=== PATIENT | female | born 1940 | race American Indian/Alaskan Native ===

== ENCOUNTER 2024-01-26 16:10 | Emergency (ER) | payer MEDICARE, MEDICAID, SELFPAY ==
[2024-01-26 16:18] VITALS: BP 150/76; PULSE 86; RESP 19; TEMP 37.1; O2SAT 96; BMI 30.2
--- NOTE | 2024-01-26 16:34 | XR_ITS ---
Examination: Pelvic ultrasound, transabdominal, complete Technique: Transabdominal ultrasound of the pelvis performed using grayscale imaging Date and time of exam: January 26, 2024 at 1924 hrs. Indications: Urinary tract infections abdominal pelvic pain beginning 5 days ago Findings: Absent uterus Ovaries not visualized No free fluid in the pelvis Impression: No pelvic mass No free fluid in the pelvis Marked urinary bladder wall thickening
--- NOTE | 2024-01-26 16:35 | PD.EDRME ---
Rapid Medical Screening Exam RME Arrival date/time: 01/26/24 16:10 83-year-old female presents emergency department complaint of pelvic pain Chief Complaint: Abdominal Pain Vital signs: Vital Signs Temperature 98.8 F 01/26/24 16:18 Pulse Rate 86 01/26/24 16:18 Respiratory Rate 19 01/26/24 16:18 Blood Pressure 150/76 H 01/26/24 16:18 Pulse Oximetry (%) 96 01/26/24 16:18 Oxygen Delivery Method Room Air 01/26/24 16:18
[2024-01-26 17:02] LABS: Basophils # (Auto) 0.1 Thou/mm3 (0.0-0.2); Basophils % (Auto) 1 % (0-2.5); Eosinophils # (Auto) 0.2 Thou/mm3 (0.0-0.5); Eosinophils % (Auto) 2 % (0-10); Hematocrit 28.8 % (36.0-46.0); Hemoglobin 9.5 g/dL (12.0-16.0); Immature Granulocytes % (Auto) 1 % (0-0); Lymphocytes # (Auto) 3.5 Thou/mm3 (1.0-4.8); Lymphocytes % (Auto) 30 % (10-50); Mean Corpuscular Hemoglobin 30.4 pg (25.0-35.0); Mean Corpuscular Volume 92 fL (80-100); Monocytes # (Auto) 0.7 Thou/mm3 (0.0-0.8); Monocytes % (Auto) 6 % (0-12); Neutrophils % (Auto) 61 % (37-80); Nucleated Red Blood Cell % 0 /100 WBC (0); Platelet Count 297 Thou/mm3 (140-440); Red Blood Count 3.12 Miln/mm3 (4.00-5.20); White Blood Count 11.5 Thou/mm3 (3.6-11.0)
[2024-01-26 17:14] LABS: Collection Type, Urine Clean Catch
[2024-01-26 17:30] LABS: Bacteria,Urine 2+; Bilirubin,Urine Negative (Negative); Blood,Urine 3+ (Negative); Glucose, Urine 4+ (Negative); Ketones,Urine Negative (Negative); Leukocyte Esterase,Urine Positive (Negative); Nitrite,Urine Negative (Negative); Protein,Urine 3+ (Neg - Trace); RBC,Urine 109 /hpf (0-3); Specific Gravity,Urine 1.013 (1.001-1.035); Squamous Epithelial Cell,Urine 7 /hpf (0-5); Urobilinogen,Urine Negative mg/dL (0.0-1.0); WBC,Urine 5781 /hpf (0-5)
[2024-01-26 17:43] LABS: Alanine Aminotransferase 24 U/L (10-49); Albumin, Serum 4.2 gm/dL (3.4-4.8); Albumin/Globulin Ratio 1.4 (1.2-2.2); Alkaline Phosphatase 294 U/L (46-116); Anion Gap 6 (7-16); Aspartate Amino Transferase 15 U/L (0-34); BUN/Creatinine Ratio 16 Ratio (12-20); Bilirubin,Total 0.2 mg/dL (0.3-1.2); Blood Urea Nitrogen 44 mg/dL (9-23); Calcium 9.1 mg/dL (8.3-10.6); Calcium (Corrected) 9.1 mg/dL (8.5-10.1); Carbon Dioxide 22.7 mMol/L (20.0-31.0); Chloride 100 mMol/L (98-107); Creatinine (Component) 2.8 mg/dL (0.6-1.3); Estimated Creatinine Clearance 14.9 mL/min (>60); Globulin 2.9 gm/dL (2.3-3.5); Osmolality,Calculated 289 (275-295); Potassium 5.6 mMol/L (3.4-5.1); Sodium 129 mMol/L (136-145); Total Protein 7.1 gm/dL (5.7-8.2); eGFR 16 See Note
[2024-01-26 17:49] LABS: Clarity,Urine Cloudy (Clear/Hazy); Color,Urine Lt-Yellow (Lt Yel-Yel); Culture Indicated,Urine Yes
[2024-01-26 18:06] LABS: Glucose 439 mg/dL (74-106)
--- NOTE | 2024-01-26 18:35 | XR_ITS ---
Examination: CT abdomen and pelvis without contrast. Coronal 3-D reconstructions. Sagittal 2-D reconstructions. Date and time of exam:January 26, 2024 1907 hrs. Comparison August 03, 2023 Indications: Abdominal pain flank pain today CTDI: vol (mGy): 9.74 DLP: (mGycm): 565 Technique: Axial images of the abdomen have been obtained, 3 mm slice thickness Intravenous contrast material has not been administered. Low dose protocols were performed. One or more of the following dose reduction techniques were used; automated exposure control, adjustment of the mA and/or KV according to patient size, use of iterative reconstruction technique. Findings: No focal liver or splenic lesions Absent gallbladder No pancreatic mass, small pancreatic calcifications Normal adrenal glands Moderate bilateral renal parenchymal scar formation Minimal bilateral hydronephrosis No renal or ureteral calculi No pericecal inflammatory change No bowel obstruction Severe thickening of the urinary bladder with pericystic inflammatory change, urinary bladder wall measuring up to 21 mm on the right side No diverticulitis Moderate disc narrowing L5-S1 Impression: Severe thickening of the urinary bladder wall with pericystic inflammatory change, this may be secondary to cystitis with ureterovesical reflux producing mild bilateral hydronephrosis with bilateral urinary tract infection, however, bladder carcinoma is not excluded, consider cystography follow-up
[2024-01-26 20:09] VITALS: BP 146/68; PULSE 85; RESP 12; TEMP 37.1; O2SAT 100
--- NOTE | 2024-01-26 20:20 | PD.EDABDPN ---
ED Abdominal Pain RME/HPI General Chief Complaint: Abdominal Pain Stated complaint: UTI THAT TURNED INTO SOMETHING ELSE Arrival date/time: 01/26/24 16:10 Source: patient Mode of arrival: ambulatory Limitations: no limitations RME / HPI RME / HPI narrative: 01/26/24 16:10 83-year-old female presents emergency department complaint of pelvic pain Dr. Ayala?s Main ED Evaluation: 83-year-old female with history of irritable bladder who presents with worsening pain and polyuria. She denies dysuria. She takes insulin for her diabetes where she took 45 units this morning because she was in town shopping; she did not take her afternoon insulin. Related Data Home Medications ?Medication ?Instructions ?Recorded ?Confirmed loratadine 10 mg tablet 10 mg PO QDAY 04/22/21 08/03/23 aspirin 81 mg tablet,delayed 81 mg PO DAILY 06/20/21 08/03/23 release omeprazole 20 mg capsule,delayed 20 mg PO QDAY 06/20/21 08/03/23 release insulin degludec 200 unit/mL (3 45 unit subcut QDAY 08/12/21 08/03/23 mL) subcutaneous pen (Tresiba FlexTouch U-200 insulin) atorvastatin 20 mg tablet 20 mg PO HS 03/11/22 08/03/23 benzonatate 100 mg capsule 100 mg PO TID 03/11/22 08/03/23 insulin aspart U-100 100 unit/mL 6 unit subcut TIDWM 03/11/22 08/03/23 (3 mL) subcutaneous pen (Novolog FlexPen U-100 Insulin aspart) amitriptyline 25 mg tablet 25 mg PO QDAY PRN Anxiety 01/25/23 08/03/23 diltiazem HCl 240 mg 240 mg PO QDAY 05/19/23 08/03/23 tablet,extended release 24 hr Previous Rx's ?Medication ?Instructions ?Recorded amlodipine 10 mg tablet 10 mg PO QDAY #30 tabs 01/27/23 furosemide 40 mg tablet (Lasix) 40 mg PO QAM #30 tabs 05/25/23 losartan 50 mg tablet 50 mg PO QDAY #30 tabs 05/25/23 hydroxyzine pamoate 25 mg capsule 25 mg PO HS #30 caps 06/25/23 pentosan polysulfate sodium 100 mg 100 mg PO TID #90 caps 09/21/23 capsule cephalexin 500 mg capsule 500 mg PO TID 5 days #15 caps 01/26/24 Allergies Allergy/AdvReac Type Severity Reaction Status Date / Time amoxicillin Allergy Severe Vomiting Verified 01/26/24 16:16 codeine Allergy Severe PALPITATION Verified 01/26/24 16:16 S diazepam Allergy Severe RAPID Verified 01/26/24 16:16 HEARTRATE hydrocodone Allergy Severe Vomiting Verified 01/26/24 16:16 hydromorphone Allergy Severe Agitated Verified 01/26/24 16:16 ibuprofen Allergy Severe BLEEDING Verified 01/26/24 16:16 IN STOMACH PER PT meperidine Allergy Severe RAPID Verified 01/26/24 16:16 HEARTRATE morphine Allergy Severe RAPID Verified 01/26/24 16:16 HEARTRATE propoxyphene Allergy Severe RAPID Verified 01/26/24 16:16 HEARTRATE adhesive tape AdvReac Severe Hives Verified 01/26/24 16:16 levofloxacin AdvReac Severe VOMITS Verified 01/26/24 16:16 Review of Systems Review of Systems Systems Reviewed: All systems reviewed, normal except as documented Past Medical History Past Medical History NEUROLOGIC: Positive Traumatic Brain Injury; Negative Neurological Disorders, Cerebrovascular Accident, Transient Ischemic Attacks (TIA), Dementia, Alzheimer's Disease, Parkinson's Disease, Brain Tumor, Meningitis, Seizures, Epilepsy, Multiple Sclerosis, Cerebral Palsy, Amyotrophic Lateral Sclerosis (ALS/Lilliam Gehrig's), Guillain-[place] Syndrome, Spina Bifida, Paralysis, Peripheral Neuropathy, Junior's Palsy, Subdural Hematoma, Migraine, Head Trauma or Spinal Cord Injury CARDIAC: Positive Cardiac Disorders, Myocardial Infarction, Hypercholesterolemia, Congestive Heart Failure, Edema, Deep Vein Thrombosis and Hypertension; Negative Cardiac Arrhythmia, Atrial Fibrillation, Angina, Heart Murmur, Coronary Artery Disease, Atherosclerotic Heart Disease, Peripheral Vascular Disease, Aneurysm, Congenital Heart Disease, Valvular Heart Disease, Rheumatic Fever, Cardiomyopathy, Pericarditis, Cellulitis, Hypotension or Varicose Veins RESPIRATORY: Positive Chronic Obstructive Pulmonary Disease (COPD), Asthma, Bronchitis and Pneumonia; Negative Emphysema, Pulmonary Fibrosis, Cystic Fibrosis, Tuberculosis, Pulmonary Embolism, Pulmonary Edema or Sleep Apnea GASTROINTESTINAL: Positive Gastrointestinal Disorders, Gastroesophageal Reflux Disease and Obesity; Negative Hepatitis, Cirrhosis, Pancreatitis, Celiac Disease, Gall Bladder Disease, Gastrointestinal Bleed, Esophageal Varices, Romero's Esophagus, Colitis, Ulcerative Colitis, Diverticulitis, Diverticulosis, Ulcer, Colorectal Cancer, Irritable Bowel, Crohn's Disease, Obstructive Bowel, Hiatal Hernia or Hemorrhoids GENITOURINARY: Positive Genitourinary Disorders and Renal Disease; Negative Kidney Stones, Polycystic Kidney Disease, Neurogenic Bladder, Inguinal Hernia, Dialysis or Benign Prostatic Hyperplasia REPRODUCTIVE: Positive Previous Pregnancies; Negative Breast Cancer, Endometriosis, Genital Herpes, Gonorrhea, Pelvic Inflammatory Disease, Syphilis or Uterine Prolapse MUSCULOSKELETAL: Positive Musculoskeletal Disorders and Arthritis; Negative Muscular Dystrophy, Myasthenia Gravis, Marfan's Syndrome, Bone Cancer, Rheumatoid Arthritis, Osteoporosis, Degenerative Disk Disease, Gout, Scoliosis, Carpal Tunnel Syndrome, Fibromyalgia, Fractures, Degenerative Joint Disease, Osteomyelitis or Poliovirus ENT: Negative Cataracts, Glaucoma, Blind, Retinal Detachment, Macular Degeneration, Ear Infection, Deafness, Head Trauma or Eye Prosthesis ENDOCRINE: Positive Endocrine Disorders and Diabetes Mellitus Type 2; Negative Diabetes Mellitus Type 1, Hypoglycemia, [place]'s Syndrome, [place]'s Disease, Hyperthyroidism, Hypothyroidism, Parathyroid Disease, Pituitary Disease, Systemic Lupus Erythematosus, Syndrome of Inappropriate Antidiuretic Hormone (SIADH), Adrenal Disease or Graves' Disease HEMATOLOGIC: Negative Blood Disorders, Sickle Cell Disease or Clotting Problems PSYCHO/SOCIAL: Positive Anxiety; Negative Psychiatric Problems, Schizophrenia, Recreational Drug Use, Bipolar Disorder, Depression, Behavior Problems, Self-Mutilation, Attention Deficit Disorder, Attention Deficit Hyperactivity Disorder, Depression, Post Traumatic Stress Disorder or Eating Disorder OTHER HISTORY: Positive Hospitalization, Blood Transfusions (1 unit PRBC today 09/18), Chicken Pox, Measles and Mumps; Negative Autoimmune Disease, Down Syndrome, Autism, Developmental Delay, Shingles, Falls, Blood Transfusion Reaction, Anesthesia Reactions, Organ Transplant, Chemotherapy, Radiation Therapy, Hyperbaric Therapy, MRSA, VRSA, Vancomycin-Resistant Enterococci, Human Immunodeficiency Virus (HIV), Rubella (Syriac Measles), Pertussis, Clostridium Difficile, Cancer, Breast Cancer, Cervical Cancer, Colorectal Cancer, Lung Cancer or Ovarian Cancer Family History FAMILY HISTORY: Positive Family Respiratory Disorders, Family Cardiac Disorders and Family Cancer; Negative Family Psychiatric Problems, Family Gastrointestinal Problems, Family Surgery or Family Anesthesia Reaction Surgical History SURGICAL: Positive Angiogram, Abdominal Surgery, Joint Replacement and Hysterectomy; Negative Cardiac Surgery, Open Heart Surgery, Coronary Artery Bypass Graft, Valve Replacement, Vascular Surgery, Coronary Stent, Cardiac Catheterization, Pacemaker, Auto Implanted Cardiovert Defib, Carotid Endarterectomy, Endocrine Surgery, Thyroidectomy, Ear Surgery, Tympanostomy Tube, Eye Surgery, Nose Surgery, Oral Surgery, Tonsillectomy, Adenoidectomy, Cochlear Implant, Corneal Transplant, Throat Surgery, Tracheostomy, Gastric Bypass Surgery, Gastrostomy, Bowel Surgery, Nephrectomy, Amputation, Arthroscopy, Neurologic Surgery, Brain Shunt, Mastectomy, Lumpectomy, Tubal Ligation, Section or Organ Transplant Social History SMOKING STATUS: Never smoker SECOND HAND EXPOSURE: No SUBSTANCE USE: does not use ED Exam Narrative Physical exam: GENERAL APPEARANCE: AxOx4, generally well-appearing, no acute distress. HEENT: NC, AT. MMM. EOMI, clear conjunctiva, oropharynx clear. NECK: Supple without lymphadenopathy. No stiffness or restricted ROM. HEART: Normal rate and regular rhythm, normal S1/S1, no m/r/g LUNGS: CTAB, moving air well. No crackles or wheezes are heard. ABDOMEN: Soft, nontender, nondistended with good bowel sounds heard. BACK: No midline C/T/L spine pain or deformity, No CVAT, no obvious deformity. EXTREMITIES: Without cyanosis, clubbing or edema. MUSCULOSKELETAL: FROM of all major joints, no chest tenderness NEUROLOGICAL: Grossly nonfocal. Alert and oriented, moving all 4 extremities. CN not formally tested but appear grossly intact. Observed to ambulate with normal gait. Skin: Warm and dry without any rash. General Limitations: Present no limitations Course Quality Measures none Orders Category Date Time Status CT abdomen pelvis wo con Stat Exams 01/26/24 18:35 Completed US pelvic complete Stat Exams 01/26/24 16:34 Completed CBC Stat Lab 01/26/24 16:42 Completed Comprehensive Metabolic Panel Stat Lab 01/26/24 16:42 Completed UA, C/S IF [Urinalysis, C/S if Indicated] Stat Lab 01/26/24 17:00 Completed Urine Culture Stat Lab 01/26/24 17:00 Received Insulin Regular Med 01/26/24 20:02 Discontinued 6 unit SC X1 ONE Sodium Chloride 0.9% 1000 ml [Ns] 1,000 ml Med 01/26/24 20:02 Discontinued IV 999 mls/hr cefTRIAXone/D5w 1gm IV premix [Rocephin/D5w 1gm IV Med 01/26/24 20:02 Discontinued premix] 50 ml IV X1 Vital Signs Vital signs: Vital Signs Temperature 98.8 F 01/26/24 16:18 Pulse Rate 86 01/26/24 16:18 Respiratory Rate 19 01/26/24 16:18 Blood Pressure 150/76 H 01/26/24 16:18 Pulse Oximetry (%) 96 01/26/24 16:18 Oxygen Delivery Method Room Air 01/26/24 16:18 Abdominal Pain MDM MDM Narrative MDM Narrative:: Scribe Attestation: ISami am scribing for and in the presence of Dr. Ayala. Provider Notation: Although this document has been carefully reviewed, there may still be some phonetic and other typographical errors. These errors are purely grammatical due to imperfections in the software program and should not be construed in any way to compromise the substance of the patient's medical care during this visit. Patient data External records reviewed:: [facility] previous records Clinical information provided by:: patient Social determinants that could affect healthcare access:: none Patient has the following chronic illnesses:: hypertension, T2DM, CKD stage IV follows up with Dr. Brito, anxiety How is presenting disease/condition affected by chronic disease/condition?: uneffected by Evaluation data The following diagnostics were reviewed and interpreted by me:: lab results and radiology exam(s) Lab and/or radiology exams considered but not ordered:: none Interpretation Summary: Examination: Pelvic ultrasound, transabdominal, complete Technique: Transabdominal ultrasound of the pelvis performed using grayscale imaging Date and time of exam: January 26, 2024 at 1924 hrs. Indications: Urinary tract infections abdominal pelvic pain beginning 5 days ago Findings: Absent uterus Ovaries not visualized No free fluid in the pelvis Impression: No pelvic mass No free fluid in the pelvis Marked urinary bladder wall thickening Dictated By: Rory Meeks MD Examination: CT abdomen and pelvis without contrast. Coronal 3-D reconstructions. Sagittal 2-D reconstructions. Date and time of exam:January 26, 2024 1907 hrs. Comparison August 03, 2023 Indications: Abdominal pain flank pain today Findings: No focal liver or splenic lesions Absent gallbladder No pancreatic mass, small pancreatic calcifications Normal adrenal glands Moderate bilateral renal parenchymal scar formation Minimal bilateral hydronephrosis No renal or ureteral calculi No pericecal inflammatory change No bowel obstruction Severe thickening of the urinary bladder with pericystic inflammatory change, urinary bladder wall measuring up to 21 mm on the right side No diverticulitis Moderate disc narrowing L5-S1 Impression: Severe thickening of the urinary bladder wall with pericystic inflammatory change, this may be secondary to cystitis with ureterovesical reflux producing mild bilateral hydronephrosis with bilateral urinary tract infection, however, bladder carcinoma is not excluded, consider cystography follow-up Dictated By: Rory Meeks MD Medications / Prescriptions Medications or Prescriptions considered but not ordered:: None Medication administrations:: Medication Administration History Discontinued Medications Sodium Chloride (Ns) 1,000 mls @ 999 mls/hr IV .Q1H1M ONE Stop: 01/26/24 21:02 Last Infusion: 01/26/24 22:07 Dose: Infused Documented By: Admin: 01/26/24 20:52 Dose: 999 mls/hr Documented By: JEANNINE Ceftriaxone Sodium/Dextrose (Rocephin/D5w 1gm Iv Premix) 50 mls @ 100 mls/hr IV X1 ONE Stop: 01/26/24 20:31 Last Infusion: 01/26/24 21:29 Dose: Infused Documented By: Admin: 01/26/24 20:52 Dose: 100 mls/hr Documented By: JEANNINE Insulin Human Regular (Insulin Hum Regular 1 Unit/0.01 Ml (Per Unit)) 6 unit SC X1 ONE Stop: 01/26/24 20:03 Last Admin: 01/26/24 20:51 Dose: 6 unit Documented By: JEANNINE Co-signed By: MARKIE As above Consultations Consultation(s) initiated? (list below): No Diagnosis Differential diagnosis abdominal pain: abdominal pain, diverticulitis, gastroenteritis and pancreatitis Most likely diagnosis given after review of the tests above:: Urinary tract infection, Hyperglycemia without ketosis Admission Indicated Admission indicated?: not indicated Admission Request Was there a request for admission?: No Disposition Plan Disposition Plan: Discharge Discharge Attestation Discharge Attestation: The patient and all family members were given an opportunity to ask questions and understood the discharge instructions. Discharge instructions specifically effects, indications for sooner follow up or return to the emergency department, and the expected course of current diagnosis. Patient condition: Stable Discharge Plan Plan Patient Disposition: HOME (Self Care) Prescriptions/Referrals Prescriptions/Med Rec: New cephalexin 500 mg capsule 500 mg PO TID 5 Days Qty: 15 0RF No Action loratadine 10 mg tablet 10 mg PO QDAY Patient Comments: TAKE 1 TABLET BY MOUTH EVERY DAY insulin degludec [Tresiba FlexTouch U-200] 200 unit/mL (3 mL) insulin pen 45 unit SUBCUT QDAY aspirin 81 mg Tablet,Delayed Release (Dr/Ec) 81 mg PO DAILY Hold Instructions: Resume on 09/29/23. Please hold until you see your PCP omeprazole 20 mg Capsule,Delayed Release(Dr/Ec) 20 mg PO QDAY amitriptyline 25 mg tablet 25 mg PO QDAY PRN (Reason: Anxiety) amlodipine 10 mg tablet 10 mg PO QDAY Qty: 30 0RF Hold Instructions: untill follow cardiology outpatient diltiazem HCl 240 mg Tablet Extended Release 24 Hr 240 mg PO QDAY Hold Instructions: Resume on 10/05/23. Please f/u with your PCP before resuming this medicine furosemide [Lasix] 40 mg tablet 40 mg PO QAM Qty: 30 0RF Hold Instructions: Resume on 09/28/23. Please f/u with your PCP before starting this medicine losartan 50 mg tablet 50 mg PO QDAY Qty: 30 1RF atorvastatin 20 mg tablet 20 mg PO HS benzonatate 100 mg capsule 100 mg PO TID Patient Comments: TAKE 1 CAPSULE BY MOUTH TWICE DAILY insulin aspart U-100 [Novolog FlexPen U-100 Insulin] 100 unit/mL (3 mL) insulin pen 6 unit SUBCUT TIDWM Patient Comments: INJECT 10 UNITS UNDER THE SKIN THREE TIMES DAILY WITH MEALS hydroxyzine pamoate 25 mg capsule 25 mg PO HS Qty: 30 0RF pentosan polysulfate sodium 100 mg capsule 100 mg PO TID Qty: 90 3RF Referrals: Collin Herrera PA-C [Primary Care Provider] - In 1 week Problem List Clinical Impression: Urinary tract infection, Hyperglycemia without ketosis Patient/Caregiver Discharge Instructions Education Materials: ED Diabetes with High Blood Sugar, ED CYSTITIS Female Adult Additional Instructions: Follow-up with your primary care doctor in 2 to 3 days for recheck. You can return to the emergency department sooner if symptoms worsen or if you notice any new, concerning issues. Print Language: Trinidadian Stand Alone Forms: [facility] Award Info., Patient Portal Info Letter
[2024-01-26] MEDS: INSULIN HUM REGULAR 1 UNIT/0.01 ML (PER UNIT) 6 UNIT SC (20:51)
[2024-01-26] MEDS: SODIUM CHLORIDE 0.9% 1000 ML 1,000 ML 999 ML IV (20:52)
[2024-01-26] MEDS: cefTRIAXone/D5w 1gm IV premix 50 ML IV (20:52)
[2024-01-26 22:12] VITALS: BP 141/74; PULSE 98; RESP 15; O2SAT 100
== END 2024-01-26 22:24 | disposition home or self-care (01) ==
PROVIDERS: Nurse Practitioner Primary Care; Emergency Provider Emergency Medicine; PCP Physician Assistant
DX: N39.0 Urinary tract infection, site not specified (principal); E11.65 Type 2 diabetes mellitus with hyperglycemia; N32.89 Other specified disorders of bladder; Z79.4 Long term (current) use of insulin
CPT/HCPCS: 36415; 74176; 76856; 80053; 81001; 85025; 87077; 87086; 87186; 96361; 96365; 96372; 99284; J0696; J1815; J7030

== ENCOUNTER 2024-02-17 16:48 | Emergency (ER) | payer MEDICARE, MEDICAID, SELFPAY ==
[2024-02-17 17:01] VITALS: BP 147/78; PULSE 81; RESP 17; TEMP 36.8; O2SAT 99
[2024-02-17 17:11] VITALS: PULSE 81; RESP 18; O2SAT 99
--- NOTE | 2024-02-17 17:33 | EKG_ITS ---
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
--- NOTE | 2024-02-17 17:33 | XR_ITS ---
Examination: CT pelvis without intravenous contrast. 2-D sagittal and coronal reconstructions. Date and time of exam:February 17, 2024 1847 hours INDICATIONS: Patient states left hip pain onset today CTDI: vol (mGy) :9.67 DLP: (mGycm) : 313 Technique: Multiple 3 mm axial sections of the pelvis have been obtained with the 64 slice high resolution scanner. 2-D sagittal and coronal reconstructions. Low dose protocols were performed. One or more of the following dose reduction techniques were used; automated exposure control, adjustment of the mA and/or KV according to patient size, use of iterative reconstruction technique. Findings: Scattered colonic diverticulosis Moderate air and stool in the rectum Absent uterus No pelvic mass Abnormal urinary bladder wall thickening, measuring up to 10 mm on the right side laterally Severe osteopenia Sacral segments intact Iliac bones acetabular regions anterior rami intact Old fracture right inferior pubic ramus Hips intact Moderate narrowing hip joints IMPRESSION: Abnormal eccentric urinary bladder wall thickening measuring up to 10 mm on the right side laterally, differential would include cystitis, bladder carcinoma not excluded, consider elective urinary bladder sonography follow-up Moderate narrowing hip joints No acute hip or pelvic fracture
--- NOTE | 2024-02-17 17:33 | XR_ITS ---
Examination: Knee bilateral, 6 views Technique: Knee AP, lateral, oblique each knee total 6 views Date and time of exam: February 17, 2024 1830 hours INDICATIONS: Patient fell today with injury to both knees, bilateral knee pain. FINDINGS: Significant osteopenia. No fracture or dislocation involving either knee IMPRESSION: No fracture or dislocation involving either knee
--- NOTE | 2024-02-17 17:33 | XR_ITS ---
Examination: CT lumbar spine, without contrast. 2-D sagittal reconstructions. 2-D coronal reconstructions. 3-D reconstructions. Date and time of exam:February 17, 2024 1647 hours INDICATIONS: Onset lower back pain today CTDI: vol (mGy):24.4 DLP: (mGycm):752 Technique: Multiple 1.25 mm axial sections of the lumbar spine without intravenous contrast have been obtained. 2-D sagittal and coronal reconstructions have been obtained. 3-D reconstructions have been obtained. Low dose protocols were performed. One or more of the following dose reduction techniques were used; automated exposure control, adjustment of the mA and/or KV according to patient size, use of iterative reconstruction technique. Findings: Severe osteopenia No acute lumbar vertebral body compression fracture Moderate disc narrowing posteriorly L5-S1 Lumbar pedicles, laminae, transverse and posterior spinous processes intact L5-S1 4 mm central right paracentral disc bulge displacing the right S1 nerve root and contiguous with the left S1 nerve root L4-L5 no disc protrusion L3-L4 no disc protrusion L2-L3 no disc protrusion L1-L2 no disc protrusion IMPRESSION: No lumbar fracture L5-S1 4 mm central right paracentral disc bulge displacing the right S1 nerve root and contiguous with the left S1 nerve root
--- NOTE | 2024-02-17 17:36 | EDRME_ITS ---
Rapid Medical Screening Exam [facility] Arrival date/time: 02/17/24 16:48 83 yr old female presents with complaints of back pain and knee pain after fall Chief Complaint: Fall Vital signs: Vital Signs Temperature 98.3 F 02/17/24 17:01 Pulse Rate 81 02/17/24 17:01 Respiratory Rate 17 02/17/24 17:01 Blood Pressure 147/78 H 02/17/24 17:01 Pulse Oximetry (%) 99 02/17/24 17:01 Oxygen Delivery Method Room Air 02/17/24 17:01
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
--- NOTE | 2024-02-17 20:15 | PD.EDFALL ---
ED Fall Injury RME/HPI General Chief Complaint: Fall Stated Complaint: FALL Time Seen by Provider: 02/17/24 19:53 Arrival date/time: 02/17/24 16:48 RME / HPI RME / HPI Narrative: 83-year-old female patient with history of hypertension, diabetes mellitus, came in for evaluation regarding knee pain. Patient sustained a ground-level fall earlier today landing on her knee resulting in the pain described as dull ache severity mild. Patient also complained of back pain and pelvic pain severity mild. Patient is ambulatory denies any LOC denies any other injury. No medications taken prior to arrival. Related Data Home Medications ?Medication ?Instructions ?Recorded ?Confirmed loratadine 10 mg tablet 10 mg PO QDAY 04/22/21 08/03/23 aspirin 81 mg tablet,delayed 81 mg PO DAILY 06/20/21 08/03/23 release omeprazole 20 mg capsule,delayed 20 mg PO QDAY 06/20/21 08/03/23 release insulin degludec 200 unit/mL (3 45 unit subcut QDAY 08/12/21 08/03/23 mL) subcutaneous pen (Tresiba FlexTouch U-200 insulin) atorvastatin 20 mg tablet 20 mg PO HS 03/11/22 08/03/23 benzonatate 100 mg capsule 100 mg PO TID 03/11/22 08/03/23 insulin aspart U-100 100 unit/mL 6 unit subcut TIDWM 03/11/22 08/03/23 (3 mL) subcutaneous pen (Novolog FlexPen U-100 Insulin aspart) amitriptyline 25 mg tablet 25 mg PO QDAY PRN Anxiety 01/25/23 08/03/23 diltiazem HCl 240 mg 240 mg PO QDAY 05/19/23 08/03/23 tablet,extended release 24 hr Previous Rx's ?Medication ?Instructions ?Recorded amlodipine 10 mg tablet 10 mg PO QDAY #30 tabs 01/27/23 furosemide 40 mg tablet (Lasix) 40 mg PO QAM #30 tabs 05/25/23 losartan 50 mg tablet 50 mg PO QDAY #30 tabs 05/25/23 hydroxyzine pamoate 25 mg capsule 25 mg PO HS #30 caps 06/25/23 pentosan polysulfate sodium 100 mg 100 mg PO TID #90 caps 09/21/23 capsule Allergies Allergy/AdvReac Type Severity Reaction Status Date / Time amoxicillin Allergy Severe Vomiting Verified 01/26/24 16:16 codeine Allergy Severe PALPITATION Verified 01/26/24 16:16 S diazepam Allergy Severe RAPID Verified 01/26/24 16:16 HEARTRATE hydrocodone Allergy Severe Vomiting Verified 01/26/24 16:16 hydromorphone Allergy Severe Agitated Verified 01/26/24 16:16 ibuprofen Allergy Severe BLEEDING Verified 01/26/24 16:16 IN STOMACH PER PT meperidine Allergy Severe RAPID Verified 01/26/24 16:16 HEARTRATE morphine Allergy Severe RAPID Verified 01/26/24 16:16 HEARTRATE propoxyphene Allergy Severe RAPID Verified 01/26/24 16:16 HEARTRATE adhesive tape AdvReac Severe Hives Verified 01/26/24 16:16 levofloxacin AdvReac Severe VOMITS Verified 01/26/24 16:16 Review of Systems Review of Systems Narrative Review of Systems: Review of system reviewed and within normal limits except mentioned in HPI ED Exam Narrative Physical exam: VITAL SIGNS: Reviewed. GENERAL APPEARANCE: Alert and interactive, follows commands, no acute distress, HEAD AND FACE: Non-traumatic. ENT: PERRL, pink conjunctivitis, eyelid no trauma, Mucous membrane moist. NECK: Supple, nontender, no nuchal rigidity. CHEST: No tenderness, no crepitus, no paradoxical movement, no retractions. LUNGS: Clear, well ventilated, symmetric, no rales, no wheezing, no ronchi, no stridor, good breath sounds bilaterally. HEART: Regular rate, regular rhythm, no murmur, no gallops. ABDOMEN: Soft, positive bowel sounds, nondistended, no guarding, nontender, no rebound, no masses,+ pelvic tenderness RECTAL: Deferred. GENITAL: Deferred. NEUROLOGICAL: Gross motor function intact sensory function intact, Appropriate for age. MUSCULOSKELETAL: low back tenderness, full range of motion. EXTREMITIES: Left knee tenderness, no swelling no deformity, full range of motion. SKIN: Color pink, dry, no rash, no lacerations, no abrasions, no contusions. LYMPHATICS: Deferred. Course Quality Measures none Orders Category Date Time Status EKG (ED ONLY) *Do not use* NOW Care 02/17/24 17:[address] lumbar spine wo con Stat Exams 02/17/24 17:[address] pelvis wo con Stat Exams 02/17/24 17:33 Completed EKG (ED Only) Stat Exams 02/17/24 17:33 Draft XR knee BI 3V Stat Exams 02/17/24 17:33 Completed Vital Signs Vital signs: Vital Signs Temperature 98.3 F 02/17/24 17:01 Pulse Rate 81 02/17/24 17:01 Respiratory Rate 17 02/17/24 17:01 Blood Pressure 147/78 H 02/17/24 17:01 Pulse Oximetry (%) 99 02/17/24 17:01 Oxygen Delivery Method Room Air 02/17/24 17:01 Fall MDM Narrative MDM Narrative:: 83-year-old female patient with history of hypertension, diabetes mellitus, came in for evaluation regarding knee pain. Patient sustained a ground-level fall earlier today landing on her knee resulting in the pain described as dull ache severity mild. Patient also complained of back pain and pelvic pain severity mild. Patient is ambulatory denies any LOC denies any other injury. No medications taken prior to arrival. Patient's CT scan of the pelvis came back unremarkable CT scan of the lumbar spine came back with no acute fracture dislocation, x-ray of the knee also came back unremarkable. Results discussed with the patient. Patient data External records reviewed:: None Clinical information provided by:: none Social determinants that could affect healthcare access:: none Patient has the following chronic illnesses:: Hypertension diabetes mellitus How is presenting disease/condition affected by chronic disease/condition?: exacerbated by Evaluation data The following diagnostics were reviewed and interpreted by me:: radiology exam(s) Lab and/or radiology exams considered but not ordered:: None Interpretation Summary: CT scan of the pelvis came back unremarkable. CT scan of the lumbar spine came back with no acute fracture or dislocation. X-ray of the knee showed no fracture dislocation Medications / Prescriptions Medications or Prescriptions considered but not ordered:: None Medication administrations:: None Consultations Consultation(s) initiated? (list below): No Diagnosis Fall Differential Diagnosis: other (Knee pain, low back pain, pelvic pain) Most likely diagnosis given after review of the tests above:: Pelvic pain, knee pain Admission Indicated Admission indicated?: not indicated Admission Request Was there a request for admission?: No Disposition Plan Disposition Plan: Discharge Discharge Attestation Discharge Attestation: The patient was given an opportunity to ask questions and understood the discharge instructions. Discharge instructions specifically effects, indications for sooner follow up or return to the emergency department, and the expected course of current diagnosis. Patient condition: Stable Discharge Plan Plan Patient Disposition: HOME (Self Care) Disposition Comment: stable Prescriptions/Referrals Prescriptions/Med Rec: No Action loratadine 10 mg tablet 10 mg PO QDAY Patient Comments: TAKE 1 TABLET BY MOUTH EVERY DAY insulin degludec [Tresiba FlexTouch U-200] 200 unit/mL (3 mL) insulin pen 45 unit SUBCUT QDAY aspirin 81 mg Tablet,Delayed Release (Dr/Ec) 81 mg PO DAILY Hold Instructions: Resume on 09/29/23. Please hold until you see your PCP omeprazole 20 mg Capsule,Delayed Release(Dr/Ec) 20 mg PO QDAY amitriptyline 25 mg tablet 25 mg PO QDAY PRN (Reason: Anxiety) amlodipine 10 mg tablet 10 mg PO QDAY Qty: 30 0RF Hold Instructions: untill follow cardiology outpatient diltiazem HCl 240 mg Tablet Extended Release 24 Hr 240 mg PO QDAY Hold Instructions: Resume on 10/05/23. Please f/u with your PCP before resuming this medicine furosemide [Lasix] 40 mg tablet 40 mg PO QAM Qty: 30 0RF Hold Instructions: Resume on 09/28/23. Please f/u with your PCP before starting this medicine losartan 50 mg tablet 50 mg PO QDAY Qty: 30 1RF atorvastatin 20 mg tablet 20 mg PO HS benzonatate 100 mg capsule 100 mg PO TID Patient Comments: TAKE 1 CAPSULE BY MOUTH TWICE DAILY insulin aspart U-100 [Novolog FlexPen U-100 Insulin] 100 unit/mL (3 mL) insulin pen 6 unit SUBCUT TIDWM Patient Comments: INJECT 10 UNITS UNDER THE SKIN THREE TIMES DAILY WITH MEALS hydroxyzine pamoate 25 mg capsule 25 mg PO HS Qty: 30 0RF pentosan polysulfate sodium 100 mg capsule 100 mg PO TID Qty: 90 3RF Referrals: Collin Herrera PA-C [Primary Care Provider] - In 1 week Problem List Clinical Impression: Acute knee pain, Acute pelvic pain, Fall Patient/Caregiver Discharge Instructions Discharge Activity: activity as tolerated Education Materials: ED Contusion, Lower Extremity Additional Instructions: Thank you for the opportunity for serving you today. You are stable for discharged . You are advised to: Follow-up with your PCP in 1 to 2 days Return to ED for worsening of symptoms Increase oral fluids Take [id number] Tylenol or Motrin as needed for pain Print Language: Japanese Stand Alone Forms: Grace Award Info., Patient Portal Info Letter PA/ANESTHESIOLOGY TECHNOLOGIST Supervising Physician CARLEEN/ANESTHESIOLOGY TECHNOLOGIST Supervising Physician: MD Roger
== END 2024-02-17 20:34 | disposition home or self-care (01) ==
PROVIDERS: Emergency Provider Emergency Medicine; PCP Physician Assistant
DX: S89.92XA Unspecified injury of left lower leg, initial encounter (principal); S89.91XA Unspecified injury of right lower leg, initial encounter; R10.2 Pelvic and perineal pain; M54.50 Low back pain, unspecified; I45.10 Unspecified right bundle-branch block; I10 Essential (primary) hypertension; W18.30XA Fall on same level, unspecified, initial encounter
CPT/HCPCS: 72131; 72192; 73562; 93005; 99284

== ENCOUNTER 2024-02-28 21:31 | Emergency (ER) | payer MEDICARE, MEDICAID, SELFPAY ==
[2024-02-28 21:37] VITALS: PULSE 89; RESP 16; O2SAT 98
--- NOTE | 2024-02-28 21:50 | PD.EDADULT ---
ED General RME/HPI General Chief complaint: General Adult/Misc Complain Stated complaint: WEAKNESS Time Seen by Provider: 02/28/24 21:55 Arrival date/time: 02/28/24 21:31 CC: High glucose monitor HPI patient took her blood sugar this evening, noticed that it said high , and came to the emergency room the patient denies shortness of breath difficulty breathing nausea vomiting diarrhea difficulty urinating painful urination or bloody urination. Patient states she took 10 units of her fast acting insulin but got no results. Related Data Home Medications ?Medication ?Instructions ?Recorded ?Confirmed loratadine 10 mg tablet 10 mg PO QDAY 04/22/21 08/03/23 aspirin 81 mg tablet,delayed 81 mg PO DAILY 06/20/21 08/03/23 release omeprazole 20 mg capsule,delayed 20 mg PO QDAY 06/20/21 08/03/23 release insulin degludec 200 unit/mL (3 45 unit subcut QDAY 08/12/21 08/03/23 mL) subcutaneous pen (Tresiba FlexTouch U-200 insulin) atorvastatin 20 mg tablet 20 mg PO HS 03/11/22 08/03/23 benzonatate 100 mg capsule 100 mg PO TID 03/11/22 08/03/23 insulin aspart U-100 100 unit/mL 6 unit subcut TIDWM 03/11/22 08/03/23 (3 mL) subcutaneous pen (Novolog FlexPen U-100 Insulin aspart) amitriptyline 25 mg tablet 25 mg PO QDAY PRN Anxiety 01/25/23 08/03/23 diltiazem HCl 240 mg 240 mg PO QDAY 05/19/23 08/03/23 tablet,extended release 24 hr Previous Rx's ?Medication ?Instructions ?Recorded amlodipine 10 mg tablet 10 mg PO QDAY #30 tabs 01/27/23 furosemide 40 mg tablet (Lasix) 40 mg PO QAM #30 tabs 05/25/23 losartan 50 mg tablet 50 mg PO QDAY #30 tabs 05/25/23 hydroxyzine pamoate 25 mg capsule 25 mg PO HS #30 caps 06/25/23 pentosan polysulfate sodium 100 mg 100 mg PO TID #90 caps 09/21/23 capsule Allergies Allergy/AdvReac Type Severity Reaction Status Date / Time amoxicillin Allergy Severe Vomiting Verified 01/26/24 16:16 codeine Allergy Severe PALPITATION Verified 01/26/24 16:16 S diazepam Allergy Severe RAPID Verified 01/26/24 16:16 HEARTRATE hydrocodone Allergy Severe Vomiting Verified 01/26/24 16:16 hydromorphone Allergy Severe Agitated Verified 01/26/24 16:16 ibuprofen Allergy Severe BLEEDING Verified 01/26/24 16:16 IN STOMACH PER PT meperidine Allergy Severe RAPID Verified 01/26/24 16:16 HEARTRATE morphine Allergy Severe RAPID Verified 01/26/24 16:16 HEARTRATE propoxyphene Allergy Severe RAPID Verified 01/26/24 16:16 HEARTRATE adhesive tape AdvReac Severe Hives Verified 01/26/24 16:16 levofloxacin AdvReac Severe VOMITS Verified 01/26/24 16:16 Review of Systems Review of Systems Narrative Review of Systems: GEN: No fever, no chills, no weight loss EYES: No discharge, no visual changes, no pain HEENT: No ear pain, no congestion, no sore throat PULM: No shortness of breath, no cough, no congestion CV: No chest pain, no dyspnea on exertion, no palpitations GI: No nausea, no vomiting, no diarrhea, no pain, no constipation : No frequency, no urgency, no dysuria MUSC/SKEL: No joint pain, no back pain SKIN: No rash PSYCH: No hallucinations, no depression HEME/LYMPH: No easy bleeding or bruising tendencies NEURO: No weakness, no headache Past Medical History Past Medical History NEUROLOGIC: Positive Traumatic Brain Injury; Negative Neurological Disorders, Cerebrovascular Accident, Transient Ischemic Attacks (TIA), Dementia, Alzheimer's Disease, Parkinson's Disease, Brain Tumor, Meningitis, Seizures, Epilepsy, Multiple Sclerosis, Cerebral Palsy, Amyotrophic Lateral Sclerosis (ALS/Lilliam Gehrig's), Guillain-Hines Syndrome, Spina Bifida, Paralysis, Peripheral Neuropathy, Junior's Palsy, Subdural Hematoma, Migraine, Head Trauma or Spinal Cord Injury CARDIAC: Positive Cardiac Disorders, Myocardial Infarction, Hypercholesterolemia, Congestive Heart Failure, Edema, Deep Vein Thrombosis and Hypertension; Negative Cardiac Arrhythmia, Atrial Fibrillation, Angina, Heart Murmur, Coronary Artery Disease, Atherosclerotic Heart Disease, Peripheral Vascular Disease, Aneurysm, Congenital Heart Disease, Valvular Heart Disease, Rheumatic Fever, Cardiomyopathy, Pericarditis, Cellulitis, Hypotension or Varicose Veins RESPIRATORY: Positive Chronic Obstructive Pulmonary Disease (COPD), Asthma, Bronchitis and Pneumonia; Negative Emphysema, Pulmonary Fibrosis, Cystic Fibrosis, Tuberculosis, Pulmonary Embolism, Pulmonary Edema or Sleep Apnea GASTROINTESTINAL: Positive Gastrointestinal Disorders, Gastroesophageal Reflux Disease and Obesity; Negative Hepatitis, Cirrhosis, Pancreatitis, Celiac Disease, Gall Bladder Disease, Gastrointestinal Bleed, Esophageal Varices, Romero's Esophagus, Colitis, Ulcerative Colitis, Diverticulitis, Diverticulosis, Ulcer, Colorectal Cancer, Irritable Bowel, Crohn's Disease, Obstructive Bowel, Hiatal Hernia or Hemorrhoids GENITOURINARY: Positive Genitourinary Disorders and Renal Disease; Negative Kidney Stones, Polycystic Kidney Disease, Neurogenic Bladder, Inguinal Hernia, Dialysis or Benign Prostatic Hyperplasia REPRODUCTIVE: Positive Previous Pregnancies; Negative Breast Cancer, Endometriosis, Genital Herpes, Gonorrhea, Pelvic Inflammatory Disease, Syphilis or Uterine Prolapse MUSCULOSKELETAL: Positive Musculoskeletal Disorders and Arthritis; Negative Muscular Dystrophy, Myasthenia Gravis, Marfan's Syndrome, Bone Cancer, Rheumatoid Arthritis, Osteoporosis, Degenerative Disk Disease, Gout, Scoliosis, Carpal Tunnel Syndrome, Fibromyalgia, Fractures, Degenerative Joint Disease, Osteomyelitis or Poliovirus ENT: Negative Cataracts, Glaucoma, Blind, Retinal Detachment, Macular Degeneration, Ear Infection, Deafness, Head Trauma or Eye Prosthesis ENDOCRINE: Positive Endocrine Disorders and Diabetes Mellitus Type 2; Negative Diabetes Mellitus Type 1, Hypoglycemia, Daniel's Syndrome, Burton's Disease, Hyperthyroidism, Hypothyroidism, Parathyroid Disease, Pituitary Disease, Systemic Lupus Erythematosus, Syndrome of Inappropriate Antidiuretic Hormone (SIADH), Adrenal Disease or Graves' Disease HEMATOLOGIC: Negative Blood Disorders, Sickle Cell Disease or Clotting Problems PSYCHO/SOCIAL: Positive Anxiety; Negative Psychiatric Problems, Schizophrenia, Recreational Drug Use, Bipolar Disorder, Depression, Behavior Problems, Self-Mutilation, Attention Deficit Disorder, Attention Deficit Hyperactivity Disorder, Depression, Post Traumatic Stress Disorder or Eating Disorder OTHER HISTORY: Positive Hospitalization, Blood Transfusions (1 unit PRBC today 09/18), Chicken Pox, Measles and Mumps; Negative Autoimmune Disease, Down Syndrome, Autism, Developmental Delay, Shingles, Falls, Blood Transfusion Reaction, Anesthesia Reactions, Organ Transplant, Chemotherapy, Radiation Therapy, Hyperbaric Therapy, MRSA, VRSA, Vancomycin-Resistant Enterococci, Human Immunodeficiency Virus (HIV), Rubella (Nepali Measles), Pertussis, Clostridium Difficile, Cancer, Breast Cancer, Cervical Cancer, Colorectal Cancer, Lung Cancer or Ovarian Cancer Family History FAMILY HISTORY: Positive Family Respiratory Disorders, Family Cardiac Disorders and Family Cancer; Negative Family Psychiatric Problems, Family Gastrointestinal Problems, Family Surgery or Family Anesthesia Reaction Surgical History SURGICAL: Positive Angiogram, Abdominal Surgery, Joint Replacement and Hysterectomy; Negative Cardiac Surgery, Open Heart Surgery, Coronary Artery Bypass Graft, Valve Replacement, Vascular Surgery, Coronary Stent, Cardiac Catheterization, Pacemaker, Auto Implanted Cardiovert Defib, Carotid Endarterectomy, Endocrine Surgery, Thyroidectomy, Ear Surgery, Tympanostomy Tube, Eye Surgery, Nose Surgery, Oral Surgery, Tonsillectomy, Adenoidectomy, Cochlear Implant, Corneal Transplant, Throat Surgery, Tracheostomy, Gastric Bypass Surgery, Gastrostomy, Bowel Surgery, Nephrectomy, Amputation, Arthroscopy, Neurologic Surgery, Brain Shunt, Mastectomy, Lumpectomy, Tubal Ligation, Section or Organ Transplant Social History SMOKING STATUS: Never smoker SECOND HAND EXPOSURE: No SUBSTANCE USE: does not use ED Exam Narrative Physical exam: [General: Obese appears not in any acute distress Head normocephalic HEENT: Eyes pupils are PERRLA EOMs are intact, mouth dry pink membranes uvula is midline swallow symmetrical phonation is normal. All other subsystems of HEENT are within acceptable limits Neck is supple nontender Chest equal chest rise nontender to palpation Respiratory: Clear to auscultation no wheezes crackles or rubs CV: Rate rhythm is regular no murmurs rubs or clicks Abdomen is distended secondary to body habitus soft nontender no masses positive bowel sounds all 4 quadrants Back: No CVA tenderness no spinous process tenderness from cervical spine thoracic and lumbar spine Skin: Intact no petechiae rash induration ulceration or crepitus Extremities: Moving all extremity against resistance cap refill less than 2 seconds neurosensory intact Neuro: Awake alert oriented x3 Glascow coma 15 no focal deficits] Course Quality Measures none Orders Category Date Time Status Glucose [Bedside Blood Glucose] NOW Care 02/28/24 21:57 Active Glucose [Bedside Blood Glucose] Q1HR Care 02/28/24 22:06 Active Saline [Insert IV] NOW Care 02/28/24 21:56 Active Beta Hydroxybutyrate Stat Lab 02/28/24 22:00 Completed CBC Stat Lab 02/28/24 22:00 Completed CMP [Comprehensive Metabolic Panel] Stat Lab 02/28/24 22:00 Completed Lipase Stat Lab 02/28/24 22:00 Completed Insulin Regular Med 02/28/24 22:05 Discontinued 5 unit IV X1 ONE Sodium Chloride 0.9% 1000 ml [Ns] 1,000 ml Med 02/28/24 21:56 Discontinued IV 999 mls/hr Vital Signs Vital signs: Vital Signs Temperature 98.2 F 02/28/24 21:57 Pulse Rate 76 02/28/24 21:57 Respiratory Rate 16 02/28/24 21:57 Blood Pressure 197/98 H 02/28/24 21:57 Pulse Oximetry (%) 99 02/28/24 21:57 Oxygen Delivery Method Room Air 02/28/24 21:57 [facility] Patient data External records reviewed:: [facility] previous records Clinical information provided by:: patient Social determinants that could affect healthcare access:: none Patient has the following chronic illnesses:: Diabetes hyperlipidemia hypercholesterolemia CHF GERD CKD How is presenting disease/condition affected by chronic disease/condition?: exacerbated by Evaluation data The following diagnostics were reviewed and interpreted by me:: lab results and radiology exam(s) Lab and/or radiology exams considered but not ordered:: CBC shows no leukocytosis stable anemia of 9 and 28, no thrombocytopenia CMP shows blood glucose of slightly greater than 500, mild pseudohyponatremia, BUN and creatinine are elevated but stable from prior blood draws no transaminitis or T. bili elevation. Interpretation Summary: Hyperglycemia without DKA Medications Medications considered but not ordered:: None Medication administrations:: Medication Administration History Discontinued Medications Sodium Chloride (Ns) 1,000 mls @ 999 mls/hr IV .Q1H1M ONE Stop: 02/28/24 22:56 Last Admin: 02/28/24 22:02 Dose: 999 mls/hr Documented By: MARKIE Insulin Human Regular (Insulin Hum Regular 1 Unit/0.01 Ml (Per Unit)) 5 unit IV X1 ONE Stop: 02/28/24 22:06 Last Admin: 02/28/24 22:21 Dose: 5 unit Documented By: MARKIE Co-signed By: JAYMIE None Consultations Consultation(s) initiated? (list below): No Diagnosis Differential Diagnosis ED Complaint MDM: DKA hyperglycemia hypoglycemia Most likely diagnosis given after review of the tests above:: Hyperglycemia Admission Indicated Admission indicated?: not indicated Explain why admission is indicated or not indicated:: Stable for outpatient follow-up Admission Request Was there a request for admission?: No Disposition Plan Disposition Plan: Discharge Discharge Attestation Discharge Attestation: The patient and all family members were given an opportunity to ask questions and understood the discharge instructions. Discharge instructions specifically effects, indications for sooner follow up or return to the emergency department, and the expected course of current diagnosis. Patient condition: Stable Medical Decision Making Differential Diagnosis Differential Diagnosis: DKA hyperglycemia hypoglycemia Lab Data 02/28/24 22:00 02/28/24 22:00 Labs: Lab Results 02/28/24 Range/Units 22:00 WBC 10.7 (3.6-11.0) Thou/mm3 RBC 3.29 L (4.00-5.20) Miln/mm3 Hgb 9.9 L (12.0-16.0) g/dL Hct 28.6 L (36.0-46.0) % MCV 87 (80-100) fL MCH 30.1 (25.0-35.0) pg MCHC 34.6 (31.0-37.0) g/dl RDW Std Deviation 39.9 (36.4-46.3) fL Plt Count 230 D (140-440) Thou/mm3 Neut % (Auto) 60 (37-80) % Lymph % (Auto) 31 (10-50) % [place] % (Auto) 6 (0-12) % Eos % (Auto) 2 (0-10) % Baso % (Auto) 1 (0-2.5) % Neut # (Auto) 6.5 (1.8-7.7) Thou/mm3 Lymph # (Auto) 3.3 (1.0-4.8) Thou/mm3 [place] # (Auto) 0.6 (0.0-0.8) Thou/mm3 Eos # (Auto) 0.2 (0.0-0.5) Thou/mm3 Baso # (Auto) 0.1 (0.0-0.2) Thou/mm3 Immature Gran # (Auto) 0.07 H (0.00-0.00) Thou/mm3 Absolute Nucleated RBC 0.00 (0.00-0.00) Thou/mm3 Immature Gran % 1 H (0-0) % Nucleated RBC % 0 (0) /100 WBC Sodium 132 L (136-145) mMol/L Potassium 3.8 (3.4-5.1) mMol/L Chloride 99 (98-107) mMol/L Carbon Dioxide 22.4 (20.0-31.0) mMol/L Anion Gap 11 (7-16) BUN 48 H (9-23) mg/dL Creatinine 2.3 H (0.6-1.3) mg/dL Estim Creat Clear Calc 17.7 L (>60) mL/min eGFR 21 L (60 - ) See Note BUN/Creatinine Ratio 21 H (12-20) Ratio Glucose 507 H* (74-106) mg/dL Calculated Osmolality 300 H (275-295) Calcium 9.5 (8.3-10.6) mg/dL Corrected Calcium 9.5 (8.5-10.1) mg/dL Total Bilirubin 0.3 (0.3-1.2) mg/dL AST 11 (0-34) U/L ALT 15 (10-49) U/L Alkaline Phosphatase 198 H (46-116) U/L Total Protein 7.1 (5.7-8.2) gm/dL Albumin 4.2 (3.4-4.8) gm/dL Globulin 2.9 (2.3-3.5) gm/dL Albumin/Globulin Ratio 1.4 (1.2-2.2) Lipase 52 (12-53) U/L Beta-Hydroxybutyrate/Acetoacetate 0.0 (<0.6) mmol/L Discharge Plan Plan Patient Disposition: HOME (Self Care) Patient condition on transfer: Stable Prescriptions/Referrals Prescriptions/Med Rec: No Action loratadine 10 mg tablet 10 mg PO QDAY Patient Comments: TAKE 1 TABLET BY MOUTH EVERY DAY insulin degludec [Tresiba FlexTouch U-200] 200 unit/mL (3 mL) insulin pen 45 unit SUBCUT QDAY aspirin 81 mg Tablet,Delayed Release (Dr/Ec) 81 mg PO DAILY Hold Instructions: Resume on 09/29/23. Please hold until you see your PCP omeprazole 20 mg Capsule,Delayed Release(Dr/Ec) 20 mg PO QDAY amitriptyline 25 mg tablet 25 mg PO QDAY PRN (Reason: Anxiety) amlodipine 10 mg tablet 10 mg PO QDAY Qty: 30 0RF Hold Instructions: untill follow cardiology outpatient diltiazem HCl 240 mg Tablet Extended Release 24 Hr 240 mg PO QDAY Hold Instructions: Resume on 10/05/23. Please f/u with your PCP before resuming this medicine furosemide [Lasix] 40 mg tablet 40 mg PO QAM Qty: 30 0RF Hold Instructions: Resume on 09/28/23. Please f/u with your PCP before starting this medicine losartan 50 mg tablet 50 mg PO QDAY Qty: 30 1RF atorvastatin 20 mg tablet 20 mg PO HS benzonatate 100 mg capsule 100 mg PO TID Patient Comments: TAKE 1 CAPSULE BY MOUTH TWICE DAILY insulin aspart U-100 [Novolog FlexPen U-100 Insulin] 100 unit/mL (3 mL) insulin pen 6 unit SUBCUT TIDWM Patient Comments: INJECT 10 UNITS UNDER THE SKIN THREE TIMES DAILY WITH MEALS hydroxyzine pamoate 25 mg capsule 25 mg PO HS Qty: 30 0RF pentosan polysulfate sodium 100 mg capsule 100 mg PO TID Qty: 90 3RF Problem List Clinical Impression: Hyperglycemia due to diabetes mellitus Patient/Caregiver Discharge Instructions Education Materials: Diabetes and Kidney Disease Additional Instructions: Continue to monitor your blood sugar levels if there is a worsening of symptoms in spite of the medications return the emergency room medially for further evaluation. Print Language: Chadian Stand Alone Forms: Grace Award Info., Patient Portal Info Letter, Work/School Release PA/[employer]PER[employer] Supervising Physician PA/[employer] Supervising Physician: Kyler Carrero ENP
[2024-02-28 21:57] VITALS: BP 197/98; PULSE 76; RESP 16; TEMP 36.8; O2SAT 99
[2024-02-28] MEDS: SODIUM CHLORIDE 0.9% 1000 ML 1,000 ML 999 ML IV (22:02)
--- NOTE | 2024-02-28 22:05 | PC.NURSE ---
ASSUME CARE FOR THIS 83 YEAR FEMALE WHO WAS BIB EMS WITH CHIEF C/O OF HIGH BG AND HTN, PT REPORTS THAT SHE TOOK HER BG AT HOME AND HER MONITOR READ HIGH AND THAT SHE HAS BEEN THIRSTY. MILLIE COX AT BEDSIDE ASSESSING PT
[2024-02-28 22:10] VITALS: BMI 30.9
[2024-02-28 22:21] LABS: Basophils # (Auto) 0.1 Thou/mm3 (0.0-0.2); Basophils % (Auto) 1 % (0-2.5); Eosinophils # (Auto) 0.2 Thou/mm3 (0.0-0.5); Eosinophils % (Auto) 2 % (0-10); Hematocrit 28.6 % (36.0-46.0); Hemoglobin 9.9 g/dL (12.0-16.0); Immature Granulocytes % (Auto) 1 % (0-0); Immature Granulocytes Auto 0.07 Thou/mm3 (0.00-0.00); Lymphocytes # (Auto) 3.3 Thou/mm3 (1.0-4.8); Lymphocytes % (Auto) 31 % (10-50); Mean Corpuscular HGB Conc 34.6 g/dl (31.0-37.0); Mean Corpuscular Hemoglobin 30.1 pg (25.0-35.0); Mean Corpuscular Volume 87 fL (80-100); Monocytes # (Auto) 0.6 Thou/mm3 (0.0-0.8); Monocytes % (Auto) 6 % (0-12); Neutrophils # (Auto) 6.5 Thou/mm3 (1.8-7.7); Neutrophils % (Auto) 60 % (37-80); Nucleated Red Blood Cell % 0 /100 WBC (0); Platelet Count 230 Thou/mm3 (140-440); RDW Standard Deviation 39.9 fL (36.4-46.3); Red Blood Count 3.29 Miln/mm3 (4.00-5.20); White Blood Count 10.7 Thou/mm3 (3.6-11.0)
[2024-02-28] MEDS: INSULIN HUM REGULAR 1 UNIT/0.01 ML (PER UNIT) 5 UNIT IV (22:21)
[2024-02-28 22:50] LABS: Alanine Aminotransferase 15 U/L (10-49); Albumin, Serum 4.2 gm/dL (3.4-4.8); Albumin/Globulin Ratio 1.4 (1.2-2.2); Alkaline Phosphatase 198 U/L (46-116); Anion Gap 11 (7-16); Aspartate Amino Transferase 11 U/L (0-34); BUN/Creatinine Ratio 21 Ratio (12-20); Bilirubin,Total 0.3 mg/dL (0.3-1.2); Blood Urea Nitrogen 48 mg/dL (9-23); Calcium 9.5 mg/dL (8.3-10.6); Calcium (Corrected) 9.5 mg/dL (8.5-10.1); Carbon Dioxide 22.4 mMol/L (20.0-31.0); Chloride 99 mMol/L (98-107); Creatinine (Component) 2.3 mg/dL (0.6-1.3); Estimated Creatinine Clearance 17.7 mL/min (>60); Globulin 2.9 gm/dL (2.3-3.5); Lipase 52 U/L (12-53); Osmolality,Calculated 300 (275-295); Potassium 3.8 mMol/L (3.4-5.1); Sodium 132 mMol/L (136-145); Total Protein 7.1 gm/dL (5.7-8.2); eGFR 21 See Note
[2024-02-28 22:52] LABS: Glucose 507 mg/dL (74-106)
[2024-02-28 23:30] VITALS: BP 173/83; PULSE 70; RESP 16; TEMP 36.7; O2SAT 99
== END 2024-02-28 23:30 | disposition home or self-care (01) ==
LOC: SERX 23:42
PROVIDERS: Registered Nurse General Practice; Emergency Provider Emergency Medicine; PCP Physician Assistant
DX: E11.65 Type 2 diabetes mellitus with hyperglycemia (principal); Z79.4 Long term (current) use of insulin
CPT/HCPCS: 36415; 80053; 82010; 83690; 85025; 96360; 99284; J1815; J7030

== ENCOUNTER 2024-03-12 16:08 | Emergency (ER) | payer MEDICARE, MEDICAID, SELFPAY ==
[2024-03-12 16:09] VITALS: BP 211/96; PULSE 80; RESP 18; TEMP 36.7; O2SAT 97
--- NOTE | 2024-03-12 16:16 | PD.EDADULT ---
ED General RME/HPI General Chief complaint: General Adult/Misc Complain Stated complaint: HYPERGLYCEMIA Time Seen by Provider: 03/12/24 16:12 Arrival date/time: 03/12/24 16:08 RME / HPI RME / HPI narrative: AGUEDACIPRIANO HPI: This 83-year-old female with a history of insulin-dependent diabetes, dyslipidemia, hypertension, chronic renal insufficiency, anxiety, presents to the emergency department with complaints of anxiety/feeling scared for the last day, where then when she checked her blood pressure and her blood sugar this afternoon blood pressure was high and blood sugars were over 500 therefore she called EMS to bring to the emergency department. Patient denies pain, nausea, vomiting, or any physical symptoms. Related Data Home Medications ?Medication ?Instructions ?Recorded ?Confirmed loratadine 10 mg tablet 10 mg PO QDAY 04/22/21 08/03/23 aspirin 81 mg tablet,delayed 81 mg PO DAILY 06/20/21 08/03/23 release omeprazole 20 mg capsule,delayed 20 mg PO QDAY 06/20/21 08/03/23 release insulin degludec 200 unit/mL (3 45 unit subcut QDAY 08/12/21 08/03/23 mL) subcutaneous pen (Tresiba FlexTouch U-200 insulin) atorvastatin 20 mg tablet 20 mg PO HS 03/11/22 08/03/23 benzonatate 100 mg capsule 100 mg PO TID 03/11/22 08/03/23 insulin aspart U-100 100 unit/mL 6 unit subcut TIDWM 03/11/22 08/03/23 (3 mL) subcutaneous pen (Novolog FlexPen U-100 Insulin aspart) amitriptyline 25 mg tablet 25 mg PO QDAY PRN Anxiety 01/25/23 08/03/23 diltiazem HCl 240 mg 240 mg PO QDAY 05/19/23 08/03/23 tablet,extended release 24 hr Previous Rx's ?Medication ?Instructions ?Recorded amlodipine 10 mg tablet 10 mg PO QDAY #30 tabs 01/27/23 furosemide 40 mg tablet (Lasix) 40 mg PO QAM #30 tabs 05/25/23 losartan 50 mg tablet 50 mg PO QDAY #30 tabs 05/25/23 hydroxyzine pamoate 25 mg capsule 25 mg PO HS #30 caps 06/25/23 pentosan polysulfate sodium 100 mg 100 mg PO TID #90 caps 09/21/23 capsule Allergies Allergy/AdvReac Type Severity Reaction Status Date / Time amoxicillin Allergy Severe Vomiting Verified 01/26/24 16:16 codeine Allergy Severe PALPITATION Verified 01/26/24 16:16 S diazepam Allergy Severe RAPID Verified 01/26/24 16:16 HEARTRATE hydrocodone Allergy Severe Vomiting Verified 01/26/24 16:16 hydromorphone Allergy Severe Agitated Verified 01/26/24 16:16 ibuprofen Allergy Severe BLEEDING Verified 01/26/24 16:16 IN STOMACH PER PT meperidine Allergy Severe RAPID Verified 01/26/24 16:16 HEARTRATE morphine Allergy Severe RAPID Verified 01/26/24 16:16 HEARTRATE propoxyphene Allergy Severe RAPID Verified 01/26/24 16:16 HEARTRATE adhesive tape AdvReac Severe Hives Verified 01/26/24 16:16 levofloxacin AdvReac Severe VOMITS Verified 01/26/24 16:16 Review of Systems Review of Systems Systems Reviewed: All systems reviewed, normal except as documented ED Exam Narrative Physical exam: GENERAL APPEARANCE: AxOx4, generally well-appearing, no acute distress, moderately anxious, teary-eyed HEENT: NC, AT. MMM. EOMI, clear conjunctiva, oropharynx clear. NECK: Supple without lymphadenopathy. No stiffness or restricted ROM. HEART: Normal rate and regular rhythm, normal S1/S1, no m/r/g LUNGS: CTAB, moving air well. No crackles or wheezes are heard. ABDOMEN: Soft, nontender, nondistended with good bowel sounds heard. BACK: No midline C/T/L spine pain or deformity, No CVAT, no obvious deformity. EXTREMITIES: Without cyanosis, clubbing or edema. MUSCULOSKELETAL: FROM of all major joints, no chest tenderness NEUROLOGICAL: Grossly nonfocal. Alert and oriented, moving all 4 extremities. CN not formally tested but appear grossly intact. Observed to ambulate with normal gait. Skin: Warm and dry without any rash. Course Quality Measures none Orders Category Date Time Status Bedside Blood Glucose NOW Care 03/12/24 16:16 Completed Diltiazem [Cardizem] Med 03/12/24 17:43 Discontinued 30 mg PO X1 ONE DiphenhydrAMINE [Benadryl] Med 03/12/24 16:15 Discontinued 50 mg PO X1 ONE Vital Signs Vital signs: Vital Signs Temperature 98.1 F 03/12/24 16:09 Pulse Rate 80 03/12/24 16:09 Respiratory Rate 18 03/12/24 16:09 Blood Pressure 211/96 H 03/12/24 16:09 Pulse Oximetry (%) 97 03/12/24 16:09 Oxygen Delivery Method Room Air 03/12/24 16:09 SpO2 97% on room air, patient is not hypoxic MDM Patient data External records reviewed:: [facility] previous records Clinical information provided by:: patient Social determinants that could affect healthcare access:: none Patient has the following chronic illnesses:: Hypertension, dyslipidemia, insulin-dependent diabetes How is presenting disease/condition affected by chronic disease/condition?: caused by Evaluation data The following diagnostics were reviewed and interpreted by me:: other (specify) (Workup indicated) Lab and/or radiology exams considered but not ordered:: As per narrative Interpretation Summary: As per narrative Medications Medications considered but not ordered:: None Medication administrations:: Medication Administration History Discontinued Medications Diltiazem HCl (Diltiazem 30 Mg Tablet) 30 mg PO X1 ONE Stop: 03/12/24 17:44 Last Admin: 03/12/24 17:45 Dose: 30 mg Documented By: PORFIRIO Diphenhydramine HCl (Diphenhydramine 25 Mg Capsule) 50 mg PO X1 ONE Stop: 03/12/24 16:16 Last Admin: 03/12/24 17:13 Dose: Not Given Documented By: PORFIRIO Non-Admin Reason: Patient Refused Above Consultations Consultation(s) initiated? (list below): No Diagnosis Differential Diagnosis ED Complaint MDM: Anxiety, panic attack, hyperglycemia without ketosis, hypertension, noncomp Most likely diagnosis given after review of the tests above:: See below Admission Indicated Admission indicated?: not indicated Explain why admission is indicated or not indicated:: As per narrative Admission Request Was there a request for admission?: No Disposition Plan Disposition Plan: Discharge Discharge Attestation Discharge Attestation: The patient and all family members were given an opportunity to ask questions and understood the discharge instructions. Discharge instructions specifically effects, indications for sooner follow up or return to the emergency department, and the expected course of current diagnosis. Patient condition: Stable Medical Decision Making Differential Diagnosis Differential Diagnosis: Anxiety, panic attack, hyperglycemia without ketosis, hypertension, noncomp Discharge Plan Plan Patient Disposition: HOME (Self Care) Prescriptions/Referrals Prescriptions/Med Rec: No Action loratadine 10 mg tablet 10 mg PO QDAY Patient Comments: TAKE 1 TABLET BY MOUTH EVERY DAY insulin degludec [Tresiba FlexTouch U-200] 200 unit/mL (3 mL) insulin pen 45 unit SUBCUT QDAY aspirin 81 mg Tablet,Delayed Release (Dr/Ec) 81 mg PO DAILY Hold Instructions: Resume on 09/29/23. Please hold until you see your PCP omeprazole 20 mg Capsule,Delayed Release(Dr/Ec) 20 mg PO QDAY amitriptyline 25 mg tablet 25 mg PO QDAY PRN (Reason: Anxiety) amlodipine 10 mg tablet 10 mg PO QDAY Qty: 30 0RF Hold Instructions: untill follow cardiology outpatient diltiazem HCl 240 mg Tablet Extended Release 24 Hr 240 mg PO QDAY Hold Instructions: Resume on 10/05/23. Please f/u with your PCP before resuming this medicine furosemide [Lasix] 40 mg tablet 40 mg PO QAM Qty: 30 0RF Hold Instructions: Resume on 09/28/23. Please f/u with your PCP before starting this medicine losartan 50 mg tablet 50 mg PO QDAY Qty: 30 1RF atorvastatin 20 mg tablet 20 mg PO HS benzonatate 100 mg capsule 100 mg PO TID Patient Comments: TAKE 1 CAPSULE BY MOUTH TWICE DAILY insulin aspart U-100 [Novolog FlexPen U-100 Insulin] 100 unit/mL (3 mL) insulin pen 6 unit SUBCUT TIDWM Patient Comments: INJECT 10 UNITS UNDER THE SKIN THREE TIMES DAILY WITH MEALS hydroxyzine pamoate 25 mg capsule 25 mg PO HS Qty: 30 0RF pentosan polysulfate sodium 100 mg capsule 100 mg PO TID Qty: 90 3RF Referrals: Collin Herrera PA-C [Primary Care Provider] - In 1 week Problem List Clinical Impression: Hypertension, Hyperglycemia without ketosis, Anxiety Patient/Caregiver Discharge Instructions Education Materials: ED Diabetes with High Blood Sugar, ED High Blood Pressure ... Additional Instructions: You can continue normal home medicines. Follow-up with your primary care doctor in 2 to 3 days for recheck. You can return to the emergency department sooner if symptoms worsen or if he notes any new or concerning issues. Print Language: [place] Islander Stand Alone Forms: [facility] Award Info., Patient Portal Info Letter
[2024-03-12 16:55] VITALS: PULSE 78; RESP 20; O2SAT 97
[2024-03-12 17:01] VITALS: BMI 30.9
[2024-03-12 17:20] VITALS: BP 215/86; PULSE 83; RESP 15; TEMP 36.8; O2SAT 100
[2024-03-12 17:45] VITALS: BP 224/103; PULSE 75
[2024-03-12] MEDS: DILTIAZEM 30 MG TABLET PO (17:45)
[2024-03-12 17:56] VITALS: BP 177/71; PULSE 81; RESP 16; TEMP 36.7; O2SAT 99
== END 2024-03-12 18:18 | disposition home or self-care (01) ==
PROVIDERS: Emergency Provider Emergency Medicine; PCP Physician Assistant
DX: I12.9 Hypertensive chronic kidney disease with stage 1 through stage 4 chronic kidney disease, or unspecified chronic kidney disease (principal); E11.22 Type 2 diabetes mellitus with diabetic chronic kidney disease; E11.65 Type 2 diabetes mellitus with hyperglycemia; N18.9 Chronic kidney disease, unspecified; Z79.4 Long term (current) use of insulin
CPT/HCPCS: 99282; A9270

== ENCOUNTER → 2024-03-17 | Outpatient (CLI) | payer MEDICARE, MEDICAID, SELFPAY ==
[2024-03-17 11:35] LABS: Basophils # (Auto) 0.1 Thou/mm3 (0.0-0.2); Basophils % (Auto) 1 % (0-2.5); Eosinophils # (Auto) 0.2 Thou/mm3 (0.0-0.5); Eosinophils % (Auto) 2 % (0-10); Hematocrit 30.5 % (36.0-46.0); Hemoglobin 10.1 g/dL (12.0-16.0); Immature Granulocytes % (Auto) 1 % (0-0); Immature Granulocytes Auto 0.05 Thou/mm3 (0.00-0.00); Lymphocytes # (Auto) 2.9 Thou/mm3 (1.0-4.8); Lymphocytes % (Auto) 29 % (10-50); Mean Corpuscular HGB Conc 33.1 g/dl (31.0-37.0); Mean Corpuscular Hemoglobin 30.2 pg (25.0-35.0); Mean Corpuscular Volume 91 fL (80-100); Monocytes # (Auto) 0.5 Thou/mm3 (0.0-0.8); Monocytes % (Auto) 5 % (0-12); Neutrophils # (Auto) 6.3 Thou/mm3 (1.8-7.7); Neutrophils % (Auto) 64 % (37-80); Nucleated Red Blood Cell % 0 /100 WBC (0); Platelet Count 254 Thou/mm3 (140-440); RDW Standard Deviation 43.5 fL (36.4-46.3); Red Blood Count 3.34 Miln/mm3 (4.00-5.20); White Blood Count 9.9 Thou/mm3 (3.6-11.0)
[2024-03-17 11:43] LABS: B-Type Natriuretic Peptide 130 pg/mL (0-100)
[2024-03-17 12:20] LABS: Alanine Aminotransferase 14 U/L (10-49); Albumin, Serum 3.9 gm/dL (3.4-4.8); Albumin/Globulin Ratio 1.7 (1.2-2.2); Alkaline Phosphatase 154 U/L (46-116); Anion Gap 8 (7-16); Aspartate Amino Transferase 14 U/L (0-34); BUN/Creatinine Ratio 18 Ratio (12-20); Bilirubin,Total 0.3 mg/dL (0.3-1.2); Blood Urea Nitrogen 38 mg/dL (9-23); Calcium 9.1 mg/dL (8.3-10.6); Calcium (Corrected) 9.2 mg/dL (8.5-10.1); Carbon Dioxide 25.8 mMol/L (20.0-31.0); Chloride 107 mMol/L (98-107); Creatinine (Component) 2.1 mg/dL (0.6-1.3); Free T4 (Free Thyroxine) 1.07 ng/dL (0.89-1.76); Globulin 2.3 gm/dL (2.3-3.5); Glucose 188 mg/dL (74-106); Magnesium 2.1 mg/dL (1.6-2.6); Osmolality,Calculated 295 (275-295); Potassium 4.5 mMol/L (3.4-5.1); Sodium 141 mMol/L (136-145); Thyroid Stimulating Hormone 1.72 uIU/mL (0.55-4.78); Total Protein 6.2 gm/dL (5.7-8.2); eGFR 23 See Note
[2024-03-17 12:30] LABS: Glucose Estimated Average 214 mg/dL (80-131); Hemoglobin A1C 9.1 % Hgb (4.8-6.0)
== END | disposition home or self-care (01) ==
PROVIDERS: PCP Nurse Practitioner Family; Referring Provider Internal Medicine Cardiovascular Disease; Visit Provider Internal Medicine Cardiovascular Disease
DX: I12.9 Hypertensive chronic kidney disease with stage 1 through stage 4 chronic kidney disease, or unspecified chronic kidney disease (principal); N18.9 Chronic kidney disease, unspecified; I95.9 Hypotension, unspecified
CPT/HCPCS: 36415; 80053; 83036; 83735; 83880; 84439; 84443; 85025

== ENCOUNTER 2024-03-24 00:11 | Emergency (ER) | payer MEDICARE, MEDICAID, SELFPAY ==
[2024-03-24 00:19] VITALS: BP 226/93; PULSE 74; PULSE 78; RESP 18; TEMP 36.8; O2SAT 100; O2SAT 98
--- NOTE | 2024-03-24 00:19 | EKG_ITS ---
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
[2024-03-24 00:29] VITALS: BMI 28.3
--- NOTE | 2024-03-24 00:34 | PD.EDCHEST ---
ED Chest Pain RME/HPI General Chief Complaint: Chest Pain Stated Complaint: CHEST PAIN/ABD PAIN/SOB Time Seen by Provider: 03/24/24 00:13 Arrival date/time: 03/24/24 00:11 RME / HPI RME / HPI narrative: Dr. Mclean?s Main ED Evaluation: 83yo female with pmhx IDDM, HTN, HLD BIBA from home presents to the ED for a chief complaint of chest pain x 1999. Patient states she started having chest pain, abdominal pain, and diarrhea at 1999. She denies any nausea, vomiting, fever, chills, cough or any other associated symptoms. Denies any tobacco use. Patient states she is incontinent. Related Data Home Medications ?Medication ?Instructions ?Recorded ?Confirmed loratadine 10 mg tablet 10 mg PO QDAY 04/22/21 08/03/23 aspirin 81 mg tablet,delayed 81 mg PO DAILY 06/20/21 08/03/23 release omeprazole 20 mg capsule,delayed 20 mg PO QDAY 06/20/21 08/03/23 release insulin degludec 200 unit/mL (3 45 unit subcut QDAY 08/12/21 08/03/23 mL) subcutaneous pen (Tresiba FlexTouch U-200 insulin) atorvastatin 20 mg tablet 20 mg PO HS 03/11/22 08/03/23 benzonatate 100 mg capsule 100 mg PO TID 03/11/22 08/03/23 insulin aspart U-100 100 unit/mL 6 unit subcut TIDWM 03/11/22 08/03/23 (3 mL) subcutaneous pen (Novolog FlexPen U-100 Insulin aspart) amitriptyline 25 mg tablet 25 mg PO QDAY PRN Anxiety 01/25/23 08/03/23 diltiazem HCl 240 mg 240 mg PO QDAY 05/19/23 08/03/23 tablet,extended release 24 hr Previous Rx's ?Medication ?Instructions ?Recorded amlodipine 10 mg tablet 10 mg PO QDAY #30 tabs 01/27/23 furosemide 40 mg tablet (Lasix) 40 mg PO QAM #30 tabs 05/25/23 losartan 50 mg tablet 50 mg PO QDAY #30 tabs 05/25/23 hydroxyzine pamoate 25 mg capsule 25 mg PO HS #30 caps 06/25/23 pentosan polysulfate sodium 100 mg 100 mg PO TID #90 caps 09/21/23 capsule acetaminophen 500 mg tablet 1,000 mg (2 x 500 mg) PO Q6H PRN 03/24/24 fever or pain 5 days #40 tabs nitrofurantoin 100 mg PO BID Urinary tract 03/24/24 monohydrate/macrocrystals 100 mg infection 7 days #14 caps capsule (Macrobid) oseltamivir 75 mg capsule (Tamiflu) 75 mg PO BID 5 days #10 caps 03/24/24 Allergies Allergy/AdvReac Type Severity Reaction Status Date / Time amoxicillin Allergy Severe Vomiting Verified 01/26/24 16:16 codeine Allergy Severe PALPITATION Verified 01/26/24 16:16 S diazepam Allergy Severe RAPID Verified 01/26/24 16:16 HEARTRATE hydrocodone Allergy Severe Vomiting Verified 01/26/24 16:16 hydromorphone Allergy Severe Agitated Verified 01/26/24 16:16 ibuprofen Allergy Severe BLEEDING Verified 01/26/24 16:16 IN STOMACH PER PT meperidine Allergy Severe RAPID Verified 01/26/24 16:16 HEARTRATE morphine Allergy Severe RAPID Verified 01/26/24 16:16 HEARTRATE propoxyphene Allergy Severe RAPID Verified 01/26/24 16:16 HEARTRATE adhesive tape AdvReac Severe Hives Verified 01/26/24 16:16 levofloxacin AdvReac Severe VOMITS Verified 01/26/24 16:16 Review of Systems Review of Systems Systems Reviewed: All systems reviewed, normal except as documented ED Exam Narrative Physical exam: GENERAL APPEARANCE: alert and oriented x 4, well-developed, well-nourished, no acute distress VITALS: All vitals were reviewed and the pulse ox is 100% on room air, which is normal according to my interpretation. HEENT: Normocephalic, atraumatic; pupils equal, round, reactive to light; EOMI; mucous membranes pink, moist; oropharynx clear NECK: Supple LUNGS: CTABL; no wheezes, no rales, no rhonchi HEART: Regular rate, regular rhythm; normal S1, S2; no murmurs ABDOMEN: non distended; normal BS; soft, no tenderness, no guarding, no rebound; no masses, no organomegaly, no hernia BACK: no CVA tenderness EXTREMITIES: atraumatic; no edema NEUROLOGIC: awake; alert and oriented x4; cranial nerves II-XII grossly intact; no focal sensory or motor deficits PSYCHIATRIC: appropriate mood and affect SKIN: warm, dry, normal color; no rashes Course Course Course Narrative: CXR is ordered for determining the etiology of chest pain. Quality Measures none Orders Category Date Time Status Bedside Influenza A&B Antigen Test NOW Care 03/24/24 01:26 Completed Pest Control Pilot STAT Care 03/24/24 00:41 Active Continuous Pulse Oximetry ONCE Care 03/24/24 00:41 Completed EKG (ED ONLY) *Do not use* NOW Care 03/24/24 00:19 Completed Insert IV STAT Care 03/24/24 00:41 Active EKG (ED Only) Stat Exams 03/24/24 00:19 Draft XR chest 1V portable Stat Exams 03/24/24 00:41 Taken B-Type Natriuretic Peptide Stat Lab 03/24/24 00:45 Completed CBC Stat Lab 03/24/24 00:45 Completed Comprehensive Metabolic Panel Stat Lab 03/24/24 00:45 Completed Lipase Stat Lab 03/24/24 00:45 Completed Magnesium Stat Lab 03/24/24 00:45 Completed Partial Thromboplastin Time Stat Lab 03/24/24 00:45 Completed Prothrombin Time with INR Stat Lab 03/24/24 00:45 Completed Troponin I Stat Lab 03/24/24 00:45 Completed Urinalysis, C/S if Indicated Stat Lab 03/24/24 02:00 Completed Urine Culture Stat Lab 03/24/24 02:00 Received amLODIPine BESYLATE [Norvasc] Med 03/24/24 01:29 Discontinued 10 mg PO X1 ONE Vital Signs Vital signs: Vital Signs Temperature 98.2 F 03/24/24 00:19 Pulse Rate 74 03/24/24 00:19 Respiratory Rate 18 03/24/24 00:19 Blood Pressure 226/93 H 03/24/24 00:19 Pulse Oximetry (%) 100 03/24/24 00:19 Oxygen Delivery Method Room Air 03/24/24 00:19 Chest Pain MDM Narrative MDM Narrative:: Scribe Attestation: 03/24/24 Maria Eugenia Rolon am scribing for and in the presence of Dr. Mclean. Patient data External records reviewed:: [facility] previous records (Per chart review, patient was seen here on 03/12/24 for anxiety.) Clinical information provided by:: patient Social determinants that could affect healthcare access:: none Patient has the following chronic illnesses:: IDDM, HTN, HLD How is presenting disease/condition affected by chronic disease/condition?: uneffected by Evaluation data The following diagnostics were reviewed and interpreted by me:: lab results, radiology exam(s) and EKG tracing(s) Lab and/or radiology exams considered but not ordered:: none Interpretation Summary: Bedside Influenza A is positive, WBC count is elevated at 11.7, Creatinine is 2.0 which is chronic, Glucose is 244, Lipase is normal, troponin is normal, UA is positive for a UTI, according to my interpretation. CXR is rotated, and is normal cardiac silhouette, normal sharp diaphragmatic edge, no infiltrates, normal costophrenic angles, unchanged from prior examination, according to my interpretation. EKG done at 0051, NSR, rate of 77, normal axis, no ectopy, no signs of acute ischemia, according to my interpretation. Medications / Prescriptions Medications or Prescriptions considered but not ordered:: none Medication administrations:: Medication Administration History Discontinued Medications Amlodipine Besylate (Amlodipine Besylate 5 Mg Tablet) 10 mg PO X1 ONE Stop: 03/24/24 01:30 Last Admin: 03/24/24 01:54 Dose: 10 mg Documented By: EE see above, if any Consultations Consultation(s) initiated? (list below): No Diagnosis Chest Pain Differential Diagnosis: other (Influenza, viral syndrome, pneumonia, UTI) Most likely diagnosis given after review of the tests above:: Influenza A, UTI, urinary incontinence Admission Indicated Admission indicated?: not indicated Explain why admission is indicated or not indicated:: Admission criteria not met. Patient is stable for outpatient treatment. Admission Request Was there a request for admission?: No Disposition Plan Disposition Plan: Discharge Discharge Attestation Discharge Attestation: The patient and all family members were given an opportunity to ask questions and understood the discharge instructions. Discharge instructions specifically effects, indications for sooner follow up or return to the emergency department, and the expected course of current diagnosis. Patient condition: Stable Discharge Plan Plan Patient Disposition: HOME (Self Care) Disposition Comment: Stable for discharge Patient condition on transfer: Stable Prescriptions/Referrals Prescriptions/Med Rec: New oseltamivir [Tamiflu] 75 mg capsule 75 mg PO BID 5 Days Qty: 10 0RF nitrofurantoin monohyd/m-cryst [Macrobid] 100 mg capsule 100 mg PO BID 7 Days Qty: 14 0RF Rx Instructions: must administer with a meal/food acetaminophen 500 mg tablet 1,000 mg PO Q6H PRN (Reason: fever or pain) 5 Days Qty: 40 0RF No Action loratadine 10 mg tablet 10 mg PO QDAY Patient Comments: TAKE 1 TABLET BY MOUTH EVERY DAY insulin degludec [Tresiba FlexTouch U-200] 200 unit/mL (3 mL) insulin pen 45 unit SUBCUT QDAY aspirin 81 mg Tablet,Delayed Release (Dr/Ec) 81 mg PO DAILY Hold Instructions: Resume on 09/29/23. Please hold until you see your PCP omeprazole 20 mg Capsule,Delayed Release(Dr/Ec) 20 mg PO QDAY amitriptyline 25 mg tablet 25 mg PO QDAY PRN (Reason: Anxiety) amlodipine 10 mg tablet 10 mg PO QDAY Qty: 30 0RF Hold Instructions: untill follow cardiology outpatient diltiazem HCl 240 mg Tablet Extended Release 24 Hr 240 mg PO QDAY Hold Instructions: Resume on 10/05/23. Please f/u with your PCP before resuming this medicine furosemide [Lasix] 40 mg tablet 40 mg PO QAM Qty: 30 0RF Hold Instructions: Resume on 09/28/23. Please f/u with your PCP before starting this medicine losartan 50 mg tablet 50 mg PO QDAY Qty: 30 1RF atorvastatin 20 mg tablet 20 mg PO HS benzonatate 100 mg capsule 100 mg PO TID Patient Comments: TAKE 1 CAPSULE BY MOUTH TWICE DAILY insulin aspart U-100 [Novolog FlexPen U-100 Insulin] 100 unit/mL (3 mL) insulin pen 6 unit SUBCUT TIDWM Patient Comments: INJECT 10 UNITS UNDER THE SKIN THREE TIMES DAILY WITH MEALS hydroxyzine pamoate 25 mg capsule 25 mg PO HS Qty: 30 0RF pentosan polysulfate sodium 100 mg capsule 100 mg PO TID Qty: 90 3RF Referrals: [facility] [Outside] - In 1 week [facility] [Outside] - In 1 week Problem List Clinical Impression: Influenza A, Urinary tract infection, Urinary incontinence Patient/Caregiver Discharge Instructions Discharge Activity: activity as tolerated Education Materials: Pelvic Organ Prolapse ..., Urinary Tract Infections in Women, The Flu (Influenza), ED Influenza (Adult) Additional Instructions: You should talk to your doctor about whether having a pessary is a good idea for you. A pessary is?a non-surgical vaginal device used to treat a variety of gynecological conditions, including:?Pelvic organ prolapse, Stress urinary incontinence, Overactive bladder, and Uterine prolapse during .? Pessaries can also be used to deliver medications directly into the vagina.?A cervical cap, which is used to prevent , is also technically a type of pessary.? Pessaries are made of silicone, a soft material that is safe and protects against infection.?They are a safe long-term treatment, but they need to be changed every three to six months.?Some women can change their pessary at home, but others may need to visit a clinic or hospital.? When choosing a pessary, the type that is best for each patient depends on the condition being treated.?There are many different styles of pessaries, including therapeutic pessaries, pharmaceutical pessaries, and occlusive pessaries. I called in several prescriptions that are waiting for you at your pharmacy. One of the medicines is called Tamiflu. This is for influenza. You should take 1 tab twice a day for 5 days. Another of the medications is called acetaminophen which is also called Tylenol. You should take 2 tabs every 6 hours for pain and/or fevers Print Language: Croatian Stand Alone Forms: [facility] Award Info., Patient Portal Info Letter
--- NOTE | 2024-03-24 00:41 | XR_ITS ---
Examination: AP chest single view TECHNIQUE: AP portable semiupright chest single view Exam date and time: April 24, 2024 at 0115 hours Comparison August 03, 2023 INDICATIONS: Onset chest pain today. FINDINGS: Normal heart size No lobar pneumonia or pulmonary edema Prominent osteopenia IMPRESSION: No lobar pneumonia or pulmonary edema
[2024-03-24 00:43] VITALS: PULSE 73
--- NOTE | 2024-03-24 00:55 | PC.NURSE ---
Pt's brief changed. Araceli-care provided.
[2024-03-24 01:12] LABS: B-Type Natriuretic Peptide 144 pg/mL (0-100)
[2024-03-24 01:13] LABS: Partial Thromboplastin Time 30.5 Seconds (22.0-36.0); Prothrombin Time 10.7 Seconds (9.0-12.2)
[2024-03-24 01:15] LABS: Basophils # (Auto) 0.1 Thou/mm3 (0.0-0.2); Basophils % (Auto) 1 % (0-2.5); Eosinophils # (Auto) 0.2 Thou/mm3 (0.0-0.5); Eosinophils % (Auto) 2 % (0-10); Hematocrit 28.8 % (36.0-46.0); Hemoglobin 9.7 g/dL (12.0-16.0); Immature Granulocytes % (Auto) 1 % (0-0); Immature Granulocytes Auto 0.08 Thou/mm3 (0.00-0.00); Lymphocytes # (Auto) 2.8 Thou/mm3 (1.0-4.8); Lymphocytes % (Auto) 24 % (10-50); Mean Corpuscular HGB Conc 33.7 g/dl (31.0-37.0); Mean Corpuscular Hemoglobin 30.1 pg (25.0-35.0); Mean Corpuscular Volume 89 fL (80-100); Monocytes # (Auto) 0.6 Thou/mm3 (0.0-0.8); Monocytes % (Auto) 5 % (0-12); Neutrophils # (Auto) 7.9 Thou/mm3 (1.8-7.7); Neutrophils % (Auto) 68 % (37-80); Nucleated Red Blood Cell % 0 /100 WBC (0); Platelet Count 223 Thou/mm3 (140-440); RDW Standard Deviation 41.9 fL (36.4-46.3); Red Blood Count 3.22 Miln/mm3 (4.00-5.20); White Blood Count 11.7 Thou/mm3 (3.6-11.0)
--- NOTE | 2024-03-24 01:15 | PC.NURSE ---
XRAY at the bedside
[2024-03-24 01:16] LABS: Alanine Aminotransferase 20 U/L (10-49); Albumin/Globulin Ratio 1.5 (1.2-2.2); Alkaline Phosphatase 218 U/L (46-116); Anion Gap 7 (7-16); Aspartate Amino Transferase 22 U/L (0-34); BUN/Creatinine Ratio 19 Ratio (12-20); Bilirubin,Total 0.2 mg/dL (0.3-1.2); Blood Urea Nitrogen 37 mg/dL (9-23); Carbon Dioxide 27.5 mMol/L (20.0-31.0); Chloride 104 mMol/L (98-107); Estimated Creatinine Clearance 21.1 mL/min (>60); Globulin 2.7 gm/dL (2.3-3.5); Glucose 244 mg/dL (74-106); Lipase 40 U/L (12-53); Magnesium 2.1 mg/dL (1.6-2.6); Osmolality,Calculated 292 (275-295); Sodium 138 mMol/L (136-145); Total Protein 6.7 gm/dL (5.7-8.2); Troponin I < 0.020 ng/mL (0.0-0.045); eGFR 25 See Note
[2024-03-24 01:54] VITALS: BP 204/83; PULSE 78
[2024-03-24] MEDS: amLODIPine BESYLATE 5 MG TABLET 10 MG PO (01:54)
[2024-03-24 02:04] VITALS: BP 202/69; PULSE 75; RESP 17; O2SAT 99
[2024-03-24 02:23] LABS: Collection Type, Urine Clean Catch
[2024-03-24 02:42] LABS: Bilirubin,Urine Negative (Negative); Blood,Urine Negative (Negative); Clarity,Urine Clear (Clear/Hazy); Color,Urine Colorless (Lt Yel-Yel); Glucose, Urine 2+ (Negative); Ketones,Urine Negative (Negative); Leukocyte Esterase,Urine Positive (Negative); Nitrite,Urine Negative (Negative); PH,Urine 6.5 (5.0-7.0); Protein,Urine 2+ (Neg - Trace); RBC,Urine 7 /hpf (0-3); Specific Gravity,Urine 1.006 (1.001-1.035); Squamous Epithelial Cell,Urine 2 /hpf (0-5); Urobilinogen,Urine Negative mg/dL (0.0-1.0); WBC,Urine 40 /hpf (0-5)
[2024-03-24 02:45] VITALS: BP 193/114; PULSE 72; RESP 20; O2SAT 100
[2024-03-24 02:46] LABS: Culture Indicated,Urine Yes
[2024-03-24 03:43] VITALS: BP 192/82; PULSE 71; RESP 18; O2SAT 98
== END 2024-03-24 03:42 | disposition home or self-care (01) ==
PROVIDERS: Emergency Provider Emergency Medicine; PCP Physician Assistant
DX: J10.1 Influenza due to other identified influenza virus with other respiratory manifestations (principal); N39.0 Urinary tract infection, site not specified; R32 Unspecified urinary incontinence; R94.31 Abnormal electrocardiogram [ECG] [EKG]; I10 Essential (primary) hypertension
CPT/HCPCS: 36415; 71045; 80053; 81001; 83690; 83735; 83880; 84484; 85025; 85610; 85730; 87086; 87400; 93005; 99283; A9270

== ENCOUNTER 2024-04-11 15:06 | Emergency (ER) | payer MEDICARE, MEDICAID, SELFPAY ==
[2024-04-11 15:38] VITALS: BP 209/89; PULSE 78; RESP 18; TEMP 36.8; O2SAT 98; BMI 30.9
--- NOTE | 2024-04-11 15:42 | EKG_ITS ---
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
[2024-04-11 16:08] LABS: Basophils # (Auto) 0.1 Thou/mm3 (0.0-0.2); Basophils % (Auto) 1 % (0-2.5); Eosinophils # (Auto) 0.1 Thou/mm3 (0.0-0.5); Eosinophils % (Auto) 1 % (0-10); Hematocrit 31.9 % (36.0-46.0); Hemoglobin 10.8 g/dL (12.0-16.0); Immature Granulocytes % (Auto) 1 % (0-0); Immature Granulocytes Auto 0.09 Thou/mm3 (0.00-0.00); Lymphocytes # (Auto) 3.7 Thou/mm3 (1.0-4.8); Lymphocytes % (Auto) 29 % (10-50); Mean Corpuscular HGB Conc 33.9 g/dl (31.0-37.0); Mean Corpuscular Hemoglobin 30.3 pg (25.0-35.0); Mean Corpuscular Volume 90 fL (80-100); Monocytes # (Auto) 0.8 Thou/mm3 (0.0-0.8); Monocytes % (Auto) 6 % (0-12); Neutrophils # (Auto) 7.9 Thou/mm3 (1.8-7.7); Neutrophils % (Auto) 62 % (37-80); Nucleated Red Blood Cell % 0 /100 WBC (0); Platelet Count 265 Thou/mm3 (140-440); RDW Standard Deviation 41.9 fL (36.4-46.3); Red Blood Count 3.56 Miln/mm3 (4.00-5.20); White Blood Count 12.7 Thou/mm3 (3.6-11.0)
[2024-04-11 16:30] LABS: Alanine Aminotransferase 14 U/L (10-49); Albumin, Serum 4.2 gm/dL (3.4-4.8); Albumin/Globulin Ratio 1.6 (1.2-2.2); Alkaline Phosphatase 204 U/L (46-116); Anion Gap 8 (7-16); Aspartate Amino Transferase 10 U/L (0-34); BUN/Creatinine Ratio 23 Ratio (12-20); Bilirubin,Total 0.2 mg/dL (0.3-1.2); Blood Urea Nitrogen 52 mg/dL (9-23); Calcium 9.2 mg/dL (8.3-10.6); Calcium (Corrected) 9.2 mg/dL (8.5-10.1); Carbon Dioxide 25.3 mMol/L (20.0-31.0); Chloride 101 mMol/L (98-107); Creatinine (Component) 2.3 mg/dL (0.6-1.3); Estimated Creatinine Clearance 17.7 mL/min (>60); Globulin 2.7 gm/dL (2.3-3.5); Glucose 203 mg/dL (74-106); Lipase 48 U/L (12-53); Osmolality,Calculated 288 (275-295); Potassium 3.9 mMol/L (3.4-5.1); Sodium 134 mMol/L (136-145); Total Protein 6.9 gm/dL (5.7-8.2); Troponin I < 0.020 ng/mL (0.0-0.045); eGFR 21 See Note
--- NOTE | 2024-04-11 16:43 | PD.EDADULT ---
ED General RME/HPI General Chief complaint: Abdominal Pain Stated complaint: ABDOMINAL PAIN, N/V, HTN, SICK ALL MORNING Time Seen by Provider: 04/11/24 15:26 Arrival date/time: 04/11/24 15:06 CC: Abdominal pain Related Data Home Medications ?Medication ?Instructions ?Recorded ?Confirmed loratadine 10 mg tablet 10 mg PO QDAY 04/22/21 04/27/24 omeprazole 20 mg capsule,delayed 20 mg PO QDAY 06/20/21 04/27/24 release insulin degludec 200 unit/mL (3 45 unit subcut QDAY 08/12/21 04/27/24 mL) subcutaneous pen (Tresiba FlexTouch U-200 insulin) atorvastatin 20 mg tablet 20 mg PO HS 03/11/22 04/27/24 benzonatate 100 mg capsule 100 mg PO TID 03/11/22 04/27/24 insulin aspart U-100 100 unit/mL 6 unit subcut TIDWM 03/11/22 04/27/24 (3 mL) subcutaneous pen (Novolog FlexPen U-100 Insulin aspart) amitriptyline 25 mg tablet 25 mg PO QDAY PRN Anxiety 01/25/23 04/27/24 diltiazem HCl 240 mg 240 mg PO QDAY 05/19/23 04/27/24 tablet,extended release 24 hr carvedilol 6.25 mg tablet 6.25 mg PO Q12H 04/27/24 04/27/24 losartan 100 mg tablet 100 mg PO DAILY for BP 04/27/24 04/27/24 sertraline 25 mg tablet 25 mg PO HS 04/28/24 04/28/24 Previous Rx's ?Medication ?Instructions ?Recorded amlodipine 10 mg tablet 10 mg PO QDAY #30 tabs 01/27/23 furosemide 40 mg tablet (Lasix) 40 mg PO QAM #30 tabs 05/25/23 losartan 50 mg tablet 50 mg PO QDAY #30 tabs 05/25/23 hydroxyzine pamoate 25 mg capsule 25 mg PO HS #30 caps 06/25/23 pentosan polysulfate sodium 100 mg 100 mg PO TID #90 caps 09/21/23 capsule clonidine HCl 0.1 mg tablet 0.1 mg PO BID #60 tabs 04/12/24 Held on 04/27/24. Instructions: Not taking nitrofurantoin 100 mg PO Q12H 7 days #14 caps 04/26/24 monohydrate/macrocrystals 100 mg capsule (Macrobid) clonidine HCl 0.1 mg tablet 0.1 mg PO BID #60 tabs 04/29/24 nitrofurantoin 100 mg PO BID 7 days #14 caps 04/30/24 monohydrate/macrocrystals 100 mg capsule (Macrobid) Allergies Allergy/AdvReac Type Severity Reaction Status Date / Time amoxicillin Allergy Severe Vomiting Verified 04/29/24 18:59 codeine Allergy Severe PALPITATION Verified 04/29/24 18:59 S diazepam Allergy Severe RAPID Verified 04/29/24 18:59 HEARTRATE hydrocodone Allergy Severe Vomiting Verified 04/29/24 18:59 hydromorphone Allergy Severe Agitated Verified 04/29/24 18:59 ibuprofen Allergy Severe BLEEDING Verified 04/29/24 18:59 IN STOMACH PER PT meperidine Allergy Severe RAPID Verified 04/29/24 18:59 HEARTRATE morphine Allergy Severe RAPID Verified 04/29/24 18:59 HEARTRATE propoxyphene Allergy Severe RAPID Verified 04/29/24 18:59 HEARTRATE adhesive tape AdvReac Severe Hives Verified 04/29/24 18:59 levofloxacin AdvReac Severe VOMITS Verified 04/29/24 18:59 Review of Systems Review of Systems Narrative Review of Systems: GEN: No fever, no chills, no weight loss EYES: No discharge, no visual changes, no pain HEENT: No ear pain, no congestion, no sore throat PULM: No shortness of breath, no cough, no congestion CV: No chest pain, no dyspnea on exertion, no palpitations GI: No nausea, no vomiting, no diarrhea, + pain, no constipation : No frequency, no urgency, no dysuria MUSC/SKEL: No joint pain, no back pain SKIN: No rash PSYCH: No hallucinations, no depression HEME/LYMPH: No easy bleeding or bruising tendencies NEURO: No weakness, no headache ED Exam Narrative Physical exam: [General: Obese not in cot no acute distress Head normocephalic HEENT: Within acceptable limits Neck is supple nontender Chest equal chest rise nontender to palpation Respiratory: Clear to auscultation no wheezes crackles or rubs CV: Rate rhythm is regular no murmurs rubs or clicks Abdomen is distended secondary to body habitus soft nontender no masses positive bowel sounds all 4 quadrants Back: No CVA tenderness no spinous process tenderness from cervical spine thoracic and lumbar spine Skin: Intact no petechiae rash induration ulceration or crepitus Extremities: Moving all extremity against resistance cap refill less than 2 seconds neurosensory intact Neuro: Awake alert oriented x3 Glascow coma 15 no focal deficits] Course Quality Measures VTE prophylaxis Orders Category Date Time Status CT Screening NOW Care 04/11/24 15:42 Completed EKG (ED ONLY) *Do not use* NOW Care 04/11/24 15:42 Completed EKG (ED Only) Stat Exams 04/11/24 15:42 Draft CBC Stat Lab 04/11/24 15:56 Completed CMP [Comprehensive Metabolic Panel] Stat Lab 04/11/24 15:56 Completed Lipase Stat Lab 04/11/24 15:56 Completed Troponin I Stat Lab 04/11/24 15:56 Completed Urinalysis Stat Lab 04/11/24 17:50 Completed Acetaminophen Tab [Tylenol ES Tab] Med 04/11/24 15:42 Discontinued 1,000 mg PO X1 ONE Ondansetron Odt [Zofran Odt] Med 04/11/24 15:56 Discontinued 4 mg PO X1 ONE mg Hyd/Al Hyd/Arya Susp [Maalox Susp] Med 04/11/24 15:42 Discontinued 30 ml PO X1 ONE Vital Signs Vital signs: Vital Signs Temperature 98.3 F 04/11/24 15:38 Pulse Rate 78 04/11/24 15:38 Respiratory Rate 18 04/11/24 15:38 Blood Pressure 209/89 H 04/11/24 15:38 Pulse Oximetry (%) 98 04/11/24 15:38 Oxygen Delivery Method Room Air 04/11/24 15:38 [facility] Patient data External records reviewed:: [facility] previous records Clinical information provided by:: patient and family Social determinants that could affect healthcare access:: none Patient has the following chronic illnesses:: Hypertension diabetes CKD stage IV CAD CHF COPD recurrent urinary tract infections chronic anemia polyosteoarthritis and anxiety attacks. How is presenting disease/condition affected by chronic disease/condition?: caused by Evaluation data The following diagnostics were reviewed and interpreted by me:: other (specify) Lab and/or radiology exams considered but not ordered:: See MDM Interpretation Summary: Eloped Medications Medications considered but not ordered:: Eloped Medication administrations:: Medication Administration History Discontinued Medications Acetaminophen (Acetaminophen 500 Mg Tablet) 1,000 mg PO X1 ONE Stop: 04/11/24 15:43 Last Admin: 04/11/24 17:01 Dose: 1,000 mg Documented By: EO Al Hydrox/Mg Hydrox/Simethicone (Mg Hyd/Al Hyd/Arya (Maalox Reg) Susp 30 Ml Udc) 30 ml PO X1 ONE Stop: 04/11/24 15:43 Last Admin: 04/11/24 17:02 Dose: 30 ml Documented By: EO Ondansetron HCl (Ondansetron Odt 4 Mg Tabrap) 4 mg PO X1 ONE; Protocol Stop: 04/11/24 15:57 Last Admin: 04/11/24 17:02 Dose: 4 mg Documented By: EO Eloped Consultations Consultation(s) initiated? (list below): No Diagnosis Differential Diagnosis ED Complaint MDM: Eloped Most likely diagnosis given after review of the tests above:: Eloped Admission Indicated Admission indicated?: not indicated Explain why admission is indicated or not indicated:: Eloped Admission Request Was there a request for admission?: No Disposition Plan Disposition Plan: Discharge Discharge Attestation Discharge Attestation: The patient and all family members were given an opportunity to ask questions and understood the discharge instructions. Discharge instructions specifically effects, indications for sooner follow up or return to the emergency department, and the expected course of current diagnosis. Patient condition: Stable Medical Decision Making Differential Diagnosis Differential Diagnosis: Eloped Lab Data 04/11/24 15:56 04/11/24 15:56 Labs: Lab Results 04/11/24 04/11/24 Range/Units 15:56 17:50 WBC 12.7 H (3.6-11.0) Thou/mm3 RBC 3.56 L (4.00-5.20) Miln/mm3 Hgb 10.8 L (12.0-16.0) g/dL Hct 31.9 L (36.0-46.0) % MCV 90 (80-100) fL MCH 30.3 (25.0-35.0) pg MCHC 33.9 (31.0-37.0) g/dl RDW Std Deviation 41.9 (36.4-46.3) fL Plt Count 265 D (140-440) Thou/mm3 Neut % (Auto) 62 (37-80) % Lymph % (Auto) 29 (10-50) % [place] % (Auto) 6 (0-12) % Eos % (Auto) 1 (0-10) % Baso % (Auto) 1 (0-2.5) % Neut # (Auto) 7.9 H (1.8-7.7) Thou/mm3 Lymph # (Auto) 3.7 (1.0-4.8) Thou/mm3 [place] # (Auto) 0.8 (0.0-0.8) Thou/mm3 Eos # (Auto) 0.1 (0.0-0.5) Thou/mm3 Baso # (Auto) 0.1 (0.0-0.2) Thou/mm3 Immature Gran # (Auto) 0.09 H (0.00-0.00) Thou/mm3 Absolute Nucleated RBC 0.00 (0.00-0.00) Thou/mm3 Immature Gran % 1 H (0-0) % Nucleated RBC % 0 (0) /100 WBC Sodium 134 L (136-145) mMol/L Potassium 3.9 (3.4-5.1) mMol/L Chloride 101 (98-107) mMol/L Carbon Dioxide 25.3 (20.0-31.0) mMol/L Anion Gap 8 (7-16) BUN 52 H (9-23) mg/dL Creatinine 2.3 H (0.6-1.3) mg/dL Estim Creat Clear Calc 17.7 L (>60) mL/min eGFR 21 L (60 - ) See Note BUN/Creatinine Ratio 23 H (12-20) Ratio Glucose 203 H (74-106) mg/dL Calculated Osmolality 288 (275-295) Calcium 9.2 (8.3-10.6) mg/dL Corrected Calcium 9.2 (8.5-10.1) mg/dL Total Bilirubin 0.2 L (0.3-1.2) mg/dL AST 10 (0-34) U/L ALT 14 (10-49) U/L Alkaline Phosphatase 204 H (46-116) U/L Troponin I < 0.020 (0.0-0.045) ng/mL Total Protein 6.9 (5.7-8.2) gm/dL Albumin 4.2 (3.4-4.8) gm/dL Globulin 2.7 (2.3-3.5) gm/dL Albumin/Globulin Ratio 1.6 (1.2-2.2) Lipase 48 (12-53) U/L Ur Collection Type Clean Catch Urine Color Lt-Yellow (Lt Yel-Yel) Urine Clarity Turbid A (Clear/Hazy) Urine pH 6.5 (5.0-7.0) Ur Specific [place] 1.008 (1.001-1.035) Urine Protein 3+ A (Neg - Trace) Urine Glucose (UA) 1+ A (Negative) Urine Ketones Negative (Negative) Urine Blood Negative (Negative) Urine Nitrite Negative (Negative) Urine Bilirubin Negative (Negative) Urine Urobilinogen (Auto) Negative (0.0-1.0) mg/dL Ur Leukocyte Esterase Positive (Negative) Urine RBC 2 (0-3) /hpf Urine WBC 17 H (0-5) /hpf Ur Squamous Epith Cells 1 (0-5) /hpf Urine Bacteria Rare (None) Discharge Plan Plan Patient Disposition: Elopement Prescriptions/Referrals Prescriptions/Med Rec: No Action loratadine 10 mg tablet 10 mg PO QDAY Patient Comments: TAKE 1 TABLET BY MOUTH EVERY DAY insulin degludec [Tresiba FlexTouch U-200] 200 unit/mL (3 mL) insulin pen 45 unit SUBCUT QDAY omeprazole 20 mg Capsule,Delayed Release(Dr/Ec) 20 mg PO QDAY amitriptyline 25 mg tablet 25 mg PO QDAY PRN (Reason: Anxiety) amlodipine 10 mg tablet 10 mg PO QDAY Qty: 30 0RF diltiazem HCl 240 mg Tablet Extended Release 24 Hr 240 mg PO QDAY furosemide [Lasix] 40 mg tablet 40 mg PO QAM Qty: 30 0RF losartan 50 mg tablet 50 mg PO QDAY Qty: 30 1RF nitrofurantoin monohyd/m-cryst [Macrobid] 100 mg capsule 100 mg PO Q12H 7 Days Qty: 14 0RF Rx Instructions: must administer with a meal/food losartan 100 mg tablet 100 mg PO DAILY Patient Comments: TAKE 1 TABLET BY MOUTH EVERY DAY carvedilol 6.25 mg tablet 6.25 mg PO Q12H sertraline 25 mg tablet 25 mg PO HS Patient Comments: TAKE 1 TABLET BY MOUTH AT BEDTIME clonidine HCl 0.1 mg tablet 0.1 mg PO BID Qty: 60 0RF nitrofurantoin monohyd/m-cryst [Macrobid] 100 mg capsule 100 mg PO BID 7 Days Qty: 14 0RF Rx Instructions: must administer with a meal/food atorvastatin 20 mg tablet 20 mg PO HS benzonatate 100 mg capsule 100 mg PO TID Patient Comments: TAKE 1 CAPSULE BY MOUTH TWICE DAILY insulin aspart U-100 [Novolog FlexPen U-100 Insulin] 100 unit/mL (3 mL) insulin pen 6 unit SUBCUT TIDWM Patient Comments: INJECT 10 UNITS UNDER THE SKIN THREE TIMES DAILY WITH MEALS hydroxyzine pamoate 25 mg capsule 25 mg PO HS Qty: 30 0RF pentosan polysulfate sodium 100 mg capsule 100 mg PO TID Qty: 90 3RF clonidine HCl 0.1 mg tablet 0.1 mg PO BID Qty: 60 1RF Problem List Clinical Impression: Abdominal pain Patient/Caregiver Discharge Instructions Print Language: Tongan PA/PERFORMANCE CONSULTANT Supervising Physician PA/PERFORMANCE CONSULTANT Supervising Physician: Kyler Carrero ENP
[2024-04-11] MEDS: ACETAMINOPHEN 500 MG TABLET 1000 MG PO (17:01)
[2024-04-11] MEDS: MG HYD/AL HYD/SIME (Maalox Reg) SUSP 30 ML UDC PO (17:02)
[2024-04-11] MEDS: ONDANSETRON ODT 4 MG TABRAP PO (17:02)
[2024-04-11 18:00] LABS: Collection Type, Urine Clean Catch
[2024-04-11 18:22] LABS: Bacteria,Urine Rare; Bilirubin,Urine Negative (Negative); Blood,Urine Negative (Negative); Clarity,Urine Turbid (Clear/Hazy); Color,Urine Lt-Yellow (Lt Yel-Yel); Glucose, Urine 1+ (Negative); Ketones,Urine Negative (Negative); Leukocyte Esterase,Urine Positive (Negative); Nitrite,Urine Negative (Negative); PH,Urine 6.5 (5.0-7.0); Protein,Urine 3+ (Neg - Trace); RBC,Urine 2 /hpf (0-3); Specific Gravity,Urine 1.008 (1.001-1.035); Squamous Epithelial Cell,Urine 1 /hpf (0-5); Urobilinogen,Urine Negative mg/dL (0.0-1.0); WBC,Urine 17 /hpf (0-5)
== END 2024-04-11 18:23 | disposition left against medical advice (07) ==
PROVIDERS: Physician Assistant; Emergency Provider Emergency Medicine
DX: R10.9 Unspecified abdominal pain (principal); R94.31 Abnormal electrocardiogram [ECG] [EKG]; R11.2 Nausea with vomiting, unspecified; I13.0 Hypertensive heart and chronic kidney disease with heart failure and stage 1 through stage 4 chronic kidney disease, or unspecified chronic kidney disease; E11.22 Type 2 diabetes mellitus with diabetic chronic kidney disease; N18.4 Chronic kidney disease, stage 4 (severe); I50.9 Heart failure, unspecified; Z79.4 Long term (current) use of insulin
CPT/HCPCS: 36415; 80053; 81001; 83690; 84484; 85025; 93005; 99281; Q0162; A9270

== ENCOUNTER 2024-04-12 04:06 | Emergency (ER) | payer MEDICARE, MEDICAID, SELFPAY ==
[2024-04-12] VITALS (9 sets, daily range): BP systolic 120–202; BP diastolic 55–119; PULSE 64–94; RESP 14–18; TEMP 36.5–36.7; O2SAT 91–98; BMI 40.8
--- NOTE | 2024-04-12 05:00 | PD.EDSYNC ---
ED Syncope RME/HPI General Chief Complaint: Syncope / Near Syncope Stated Complaint: NEAR SYNCOPE, HYPERTENSION Time Seen by Provider: 04/12/24 04:11 Arrival date/time: 04/12/24 04:06 RME / HPI RME / HPI narrative: Dr. Mclean?s Main ED Evaluation: 83yo female with pmhx IDDM, HTN, HLD BIBA from home presents to the ED for a chief complaint of near syncope. Patient states she woke up having generalized abdominal pain, reporting she was scared to go back to sleep because I felt like I was going to pass out . She denies any falls or injuries. She denies any fever, chills, N/V/D, constipation or any other associated symptoms. Related Data Home Medications ?Medication ?Instructions ?Recorded ?Confirmed loratadine 10 mg tablet 10 mg PO QDAY 04/22/21 08/03/23 aspirin 81 mg tablet,delayed 81 mg PO DAILY 06/20/21 08/03/23 release Held on 09/22/23. Instructions: Resume on 09/29/23. Please hold until you see your PCP omeprazole 20 mg capsule,delayed 20 mg PO QDAY 06/20/21 08/03/23 release insulin degludec 200 unit/mL (3 45 unit subcut QDAY 08/12/21 08/03/23 mL) subcutaneous pen (Tresiba FlexTouch U-200 insulin) atorvastatin 20 mg tablet 20 mg PO HS 03/11/22 08/03/23 benzonatate 100 mg capsule 100 mg PO TID 03/11/22 08/03/23 insulin aspart U-100 100 unit/mL 6 unit subcut TIDWM 03/11/22 08/03/23 (3 mL) subcutaneous pen (Novolog FlexPen U-100 Insulin aspart) amitriptyline 25 mg tablet 25 mg PO QDAY PRN Anxiety 01/25/23 08/03/23 diltiazem HCl 240 mg 240 mg PO QDAY 05/19/23 08/03/23 tablet,extended release 24 hr Held on 09/21/23. Instructions: Resume on 10/05/23. Please f/u with your PCP before resuming this medicine Previous Rx's ?Medication ?Instructions ?Recorded amlodipine 10 mg tablet 10 mg PO QDAY #30 tabs 01/27/23 furosemide 40 mg tablet (Lasix) 40 mg PO QAM #30 tabs 05/25/23 Held on 09/21/23. Instructions: Resume on 09/28/23. Please f/u with your PCP before starting this medicine losartan 50 mg tablet 50 mg PO QDAY #30 tabs 05/25/23 hydroxyzine pamoate 25 mg capsule 25 mg PO HS #30 caps 06/25/23 pentosan polysulfate sodium 100 mg 100 mg PO TID #90 caps 09/21/23 capsule cefdinir 300 mg capsule 300 mg PO BID #14 caps 04/12/24 clonidine HCl 0.1 mg tablet 0.1 mg PO BID #60 tabs 04/12/24 ondansetron 4 mg disintegrating 4 mg PO TID PRN nausea and 04/12/24 tablet vomiting 5 days #10 tabs Allergies Allergy/AdvReac Type Severity Reaction Status Date / Time amoxicillin Allergy Severe Vomiting Verified 04/11/24 15:09 codeine Allergy Severe PALPITATION Verified 04/11/24 15:09 S diazepam Allergy Severe RAPID Verified 04/11/24 15:09 HEARTRATE hydrocodone Allergy Severe Vomiting Verified 04/11/24 15:09 hydromorphone Allergy Severe Agitated Verified 04/11/24 15:09 ibuprofen Allergy Severe BLEEDING Verified 04/11/24 15:09 IN STOMACH PER PT meperidine Allergy Severe RAPID Verified 04/11/24 15:09 HEARTRATE morphine Allergy Severe RAPID Verified 04/11/24 15:09 HEARTRATE propoxyphene Allergy Severe RAPID Verified 04/11/24 15:09 HEARTRATE adhesive tape AdvReac Severe Hives Verified 04/11/24 15:09 levofloxacin AdvReac Severe VOMITS Verified 04/11/24 15:09 Review of Systems Review of Systems Systems Reviewed: All systems reviewed, normal except as documented Narrative Review of Systems: Gen: No fever, no chills, no weight loss EYES: No discharge, no visual changes, no pain HEENT: No ear pain, no congestion, no sore throat PULM: No shortness of breath, no cough, no congestion CV: No chest pain, no dyspnea on exertion, no palpitations GI: No nausea, no vomiting, no diarrhea, + pain, no constipation : No frequency, no urgency, no dysuria Musc/skel: No joint pain, no back pain Skin: No rash. Warm and dry. Psyc: No hallucinations, no depression Heme/Lymph: No easy bleeding or bruising tendencies Neuro: No weakness, no headache, + near syncope ED Exam Narrative Physical exam: GENERAL APPEARANCE: alert and oriented x 4, well-developed, well-nourished, no acute distress VITALS: All vitals were reviewed and the pulse ox is 97% on room air, which is normal according to my interpretation. HEENT: Normocephalic, atraumatic; pupils equal, round, reactive to light; EOMI; mucous membranes pink, moist; oropharynx clear NECK: Supple LUNGS: CTABL; no wheezes, no rales, no rhonchi HEART: Regular rate, regular rhythm; normal S1, S2; no murmurs ABDOMEN: non distended; normal BS; soft, no tenderness, no guarding, no rebound; no masses, no organomegaly, no hernia BACK: no CVA tenderness EXTREMITIES: atraumatic; no edema NEUROLOGIC: awake; alert and oriented x4; cranial nerves II-XII grossly intact; no focal sensory or motor deficits PSYCHIATRIC: appropriate mood and affect SKIN: warm, dry, normal color; no rashes Course Course Course Narrative: CXR is ordered for determining the etiology of upper abdominal pain. Quality Measures none Orders Category Date Time Status EKG (ED ONLY) *Do not use* NOW Care 04/12/24 04:11 Active Diet Regular Diet 04/12/[address] chest abdomen pelvis wo Stat Exams 04/12/24 07:[address] head/brain wo con Stat Exams 04/12/24 06:25 Completed EKG (ED Only) Stat Exams 04/12/24 04:11 Ordered US gall bladder Stat Exams 04/12/24 06:25 Completed XR chest 1V portable Stat Exams 04/12/24 05:01 Completed CBC Stat Lab 04/12/24 05:40 Completed CMP [Comprehensive Metabolic Panel] Stat Lab 04/12/24 05:40 Completed Lipase Stat Lab 04/12/24 05:40 Completed Magnesium Stat Lab 04/12/24 05:40 Completed Troponin I Stat Lab 04/12/24 05:40 Completed Urine Culture Stat Lab 04/12/24 06:22 Ordered Urine Culture Stat Lab 04/12/24 06:23 Ordered Acetaminophen Tab [Tylenol ES Tab] Med 04/12/24 05:01 Discontinued 1,000 mg PO X1 ONE cefTRIAXone [Rocephin] 1,000 mg Med 04/12/24 06:23 Discontinued Sodium Chloride 0.9% (P) [Ns 0.9% (P)] 50 ml IV X1 cloNIDine HCL [Catapres] Med 04/12/24 05:03 Discontinued 0.1 mg PO X1 ONE cloNIDine HCL [Catapres] Med 04/12/24 05:04 Discontinued 0.1 mg PO X1 ONE mg Hyd/Al Hyd/Arya Susp [Maalox Susp] Med 04/12/24 05:01 Discontinued 30 ml PO X1 ONE Vital Signs Vital signs: Vital Signs Pulse Rate 94 04/12/24 04:09 Respiratory Rate 15 04/12/24 04:09 Blood Pressure 202/119 H 04/12/24 04:09 Pulse Oximetry (%) 97 04/12/24 04:09 Syncope MDM Narrative MDM Narrative:: Scribe Attestation: 04/12/24 - Maria Eugenia Rooney am scribing for and in the presence of Dr. Mclean. Patient data External records reviewed:: [facility] previous records (Per chart review, patient was seen here yesterday for abdominal pain, but eloped.) Clinical information provided by:: patient Social determinants that could affect healthcare access:: none Patient has the following chronic illnesses:: IDDM, HTN, HLD How is presenting disease/condition affected by chronic disease/condition?: uneffected by Evaluation data The following diagnostics were reviewed and interpreted by me:: lab results, radiology exam(s) and EKG tracing(s) Lab and/or radiology exams considered but not ordered:: none Interpretation Summary: Labs are pending at the time of sign out. CXR shows normal cardiac silhouette, normal sharp diaphragmatic edge, no infiltrates, normal costophrenic angles, unchanged from the prior examination, according to my interpretation. EKG done at 0416, NSR, rate of 75, normal axis, no ectopy, nonspecific ST abnormalities, no STEMI, according to my interpretation. Medications / Prescriptions Medications or Prescriptions considered but not ordered:: none Medication administrations:: Medication Administration History Discontinued Medications Acetaminophen (Acetaminophen 500 Mg Tablet) 1,000 mg PO X1 ONE Stop: 04/12/24 05:02 Last Admin: 04/12/24 05:23 Dose: 1,000 mg Documented By: JE Al Hydrox/Mg Hydrox/Simethicone (Mg Hyd/Al Hyd/Arya (Maalox Reg) Susp 30 Ml Udc) 30 ml PO X1 ONE Stop: 04/12/24 05:02 Last Admin: 04/12/24 05:23 Dose: 30 ml Documented By: SOHAM Clonidine (Clonidine Hcl 0.1 Mg Tablet) 0.1 mg PO X1 ONE Stop: 04/12/24 05:04 Last Admin: 04/12/24 05:22 Dose: 0.1 mg Documented By: SOHAM Clonidine (Clonidine Hcl 0.1 Mg Tablet) 0.1 mg PO X1 ONE Stop: 04/12/24 05:05 Last Admin: 04/12/24 05:23 Dose: 0.1 mg Documented By: SOHAM Ceftriaxone Sodium 1,000 mg/ (Sodium Chloride) 50 mls @ 100 mls/hr IV X1 ONE Stop: 04/12/24 06:52 Last Admin: 04/12/24 07:00 Dose: 100 mls/hr Documented By: SOHAM see above Consultations Consultation(s) initiated? (list below): No Diagnosis Syncope Differential Diagnosis: other (GERD, gastritis, PUD, pancreatitis, gallbladder pathology) Most likely diagnosis given after review of the tests above:: see below Admission Indicated Admission indicated?: not indicated Explain why admission is indicated or not indicated:: Admission criteria not met Admission Request Was there a request for admission?: No Disposition Plan Disposition Plan: Discharge (Signed out to Dr. Dillard at 0600 pending labs and final disposition.) Discharge Attestation Discharge Attestation: The patient and all family members were given an opportunity to ask questions and understood the discharge instructions. Discharge instructions specifically effects, indications for sooner follow up or return to the emergency department, and the expected course of current diagnosis. Patient condition: Stable Discharge Plan Plan Patient Disposition: HOME (Self Care) Disposition Comment: Stable at signout. Prescriptions/Referrals Prescriptions/Med Rec: New ondansetron 4 mg tablet,disintegrating 4 mg PO TID PRN (Reason: nausea and vomiting) 5 Days Qty: 10 0RF cefdinir 300 mg capsule 300 mg PO BID Qty: 14 0RF clonidine HCl 0.1 mg tablet 0.1 mg PO BID Qty: 60 1RF No Action loratadine 10 mg tablet 10 mg PO QDAY Patient Comments: TAKE 1 TABLET BY MOUTH EVERY DAY insulin degludec [Tresiba FlexTouch U-200] 200 unit/mL (3 mL) insulin pen 45 unit SUBCUT QDAY aspirin 81 mg Tablet,Delayed Release (Dr/Ec) 81 mg PO DAILY omeprazole 20 mg Capsule,Delayed Release(Dr/Ec) 20 mg PO QDAY amitriptyline 25 mg tablet 25 mg PO QDAY PRN (Reason: Anxiety) amlodipine 10 mg tablet 10 mg PO QDAY Qty: 30 0RF diltiazem HCl 240 mg Tablet Extended Release 24 Hr 240 mg PO QDAY furosemide [Lasix] 40 mg tablet 40 mg PO QAM Qty: 30 0RF losartan 50 mg tablet 50 mg PO QDAY Qty: 30 1RF atorvastatin 20 mg tablet 20 mg PO HS benzonatate 100 mg capsule 100 mg PO TID Patient Comments: TAKE 1 CAPSULE BY MOUTH TWICE DAILY insulin aspart U-100 [Novolog FlexPen U-100 Insulin] 100 unit/mL (3 mL) insulin pen 6 unit SUBCUT TIDWM Patient Comments: INJECT 10 UNITS UNDER THE SKIN THREE TIMES DAILY WITH MEALS hydroxyzine pamoate 25 mg capsule 25 mg PO HS Qty: 30 0RF pentosan polysulfate sodium 100 mg capsule 100 mg PO TID Qty: 90 3RF Referrals: Collin Herrera PA-C [Primary Care Provider] - In 1 week Problem List Clinical Impression: Uncontrolled hypertension, Near syncope, UTI (urinary tract infection) Patient/Caregiver Discharge Instructions Discharge Activity: activity as tolerated Education Materials: ED Hypertension, Established, ED Fainting, Uncertain Cause, ED CYSTITIS Female Adult Additional Instructions: Discharge instructions from Dr. Dillard: 1. After extensive evaluation, there is no life-threatening condition.? Such as stroke or heart attack or pneumothorax (collapsed lung). 2. For your uncontrolled high BP, take clonidine 0.1 mg every morning and every night, along with your current BP medication. 3. For UTI, take cefdinir as prescribed. For good hydration, increase oral fluid and maintain clear urine. If dark or yellow, increase oral fluid. Zofran for nausea/vomiting. 4. See a private doctor on 04/14/2024 for recheck and further care. Ask to review all test results and official radiology reports, to make sure you receive all necessary follow-ups and monitoring, including final urine culture results from today. To make sure there is no serious underlying heart condition, ask to help you get more tests for your heart that cannot be done here in the ER.? Such as Holter Monitor (cardiac monitoring at home from a day to even a month), heart stress test (on treadmill or with medication), echocardiogram (imaging of your heart structures), heart catherization (checking for blockages in your heart arteries), and a referral to see a Film Printer. 5. Seek immediate medical care with worsening or with any concerns.?? Print Language: Maltese Stand Alone Forms: Grace Award Info., Patient Portal Info Letter Attestation Attestation I took over the care from Dr. Mclean at 6 AM on 04/12/2024, see his notes for complete H&P and ED course. I reviewed all diagnostic test results. My interpretation of the chest x-ray is no acute findings. My review of the head CT report is no acute findings. My review of the chest/abdomen/pelvis CT report is no acute findings. My review of the gallbladder US report is no acute findings. Blood tests and urine tests remarkable for UTI. At this point, diagnoses include UTI and uncontrolled hypertension. Treatment here included Rocephin and clonidine. Significant improvement noted both subjectively and objectively. Recommended more outpatient care. Based on my best medical judgment, made decision no further evaluation or treatment indicated at this time. Patient understands and agrees to the discharge instructions customized and printed, see below. Discharge instructions from Dr. Dillard: 1. After extensive evaluation, there is no life-threatening condition.? Such as stroke or heart attack or pneumothorax (collapsed lung). 2. For your uncontrolled high BP, take clonidine 0.1 mg every morning and every night, along with your current BP medication. 3. For UTI, take cefdinir as prescribed. For good hydration, increase oral fluid and maintain clear urine. If dark or yellow, increase oral fluid. Zofran for nausea/vomiting. 4. See a private doctor on 04/14/2024 for recheck and further care. Ask to review all test results and official radiology reports, to make sure you receive all necessary follow-ups and monitoring, including final urine culture results from today. To make sure there is no serious underlying heart condition, ask to help you get more tests for your heart that cannot be done here in the ER.? Such as Holter Monitor (cardiac monitoring at home from a day to even a month), heart stress test (on treadmill or with medication), echocardiogram (imaging of your heart structures), heart catherization (checking for blockages in your heart arteries), and a referral to see a Film Printer. 5. Seek immediate medical care with worsening or with any concerns.?? Henry Dillard MD
--- NOTE | 2024-04-12 05:01 | XR_ITS ---
Examination bony degenerative single view TECHNIQUE: AP portable upright chest single view. Examination time: April 12, 2024 at 0521 hours Comparison March 24, 2024 INDICATIONS: Syncopal episode today FINDINGS: Normal heart size No aspiration pneumonia No pulmonary edema Ectatic thoracic aorta Prominent osteopenia IMPRESSION: No pneumonia or pulmonary edema
[2024-04-12] MEDS: cloNIDine HCL 0.1 MG TABLET PO ×2 (05:22→05:23)
[2024-04-12] MEDS: MG HYD/AL HYD/SIME (Maalox Reg) SUSP 30 ML UDC PO (05:23)
[2024-04-12] MEDS: ACETAMINOPHEN 500 MG TABLET 1000 MG PO (05:23)
[2024-04-12 05:56] LABS: Basophils # (Auto) 0.1 Thou/mm3 (0.0-0.2); Basophils % (Auto) 1 % (0-2.5); Eosinophils # (Auto) 0.1 Thou/mm3 (0.0-0.5); Eosinophils % (Auto) 1 % (0-10); Hematocrit 32.4 % (36.0-46.0); Hemoglobin 11.1 g/dL (12.0-16.0); Immature Granulocytes % (Auto) 1 % (0-0); Immature Granulocytes Auto 0.06 Thou/mm3 (0.00-0.00); Lymphocytes % (Auto) 28 % (10-50); Mean Corpuscular HGB Conc 34.3 g/dl (31.0-37.0); Mean Corpuscular Hemoglobin 30.4 pg (25.0-35.0); Mean Corpuscular Volume 89 fL (80-100); Monocytes # (Auto) 0.6 Thou/mm3 (0.0-0.8); Monocytes % (Auto) 5 % (0-12); Neutrophils # (Auto) 7.2 Thou/mm3 (1.8-7.7); Neutrophils % (Auto) 66 % (37-80); Nucleated Red Blood Cell % 0 /100 WBC (0); Platelet Count 270 Thou/mm3 (140-440); RDW Standard Deviation 41.6 fL (36.4-46.3); Red Blood Count 3.65 Miln/mm3 (4.00-5.20)
[2024-04-12 06:21] LABS: Alanine Aminotransferase 13 U/L (10-49); Albumin/Globulin Ratio 1.5 (1.2-2.2); Alkaline Phosphatase 153 U/L (46-116); Anion Gap 6 (7-16); Aspartate Amino Transferase 14 U/L (0-34); BUN/Creatinine Ratio 21 Ratio (12-20); Bilirubin,Total 0.3 mg/dL (0.3-1.2); Blood Urea Nitrogen 49 mg/dL (9-23); Calcium 9.7 mg/dL (8.3-10.6); Calcium (Corrected) 9.7 mg/dL (8.5-10.1); Carbon Dioxide 27.6 mMol/L (20.0-31.0); Chloride 106 mMol/L (98-107); Creatinine (Component) 2.3 mg/dL (0.6-1.3); Estimated Creatinine Clearance 20.6 mL/min (>60); Globulin 2.7 gm/dL (2.3-3.5); Glucose 167 mg/dL (74-106); Lipase 40 U/L (12-53); Osmolality,Calculated 296 (275-295); Potassium 4.2 mMol/L (3.4-5.1); Sodium 140 mMol/L (136-145); Total Protein 6.7 gm/dL (5.7-8.2); Troponin I < 0.020 ng/mL (0.0-0.045); eGFR 21 See Note
--- NOTE | 2024-04-12 06:25 | XR_ITS ---
Examination: Abdomen sonogram, Limited Date and time of exam: April 12, 2024 0718 hours INDICATIONS: Right upper abdominal pain and tenderness beginning today Technique: Real-time morales scale transabdominal sonographic images of the upper abdomen obtained. Findings: Absent gallbladder Common bile duct 0.2 cm no stones Pancreatic head 2.6 cm Liver 13.9 cm irregular contour fatty infiltration no focal liver lesions Normal hepatopedal portal venous flow Patent IVC IMPRESSION: Absent gallbladder. No common bile duct stones Fatty liver, suspect primary hepatocellular disease, no focal liver lesions
--- NOTE | 2024-04-12 06:25 | XR_ITS ---
Examination: CT brain head without contrast. 2-D sagittal coronal reconstructions Date and time of exam:April 12, 2024 0817 hours Comparison March 10, 2022 INDICATIONS: Syncopal episode today CTDI: vol (mGy):47 DLP: (mGycm):907 Technique: Multiple CT axial sections of the brain have been obtained, 5 mm slice thickness. Contrast has not been administered. 2-D sagittal, coronal reconstructions have been obtained Low dose protocols were performed. One or more of the following dose reduction techniques were used; automated exposure control, adjustment of the mA and/or KV according to patient size, use of iterative reconstruction technique. Findings: No significant ventricular enlargement. 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 No mass effect or midline shift Basal cisterns are not remarkable. Fourth ventricle is midline. Cranial vault intact. Impression: Negative for acute hemorrhage, mass effect or midline shift Advise clinical correlation and follow-up accordingly
[2024-04-12 06:49] LABS: Magnesium 2.3 mg/dL (1.6-2.6)
[2024-04-12] MEDS: cefTRIAXone 1,000 MG in SODIUM CHLORIDE 0.9% (P) 50 ML 100 MG IV (07:00)
--- NOTE | 2024-04-12 07:48 | XR_ITS ---
Examination: CT chest, without intravenous contrast. CT abdomen, without intravenous contrast. CT pelvis, without intravenous contrast. 2-D sagittal and coronal reconstructions. 3-D reconstructions. Date and time of exam:April 12, 2024 0820 hours INDICATIONS: Onset shortness of breath chest pain generalized abdominal pain today CTDI vol (mgy) 10 DLP (MGycm)695 Technique: Multiple CT images, 3.0 mm slice thickness, obtained chest, abdomen, pelvis, with the high-resolution 64 slice scanner.. Sagittal and coronal 2-D reconstructions are obtained. 3-D reconstructions Low dose protocols were performed. One or more of the following dose reduction techniques were used; automated exposure control, adjustment of the mA and/or KV according to patient size, use of iterative reconstruction technique. Findings: 15 mm right thyroid nodule No thoracic aortic aneurysmal dilatation no aneurysmal dilatation Pulmonary artery segments are not enlarged Significant calcification left anterior descending left circumflex right coronary arteries Mild enlargement cardiac contour Mild vascular congestion 8mm 6 mm pulmonary nodules right upper lobe image 49 8 mm pulmonary nodule left upper lobe image 19 No lobar pneumonia No focal liver lesions or biliary tract dilatation Absent gallbladder Spleen not enlarged No pancreatic or adrenal mass Moderate bilateral renal parenchymal scar formation Heavy abdominal aortic calcification no aneurysmal dilatation No pericecal inflammatory change No bowel obstruction or diverticulitis 8mm fat-containing umbilical hernia Absent uterus Urinary bladder wall thickening more prominent on the right side measuring up to 8 mm No bladder mass or bladder calculi Prominent osteopenia Moderate disc narrowing L5-S1 Moderate narrowing hip joints IMPRESSION: 15 mm right thyroid nodule Noncalcified pulmonary nodules as above, with this study as baseline recommend 6 month follow-up CT chest without contrast Moderate vascular congestion Moderate bilateral renal parenchymal scar formation, no hydronephrosis renal or ureteral calculi No CT findings of appendicitis bowel obstruction or diverticulitis Abnormal thickening of the urinary bladder wall, more prominent on the right side measuring up to 8 mm, differential would include cystitis, early bladder cancer not excluded, consider follow-up urinary bladder sonography
--- NOTE | 2024-04-12 08:30 | PC.NURSE ---
Pt states that she is feeling better at this time. pt denies pain or discomfort. pt requesting oatmeal and hot tea. per Dr. Dillard, okay for pt to eat. will order food tray at this time.
== END 2024-04-12 11:50 | disposition home or self-care (01) ==
PROVIDERS: Emergency Medicine; Emergency Provider Emergency Medicine; PCP Physician Assistant
DX: N39.0 Urinary tract infection, site not specified (principal); I10 Essential (primary) hypertension; I49.8 Other specified cardiac arrhythmias; R55 Syncope and collapse; R10.11 Right upper quadrant pain; R06.02 Shortness of breath; R07.9 Chest pain, unspecified
CPT/HCPCS: 36415; 70450; 71045; 71250; 74176; 76705; 80053; 83690; 83735; 84484; 85025; 87086; 93005; 99284; J0696; J7050; A9270

== ENCOUNTER 2024-04-23 20:16 | Emergency (ER) | payer MEDICARE, MEDICAID, SELFPAY ==
[2024-04-23 20:25] VITALS: PULSE 92; RESP 18; O2SAT 99
[2024-04-23 20:29] VITALS: BMI 31.1
[2024-04-23 20:53] VITALS: BP 172/97; PULSE 69; RESP 16; TEMP 36.4; O2SAT 98
--- NOTE | 2024-04-23 21:09 | EKG_ITS ---
[facility] Test Date: 2024-04-23 Pat Name: TYREE NOLASCO Department: Room: - Gender: Female Process Pumper: : [id number] Requested By: Rhys Kennedy ([facility]) Order Number: [id number] Reading MD: Rhys Kennedy ([facility]) Measurements Intervals Graham Rate: 73 P: 29 IA: 131 QRS: 11 QRSD: 108 T: 74 QT: 376 QTc: 416 Interpretive Statements SINUS RHYTHM NONSPECIFIC T-WAVE ABNORMALITY Compared to ECG 04/13/2024 04:16:25 Sinus arrhythmia no longer present T-wave abnormality still present /store/S0/[id number]/ecg/[id number].pdf
--- NOTE | 2024-04-23 21:09 | XR_ITS ---
Examination: PA lateral chest 2 views Technique: Upright PA lateral chest 2 views Exam date and time: April 23, 20242124 hrs. Comparison April 12, 2024 Indications: Chest pain today. Findings: Normal heart size No lobar pneumonia or pulmonary edema Significant osteopenia Impression: No pneumonia or pulmonary edema
--- NOTE | 2024-04-23 21:10 | PD.EDRME ---
Rapid Medical Screening Exam RME Arrival date/time: 04/23/24 20:16 83-year-old female past medical history of hypertension, diabetes, and CHF presents emergency department complaining of shortness of breath and abdominal pain. Chief Complaint: Anxiety Time Seen by Provider: 04/23/24 20:34 Vital signs: Vital Signs Temperature 97.6 F 04/23/24 20:53 Pulse Rate 69 04/23/24 20:53 Respiratory Rate 16 04/23/24 20:53 Blood Pressure 172/97 H 04/23/24 20:53 Pulse Oximetry (%) 98 04/23/24 20:53 Oxygen Delivery Method Room Air 04/23/24 20:53 Vital signs reviewed by provider: Yes
[2024-04-23 21:41] LABS: Basophils # (Auto) 0.1 Thou/mm3 (0.0-0.2); Basophils % (Auto) 1 % (0-2.5); Eosinophils # (Auto) 0.1 Thou/mm3 (0.0-0.5); Eosinophils % (Auto) 1 % (0-10); Hemoglobin 10.6 g/dL (12.0-16.0); Immature Granulocytes % (Auto) 0 % (0-0); Immature Granulocytes Auto 0.05 Thou/mm3 (0.00-0.00); Lymphocytes # (Auto) 3.1 Thou/mm3 (1.0-4.8); Lymphocytes % (Auto) 24 % (10-50); Mean Corpuscular HGB Conc 33.1 g/dl (31.0-37.0); Mean Corpuscular Hemoglobin 29.8 pg (25.0-35.0); Mean Corpuscular Volume 90 fL (80-100); Monocytes # (Auto) 0.7 Thou/mm3 (0.0-0.8); Monocytes % (Auto) 6 % (0-12); Neutrophils % (Auto) 69 % (37-80); Nucleated Red Blood Cell % 0 /100 WBC (0); Platelet Count 251 Thou/mm3 (140-440); Red Blood Count 3.56 Miln/mm3 (4.00-5.20); White Blood Count 13.1 Thou/mm3 (3.6-11.0)
[2024-04-23 22:02] LABS: Alanine Aminotransferase 11 U/L (10-49); Albumin/Globulin Ratio 1.4 (1.2-2.2); Alkaline Phosphatase 146 U/L (46-116); Anion Gap 8 (7-16); Aspartate Amino Transferase < 10 U/L (0-34); B-Type Natriuretic Peptide 47 pg/mL (0-100); BUN/Creatinine Ratio 23 Ratio (12-20); Bilirubin,Total 0.2 mg/dL (0.3-1.2); Blood Urea Nitrogen 53 mg/dL (9-23); Calcium 9.1 mg/dL (8.3-10.6); Calcium (Corrected) 9.1 mg/dL (8.5-10.1); Carbon Dioxide 25.3 mMol/L (20.0-31.0); Chloride 103 mMol/L (98-107); Creatinine (Component) 2.3 mg/dL (0.6-1.3); Estimated Creatinine Clearance 17.8 mL/min (>60); Globulin 2.8 gm/dL (2.3-3.5); Glucose 158 mg/dL (74-106); Lipase 67 U/L (12-53); Osmolality,Calculated 289 (275-295); Potassium 3.9 mMol/L (3.4-5.1); Sodium 136 mMol/L (136-145); Total Protein 6.8 gm/dL (5.7-8.2); Troponin I < 0.020 ng/mL (0.0-0.045); eGFR 21 See Note
[2024-04-23] MEDS: MG HYD/AL HYD/SIME (Maalox Reg) SUSP 30 ML UDC PO (22:53)
[2024-04-23] MEDS: ACETAMINOPHEN 500 MG TABLET 1000 MG PO (22:53)
[2024-04-23] MEDS: LIDOCAINE VISCOUS 2% 15 ML UDC PO (22:53)
[2024-04-23 22:57] LABS: Amphetamine/Methamp Scrn,U Negative (Negative); Barbiturate Screen,Urine Negative (Negative); Benzodiazepines Screen,Urine Negative (Negative); Benzoylecgonine Screen, Ur Negative (Negative); Fentanyl Screen,Urine Negative (Negative); Opiate Screen,Urine Negative (Negative); THC Screen,Urine Negative (Negative)
--- NOTE | 2024-04-23 23:57 | PD.EDANX ---
ED Anxiety RME/HPI General Chief Complaint: Anxiety Stated Complaint: ANXIETY Time Seen by Provider: 04/23/24 20:34 Arrival date/time: 04/23/24 20:16 RME / HPI RME / HPI narrative: 04/23/24 20:16 83-year-old female past medical history of hypertension, diabetes, and CHF presents emergency department complaining of shortness of breath and abdominal pain. --------- Dr. Mclean?s Main ED Evaluation: 83yo female with a history of IDDM, HTN, HLD presents to the ED for multiple vague complaints. Patient states she's had pain with urination, urinary frequency, a headache, and shortness of breath for an unspecified amount of time. She states she gets anxiety attacks, but nothing has been helping her. She denies any urinary urgency, N/V, dizziness, fever, chills or any other associated symptoms. PCP is Dr. Brito. Patient states she feels better since arriving to the ED. Related Data Home Medications ?Medication ?Instructions ?Recorded ?Confirmed loratadine 10 mg tablet 10 mg PO QDAY 04/22/21 08/03/23 aspirin 81 mg tablet,delayed 81 mg PO DAILY 06/20/21 08/03/23 release Held on 09/22/23. Instructions: Resume on 09/29/23. Please hold until you see your PCP omeprazole 20 mg capsule,delayed 20 mg PO QDAY 06/20/21 08/03/23 release insulin degludec 200 unit/mL (3 45 unit subcut QDAY 08/12/21 08/03/23 mL) subcutaneous pen (Tresiba FlexTouch U-200 insulin) atorvastatin 20 mg tablet 20 mg PO HS 03/11/22 08/03/23 benzonatate 100 mg capsule 100 mg PO TID 03/11/22 08/03/23 insulin aspart U-100 100 unit/mL 6 unit subcut TIDWM 03/11/22 08/03/23 (3 mL) subcutaneous pen (Novolog FlexPen U-100 Insulin aspart) amitriptyline 25 mg tablet 25 mg PO QDAY PRN Anxiety 01/25/23 08/03/23 diltiazem HCl 240 mg 240 mg PO QDAY 05/19/23 08/03/23 tablet,extended release 24 hr Held on 09/21/23. Instructions: Resume on 10/05/23. Please f/u with your PCP before resuming this medicine Previous Rx's ?Medication ?Instructions ?Recorded amlodipine 10 mg tablet 10 mg PO QDAY #30 tabs 01/27/23 furosemide 40 mg tablet (Lasix) 40 mg PO QAM #30 tabs 05/25/23 Held on 09/21/23. Instructions: Resume on 09/28/23. Please f/u with your PCP before starting this medicine losartan 50 mg tablet 50 mg PO QDAY #30 tabs 05/25/23 hydroxyzine pamoate 25 mg capsule 25 mg PO HS #30 caps 06/25/23 pentosan polysulfate sodium 100 mg 100 mg PO TID #90 caps 09/21/23 capsule cefdinir 300 mg capsule 300 mg PO BID #14 caps 04/12/24 clonidine HCl 0.1 mg tablet 0.1 mg PO BID #60 tabs 04/12/24 Allergies Allergy/AdvReac Type Severity Reaction Status Date / Time amoxicillin Allergy Severe Vomiting Verified 04/11/24 15:09 codeine Allergy Severe PALPITATION Verified 04/11/24 15:09 S diazepam Allergy Severe RAPID Verified 04/11/24 15:09 HEARTRATE hydrocodone Allergy Severe Vomiting Verified 04/11/24 15:09 hydromorphone Allergy Severe Agitated Verified 04/11/24 15:09 ibuprofen Allergy Severe BLEEDING Verified 04/11/24 15:09 IN STOMACH PER PT meperidine Allergy Severe RAPID Verified 04/11/24 15:09 HEARTRATE morphine Allergy Severe RAPID Verified 04/11/24 15:09 HEARTRATE propoxyphene Allergy Severe RAPID Verified 04/11/24 15:09 HEARTRATE adhesive tape AdvReac Severe Hives Verified 04/11/24 15:09 levofloxacin AdvReac Severe VOMITS Verified 04/11/24 15:09 Review of Systems Review of Systems Systems Reviewed: All systems reviewed, normal except as documented ED Exam Narrative Physical exam: GENERAL APPEARANCE: alert and oriented x 4, well-developed, well-nourished, no acute distress VITALS: All vitals were reviewed and the pulse ox is 98% on room air, which is normal according to my interpretation. HEENT: Normocephalic, atraumatic; pupils equal, round, reactive to light; EOMI; mucous membranes pink, moist; oropharynx clear NECK: Supple LUNGS: CTABL; no wheezes, no rales, no rhonchi HEART: Regular rate, regular rhythm; normal S1, S2; no murmurs ABDOMEN: non distended; normal BS; soft, no tenderness, no guarding, no rebound; no masses, no organomegaly, no hernia BACK: no CVA tenderness EXTREMITIES: atraumatic; no edema NEUROLOGIC: awake; alert and oriented x4; cranial nerves II-XII grossly intact; no focal sensory or motor deficits PSYCHIATRIC: appropriate mood and affect SKIN: warm, dry, normal color; no rashes Course Course Course Narrative: CXR is ordered for determining the etiology of shortness of breath. Quality Measures none Orders Category Date Time Status EKG (ED ONLY) *Do not use* NOW Care 04/23/24 21:09 Completed EKG (ED Only) Stat Exams 04/23/24 21:09 Draft XR chest 2V Stat Exams 04/23/24 21:09 Completed BNP [B-Type Natriuretic Peptide] Stat Lab 04/23/24 21:19 Completed CBC Stat Lab 04/23/24 21:19 Completed Comprehensive Metabolic Panel Stat Lab 04/23/24 21:19 Completed Drug Screen,Urine Stat Lab 04/23/24 22:22 Completed Lipase Stat Lab 04/23/24 21:19 Completed Troponin I Stat Lab 04/23/24 21:19 Completed Acetaminophen Tab [Tylenol ES Tab] Med 04/23/24 21:09 Discontinued 1,000 mg PO X1 ONE Lidocaine 2% Viscous [Xylocaine 2% Viscous] Med 04/23/24 21:09 Discontinued 15 ml PO X1 ONE mg Hyd/Al Hyd/Arya Susp [Maalox Susp] Med 04/23/24 21:09 Discontinued 30 ml PO X1 ONE Vital Signs Vital signs: Vital Signs Temperature 97.6 F 04/23/24 20:53 Pulse Rate 69 04/23/24 20:53 Respiratory Rate 16 04/23/24 20:53 Blood Pressure 172/97 H 04/23/24 20:53 Pulse Oximetry (%) 98 04/23/24 20:53 Oxygen Delivery Method Room Air 04/23/24 20:53 Anxiety MDM Narrative MDM Narrative: Scribe Attestation: 04/23/24 Maria Eugenia Rolon am scribing for and in the presence of Dr. Mclean. Patient data External records reviewed:: [facility] previous records (Per chart review, patient was seen here on 04/12/24 for near syncope.) Clinical information provided by:: patient Social determinants that could affect healthcare access:: none Patient has the following chronic illnesses:: IDDM, HTN, HLD How is presenting disease/condition affected by chronic disease/condition?: uneffected by Evaluation data The following diagnostics were reviewed and interpreted by me:: lab results, radiology exam(s) and EKG tracing(s) Lab and/or radiology exams considered but not ordered:: none Interpretation Summary: WBC count is 13.1, Creatinine is 2.3 (which is chronic), troponin is normal, BNP is normal, UDS is negative, according to my interpretation. EKG done at 2113, NSR, rate of 73, normal axis, no ectopy, nonspecific ST abnormalities in lead I and avL, no STEMI, according to my interpretation. ------- [facility] Report Signed Patient: TYREE NOLASCO [facility] Record#: [id number] Birthdate: 1940 Age/Sex: 83 / F Location: [facility] Attending Dr: Ordering Physician: Mahsa SIN)Rhys Date of Service: 04/23/24 Procedure(s): XR chest 2V Accession Number(s): [id number] cc: Rory Meeks MD; Mahsa SIN),Rhys HARO~ Examination: PA lateral chest 2 views Technique: Upright PA lateral chest 2 views Exam date and time: April 23, 20245 hrs. Comparison April 12, 2024 Indications: Chest pain today. Findings: Normal heart size No lobar pneumonia or pulmonary edema Significant osteopenia Impression: No pneumonia or pulmonary edema Dictated By: Rory Meeks MD Signed By: <Electronically signed by Rory Meeks MD in OV> 04/23/242130 Medications / Prescriptions Medications or Prescriptions considered but not ordered:: none Medication administrations:: Medication Administration History Discontinued Medications Acetaminophen (Acetaminophen 500 Mg Tablet) 1,000 mg PO X1 ONE Stop: 04/23/24 21:10 Last Admin: 04/23/24 22:53 Dose: 1,000 mg Documented By: BUBBA Al Hydrox/Mg Hydrox/Simethicone (Mg Hyd/Al Hyd/Arya (Maalox Reg) Susp 30 Ml Udc) 30 ml PO X1 ONE Stop: 04/23/24 21:10 Last Admin: 04/23/24 22:53 Dose: 30 ml Documented By: BUBBA Lidocaine HCl (Lidocaine Viscous 2% 15 Ml Udc) 15 ml PO X1 ONE Stop: 04/23/24 21:10 Last Admin: 04/23/24 22:53 Dose: 15 ml Documented By: BUBBA see above Consultations Consultation(s) initiated? (list below): No Diagnosis Differential diagnosis anxiety: other (anxiety reaction, hyperthyroidism, depression, viral syndrome) Most likely diagnosis given after review of the tests above:: see below Admission Indicated Admission indicated?: not indicated Admission Request Was there a request for admission?: No Disposition Plan Disposition Plan: Discharge Discharge Attestation Discharge Attestation: The patient and all family members were given an opportunity to ask questions and understood the discharge instructions. Discharge instructions specifically effects, indications for sooner follow up or return to the emergency department, and the expected course of current diagnosis. Patient condition: Stable Discharge Plan Plan Patient Disposition: HOME (Self Care) Disposition Comment: Stable for discharge Patient condition on transfer: Stable Prescriptions/Referrals Prescriptions/Med Rec: No Action loratadine 10 mg tablet 10 mg PO QDAY Patient Comments: TAKE 1 TABLET BY MOUTH EVERY DAY insulin degludec [Tresiba FlexTouch U-200] 200 unit/mL (3 mL) insulin pen 45 unit SUBCUT QDAY aspirin 81 mg Tablet,Delayed Release (Dr/Ec) 81 mg PO DAILY omeprazole 20 mg Capsule,Delayed Release(Dr/Ec) 20 mg PO QDAY amitriptyline 25 mg tablet 25 mg PO QDAY PRN (Reason: Anxiety) amlodipine 10 mg tablet 10 mg PO QDAY Qty: 30 0RF diltiazem HCl 240 mg Tablet Extended Release 24 Hr 240 mg PO QDAY furosemide [Lasix] 40 mg tablet 40 mg PO QAM Qty: 30 0RF losartan 50 mg tablet 50 mg PO QDAY Qty: 30 1RF atorvastatin 20 mg tablet 20 mg PO HS benzonatate 100 mg capsule 100 mg PO TID Patient Comments: TAKE 1 CAPSULE BY MOUTH TWICE DAILY insulin aspart U-100 [Novolog FlexPen U-100 Insulin] 100 unit/mL (3 mL) insulin pen 6 unit SUBCUT TIDWM Patient Comments: INJECT 10 UNITS UNDER THE SKIN THREE TIMES DAILY WITH MEALS hydroxyzine pamoate 25 mg capsule 25 mg PO HS Qty: 30 0RF pentosan polysulfate sodium 100 mg capsule 100 mg PO TID Qty: 90 3RF cefdinir 300 mg capsule 300 mg PO BID Qty: 14 0RF clonidine HCl 0.1 mg tablet 0.1 mg PO BID Qty: 60 1RF Referrals: [facility] [Outside] - In 1 week No Primary/Family,Physician [Primary Care Provider] - In 1 week Problem List Clinical Impression: Anxiety reaction Patient/Caregiver Discharge Instructions Discharge Activity: activity as tolerated Education Materials: Boosting Your Mental Health, Journaling for Mental Health, Anxiety Disorders Tx Therapy, Understanding Anxiety Disorders, Treating Anxiety Disorders ..., ED Anxiety Reaction Additional Instructions: Please return to the emergency department for any worsening or any further medical problems. Otherwise you should follow-up with your primary care doctor in the next several days. Print Language: Swedish Stand Alone Forms: Grace Award Info., Patient Portal Info Letter
[2024-04-24 00:19] VITALS: RESP 18
== END 2024-04-24 00:20 | disposition home or self-care (01) ==
PROVIDERS: Emergency Provider Emergency Medicine
DX: F41.1 Generalized anxiety disorder (principal); I11.0 Hypertensive heart disease with heart failure; E11.9 Type 2 diabetes mellitus without complications; E78.5 Hyperlipidemia, unspecified; I50.9 Heart failure, unspecified
CPT/HCPCS: 36415; 71046; 80053; 80307; 83690; 83880; 84484; 85025; 93005; 99283; J3490; A9270

== ENCOUNTER 2024-04-26 10:53 | Emergency (ER) | payer MEDICARE, MEDICAID, SELFPAY ==
[2024-04-26 11:05] VITALS: BP 196/83; PULSE 76; RESP 18; TEMP 36.9; O2SAT 97; BMI 31.1
--- NOTE | 2024-04-26 11:14 | EKG_ITS ---
[facility] Test Date: 2024-04-26 Pat Name: TYREE NOLASCO Department: Room: - Gender: Female [employer] Consultant: : 1940 Requested By: Tristian Simeon Order Number: [id number] Reading MD: Tristian Simeon Measurements Intervals [place] Rate: 76 P: 44 MA: 152 QRS: 3 QRSD: 109 T: 55 QT: 384 QTc: 434 Interpretive Statements SINUS RHYTHM NONSPECIFIC T-WAVE ABNORMALITY Compared to ECG 04/23/2024 21:14:16 No significant changes /store/S0/[id number]/ecg/[id number].pdf
--- NOTE | 2024-04-26 11:14 | PD.EDRME ---
Rapid Medical Screening Exam E Arrival date/time: 04/26/24 10:53 83-year-old female with a history of hyperlipidemia, hypertension, type 2 diabetes presents to the emergency room with a chief complaint of a headache, nausea, vomiting, lower abdominal cramping x 2 days. Patient states she was sent over by Dr. Larry due to her blood pressure. I have greeted and performed a focused initial assessment of this patient. A comprehensive ED assessment and evaluation of the patient, analysis of all test results, and completion of the medical decision making process will be conducted by additional ED providers. Chief Complaint: Recheck/Abnormal Lab/Rx Vital signs: Vital Signs Temperature 98.4 F 04/26/24 11:05 Pulse Rate 76 04/26/24 11:05 Respiratory Rate 18 04/26/24 11:05 Blood Pressure 196/83 H 04/26/24 11:05 Pulse Oximetry (%) 97 04/26/24 11:05 Oxygen Delivery Method Room Air 04/26/24 11:05 Vital signs reviewed by provider: Yes
[2024-04-26 11:59] LABS: Basophils # (Auto) 0.1 Thou/mm3 (0.0-0.2); Basophils % (Auto) 1 % (0-2.5); Eosinophils # (Auto) 0.1 Thou/mm3 (0.0-0.5); Eosinophils % (Auto) 1 % (0-10); Hemoglobin 11.2 g/dL (12.0-16.0); Immature Granulocytes % (Auto) 0 % (0-0); Immature Granulocytes Auto 0.03 Thou/mm3 (0.00-0.00); Lymphocytes % (Auto) 20 % (10-50); Mean Corpuscular HGB Conc 33.9 g/dl (31.0-37.0); Mean Corpuscular Hemoglobin 29.9 pg (25.0-35.0); Mean Corpuscular Volume 88 fL (80-100); Monocytes # (Auto) 0.4 Thou/mm3 (0.0-0.8); Monocytes % (Auto) 4 % (0-12); Neutrophils # (Auto) 7.7 Thou/mm3 (1.8-7.7); Neutrophils % (Auto) 75 % (37-80); Nucleated Red Blood Cell % 0 /100 WBC (0); Platelet Count 266 Thou/mm3 (140-440); RDW Standard Deviation 41.5 fL (36.4-46.3); Red Blood Count 3.75 Miln/mm3 (4.00-5.20); White Blood Count 10.4 Thou/mm3 (3.6-11.0)
[2024-04-26 12:21] LABS: B-Type Natriuretic Peptide 59 pg/mL (0-100)
[2024-04-26 12:33] LABS: Alanine Aminotransferase 12 U/L (10-49); Albumin, Serum 4.1 gm/dL (3.4-4.8); Albumin/Globulin Ratio 1.5 (1.2-2.2); Alkaline Phosphatase 135 U/L (46-116); Anion Gap 5 (7-16); Aspartate Amino Transferase 13 U/L (0-34); BUN/Creatinine Ratio 18 Ratio (12-20); Bilirubin,Total 0.3 mg/dL (0.3-1.2); Blood Urea Nitrogen 45 mg/dL (9-23); Calcium 9.6 mg/dL (8.3-10.6); Calcium (Corrected) 9.6 mg/dL (8.5-10.1); Carbon Dioxide 28.8 mMol/L (20.0-31.0); Chloride 102 mMol/L (98-107); Creatinine (Component) 2.5 mg/dL (0.6-1.3); Estimated Creatinine Clearance 16.3 mL/min (>60); Globulin 2.8 gm/dL (2.3-3.5); Glucose 348 mg/dL (74-106); Magnesium 2.2 mg/dL (1.6-2.6); Osmolality,Calculated 297 (275-295); Potassium 4.1 mMol/L (3.4-5.1); Sodium 136 mMol/L (136-145); Total Protein 6.9 gm/dL (5.7-8.2); Troponin I < 0.020 ng/mL (0.0-0.045); eGFR 19 See Note
[2024-04-26 13:53] LABS: Collection Type, Urine Clean Catch
[2024-04-26 14:14] LABS: Bilirubin,Urine Negative (Negative); Blood,Urine Negative (Negative); Clarity,Urine Clear (Clear/Hazy); Color,Urine Lt-Yellow (Lt Yel-Yel); Glucose, Urine 4+ (Negative); Ketones,Urine Negative (Negative); Leukocyte Esterase,Urine Positive (Negative); Nitrite,Urine Negative (Negative); PH,Urine 6.5 (5.0-7.0); Protein,Urine 3+ (Neg - Trace); RBC,Urine 3 /hpf (0-3); Specific Gravity,Urine 1.017 (1.001-1.035); Squamous Epithelial Cell,Urine 3 /hpf (0-5); Urobilinogen,Urine Negative mg/dL (0.0-1.0); WBC,Urine 116 /hpf (0-5)
[2024-04-26 15:35] VITALS: BP 186/80; PULSE 71; RESP 16; TEMP 37.1; O2SAT 98
[2024-04-26 17:11] VITALS: BP 191/96; PULSE 84; RESP 18; TEMP 37.1; O2SAT 99
--- NOTE | 2024-04-26 17:33 | EDNOTE_ITS ---
<Statement entered by Radha Lopez MD - 04/27/24 07:26> As co-signing physician, I was present and available for consult prn. I concur with the plan and care as documented by the midlevel provider. ED Recheck Abnl Lab Rx-RME/HPI General Chief Complaint: Recheck/Abnormal Lab/Rx Stated Complaint: HIGH BP, N/V, [place] Time Seen by Provider: 04/26/24 17:32 Arrival date/time: 04/26/24 10:53 RME / HPI RME / HPI narrative: 83-year-old female with a history of hyperlipidemia, hypertension, type 2 diabetes presents to the emergency room with a chief complaint of a headache, nausea, vomiting, lower abdominal cramping x 2 days. Patient states she was sent over by Dr. Larry due to her blood pressure. Patient denies any chest pain denies any fever denies any other complaints no medication was taken prior to ar rival. Related Data Home Medications ?Medication ?Instructions ?Recorded ?Confirmed loratadine 10 mg tablet 10 mg PO QDAY 04/22/2108/02 aspirin 81 mg tablet,delayed 81 mg PO DAILY 06/20/21 0 08/03/23 release Held on 09/22/23. Instructions: Resume on 09/29/23. Please hold until you see your PCP omeprazole 20 mg capsule,delayed 20 mg PO QDAY 2 08/03/23 release insulin degludec 200 unit/mL (3 45 unit subcut QDAY 08/03/23 mL) subcutaneous pen (Tresiba FlexTouch U-200 insulin) atorvastatin 20 mg tablet 20 mg PO HS 03/11/22 4 benzonatate 100 mg capsule 100 mg PO TID 03/11/2207/14 insulin aspart U-100 100 unit/mL 6 unit subcut TIDWM 1 05/12/21 08/03/23 (3 mL) subcutaneous pen (Novolog FlexPen U-100 Insulin aspart) amitriptyline 25 mg tablet 25 mg PO QDAY PRN Anxiety 1 03/27/22 08/03/23 diltiazem HCl 240 mg 240 mg PO QDAY 05/19/2307/14 tablet,extended release 24 hr Held on 09/21/23. Instructions: Resume on 10/05/23. Please f/u with your PCP before resuming this medicine Previous Rx's ?Medication ?Instructions ?Recorded amlodipine 10 mg tablet 10 mg PO QDAY #30 tabs 01/27 furosemide 40 mg tablet (Lasix) 40 mg PO QAM #30 tabs 05/25/23 Held on 09/21/23. Instructions: Resume on 09/28/23. Please f/u with your PCP before starting this medicine losartan 50 mg tablet 50 mg PO QDAY #30 tabs 05/24 hydroxyzine pamoate 25 mg capsule 25 mg PO HS #30 caps 06/25/23 pentosan polysulfate sodium 100 mg 100 mg PO TID #90 c aps 09/21/23 capsule cefdinir 300 mg capsule 300 mg PO BID #14 caps 04/12 clonidine HCl 0.1 mg tablet 0.1 mg PO BID #60 tabs nitrofurantoin 100 mg PO Q12H 7 days #14 ca ps 04/26/24 monohydrate/macrocrystals 100 mg capsule (Macrobid) Allergies Allergy/AdvReac Type Severity Reaction Status Date / Time amoxicillin Allergy Severe Vomiting Verified 04/11/24 15:09 codeine Allergy Severe PALPITATION Verified 04/11/24 15:09 S diazepam Allergy Severe RAPID Verified 04/11/24 15:09 HEARTRATE hydrocodone Allergy Severe Vomiting Verified 04/11/24 15:09 hydromorphone Allergy Severe Agitated Verified 04/11/24 15:09 ibuprofen Allergy Severe BLEEDING Verified 04/11/24 15:09 IN STOMACH PER PT meperidine Allergy Severe RAPID Verified 04/11/24 15:09 HEARTRATE morphine Allergy Severe RAPID Verified 04/11/24 15:09 HEARTRATE propoxyphene Allergy Severe RAPID Verified 04/11/24 15:09 HEARTRATE adhesive tape AdvReac Severe Hives Verified 04/11/24 15:09 levofloxacin AdvReac Severe VOMITS Verified 04/11/24 15:09 Review of Systems Review of Systems Narrative Review of Systems: Review of system reviewed and within normal limits except mentioned in HPI ED Exam Narrative Physical exam: VITAL SIGNS: Reviewed. GENERAL APPEARANCE: Alert and interactive, follows commands, no acute distress, HEAD AND FACE: Non-traumatic. ENT: PERRL, pink conjunctivitis, eyelid no trauma, Mucous membrane moist. NECK: Supple, nontender, no nuchal rigidity. CHEST: No tenderness, no crepitus, no paradoxical movement, no retractions. LUNGS: Clear, well ventilated, symmetric, no rales, no wheezing, no ronchi, no stridor, good breath sounds bilaterally. HEART: Regular rate, regular rhythm, no murmur, no gallops. ABDOMEN: Soft, positive bowel sounds, nondistended, no guarding, nontender, no rebound, no masses, RECTAL: Deferred. GENITAL: Deferred. NEUROLOGICAL: Gross motor function intact sensory function intact, Appropriate for age. MUSCULOSKELETAL: low back nontender, full range of motion. EXTREMITIES: Nontender, full range of motion. SKIN: Color pink, dry, no rash, no lacerations, no abrasions, no contusions. LYMPHATICS: Deferred. Course Quality Measures none Orders Category Date Time Status EKG (ED ONLY) *Do not use* NOW Care 04/26/24 11:14 Completed EKG (ED Only) Stat Exams 04/26/24 11:14 Draft B-Type Natriuretic Peptide Stat Lab 04/26/24 11:33 Completed CBC Stat Lab 04/26/24 11:33 Completed Comprehensive Metabolic Panel Stat Lab 04/26/24 11:33 Completed Magnesium Stat Lab 04/26/24 11:33 Completed Partial Thromboplastin Time Stat Lab 04/26/24 11:33 Completed Prothrombin Time with INR Stat Lab 04/26/24 11:33 Completed Troponin I Stat Lab 04/26/24 11:33 Completed Urinalysis Stat Lab 04/26/24 13:43 Completed Nitrofurantoin Macro [Macrobid] Med 04/26/24 17:32 Discontinued 100 mg PO X1 ONE cloNIDine HCL [Catapres] Med 04/26/24 17:32 Discontinued 0.2 mg PO X1 ONE Vital Signs Vital signs: Vital Signs Temperature 98.4 F 04/26/24 11:05 Pulse Rate 76 04/26/24 11:05 Respiratory Rate 18 04/26/24 11:05 Blood Pressure 196/83 H 04/26/24 11:05 Pulse Oximetry (%) 97 04/26/24 11:05 Oxygen Delivery Method Room Air 04/26/24 11:05 Recheck / Abnormal Lab / Rx MDM Narrative MDM Narrative:: 83-year-old female with a history of hyperlipidemia, hypertension, type 2 diabetes presents to the emergency room with a chief complaint of a headache, nausea, vomiting, lower abdominal cramping x 2 days. Patient states she was sent over by Dr. Larry due to her blood pressure. Patient denies any chest pain denies any fever denies any other complaints no medication was taken prior to arrival. Patient's workup all came back unremarkable except for UTI. And chronic kidney disease creatinine 2.5 which is her baseline. Troponin is normal. EKG showed normal sinus rhythm, ventricular rate of 74 bpm, no ST segment elevation depression noted. Patient received clonidine 0.2 mg p.o. x 1 and Macrobid. Her blood pressure was noted to be 171/56 prior to discharge taken by me. Patient appears nontoxic and hemodynamically stable. Patient discharged home and instructed to follow-up with primary care provider in 24 to 48 hours. Instructed to return to the emergency department immediately if worsening of symptoms Patient data External records reviewed:: None Clinical information provided by:: none Social determinants that could affect healthcare access:: none Patient has the following chronic illnesses:: Hypertension, chronic kidney disease, How is presenting disease/condition affected by chronic disease/condition?: exacerbated by Evaluation data The following diagnostics were reviewed and interpreted by me:: lab results and EKG tracing(s) Lab and/or radiology exams considered but not ordered:: None Interpretation Summary: See results in [facility] Medications / Prescriptions Medications or Prescriptions considered but not ordered:: None Medication administrations:: Medication Administration History Discontinued Medications Clonidine (Clonidine Hcl 0.1 Mg Tablet) 0.2 mg PO X1 ONE Stop: 04/26/24 17:33 Last Admin: 04/26/24 17:59 Dose: 0.2 mg Documented By: Nitrofurantoin Macrocrystals (Nitrofurantoin Macro 100 Mg Capsule) 100 mg PO X1 ONE Stop: 04/26/24 17:33 Last Admin: 04/26/24 18:01 Dose: 100 mg Documented By: Clonidine and Macrobid Consultations Consultation(s) initiated? (list below): No Diagnosis Recheck Differential Diagnosis: other (Hypertensive urgency hypertensive emergency, uti) Most likely diagnosis given after review of the tests above:: Hypertension, UTI Admission Indicated Admission indicated?: not indicated Admission Request Was there a request for admission?: No Disposition Plan Disposition Plan: Discharge Discharge Attestation Discharge Attestation: The patient was given an opportunity to ask questions and understood the discharge instructions. Discharge instructions specifically effects, indications for sooner follow up or return to the emergency department, and the expected course of current diagnosis. Patient condition: Stable Discharge Plan Plan Patient Disposition: HOME (Self Care) Disposition Comment: Stable Prescriptions/Referrals Prescriptions/Med Rec: New nitrofurantoin monohyd/m-cryst [Macrobid] 100 mg capsule 100 mg PO Q12H 7 Days Qty: 14 0RF Rx Instructions: must administer with a meal/food No Action loratadine 10 mg tablet 10 mg PO QDAY Patient Comments: TAKE 1 TABLET BY MOUTH EVERY DAY insulin degludec [Tresiba FlexTouch U-200] 200 unit/mL (3 mL) insulin pen 45 unit SUBCUT QDAY aspirin 81 mg Tablet,Delayed Release (Dr/Ec) 81 mg PO DAILY omeprazole 20 mg Capsule,Delayed Release(Dr/Ec) 20 mg PO QDAY amitriptyline 25 mg tablet 25 mg PO QDAY PRN (Reason: Anxiety) amlodipine 10 mg tablet 10 mg PO QDAY Qty: 30 0RF diltiazem HCl 240 mg Tablet Extended Release 24 Hr 240 mg PO QDAY furosemide [Lasix] 40 mg tablet 40 mg PO QAM Qty: 30 0RF losartan 50 mg tablet 50 mg PO QDAY Qty: 30 1RF atorvastatin 20 mg tablet 20 mg PO HS benzonatate 100 mg capsule 100 mg PO TID Patient Comments: TAKE 1 CAPSULE BY MOUTH TWICE DAILY insulin aspart U-100 [Novolog FlexPen U-100 Insulin] 100 unit/mL (3 mL) insulin pen 6 unit SUBCUT TIDWM Patient Comments: INJECT 10 UNITS UNDER THE SKIN THREE TIMES DAILY WITH MEALS hydroxyzine pamoate 25 mg capsule 25 mg PO HS Qty: 30 0RF pentosan polysulfate sodium 100 mg capsule 100 mg PO TID Qty: 90 3RF cefdinir 300 mg capsule 300 mg PO BID Qty: 14 0RF clonidine HCl 0.1 mg tablet 0.1 mg PO BID Qty: 60 1RF Referrals: Collin Herrera PA-C [Primary Care Provider] - In 1 week Problem List Clinical Impression: UTI (urinary tract infection), HTN (hypertension) Patient/Caregiver Discharge Instructions Discharge Activity: activity as tolerated Education Materials: Understanding Urinary Tract ... Additional Instructions: Thank you for the opportunity for serving you today. You are stable for discharged . You are advised to: Follow-up with your PCP in 1 to 2 days Return to ED for worsening of symptoms Increase oral fluids Take medication as prescribed Print Language: Panamanian Stand Alone Forms: Grace Award Info., Patient Portal Info Letter PA/ESTRELLITA Supervising Physician PA/ESTRELLITA Supervising Physician: MD John
[2024-04-26 17:59] VITALS: BP 191/96; PULSE 84
[2024-04-26] MEDS: cloNIDine HCL 0.1 MG TABLET 0.2 MG PO (17:59)
[2024-04-26] MEDS: NITROFURANTOIN MACRO 100 MG CAPSULE PO (18:01)
== END 2024-04-26 18:20 | disposition home or self-care (01) ==
PROVIDERS: Nurse Practitioner Family; Emergency Provider Emergency Medicine; PCP Physician Assistant
DX: N39.0 Urinary tract infection, site not specified (principal); I10 Essential (primary) hypertension; E11.9 Type 2 diabetes mellitus without complications; E78.5 Hyperlipidemia, unspecified
CPT/HCPCS: 36415; 80053; 81001; 83735; 83880; 84484; 85025; 85610; 85730; 93005; 99283; A9270

== ENCOUNTER 2024-04-27 10:40 | Observation (INO) | payer MEDICARE, MEDICAID, SELFPAY ==
[2024-04-27] VITALS (9 sets, daily range): BP systolic 156–197; BP diastolic 75–96; PULSE 68–75; RESP 17–97; TEMP 36.2–37.1; O2SAT 95–99; BMI 31.1; BMI 27.1
--- NOTE | 2024-04-27 11:04 | EDRME_ITS ---
Rapid Medical Screening Exam [facility] Arrival date/time: 04/27/24 10:40 83-year-old female with a history of hyperlipidemia, hypertension, type 2 diabetes presents to the emergency room with a chief complaint of a headache, nausea, blurry vision, lower abdominal cramping x 3 days. Patient states she was seen here yesterday and was discharged with a diagnosis of urinary tract infection and sent home with antibiotics. Patient states today she woke up with blurry vision neck pain and a headache. I have greeted and performed a focused initial assessment of this patient. A comprehensive ED assessment and evaluation of the patient, analysis of all test results, and completion of the medical decision making process will be conducted by additional ED providers. Chief Complaint: Abdominal Pain Vital signs: Vital Signs Temperature 97.7 F 04/27/24 10:57 Pulse Rate 70 04/27/24 10:57 Respiratory Rate 17 04/27/24 10:57 Blood Pressure 162/75 H 04/27/24 10:57 Pulse Oximetry (%) 99 04/27/24 10:57 Oxygen Delivery Method Room Air 04/27/24 10:57 Vital signs reviewed by provider: Yes
--- NOTE | 2024-04-27 11:06 | EKG_ITS ---
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
--- NOTE | 2024-04-27 11:40 | PC.CC ---
Patient is a 83 year-old female who presents to the hospital for headache, blurry vision, nausea, and abd pain. ASWBrittney made [id number] contact with patient. ASW introduced self, role, and reason for visit. Patient appeared alert and oriented to self, location, and situation. Patient was pleasant and engaged in initial assessment. Patient confirmed information on demographics and reports to living alone. Patient reports she would [facility] to [facility] a [facility]. [facility] and this would be her preference if possible. Patient reports she is having difficulty with ambulation even with the use of the walker. Patient needs assistance in completing her ADLs and reports that her granddaughter and daughter help her. Upon discharge patient would like to go to SNF. AUTOMOTIVE PRODUCT ENGINEER Lilliam to place order to PT evaluation. ASW to complete PASSR. guest services ambassador to follow up.
--- NOTE | 2024-04-27 11:42 | EDNOTE_ITS ---
<Statement entered by Radha Lopez MD - 04/27/24 17:41> As co-signing physician, I was present and available for consult prn. I concur with the plan and care as documented by the midlevel provider. ED Abdominal Pain RME/HPI General Chief Complaint: Abdominal Pain Stated complaint: HEADACHE, BLURRY VISION, NAUSEA, ABD PAIN TODAY Time seen by provider: 04/27/24 11:16 Arrival date/time: 04/27/24 10:40 RME / HPI RME / HPI narrative: 83-year-old female with a history of hyperlipidemia, hypertension, type 2 diabetes presents to the emergency room with a chief complaint of a headache, nausea, blurry vision, lower abdominal cramping x 3 days. Patient states she was seen here yesterday and was discharged with a diagnosis of urinary tract infection and sent home with antibiotics. Patient states today she woke up with blurry vision neck pain and a headache. Patient also complained of dark-colored stool for the last few days. Patient wanted to go to a assisted. Abdominal surgery includes hysterectomy, cholecystectomy, and appendectomy Related Data Home Medications ?Medication ?Instructions ?Recorded ?Confirmed loratadine 10 mg tablet 10 mg PO QDAY 04/22/2108/02 aspirin 81 mg tablet,delayed 81 mg PO DAILY 06/20/21 0 08/03/23 release Held on 09/22/23. Instructions: Resume on 09/29/23. Please hold until you see your PCP omeprazole 20 mg capsule,delayed 20 mg PO QDAY 2 08/03/23 release insulin degludec 200 unit/mL (3 45 unit subcut QDAY 08/03/23 mL) subcutaneous pen (Tresiba FlexTouch U-200 insulin) atorvastatin 20 mg tablet 20 mg PO HS 03/11/22 4 benzonatate 100 mg capsule 100 mg PO TID 03/11/2207/14 insulin aspart U-100 100 unit/mL 6 unit subcut TIDWM 1 05/12/21 08/03/23 (3 mL) subcutaneous pen (Novolog FlexPen U-100 Insulin aspart) amitriptyline 25 mg tablet 25 mg PO QDAY PRN Anxiety 1 03/27/22 08/03/23 diltiazem HCl 240 mg 240 mg PO QDAY 05/19/23 05/04/07 tablet,extended release 24 hr Held on 09/21/23. Instructions: Resume on 10/05/23. Please f/u with your PCP before resuming this medicine Previous Rx's ?Medication ?Instructions ?Recorded amlodipine 10 mg tablet 10 mg PO QDAY #30 tabs 01/27 furosemide 40 mg tablet (Lasix) 40 mg PO QAM #30 tabs 05/25/23 Held on 09/21/23. Instructions: Resume on 09/28/23. Please f/u with your PCP before starting this medicine losartan 50 mg tablet 50 mg PO QDAY #30 tabs 05/24 hydroxyzine pamoate 25 mg capsule 25 mg PO HS #30 caps 06/25/23 pentosan polysulfate sodium 100 mg 100 mg PO TID #90 c aps 09/21/23 capsule cefdinir 300 mg capsule 300 mg PO BID #14 caps 04/12 clonidine HCl 0.1 mg tablet 0.1 mg PO BID #60 tabs nitrofurantoin 100 mg PO Q12H 7 days #14 ca ps 04/26/24 monohydrate/macrocrystals 100 mg capsule (Macrobid) Allergies Allergy/AdvReac Type Severity Reaction Status Date / Time amoxicillin Allergy Severe Vomiting Verified 04/27/24 10:43 codeine Allergy Severe PALPITATION Verified 04/27/24 10:43 S diazepam Allergy Severe RAPID Verified 04/27/24 10:43 HEARTRATE hydrocodone Allergy Severe Vomiting Verified 04/27/24 10:43 hydromorphone Allergy Severe Agitated Verified 04/27/24 10:43 ibuprofen Allergy Severe BLEEDING Verified 04/27/24 10:43 IN STOMACH PER PT meperidine Allergy Severe RAPID Verified 04/27/24 10:43 HEARTRATE morphine Allergy Severe RAPID Verified 04/27/24 10:43 HEARTRATE propoxyphene Allergy Severe RAPID Verified 04/27/24 10:43 HEARTRATE adhesive tape AdvReac Severe Hives Verified 04/27/24 10:43 levofloxacin AdvReac Severe VOMITS Verified 04/27/24 10:43 Review of Systems Review of Systems Narrative Review of Systems: Review of system reviewed and within normal limits except mentioned in HPI ED Exam Narrative Physical exam: VITAL SIGNS: Reviewed. GENERAL APPEARANCE: Alert and interactive, follows commands, no acute distress, HEAD AND FACE: Non-traumatic. ENT: PERRL, pink conjunctivitis, eyelid no trauma, Mucous membrane moist. NECK: Supple, nontender, no nuchal rigidity. CHEST: No tenderness, no crepitus, no paradoxical movement, no retractions. LUNGS: Clear, well ventilated, symmetric, no rales, no wheezing, no ronchi, no stridor, good breath sounds bilaterally. HEART: Regular rate, regular rhythm, no murmur, no gallops. ABDOMEN: Soft, positive bowel sounds, nondistended, no guarding, nontender, no rebound, no masses, RECTAL: Deferred. GENITAL: Deferred. NEUROLOGICAL: Gross motor function intact sensory function intact, Appropriate for age. MUSCULOSKELETAL: low back nontender, full range of motion. EXTREMITIES: Nontender, full range of motion. SKIN: Color pink, dry, no rash, no lacerations, no abrasions, no contusions. LYMPHATICS: Deferred. Course Quality Measures none Orders Category Date Time Status Patient Condition Routine Admission 04/27/24 15:[address] in Observation Status Routine Admission 04/27/24 16:27 Active COVID-19 Screening Questionnaire NOW Care 04/27/24 14:38 Active Decision to Admit X1 Care 04/27/24 14:38 Completed EKG (ED ONLY) *Do not use* NOW Care 04/27/24 11:06 Completed Miscellaneous Nursing Order NOW Care 04/27/24 16:31 Active NPO NOW Care 04/27/24 16:30 Active Notify provider NEEDED Care 04/27/24 15:39 Active Obtain weight daily Care 04/27/24 16:27 Active Occult Blood,Stool (Nursing) ONCE Care 04/27/24 11:41 Active Seizure precautions NEEDED Care 04/27/24 16:27 Active Sequential Compression Device QSHIFT Care 04/27/24 16:26 Active Consult to Gastroenterology Stat Cons 04/27/24 14:31 Ordered Referral Physical Therapy Stat Cons 04/27/24 11:22 Completed Diet NPO (NOW) Diet 04/27/24 16:[address] abdomen pelvis wo con Stat Exams 04/27/24 12:[address] head/brain wo con Stat Exams 04/27/24 12:06 Completed EKG (ED Only) Stat Exams 04/27/24 11:06 Draft B-Type Natriuretic Peptide Stat Lab 04/27/24 11:39 Completed CBC AM DRAW Lab 04/28/24 05:00 Ordered CBC AM DRAW Lab 04/29/24 05:00 Ordered CBC AM DRAW Lab 04/30/24 05:00 Ordered CBC Stat Lab 04/27/24 11:39 Completed Comprehensive Metabolic Panel AM DRAW Lab 04/28/24 05:00 Ordered Comprehensive Metabolic Panel AM DRAW Lab 04/29/24 05:00 Ordered Comprehensive Metabolic Panel AM DRAW Lab 04/30/24 05:00 Ordered Comprehensive Metabolic Panel Stat Lab 04/27/24 11:39 Completed Lipid Panel AM DRAW Lab 04/28/24 05:00 Ordered Magnesium AM DRAW Lab 04/28/24 05:00 Ordered Magnesium AM DRAW Lab 04/29/24 05:00 Ordered Magnesium AM DRAW Lab 04/30/24 05:00 Ordered Magnesium Stat Lab 04/27/24 11:39 Completed Occult Blood, Stool (LAB) Stat Lab 04/27/24 12:12 Completed Partial Thromboplastin Time Stat Lab 04/27/24 11:39 Completed Phosphorous AM DRAW Lab 04/28/24 05:00 Ordered Phosphorous AM DRAW Lab 04/29/24 05:00 Ordered Phosphorous AM DRAW Lab 04/30/24 05:00 Ordered Prothrombin Time with INR Stat Lab 04/27/24 11:39 Completed Thyroid Stimulating Hormone AM DRAW Lab 04/28/24 05:00 Ordered Troponin I Stat Lab 04/27/24 11:39 Completed Urinalysis Stat Lab 04/27/24 13:54 Completed Acetaminophen Tab [Tylenol ES Tab] Med 04/27/24 11:41 Discontinued 1,000 mg PO X1 ONE Acetaminophen Tab [Tylenol Tab] Med 04/27/24 16:26 Active 650 mg PO Q6H PRN Albuterol/Ipratr Rt Mary [Duoneb Rt Mary] Med 04/27/24 16:26 Active 3 ml INH Q4HR PRN Ondansetron Inj [Zofran Inj] Med 04/27/24 16:26 Active 4 mg IV Q6H PRN Pantoprazole Inj [Protonix Inj] Med 04/28/24 09:00 Active 40 mg IV BID Pantoprazole Inj [Protonix Inj] Med 04/27/24 12:04 Discontinued 80 mg IV X1 ONE Sodium Chloride 0.9% 1000 ml [Ns] 1,000 ml Med 04/27/24 16:34 Ordered IV 80 mls/hr hydrALAZINE HCL [Apresoline] Med 04/27/24 11:41 Discontinued 50 mg PO X1 ONE mg Hyd/Al Hyd/Arya Susp [Maalox Susp] Med 04/27/24 11:41 Discontinued 30 ml PO X1 ONE Code Status Routine Oth 04/27/24 15:39 Ordered Oxygen Delivery PRN RT 04/27/24 16:26 Active Vital Signs Vital signs: Vital Signs Temperature 97.7 F 04/27/24 10:57 Pulse Rate 70 04/27/24 10:57 Respiratory Rate 17 04/27/24 10:57 Blood Pressure 162/75 H 04/27/24 10:57 Pulse Oximetry (%) 99 04/27/24 10:57 Oxygen Delivery Method Room Air 04/27/24 10:57 Abdominal Pain MDM MDM Narrative MDM Narrative:: 83-year-old female with a history of hyperlipidemia, hypertension, type 2 diabetes presents to the emergency room with a chief complaint of a headache, nausea, blurry vision, lower abdominal cramping x 3 days. Patient states she was seen here yesterday and was discharged with a diagnosis of urinary tract infection and sent home with antibiotics. Patient states today she woke up with blurry vision neck pain and a headache. Patient also complained of dark-colored stool for the last few days. Patient wanted to go to a assisted. Abdominal surgery includes hysterectomy, cholecystectomy, and appendectomy. Patient's workup all came back unremarkable. Except for hemoglobin of 10.7 hematocrit of 31.4 platelets is normal CMP showed creatinine of 2.4 BUN of 46 which is Her baseline. Blood sugar 190. No sign of diabetic ketoacidosis. Urinalysis positive for UTI. Stool occult blood was done by me and tested positive strongly. CT scan of the head came back unremarkable CT scan of the abdomen and pelvis also came back unremarkable. EKG showed normal sinus rhythm, ventricular rate of 77 bpm, no ST segment elevation or depression noted. Consulted Dr. Vasquez, discussed the case, who advised me to keep the patient for upper GI bleed. Spoke with hospitalist who admitted the patient. Patient data External records reviewed:: None Clinical information provided by:: patient Social determinants that could affect healthcare access:: none Patient has the following chronic illnesses:: Chronic kidney disease, hypertension, recurrent UTI How is presenting disease/condition affected by chronic disease/condition?: exacerbated by Evaluation data The following diagnostics were reviewed and interpreted by me:: lab results, radiology exam(s) and EKG tracing(s) Lab and/or radiology exams considered but not ordered:: None Interpretation Summary: EKG showed normal sinus rhythm, ventricular rate of 77 bpm, no ST segment elevation or depression noted. The rest of the labs and imaging see results in [facility] Medications / Prescriptions Medications or Prescriptions considered but not ordered:: None Medication administrations:: Medication Administration History Acetaminophen (Acetaminophen 325 Mg Tablet) 650 mg PO Q6H PRN PRN Reason: Fever >100.3 or pain Stop: 05/27/24 16:25 Albuterol/Ipratropium (Albuterol/Ipratropium (Duoneb) Rt Mary 3 Ml Nebu) 3 ml INH Q4HR PRN PRN Reason: SHORTNESS OF BREATH OR WHEEZE Stop: 05/27/24 16:25 Sodium Chloride (Ns) 1,000 mls @ 80 mls/hr IV .[id number] [facility] Stop: 04/28/24 16:33 Ondansetron HCl (Ondansetron Inj 2 Mg/Ml Inj 2 Ml) 4 mg IV Q6H PRN; Protocol PRN Reason: NAUSEA OR VOMITING Stop: 05/27/24 16:25 Pantoprazole Sodium (Pantoprazole Inj 40 Mg Vial) 40 mg IV BID [facility] Stop: 05/28/24 08:59 Discontinued Medications Acetaminophen (Acetaminophen 500 Mg Tablet) 1,000 mg PO X1 ONE Stop: 04/27/24 11:42 Last Admin: 04/27/24 12:36 Dose: 1,000 mg Documented By: GM Al Hydrox/Mg Hydrox/Simethicone (Mg Hyd/Al Hyd/Arya (Maalox Reg) Susp 30 Ml Udc) 30 ml PO X1 ONE Stop: 04/27/24 11:42 Last Admin: 04/27/24 12:39 Dose: 30 ml Documented By: GM Hydralazine HCl (Hydralazine Hcl 25 Mg Tablet) 50 mg PO X1 ONE Stop: 04/27/24 11:42 Last Admin: 04/27/24 12:36 Dose: 50 mg Documented By: GM Pantoprazole Sodium (Pantoprazole Inj 40 Mg Vial) 80 mg IV X1 ONE Stop: 04/27/24 12:05 Last Admin: 04/27/24 12:39 Dose: 80 mg Documented By: GM IV Protonix, Maalox, hydralazine, Tylenol Consultations Consultation(s) initiated? (list below): Yes Consultation #1 (Physician, Specialty, Details): Dr. Vasquez, thank you Diagnosis Differential diagnosis abdominal pain: abdominal pain, constipation, pancreatitis and other (Upper GI bleed) Most likely diagnosis given after review of the tests above:: Upper GI bleed Admission Indicated Admission indicated?: indicated Admission Request Was there a request for admission?: Yes Admission Attestation Admission request attestation: Discussed case with [Dr Foster] from Hospitalist service regarding admission. Discussed patients ED course, exam findings, labs, and radiology results. The Hospitalist [agrees] to accept the patient for admission. Disposition Plan Disposition Plan: Admit Discharge Plan Prescriptions/Referrals Prescriptions/Med Rec: No Action loratadine 10 mg tablet 10 mg PO QDAY Patient Comments: TAKE 1 TABLET BY MOUTH EVERY DAY insulin degludec [Tresiba FlexTouch U-200] 200 unit/mL (3 mL) insulin pen 45 unit SUBCUT QDAY aspirin 81 mg Tablet,Delayed Release (Dr/Ec) 81 mg PO DAILY omeprazole 20 mg Capsule,Delayed Release(Dr/Ec) 20 mg PO QDAY amitriptyline 25 mg tablet 25 mg PO QDAY PRN (Reason: Anxiety) amlodipine 10 mg tablet 10 mg PO QDAY Qty: 30 0RF diltiazem HCl 240 mg Tablet Extended Release 24 Hr 240 mg PO QDAY furosemide [Lasix] 40 mg tablet 40 mg PO QAM Qty: 30 0RF losartan 50 mg tablet 50 mg PO QDAY Qty: 30 1RF nitrofurantoin monohyd/m-cryst [Macrobid] 100 mg capsule 100 mg PO Q12H 7 Days Qty: 14 0RF Rx Instructions: must administer with a meal/food atorvastatin 20 mg tablet 20 mg PO HS benzonatate 100 mg capsule 100 mg PO TID Patient Comments: TAKE 1 CAPSULE BY MOUTH TWICE DAILY insulin aspart U-100 [Novolog FlexPen U-100 Insulin] 100 unit/mL (3 mL) insulin pen 6 unit SUBCUT TIDWM Patient Comments: INJECT 10 UNITS UNDER THE SKIN THREE TIMES DAILY WITH MEALS hydroxyzine pamoate 25 mg capsule 25 mg PO HS Qty: 30 0RF pentosan polysulfate sodium 100 mg capsule 100 mg PO TID Qty: 90 3RF cefdinir 300 mg capsule 300 mg PO BID Qty: 14 0RF clonidine HCl 0.1 mg tablet 0.1 mg PO BID Qty: 60 1RF Referrals: No Primary/Family,Physician [Primary Care Provider] - In 1 week Problem List Clinical Impression: Abdominal pain, Upper GI bleed Patient/Caregiver Discharge Instructions Print Language: Samoan
[2024-04-27 11:52] LABS: Basophils # (Auto) 0.1 Thou/mm3 (0.0-0.2); Basophils % (Auto) 1 % (0-2.5); Eosinophils # (Auto) 0.1 Thou/mm3 (0.0-0.5); Eosinophils % (Auto) 1 % (0-10); Hematocrit 31.4 % (36.0-46.0); Hemoglobin 10.7 g/dL (12.0-16.0); Immature Granulocytes % (Auto) 0 % (0-0); Immature Granulocytes Auto 0.04 Thou/mm3 (0.00-0.00); Lymphocytes # (Auto) 2.1 Thou/mm3 (1.0-4.8); Lymphocytes % (Auto) 20 % (10-50); Mean Corpuscular HGB Conc 34.1 g/dl (31.0-37.0); Mean Corpuscular Hemoglobin 30.3 pg (25.0-35.0); Mean Corpuscular Volume 89 fL (80-100); Monocytes # (Auto) 0.5 Thou/mm3 (0.0-0.8); Monocytes % (Auto) 5 % (0-12); Neutrophils # (Auto) 7.8 Thou/mm3 (1.8-7.7); Neutrophils % (Auto) 74 % (37-80); Nucleated Red Blood Cell % 0 /100 WBC (0); Platelet Count 206 Thou/mm3 (140-440); RDW Standard Deviation 41.2 fL (36.4-46.3); Red Blood Count 3.53 Miln/mm3 (4.00-5.20); White Blood Count 10.6 Thou/mm3 (3.6-11.0)
[2024-04-27 12:04] LABS: Partial Thromboplastin Time 32.8 Seconds (22.0-36.0); Prothrombin Time 11.1 Seconds (9.0-12.2)
--- NOTE | 2024-04-27 12:06 | XR_ITS ---
Examination: CT brain head without contrast. 2-D sagittal coronal reconstructions Date and time of exam:April 27, 2024 1330 hours INDICATIONS: Headaches dizziness today CTDI: vol (mGy):48 DLP: (mGycm):930 Technique: Multiple CT axial sections of the brain have been obtained, 5 mm slice thickness. Contrast has not been administered. 2-D sagittal, coronal reconstructions have been obtained Low dose protocols were performed. One or more of the following dose reduction techniques were used; automated exposure control, adjustment of the mA and/or KV according to patient size, use of iterative reconstruction technique. Findings: No significant ventricular enlargement. Intra-axial or extra-axial hemorrhage density is not seen. No mass effect or midline shift Basal cisterns are not remarkable. Fourth ventricle is midline. Cranial vault intact. Impression: Negative for acute hemorrhage, mass effect or midline shift Advise clinical correlation follow-up accordingly
--- NOTE | 2024-04-27 12:06 | XR_ITS ---
Examination: CT abdomen and pelvis without contrast. Coronal 3-D reconstructions. Sagittal 2-D reconstructions. Date and time of exam:April 27, 2024 1333 hours INDICATIONS: Blood in the stools and lower abdominal pain today CTDI: vol (mGy): 9.56 DLP: (mGycm): 520 Technique: Axial images of the abdomen have been obtained, 3 mm slice thickness Intravenous contrast material has not been administered. Low dose protocols were performed. One or more of the following dose reduction techniques were used; automated exposure control, adjustment of the mA and/or KV according to patient size, use of iterative reconstruction technique. Findings: No focal liver or splenic lesion Absent gallbladder No pancreatic or adrenal mass Mild renal parenchymal scar formation Abdominal aortic calcification no aneurysmal dilatation No bowel obstruction No diverticulitis, scattered colonic diverticulosis Minimal thickening the rectal wall Minimal urinary bladder wall thickening up to 3 mm Moderate osteopenia IMPRESSION: Minimal thickening of the rectal wall, clinical correlation advised
[2024-04-27 12:11] LABS: Alanine Aminotransferase 12 U/L (10-49); Albumin/Globulin Ratio 1.4 (1.2-2.2); Alkaline Phosphatase 110 U/L (46-116); Anion Gap 8 (7-16); Aspartate Amino Transferase 18 U/L (0-34); B-Type Natriuretic Peptide 41 pg/mL (0-100); BUN/Creatinine Ratio 19 Ratio (12-20); Bilirubin,Total 0.4 mg/dL (0.3-1.2); Blood Urea Nitrogen 46 mg/dL (9-23); Calcium 9.6 mg/dL (8.3-10.6); Calcium (Corrected) 9.6 mg/dL (8.5-10.1); Carbon Dioxide 26.5 mMol/L (20.0-31.0); Chloride 103 mMol/L (98-107); Creatinine (Component) 2.4 mg/dL (0.6-1.3); Globulin 2.9 gm/dL (2.3-3.5); Glucose 190 mg/dL (74-106); Magnesium 2.2 mg/dL (1.6-2.6); Osmolality,Calculated 290 (275-295); Potassium 4.3 mMol/L (3.4-5.1); Sodium 137 mMol/L (136-145); Total Protein 6.9 gm/dL (5.7-8.2); Troponin I < 0.020 ng/mL (0.0-0.045); eGFR 20 See Note
[2024-04-27 12:25] LABS: OBS Developer Lot # 2-24-551749; OBS Performed By MADRG3; OBS QC OK? Yes; Occult Blood, Stool Positive (Negative)
[2024-04-27] MEDS: hydrALAZINE HCL 25 MG TABLET 50 MG PO (12:36)
[2024-04-27] MEDS: ACETAMINOPHEN 500 MG TABLET 1000 MG PO ×2 (12:36→21:50)
[2024-04-27] MEDS: MG HYD/AL HYD/SIME (Maalox Reg) SUSP 30 ML UDC PO (12:39)
[2024-04-27] MEDS: PANTOPRAZOLE INJ 40 MG VIAL 80 MG IV (12:39)
--- NOTE | 2024-04-27 14:00 | PC.NURSE ---
PT VOIDED; PT GIVEN PERINEAL CARE AND GIVEN NEW BLANKETS; PT PLACED IN NEW BRIEFS AND NEW CHUCKS PLACED UNDERNEATH PT.
[2024-04-27 14:03] LABS: Collection Type, Urine Clean Catch
--- NOTE | 2024-04-27 14:14 | PC.NURSE ---
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 PT GIVEN TURKEY SANDWICH AND APPLE JUICE AT THIS TIME.
[2024-04-27 14:23] LABS: Bilirubin,Urine Negative (Negative); Blood,Urine Trace (Negative); Clarity,Urine Clear (Clear/Hazy); Color,Urine Colorless (Lt Yel-Yel); Glucose, Urine 1+ (Negative); Ketones,Urine Negative (Negative); Leukocyte Esterase,Urine Positive (Negative); Nitrite,Urine Negative (Negative); PH,Urine 6.5 (5.0-7.0); Protein,Urine 3+ (Neg - Trace); RBC,Urine 10 /hpf (0-3); Specific Gravity,Urine 1.008 (1.001-1.035); Squamous Epithelial Cell,Urine 2 /hpf (0-5); Urobilinogen,Urine Negative mg/dL (0.0-1.0); WBC,Urine 27 /hpf (0-5)
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
[2024-04-27] MEDS: SODIUM CHLORIDE 0.9% 1000 ML 1,000 ML 80 ML IV (16:58)
--- NOTE | 2024-04-27 21:00 | PC.NURSE ---
Multiple calls made to pharmacy, regarding tylenol order, states been verified.
--- NOTE | 2024-04-27 21:10 | PC.NURSE ---
Patient refused to take benadryl, states it does make her sick, only would take tylenol updated.
--- NOTE | 2024-04-27 22:22 | PD.IMCONS ---
HPI Data of Consult Requesting Physician: Jacinta Zuñiga MD Primary Care Provider: Physician No Primary/Family Consult Narrative Reason for consult: Dark stools History of present illness: 83 years old female consulted by the ER physician for dark stools when she presented with nausea bloody lesion and lower abdominal pain and upper abdominal pain presenting hemoglobin hematocrit was 11.[address] scan of the abdomen pelvis done without contrast showed thickening of the rectal wall Patient has a history of hyperlipidemia hypertension diabetes mellitus type 2 hemoglobin hematocrit 22nd check drop down to 10.7 and 31.4 With a platelet count of 206,000 cc:: cc: Jacinta Zuñiga MD Review of Systems Review of Systems Systems Reviewed: All systems reviewed, normal except as documented Past Medical History Surgical History OTHER SURGICAL HX: As in the history of present illness Meds Home Medications and Allergies Home Medications ?Medication ?Instructions ?Recorded ?Confirmed ?Type loratadine 10 mg tablet 10 mg PO QDAY 04/22/21 04/27/24 History omeprazole 20 mg capsule,delayed 20 mg PO QDAY 06/20/21 04/27/24 History release insulin degludec 200 unit/mL (3 45 unit subcut QDAY 08/12/21 04/27/24 History mL) subcutaneous pen (Tresiba FlexTouch U-200 insulin) atorvastatin 20 mg tablet 20 mg PO HS 03/11/22 04/27/24 History benzonatate 100 mg capsule 100 mg PO TID 03/11/22 04/27/24 History insulin aspart U-100 100 unit/mL 6 unit subcut TIDWM 03/11/22 04/27/24 History (3 mL) subcutaneous pen (Novolog FlexPen U-100 Insulin aspart) amitriptyline 25 mg tablet 25 mg PO QDAY PRN Anxiety 01/25/23 04/27/24 History diltiazem HCl 240 mg 240 mg PO QDAY 05/19/23 04/27/24 History tablet,extended release 24 hr carvedilol 6.25 mg tablet 6.25 mg PO Q12H 04/27/24 04/27/24 History losartan 100 mg tablet 100 mg PO DAILY for BP 04/27/24 04/27/24 History Allergies Allergy/AdvReac Type Severity Reaction Status Date / Time amoxicillin Allergy Severe Vomiting Verified 04/27/24 10:43 codeine Allergy Severe PALPITATION Verified 04/27/24 10:43 S diazepam Allergy Severe RAPID Verified 04/27/24 10:43 HEARTRATE hydrocodone Allergy Severe Vomiting Verified 04/27/24 10:43 hydromorphone Allergy Severe Agitated Verified 04/27/24 10:43 ibuprofen Allergy Severe BLEEDING Verified 04/27/24 10:43 IN STOMACH PER PT meperidine Allergy Severe RAPID Verified 04/27/24 10:43 HEARTRATE morphine Allergy Severe RAPID Verified 04/27/24 10:43 HEARTRATE propoxyphene Allergy Severe RAPID Verified 04/27/24 10:43 HEARTRATE adhesive tape AdvReac Severe Hives Verified 04/27/24 10:43 levofloxacin AdvReac Severe VOMITS Verified 04/27/24 10:43 Exam Vital Signs Temp Pulse Resp BP Pulse Ox O2 Del Method 97.2 F 68 17 168/82 H 99 Room Air 04/27/24 20:00 04/27/24 20:00 04/27/24 20:00 04/27/24 20:00 04/27/24 20:00 04/27/24 20:00 Constitutional Comments: Chronically ill-appearing Routine Respiratory Exam Comments: Normal to auscultation Routine Abdominal Exam Comments: Soft nontender Results Labs 04/27/24 11:39 04/27/24 11:39 Labs: Short CBC 04/27/24 Range/Units 11:39 WBC 10.6 (3.6-11.0) Thou/mm3 Hgb 10.7 L (12.0-16.0) g/dL Hct 31.4 L (36.0-46.0) % Plt Count 206 D (140-440) Thou/mm3 BMP 04/27/24 11:39 Sodium 137 Potassium 4.3 Chloride 103 Carbon Dioxide 26.5 BUN 46 H Creatinine 2.4 H Glucose 190 H D Calcium 9.6 Cardiac Enzymes 04/27/24 Range/Units 11:39 Troponin I < 0.020 (0.0-0.045) ng/mL Liver Function 04/27/24 Range/Units 11:39 Total Bilirubin 0.4 (0.3-1.2) mg/dL AST 18 (0-34) U/L ALT 12 (10-49) U/L Alkaline Phosphatase 110 D (46-116) U/L Albumin 4.0 (3.4-4.8) gm/dL Urine 04/27/24 Range/Units 13:54 Urine Color Colorless A (Lt Yel-Yel) Urine Clarity Clear (Clear/Hazy) Urine pH 6.5 (5.0-7.0) Ur Specific [place] 1.008 (1.001-1.035) Urine Protein 3+ A (Neg - Trace) Urine Glucose (UA) 1+ A (Negative) Assessment and Plan Additional Assessment & Plan Additional Plan: # Dark melanotic stools # drop in hemoglobin hematocrit # Abnormal CT scan of the abdomen pelvis showing thickening of the rectal wall plan Consent obtained for fiberoptic esophagogastroduodenoscopy with possible biopsy to evaluate melena under intravenous moderate sedation Clear liquid diet Will follow the patient other medical problems include # Essential hypertension # Diabetes mellitus type 2 # Hyperlipidemia Thank you very much for the opportunity to participate in the care of this patient
[2024-04-28] VITALS (9 sets, daily range): BP systolic 157–182; BP diastolic 66–89; PULSE 71–87; RESP 14–97; TEMP 36.2–36.7; O2SAT 97–99; BMI 14.0
[2024-04-28] MEDS: ONDANSETRON INJ 2 MG/ML INJ 2 ML 4 MG IV ×2 (00:16→08:29)
[2024-04-28] MEDS: MG HYD/AL HYD/SIME (Maalox Reg) SUSP 30 ML UDC PO (02:24)
[2024-04-28] MEDS: hydrALAZINE INJ 20 MG/ML VIAL 10 MG IV ×2 (04:56→11:44)
[2024-04-28] MEDS: SODIUM CHLORIDE 0.9% 1000 ML 1,000 ML 80 ML IV (05:22)
[2024-04-28 05:53] LABS: Basophils % (Auto) 0 % (0-2.5); Eosinophils # (Auto) 0.1 Thou/mm3 (0.0-0.5); Eosinophils % (Auto) 1 % (0-10); Hematocrit 28.1 % (36.0-46.0); Hemoglobin 9.6 g/dL (12.0-16.0); Immature Granulocytes % (Auto) 0 % (0-0); Immature Granulocytes Auto 0.03 Thou/mm3 (0.00-0.00); Lymphocytes # (Auto) 2.9 Thou/mm3 (1.0-4.8); Lymphocytes % (Auto) 30 % (10-50); Mean Corpuscular HGB Conc 34.2 g/dl (31.0-37.0); Mean Corpuscular Hemoglobin 30.4 pg (25.0-35.0); Mean Corpuscular Volume 89 fL (80-100); Monocytes # (Auto) 0.6 Thou/mm3 (0.0-0.8); Monocytes % (Auto) 6 % (0-12); Neutrophils # (Auto) 6.2 Thou/mm3 (1.8-7.7); Neutrophils % (Auto) 62 % (37-80); Nucleated Red Blood Cell % 0 /100 WBC (0); Platelet Count 251 Thou/mm3 (140-440); RDW Standard Deviation 41.3 fL (36.4-46.3); Red Blood Count 3.16 Miln/mm3 (4.00-5.20); White Blood Count 9.9 Thou/mm3 (3.6-11.0)
[2024-04-28] MEDS: ACETAMINOPHEN 500 MG TABLET 1000 MG PO ×2 (06:05→11:38)
[2024-04-28 06:39] LABS: Alanine Aminotransferase 10 U/L (10-49); Albumin, Serum 3.4 gm/dL (3.4-4.8); Albumin/Globulin Ratio 1.5 (1.2-2.2); Alkaline Phosphatase 103 U/L (46-116); Anion Gap 7 (7-16); Aspartate Amino Transferase < 10 U/L (0-34); BUN/Creatinine Ratio 18 Ratio (12-20); Bilirubin,Total 0.3 mg/dL (0.3-1.2); Blood Urea Nitrogen 43 mg/dL (9-23); Calcium (Corrected) 9.5 mg/dL (8.5-10.1); Cardiac Risk Estimate 3.2 RATIO (3.7-5.6); Chloride 108 mMol/L (98-107); Cholesterol 152 mg/dL (132-200); Creatinine (Component) 2.4 mg/dL (0.6-1.3); Estimated Creatinine Clearance 15.9 mL/min (>60); Globulin 2.3 gm/dL (2.3-3.5); Glucose 163 mg/dL (74-106); HDL Cholesterol 48 mg/dL (40-60); LDL Cholesterol,Calculated 62 mg/dL (0-130); Magnesium 2.3 mg/dL (1.6-2.6); Osmolality,Calculated 297 (275-295); Potassium 4.5 mMol/L (3.4-5.1); Sodium 142 mMol/L (136-145); Thyroid Stimulating Hormone 1.82 uIU/mL (0.55-4.78); Total Protein 5.7 gm/dL (5.7-8.2); Triglycerides 209 mg/dL (30-150); eGFR 20 See Note
[2024-04-28 06:48] LABS: Glucose Estimated Average 197 mg/dL (80-131); Hemoglobin A1C 8.5 % Hgb (4.8-6.0)
[2024-04-28] MEDS: PANTOPRAZOLE INJ 40 MG VIAL IV (08:22)
--- NOTE | 2024-04-28 08:50 | PC.SS ---
SS spoke to Thea at [facility] in regards to pt requesting SNF at her facility, per Thea she can accept her ONLY if she meets 3 Midnight qualifying stay. Team aware.
--- NOTE | 2024-04-28 12:00 | PD.IMCONS ---
HPI Data of Consult Requesting Physician: Jacinta Zuñiga MD Primary Care Provider: Physician No Primary/Family Consult Narrative cc:: cc: Jacinta Zuñiga MD Meds Home Medications and Allergies Home Medications ?Medication ?Instructions ?Recorded ?Confirmed ?Type loratadine 10 mg tablet 10 mg PO QDAY 04/22/21 04/27/24 History omeprazole 20 mg capsule,delayed 20 mg PO QDAY 06/20/21 04/27/24 History release insulin degludec 200 unit/mL (3 45 unit subcut QDAY 08/12/21 04/27/24 History mL) subcutaneous pen (Tresiba FlexTouch U-200 insulin) atorvastatin 20 mg tablet 20 mg PO HS 03/11/22 04/27/24 History benzonatate 100 mg capsule 100 mg PO TID 03/11/22 04/27/24 History insulin aspart U-100 100 unit/mL 6 unit subcut TIDWM 03/11/22 04/27/24 History (3 mL) subcutaneous pen (Novolog FlexPen U-100 Insulin aspart) amitriptyline 25 mg tablet 25 mg PO QDAY PRN Anxiety 01/25/23 04/27/24 History diltiazem HCl 240 mg 240 mg PO QDAY 05/19/23 04/27/24 History tablet,extended release 24 hr carvedilol 6.25 mg tablet 6.25 mg PO Q12H 04/27/24 04/27/24 History losartan 100 mg tablet 100 mg PO DAILY for BP 04/27/24 04/27/24 History sertraline 25 mg tablet 25 mg PO HS 04/28/24 04/28/24 History Allergies Allergy/AdvReac Type Severity Reaction Status Date / Time amoxicillin Allergy Severe Vomiting Verified 04/27/24 10:43 codeine Allergy Severe PALPITATION Verified 04/27/24 10:43 S diazepam Allergy Severe RAPID Verified 04/27/24 10:43 HEARTRATE hydrocodone Allergy Severe Vomiting Verified 04/27/24 10:43 hydromorphone Allergy Severe Agitated Verified 04/27/24 10:43 ibuprofen Allergy Severe BLEEDING Verified 04/27/24 10:43 IN STOMACH PER PT meperidine Allergy Severe RAPID Verified 04/27/24 10:43 HEARTRATE morphine Allergy Severe RAPID Verified 04/27/24 10:43 HEARTRATE propoxyphene Allergy Severe RAPID Verified 04/27/24 10:43 HEARTRATE adhesive tape AdvReac Severe Hives Verified 04/27/24 10:43 levofloxacin AdvReac Severe VOMITS Verified 04/27/24 10:43 Exam Vital Signs Temp Pulse Resp BP Pulse Ox O2 Del Method 97.4 F 84 18 157/81 H 98 Room Air 04/28/24 16:00 04/28/24 16:24 04/28/24 16:24 04/28/24 16:00 04/28/24 16:00 04/28/24 16:00 Results Labs 04/28/24 04:47 04/28/24 04:47 Labs: Short CBC 04/28/24 Range/Units 04:47 WBC 9.9 (3.6-11.0) Thou/mm3 Hgb 9.6 L (12.0-16.0) g/dL Hct 28.1 L (36.0-46.0) % Plt Count 251 D (140-440) Thou/mm3 [facility] 04/28/24 04:47 Sodium 142 Potassium 4.5 Chloride 108 H Carbon Dioxide 27.0 BUN 43 H Creatinine 2.4 H Glucose 163 H Calcium 9.0 Liver Function 04/28/24 Range/Units 04:47 Total Bilirubin 0.3 (0.3-1.2) mg/dL AST < 10 (0-34) U/L ALT 10 (10-49) U/L Alkaline Phosphatase 103 (46-116) U/L Albumin 3.4 D (3.4-4.8) gm/dL
--- NOTE | 2024-04-28 14:30 | PC.SS ---
Late Entry: Rounding note, pt currently obs status, team unaware at this time if pt will meet inpt status. If pt meets inpt status will qualify for SNF. If pt does not meet inpt status pt will not be able to qualify for SNF under medicare.
--- NOTE | 2024-04-28 18:34 | EVENTNT_ITS ---
Documentation for date of: 04/28/24 Event Note Event Note: Patient left AMA despite explanations of possible consequences. Patient understood risks and benefits yet decided to leave AMA. This patient care was discussed with my attending Dr. Zara Resendiz MD PGY-2 Disclaimer: Minor errors in state federal relations deputy director may be present since this note was dictated by speech recognition software.
--- NOTE | 2024-04-28 19:26 | PD.IMPROG ---
Documentation for date of: 04/28/24 Subjective Subjective Interval history: Patient was scheduled for upper endoscopy but left AGAINST MEDICAL ADVICE Exam Vital Signs Temp Pulse Resp BP Pulse Ox O2 Del Method 97.4 F 84 18 157/81 H 98 Room Air 04/28/24 16:00 04/28/24 16:24 04/28/24 16:24 04/28/24 16:00 04/28/24 16:00 04/28/24 16:00 Objective Labs 04/28/24 04:47 04/28/24 04:47 Labs: Laboratory Results - last 24 hr 04/28/24 04:47 WBC 9.9 RBC 3.16 L Hgb 9.6 L Hct 28.1 L MCV 89 MCH 30.4 MCHC 34.2 RDW Std Deviation 41.3 Plt Count 251 D Neut % (Auto) 62 Lymph % (Auto) 30 [place] % (Auto) 6 Eos % (Auto) 1 Baso % (Auto) 0 Neut # (Auto) 6.2 Lymph # (Auto) 2.9 [place] # (Auto) 0.6 Eos # (Auto) 0.1 Baso # (Auto) 0.0 Immature Gran # (Auto) 0.03 H Absolute Nucleated RBC 0.00 Immature Gran % 0 Nucleated RBC % 0 Sodium 142 Potassium 4.5 Chloride 108 H Carbon Dioxide 27.0 Anion Gap 7 BUN 43 H Creatinine 2.4 H Estim Creat Clear Calc 15.9 L eGFR 20 L BUN/Creatinine Ratio [address] Glu mg/dL 197 H Hemoglobin A1c 8.5 H Calculated Osmolality 297 H Calcium 9.0 Corrected Calcium 9.5 Phosphorus 4.0 Magnesium 2.3 Total Bilirubin 0.3 AST < 10 ALT 10 Alkaline Phosphatase 103 Total Protein 5.7 Albumin 3.4 D Globulin 2.3 Albumin/Globulin Ratio 1.5 Triglycerides 209 H Cholesterol 152 LDL Cholesterol, Calc 62 HDL Cholesterol 48 Cholesterol/HDL Ratio 3.2 L TSH 1.82 Impressions Impression: Posthemorrhagic anemia melena if patient changes mind patient can come back to the emergency room and we can perform the procedure or we can do that as an outpatient if Assessment & Plan A&P Narrative # Dark melanotic stools # drop in hemoglobin hematocrit # Abnormal CT scan of the abdomen pelvis showing thickening of the rectal wall plan Consent obtained for fiberoptic esophagogastroduodenoscopy with possible biopsy to evaluate melena under intravenous moderate sedation Clear liquid diet Will follow the patient other medical problems include # Essential hypertension # Diabetes mellitus type 2 # Hyperlipidemia Thank you very much for the opportunity to participate in the care of this patient Time Spent With Patient Time: Total time spent is greater than 50% in coordination of care (as documented) at patient's floor/unit and/or counseling patient:
== END 2024-04-28 17:32 | disposition left against medical advice (07) ==
LOC: SERX 13:57 → SERHOLD 04-28 06:30 → S3NX 04-28 06:30
PROVIDERS: Nurse Practitioner Family; Admitting Provider Student in an Organized Health Care Education/Training Program; Emergency Provider Emergency Medicine; Visit Provider Student in an Organized Health Care Education/Training Program
DX: D62 Acute posthemorrhagic anemia (principal); D50.0 Iron deficiency anemia secondary to blood loss (chronic); E11.22 Type 2 diabetes mellitus with diabetic chronic kidney disease; E78.5 Hyperlipidemia, unspecified; F41.9 Anxiety disorder, unspecified; I13.0 Hypertensive heart and chronic kidney disease with heart failure and stage 1 through stage 4 chronic kidney disease, or unspecified chronic kidney disease; I16.0 Hypertensive urgency; I50.32 Chronic diastolic (congestive) heart failure; K25.4 Chronic or unspecified gastric ulcer with hemorrhage; K56.699 Other intestinal obstruction unspecified as to partial versus complete obstruction; K57.33 Diverticulitis of large intestine without perforation or abscess with bleeding; K64.9 Unspecified hemorrhoids; N18.4 Chronic kidney disease, stage 4 (severe); N30.10 Interstitial cystitis (chronic) without hematuria; Z53.29 Procedure and treatment not carried out because of patient's decision for other reasons; Z01.810 Encounter for preprocedural cardiovascular examination
CPT/HCPCS: 36415; 70450; 74176; 80053; 80061; 81001; 82270; 83036; 83735; 83880; 84100; 84443; 84484; 85025; 85610; 85730; 93005; 96361; 96374; 99285; G0378; J0360; J2405; J2470; J7030; A9270

== ENCOUNTER 2024-04-29 18:09 | Emergency (ER) | payer MEDICARE, MEDICAID, SELFPAY ==
[2024-04-29 18:33] VITALS: BP 196/94; PULSE 76; RESP 15; TEMP 36.9; O2SAT 97; BMI 30.9
--- NOTE | 2024-04-29 18:47 | XR_ITS ---
Examination: CT cervical spine without contrast 2-D sagittal reconstructions 2-D coronal reconstructions 3-D reconstructions. Exam date and time:April 29, 2024 1955 hrs. Indications: Neck pain today with headache CTDI:vol (mGy) 7.98 DLP: (mGycm) 162 Technique: Multiple 2 mm axial sections of the cervical spine have been obtained. The coronal and sagittal reconstructions have been obtained. 3-D reconstructions have been obtained. Low dose protocols were performed. One or more of the following dose reduction techniques were used; automated exposure control, adjustment of the mA and/or KV according to patient size, use of iterative reconstruction technique. Findings: Axial sections demonstrate intact base of the skull. C1 exhibit satisfactory relationship to the odontoid. No acute cervical vertebral body fracture seen. Alignment posterior spinous processes satisfactory. Axial image 45, axial image 50, sagittal image 45 demonstrates widened intervertebral foramina on the right side at C3 and on the left side at C4 Impression: No acute cervical fracture. Right intervertebral foramina as above Recommend elective MRI cervical spine follow-up, pre and postcontrast to exclude foraminal tumors such as melanoma or meningioma
--- NOTE | 2024-04-29 18:47 | XR_ITS ---
Examination: CT chest, without intravenous contrast. CT abdomen, without intravenous contrast. CT pelvis, without intravenous contrast. 2-D sagittal and coronal reconstructions. 3-D reconstructions. Date and time of exam:April 29, 2024 at 1959 hrs. Indications: High blood pressure chest pain abdominal pain today CTDI vol (mgy) 8.40 DLP (MGycm)583 Technique: Multiple CT images, 3.0 mm slice thickness, obtained chest, abdomen, pelvis, with the high-resolution 64 slice scanner.. Sagittal and coronal 2-D reconstructions are obtained. 3-D reconstructions Low dose protocols were performed. One or more of the following dose reduction techniques were used; automated exposure control, adjustment of the mA and/or KV according to patient size, use of iterative reconstruction technique. Findings: Thoracic aortic calcification no aneurysmal dilatation Pulmonary artery segments are not enlarged Prominent calcification left anterior descending left circumflex right coronary arteries Mild enlargement cardiac contour No paratracheal tracheobronchial or bronchopulmonary adenopathy 5 mm pulmonary nodule left upper lobe image 36 5 mm pulmonary nodule right upper lobe image 70 4 mm pulmonary nodule lingular segment image 137 No pneumonia or pulmonary edema No visualized liver splenic lesion Absent gallbladder No pancreatic or adrenal mass Mild bilateral renal parenchymal scar formation No renal or ureteral calculi, no hydronephrosis Abdominal aortic calcification no aneurysmal dilatation No pericecal inflammatory change No obstruction No diverticulitis although scattered diverticulosis is present There is abnormal thickening of the urinary bladder wall, on the right side measuring up to 9 mm Absent uterus Advanced disc narrowing L5-S1 with moderate osteopenia Moderate narrowing hip joints Impression: Heavy coronary artery calcification Noncalcified pulmonary nodules as above, with this study as baseline recommend 6 month follow-up CT chest without contrast No pneumonia or pulmonary edema Mild bilateral renal parenchymal scar formation No CT findings of appendicitis bowel obstruction or diverticulitis Abnormal thickening of urinary bladder wall, along the right side measuring up to 9 mm, differential would include cystitis, early bladder carcinoma not excluded
--- NOTE | 2024-04-29 18:47 | EKG_ITS ---
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
--- NOTE | 2024-04-29 18:47 | XR_ITS ---
Examination: CT brain head without contrast. 2-D sagittal coronal reconstructions Date and time of exam:April 29, 2024 1922 hrs. Indications: Headache high blood pressure today CTDI: vol (mGy):46.3 DLP: (mGycm):894 Technique: Multiple CT axial sections of the brain have been obtained, 5 mm slice thickness. Contrast has not been administered. 2-D sagittal, coronal reconstructions have been obtained Low dose protocols were performed. One or more of the following dose reduction techniques were used; automated exposure control, adjustment of the mA and/or KV according to patient size, use of iterative reconstruction technique. Findings: No significant ventricular enlargement. 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 No mass effect or midline shift Basal cisterns are not remarkable. Fourth ventricle is midline. Cranial vault intact. Impression: Negative for acute hemorrhage, mass effect or midline shift
[2024-04-29 18:54] VITALS: PULSE 80
--- NOTE | 2024-04-29 19:00 | PD.EDHA ---
ED Headache RME/HPI General Chief Complaint: Headache Stated Complaint: HIGH BLOOD PRESSURE ABD PAIN Time Seen by Provider: 04/29/24 18:31 Arrival date/time: 04/29/24 18:09 RME / HPI RME / HPI Narrative: This section includes all my notes and documentations, including HPI, PE, and ED course. Henry Dillard MD HPI: 83-year-old female here with severe headache and high BP. No speech or visual impairment. No loss of power in the arms or legs. No chest pain. No other complaints. ROS: All negative except as documented in HPI. Physical Exam: General: Alert and oriented. Appears to be in pain. High BP noted. Eyes: Conjunctivae and lids clear. EOMI. PERRL. ENT: No nasal congestion. Pharynx normal. Tympanic membrane normal bilaterally. Neck: Supple. No lymphadenopathy. No JVD. Heart: RRR. Lungs: No respiratory distress. Good air movement. No rhonchi, wheezing, rales. Abdomen: Soft and nontender. Normal bowel sounds. No distension. No rebound or guarding. Back: No CVA tenderness. Legs: No clubbing, cyanosis, edema. Skin: Warm and dry. Neuro: Alert and oriented X 3. Cranial Nerves II-XII grossly intact. No peripheral motor deficits. I reviewed all diagnostic test results. My interpretation of the EKG is sinus rhythm with no acute ST?T changes. My review of the head and cervical spine and chest/abdomen/pelvis CT reports is no acute findings. Blood tests unremarkable. At this point, diagnoses include headache and high BP. Treatment here included clonidine 0.3 mg and Percocet 5/325 mg X 2 and Macrobid 100 mg. Significant improvement noted. Based on my best medical judgment, made decision no further evaluation or treatment indicated at this time. Patient understands and agrees to the discharge instructions customized and printed, see below. Discharge Instructions from Dr. Dillard printed for you: 1. After extensive evaluation, there is no life-threatening condition. Such as stroke or brain tumor or heart attack. 2. To prevent future strokes and heart attacks, we need to lower your BP. Take Clonidine every morning and every evening based on SBP (higher number of BP): One pill if SBP > 140. Two pills if SBP > 160. Three pills if SBP > 180. Four pills if SBP > 200. 3. See your private doctor on 05/01/2024 for recheck and further care. Make sure you take Macrobid for UTI from 04/27/2024. 4. Seek immediate medical care with worsening or with any concerns. Henry Dillard MD Related Data Home Medications ?Medication ?Instructions ?Recorded ?Confirmed loratadine 10 mg tablet 10 mg PO QDAY 04/22/21 04/27/24 omeprazole 20 mg capsule,delayed 20 mg PO QDAY 06/20/21 04/27/24 release insulin degludec 200 unit/mL (3 45 unit subcut QDAY 08/12/21 04/27/24 mL) subcutaneous pen (Tresiba FlexTouch U-200 insulin) atorvastatin 20 mg tablet 20 mg PO HS 03/11/22 04/27/24 benzonatate 100 mg capsule 100 mg PO TID 03/11/22 04/27/24 insulin aspart U-100 100 unit/mL 6 unit subcut TIDWM 03/11/22 04/27/24 (3 mL) subcutaneous pen (Novolog FlexPen U-100 Insulin aspart) amitriptyline 25 mg tablet 25 mg PO QDAY PRN Anxiety 01/25/23 04/27/24 diltiazem HCl 240 mg 240 mg PO QDAY 05/19/23 04/27/24 tablet,extended release 24 hr carvedilol 6.25 mg tablet 6.25 mg PO Q12H 04/27/24 04/27/24 losartan 100 mg tablet 100 mg PO DAILY for BP 04/27/24 04/27/24 sertraline 25 mg tablet 25 mg PO HS 04/28/24 04/28/24 Previous Rx's ?Medication ?Instructions ?Recorded amlodipine 10 mg tablet 10 mg PO QDAY #30 tabs 01/27/23 furosemide 40 mg tablet (Lasix) 40 mg PO QAM #30 tabs 05/25/23 losartan 50 mg tablet 50 mg PO QDAY #30 tabs 05/25/23 hydroxyzine pamoate 25 mg capsule 25 mg PO HS #30 caps 06/25/23 pentosan polysulfate sodium 100 mg 100 mg PO TID #90 caps 09/21/23 capsule clonidine HCl 0.1 mg tablet 0.1 mg PO BID #60 tabs 04/12/24 Held on 04/27/24. Instructions: Not taking nitrofurantoin 100 mg PO Q12H 7 days #14 caps 04/26/24 monohydrate/macrocrystals 100 mg capsule (Macrobid) clonidine HCl 0.1 mg tablet 0.1 mg PO BID #60 tabs 04/29/24 nitrofurantoin 100 mg PO BID 7 days #14 caps 04/30/24 monohydrate/macrocrystals 100 mg capsule (Macrobid) Allergies Allergy/AdvReac Type Severity Reaction Status Date / Time amoxicillin Allergy Severe Vomiting Verified 04/29/24 18:59 codeine Allergy Severe PALPITATION Verified 04/29/24 18:59 S diazepam Allergy Severe RAPID Verified 04/29/24 18:59 HEARTRATE hydrocodone Allergy Severe Vomiting Verified 04/29/24 18:59 hydromorphone Allergy Severe Agitated Verified 04/29/24 18:59 ibuprofen Allergy Severe BLEEDING Verified 04/29/24 18:59 IN STOMACH PER PT meperidine Allergy Severe RAPID Verified 04/29/24 18:59 HEARTRATE morphine Allergy Severe RAPID Verified 04/29/24 18:59 HEARTRATE propoxyphene Allergy Severe RAPID Verified 04/29/24 18:59 HEARTRATE adhesive tape AdvReac Severe Hives Verified 04/29/24 18:59 levofloxacin AdvReac Severe VOMITS Verified 04/29/24 18:59 Course Quality Measures none Orders Category Date Time Status EKG (ED ONLY) *Do not use* NOW Care 04/29/24 18:[address] cervical spine wo con Stat Exams 04/29/24 18:[address] chest abdomen pelvis wo Stat Exams 04/29/24 18:[address] head/brain wo con Stat Exams 04/29/24 18:47 Completed EKG (ED Only) Stat Exams 04/29/24 18:47 Ordered CBC Stat Lab 04/29/24 19:10 Completed CMP [Comprehensive Metabolic Panel] Stat Lab 04/29/24 19:10 Completed Magnesium Stat Lab 04/29/24 19:10 Completed TSH [Thyroid Stimulating Hormone] Stat Lab 04/29/24 19:10 Completed Troponin I Stat Lab 04/29/24 19:10 Completed Nitrofurantoin Macro [Macrobid] Med 04/29/24 18:48 Discontinued 100 mg PO X1 ONE cloNIDine HCL [Catapres] Med 04/29/24 18:45 Discontinued 0.3 mg PO X1 ONE oxyCODONE/APAP 5/325 [Percocet 5/325] Med 04/29/24 18:45 Discontinued 2 tab PO X1 ONE Vital Signs Vital signs: Vital Signs Temperature 98.5 F 04/29/24 18:33 Pulse Rate 76 04/29/24 18:33 Respiratory Rate 15 04/29/24 18:33 Blood Pressure 196/94 H 04/29/24 18:33 Pulse Oximetry (%) 97 04/29/24 18:33 Oxygen Delivery Method Room Air 04/29/24 18:33 Headache Patient data External records reviewed:: [facility] previous records and EMS form Clinical information provided by:: patient and EMS Social determinants that could affect healthcare access:: other (specify) (Noncompliance) Patient has the following chronic illnesses:: Hypertension How is presenting disease/condition affected by chronic disease/condition?: exacerbated by Evaluation data The following diagnostics were reviewed and interpreted by me:: lab results, radiology exam(s) and EKG tracing(s) (My interpretation of the EKG is: Sinus rhythm (75 bpm) with nonspecific ST-T changes. Henry Dillard MD) Lab and/or radiology exams considered but not ordered:: None Interpretation Summary: Normal diagnostics Medications / Prescriptions Medications or Prescriptions considered but not ordered:: None Medication administrations:: Medication Administration History Discontinued Medications Clonidine (Clonidine Hcl 0.1 Mg Tablet) 0.3 mg PO X1 ONE Stop: 04/29/24 18:46 Last Admin: 04/29/24 20:20 Dose: 0.3 mg Documented By: BUBBA Nitrofurantoin Macrocrystals (Nitrofurantoin Macro 100 Mg Capsule) 100 mg PO X1 ONE Stop: 04/29/24 18:49 Last Admin: 04/29/24 20:23 Dose: 100 mg Documented By: BUBBA Oxycodone/Acetaminophen (Oxycodone/Apap 5/325 Tablet) 2 tab PO X1 ONE Stop: 04/29/24 18:46 Last Admin: 04/29/24 20:22 Dose: 2 tab Documented By: BUBBA Clonidine and Macrobid and Percocets Consultations Consultation(s) initiated? (list below): No Diagnosis Differential diagnosis headache: migraine, tension headache, subarachnoid hemorrhage, headache and sinusitis Most likely diagnosis given after review of the tests above:: Hypertensive urgency Admission Indicated Admission indicated?: not indicated Explain why admission is indicated or not indicated:: No criteria for admission Admission Request Was there a request for admission?: No Disposition Plan Disposition Plan: Discharge Discharge Attestation Discharge Attestation: The patient and all family members were given an opportunity to ask questions and understood the discharge instructions. Discharge instructions specifically effects, indications for sooner follow up or return to the emergency department, and the expected course of current diagnosis. Patient condition: Stable Discharge Plan Plan Patient Disposition: HOME (Self Care) Prescriptions/Referrals Prescriptions/Med Rec: New clonidine HCl 0.1 mg tablet 0.1 mg PO BID Qty: 60 0RF nitrofurantoin monohyd/m-cryst [Macrobid] 100 mg capsule 100 mg PO BID 7 Days Qty: 14 0RF Rx Instructions: must administer with a meal/food No Action loratadine 10 mg tablet 10 mg PO QDAY Patient Comments: TAKE 1 TABLET BY MOUTH EVERY DAY insulin degludec [Tresiba FlexTouch U-200] 200 unit/mL (3 mL) insulin pen 45 unit SUBCUT QDAY omeprazole 20 mg Capsule,Delayed Release(Dr/Ec) 20 mg PO QDAY amitriptyline 25 mg tablet 25 mg PO QDAY PRN (Reason: Anxiety) amlodipine 10 mg tablet 10 mg PO QDAY Qty: 30 0RF diltiazem HCl 240 mg Tablet Extended Release 24 Hr 240 mg PO QDAY furosemide [Lasix] 40 mg tablet 40 mg PO QAM Qty: 30 0RF losartan 50 mg tablet 50 mg PO QDAY Qty: 30 1RF nitrofurantoin monohyd/m-cryst [Macrobid] 100 mg capsule 100 mg PO Q12H 7 Days Qty: 14 0RF Rx Instructions: must administer with a meal/food losartan 100 mg tablet 100 mg PO DAILY Patient Comments: TAKE 1 TABLET BY MOUTH EVERY DAY carvedilol 6.25 mg tablet 6.25 mg PO Q12H sertraline 25 mg tablet 25 mg PO HS Patient Comments: TAKE 1 TABLET BY MOUTH AT BEDTIME atorvastatin 20 mg tablet 20 mg PO HS benzonatate 100 mg capsule 100 mg PO TID Patient Comments: TAKE 1 CAPSULE BY MOUTH TWICE DAILY insulin aspart U-100 [Novolog FlexPen U-100 Insulin] 100 unit/mL (3 mL) insulin pen 6 unit SUBCUT TIDWM Patient Comments: INJECT 10 UNITS UNDER THE SKIN THREE TIMES DAILY WITH MEALS hydroxyzine pamoate 25 mg capsule 25 mg PO HS Qty: 30 0RF pentosan polysulfate sodium 100 mg capsule 100 mg PO TID Qty: 90 3RF clonidine HCl 0.1 mg tablet 0.1 mg PO BID Qty: 60 1RF Referrals: No Primary/Family,Physician [Primary Care Provider] - In 1 week Problem List Clinical Impression: Hypertension Patient/Caregiver Discharge Instructions Discharge Activity: activity as tolerated Education Materials: ED Hypertension, Established Additional Instructions: Discharge Instructions from Dr. Dillard printed for you: 1. After extensive evaluation, there is no life-threatening condition. Such as stroke or brain tumor or heart attack. 2. To prevent future strokes and heart attacks, we need to lower your BP. Take Clonidine every morning and every evening based on SBP (higher number of BP): One pill if SBP > 140. Two pills if SBP > 160. Three pills if SBP > 180. Four pills if SBP > 200. 3. See your private doctor on 05/01/2024 for recheck and further care. Make sure you take Macrobid for UTI from 04/27/2024. 4. Seek immediate medical care with worsening or with any concerns. Print Language: Kyrgyz Stand Alone Forms: Grace Award Info., Patient Portal Info Letter
[2024-04-29 19:21] LABS: Basophils # (Auto) 0.1 Thou/mm3 (0.0-0.2); Basophils % (Auto) 1 % (0-2.5); Eosinophils # (Auto) 0.1 Thou/mm3 (0.0-0.5); Eosinophils % (Auto) 1 % (0-10); Hemoglobin 10.8 g/dL (12.0-16.0); Immature Granulocytes % (Auto) 0 % (0-0); Immature Granulocytes Auto 0.03 Thou/mm3 (0.00-0.00); Lymphocytes # (Auto) 2.8 Thou/mm3 (1.0-4.8); Lymphocytes % (Auto) 26 % (10-50); Mean Corpuscular HGB Conc 33.8 g/dl (31.0-37.0); Mean Corpuscular Volume 89 fL (80-100); Monocytes # (Auto) 0.7 Thou/mm3 (0.0-0.8); Monocytes % (Auto) 6 % (0-12); Neutrophils # (Auto) 7.1 Thou/mm3 (1.8-7.7); Neutrophils % (Auto) 66 % (37-80); Nucleated Red Blood Cell % 0 /100 WBC (0); Platelet Count 262 Thou/mm3 (140-440); RDW Standard Deviation 42.1 fL (36.4-46.3); White Blood Count 10.7 Thou/mm3 (3.6-11.0)
[2024-04-29 19:44] LABS: Alanine Aminotransferase 10 U/L (10-49); Albumin/Globulin Ratio 1.3 (1.2-2.2); Alkaline Phosphatase 134 U/L (46-116); Anion Gap 5 (7-16); Aspartate Amino Transferase 15 U/L (0-34); BUN/Creatinine Ratio 15 Ratio (12-20); Bilirubin,Total 0.2 mg/dL (0.3-1.2); Blood Urea Nitrogen 38 mg/dL (9-23); Calcium 9.8 mg/dL (8.3-10.6); Calcium (Corrected) 9.8 mg/dL (8.5-10.1); Carbon Dioxide 27.4 mMol/L (20.0-31.0); Chloride 108 mMol/L (98-107); Creatinine (Component) 2.6 mg/dL (0.6-1.3); Estimated Creatinine Clearance 15.7 mL/min (>60); Glucose 176 mg/dL (74-106); Magnesium 2.6 mg/dL (1.6-2.6); Osmolality,Calculated 292 (275-295); Sodium 140 mMol/L (136-145); Thyroid Stimulating Hormone 2.73 uIU/mL (0.55-4.78); Troponin I < 0.020 ng/mL (0.0-0.045); eGFR 18 See Note
[2024-04-29 20:18] VITALS: BP 226/69; PULSE 79; RESP 18; O2SAT 97
[2024-04-29 20:20] VITALS: BP 226/69; PULSE 79
[2024-04-29] MEDS: cloNIDine HCL 0.1 MG TABLET 0.3 MG PO (20:20)
[2024-04-29] MEDS: oxyCODONE/APAP 5/325 TABLET 2 TAB PO (20:22)
[2024-04-29] MEDS: NITROFURANTOIN MACRO 100 MG CAPSULE PO (20:23)
[2024-04-29 21:27] VITALS: BP 109/68; PULSE 79; RESP 16; O2SAT 99
== END 2024-04-29 21:32 | disposition home or self-care (01) ==
PROVIDERS: Emergency Provider Emergency Medicine
DX: I10 Essential (primary) hypertension (principal); R51.9 Headache, unspecified; Z79.899 Other long term (current) drug therapy; Z91.199 Patient's noncompliance with other medical treatment and regimen due to unspecified reason; Z88.5 Allergy status to narcotic agent; Z88.6 Allergy status to analgesic agent
CPT/HCPCS: 36415; 70450; 71250; 72125; 74176; 80053; 83735; 84443; 84484; 85025; 93005; 99284; A9270

== ENCOUNTER 2024-05-06 14:53 | Emergency (ER) | payer MEDICARE, MEDICAID, SELFPAY ==
[2024-05-06 14:59] VITALS: BP 178/90; PULSE 72; RESP 16; TEMP 36.8; O2SAT 99; BMI 31.1
[2024-05-06 15:19] VITALS: PULSE 69; RESP 18; O2SAT 99
--- NOTE | 2024-05-06 15:35 | PD.EDCHEST ---
ED Chest Pain RME/HPI General Chief Complaint: Chest Pain Stated Complaint: CHEST PAIN Time Seen by Provider: 05/06/24 15:28 Arrival date/time: 05/06/24 14:53 RME / HPI RME / HPI narrative: DR. FREITAS MAIN ED EVALUATION: 83 year old female with past medical history significant for hypertension, diabetes, CHF, hypercholesterolemia presents to the Emergency Department [facility] with complaint of chest pain. Pain is described as aching and rated mild to moderate in severity. Associated symptoms include diffuse head numbness and mild shortness of breath. Patient denies any cough, fevers, chills, or any other symptoms at this time. Related Data Home Medications ?Medication ?Instructions ?Recorded ?Confirmed loratadine 10 mg tablet 10 mg PO QDAY 04/22/21 04/27/24 omeprazole 20 mg capsule,delayed 20 mg PO QDAY 06/20/21 04/27/24 release insulin degludec 200 unit/mL (3 45 unit subcut QDAY 08/12/21 04/27/24 mL) subcutaneous pen (Tresiba FlexTouch U-200 insulin) atorvastatin 20 mg tablet 20 mg PO HS 03/11/22 04/27/24 benzonatate 100 mg capsule 100 mg PO TID 03/11/22 04/27/24 insulin aspart U-100 100 unit/mL 6 unit subcut TIDWM 03/11/22 04/27/24 (3 mL) subcutaneous pen (Novolog FlexPen U-100 Insulin aspart) amitriptyline 25 mg tablet 25 mg PO QDAY PRN Anxiety 01/25/23 04/27/24 diltiazem HCl 240 mg 240 mg PO QDAY 05/19/23 04/27/24 tablet,extended release 24 hr carvedilol 6.25 mg tablet 6.25 mg PO Q12H 04/27/24 04/27/24 losartan 100 mg tablet 100 mg PO DAILY for BP 04/27/24 04/27/24 sertraline 25 mg tablet 25 mg PO HS 04/28/24 04/28/24 Previous Rx's ?Medication ?Instructions ?Recorded amlodipine 10 mg tablet 10 mg PO QDAY #30 tabs 01/27/23 furosemide 40 mg tablet (Lasix) 40 mg PO QAM #30 tabs 05/25/23 losartan 50 mg tablet 50 mg PO QDAY #30 tabs 05/25/23 hydroxyzine pamoate 25 mg capsule 25 mg PO HS #30 caps 06/25/23 pentosan polysulfate sodium 100 mg 100 mg PO TID #90 caps 09/21/23 capsule clonidine HCl 0.1 mg tablet 0.1 mg PO BID #60 tabs 04/12/24 Held on 04/27/24. Instructions: Not taking clonidine HCl 0.1 mg tablet 0.1 mg PO BID #60 tabs 04/29/24 nitrofurantoin 100 mg PO BID 7 days #14 caps 04/30/24 monohydrate/macrocrystals 100 mg capsule (Macrobid) Allergies Allergy/AdvReac Type Severity Reaction Status Date / Time amoxicillin Allergy Severe Vomiting Verified 05/06/24 15:19 codeine Allergy Severe PALPITATION Verified 05/06/24 15:19 S diazepam Allergy Severe RAPID Verified 05/06/24 15:19 HEARTRATE hydrocodone Allergy Severe Vomiting Verified 05/06/24 15:19 hydromorphone Allergy Severe Agitated Verified 05/06/24 15:19 ibuprofen Allergy Severe BLEEDING Verified 05/06/24 15:19 IN STOMACH PER PT meperidine Allergy Severe RAPID Verified 05/06/24 15:19 HEARTRATE morphine Allergy Severe RAPID Verified 05/06/24 15:19 HEARTRATE propoxyphene Allergy Severe RAPID Verified 05/06/24 15:19 HEARTRATE adhesive tape AdvReac Severe Hives Verified 05/06/24 15:19 levofloxacin AdvReac Severe VOMITS Verified 05/06/24 15:19 Review of Systems Review of Systems Systems Reviewed: All systems reviewed, normal except as documented Narrative Review of Systems: GEN: No fever, no chills, no weight loss EYES: No discharge, no visual changes, no pain HEENT: No ear pain, no congestion, no sore throat PULM: + mild shortness of breath, no cough, no congestion CV: + chest pain, no dyspnea on exertion, no palpitations GI: No nausea, no vomiting, no diarrhea, no pain, no constipation : No frequency, no urgency and no dysuria MUSC/SKEL: No joint pain, no back pain SKIN: No rash PSYCH: No hallucinations, no depression HEME/LYMPH: No easy bleeding or bruising tendencies NEURO: No weakness, no headache, + diffuse head numbness Past Medical History Past Medical History NEUROLOGIC: Positive Traumatic Brain Injury; Negative Neurological Disorders, Cerebrovascular Accident, Transient Ischemic Attacks (TIA), Dementia, Alzheimer's Disease, Parkinson's Disease, Brain Tumor, Meningitis, Seizures, Epilepsy, Multiple Sclerosis, Cerebral Palsy, Amyotrophic Lateral Sclerosis (ALS/Lilliam Gehrig's), Guillain-[place] Syndrome, Spina Bifida, Paralysis, Peripheral Neuropathy, Junior's Palsy, Subdural Hematoma, Migraine, Head Trauma or Spinal Cord Injury CARDIAC: Positive Cardiac Disorders, Myocardial Infarction, Hypercholesterolemia, Congestive Heart Failure, Edema, Deep Vein Thrombosis and Hypertension; Negative Cardiac Arrhythmia, Atrial Fibrillation, Angina, Heart Murmur, Coronary Artery Disease, Atherosclerotic Heart Disease, Peripheral Vascular Disease, Aneurysm, Congenital Heart Disease, Valvular Heart Disease, Rheumatic Fever, Cardiomyopathy, Pericarditis, Cellulitis, Hypotension or Varicose Veins RESPIRATORY: Positive Chronic Obstructive Pulmonary Disease (COPD), Asthma, Bronchitis and Pneumonia; Negative Emphysema, Pulmonary Fibrosis, Cystic Fibrosis, Tuberculosis, Pulmonary Embolism, Pulmonary Edema or Sleep Apnea GASTROINTESTINAL: Positive Gastrointestinal Disorders, Gastroesophageal Reflux Disease and Obesity; Negative Hepatitis, Cirrhosis, Pancreatitis, Celiac Disease, Gall Bladder Disease, Gastrointestinal Bleed, Esophageal Varices, Romero's Esophagus, Colitis, Ulcerative Colitis, Diverticulitis, Diverticulosis, Ulcer, Colorectal Cancer, Irritable Bowel, Crohn's Disease, Obstructive Bowel, Hiatal Hernia or Hemorrhoids GENITOURINARY: Positive Genitourinary Disorders and Renal Disease; Negative Kidney Stones, Polycystic Kidney Disease, Neurogenic Bladder, Inguinal Hernia, Dialysis or Benign Prostatic Hyperplasia REPRODUCTIVE: Positive Previous Pregnancies; Negative Breast Cancer, Endometriosis, Genital Herpes, Gonorrhea, Pelvic Inflammatory Disease, Syphilis or Uterine Prolapse MUSCULOSKELETAL: Positive Musculoskeletal Disorders and Arthritis; Negative Muscular Dystrophy, Myasthenia Gravis, Marfan's Syndrome, Bone Cancer, Rheumatoid Arthritis, Osteoporosis, Degenerative Disk Disease, Gout, Scoliosis, Carpal Tunnel Syndrome, Fibromyalgia, Fractures, Degenerative Joint Disease, Osteomyelitis or Poliovirus ENT: Negative Cataracts, Glaucoma, Blind, Retinal Detachment, Macular Degeneration, Ear Infection, Deafness, Head Trauma or Eye Prosthesis ENDOCRINE: Positive Endocrine Disorders and Diabetes Mellitus Type 2; Negative Diabetes Mellitus Type 1, Hypoglycemia, Daniel's Syndrome, Hinton's Disease, Hyperthyroidism, Hypothyroidism, Parathyroid Disease, Pituitary Disease, Systemic Lupus Erythematosus, Syndrome of Inappropriate Antidiuretic Hormone (SIADH), Adrenal Disease or Graves' Disease HEMATOLOGIC: Negative Blood Disorders, Sickle Cell Disease or Clotting Problems PSYCHO/SOCIAL: Positive Anxiety; Negative Psychiatric Problems, Schizophrenia, Recreational Drug Use, Bipolar Disorder, Depression, Behavior Problems, Self-Mutilation, Attention Deficit Disorder, Attention Deficit Hyperactivity Disorder, Depression, Post Traumatic Stress Disorder or Eating Disorder OTHER HISTORY: Positive Hospitalization, Blood Transfusions (1 unit PRBC today 09/18), Chicken Pox, Measles and Mumps; Negative Autoimmune Disease, Down Syndrome, Autism, Developmental Delay, Shingles, Falls, Blood Transfusion Reaction, Anesthesia Reactions, Organ Transplant, Chemotherapy, Radiation Therapy, Hyperbaric Therapy, MRSA, VRSA, Vancomycin-Resistant Enterococci, Human Immunodeficiency Virus (HIV), Rubella (Armenian Measles), Pertussis, Clostridium Difficile, Cancer, Breast Cancer, Cervical Cancer, Colorectal Cancer, Lung Cancer or Ovarian Cancer Family History FAMILY HISTORY: Positive Family Respiratory Disorders, Family Cardiac Disorders and Family Cancer; Negative Family Psychiatric Problems, Family Gastrointestinal Problems, Family Surgery or Family Anesthesia Reaction Surgical History SURGICAL: Positive Angiogram, Abdominal Surgery, Joint Replacement and Hysterectomy; Negative Cardiac Surgery, Open Heart Surgery, Coronary Artery Bypass Graft, Valve Replacement, Vascular Surgery, Coronary Stent, Cardiac Catheterization, Pacemaker, Auto Implanted Cardiovert Defib, Carotid Endarterectomy, Endocrine Surgery, Thyroidectomy, Ear Surgery, Tympanostomy Tube, Eye Surgery, Nose Surgery, Oral Surgery, Tonsillectomy, Adenoidectomy, Cochlear Implant, Corneal Transplant, Throat Surgery, Tracheostomy, Gastric Bypass Surgery, Gastrostomy, Bowel Surgery, Nephrectomy, Amputation, Arthroscopy, Neurologic Surgery, Brain Shunt, Mastectomy, Lumpectomy, Tubal Ligation, Section or Organ Transplant Social History SMOKING STATUS: Never smoker SECOND HAND EXPOSURE: No SUBSTANCE USE: does not use ED Exam Narrative Physical exam: GENERAL APPEARANCE: AxOx4, generally well-appearing, no acute distress. HEENT: NC, AT. MMM. EOMI, clear conjunctiva, oropharynx clear. NECK: Supple without lymphadenopathy. No stiffness or restricted ROM. HEART: Normal rate and regular rhythm, normal S1/S1, no m/r/g LUNGS: CTAB, moving air well. No crackles or wheezes are heard. ABDOMEN: Soft, nontender, nondistended with good bowel sounds heard. BACK: No midline C/T/L spine pain or deformity, No CVAT, no obvious deformity. EXTREMITIES: There is 2+ pitting edema. Without cyanosis or clubbing. MUSCULOSKELETAL: FROM of all major joints. There is reproducible bilateral chest tenderness on palpation. NEUROLOGICAL: Grossly nonfocal. Alert and oriented, moving all 4 extremities. CN not formally tested but appear grossly intact. Observed to ambulate with normal gait. Skin: Warm and dry without any rash. Course Course Course Narrative: 1800: Patient was signed out to Dr. Lopez. Past medical, surgical, social and family history reviewed. Vitals and home medications reviewed. Results and treatment plan discussed. They will assume the care of the patient at this time and will follow the patient, pending second troponin. Quality Measures none Orders Category Date Time Status EKG (ED ONLY) *Do not use* NOW Care 05/06/24 15:39 Completed EKG (ED Only) Stat Exams 05/06/24 15:39 Draft XR chest 1V Stat Exams 05/06/24 15:40 Completed CBC Stat Lab 05/06/24 16:05 Completed CMP [Comprehensive Metabolic Panel] Stat Lab 05/06/24 16:05 Completed Troponin I Stat Lab 05/06/24 16:05 Completed Troponin I Stat Lab 05/06/24 18:05 Ordered Sod Polystyrene Sulfon Susp [Kayexalate Susp] Med 05/06/24 16:59 Discontinued 15 gm PO X1 ONE Vital Signs Vital signs: Vital Signs Temperature 98.3 F 05/06/24 14:59 Pulse Rate 72 05/06/24 14:59 Respiratory Rate 16 05/06/24 14:59 Blood Pressure 178/90 H 05/06/24 14:59 Pulse Oximetry (%) 99 05/06/24 14:59 Oxygen Delivery Method Room Air 05/06/24 14:59 Procedures -ED EKG Interpretation #1: Date of EK05/06/24 Time of EK:14 Rate: 67 Interpretation: Interpreted by me Additional EKG comment: sinus rhythm, rate 67, normal intervals, normal axis, no acute ST-T wave changes. Chest Pain MDM Narrative MDM Narrative:: I, Neida Melendrez am scribing for and in the presence of Dr. Freitas. Patient data External records reviewed:: [facility] previous records (Reviewed last ED visit dated 04/29/24, discharged with the following: Hypertension) and EMS form Clinical information provided by:: patient and EMS Social determinants that could affect healthcare access:: none Patient has the following chronic illnesses:: hypertension, diabetes, CHF, hypercholesterolemia How is presenting disease/condition affected by chronic disease/condition?: exacerbated by Evaluation data The following diagnostics were reviewed and interpreted by me:: lab results, radiology exam(s) and EKG tracing(s) Lab and/or radiology exams considered but not ordered:: none Interpretation Summary: Troponin <0.020 at 1605 hours, pending second trop. RADIOLOGY Procedure(s): XR chest 1V Accession Number(s): [id number] cc: Hemant Freitas MD; Rory Meeks MD~ Examination: AP chest single view Technique one AP portable upright chest single view Exam date and time: May 06, 2024 1606 hrs. Comparison April 23, 2024 Indications: Chest pain beginning 3 days ago. Findings: Normal heart size Ectatic thoracic aorta Accentuation basilar bronchovascular markings. No lobar pneumonia or pulmonary edema Severe osteopenia Impression: Basilar bronchitis pattern Dictated By: Rory Meeks MD Medications / Prescriptions Medications or Prescriptions considered but not ordered:: none Medication administrations:: Medication Administration History Discontinued Medications Sodium Polystyrene Sulfonate (Sod Polystyrene Sulfon Susp 15 Gm/60 Ml Btl) 15 gm PO X1 ONE Stop: 05/06/24 17:00 Last Admin: 05/06/24 17:05 Dose: 15 gm Documented By: KARLOS see above if any Consultations Consultation(s) initiated? (list below): No Diagnosis Chest Pain Differential Diagnosis: atypical chest pain, costochondritis, chest pain and biliary colic Most likely diagnosis given after review of the tests above:: No official diagnoses at this time, still pending diagnostic tests. Patient signout to the telephone solicitor supervisor provider. Admission Indicated Admission indicated?: not indicated Explain why admission is indicated or not indicated:: No final disposition plan at this time, still pending diagnostic tests. Patient signout to the telephone solicitor supervisor provider. Admission Request Was there a request for admission?: No Disposition Plan Disposition Plan: other (specify) (Patient signout to the telephone solicitor supervisor provider, pending second troponin.) Discharge Plan Plan Patient Disposition: HOME (Self Care) Prescriptions/Referrals Prescriptions/Med Rec: No Action loratadine 10 mg tablet 10 mg PO QDAY Patient Comments: TAKE 1 TABLET BY MOUTH EVERY DAY insulin degludec [Tresiba FlexTouch U-200] 200 unit/mL (3 mL) insulin pen 45 unit SUBCUT QDAY omeprazole 20 mg Capsule,Delayed Release(Dr/Ec) 20 mg PO QDAY amitriptyline 25 mg tablet 25 mg PO QDAY PRN (Reason: Anxiety) amlodipine 10 mg tablet 10 mg PO QDAY Qty: 30 0RF diltiazem HCl 240 mg Tablet Extended Release 24 Hr 240 mg PO QDAY furosemide [Lasix] 40 mg tablet 40 mg PO QAM Qty: 30 0RF losartan 50 mg tablet 50 mg PO QDAY Qty: 30 1RF losartan 100 mg tablet 100 mg PO DAILY Patient Comments: TAKE 1 TABLET BY MOUTH EVERY DAY carvedilol 6.25 mg tablet 6.25 mg PO Q12H sertraline 25 mg tablet 25 mg PO HS Patient Comments: TAKE 1 TABLET BY MOUTH AT BEDTIME clonidine HCl 0.1 mg tablet 0.1 mg PO BID Qty: 60 0RF nitrofurantoin monohyd/m-cryst [Macrobid] 100 mg capsule 100 mg PO BID 7 Days Qty: 14 0RF Rx Instructions: must administer with a meal/food atorvastatin 20 mg tablet 20 mg PO HS benzonatate 100 mg capsule 100 mg PO TID Patient Comments: TAKE 1 CAPSULE BY MOUTH TWICE DAILY insulin aspart U-100 [Novolog FlexPen U-100 Insulin] 100 unit/mL (3 mL) insulin pen 6 unit SUBCUT TIDWM Patient Comments: INJECT 10 UNITS UNDER THE SKIN THREE TIMES DAILY WITH MEALS hydroxyzine pamoate 25 mg capsule 25 mg PO HS Qty: 30 0RF pentosan polysulfate sodium 100 mg capsule 100 mg PO TID Qty: 90 3RF clonidine HCl 0.1 mg tablet 0.1 mg PO BID Qty: 60 1RF Problem List Clinical Impression: Chest pain Patient/Caregiver Discharge Instructions Education Materials: ED Chest Pain, Uncertain Cause Additional Instructions: Follow-up with your chief minister, Dr Aliyah Larry, in 2 to 3 days for recheck. You can return to emergency department sooner if symptoms worsen or if he notes any new, concerning issues. Print Language: Pashto Stand Alone Forms: Grace Award Info., Patient Portal Info Letter
--- NOTE | 2024-05-06 15:39 | EKG_ITS ---
[facility] Test Date: 2024-05-06 Pat Name: TYREE NOLASCO Department: Room: - Gender: Female [employer]: : [id number] Requested By: Hemant Ayala Order Number: [id number] Reading MD: Hemant Ayala Measurements Intervals [place] Rate: 67 P: 29 PA: 160 QRS: 16 QRSD: 89 T: 90 QT: 408 QTc: 432 Interpretive Statements SINUS RHYTHM NONSPECIFIC T-WAVE ABNORMALITY Compared to ECG 04/29/2024 20:12:06 Possible ischemia no longer present T-wave abnormality still present /store/S0/[id number]/ecg/[id number].pdf
--- NOTE | 2024-05-06 15:40 | XR_ITS ---
Examination: AP chest single view Technique one AP portable upright chest single view Exam date and time: May 06, 2024 1606 hrs. Comparison April 23, 2024 Indications: Chest pain beginning 3 days ago. Findings: Normal heart size Ectatic thoracic aorta Accentuation basilar bronchovascular markings. No lobar pneumonia or pulmonary edema Severe osteopenia Impression: Basilar bronchitis pattern
[2024-05-06 16:28] LABS: Basophils # (Auto) 0.1 Thou/mm3 (0.0-0.2); Basophils % (Auto) 1 % (0-2.5); Eosinophils # (Auto) 0.1 Thou/mm3 (0.0-0.5); Eosinophils % (Auto) 1 % (0-10); Hematocrit 28.8 % (36.0-46.0); Hemoglobin 9.8 g/dL (12.0-16.0); Immature Granulocytes % (Auto) 0 % (0-0); Immature Granulocytes Auto 0.05 Thou/mm3 (0.00-0.00); Lymphocytes # (Auto) 2.9 Thou/mm3 (1.0-4.8); Lymphocytes % (Auto) 26 % (10-50); Mean Corpuscular Hemoglobin 30.3 pg (25.0-35.0); Mean Corpuscular Volume 89 fL (80-100); Monocytes # (Auto) 0.7 Thou/mm3 (0.0-0.8); Monocytes % (Auto) 6 % (0-12); Neutrophils # (Auto) 7.4 Thou/mm3 (1.8-7.7); Neutrophils % (Auto) 66 % (37-80); Nucleated Red Blood Cell % 0 /100 WBC (0); Platelet Count 244 Thou/mm3 (140-440); RDW Standard Deviation 42.2 fL (36.4-46.3); Red Blood Count 3.23 Miln/mm3 (4.00-5.20); White Blood Count 11.2 Thou/mm3 (3.6-11.0)
[2024-05-06 16:54] LABS: Alanine Aminotransferase 11 U/L (10-49); Albumin, Serum 3.5 gm/dL (3.4-4.8); Albumin/Globulin Ratio 1.4 (1.2-2.2); Alkaline Phosphatase 136 U/L (46-116); Anion Gap 7 (7-16); Aspartate Amino Transferase 12 U/L (0-34); BUN/Creatinine Ratio 18 Ratio (12-20); Bilirubin,Total 0.2 mg/dL (0.3-1.2); Blood Urea Nitrogen 42 mg/dL (9-23); Calcium 8.9 mg/dL (8.3-10.6); Calcium (Corrected) 9.3 mg/dL (8.5-10.1); Carbon Dioxide 27.9 mMol/L (20.0-31.0); Chloride 102 mMol/L (98-107); Creatinine (Component) 2.4 mg/dL (0.6-1.3); Globulin 2.5 gm/dL (2.3-3.5); Glucose 179 mg/dL (74-106); Osmolality,Calculated 288 (275-295); Potassium 5.3 mMol/L (3.4-5.1); Sodium 137 mMol/L (136-145); Troponin I < 0.020 ng/mL (0.0-0.045); eGFR 20 See Note
[2024-05-06] MEDS: SOD POLYSTYRENE SULFON SUSP 15 GM/60 ML BTL PO (17:05)
[2024-05-06 17:23] VITALS: BP 168/91; PULSE 67; RESP 12; TEMP 36.8; O2SAT 98
[2024-05-06 18:47] VITALS: BP 186/96; PULSE 67; RESP 15; TEMP 36.8; O2SAT 96
[2024-05-06 18:50] LABS: Troponin I < 0.020 ng/mL (0.0-0.045)
[2024-05-06 19:15] VITALS: BP 164/90; PULSE 65; RESP 16; TEMP 36.8; O2SAT 97
== END 2024-05-06 19:18 | disposition home or self-care (01) ==
LOC: SERX 17:23
PROVIDERS: Emergency Provider Emergency Medicine
DX: R07.9 Chest pain, unspecified (principal); I11.0 Hypertensive heart disease with heart failure; I50.9 Heart failure, unspecified; E11.9 Type 2 diabetes mellitus without complications; E78.00 Pure hypercholesterolemia, unspecified
CPT/HCPCS: 36415; 71045; 80053; 84484; 85025; 93005; 99283; A9270

== ENCOUNTER 2024-06-04 14:59 | Emergency (ER) | payer MEDICARE, MEDICAID, SELFPAY ==
[2024-06-04] VITALS (7 sets, daily range): BP systolic 174–204; BP diastolic 72–88; PULSE 74–92; RESP 16–22; TEMP 36.7; O2SAT 95–99; BMI 30.9
--- NOTE | 2024-06-04 15:09 | PD.EDCHEST ---
ED Chest Pain RME/HPI General Chief Complaint: Chest Pain Stated Complaint: CHEST WALL PAIN Time Seen by Provider: 06/04/24 15:21 Arrival date/time: 06/04/24 14:59 RME / HPI RME / HPI narrative: DR. MIRANDA MAIN ED EVALUATION: 83 year old female with past medical history significant for hypertension, diabetes, CHF, hypercholesterolemia presents to the Emergency Department [facility] with complaint of chest pain prior to arrival after eating meatball soup. Pain is described as sharp pain and rated mild to moderate in severity. No other symptoms reported. Related Data Home Medications ?Medication ?Instructions ?Recorded ?Confirmed loratadine 10 mg tablet 10 mg PO QDAY 04/22/21 04/27/24 omeprazole 20 mg capsule,delayed 20 mg PO QDAY 06/20/21 04/27/24 release insulin degludec 200 unit/mL (3 45 unit subcut QDAY 08/12/21 04/27/24 mL) subcutaneous pen (Tresiba FlexTouch U-200 insulin) atorvastatin 20 mg tablet 20 mg PO HS 03/11/22 04/27/24 benzonatate 100 mg capsule 100 mg PO TID 03/11/22 04/27/24 insulin aspart U-100 100 unit/mL 6 unit subcut TIDWM 03/11/22 04/27/24 (3 mL) subcutaneous pen (Novolog FlexPen U-100 Insulin aspart) amitriptyline 25 mg tablet 25 mg PO QDAY PRN Anxiety 01/25/23 04/27/24 diltiazem HCl 240 mg 240 mg PO QDAY 05/19/23 04/27/24 tablet,extended release 24 hr carvedilol 6.25 mg tablet 6.25 mg PO Q12H 04/27/24 04/27/24 losartan 100 mg tablet 100 mg PO DAILY for BP 04/27/24 04/27/24 sertraline 25 mg tablet 25 mg PO HS 04/28/24 04/28/24 Previous Rx's ?Medication ?Instructions ?Recorded amlodipine 10 mg tablet 10 mg PO QDAY #30 tabs 01/27/23 furosemide 40 mg tablet (Lasix) 40 mg PO QAM #30 tabs 05/25/23 losartan 50 mg tablet 50 mg PO QDAY #30 tabs 05/25/23 hydroxyzine pamoate 25 mg capsule 25 mg PO HS #30 caps 06/25/23 pentosan polysulfate sodium 100 mg 100 mg PO TID #90 caps 09/21/23 capsule clonidine HCl 0.1 mg tablet 0.1 mg PO BID #60 tabs 04/12/24 Held on 04/27/24. Instructions: Not taking clonidine HCl 0.1 mg tablet 0.1 mg PO BID #60 tabs 04/29/24 Allergies Allergy/AdvReac Type Severity Reaction Status Date / Time amoxicillin Allergy Severe Vomiting Verified 06/04/24 15:17 codeine Allergy Severe PALPITATION Verified 06/04/24 15:17 S diazepam Allergy Severe RAPID Verified 06/04/24 15:17 HEARTRATE hydrocodone Allergy Severe Vomiting Verified 06/04/24 15:17 hydromorphone Allergy Severe Agitated Verified 06/04/24 15:17 ibuprofen Allergy Severe BLEEDING Verified 06/04/24 15:17 IN STOMACH PER PT meperidine Allergy Severe RAPID Verified 06/04/24 15:17 HEARTRATE morphine Allergy Severe RAPID Verified 06/04/24 15:17 HEARTRATE propoxyphene Allergy Severe RAPID Verified 06/04/24 15:17 HEARTRATE adhesive tape AdvReac Severe Hives Verified 06/04/24 15:17 levofloxacin AdvReac Severe VOMITS Verified 06/04/24 15:17 Review of Systems Review of Systems Systems Reviewed: All systems reviewed, normal except as documented Narrative Review of Systems: Constitutional: DENIES: fevers; Eyes: DENIES: loss of vision; Head/Ear/Nose: DENIES: loss of hearing. Throat: DENIES: dysphagia. Cardiovascular: POSITIVES: chest pain DENIES: dyspnea or syncope. Respiratory: DENIES: shortness of breath; Gastrointestinal: DENIES: rectal bleeding or melena. Genitourinary: DENIES: dysuria (painful or difficult urination); Musculoskeletal: DENIES: arthralgia (pain in a joint); Skin: DENIES: rash; Neurological: DENIES: loss of function or movement; Psychiatric: DENIES: recent major life stressor, emotional problem, illicit drug use or abuse; Endocrinology: DENIES: weight change,; Hematologic/Lymphatic: DENIES: abnormal bruising. Allergic/Immunologic: DENIES: urticaria (hives). Past Medical History Past Medical History NEUROLOGIC: Positive Traumatic Brain Injury CARDIAC: Positive Cardiac Disorders, Myocardial Infarction, Hypercholesterolemia, Congestive Heart Failure, Edema, Deep Vein Thrombosis and Hypertension RESPIRATORY: Positive Chronic Obstructive Pulmonary Disease (COPD), Asthma, Bronchitis and Pneumonia GASTROINTESTINAL: Positive Gastrointestinal Disorders, Gastroesophageal Reflux Disease and Obesity GENITOURINARY: Positive Genitourinary Disorders and Renal Disease REPRODUCTIVE: Positive Previous Pregnancies MUSCULOSKELETAL: Positive Musculoskeletal Disorders and Arthritis ENDOCRINE: Positive Endocrine Disorders and Diabetes Mellitus Type 2 PSYCHO/SOCIAL: Positive Anxiety OTHER HISTORY: Positive Hospitalization, Blood Transfusions (1 unit PRBC today 09/18), Chicken Pox, Measles and Mumps Family History FAMILY HISTORY: Positive Family Respiratory Disorders, Family Cardiac Disorders and Family Cancer Surgical History SURGICAL: Positive Angiogram, Abdominal Surgery, Joint Replacement and Hysterectomy Social History SMOKING STATUS: Never smoker SECOND HAND EXPOSURE: No SUBSTANCE USE: does not use ALCOHOL: Never ED Exam Narrative Physical exam: Physical Exam: General: The vital signs were reviewed. Appears anxious playing with the [employer] beads has a high-pitched voice at times the patient is non-toxic, in no apparent distress and appears healthy with a patent airway, no respiratory distress and has no apparent circulatory problems. Head & Scalp: Normocephalic, atraumatic. Face: Appears normal and is without lesions, deformity. Ears: Left external pinna appears normal. Right external pinna appears normal. Eyes: The sclera is anicteric. No obvious photophobia. The Left and Right Orbit/Lid/Conjunctiva appears normal without swelling, discoloration or injection. Nose: The nose is without deformity, discharge or tenderness; Throat: Appears normal. The mucous membranes are pink and moist without exudates, redness or mass seen. The tongue appears normal. Neck: The neck is supple and no apparent mass or adenopathy. Chest: The chest wall is normal in size and symmetry and has no chest wall tenderness or crepitus. The patient displays normal ventilator effort without retractions, accessory muscle use and has adequate air movement bilaterally with no wheezes and no rales. Cardiovascular: Regular rate and rhythm; No murmurs, rubs, or gallops; Gastrointestinal: The abdomen appears normal. No obvious hernias or mass. The abdomen is soft and benign, non-distended, with no pain, no guarding and no rebound tenderness. Bowel sounds are present and normal sounding. No CVA tenderness. Genitourinary: Back/Spine: Nontender normal inspection Extremities/Musculoskeletal/lymphatic: The bilateral upper and lower extremities are warm. There is no evidence of arterial insufficiency. There is no evidence of venous insufficiency/edema. The patient spontaneously moves bilateral upper and lower extremities with no pain and no limitation of movement. There is no apparent, injury or trauma. Skin: The skin is warm, dry and intact. No rashes. No petechia. No purpura. No abnormal bruising. The color is appropriate with no cyanosis. Mental status/Psychiatric: Mental status is appropriate for age. The patient has no apparent delusions, visual hallucinations, no apparent audible hallucinations. The patient has no apparent suicidal thoughts/ideation and no apparent homicidal thoughts/ideation. Neurological: The patient is awake, alert, interactive, cordial, cooperative and is oriented to name and situation. The patient follows commands and answers historical question with no impairment. There is no visual disturbance apparent. The pupils are equal and reactive bilaterally with normal eye movements and no diplopia The bilateral upper and lower extremities have normal strength, normal range of motion and normal functioning. The gait, station and balance appear to be baseline with no acute change Course Quality Measures none Orders Category Date Time Status EKG (ED ONLY) *Do not use* NOW Care 06/04/24 15:22 Completed EKG (ED Only) Stat Exams 06/04/24 15:22 Draft XR chest 1V portable Stat Exams 06/04/24 15:22 Completed B-Type Natriuretic Peptide Stat Lab 06/04/24 15:50 Completed CBC Stat Lab 06/04/24 15:50 Completed Comprehensive Metabolic Panel Stat Lab 06/04/24 15:50 Completed Drug Screen,Urine Stat Lab 06/04/24 15:22 Ordered Lactate (Lactic Acid) Stat Lab 06/04/24 15:50 Completed Lipase Stat Lab 06/04/24 15:50 Completed Magnesium Stat Lab 06/04/24 15:50 Completed Troponin I Stat Lab 06/04/24 15:50 Completed Troponin I Stat Lab 06/04/24 18:50 Ordered Urinalysis Stat Lab 06/04/24 15:22 Ordered Urinalysis, C/S if Indicated Stat Lab 06/04/24 15:22 Ordered Venous Blood Gas Stat Lab 06/04/24 15:50 Completed Aspirin Med 06/04/24 15:22 Discontinued 325 mg PO X1 ONE Nitroglycerin Oint 2% [Nitro-paste Oint 2%] Med 06/04/24 18:31 Once 1 inch TOP X1 ONE hydrALAZINE INJ [Apresoline Inj] Med 06/04/24 18:28 Once 10 mg IV X1 ONE hydrALAZINE INJ [Apresoline Inj] Med 06/04/24 15:25 Discontinued 20 mg IV X1 ONE Vital Signs Vital signs: Vital Signs Pulse Rate 76 06/04/24 15:15 Respiratory Rate 22 H 06/04/24 15:15 Blood Pressure 204/88 H 06/04/24 15:15 Pulse Oximetry (%) 95 06/04/24 15:15 Oxygen Delivery Method Room Air 06/04/24 15:15 Chest Pain MDM Narrative MDM Narrative:: Patient presents with sudden onset of chest pain associated with eating soup patient is quite anxious on arrival. Medical workup was initiated including EKG which reveals a sinus rhythm rate [address] elevation DE present. Portable chest x-ray reveals mild cardiomegaly. There are no infiltrates or effusion. No obvious consolidating pneumonia white count 11.3 hemoglobin is 10.1 venous blood gas pH is 7 3 a pCO2 of 43 sodium 140 potassium 4.0 chloride 106 CO2 26.0 BUN is 42 creatinine is 2.4 and she has chronic/renal insufficiency. with no acute change. Lactic acid came back at 1.1 transaminases and bilirubin are within normal limits. Initial troponin is less than 0.02 BNP is negative. Urinalysis is still pending. Note her initial blood pressure was 204/88. At 4:00 it was 174/72. When back in the room to reevaluated she says her chest pain has subsided then she got anxious and states she needs use the bathroom.. While she may have calm down at this time she is got hypertensive urgency going to give her some hydralazine. Second troponin has been ordered to be drawn at 1850 hrs. and the care goes to Dr. Dillard for reevaluation. Neida Rooney am scribing for and in the presence of Dr. Miranda. Patient data External records reviewed:: [facility] previous records (Reviewed last ED visit dated 05/06/24 discharged with the following: Chest pain) and EMS form Clinical information provided by:: patient and EMS Social determinants that could affect healthcare access:: none Patient has the following chronic illnesses:: hypertension, diabetes, CHF, hypercholesterolemia How is presenting disease/condition affected by chronic disease/condition?: exacerbated by Evaluation data The following diagnostics were reviewed and interpreted by me:: lab results, radiology exam(s) and EKG tracing(s) (EKG#1: EKG at 1530 hours. Interpreted by me: sinus rhythm, rate 73, no STEMI) Lab and/or radiology exams considered but not ordered:: none Interpretation Summary: See above under MDM narrative. RADIOLOGY Procedure(s): XR chest 1V portable Accession Number(s): [id number] cc: Orestes Miranda MD; Rory Meeks MD; COLLIN PERALTA~ Examination: AP chest single view. Any one AP portable semiupright chest single view Exam date and time: June 04, 2024 at 1431 hours INDICATIONS: Chest pain today FINDINGS: Mild prominence left ventricle No pneumonia or pulmonary edema Moderate osteopenia IMPRESSION: No pneumonia or pulmonary edema Dictated By: Rory Meeks MD Medications / Prescriptions Medications or Prescriptions considered but not ordered:: none Medication administrations:: Medication Administration History Nitroglycerin (Nitroglycerin Oint 2% 1 Inch Packet) 1 inch TOP X1 ONE Stop: 06/04/24 18:32 Discontinued Medications Aspirin (Aspirin 325 Mg Tablet) 325 mg PO X1 ONE Stop: 06/04/24 15:23 Last Admin: 06/04/24 15:56 Dose: Not Given Documented By: BD Non-Admin Reason: Cancelled by Provider Hydralazine HCl (Hydralazine Inj 20 Mg/Ml Vial) 20 mg IV X1 ONE Stop: 06/04/24 15:26 Last Admin: 06/04/24 15:53 Dose: 20 mg Documented By: BD Hydralazine HCl (Hydralazine Inj 20 Mg/Ml Vial) 10 mg IV X1 ONE Stop: 06/04/24 18:29 see above if any Consultations Consultation(s) initiated? (list below): No Diagnosis Chest Pain Differential Diagnosis: atypical chest pain, costochondritis, chest pain and biliary colic Most likely diagnosis given after review of the tests above:: Chest pain hypertensive urgency anxiety Admission Indicated Admission indicated?: not indicated Admission Request Was there a request for admission?: No Disposition Plan Disposition Plan: other (specify) (Patient's care is transferred to Dr. Dillard at 1830 hrs. to follow-up on second troponin follow-up on the blood pressure and to dispo accordingly.) Critical Care Time Critical Care Time Critical Care Time: Yes Total Critical Care Time (min.): 45 Attestation: Note this patient presents with chest pain and a blood pressure of 204/80 that came down with some hydralazine. While she is quite anxious this is most likely the cause of her hypertension but the fact she having chest pain associated with a meal does not sound like it is cardiac but it is unknown because of her age and risk factors. Patient is more comfortable at 1830 hrs. but follow-up troponin is pending an additional dose of hydralazine is also offered. The high probability of sudden, clinically significant deterioration in the patient's condition required the highest level of my preparedness to intervene urgently. The services I provided to this patient were to treat and/or prevent clinically significant deterioration. Services included the following: chart data review, reviewing nursing notes and/or old charts, documentation time, interventional sale consultant collaboration regarding findings and treatment options, medication orders and management, direct patient care, vital sign assessments and ordering, interpreting and reviewing diagnostic studies and lab tests. Aggregate critical care time includes only time during which I was engaged in work directly related to the patient's care, as described above, whether at bedside or elsewhere in the Emergency Department. It did not include time spent performing other reported procedures or the services of residents, students, nurses or physician assistants. Discharge Plan Prescriptions/Referrals Prescriptions/Med Rec: No Action loratadine 10 mg tablet 10 mg PO QDAY Patient Comments: TAKE 1 TABLET BY MOUTH EVERY DAY insulin degludec [Tresiba FlexTouch U-200] 200 unit/mL (3 mL) insulin pen 45 unit SUBCUT QDAY omeprazole 20 mg Capsule,Delayed Release(Dr/Ec) 20 mg PO QDAY amitriptyline 25 mg tablet 25 mg PO QDAY PRN (Reason: Anxiety) amlodipine 10 mg tablet 10 mg PO QDAY Qty: 30 0RF diltiazem HCl 240 mg Tablet Extended Release 24 Hr 240 mg PO QDAY furosemide [Lasix] 40 mg tablet 40 mg PO QAM Qty: 30 0RF losartan 50 mg tablet 50 mg PO QDAY Qty: 30 1RF losartan 100 mg tablet 100 mg PO DAILY Patient Comments: TAKE 1 TABLET BY MOUTH EVERY DAY carvedilol 6.25 mg tablet 6.25 mg PO Q12H sertraline 25 mg tablet 25 mg PO HS Patient Comments: TAKE 1 TABLET BY MOUTH AT BEDTIME clonidine HCl 0.1 mg tablet 0.1 mg PO BID Qty: 60 0RF atorvastatin 20 mg tablet 20 mg PO HS benzonatate 100 mg capsule 100 mg PO TID Patient Comments: TAKE 1 CAPSULE BY MOUTH TWICE DAILY insulin aspart U-100 [Novolog FlexPen U-100 Insulin] 100 unit/mL (3 mL) insulin pen 6 unit SUBCUT TIDWM Patient Comments: INJECT 10 UNITS UNDER THE SKIN THREE TIMES DAILY WITH MEALS hydroxyzine pamoate 25 mg capsule 25 mg PO HS Qty: 30 0RF pentosan polysulfate sodium 100 mg capsule 100 mg PO TID Qty: 90 3RF clonidine HCl 0.1 mg tablet 0.1 mg PO BID Qty: 60 1RF Referrals: Collin Peralta PA-C [Primary Care Provider] - In 1 week Problem List Clinical Impression: Chest pain, Hypertensive urgency, Chronic renal insufficiency Patient/Caregiver Discharge Instructions Print Language: Libyan
--- NOTE | 2024-06-04 15:22 | XR_ITS ---
Examination: AP chest single view. Any one AP portable semiupright chest single view Exam date and time: June 04, 2024 at 1431 hours INDICATIONS: Chest pain today FINDINGS: Mild prominence left ventricle No pneumonia or pulmonary edema Moderate osteopenia IMPRESSION: No pneumonia or pulmonary edema
--- NOTE | 2024-06-04 15:22 | EKG_ITS ---
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
[2024-06-04] MEDS: hydrALAZINE INJ 20 MG/ML VIAL IV (15:53)
[2024-06-04 16:05] LABS: Lactate (Lactic Acid) 1.1 mMol/L (0.4-2.0)
[2024-06-04 16:06] LABS: Base Excess, Venous 0 (-3-3); O2 Saturation, Venous 84 % (96-97); PCO2, Venous 43 mmHg (36-56); PO2, Venous 43 mmHg (15-58); pH, Venous 7.38 (7.33-7.66)
[2024-06-04 16:13] LABS: Basophils # (Auto) 0.1 Thou/mm3 (0.0-0.2); Basophils % (Auto) 1 % (0-2.5); Eosinophils # (Auto) 0.2 Thou/mm3 (0.0-0.5); Eosinophils % (Auto) 2 % (0-10); Hemoglobin 10.1 g/dL (12.0-16.0); Immature Granulocytes % (Auto) 1 % (0-0); Immature Granulocytes Auto 0.11 Thou/mm3 (0.00-0.00); Lymphocytes % (Auto) 26 % (10-50); Mean Corpuscular HGB Conc 33.7 g/dl (31.0-37.0); Mean Corpuscular Hemoglobin 29.9 pg (25.0-35.0); Mean Corpuscular Volume 89 fL (80-100); Monocytes # (Auto) 0.6 Thou/mm3 (0.0-0.8); Monocytes % (Auto) 5 % (0-12); Neutrophils # (Auto) 7.5 Thou/mm3 (1.8-7.7); Neutrophils % (Auto) 66 % (37-80); Nucleated Red Blood Cell % 0 /100 WBC (0); Platelet Count 249 Thou/mm3 (140-440); RDW Standard Deviation 43.5 fL (36.4-46.3); Red Blood Count 3.38 Miln/mm3 (4.00-5.20); White Blood Count 11.3 Thou/mm3 (3.6-11.0)
[2024-06-04 16:26] LABS: B-Type Natriuretic Peptide 92 pg/mL (0-100)
[2024-06-04 16:27] LABS: Alanine Aminotransferase 17 U/L (10-49); Albumin, Serum 3.8 gm/dL (3.4-4.8); Albumin/Globulin Ratio 1.5 (1.2-2.2); Alkaline Phosphatase 147 U/L (46-116); Anion Gap 8 (7-16); Aspartate Amino Transferase 13 U/L (0-34); BUN/Creatinine Ratio 18 Ratio (12-20); Bilirubin,Total 0.2 mg/dL (0.3-1.2); Blood Urea Nitrogen 42 mg/dL (9-23); Calcium 9.1 mg/dL (8.3-10.6); Calcium (Corrected) 9.3 mg/dL (8.5-10.1); Chloride 106 mMol/L (98-107); Creatinine (Component) 2.4 mg/dL (0.6-1.3); Globulin 2.6 gm/dL (2.3-3.5); Glucose 217 mg/dL (74-106); Lipase 57 U/L (12-53); Magnesium 2.2 mg/dL (1.6-2.6); Osmolality,Calculated 296 (275-295); Sodium 140 mMol/L (136-145); Total Protein 6.4 gm/dL (5.7-8.2); Troponin I < 0.020 ng/mL (0.0-0.045); eGFR 20 See Note
--- NOTE | 2024-06-04 18:37 | PC.NURSE ---
WILL LET DR. FIDE HANSEN PT WANTING TO GO HOME AND NOT WANTING ANY MEDS
[2024-06-04] MEDS: NITROGLYCERIN OINT 2% 1 INCH PACKET TOP (18:50)
[2024-06-04] MEDS: hydrALAZINE INJ 20 MG/ML VIAL 10 MG IV (18:52)
[2024-06-04 19:23] LABS: Troponin I < 0.020 ng/mL (0.0-0.045)
--- NOTE | 2024-06-04 19:38 | EDNOTE_ITS ---
Emergency Room Addendum Addendum Narrative: I took over the care from Dr. Chilel at 6 PM on 06/04/2024, see his notes for complete H&P and ED course. I reviewed all diagnostic test results. At this point, diagnoses include chest wall pain, hypertensive urgency, CKD. Significant improvement noted after treatments given previously and Percocet by me. Recommended more outpatient workup. Based on my best medical judgment, made decision no further evaluation or treatment indicated at this time. Patient understands and agrees to the discharge instructions customized and printed, see below. Discharge instructions from Dr. Dillard: 1. After extensive evaluation, there is no life-threatening condition.? Such as heart attack or pneumothorax (collapsed lung). 2. Your pain is originating from the chest wall and not from an internal organ.? The chest wall has many joints and muscles between the ribs, so sprains and strains are common.?? 3. Apply ice or heat if helpful.? Percocets for severe pain. 4. See a private doctor on 06/05/2024 for recheck and further care, including your high BP. To make sure there is no serious underlying heart condition, ask to help you get more tests for your heart that cannot be done here in the ER.? Such as Holter Monitor (cardiac monitoring at home from a day to even a month), heart stress test (on treadmill or with medication), echocardiogram (imaging of your heart structures), heart catherization (checking for blockages in your heart vernell ivan), and a referral to see a Merchandise [employer]ocker.? 5. Seek immediate medical care with worsening or with any concerns.?? Henry Dillard MD
[2024-06-04] MEDS: oxyCODONE/APAP 5/325 TABLET 1 TAB PO (19:47)
== END 2024-06-04 21:02 | disposition home or self-care (01) ==
PROVIDERS: Emergency Medicine; Emergency Provider Emergency Medicine; PCP Physician Assistant
DX: I16.0 Hypertensive urgency (principal); I13.0 Hypertensive heart and chronic kidney disease with heart failure and stage 1 through stage 4 chronic kidney disease, or unspecified chronic kidney disease; E11.22 Type 2 diabetes mellitus with diabetic chronic kidney disease; R07.9 Chest pain, unspecified; R94.31 Abnormal electrocardiogram [ECG] [EKG]; E78.00 Pure hypercholesterolemia, unspecified; I50.9 Heart failure, unspecified; I25.2 Old myocardial infarction; N18.9 Chronic kidney disease, unspecified; Z79.4 Long term (current) use of insulin
CPT/HCPCS: 36415; 71045; 80053; 80307; 81001; 82803; 83605; 83690; 83735; 83880; 84484; 85025; 93005; 99291; J0360; A9270

== ENCOUNTER 2024-06-08 11:33 | Emergency (ER) | payer MEDICARE, MEDICAID, SELFPAY ==
[2024-06-08 11:34] VITALS: BP 172/84; PULSE 71; RESP 18; TEMP 36.7; O2SAT 95
[2024-06-08 11:35] VITALS: BMI 31.4
[2024-06-08 12:03] VITALS: PULSE 76; RESP 18; O2SAT 98
--- NOTE | 2024-06-08 12:37 | PD.EDADULT ---
ED General RME/HPI General Chief complaint: General Adult/Misc Complain Stated complaint: HAND NUMBNESS Time Seen by Provider: 06/08/24 11:46 Arrival date/time: 06/08/24 11:33 RME / HPI RME / HPI narrative: 83-year-old female patient with significant history of hypertension chronic kidney disease came in for evaluation regarding numbness bilateral hands. Onset of symptoms since 9 this morning as sudden onset of bilateral hand numbness, and neck pain, after drinking his blood pressure medication. Patient felt nauseated. Denies any slurring of speech denies any weakness to upper or lower extremities. Patient call 911 and was brought in by EMS. Patient was just seen her a week ago for elevated blood pressure. Patient denies any chest pain. Denies any blurry vision. Denies any dizziness. Denies any headache. Denies any other complaints Related Data Home Medications ?Medication ?Instructions ?Recorded ?Confirmed loratadine 10 mg tablet 10 mg PO QDAY 04/22/21 04/27/24 omeprazole 20 mg capsule,delayed 20 mg PO QDAY 06/20/21 04/27/24 release insulin degludec 200 unit/mL (3 45 unit subcut QDAY 08/12/21 04/27/24 mL) subcutaneous pen (Tresiba FlexTouch U-200 insulin) atorvastatin 20 mg tablet 20 mg PO HS 03/11/22 04/27/24 benzonatate 100 mg capsule 100 mg PO TID 03/11/22 04/27/24 insulin aspart U-100 100 unit/mL 6 unit subcut TIDWM 03/11/22 04/27/24 (3 mL) subcutaneous pen (Novolog FlexPen U-100 Insulin aspart) amitriptyline 25 mg tablet 25 mg PO QDAY PRN Anxiety 01/25/23 04/27/24 diltiazem HCl 240 mg 240 mg PO QDAY 05/19/23 04/27/24 tablet,extended release 24 hr carvedilol 6.25 mg tablet 6.25 mg PO Q12H 04/27/24 04/27/24 losartan 100 mg tablet 100 mg PO DAILY for BP 04/27/24 04/27/24 sertraline 25 mg tablet 25 mg PO HS 04/28/24 04/28/24 Previous Rx's ?Medication ?Instructions ?Recorded amlodipine 10 mg tablet 10 mg PO QDAY #30 tabs 01/27/23 furosemide 40 mg tablet (Lasix) 40 mg PO QAM #30 tabs 05/25/23 losartan 50 mg tablet 50 mg PO QDAY #30 tabs 05/25/23 hydroxyzine pamoate 25 mg capsule 25 mg PO HS #30 caps 06/25/23 pentosan polysulfate sodium 100 mg 100 mg PO TID #90 caps 09/21/23 capsule clonidine HCl 0.1 mg tablet 0.1 mg PO BID #60 tabs 04/12/24 Held on 04/27/24. Instructions: Not taking clonidine HCl 0.1 mg tablet 0.1 mg PO BID #60 tabs 04/29/24 oxycodone-acetaminophen 5 mg-325 2 tab PO Q8H PRN pain #20 tabs 06/04/24 mg tablet (Percocet) Allergies Allergy/AdvReac Type Severity Reaction Status Date / Time amoxicillin Allergy Severe Vomiting Verified 06/04/24 15:17 codeine Allergy Severe PALPITATION Verified 06/04/24 15:17 S diazepam Allergy Severe RAPID Verified 06/04/24 15:17 HEARTRATE hydrocodone Allergy Severe Vomiting Verified 06/04/24 15:17 hydromorphone Allergy Severe Agitated Verified 06/04/24 15:17 ibuprofen Allergy Severe BLEEDING Verified 06/04/24 15:17 IN STOMACH PER PT meperidine Allergy Severe RAPID Verified 06/04/24 15:17 HEARTRATE morphine Allergy Severe RAPID Verified 06/04/24 15:17 HEARTRATE propoxyphene Allergy Severe RAPID Verified 06/04/24 15:17 HEARTRATE adhesive tape AdvReac Severe Hives Verified 06/04/24 15:17 levofloxacin AdvReac Severe VOMITS Verified 06/04/24 15:17 Review of Systems Review of Systems Narrative Review of Systems: Review of system reviewed and within normal limits except mentioned in HPI ED Exam Narrative Physical exam: VITAL SIGNS: Reviewed. GENERAL APPEARANCE: Alert and interactive, follows commands, no acute distress, HEAD AND FACE: Non-traumatic. ENT: PERRL, pink conjunctivitis, eyelid no trauma, Mucous membrane moist. NECK: Supple, nontender, no nuchal rigidity. CHEST: No tenderness, no crepitus, no paradoxical movement, no retractions. LUNGS: Clear, well ventilated, symmetric, no rales, no wheezing, no ronchi, no stridor, good breath sounds bilaterally. HEART: Regular rate, regular rhythm, no murmur, no gallops. ABDOMEN: Soft, positive bowel sounds, nondistended, no guarding, nontender, no rebound, no masses, RECTAL: Deferred. GENITAL: Deferred. NEUROLOGICAL: Gross motor function intact sensory function intact, Appropriate for age. MUSCULOSKELETAL: low back nontender, full range of motion. EXTREMITIES: Nontender, full range of motion. SKIN: Color pink, dry, no rash, no lacerations, no abrasions, no contusions. LYMPHATICS: Deferred. Course Quality Measures none Orders Category Date Time Status Acetaminophen Tab [Tylenol ES Tab] Med 06/08/24 12:36 Discontinued 1,000 mg PO X1 ONE Famotidine [Pepcid] Med 06/08/24 12:36 Discontinued 40 mg PO X1 ONE Ondansetron Odt [Zofran Odt] Med 06/08/24 12:36 Discontinued 4 mg PO X1 ONE Vital Signs Vital signs: Vital Signs Temperature 98.0 F 06/08/24 11:34 Pulse Rate 71 06/08/24 11:34 Respiratory Rate 18 06/08/24 11:34 Blood Pressure 172/84 H 06/08/24 11:34 Pulse Oximetry (%) 95 06/08/24 11:34 Oxygen Delivery Method Room Air 06/08/24 11:34 [facility] Patient data External records reviewed:: None Clinical information provided by:: patient Social determinants that could affect healthcare access:: none Patient has the following chronic illnesses:: Hypertension although pt's initial presentation was concerning, Pt now reports feeling better after Ativan and has an unremarkable vital signs. Stable for D/C. Hydroxyzine given as needed How is presenting disease/condition affected by chronic disease/condition?: exacerbated by Evaluation data The following diagnostics were reviewed and interpreted by me:: other (specify) (None) Lab and/or radiology exams considered but not ordered:: None Interpretation Summary: None Medications Medications considered but not ordered:: None Medication administrations:: Medication Administration History Discontinued Medications Acetaminophen (Acetaminophen 500 Mg Tablet) 1,000 mg PO X1 ONE Stop: 06/08/24 12:37 Last Admin: 06/08/24 12:47 Dose: 1,000 mg Documented By: Famotidine (Famotidine 20 Mg Tablet) 40 mg PO X1 ONE Stop: 06/08/24 12:37 Last Admin: 06/08/24 12:48 Dose: Not Given Documented By: Non-Admin Reason: Patient Refused Ondansetron HCl (Ondansetron Odt 4 Mg Tabrap) 4 mg PO X1 ONE; Protocol Stop: 06/08/24 12:37 Last Admin: 06/08/24 12:48 Dose: Not Given Documented By: Non-Admin Reason: Patient Refused Zofran Pepcid and Tylenol Consultations Consultation(s) initiated? (list below): No Diagnosis Differential Diagnosis ED Complaint MDM: Anxiety, paresthesia, adverse effect of medications Most likely diagnosis given after review of the tests above:: Paresthesia bilateral hands Admission Indicated Admission indicated?: not indicated Explain why admission is indicated or not indicated:: None Admission Request Was there a request for admission?: No Disposition Plan Disposition Plan: Discharge Discharge Attestation Discharge Attestation: The patient was given an opportunity to ask questions and understood the discharge instructions. Discharge instructions specifically effects, indications for sooner follow up or return to the emergency department, and the expected course of current diagnosis. Patient condition: Stable Medical Decision Making MDM Narrative MDM Narrative: 83-year-old female patient with significant history of hypertension chronic kidney disease came in for evaluation regarding numbness bilateral hands. Onset of symptoms since 9 this morning as sudden onset of bilateral hand numbness, and neck pain, after drinking his blood pressure medication. Patient felt nauseated. Denies any slurring of speech denies any weakness to upper or lower extremities. Patient call 911 and was brought in by EMS. Patient was just seen her a week ago for elevated blood pressure. Patient denies any chest pain. Denies any blurry vision. Denies any dizziness. Denies any headache. Denies any other complaints I reviewed patient's laboratory workup that was done recently, less than a week ago. Patient currently is refusing to have another laboratory workup. She told me that she is ready to go home. She told me that her numbness is totally gone except for posterior neck pain severity mild. She told me that her grandson will pick her up. Patient's blood pressure was noted to be 172/84. Pulse rate of 71. Patient appears nontoxic and hemodynamically stable. Patient discharged home and instructed to follow-up with primary care provider in 24 to 48 hours. Instructed to return to the emergency department immediately if worsening of symptoms Differential Diagnosis Differential Diagnosis: Anxiety, paresthesia, adverse effect of medications Discharge Plan Plan Patient Disposition: HOME (Self Care) Disposition Comment: stable Prescriptions/Referrals Prescriptions/Med Rec: No Action loratadine 10 mg tablet 10 mg PO QDAY Patient Comments: TAKE 1 TABLET BY MOUTH EVERY DAY insulin degludec [Tresiba FlexTouch U-200] 200 unit/mL (3 mL) insulin pen 45 unit SUBCUT QDAY omeprazole 20 mg Capsule,Delayed Release(Dr/Ec) 20 mg PO QDAY amitriptyline 25 mg tablet 25 mg PO QDAY PRN (Reason: Anxiety) amlodipine 10 mg tablet 10 mg PO QDAY Qty: 30 0RF diltiazem HCl 240 mg Tablet Extended Release 24 Hr 240 mg PO QDAY furosemide [Lasix] 40 mg tablet 40 mg PO QAM Qty: 30 0RF losartan 50 mg tablet 50 mg PO QDAY Qty: 30 1RF losartan 100 mg tablet 100 mg PO DAILY Patient Comments: TAKE 1 TABLET BY MOUTH EVERY DAY carvedilol 6.25 mg tablet 6.25 mg PO Q12H sertraline 25 mg tablet 25 mg PO HS Patient Comments: TAKE 1 TABLET BY MOUTH AT BEDTIME clonidine HCl 0.1 mg tablet 0.1 mg PO BID Qty: 60 0RF oxycodone-acetaminophen [Percocet] 5-325 mg tablet 2 tab PO Q8H MDD 6 PRN (Reason: pain) Qty: 20 0RF atorvastatin 20 mg tablet 20 mg PO HS benzonatate 100 mg capsule 100 mg PO TID Patient Comments: TAKE 1 CAPSULE BY MOUTH TWICE DAILY insulin aspart U-100 [Novolog FlexPen U-100 Insulin] 100 unit/mL (3 mL) insulin pen 6 unit SUBCUT TIDWM Patient Comments: INJECT 10 UNITS UNDER THE SKIN THREE TIMES DAILY WITH MEALS hydroxyzine pamoate 25 mg capsule 25 mg PO HS Qty: 30 0RF pentosan polysulfate sodium 100 mg capsule 100 mg PO TID Qty: 90 3RF clonidine HCl 0.1 mg tablet 0.1 mg PO BID Qty: 60 1RF Problem List Clinical Impression: Paresthesia of both hands, Nausea Patient/Caregiver Discharge Instructions Discharge Activity: activity as tolerated Education Materials: ED Paraesthesias Additional Instructions: Thank you for the opportunity for serving you today. You are stable for discharged . You are advised to: Follow-up with your PCP in 1 to 2 days Return to ED for worsening of symptoms Increase oral fluids Print Language: Welsh Stand Alone Forms: [facility] Award Info., Patient Portal Info Letter
[2024-06-08] MEDS: ACETAMINOPHEN 500 MG TABLET 1000 MG PO (12:47)
== END 2024-06-08 12:56 | disposition home or self-care (01) ==
LOC: SERX 13:04
PROVIDERS: Emergency Provider Emergency Medicine; PCP Physician Assistant
DX: R20.2 Paresthesia of skin (principal); R20.0 Anesthesia of skin; R11.0 Nausea; M54.2 Cervicalgia
CPT/HCPCS: 99282; A9270

== ENCOUNTER 2024-07-20 14:24 | Emergency (ER) | payer MEDICARE, MEDICAID, SELFPAY ==
[2024-07-20 14:32] VITALS: BP 160/80; PULSE 81; RESP 18; TEMP 36.9; O2SAT 94
[2024-07-20 14:47] VITALS: PULSE 84; RESP 16; O2SAT 96
[2024-07-20 14:51] VITALS: BMI 32.3
--- NOTE | 2024-07-20 15:07 | XR_ITS ---
Examination: CT abdomen and pelvis without contrast. Coronal 3-D reconstructions. Sagittal 2-D reconstructions. Date and time of exam:July 20, 2024 at 1513 hours Comparison April 29, 2024 INDICATIONS: Lower abdominal pain with dark stools today CTDI: vol (mGy): 9.37 DLP: (mGycm): 540 Technique: Axial images of the abdomen have been obtained, 3 mm slice thickness Intravenous contrast material has not been administered. Low dose protocols were performed. One or more of the following dose reduction techniques were used; automated exposure control, adjustment of the mA and/or KV according to patient size, use of iterative reconstruction technique. Findings: No focal liver or splenic lesions Absent gallbladder No pancreatic or adrenal mass Moderate bilateral renal parenchymal scar formation Abdominal aortic calcification no aneurysmal dilatation No pericecal inflammatory change No bowel obstruction No diverticulitis No rectal wall thickening Absent uterus No adnexal mass Moderate osteopenia Urinary bladder intact IMPRESSION: No acute process in the abdomen or pelvis
--- NOTE | 2024-07-20 15:08 | PD.EDRME ---
Rapid Medical Screening Exam [facility] Arrival date/time: 07/20/24 14:24 83-year-old female with a history of hyperlipidemia, hypertension, type 2 diabetes presents to the emergency room with a chief complaint of 8 out of 10 epigastric pain that radiates to the right upper quadrant. Patient also states she is having nausea and diarrhea. I have greeted and performed a focused initial assessment of this patient. A comprehensive ED assessment and evaluation of the patient, analysis of all test results, and completion of the medical decision making process will be conducted by additional ED providers. Chief Complaint: Abdominal Pain Time Seen by Provider: 07/20/24 15:00 Vital signs: Vital Signs Temperature 98.4 F 07/20/24 14:32 Pulse Rate 81 07/20/24 14:32 Respiratory Rate 18 07/20/24 14:32 Blood Pressure 160/80 H 07/20/24 14:32 Pulse Oximetry (%) 94 L 07/20/24 14:32 Oxygen Delivery Method Room Air 07/20/24 14:32 Vital signs reviewed by provider: Yes
[2024-07-20 15:38] LABS: Basophils # (Auto) 0.1 Thou/mm3 (0.0-0.2); Basophils % (Auto) 0 % (0-2.5); Eosinophils # (Auto) 0.1 Thou/mm3 (0.0-0.5); Eosinophils % (Auto) 1 % (0-10); Hematocrit 28.8 % (36.0-46.0); Immature Granulocytes % (Auto) 1 % (0-0); Immature Granulocytes Auto 0.08 Thou/mm3 (0.00-0.00); Lymphocytes # (Auto) 2.9 Thou/mm3 (1.0-4.8); Lymphocytes % (Auto) 25 % (10-50); Mean Corpuscular HGB Conc 34.7 g/dl (31.0-37.0); Mean Corpuscular Hemoglobin 30.2 pg (25.0-35.0); Mean Corpuscular Volume 87 fL (80-100); Monocytes # (Auto) 0.7 Thou/mm3 (0.0-0.8); Monocytes % (Auto) 5 % (0-12); Neutrophils # (Auto) 8.1 Thou/mm3 (1.8-7.7); Neutrophils % (Auto) 68 % (37-80); Nucleated Red Blood Cell % 0 /100 WBC (0); Platelet Count 254 Thou/mm3 (140-440); RDW Standard Deviation 42.1 fL (36.4-46.3); Red Blood Count 3.31 Miln/mm3 (4.00-5.20); White Blood Count 11.9 Thou/mm3 (3.6-11.0)
[2024-07-20 16:00] LABS: Alanine Aminotransferase 32 U/L (10-49); Albumin, Serum 3.9 gm/dL (3.4-4.8); Albumin/Globulin Ratio 1.4 (1.2-2.2); Alkaline Phosphatase 180 U/L (46-116); Anion Gap 6 (7-16); Aspartate Amino Transferase 39 U/L (0-34); BUN/Creatinine Ratio 16 Ratio (12-20); Bilirubin,Total 0.3 mg/dL (0.3-1.2); Blood Urea Nitrogen 42 mg/dL (9-23); Calcium 8.8 mg/dL (8.3-10.6); Calcium (Corrected) 8.9 mg/dL (8.5-10.1); Carbon Dioxide 30.5 mMol/L (20.0-31.0); Chloride 102 mMol/L (98-107); Creatinine (Component) 2.7 mg/dL (0.6-1.3); Estimated Creatinine Clearance 15.4 mL/min (>60); Globulin 2.7 gm/dL (2.3-3.5); Glucose 209 mg/dL (74-106); Lipase 35 U/L (12-53); Osmolality,Calculated 292 (275-295); Potassium 3.9 mMol/L (3.4-5.1); Sodium 138 mMol/L (136-145); Total Protein 6.6 gm/dL (5.7-8.2); eGFR 17 See Note
[2024-07-20] MEDS: ONDANSETRON ODT 4 MG TABRAP PO (16:19)
--- NOTE | 2024-07-20 17:20 | PD.EDABDPN ---
ED Abdominal Pain RME/HPI General Chief Complaint: Abdominal Pain Stated complaint: ABDOMINAL PAIN Time seen by provider: 07/20/24 15:00 Arrival date/time: 07/20/24 14:24 Limitations: no limitations RME / HPI RME / HPI narrative: 07/20/24 14:24 83-year-old female with a history of hyperlipidemia, hypertension, type 2 diabetes presents to the emergency room with a chief complaint of 8 out of 10 epigastric pain that radiates to the right upper quadrant. Patient also states she is having nausea and diarrhea. I have greeted and performed a focused initial assessment of this patient. A comprehensive ED assessment and evaluation of the patient, analysis of all test results, and completion of the medical decision making process will be conducted by additional ED providers. DR. FLOWERS MAIN ED EVALUATION: 83 year old female with history of hypertension and diabetes presented to the ED for evaluation of abdominal pain beginning after waking this morning. States majority of pain is located to the epigastric region, described as aching in sensation, rating 8/10. Accompanied by cotton mouth and diarrhea. States she has had 5 episodes of nonbloody diarrhea since 01:00 PM today. No other associated symptoms or complaints reported. Denies fevers, chills, chest pain, cough, shortness of breath, vomiting, or urinary symptoms. Related Data Home Medications ?Medication ?Instructions ?Recorded ?Confirmed loratadine 10 mg tablet 10 mg PO QDAY 04/22/21 04/27/24 omeprazole 20 mg capsule,delayed 20 mg PO QDAY 06/20/21 04/27/24 release insulin degludec 200 unit/mL (3 45 unit subcut QDAY 08/12/21 04/27/24 mL) subcutaneous pen (Tresiba FlexTouch U-200 insulin) atorvastatin 20 mg tablet 20 mg PO HS 03/11/22 04/27/24 benzonatate 100 mg capsule 100 mg PO TID 03/11/22 04/27/24 insulin aspart U-100 100 unit/mL 6 unit subcut TIDWM 03/11/22 04/27/24 (3 mL) subcutaneous pen (Novolog FlexPen U-100 Insulin aspart) amitriptyline 25 mg tablet 25 mg PO QDAY PRN Anxiety 01/25/23 04/27/24 diltiazem HCl 240 mg 240 mg PO QDAY 05/19/23 04/27/24 tablet,extended release 24 hr carvedilol 6.25 mg tablet 6.25 mg PO Q12H 04/27/24 04/27/24 losartan 100 mg tablet 100 mg PO DAILY for BP 04/27/24 04/27/24 sertraline 25 mg tablet 25 mg PO HS 04/28/24 04/28/24 Previous Rx's ?Medication ?Instructions ?Recorded amlodipine 10 mg tablet 10 mg PO QDAY #30 tabs 01/27/23 furosemide 40 mg tablet (Lasix) 40 mg PO QAM #30 tabs 05/25/23 losartan 50 mg tablet 50 mg PO QDAY #30 tabs 05/25/23 hydroxyzine pamoate 25 mg capsule 25 mg PO HS #30 caps 06/25/23 pentosan polysulfate sodium 100 mg 100 mg PO TID #90 caps 09/21/23 capsule clonidine HCl 0.1 mg tablet 0.1 mg PO BID #60 tabs 04/12/24 Held on 04/27/24. Instructions: Not taking clonidine HCl 0.1 mg tablet 0.1 mg PO BID #60 tabs 04/29/24 oxycodone-acetaminophen 5 mg-325 2 tab PO Q8H PRN pain #20 tabs 06/04/24 mg tablet (Percocet) Allergies Allergy/AdvReac Type Severity Reaction Status Date / Time amoxicillin Allergy Severe Vomiting Verified 06/04/24 15:17 codeine Allergy Severe PALPITATION Verified 06/04/24 15:17 S diazepam Allergy Severe RAPID Verified 06/04/24 15:17 HEARTRATE hydrocodone Allergy Severe Vomiting Verified 06/04/24 15:17 hydromorphone Allergy Severe Agitated Verified 06/04/24 15:17 ibuprofen Allergy Severe BLEEDING Verified 06/04/24 15:17 IN STOMACH PER PT meperidine Allergy Severe RAPID Verified 06/04/24 15:17 HEARTRATE morphine Allergy Severe RAPID Verified 06/04/24 15:17 HEARTRATE propoxyphene Allergy Severe RAPID Verified 06/04/24 15:17 HEARTRATE adhesive tape AdvReac Severe Hives Verified 06/04/24 15:17 levofloxacin AdvReac Severe VOMITS Verified 06/04/24 15:17 Review of Systems Review of Systems Narrative Review of Systems: GEN: No fever, no chills, no weight loss EYES: No discharge, no visual changes, no pain HEENT: No ear pain, no congestion, no sore throat, + cotton mouth PULM: No shortness of breath, no cough, no congestion CV: No chest pain, no dyspnea on exertion, no palpitations GI: No nausea, no vomiting, +diarrhea, + pain, no constipation : No frequency, no urgency, no dysuria MUSC/SKEL: No joint pain, no back pain SKIN: No rash NEURO: No weakness, no headache Past Medical History Past Medical History NEUROLOGIC: Positive Traumatic Brain Injury CARDIAC: Positive Cardiac Disorders, Myocardial Infarction, Hypercholesterolemia, Congestive Heart Failure, Edema, Deep Vein Thrombosis and Hypertension RESPIRATORY: Positive Chronic Obstructive Pulmonary Disease (COPD), Asthma, Bronchitis and Pneumonia GASTROINTESTINAL: Positive Gastrointestinal Disorders, Gastroesophageal Reflux Disease and Obesity GENITOURINARY: Positive Genitourinary Disorders and Renal Disease REPRODUCTIVE: Positive Previous Pregnancies MUSCULOSKELETAL: Positive Musculoskeletal Disorders and Arthritis ENDOCRINE: Positive Endocrine Disorders and Diabetes Mellitus Type 2 PSYCHO/SOCIAL: Positive Anxiety OTHER HISTORY: Positive Hospitalization, Blood Transfusions (1 unit PRBC today 09/18), Chicken Pox, Measles and Mumps Family History FAMILY HISTORY: Positive Family Respiratory Disorders, Family Cardiac Disorders and Family Cancer; Negative Family Surgery Surgical History SURGICAL: Positive Angiogram, Abdominal Surgery, Joint Replacement and Hysterectomy Social History SMOKING STATUS: Never smoker SECOND HAND EXPOSURE: No SUBSTANCE USE: does not use ED Exam General Limitations: Present no limitations General appearance: Present alert and in no apparent distress Head Head exam: Present atraumatic Eye Eye exam: Present normal appearance, PERRL and EOMI ENT ENT exam: Present normal exam, normal oropharynx and mucous membranes moist Neck Neck exam: Present normal inspection, full ROM and trachea midline Chest Chest inspection: Present normal inspection and symmetric chest wall rise Respiratory Respiratory exam: Present normal lung sounds bilaterally Cardiovascular Cardiovascular exam: Present regular rate, normal rhythm and normal heart sounds Abdominal Exam Abdominal exam: Present soft and normal bowel sounds Extremities Exam Extremities exam: Present normal inspection and full ROM Back Exam Back exam: Present normal inspection and full ROM Neurological Exam Neurological exam: Present alert, oriented X3 and CN II-XII intact Psychiatric Psychiatric exam: Present normal affect and normal mood Skin Skin exam: Present warm, dry, intact and normal color Course Quality Measures none Orders Category Date Time Status CT abdomen pelvis wo con Stat Exams 07/20/24 15:07 Completed CBC Stat Lab 07/20/24 15:30 Completed CMP [Comprehensive Metabolic Panel] Stat Lab 07/20/24 15:30 Completed Lipase Stat Lab 07/20/24 15:30 Completed Strep A Rapid Stat Lab 07/20/24 15:07 Ordered UA [Urinalysis] Stat Lab 07/20/24 15:07 Ordered Urine Culture Stat Lab 07/20/24 15:07 Ordered Ondansetron Odt [Zofran Odt] Med 07/20/24 15:07 Discontinued 4 mg PO X1 ONE Vital Signs Vital signs: Vital Signs Temperature 98.4 F 07/20/24 14:32 Pulse Rate 81 07/20/24 14:32 Respiratory Rate 18 07/20/24 14:32 Blood Pressure 160/80 H 07/20/24 14:32 Pulse Oximetry (%) 94 L 07/20/24 14:32 Oxygen Delivery Method Room Air 07/20/24 14:32 Pulse ox is 94% on room air which is adequate. Abdominal Pain MDM MDM Narrative MDM Narrative:: Shrely Rooney am scribing for and in the presence of Dr. Flowers. Patients pain resolved while in the ED. Advised she continue her medication regimen. Patient data External records reviewed:: [facility] previous records (I reviewed ED visit on 06/08/2024 ) Clinical information provided by:: patient Social determinants that could affect healthcare access:: none Patient has the following chronic illnesses:: hypertension and diabetes How is presenting disease/condition affected by chronic disease/condition?: exacerbated by Evaluation data The following diagnostics were reviewed and interpreted by me:: lab results and radiology exam(s) Lab and/or radiology exams considered but not ordered:: None Interpretation Summary: Ordering Physician: Tristian Torrez Date of Service: 07/20/24 Procedure(s): CT abdomen pelvis wo con Accession Number(s): [id number] cc: Tristian Torrez; Rory Meeks MD~ Examination: CT abdomen and pelvis without contrast. Coronal 3-D reconstructions. Sagittal 2-D reconstructions. Date and time of exam:July 20, 2024 at 1513 hours Comparison April 29, 2024 INDICATIONS: Lower abdominal pain with dark stools today CTDI: vol (mGy): 9.37 DLP: (mGycm): 540 Technique: Axial images of the abdomen have been obtained, 3 mm slice thickness Intravenous contrast material has not been administered. Low dose protocols were performed. One or more of the following dose reduction techniques were used; automated exposure control, adjustment of the mA and/or KV according to patient size, use of iterative reconstruction technique. Findings: No focal liver or splenic lesions Absent gallbladder No pancreatic or adrenal mass Moderate bilateral renal parenchymal scar formation Abdominal aortic calcification no aneurysmal dilatation No pericecal inflammatory change No bowel obstruction No diverticulitis No rectal wall thickening Absent uterus No adnexal mass Moderate osteopenia Urinary bladder intact IMPRESSION: No acute process in the abdomen or pelvis Dictated By: Rory Meeks MD Signed By: <Electronically signed by Rory Meeks MD in OV> 07/20/24 1533 Medications / Prescriptions Medications or Prescriptions considered but not ordered:: None Medication administrations:: Medication Administration History Discontinued Medications Ondansetron HCl (Ondansetron Odt 4 Mg Tabrap) 4 mg PO X1 ONE; Protocol Stop: 07/20/24 15:08 Last Admin: 07/20/24 16:19 Dose: 4 mg Documented By: See above Consultations Consultation(s) initiated? (list below): No Diagnosis Differential diagnosis abdominal pain: abdominal pain, diverticulitis and gastroenteritis Most likely diagnosis given after review of the tests above:: Abdominal pain resolved Constipation Admission Indicated Admission indicated?: not indicated Admission Request Was there a request for admission?: No Disposition Plan Disposition Plan: Discharge Discharge Attestation Discharge Attestation: The patient and all family members were given an opportunity to ask questions and understood the discharge instructions. Discharge instructions specifically effects, indications for sooner follow up or return to the emergency department, and the expected course of current diagnosis. Patient condition: Stable Discharge Plan Plan Patient Disposition: HOME (Self Care) Prescriptions/Referrals Prescriptions/Med Rec: No Action loratadine 10 mg tablet 10 mg PO QDAY Patient Comments: TAKE 1 TABLET BY MOUTH EVERY DAY insulin degludec [Tresiba FlexTouch U-200] 200 unit/mL (3 mL) insulin pen 45 unit SUBCUT QDAY omeprazole 20 mg Capsule,Delayed Release(Dr/Ec) 20 mg PO QDAY amitriptyline 25 mg tablet 25 mg PO QDAY PRN (Reason: Anxiety) amlodipine 10 mg tablet 10 mg PO QDAY Qty: 30 0RF diltiazem HCl 240 mg Tablet Extended Release 24 Hr 240 mg PO QDAY furosemide [Lasix] 40 mg tablet 40 mg PO QAM Qty: 30 0RF losartan 50 mg tablet 50 mg PO QDAY Qty: 30 1RF losartan 100 mg tablet 100 mg PO DAILY Patient Comments: TAKE 1 TABLET BY MOUTH EVERY DAY carvedilol 6.25 mg tablet 6.25 mg PO Q12H sertraline 25 mg tablet 25 mg PO HS Patient Comments: TAKE 1 TABLET BY MOUTH AT BEDTIME clonidine HCl 0.1 mg tablet 0.1 mg PO BID Qty: 60 0RF oxycodone-acetaminophen [Percocet] 5-325 mg tablet 2 tab PO Q8H MDD 6 PRN (Reason: pain) Qty: 20 0RF atorvastatin 20 mg tablet 20 mg PO HS benzonatate 100 mg capsule 100 mg PO TID Patient Comments: TAKE 1 CAPSULE BY MOUTH TWICE DAILY insulin aspart U-100 [Novolog FlexPen U-100 Insulin] 100 unit/mL (3 mL) insulin pen 6 unit SUBCUT TIDWM Patient Comments: INJECT 10 UNITS UNDER THE SKIN THREE TIMES DAILY WITH MEALS hydroxyzine pamoate 25 mg capsule 25 mg PO HS Qty: 30 0RF pentosan polysulfate sodium 100 mg capsule 100 mg PO TID Qty: 90 3RF clonidine HCl 0.1 mg tablet 0.1 mg PO BID Qty: 60 1RF Referrals: Collin Herrera PA-C [Primary Care Provider] - In 1 week Problem List Clinical Impression: Resolved abdominal pain, Constipation Patient/Caregiver Discharge Instructions Education Materials: ED Constipation (Adult) Additional Instructions: Follow up with your PMD within 2-3 days for reassessment. Return to the ED for any new or worsening symptoms. Print Language: Montenegrin Stand Alone Forms: [facility] Award Info., Patient Portal Info Letter
== END 2024-07-20 18:38 | disposition home or self-care (01) ==
PROVIDERS: Nurse Practitioner Family; Emergency Provider Family Medicine; PCP Physician Assistant
DX: K59.00 Constipation, unspecified (principal)
CPT/HCPCS: 36415; 74176; 80053; 81001; 83690; 85025; 87086; 87651; 99284; Q0162

== ENCOUNTER 2024-08-07 18:48 | Emergency (ER) | payer MEDICARE, MEDICAID, SELFPAY ==
[2024-08-07] VITALS (8 sets, daily range): BP systolic 181–212; BP diastolic 81–110; PULSE 81–92; RESP 16–20; TEMP 36.6–36.8; O2SAT 95–97; BMI 32.8
--- NOTE | 2024-08-07 18:51 | EKG_ITS ---
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
--- NOTE | 2024-08-07 18:51 | PD.EDADULT ---
ED General RME/HPI General Chief complaint: Abdominal Pain Stated complaint: HEAD PAIN Time Seen by Provider: 08/07/24 18:50 Arrival date/time: 08/07/24 18:48 CC: Abdominal pain chest pain headache HPI onset after eating chicken wings approximately noon today. 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 Patient admits to diabetes high blood pressure. Patient is awake alert oriented x 3 Glascow coma 15 hard of hearing. Patient points to her epigastrium states this is where the pain is pointing as it radiates up the sternum. Related Data Home Medications ?Medication ?Instructions ?Recorded ?Confirmed loratadine 10 mg tablet 10 mg PO QDAY 04/22/21 04/27/24 omeprazole 20 mg capsule,delayed 20 mg PO QDAY 06/20/21 04/27/24 release insulin degludec 200 unit/mL (3 45 unit subcut QDAY 08/12/21 04/27/24 mL) subcutaneous pen (Tresiba FlexTouch U-200 insulin) atorvastatin 20 mg tablet 20 mg PO HS 03/11/22 04/27/24 benzonatate 100 mg capsule 100 mg PO TID 03/11/22 04/27/24 insulin aspart U-100 100 unit/mL 6 unit subcut TIDWM 03/11/22 04/27/24 (3 mL) subcutaneous pen (Novolog FlexPen U-100 Insulin aspart) amitriptyline 25 mg tablet 25 mg PO QDAY PRN Anxiety 01/25/23 04/27/24 diltiazem HCl 240 mg 240 mg PO QDAY 05/19/23 04/27/24 tablet,extended release 24 hr carvedilol 6.25 mg tablet 6.25 mg PO Q12H 04/27/24 04/27/24 losartan 100 mg tablet 100 mg PO DAILY for BP 04/27/24 04/27/24 sertraline 25 mg tablet 25 mg PO HS 04/28/24 04/28/24 Previous Rx's ?Medication ?Instructions ?Recorded amlodipine 10 mg tablet 10 mg PO QDAY #30 tabs 01/27/23 furosemide 40 mg tablet (Lasix) 40 mg PO QAM #30 tabs 03/12/24 losartan 50 mg tablet 50 mg PO QDAY #30 tabs 05/25/23 hydroxyzine pamoate 25 mg capsule 25 mg PO HS #30 caps 06/25/23 pentosan polysulfate sodium 100 mg 100 mg PO TID #90 caps 09/21/23 capsule clonidine HCl 0.1 mg tablet 0.1 mg PO BID #60 tabs 04/12/24 Held on 04/27/24. Instructions: Not taking clonidine HCl 0.1 mg tablet 0.1 mg PO BID #60 tabs 04/29/24 oxycodone-acetaminophen 5 mg-325 2 tab PO Q8H PRN pain #20 tabs 06/04/24 mg tablet (Percocet) Allergies Allergy/AdvReac Type Severity Reaction Status Date / Time amoxicillin Allergy Severe Vomiting Verified 06/04/24 15:17 codeine Allergy Severe PALPITATION Verified 06/04/24 15:17 S diazepam Allergy Severe RAPID Verified 06/04/24 15:17 HEARTRATE hydrocodone Allergy Severe Vomiting Verified 06/04/24 15:17 hydromorphone Allergy Severe Agitated Verified 06/04/24 15:17 ibuprofen Allergy Severe BLEEDING Verified 06/04/24 15:17 IN STOMACH PER PT meperidine Allergy Severe RAPID Verified 06/04/24 15:17 HEARTRATE morphine Allergy Severe RAPID Verified 06/04/24 15:17 HEARTRATE propoxyphene Allergy Severe RAPID Verified 06/04/24 15:17 HEARTRATE adhesive tape AdvReac Severe Hives Verified 06/04/24 15:17 levofloxacin AdvReac Severe VOMITS Verified 06/04/24 15:17 Review of Systems Review of Systems Narrative Review of Systems: GEN: No fever, no chills, no weight loss EYES: No discharge, no visual changes, no pain HEENT: No ear pain, no congestion, no sore throat PULM: No shortness of breath, no cough, no congestion CV: + chest pain, no dyspnea on exertion, no palpitations GI: No nausea, no vomiting, no diarrhea, + pain, no constipation : No frequency, no urgency, no dysuria MUSC/SKEL: No joint pain, no back pain SKIN: No rash PSYCH: No hallucinations, no depression HEME/LYMPH: No easy bleeding or bruising tendencies NEURO: No weakness, no headache Past Medical History Past Medical History NEUROLOGIC: Positive Traumatic Brain Injury; Negative Neurological Disorders, Cerebrovascular Accident, Transient Ischemic Attacks (TIA), Dementia, Alzheimer's Disease, Parkinson's Disease, Brain Tumor, Meningitis, Seizures, Epilepsy, Multiple Sclerosis, Cerebral Palsy, Amyotrophic Lateral Sclerosis (ALS/Lilliam Gehrig's), Guillain-Lafferty Syndrome, Spina Bifida, Paralysis, Peripheral Neuropathy, Junior's Palsy, Subdural Hematoma, Migraine, Head Trauma or Spinal Cord Injury CARDIAC: Positive Cardiac Disorders, Myocardial Infarction, Hypercholesterolemia, Congestive Heart Failure, Edema, Deep Vein Thrombosis and Hypertension; Negative Cardiac Arrhythmia, Atrial Fibrillation, Angina, Heart Murmur, Coronary Artery Disease, Atherosclerotic Heart Disease, Peripheral Vascular Disease, Aneurysm, Congenital Heart Disease, Valvular Heart Disease, Rheumatic Fever, Cardiomyopathy, Pericarditis, Cellulitis, Hypotension or Varicose Veins RESPIRATORY: Positive Chronic Obstructive Pulmonary Disease (COPD), Asthma, Bronchitis and Pneumonia; Negative Emphysema, Pulmonary Fibrosis, Cystic Fibrosis, Tuberculosis, Pulmonary Embolism, Pulmonary Edema or Sleep Apnea GASTROINTESTINAL: Positive Gastrointestinal Disorders, Gastroesophageal Reflux Disease and Obesity; Negative Hepatitis, Cirrhosis, Pancreatitis, Celiac Disease, Gall Bladder Disease, Gastrointestinal Bleed, Esophageal Varices, Romero's Esophagus, Colitis, Ulcerative Colitis, Diverticulitis, Diverticulosis, Ulcer, Colorectal Cancer, Irritable Bowel, Crohn's Disease, Obstructive Bowel, Hiatal Hernia or Hemorrhoids GENITOURINARY: Positive Genitourinary Disorders and Renal Disease; Negative Kidney Stones, Polycystic Kidney Disease, Neurogenic Bladder, Inguinal Hernia, Dialysis or Benign Prostatic Hyperplasia REPRODUCTIVE: Positive Previous Pregnancies; Negative Breast Cancer, Endometriosis, Genital Herpes, Gonorrhea, Pelvic Inflammatory Disease, Syphilis or Uterine Prolapse MUSCULOSKELETAL: Positive Musculoskeletal Disorders and Arthritis; Negative Muscular Dystrophy, Myasthenia Gravis, Marfan's Syndrome, Bone Cancer, Rheumatoid Arthritis, Osteoporosis, Degenerative Disk Disease, Gout, Scoliosis, Carpal Tunnel Syndrome, Fibromyalgia, Fractures, Degenerative Joint Disease, Osteomyelitis or Poliovirus ENT: Negative Cataracts, Glaucoma, Blind, Retinal Detachment, Macular Degeneration, Ear Infection, Deafness, Head Trauma or Eye Prosthesis ENDOCRINE: Positive Endocrine Disorders and Diabetes Mellitus Type 2; Negative Diabetes Mellitus Type 1, Hypoglycemia, Cleghorn's Syndrome, Livingston's Disease, Hyperthyroidism, Hypothyroidism, Parathyroid Disease, Pituitary Disease, Systemic Lupus Erythematosus, Syndrome of Inappropriate Antidiuretic Hormone (SIADH), Adrenal Disease or Graves' Disease HEMATOLOGIC: Negative Blood Disorders, Sickle Cell Disease or Clotting Problems PSYCHO/SOCIAL: Positive Anxiety; Negative Psychiatric Problems, Schizophrenia, Recreational Drug Use, Bipolar Disorder, Depression, Behavior Problems, Self-Mutilation, Attention Deficit Disorder, Attention Deficit Hyperactivity Disorder, Depression, Post Traumatic Stress Disorder or Eating Disorder OTHER HISTORY: Positive Hospitalization, Blood Transfusions (1 unit PRBC today 09/18), Chicken Pox, Measles and Mumps; Negative Autoimmune Disease, Down Syndrome, Autism, Developmental Delay, Shingles, Falls, Blood Transfusion Reaction, Anesthesia Reactions, Organ Transplant, Chemotherapy, Radiation Therapy, Hyperbaric Therapy, MRSA, VRSA, Vancomycin-Resistant Enterococci, Human Immunodeficiency Virus (HIV), Rubella (Citizen [place] Measles), Pertussis, Clostridium Difficile, Cancer, Breast Cancer, Cervical Cancer, Colorectal Cancer, Lung Cancer or Ovarian Cancer Family History FAMILY HISTORY: Positive Family Respiratory Disorders, Family Cardiac Disorders and Family Cancer; Negative Family Psychiatric Problems, Family Gastrointestinal Problems, Family Surgery or Family Anesthesia Reaction Surgical History SURGICAL: Positive Angiogram, Abdominal Surgery, Joint Replacement and Hysterectomy; Negative Cardiac Surgery, Open Heart Surgery, Coronary Artery Bypass Graft, Valve Replacement, Vascular Surgery, Coronary Stent, Cardiac Catheterization, Pacemaker, Auto Implanted Cardiovert Defib, Carotid Endarterectomy, Endocrine Surgery, Thyroidectomy, Ear Surgery, Tympanostomy Tube, Eye Surgery, Nose Surgery, Oral Surgery, Tonsillectomy, Adenoidectomy, Cochlear Implant, Corneal Transplant, Throat Surgery, Tracheostomy, Gastric Bypass Surgery, Gastrostomy, Bowel Surgery, Nephrectomy, Amputation, Arthroscopy, Neurologic Surgery, Brain Shunt, Mastectomy, Lumpectomy, Tubal Ligation, Section or Organ Transplant Social History SMOKING STATUS: Never smoker SECOND HAND EXPOSURE: No SUBSTANCE USE: does not use ED Exam Narrative Physical exam: [General: Obese not in any acute distress Head normocephalic HEENT: Eyes pupils are PERRLA EOMs are intact mouth pink moist membranes uvula is midline swallow symmetrical note the patient has no lower teeth. Nose no rhinorrhea, epistaxis. Within acceptable limits Neck is supple nontender, no JVD no edema Chest equal chest rise nontender to palpation Respiratory: Clear to auscultation no wheezes crackles or rubs CV: Rate rhythm is regular no murmurs rubs or clicks Abdomen soft mild tenderness with palpation of the epigastrium: No reflexive guarding no rebound tenderness. No left upper or right upper quadrant tenderness with palpation. no masses positive bowel sounds all 4 quadrants Back: No CVA tenderness no spinous process tenderness from cervical spine thoracic and lumbar spine Skin: Intact no petechiae rash induration ulceration or crepitus Extremities: Moving all extremity against resistance cap refill less than 2 seconds neurosensory intact. 1+ pitting edema to the ankles. Neuro: Awake alert oriented x3 Glascow coma 15 no focal deficits] Course Course Course Narrative: Reexamination of this patient at 2044, the patient stated all of her epigastric symptoms have resolved. The patient is awake alert and has no specific complaints. However we do notice that her blood pressure is 230/110 at this time we will address her hypertension. After multiple medications, 2199, patient's blood pressure 180/80 uncomfortable discharging this patient now as her chief complaint symptoms have completely resolved. Quality Measures none Orders Category Date Time Status EKG (ED ONLY) *Do not use* NOW Care 08/07/24 18:51 Completed EKG (ED Only) Stat Exams 08/07/24 18:51 Draft B-Type Natriuretic Peptide Stat Lab 08/07/24 19:12 Completed CBC Stat Lab 08/07/24 19:12 Completed Comprehensive Metabolic Panel Stat Lab 08/07/24 19:12 Completed Drug Screen,Urine Stat Lab 08/07/24 19:52 Completed Lipase Stat Lab 08/07/24 19:12 Completed Magnesium Stat Lab 08/07/24 19:12 Completed Partial Thromboplastin Time Stat Lab 08/07/24 19:12 Completed Prothrombin Time with INR Stat Lab 08/07/24 19:12 Completed Urinalysis Stat Lab 08/07/24 19:52 Completed Losartan [Cozaar] Med 08/07/24 20:57 Discontinued 25 mg PO X1 ONE amLODIPine BESYLATE [Norvasc] Med 08/07/24 20:12 Discontinued 10 mg PO X1 ONE cloNIDine HCL [Catapres] Med 08/07/24 19:05 Discontinued 0.1 mg PO X1 ONE hydrALAZINE INJ [Apresoline Inj] Med 08/07/24 20:12 Discontinued 10 mg IVP X1 ONE mg Hyd/Al Hyd/Arya Susp [Maalox Susp] Med 08/07/24 18:51 Discontinued 30 ml PO X1 ONE Vital Signs Vital signs: Vital Signs Temperature 98.2 F 08/07/24 18:57 Pulse Rate 88 08/07/24 18:57 Respiratory Rate 18 08/07/24 18:57 Blood Pressure 204/96 H 08/07/24 18:57 Pulse Oximetry (%) 95 08/07/24 18:57 Oxygen Delivery Method Room Air 08/07/24 18:57 Discharge Plan Plan Patient Disposition: HOME (Self Care) Patient condition on transfer: Stable Prescriptions/Referrals Prescriptions/Med Rec: No Action loratadine 10 mg tablet 10 mg PO QDAY Patient Comments: TAKE 1 TABLET BY MOUTH EVERY DAY insulin degludec [Tresiba FlexTouch U-200] 200 unit/mL (3 mL) insulin pen 45 unit SUBCUT QDAY omeprazole 20 mg Capsule,Delayed Release(Dr/Ec) 20 mg PO QDAY amitriptyline 25 mg tablet 25 mg PO QDAY PRN (Reason: Anxiety) amlodipine 10 mg tablet 10 mg PO QDAY Qty: 30 0RF diltiazem HCl 240 mg Tablet Extended Release 24 Hr 240 mg PO QDAY furosemide [Lasix] 40 mg tablet 40 mg PO QAM Qty: 30 0RF losartan 50 mg tablet 50 mg PO QDAY Qty: 30 1RF losartan 100 mg tablet 100 mg PO DAILY Patient Comments: TAKE 1 TABLET BY MOUTH EVERY DAY carvedilol 6.25 mg tablet 6.25 mg PO Q12H sertraline 25 mg tablet 25 mg PO HS Patient Comments: TAKE 1 TABLET BY MOUTH AT BEDTIME clonidine HCl 0.1 mg tablet 0.1 mg PO BID Qty: 60 0RF oxycodone-acetaminophen [Percocet] 5-325 mg tablet 2 tab PO Q8H MDD 6 PRN (Reason: pain) Qty: 20 0RF atorvastatin 20 mg tablet 20 mg PO HS benzonatate 100 mg capsule 100 mg PO TID Patient Comments: TAKE 1 CAPSULE BY MOUTH TWICE DAILY insulin aspart U-100 [Novolog FlexPen U-100 Insulin] 100 unit/mL (3 mL) insulin pen 6 unit SUBCUT TIDWM Patient Comments: INJECT 10 UNITS UNDER THE SKIN THREE TIMES DAILY WITH MEALS hydroxyzine pamoate 25 mg capsule 25 mg PO HS Qty: 30 0RF pentosan polysulfate sodium 100 mg capsule 100 mg PO TID Qty: 90 3RF clonidine HCl 0.1 mg tablet 0.1 mg PO BID Qty: 60 1RF Referrals: Boubacar Lockhart MD [Primary Care Provider] - In 1 week Problem List Clinical Impression: Epigastric pain, Hypertension Patient/Caregiver Discharge Instructions Education Materials: ED Hypertension, Established Additional Instructions: Avoid greasy spicy and fatty foods. Follow-up with your primary care doctor. Please talk to your primary care doctor about adjusting your hypertension medications. Print Language: [place]an Stand Alone Forms: MeetMe Info., Work/School Release, Patient Portal Info Letter CARLEEN/ESTRELLITA Supervising Physician CARLEEN/ESTRELLITA Supervising Physician: Kyler ZAMORA Clinical Information Provided by patient and EMS Medical Records Reviewed [facility] and EMS EKG EKG Interpretation narrative: EKG performed at 1906 shows ventricular rate 87 DE interval 156 QRS of 100 QTc [address] segment changes. Lab Interpretation Lab(s) interpretation(s): CBC shows a mild leukocytosis of 12.3 H&H of 9.8 and 28.6 respectively. No thrombocytopenia Coags within acceptable limits CMP shows glucose of 286 no other electrolyte imbalances BUN of 48 and creatinine of 2.8 of note when compared to previous laboratory results this is essentially unremarkable. Alk phos of 213 no other transaminitis or T. bili elevation BNP of 105 Lipase of 43 Urine shows 3+ protein 4+ glucose 1+ blood Medication Administration(s) Medication Administration History Discontinued Medications Al Hydrox/Mg Hydrox/Simethicone (Mg Hyd/Al Hyd/Arya (Maalox Reg) Susp 30 Ml Udc) 30 ml PO X1 ONE Stop: 08/07/24 18:52 Last Admin: 08/07/24 19:43 Dose: 30 ml Documented By: ER Amlodipine Besylate (Amlodipine Besylate 5 Mg Tablet) 10 mg PO X1 ONE Stop: 08/07/24 20:13 Last Admin: 08/07/24 20:58 Dose: Not Given Documented By: CCT Non-Admin Reason: Pt refused, Kyler christine Clonidine (Clonidine Hcl 0.1 Mg Tablet) 0.1 mg PO X1 ONE Stop: 08/07/24 19:06 Last Admin: 08/07/24 19:43 Dose: 0.1 mg Documented By: ER Hydralazine HCl (Hydralazine Inj 20 Mg/Ml Vial) 10 mg IVP X1 ONE Stop: 08/07/24 20:13 Last Admin: 08/07/24 20:46 Dose: 10 mg Documented By: CCT Losartan Potassium (Losartan Potassium 25 Mg Tablet) 25 mg PO X1 ONE Stop: 08/07/24 20:58 Last Admin: 08/07/24 21:09 Dose: 25 mg Documented By: CCT
[2024-08-07 19:22] LABS: Basophils # (Auto) 0.1 Thou/mm3 (0.0-0.2); Basophils % (Auto) 1 % (0-2.5); Eosinophils # (Auto) 0.2 Thou/mm3 (0.0-0.5); Eosinophils % (Auto) 2 % (0-10); Hematocrit 28.6 % (36.0-46.0); Hemoglobin 9.8 g/dL (12.0-16.0); Immature Granulocytes % (Auto) 2 % (0-0); Immature Granulocytes Auto 0.18 Thou/mm3 (0.00-0.00); Lymphocytes # (Auto) 3.6 Thou/mm3 (1.0-4.8); Lymphocytes % (Auto) 30 % (10-50); Mean Corpuscular HGB Conc 34.3 g/dl (31.0-37.0); Mean Corpuscular Hemoglobin 30.7 pg (25.0-35.0); Mean Corpuscular Volume 90 fL (80-100); Monocytes # (Auto) 0.7 Thou/mm3 (0.0-0.8); Monocytes % (Auto) 5 % (0-12); Neutrophils # (Auto) 7.6 Thou/mm3 (1.8-7.7); Neutrophils % (Auto) 62 % (37-80); Nucleated Red Blood Cell % 0 /100 WBC (0); Platelet Count 260 Thou/mm3 (140-440); RDW Standard Deviation 42.6 fL (36.4-46.3); Red Blood Count 3.19 Miln/mm3 (4.00-5.20); White Blood Count 12.3 Thou/mm3 (3.6-11.0)
[2024-08-07 19:31] LABS: Prothrombin Time 10.9 Seconds (9.0-12.2)
[2024-08-07 19:33] LABS: B-Type Natriuretic Peptide 105 pg/mL (0-100)
[2024-08-07 19:35] LABS: Alanine Aminotransferase 15 U/L (10-49); Albumin, Serum 3.9 gm/dL (3.4-4.8); Albumin/Globulin Ratio 1.3 (1.2-2.2); Alkaline Phosphatase 213 U/L (46-116); Anion Gap 10 (7-16); Aspartate Amino Transferase 11 U/L (0-34); BUN/Creatinine Ratio 17 Ratio (12-20); Bilirubin,Total 0.3 mg/dL (0.3-1.2); Blood Urea Nitrogen 48 mg/dL (9-23); Calcium 10.2 mg/dL (8.3-10.6); Calcium (Corrected) 10.3 mg/dL (8.5-10.1); Carbon Dioxide 27.6 mMol/L (20.0-31.0); Chloride 98 mMol/L (98-107); Creatinine (Component) 2.8 mg/dL (0.6-1.3); Glucose 286 mg/dL (74-106); Lipase 43 U/L (12-53); Magnesium 2.4 mg/dL (1.6-2.6); Osmolality,Calculated 294 (275-295); Potassium 4.2 mMol/L (3.4-5.1); Sodium 136 mMol/L (136-145); Total Protein 6.9 gm/dL (5.7-8.2); eGFR 16 See Note
--- NOTE | 2024-08-07 19:40 | PC.NURSE ---
Patient BIBA due to abdominal pain and [place]LE[place] since 1400. Patient c/o of dysuria and diarrhea as well. Patient is incontinent. POC updated.
[2024-08-07] MEDS: cloNIDine HCL 0.1 MG TABLET PO (19:43)
[2024-08-07] MEDS: MG HYD/AL HYD/SIME (Maalox Reg) SUSP 30 ML UDC PO (19:43)
[2024-08-07 19:56] LABS: Collection Type, Urine Clean Catch
[2024-08-07 20:05] LABS: Bacteria,Urine Rare; Bilirubin,Urine Negative (Negative); Blood,Urine 1+ (Negative); Clarity,Urine Clear (Clear/Hazy); Color,Urine Lt-Yellow (Lt Yel-Yel); Glucose, Urine 4+ (Negative); Ketones,Urine Negative (Negative); Leukocyte Esterase,Urine Negative (Negative); Nitrite,Urine Negative (Negative); Protein,Urine 3+ (Neg - Trace); RBC,Urine 8 /hpf (0-3); Specific Gravity,Urine 1.012 (1.001-1.035); Squamous Epithelial Cell,Urine 1 /hpf (0-5); Urobilinogen,Urine Negative mg/dL (0.0-1.0); WBC,Urine 2 /hpf (0-5)
[2024-08-07] MEDS: hydrALAZINE INJ 20 MG/ML VIAL 10 MG IVP (20:46)
[2024-08-07 20:48] LABS: Amphetamine/Methamp Scrn,U Negative (Negative); Barbiturate Screen,Urine Negative (Negative); Benzodiazepines Screen,Urine Negative (Negative); Benzoylecgonine Screen, Ur Negative (Negative); Fentanyl Screen,Urine Negative (Negative); Opiate Screen,Urine Negative (Negative); THC Screen,Urine Negative (Negative)
[2024-08-07] MEDS: LOSARTAN POTASSIUM 25 MG TABLET PO (21:09)
--- NOTE | 2024-08-07 22:00 | PC.NURSE ---
Kyler DURANT aware of BP 188/81, per Kyler DURANT ok to discharge pt home.
== END 2024-08-07 22:25 | disposition home or self-care (01) ==
PROVIDERS: Registered Nurse General Practice; Emergency Provider Emergency Medicine; PCP Pediatrics
DX: R10.13 Epigastric pain (principal); I10 Essential (primary) hypertension; R94.31 Abnormal electrocardiogram [ECG] [EKG]
CPT/HCPCS: 36415; 80053; 80307; 81001; 83690; 83735; 83880; 85025; 85610; 85730; 93005; 96374; 99284; J0360; A9270

== ENCOUNTER 2024-08-28 12:43 | Emergency (ER) | payer MEDICARE, MEDICAID, SELFPAY ==
[2024-08-28 12:49] VITALS: BP 182/84; PULSE 88; RESP 18; TEMP 37.2; O2SAT 98
[2024-08-28 12:52] VITALS: PULSE 90; RESP 20; O2SAT 95; BMI 32.3
[2024-08-28] MEDS: ONDANSETRON ODT 4 MG TABRAP PO (13:05)
[2024-08-28 13:37] LABS: Basophils # (Auto) 0.1 Thou/mm3 (0.0-0.2); Basophils % (Auto) 1 % (0-2.5); Eosinophils # (Auto) 0.2 Thou/mm3 (0.0-0.5); Eosinophils % (Auto) 2 % (0-10); Hematocrit 28.1 % (36.0-46.0); Hemoglobin 9.5 g/dL (12.0-16.0); Immature Granulocytes % (Auto) 1 % (0-0); Immature Granulocytes Auto 0.11 Thou/mm3 (0.00-0.00); Lymphocytes # (Auto) 2.7 Thou/mm3 (1.0-4.8); Lymphocytes % (Auto) 25 % (10-50); Mean Corpuscular HGB Conc 33.8 g/dl (31.0-37.0); Mean Corpuscular Hemoglobin 30.4 pg (25.0-35.0); Mean Corpuscular Volume 90 fL (80-100); Monocytes # (Auto) 0.5 Thou/mm3 (0.0-0.8); Monocytes % (Auto) 4 % (0-12); Neutrophils # (Auto) 7.3 Thou/mm3 (1.8-7.7); Neutrophils % (Auto) 68 % (37-80); Nucleated Red Blood Cell % 0 /100 WBC (0); Platelet Count 235 Thou/mm3 (140-440); RDW Standard Deviation 43.1 fL (36.4-46.3); Red Blood Count 3.13 Miln/mm3 (4.00-5.20); White Blood Count 10.8 Thou/mm3 (3.6-11.0)
[2024-08-28 13:53] LABS: Collection Type, Urine Clean Catch
[2024-08-28 14:00] LABS: Alanine Aminotransferase 12 U/L (10-49); Albumin, Serum 3.9 gm/dL (3.4-4.8); Albumin/Globulin Ratio 1.6 (1.2-2.2); Alkaline Phosphatase 136 U/L (46-116); Anion Gap 7 (7-16); Aspartate Amino Transferase 15 U/L (0-34); BUN/Creatinine Ratio 16 Ratio (12-20); Bilirubin,Total 0.3 mg/dL (0.3-1.2); Blood Urea Nitrogen 49 mg/dL (9-23); Calcium 9.3 mg/dL (8.3-10.6); Calcium (Corrected) 9.4 mg/dL (8.5-10.1); Carbon Dioxide 25.9 mMol/L (20.0-31.0); Chloride 105 mMol/L (98-107); Estimated Creatinine Clearance 13.9 mL/min (>60); Globulin 2.4 gm/dL (2.3-3.5); Glucose 291 mg/dL (74-106); Lipase 35 U/L (12-53); Osmolality,Calculated 299 (275-295); Potassium 4.5 mMol/L (3.4-5.1); Sodium 138 mMol/L (136-145); Total Protein 6.3 gm/dL (5.7-8.2); eGFR 15 See Note
[2024-08-28 14:10] VITALS: BP 206/83; PULSE 74; RESP 18; TEMP 36.9; O2SAT 99
[2024-08-28 14:10] LABS: Bilirubin,Urine Negative (Negative); Blood,Urine Negative (Negative); Clarity,Urine Clear (Clear/Hazy); Glucose, Urine 3+ (Negative); Ketones,Urine Negative (Negative); Leukocyte Esterase,Urine Negative (Negative); Nitrite,Urine Negative (Negative); PH,Urine 6.5 (5.0-7.0); Protein,Urine 3+ (Neg - Trace); RBC,Urine < 1 /hpf (0-3); Specific Gravity,Urine 1.013 (1.001-1.035); Squamous Epithelial Cell,Urine 2 /hpf (0-5); Urobilinogen,Urine Negative mg/dL (0.0-1.0); WBC,Urine 5 /hpf (0-5)
[2024-08-28 14:13] LABS: Color,Urine Lt-Yellow (Lt Yel-Yel)
[2024-08-28] MEDS: MG HYD/AL HYD/SIME (Maalox Reg) SUSP 30 ML UDC PO (14:38)
[2024-08-28] MEDS: LIDOCAINE VISCOUS 2% 15 ML UDC PO (14:38)
--- NOTE | 2024-08-28 14:51 | PD.EDABDPN ---
ED Abdominal Pain RME/HPI General Chief Complaint: Abdominal Pain Stated complaint: ABDOMINAL PAIN Time seen by provider: 08/28/24 12:51 Arrival date/time: 08/28/24 12:43 Source: patient and EMS Limitations: no limitations RME / HPI RME / HPI narrative: Patient is a 83-year-old female is here today with epigastric pain and anxiety. She had nausea but no vomiting. No changes in stool. She has chronic renal disease. She denies any fevers or chills. Has no urinary complaints. She has no other acute complaints. Related Data Home Medications ?Medication ?Instructions ?Recorded ?Confirmed loratadine 10 mg tablet 10 mg PO QDAY 04/22/21 04/27/24 omeprazole 20 mg capsule,delayed 20 mg PO QDAY 06/20/21 04/27/24 release insulin degludec 200 unit/mL (3 45 unit subcut QDAY 08/12/21 04/27/24 mL) subcutaneous pen (Tresiba FlexTouch U-200 insulin) atorvastatin 20 mg tablet 20 mg PO HS 03/11/22 04/27/24 benzonatate 100 mg capsule 100 mg PO TID 03/11/22 04/27/24 insulin aspart U-100 100 unit/mL 6 unit subcut TIDWM 03/11/22 04/27/24 (3 mL) subcutaneous pen (Novolog FlexPen U-100 Insulin aspart) amitriptyline 25 mg tablet 25 mg PO QDAY PRN Anxiety 01/25/23 04/27/24 diltiazem HCl 240 mg 240 mg PO QDAY 05/19/23 04/27/24 tablet,extended release 24 hr carvedilol 6.25 mg tablet 6.25 mg PO Q12H 04/27/24 04/27/24 losartan 100 mg tablet 100 mg PO DAILY for BP 04/27/24 04/27/24 sertraline 25 mg tablet 25 mg PO HS 04/28/24 04/28/24 Previous Rx's ?Medication ?Instructions ?Recorded amlodipine 10 mg tablet 10 mg PO QDAY #30 tabs 01/27/23 furosemide 40 mg tablet (Lasix) 40 mg PO QAM #30 tabs 05/25/23 losartan 50 mg tablet 50 mg PO QDAY #30 tabs 05/25/23 hydroxyzine pamoate 25 mg capsule 25 mg PO HS #30 caps 06/25/23 pentosan polysulfate sodium 100 mg 100 mg PO TID #90 caps 09/21/23 capsule clonidine HCl 0.1 mg tablet 0.1 mg PO BID #60 tabs 04/12/24 Held on 04/27/24. Instructions: Not taking clonidine HCl 0.1 mg tablet 0.1 mg PO BID #60 tabs 04/29/24 oxycodone-acetaminophen 5 mg-325 2 tab PO Q8H PRN pain #20 tabs 06/04/24 mg tablet (Percocet) Allergies Allergy/AdvReac Type Severity Reaction Status Date / Time amoxicillin Allergy Severe Vomiting Verified 06/04/24 15:17 codeine Allergy Severe PALPITATION Verified 06/04/24 15:17 S diazepam Allergy Severe RAPID Verified 06/04/24 15:17 HEARTRATE hydrocodone Allergy Severe Vomiting Verified 06/04/24 15:17 hydromorphone Allergy Severe Agitated Verified 06/04/24 15:17 ibuprofen Allergy Severe BLEEDING Verified 06/04/24 15:17 IN STOMACH PER PT meperidine Allergy Severe RAPID Verified 06/04/24 15:17 HEARTRATE morphine Allergy Severe RAPID Verified 06/04/24 15:17 HEARTRATE propoxyphene Allergy Severe RAPID Verified 06/04/24 15:17 HEARTRATE adhesive tape AdvReac Severe Hives Verified 06/04/24 15:17 levofloxacin AdvReac Severe VOMITS Verified 06/04/24 15:17 Review of Systems Review of Systems Systems Reviewed: All systems reviewed, normal except as documented ED Exam General Limitations: Present no limitations General appearance: Present alert and in no apparent distress Head Head exam: Present atraumatic Eye Eye exam: Present normal appearance, PERRL and EOMI ENT ENT exam: Present normal exam, normal oropharynx and mucous membranes moist Neck Neck exam: Present normal inspection, full ROM and trachea midline Chest Chest inspection: Present normal inspection and symmetric chest wall rise Respiratory Respiratory exam: Present normal lung sounds bilaterally Cardiovascular Cardiovascular exam: Present regular rate, normal rhythm and normal heart sounds Abdominal Exam Abdominal exam: Present soft and normal bowel sounds Extremities Exam Extremities exam: Present normal inspection and full ROM Back Exam Back exam: Present normal inspection and full ROM Neurological Exam Neurological exam: Present alert, oriented X3 and CN II-XII intact Psychiatric Psychiatric exam: Present depressed and anxious Skin Skin exam: Present warm, dry, intact and normal color Course Quality Measures none Orders Category Date Time Status CBC Stat Lab 08/28/24 13:19 Completed CMP [Comprehensive Metabolic Panel] Stat Lab 08/28/24 13:19 Completed Lipase Stat Lab 08/28/24 13:19 Completed UA [Urinalysis] Stat Lab 08/28/24 13:44 Completed Lidocaine 2% Viscous [Xylocaine 2% Viscous] Med 08/28/24 13:52 Discontinued 15 ml PO X1 ONE Ondansetron Odt [Zofran Odt] Med 08/28/24 12:52 Discontinued 4 mg PO X1 ONE mg Hyd/Al Hyd/Arya Susp [Maalox Susp] Med 08/28/24 13:52 Discontinued 30 ml PO X1 ONE Vital Signs Vital signs: Vital Signs Temperature 98.9 F 08/28/24 12:49 Pulse Rate 88 08/28/24 12:49 Respiratory Rate 18 08/28/24 12:49 Blood Pressure 182/84 H 08/28/24 12:49 Pulse Oximetry (%) 98 08/28/24 12:49 Oxygen Delivery Method Room Air 08/28/24 12:49 Abdominal Pain MDM MDM Narrative MDM Narrative:: Anxious appearing 83-year-old female is here today of epigastric pain. She comes to the ER for frequently for this. Her work appears essentially unremarkable. She has elevated creatinine appears to be her baseline. She was given a GI cocktail. Afterward she reports symptomatic treatment but is worried that her mouth feels numb. Reassurance was provided. I do agree the patient stable for outpatient follow-up. She will follow-up with her primary doctor. Return as needed needed for any worsening or emergent changes. Patient data External records reviewed:: Other (specify) Clinical information provided by:: patient and EMS Social determinants that could affect healthcare access:: mental health Patient has the following chronic illnesses:: End-stage renal disease How is presenting disease/condition affected by chronic disease/condition?: exacerbated by Evaluation data The following diagnostics were reviewed and interpreted by me:: lab results Lab and/or radiology exams considered but not ordered:: n/a Interpretation Summary: Elevated creatinine at his baseline. Workup is otherwise unremarkable. Medications / Prescriptions Medications or Prescriptions considered but not ordered:: n/a Medication administrations:: Medication Administration History Discontinued Medications Al Hydrox/Mg Hydrox/Simethicone (Mg Hyd/Al Hyd/Arya (Maalox Reg) Susp 30 Ml Udc) 30 ml PO X1 ONE Stop: 08/28/24 13:53 Last Admin: 08/28/24 14:38 Dose: 30 ml Documented By: DB Lidocaine HCl (Lidocaine Viscous 2% 15 Ml Udc) 15 ml PO X1 ONE Stop: 08/28/24 13:53 Last Admin: 08/28/24 14:38 Dose: 15 ml Documented By: MARKIE Ondansetron HCl (Ondansetron Odt 4 Mg Tabrap) 4 mg PO X1 ONE; Protocol Stop: 08/28/24 12:53 Last Admin: 08/28/24 13:05 Dose: 4 mg Documented By: MARKIE See above Consultations Consultation(s) initiated? (list below): No Diagnosis Differential diagnosis abdominal pain: abdominal pain, calculus of kidney, diverticulitis and endometriosis Most likely diagnosis given after review of the tests above:: Abdominal pain, end-stage renal disease Admission Indicated Admission indicated?: not indicated Admission Request Was there a request for admission?: No Disposition Plan Disposition Plan: Discharge Discharge Attestation Discharge Attestation: The patient and all family members were given an opportunity to ask questions and understood the discharge instructions. Discharge instructions specifically effects, indications for sooner follow up or return to the emergency department, and the expected course of current diagnosis. Patient condition: Stable Discharge Plan Plan Patient Disposition: HOME (Self Care) Patient condition on transfer: Stable Prescriptions/Referrals Prescriptions/Med Rec: No Action loratadine 10 mg tablet 10 mg PO QDAY Patient Comments: TAKE 1 TABLET BY MOUTH EVERY DAY insulin degludec [Tresiba FlexTouch U-200] 200 unit/mL (3 mL) insulin pen 45 unit SUBCUT QDAY omeprazole 20 mg Capsule,Delayed Release(Dr/Ec) 20 mg PO QDAY amitriptyline 25 mg tablet 25 mg PO QDAY PRN (Reason: Anxiety) amlodipine 10 mg tablet 10 mg PO QDAY Qty: 30 0RF diltiazem HCl 240 mg Tablet Extended Release 24 Hr 240 mg PO QDAY furosemide [Lasix] 40 mg tablet 40 mg PO QAM Qty: 30 0RF losartan 50 mg tablet 50 mg PO QDAY Qty: 30 1RF losartan 100 mg tablet 100 mg PO DAILY Patient Comments: TAKE 1 TABLET BY MOUTH EVERY DAY carvedilol 6.25 mg tablet 6.25 mg PO Q12H sertraline 25 mg tablet 25 mg PO HS Patient Comments: TAKE 1 TABLET BY MOUTH AT BEDTIME clonidine HCl 0.1 mg tablet 0.1 mg PO BID Qty: 60 0RF oxycodone-acetaminophen [Percocet] 5-325 mg tablet 2 tab PO Q8H MDD 6 PRN (Reason: pain) Qty: 20 0RF atorvastatin 20 mg tablet 20 mg PO HS benzonatate 100 mg capsule 100 mg PO TID Patient Comments: TAKE 1 CAPSULE BY MOUTH TWICE DAILY insulin aspart U-100 [Novolog FlexPen U-100 Insulin] 100 unit/mL (3 mL) insulin pen 6 unit SUBCUT TIDWM Patient Comments: INJECT 10 UNITS UNDER THE SKIN THREE TIMES DAILY WITH MEALS hydroxyzine pamoate 25 mg capsule 25 mg PO HS Qty: 30 0RF pentosan polysulfate sodium 100 mg capsule 100 mg PO TID Qty: 90 3RF clonidine HCl 0.1 mg tablet 0.1 mg PO BID Qty: 60 1RF Referrals: Collin Herrera PA-C [Primary Care Provider] - In 1 week Problem List Clinical Impression: Abdominal pain, CKD (chronic kidney disease) Patient/Caregiver Discharge Instructions Education Materials: Abdominal Pain, CKD Dc Additional Instructions: Continue current therapies. Follow-up with your primary doctor. Return here for any worsening or emergent changes. Print Language: Swedish Stand Alone Forms: Grace Award Info., Patient Portal Info Letter
== END 2024-08-28 15:40 | disposition home or self-care (01) ==
PROVIDERS: Physician Assistant Medical; Emergency Provider Family Medicine; PCP Physician Assistant
DX: R10.13 Epigastric pain (principal); N18.9 Chronic kidney disease, unspecified; R79.89 Other specified abnormal findings of blood chemistry
CPT/HCPCS: 36415; 80053; 81001; 83690; 85025; 99283; J3490; Q0162; A9270

== ENCOUNTER 2024-08-29 16:03 | Emergency (ER) | payer MEDICARE, MEDICAID, SELFPAY ==
[2024-08-29 16:08] VITALS: BMI 32.3
[2024-08-29 16:09] VITALS: PULSE 80; RESP 16; O2SAT 97
--- NOTE | 2024-08-29 16:10 | XR_ITS ---
Examination: Abdomen sonogram, Limited Date and time of exam: August 29, 2024 1640 hours INDICATIONS: Onset epigastric pain today Technique: Real-time morales scale transabdominal sonographic images of the upper abdomen obtained. Findings: Absent gallbladder. Normal common bile duct 0.3 cm Pancreatic and 1.6 cm Liver 13.6 cm fatty infiltration lobular contour Normal hepatopedal portal venous O Patent IVC IMPRESSION: Normal common bile duct Fatty liver
[2024-08-29 16:26] VITALS: BP 179/85; PULSE 83; RESP 17; TEMP 36.7; O2SAT 96
[2024-08-29 16:46] LABS: Basophils # (Auto) 0.1 Thou/mm3 (0.0-0.2); Basophils % (Auto) 1 % (0-2.5); Eosinophils # (Auto) 0.2 Thou/mm3 (0.0-0.5); Eosinophils % (Auto) 1 % (0-10); Hematocrit 29.2 % (36.0-46.0); Hemoglobin 9.9 g/dL (12.0-16.0); Immature Granulocytes % (Auto) 1 % (0-0); Immature Granulocytes Auto 0.11 Thou/mm3 (0.00-0.00); Lymphocytes # (Auto) 2.8 Thou/mm3 (1.0-4.8); Lymphocytes % (Auto) 24 % (10-50); Mean Corpuscular HGB Conc 33.9 g/dl (31.0-37.0); Mean Corpuscular Hemoglobin 30.1 pg (25.0-35.0); Mean Corpuscular Volume 89 fL (80-100); Monocytes # (Auto) 0.5 Thou/mm3 (0.0-0.8); Monocytes % (Auto) 4 % (0-12); Neutrophils # (Auto) 7.8 Thou/mm3 (1.8-7.7); Neutrophils % (Auto) 69 % (37-80); Nucleated Red Blood Cell % 0 /100 WBC (0); Platelet Count 239 Thou/mm3 (140-440); RDW Standard Deviation 43.4 fL (36.4-46.3); Red Blood Count 3.29 Miln/mm3 (4.00-5.20); White Blood Count 11.4 Thou/mm3 (3.6-11.0)
--- NOTE | 2024-08-29 17:00 | PC.NURSE ---
attempted to insert IV and give ordered meds pt refused treatment. provider notified.
[2024-08-29 17:06] LABS: Prothrombin Time 11.2 Seconds (9.0-12.2)
[2024-08-29 17:07] LABS: Alanine Aminotransferase 13 U/L (10-49); Albumin, Serum 3.9 gm/dL (3.4-4.8); Albumin/Globulin Ratio 1.5 (1.2-2.2); Alkaline Phosphatase 137 U/L (46-116); Anion Gap 7 (7-16); Aspartate Amino Transferase 15 U/L (0-34); BUN/Creatinine Ratio 16 Ratio (12-20); Bilirubin,Total 0.2 mg/dL (0.3-1.2); Blood Urea Nitrogen 48 mg/dL (9-23); Calcium (Corrected) 9.1 mg/dL (8.5-10.1); Carbon Dioxide 27.7 mMol/L (20.0-31.0); Chloride 105 mMol/L (98-107); Estimated Creatinine Clearance 13.9 mL/min (>60); Globulin 2.6 gm/dL (2.3-3.5); Glucose 140 mg/dL (74-106); Lipase 32 U/L (12-53); Osmolality,Calculated 294 (275-295); Potassium 4.2 mMol/L (3.4-5.1); Sodium 140 mMol/L (136-145); Total Protein 6.5 gm/dL (5.7-8.2); eGFR 15 See Note
--- NOTE | 2024-08-29 17:20 | PD.EDABDPN ---
ED Abdominal Pain RME/HPI General Chief Complaint: Abdominal Pain Stated complaint: ABDOMINAL PAIN Time seen by provider: 08/29/24 16:06 Arrival date/time: 08/29/24 16:03 Limitations: no limitations RME / HPI RME / HPI narrative: 83 year old female with history of CHF, hypertension, diabetes, CKD, hyperlipidemia presents to the ED BIBA from home for evaluation of abdominal pain today. States she was evaluated here yesterday for epigastric abdominal pain, which did not interfere with eating meals. Today, shortly after lunch, the patient again developed similar epigastric pain. There is no associated fever, nausea, or vomiting. While in the ED states her pain has improved. Related Data Home Medications ?Medication ?Instructions ?Recorded ?Confirmed loratadine 10 mg tablet 10 mg PO QDAY 04/22/21 04/27/24 omeprazole 20 mg capsule,delayed 20 mg PO QDAY 06/20/21 04/27/24 release insulin degludec 200 unit/mL (3 45 unit subcut QDAY 08/12/21 04/27/24 mL) subcutaneous pen (Tresiba FlexTouch U-200 insulin) atorvastatin 20 mg tablet 20 mg PO HS 03/11/22 04/27/24 benzonatate 100 mg capsule 100 mg PO TID 03/11/22 04/27/24 insulin aspart U-100 100 unit/mL 6 unit subcut TIDWM 03/11/22 04/27/24 (3 mL) subcutaneous pen (Novolog FlexPen U-100 Insulin aspart) amitriptyline 25 mg tablet 25 mg PO QDAY PRN Anxiety 01/25/23 04/27/24 diltiazem HCl 240 mg 240 mg PO QDAY 05/19/23 04/27/24 tablet,extended release 24 hr carvedilol 6.25 mg tablet 6.25 mg PO Q12H 04/27/24 04/27/24 losartan 100 mg tablet 100 mg PO DAILY for BP 04/27/24 04/27/24 sertraline 25 mg tablet 25 mg PO HS 04/28/24 04/28/24 Previous Rx's ?Medication ?Instructions ?Recorded amlodipine 10 mg tablet 10 mg PO QDAY #30 tabs 01/27/23 furosemide 40 mg tablet (Lasix) 40 mg PO QAM #30 tabs 05/25/23 losartan 50 mg tablet 50 mg PO QDAY #30 tabs 05/25/23 hydroxyzine pamoate 25 mg capsule 25 mg PO HS #30 caps 06/25/23 pentosan polysulfate sodium 100 mg 100 mg PO TID #90 caps 09/21/23 capsule clonidine HCl 0.1 mg tablet 0.1 mg PO BID #60 tabs 04/12/24 Held on 04/27/24. Instructions: Not taking clonidine HCl 0.1 mg tablet 0.1 mg PO BID #60 tabs 04/29/24 oxycodone-acetaminophen 5 mg-325 2 tab PO Q8H PRN pain #20 tabs 06/04/24 mg tablet (Percocet) Allergies Allergy/AdvReac Type Severity Reaction Status Date / Time amoxicillin Allergy Severe Vomiting Verified 08/29/24 16:11 codeine Allergy Severe PALPITATION Verified 08/29/24 16:11 S diazepam Allergy Severe RAPID Verified 08/29/24 16:11 HEARTRATE hydrocodone Allergy Severe Vomiting Verified 08/29/24 16:11 hydromorphone Allergy Severe Agitated Verified 08/29/24 16:11 ibuprofen Allergy Severe BLEEDING Verified 08/29/24 16:11 IN STOMACH PER PT meperidine Allergy Severe RAPID Verified 08/29/24 16:11 HEARTRATE morphine Allergy Severe RAPID Verified 08/29/24 16:11 HEARTRATE propoxyphene Allergy Severe RAPID Verified 08/29/24 16:11 HEARTRATE adhesive tape AdvReac Severe Hives Verified 08/29/24 16:11 levofloxacin AdvReac Severe VOMITS Verified 08/29/24 16:11 Review of Systems Review of Systems Systems Reviewed: All systems reviewed, normal except as documented Past Medical History Past Medical History NEUROLOGIC: Positive Traumatic Brain Injury; Negative Neurological Disorders, Cerebrovascular Accident, Transient Ischemic Attacks (TIA), Dementia, Alzheimer's Disease, Parkinson's Disease, Brain Tumor, Meningitis, Seizures, Epilepsy, Multiple Sclerosis, Cerebral Palsy, Amyotrophic Lateral Sclerosis (ALS/Lilliam Gehrig's), Guillain-[place] Syndrome, Spina Bifida, Paralysis, Peripheral Neuropathy, Junior's Palsy, Subdural Hematoma, Migraine, Head Trauma or Spinal Cord Injury CARDIAC: Positive Cardiac Disorders, Myocardial Infarction, Hypercholesterolemia, Congestive Heart Failure, Edema, Deep Vein Thrombosis and Hypertension; Negative Cardiac Arrhythmia, Atrial Fibrillation, Angina, Heart Murmur, Coronary Artery Disease, Atherosclerotic Heart Disease, Peripheral Vascular Disease, Aneurysm, Congenital Heart Disease, Valvular Heart Disease, Rheumatic Fever, Cardiomyopathy, Pericarditis, Cellulitis, Hypotension or Varicose Veins RESPIRATORY: Positive Chronic Obstructive Pulmonary Disease (COPD), Asthma, Bronchitis and Pneumonia; Negative Emphysema, Pulmonary Fibrosis, Cystic Fibrosis, Tuberculosis, Pulmonary Embolism, Pulmonary Edema or Sleep Apnea GASTROINTESTINAL: Positive Gastrointestinal Disorders, Gastroesophageal Reflux Disease and Obesity; Negative Hepatitis, Cirrhosis, Pancreatitis, Celiac Disease, Gall Bladder Disease, Gastrointestinal Bleed, Esophageal Varices, Romero's Esophagus, Colitis, Ulcerative Colitis, Diverticulitis, Diverticulosis, Ulcer, Colorectal Cancer, Irritable Bowel, Crohn's Disease, Obstructive Bowel, Hiatal Hernia or Hemorrhoids GENITOURINARY: Positive Genitourinary Disorders and Renal Disease; Negative Kidney Stones, Polycystic Kidney Disease, Neurogenic Bladder, Inguinal Hernia, Dialysis or Benign Prostatic Hyperplasia REPRODUCTIVE: Positive Previous Pregnancies; Negative Breast Cancer, Endometriosis, Genital Herpes, Gonorrhea, Pelvic Inflammatory Disease, Syphilis or Uterine Prolapse MUSCULOSKELETAL: Positive Musculoskeletal Disorders and Arthritis; Negative Muscular Dystrophy, Myasthenia Gravis, Marfan's Syndrome, Bone Cancer, Rheumatoid Arthritis, Osteoporosis, Degenerative Disk Disease, Gout, Scoliosis, Carpal Tunnel Syndrome, Fibromyalgia, Fractures, Degenerative Joint Disease, Osteomyelitis or Poliovirus ENT: Negative Cataracts, Glaucoma, Blind, Retinal Detachment, Macular Degeneration, Ear Infection, Deafness, Head Trauma or Eye Prosthesis ENDOCRINE: Positive Endocrine Disorders and Diabetes Mellitus Type 2; Negative Diabetes Mellitus Type 1, Hypoglycemia, Salyer's Syndrome, Burton's Disease, Hyperthyroidism, Hypothyroidism, Parathyroid Disease, Pituitary Disease, Systemic Lupus Erythematosus, Syndrome of Inappropriate Antidiuretic Hormone (SIADH), Adrenal Disease or Graves' Disease HEMATOLOGIC: Negative Blood Disorders, Sickle Cell Disease or Clotting Problems PSYCHO/SOCIAL: Positive Anxiety; Negative Psychiatric Problems, Schizophrenia, Recreational Drug Use, Bipolar Disorder, Depression, Behavior Problems, Self-Mutilation, Attention Deficit Disorder, Attention Deficit Hyperactivity Disorder, Depression, Post Traumatic Stress Disorder or Eating Disorder OTHER HISTORY: Positive Hospitalization, Blood Transfusions, Chicken Pox, Measles and Mumps; Negative Autoimmune Disease, Down Syndrome, Autism, Developmental Delay, Shingles, Falls, Blood Transfusion Reaction, Anesthesia Reactions, Organ Transplant, Chemotherapy, Radiation Therapy, Hyperbaric Therapy, MRSA, VRSA, Vancomycin-Resistant Enterococci, Human Immunodeficiency Virus (HIV), Rubella (Thai Measles), Pertussis, Clostridium Difficile, Cancer, Breast Cancer, Cervical Cancer, Colorectal Cancer, Lung Cancer or Ovarian Cancer Family History FAMILY HISTORY: Positive Family Respiratory Disorders, Family Cardiac Disorders and Family Cancer; Negative Family Psychiatric Problems, Family Gastrointestinal Problems, Family Surgery or Family Anesthesia Reaction Surgical History SURGICAL: Positive Angiogram, Abdominal Surgery, Joint Replacement and Hysterectomy; Negative Cardiac Surgery, Open Heart Surgery, Coronary Artery Bypass Graft, Valve Replacement, Vascular Surgery, Coronary Stent, Cardiac Catheterization, Pacemaker, Auto Implanted Cardiovert Defib, Carotid Endarterectomy, Endocrine Surgery, Thyroidectomy, Ear Surgery, Tympanostomy Tube, Eye Surgery, Nose Surgery, Oral Surgery, Tonsillectomy, Adenoidectomy, Cochlear Implant, Corneal Transplant, Throat Surgery, Tracheostomy, Gastric Bypass Surgery, Gastrostomy, Bowel Surgery, Nephrectomy, Amputation, Arthroscopy, Neurologic Surgery, Brain Shunt, Mastectomy, Lumpectomy, Tubal Ligation, Section or Organ Transplant Social History SMOKING STATUS: Never smoker SECOND HAND EXPOSURE: No SUBSTANCE USE: does not use ED Exam General Limitations: Present no limitations General appearance: Present alert and in no apparent distress Head Head exam: Present atraumatic Eye Eye exam: Present normal appearance, PERRL and EOMI ENT ENT exam: Present normal exam, normal oropharynx and mucous membranes moist Neck Neck exam: Present normal inspection, full ROM and trachea midline Chest Chest inspection: Present normal inspection and symmetric chest wall rise Respiratory Respiratory exam: Present normal lung sounds bilaterally Cardiovascular Cardiovascular exam: Present regular rate, normal rhythm and normal heart sounds Abdominal Exam Abdominal exam: Present soft and normal bowel sounds Extremities Exam Extremities exam: Present normal inspection and full ROM Back Exam Back exam: Present normal inspection and full ROM Neurological Exam Neurological exam: Present alert, oriented X3 and CN II-XII intact Psychiatric Psychiatric exam: Present normal affect and normal mood Skin Skin exam: Present warm, dry, intact and normal color Course Quality Measures none Orders Category Date Time Status Clipper Automatic STAT Care 08/29/24 16:10 Active Continuous Pulse Oximetry STAT Care 08/29/24 16:10 Completed US gall bladder Stat Exams 08/29/24 16:10 Completed CBC Stat Lab 08/29/24 16:37 Completed Comprehensive Metabolic Panel Stat Lab 08/29/24 16:37 Completed Lipase Stat Lab 08/29/24 16:37 Completed Prothrombin Time with INR Stat Lab 08/29/24 16:37 Completed Famotidine Inj [Pepcid Inj] Med 08/29/24 16:10 Discontinued 20 mg IVP X1 ONE Pantoprazole Inj [Protonix Inj] Med 08/29/24 16:10 Discontinued 40 mg IVP X1 ONE Sodium Chloride 0.9% 1000 ml [Ns] 1,000 ml Med 08/29/24 16:10 Discontinued IV 999 mls/hr Vital Signs Vital signs: Vital Signs Temperature 98.1 F 08/29/24 16:26 Pulse Rate 83 08/29/24 16:26 Respiratory Rate 17 08/29/24 16:26 Blood Pressure 179/85 H 08/29/24 16:26 Pulse Oximetry (%) 96 08/29/24 16:26 Oxygen Delivery Method Room Air 08/29/24 16:26 Pulse ox is 96% on room air which is adequate. Abdominal Pain MDM MDM Narrative MDM Narrative:: I, Sherly Mathis, am scribing for and in the presence of Dr. Salvador. 1705: Was notified by the RN that the patient is refusing IV and medications, stating she feels better. I spoke with the patient and states she wants to leave AGAINST MEDICAL ADVICE. However, is requesting to receive her ultrasound report prior to. 1742: Discussed ultrasound report findings with the patient. She is still choosing to leave against medical advise. The patient is alert, oriented and competent at this time. The patient states that they are aware of the serious risks as explained, but they continue to wish to leave against medical advice. Patient data External records reviewed:: [facility] previous records (I reviewed ED visit from yesterday 08/28/2024 ) and EMS form Clinical information provided by:: patient Social determinants that could affect healthcare access:: none Patient has the following chronic illnesses:: CHF, hypertension, diabetes, CKD, hyperlipidemia How is presenting disease/condition affected by chronic disease/condition?: exacerbated by Evaluation data The following diagnostics were reviewed and interpreted by me:: lab results and radiology exam(s) Lab and/or radiology exams considered but not ordered:: None Interpretation Summary: Ordering Physician: Malcom Salvador MD Date of Service: 08/29/24 Procedure(s): US gall bladder Accession Number(s): [id number] cc: Malcom Salvador MD; Rory Meeks MD; Radhames Brito MD~ Examination: Abdomen sonogram, Limited Date and time of exam: August 29, 2024 1640 hours INDICATIONS: Onset epigastric pain today Technique: Real-time morales scale transabdominal sonographic images of the upper abdomen obtained. Findings: Absent gallbladder. Normal common bile duct 0.3 cm Pancreatic and 1.6 cm Liver 13.6 cm fatty infiltration lobular contour Normal hepatopedal portal venous O Patent IVC IMPRESSION: Normal common bile duct Fatty liver Dictated By: Rory Meeks MD Signed By: <Electronically signed by Rory Meeks MD in OV> 08/29/24 1742 Medications / Prescriptions Medications or Prescriptions considered but not ordered:: None Medication administrations:: Medication Administration History Discontinued Medications Famotidine (Famotidine Inj 10 Mg/Ml Vial 2 Ml) 20 mg IVP X1 ONE Stop: 08/29/24 16:11 Last Admin: 08/29/24 17:06 Dose: Not Given Documented By: VG Non-Admin Reason: Patient Refused Sodium Chloride (Ns) 1,000 mls @ 999 mls/hr IV .Q1H1M ONE Stop: 08/29/24 17:10 Last Admin: 08/29/24 17:06 Dose: Not Given Documented By: VG Non-Admin Reason: Patient Refused Pantoprazole Sodium (Pantoprazole Inj 40 Mg Vial) 40 mg IVP X1 ONE Stop: 08/29/24 16:11 Last Admin: 08/29/24 17:06 Dose: Not Given Documented By: VG Non-Admin Reason: Patient Refused See above Consultations Consultation(s) initiated? (list below): No Diagnosis Differential diagnosis abdominal pain: abdominal pain, constipation, gastroenteritis and other (gastritis ) Most likely diagnosis given after review of the tests above:: Abdominal pain Admission Indicated Admission indicated?: not indicated Admission Request Was there a request for admission?: No Disposition Plan Disposition Plan: other (specify) (Patient left AMA ) Discharge Plan Plan Patient Disposition: Left Against Medical Advice Prescriptions/Referrals Prescriptions/Med Rec: No Action loratadine 10 mg tablet 10 mg PO QDAY Patient Comments: TAKE 1 TABLET BY MOUTH EVERY DAY insulin degludec [Tresiba FlexTouch U-200] 200 unit/mL (3 mL) insulin pen 45 unit SUBCUT QDAY omeprazole 20 mg Capsule,Delayed Release(Dr/Ec) 20 mg PO QDAY amitriptyline 25 mg tablet 25 mg PO QDAY PRN (Reason: Anxiety) amlodipine 10 mg tablet 10 mg PO QDAY Qty: 30 0RF diltiazem HCl 240 mg Tablet Extended Release 24 Hr 240 mg PO QDAY furosemide [Lasix] 40 mg tablet 40 mg PO QAM Qty: 30 0RF losartan 50 mg tablet 50 mg PO QDAY Qty: 30 1RF losartan 100 mg tablet 100 mg PO DAILY Patient Comments: TAKE 1 TABLET BY MOUTH EVERY DAY carvedilol 6.25 mg tablet 6.25 mg PO Q12H sertraline 25 mg tablet 25 mg PO HS Patient Comments: TAKE 1 TABLET BY MOUTH AT BEDTIME clonidine HCl 0.1 mg tablet 0.1 mg PO BID Qty: 60 0RF oxycodone-acetaminophen [Percocet] 5-325 mg tablet 2 tab PO Q8H MDD 6 PRN (Reason: pain) Qty: 20 0RF atorvastatin 20 mg tablet 20 mg PO HS benzonatate 100 mg capsule 100 mg PO TID Patient Comments: TAKE 1 CAPSULE BY MOUTH TWICE DAILY insulin aspart U-100 [Novolog FlexPen U-100 Insulin] 100 unit/mL (3 mL) insulin pen 6 unit SUBCUT TIDWM Patient Comments: INJECT 10 UNITS UNDER THE SKIN THREE TIMES DAILY WITH MEALS hydroxyzine pamoate 25 mg capsule 25 mg PO HS Qty: 30 0RF pentosan polysulfate sodium 100 mg capsule 100 mg PO TID Qty: 90 3RF clonidine HCl 0.1 mg tablet 0.1 mg PO BID Qty: 60 1RF Referrals: Radhames Brito MD [Primary Care Provider] - In 1 week Problem List Clinical Impression: Abdominal pain Patient/Caregiver Discharge Instructions Education Materials: ED Pain, Acute, Uncertain Cause Print Language: Georgian
[2024-08-29 17:58] VITALS: BP 205/105; PULSE 81; RESP 17; TEMP 36.6; O2SAT 97
--- NOTE | 2024-08-29 18:20 | PC.NURSE ---
PT WITH ELEVATED BP, PROVIDER NOTIFIED, ORDERS RECEIVED. ATTEMPTED TO MEDICATE PT WITH CLONIDINE, PT REFUSED. PT STATES, I WILL TAKE MY OWN MEDICINE AT HOME. PT EDUCATED ON RISKS. PT WANTING TO SIGN OUT AMA. PROVIDER NOTIFIED. AMA FORM SIGNED.
== END 2024-08-29 18:20 | disposition left against medical advice (07) ==
PROVIDERS: Emergency Provider Family Medicine; PCP Internal Medicine
DX: R10.13 Epigastric pain (principal); E78.5 Hyperlipidemia, unspecified; E11.22 Type 2 diabetes mellitus with diabetic chronic kidney disease; I13.0 Hypertensive heart and chronic kidney disease with heart failure and stage 1 through stage 4 chronic kidney disease, or unspecified chronic kidney disease; I50.9 Heart failure, unspecified; N18.9 Chronic kidney disease, unspecified; K76.0 Fatty (change of) liver, not elsewhere classified
CPT/HCPCS: 36415; 76705; 80053; 83690; 85025; 85610; 99284

== ENCOUNTER 2024-08-31 14:11 | Inpatient (IN) | payer MEDICARE, MEDICAID, SELFPAY ==
[2024-08-31] VITALS (8 sets, daily range): BP systolic 115–190; BP diastolic 65–91; PULSE 57–88; RESP 15–98; TEMP 36.4–36.7; O2SAT 90–99; BMI 32.5; BMI 32.8
--- NOTE | 2024-08-31 14:27 | EDNOTE_ITS ---
ED Headache RME/HPI General Chief Complaint: General Adult/Misc Complain Stated Complaint: HYPERTENSION Time Seen by Provider: 08/31/24 14:56 Arrival date/time: 08/31/24 14:11 RME / HPI RME / HPI Narrative: DR. CONWAY MAIN ED EVALUATION: This section includes all my notes and documentations, including HPI, PE, and ED course.? Henry Conway MD HPI: 83 year old female with past medical history significant for CHF, hypertension, diabetes, CKD, hyperlipidemia sent from Dr. Brito to be admitted to start dialysis. She reports headache. No chest pain or shortness of breath. No other complaints. ROS: All negative except as documented in HPI. Physical Exam: General:? Alert and oriented.? No acute distress.?? Eyes:? Conjunctivae and lids clear.? EOMI.? PERRL. ENT:? No nasal congestion.? Neck:? Supple.? No carotid bruit.? No JVD.?? Heart:? RRR.? Lungs:? No respiratory distress.? Good air movement.? No rhonchi, wheezing, rales.?? Abdomen:? Soft and nontender.? Normal bowel sounds.? No distension.? No rebound or guarding.?? Back:? No CVA tenderness.?? Legs:? No clubbing, cyanosis, edema.? Skin:? Warm and dry.?? Neuro:? Alert and oriented X 3.? Cranial Nerves II-XII grossly intact.? No peripheral motor deficits. I reviewed all diagnostic test results. My interpretation of the EKG is: Sinus rhythm (81 bpm) with nonspecific ST-T berhane nges. My interpretation of the chest x-ray is increased vascular congestion. My review of the CT report is?no acute findings. Blood tests remarkable for Cr 3.1. At this point, diagnoses include ESRD (End Stage Renal Disease). I discussed the case with our hospitalist.? About the presentation and exam and diagnostics and treatments here.? And need of further care in the hospital. Will accept the patient. Henry Conway MD Related Data Home Medications ?Medication ?Instructions ?Recorded ?Confirmed loratadine 10 mg tablet 10 mg PO QDAY 04/22/2108/31 insulin degludec 200 unit/mL (3 45 unit subcut QDAY 08/31/24 mL) subcutaneous pen (Tresiba FlexTouch U-200 insulin) atorvastatin 20 mg tablet 20 mg PO HS 03/11/22 5 benzonatate 100 mg capsule 100 mg PO TID 03/11/2208/13 insulin aspart U-100 100 unit/mL 6 unit subcut TIDWM 1 05/12/21 08/31/24 (3 mL) subcutaneous pen (Novolog FlexPen U-100 Insulin aspart) losartan 100 mg tablet 100 mg PO DAILY for BP 04/2708/31/24 sertraline 25 mg tablet 25 mg PO HS 04/28/24 5 ondansetron HCl 8 mg tablet 8 mg PO Q8H 08/31/2408/31 Previous Rx's ?Medication ?Instructions ?Recorded losartan 50 mg tablet 50 mg PO QDAY #30 tabs 05/24 pentosan polysulfate sodium 100 mg 100 mg PO TID #90 c aps 09/21/23 capsule oxycodone-acetaminophen 5 mg-325 2 tab PO Q8H PRN pain #20 tabs 06/04/24 mg tablet (Percocet) Allergies Allergy/AdvReac Type Severity Reaction Status Date / Time amoxicillin Allergy Severe Vomiting Verified 09/01/24 08:23 codeine Allergy Severe PALPITATION Verified 09/01/24 08:23 S diazepam Allergy Severe RAPID Verified 09/01/24 08:23 HEARTRATE hydrocodone Allergy Severe Vomiting Verified 09/01/24 08:23 hydromorphone Allergy Severe Agitated Verified 09/01/24 08:23 ibuprofen Allergy Severe BLEEDING Verified 09/01/24 08:23 IN STOMACH PER PT meperidine Allergy Severe RAPID Verified 09/01/24 08:23 HEARTRATE morphine Allergy Severe RAPID Verified 09/01/24 08:23 HEARTRATE propoxyphene Allergy Severe RAPID Verified 09/01/24 08:23 HEARTRATE adhesive tape AdvReac Severe Hives Verified 08/31/24 14:49 levofloxacin AdvReac Severe VOMITS Verified 09/01/24 08:23 Course Quality Measures none Orders Category Date Time Status COVID-19 Screening Questionnaire NOW Care 08/31/24 15:58 Active Decision to Admit X1 Care 08/31/24 15:58 Completed EKG (ED ONLY) *Do not use* NOW Care 08/31/24 14:28 Completed Consult to Nephrology Stat Cons 08/31/24 15:[address] head/brain wo con Stat Exams 08/31/24 14:28 Completed EKG (ED Only) Stat Exams 08/31/24 14:28 Draft XR chest 1V portable Stat Exams 08/31/24 14:28 Completed BNP [B-Type Natriuretic Peptide] Stat Lab 08/31/24 14:43 Completed Bilirubin,Direct Stat Lab 08/31/24 14:43 Completed CBC Stat Lab 08/31/24 14:43 Completed CMP [Comprehensive Metabolic Panel] Stat Lab 08/31/24 14:43 Completed Free T4 (Free Thyroxine) Stat Lab 08/31/24 14:43 Completed Magnesium Stat Lab 08/31/24 14:43 Completed TSH [Thyroid Stimulating Hormone] Stat Lab 08/31/24 14:43 Completed Troponin I Stat Lab 08/31/24 14:43 Completed cloNIDine HCL [Catapres] Med 08/31/24 14:28 Discontinued 0.3 mg PO X1 ONE Vital Signs Vital signs: Vital Signs Temperature 98.0 F 08/31/24 14:19 Pulse Rate 85 08/31/24 14:19 Respiratory Rate 17 08/31/24 14:19 Blood Pressure 190/91 H 08/31/24 14:19 Pulse Oximetry (%) 94 L 08/31/24 14:19 Headache MDM Narrative MDM Narrative:: INeida am scribing for and in the presence of Dr. Conway. Patient data External records reviewed:: [facility] previous records and EMS form Clinical information provided by:: patient and EMS Social determinants that could affect healthcare access:: none Patient has the following chronic illnesses:: CHF, hypertension, diabetes, CKD, hyperlipidemia How is presenting disease/condition affected by chronic disease/condition?: exacerbated by Evaluation data The following diagnostics were reviewed and interpreted by me:: lab results, radiology exam(s) and EKG tracing(s) (My interpretation of the EKG is: Sinus rhythm (81 bpm) with nonspecific ST-T changes. Henry Conway MD) Lab and/or radiology exams considered but not ordered:: none Interpretation Summary: I reviewed all diagnostic test results. My interpretation of the EKG is: Sinus rhythm (81 bpm) with nonspecific ST-T changes. My interpretation of the chest x-ray is increased vascular congestion. My review of the CT report is?no acute findings. Blood tests remarkable for Cr 3.1. Medications / Prescriptions Medications or Prescriptions considered but not ordered:: none Medication administrations:: Medication Administration History Acetaminophen (Acetaminophen 325 Mg Tablet) 650 mg PO Q6H PRN PRN Reason: PAIN 1-3 OR FEVER > 101 Stop: 09/30/24 16:16 Last Admin: 09/02/24 01:02 Dose: 650 mg Documented By: ELMER Al Hydrox/Mg Hydrox/Simethicone (Mg Hyd/Al Hyd/Arya (Maalox Reg) Susp 30 Ml Udc) 30 ml PO Q4HR PRN PRN Reason: UPSET STOMACH/INDIGESTION Stop: 10/02/24 00:10 Last Admin: 09/02/24 01:02 Dose: 30 ml Documented By: ELMER Atorvastatin Calcium (Atorvastatin Calcium 20 Mg Tablet) 20 mg PO HS ACE Stop: 09/30/24 20:59 Last Admin: 09/01/24 21:27 Dose: 20 mg Documented By: Admin: 08/31/24 21:55 Dose: 20 mg Documented By: ELMER Benzonatate (Benzonatate 100 Mg Capsule) 100 mg PO TID ACE; Protocol Stop: 10/01/24 07:59 Last Admin: 09/01/24 21:27 Dose: Not Given Documented By: ELMER Non-Admin Reason: Patient Refused Admin: 09/01/24 16:24 Dose: 100 mg Documented By: NORMA Comments: pt was in dialysis Admin: 09/01/24 07:58 Dose: 100 mg Documented By: NORMA Dextrose (Dextrose 50%-Water Inj 50 Ml Syringe) 25 ml IV Q15MIN PRN PRN Reason: BG 50-70 responsive npo pt Stop: 09/30/24 16:23 Dextrose (Dextrose 50%-Water Inj 50 Ml Syringe) 50 ml IV Q15MIN PRN PRN Reason: BG <50 OR BG <70 & pt unresponsive Stop: 09/30/24 16:23 Glucagon (Glucagon Inj 1 Mg Vial) 1 mg IM Q15MIN PRN PRN Reason: BG <70, and no IV access Heparin Sodium (Porcine) (Heparin Sod Inj 1000 Unit/Ml Vial 10 Ml) 3,800 unit INDWELLCAT X1 PRN PRN Reason: DIALYSIS Stop: 09/15/24 15:26 Hydralazine HCl (Hydralazine Inj 20 Mg/Ml Vial) 10 mg IVP Q6H PRN PRN Reason: hypertension Stop: 09/30/24 16:29 Last Admin: 09/01/24 11:58 Dose: 10 mg Documented By: DL Hydromorphone HCl (Hydromorphone Inj 2 Mg/Ml Vial) 0.25 mg IVP Q6HR PRN PRN Reason: Pain 7-10 Stop: 09/06/24 20:57 Insulin Glargine (Insulin Glargine (Lantus) 5 Unit/0.05 Ml (Per 5 Units)) 30 unit SC QDAY [facility] Stop: 10/01/24 08:59 Last Admin: 09/01/24 07:58 Dose: Not Given Documented By: NORMA Non-Admin Reason: pt npo Insulin Human Lispro (Insulin Lispro (Admelog) 1 Unit/0.01 Ml Unit) 0 unit SC [facility]; Protocol Stop: 10/01/24 16:59 Last Admin: 09/01/24 20:51 Dose: Not Given Documented By: ELMER Non-Admin Reason: Patient Refused Admin: 09/01/24 16:43 Dose: Not Given Documented By: NORMA Non-Admin Reason: Per Protocol Loratadine (Loratadine 10 Mg Tablet) 10 mg PO QDAY [facility] Stop: 10/01/24 08:59 Last Admin: 09/01/24 08:00 Dose: 10 mg Documented By: NORMA Losartan Potassium (Losartan Potassium 25 Mg Tablet) 100 mg PO QDAY [facility] Stop: 10/01/24 08:59 Last Admin: 09/01/24 08:00 Dose: 100 mg Documented By: NORMA Non-Formulary Medication (Pentosan Polysulfate Sodium) 100 mg PO TID [facility] Stop: 09/30/24 21:59 Last Admin: 09/01/24 21:18 Dose: Not Given Documented By: MP Non-Admin Reason: Medication Not Available Admin: 09/01/24 18:01 Dose: Not Given Documented By: DL Non-Admin Reason: family working on bringing medication Admin: 09/01/24 05:13 Dose: Not Given Documented By: MP Non-Admin Reason: Medication Not Available Admin: 08/31/24 21:52 Dose: Not Given Documented By: MP Non-Admin Reason: Medication Not Available Ondansetron HCl (Ondansetron Inj 2 Mg/Ml Inj 2 Ml) 4 mg IVP Q6H PRN; Protocol PRN Reason: NAUSEA OR VOMITING Stop: 09/30/24 16:16 Last Admin: 09/01/24 18:21 Dose: 4 mg Documented By: Admin: 09/01/24 07:58 Dose: 4 mg Documented By: DL Sertraline HCl (Sertraline Hcl 25 Mg Tablet) 25 mg PO HS ACE Stop: 09/30/24 20:59 Last Admin: 09/01/24 21:27 Dose: 25 mg Documented By: Admin: 08/31/24 21:00 Dose: Not Given Documented By: MP Non-Admin Reason: Patient Refused Discontinued Medications Acetaminophen (Acetaminophen 325 Mg Tablet) 650 mg PO Q6H PRN PRN Reason: PAIN OR FEVER > 101 Stop: 09/30/24 16:16 Last Admin: 09/01/24 18:44 Dose: 650 mg Documented By: Admin: 09/01/24 12:44 Dose: 650 mg Documented By: Admin: 09/01/24 02:32 Dose: 325 mg Documented By: KENN Comments: Patient only took 325mg - 1 tab. Refused the other 325 mg. Clonidine (Clonidine Hcl 0.1 Mg Tablet) 0.3 mg PO X1 ONE Stop: 08/31/24 14:29 Last Admin: 08/31/24 15:52 Dose: 0.3 mg Documented By: ED Epoetin Shaka (Epoetin Shaka-Epbx Inj 10,000 Unit/Ml Vial (Esrd)) 10,000 unit SC X1 ONE Stop: 09/01/24 14:41 Last Admin: 09/01/24 14:30 Dose: 10,000 unit Documented By: ED(2) Fentanyl Citrate (Fentanyl Cit Inj 50 Mcg/Ml Amp 2ml) Confirm Administered Dose 100 mcg .ROUTE .STK-MED ONE Stop: 09/01/24 10:08 Last Admin: 09/01/24 10:36 Dose: Not Given Documented By: CU Non-Admin Reason: Override Medication Fentanyl Citrate (Fentanyl Cit Inj 50 Mcg/Ml Amp 2ml) 50 mcg IVP X1 ONE Stop: 09/01/24 10:31 Last Admin: 09/01/24 10:30 Dose: 50 mcg Documented By: MELO Fentanyl Citrate (Fentanyl Cit Inj 50 Mcg/Ml Amp 2ml) 25 mcg IVP X1 ONE Stop: 09/01/24 10:40 Last Admin: 09/01/24 10:39 Dose: 25 mcg Documented By: MELO Heparin Sodium (Beef Lung) (Heparin Sod Lock Syr 100 Unit/Ml) Confirm Administered Dose 500 unit .ROUTE .STK-MED ONE Stop: 09/01/24 10:08 Last Admin: 09/01/24 10:37 Dose: Not Given Documented By: MELO Non-Admin Reason: Override Medication Heparin Sodium (Beef Lung) (Heparin Sod Lock Syr 100 Unit/Ml) 500 unit [facility] X1 ONE Stop: 09/01/24 10:31 Last Admin: 09/01/24 10:30 Dose: 500 unit Documented By: MELO Comments: to sterile field Heparin Sodium (Porcine) (Heparin Sod Inj 5000 Unit/Ml Vial) 5,000 unit SC Q8HR [facility] Stop: 09/14/24 21:59 Heparin Sodium (Porcine) (Heparin Sod Inj 1000 Unit/Ml Vial) Confirm Administered Dose 5,000 unit .ROUTE .[facility]-MED ONE Stop: 09/01/24 10:08 Last Admin: 09/01/24 10:37 Dose: Not Given Documented By: MELO Non-Admin Reason: Override Medication Heparin Sodium (Porcine) (Heparin Sod Inj 1000 Unit/Ml Vial) 3,800 unit INDWELLCAT X1 ONE Stop: 09/01/24 11:03 Last Admin: 09/01/24 11:06 Dose: 3,800 unit Documented By: MELO Co-signed By: RDL Insulin Human Lispro (Insulin Lispro (Admelog) 1 Unit/0.01 Ml Unit) 0 unit SC Q6HR ACE; Protocol Stop: 09/30/24 17:59 Last Admin: 09/01/24 11:57 Dose: Not Given Documented By: NORMA Non-Admin Reason: Per Protocol Admin: 09/01/24 05:13 Dose: Not Given Documented By: ELMER Non-Admin Reason: NPO Admin: 09/01/24 00:49 Dose: Not Given Documented By: MP Non-Admin Reason: NPO Admin: 08/31/24 21:51 Dose: Not Given Documented By: ELMER Non-Admin Reason: Patient Refused Lidocaine HCl (Lidocaine Inj Pf 1% 30 Ml Vial) Confirm Administered Dose 30 ml .ROUTE .STK-MED ONE Stop: 09/01/24 10:08 Last Admin: 09/01/24 10:37 Dose: Not Given Documented By: CU Non-Admin Reason: Override Medication Lidocaine HCl (Lidocaine Inj Pf 1% 30 Ml Vial) 10 ml INFL X1 ONE Stop: 09/01/24 10:35 Last Admin: 09/01/24 10:34 Dose: 10 ml Documented By: MELO Naloxone HCl (Naloxone Inj 0.4 Mg/Ml Vial) Confirm Administered Dose 0.4 mg .ROUTE .STK-MED ONE Stop: 09/01/24 10:08 Last Admin: 09/01/24 10:38 Dose: Not Given Documented By: CU Non-Admin Reason: Override Medication Ondansetron HCl (Ondansetron Inj 2 Mg/Ml Inj 2 Ml) Confirm Administered Dose 4 mg .ROUTE .STK-MED ONE Stop: 09/01/24 10:08 Last Admin: 09/01/24 10:38 Dose: Not Given Documented By: CU Non-Admin Reason: Override Medication Tuberculin PPD (Tuberculin Ppd Inj 5 Unit/0.1 Ml Dose) 5 unit ID X1 ONE Stop: 08/31/24 16:33 Last Admin: 08/31/24 22:03 Dose: 5 unit Documented By: ELMER No treatment from fl. Consultations Consultation(s) initiated? (list below): Yes Diagnosis Differential diagnosis headache: migraine, tension headache, subarachnoid hemorrhage, headache, sinusitis, postconcussion syndrome and other (ESRD) Most likely diagnosis given after review of the tests above:: ESRD (End Stage Renal Disease) Admission Indicated Admission indicated?: indicated Explain why admission is indicated or not indicated:: ESRD to start dialysis. Admission Request Was there a request for admission?: Yes Admission Attestation Admission request attestation: Discussed case with Hospitalist service regarding admission. Discussed patients ED course, exam findings, labs, and radiology results. The Hospitalist [agrees] to accept the patient for admission. Disposition Plan Disposition Plan: Admit Discharge Plan Plan Patient Disposition: Admit Acute Care w/in Hospital Problem List Clinical Impression: ESRD (end stage renal disease)
--- NOTE | 2024-08-31 14:28 | XR_ITS ---
Examination: CT brain head without contrast. 2-D sagittal coronal reconstructions Date and time of exam:August 31, 2024 1426 hours Comparison April 29, 2024 INDICATIONS: Head pain high blood pressure today CTDI: vol (mGy):48.2 DLP: (mGycm):918 Technique: Multiple CT axial sections of the brain have been obtained, 5 mm slice thickness. Contrast has not been administered. 2-D sagittal, coronal reconstructions have been obtained Low dose protocols were performed. One or more of the following dose reduction techniques were used; automated exposure control, adjustment of the mA and/or KV according to patient size, use of iterative reconstruction technique. Findings: No significant ventricular enlargement. Intra-axial or extra-axial hemorrhage density is not seen. No mass effect or midline shift Basal cisterns are not remarkable. Fourth ventricle is midline. Cranial vault intact. Impression: Negative for acute hemorrhage, mass effect or midline shift
--- NOTE | 2024-08-31 14:28 | XR_ITS ---
Examination: AP chest single view Technique one AP portable upright chest single view Date and time: August 31, 2024 1503 hours Comparison June 04, 2024 INDICATIONS: Shortness of breath chest pain today. FINDINGS: Mild prominence left ventricle Mild vascular congestion. No lobar pneumonia or pulmonary edema Significant osteopenia IMPRESSION: Mild prominence left ventricle Mild vascular congestion
--- NOTE | 2024-08-31 14:28 | EKG_ITS ---
[facility] Test Date: 2024-08-31 Pat Name: TYREE NOLASCO Department: Room: - Gender: Female [employer]: : 1940 Requested By: Henry Monroe Order Number: [id number] Reading MD: Henry Monroe Measurements Intervals [place] Rate: 81 P: 47 PA: 132 QRS: 28 QRSD: 106 T: 115 QT: 384 QTc: 446 Interpretive Statements SINUS RHYTHM NONSPECIFIC ST & T-WAVE ABNORMALITY Compared to ECG 08/07/2024 19:06:42 No significant changes /store/S0/[id number]
[2024-08-31 14:52] LABS: Basophils # (Auto) 0.1 Thou/mm3 (0.0-0.2); Basophils % (Auto) 1 % (0-2.5); Eosinophils # (Auto) 0.1 Thou/mm3 (0.0-0.5); Eosinophils % (Auto) 1 % (0-10); Hematocrit 29.1 % (36.0-46.0); Hemoglobin 10.1 g/dL (12.0-16.0); Immature Granulocytes % (Auto) 1 % (0-0); Lymphocytes # (Auto) 2.8 Thou/mm3 (1.0-4.8); Lymphocytes % (Auto) 23 % (10-50); Mean Corpuscular HGB Conc 34.7 g/dl (31.0-37.0); Mean Corpuscular Hemoglobin 30.2 pg (25.0-35.0); Mean Corpuscular Volume 87 fL (80-100); Monocytes # (Auto) 0.5 Thou/mm3 (0.0-0.8); Monocytes % (Auto) 4 % (0-12); Neutrophils # (Auto) 8.6 Thou/mm3 (1.8-7.7); Neutrophils % (Auto) 71 % (37-80); Nucleated Red Blood Cell % 0 /100 WBC (0); Platelet Count 249 Thou/mm3 (140-440); RDW Standard Deviation 41.3 fL (36.4-46.3); Red Blood Count 3.34 Miln/mm3 (4.00-5.20); White Blood Count 12.2 Thou/mm3 (3.6-11.0)
[2024-08-31 15:12] LABS: B-Type Natriuretic Peptide 63 pg/mL (0-100)
[2024-08-31 15:17] LABS: Alanine Aminotransferase 12 U/L (10-49); Albumin/Globulin Ratio 1.5 (1.2-2.2); Alkaline Phosphatase 142 U/L (46-116); Anion Gap 6 (7-16); Aspartate Amino Transferase 15 U/L (0-34); BUN/Creatinine Ratio 14 Ratio (12-20); Bilirubin,Direct 0.1 mg/dL (0.0-0.3); Bilirubin,Total 0.4 mg/dL (0.3-1.2); Blood Urea Nitrogen 43 mg/dL (9-23); Calcium 8.8 mg/dL (8.3-10.6); Calcium (Corrected) 8.8 mg/dL (8.5-10.1); Chloride 100 mMol/L (98-107); Creatinine (Component) 3.1 mg/dL (0.6-1.3); Estimated Creatinine Clearance 13.5 mL/min (>60); Free T4 (Free Thyroxine) 1.12 ng/dL (0.89-1.76); Globulin 2.6 gm/dL (2.3-3.5); Glucose 196 mg/dL (74-106); Magnesium 2.5 mg/dL (1.6-2.6); Osmolality,Calculated 280 (275-295); Potassium 4.6 mMol/L (3.4-5.1); Sodium 132 mMol/L (136-145); Thyroid Stimulating Hormone 1.66 uIU/mL (0.55-4.78); Total Protein 6.6 gm/dL (5.7-8.2); Troponin I < 0.020 ng/mL (0.0-0.045); eGFR 15 See Note
[2024-08-31] MEDS: cloNIDine HCL 0.1 MG TABLET 0.3 MG PO (15:52)
[2024-08-31 16:58] LABS: Partial Thromboplastin Time 34.8 Seconds (22.0-36.0); Prothrombin Time 11.2 Seconds (9.0-12.2)
--- NOTE | 2024-08-31 17:33 | PD.RESHP ---
Documentation for date of: 08/31/24 HPI History of Present Illness Chief complaint: admitting for dialysis History of present illness: Alberta Saldivar is 83 yr female with PMH of primary hypertension insulin-dependent diabetes mellitus type 2, CKD stage IV [baseline CR 2.7] follows up with Dr. Brito, chronic interstitial cystitis, chronic normocytic anemia, hyperlipidemia, anxiety and heart failure with preserved ejection fraction [EF 60 to 65%] presenting to ED after being sent by nephrology Dr Brito. Per patient in the ED, she is to start dialysis.In ED sodium 132, potassium 4.6, BUN 43, creatinine 3.1, GFR 15, glucose 196, other electrolytes within normal limits. She also complains of stomach pain which appears to be chronic per chart review and dysuria associated most likely with her history of cystitis. Urine analysis in the ED was negative for UTI. States that she uses a CGM for monitoring sugars. Postprandial readings 80?100. Also has been experiencing loose stools for past 2 days with 2-3 episodes. She has been following with Dr. Brito for the past [address] head negative for acute hemorrhage, EKG showed sinus rhythm rate 81. Dr. Evans was consulted. Patient to be admitted for catheter insertion and starting dialysis. PMH: As noted above PSH: Appendectomy, cholecystectomy over 10 years ago Social: Lives in [place], unemployed, denies smoking, denies drinking Meds: Furosemide 40 daily, Elmiron 100 3 times daily, atorvastatin 20, sertraline 25 mg, hydrocodone 5/325 every 8 hours, losartan 100 daily Allergies: Multiple, please refer to chart Review of Systems Review of Systems Systems Reviewed: All systems reviewed, normal except as documented Exam Vital Signs Temp Pulse Resp BP Pulse Ox O2 Del Method 97.9 F 78 18 120/75 96 Room Air 08/31/24 16:45 08/31/24 16:45 08/31/24 16:45 08/31/24 16:45 08/31/24 16:45 08/31/24 16:45 Narrative Exam General: Elderly female, No acute distress, cooperative, emotional sometimes HEENT: NCAT, No JVD noted. Mucosa moist. Pupils are equal and reactive to light bilaterally Cardiovascular: Normal S1 and S2. Regular rate and rhythm. Respiratory: Lungs are clear to auscultation bilaterally. No wheezing or crackles heard. Abdomen: Soft, nontender, not distended, normal bowel sounds. Skin: Warm to touch, dry, no rashes noted Musculoskeletal: No gross injuries. Able to move all 4 extremities. +1 edema Neuro: Alert and oriented x3. No focal neuro deficits. Psych: Normal affect and mood Results: Labs 09/01/24 05:04 09/01/24 05:04 Labs: Short CBC 08/31/24 Range/Units 14:43 WBC 12.2 H (3.6-11.0) Thou/mm3 Hgb 10.1 L (12.0-16.0) g/dL Hct 29.1 L (36.0-46.0) % Plt Count 249 (140-440) Thou/mm3 BMP 08/31/24 14:43 Sodium 132 L Potassium 4.6 Chloride 100 Carbon Dioxide 26.0 BUN 43 H Creatinine 3.1 H Glucose 196 H D Calcium 8.8 Cardiac Enzymes 08/31/24 Range/Units 14:43 Troponin I < 0.020 (0.0-0.045) ng/mL Liver Function 08/31/24 Range/Units 14:43 Total Bilirubin 0.4 (0.3-1.2) mg/dL Direct Bilirubin 0.1 (0.0-0.3) mg/dL AST 15 (0-34) U/L ALT 12 (10-49) U/L Alkaline Phosphatase 142 H (46-116) U/L Albumin 4.0 (3.4-4.8) gm/dL Quality Measures Quality Measures none Advance care planning discussed with:: patient Medications Home Medications and Allergies Home Medications ?Medication ?Instructions ?Recorded ?Confirmed ?Type loratadine 10 mg tablet 10 mg PO QDAY 04/22/21 08/31/24 History insulin degludec 200 unit/mL (3 45 unit subcut QDAY 08/12/21 08/31/24 History mL) subcutaneous pen (Tresiba FlexTouch U-200 insulin) atorvastatin 20 mg tablet 20 mg PO HS 03/11/22 08/31/24 History benzonatate 100 mg capsule 100 mg PO TID 03/11/22 08/31/24 History insulin aspart U-100 100 unit/mL 6 unit subcut TIDWM 03/11/22 08/31/24 History (3 mL) subcutaneous pen (Novolog FlexPen U-100 Insulin aspart) losartan 100 mg tablet 100 mg PO DAILY for BP 04/27/24 08/31/24 History sertraline 25 mg tablet 25 mg PO HS 04/28/24 08/31/24 History ondansetron HCl 8 mg tablet 8 mg PO Q8H 08/31/24 08/31/24 History Allergies Allergy/AdvReac Type Severity Reaction Status Date / Time amoxicillin Allergy Severe Vomiting Verified 09/01/24 08:23 codeine Allergy Severe PALPITATION Verified 09/01/24 08:23 S diazepam Allergy Severe RAPID Verified 09/01/24 08:23 HEARTRATE hydrocodone Allergy Severe Vomiting Verified 09/01/24 08:23 hydromorphone Allergy Severe Agitated Verified 09/01/24 08:23 ibuprofen Allergy Severe BLEEDING Verified 09/01/24 08:23 IN STOMACH PER PT meperidine Allergy Severe RAPID Verified 09/01/24 08:23 HEARTRATE morphine Allergy Severe RAPID Verified 09/01/24 08:23 HEARTRATE propoxyphene Allergy Severe RAPID Verified 09/01/24 08:23 HEARTRATE adhesive tape AdvReac Severe Hives Verified 08/31/24 14:49 levofloxacin AdvReac Severe VOMITS Verified 09/01/24 08:23 Visit Medications Acetaminophen (Acetaminophen 325 Mg Tablet) 650 mg PO Q6H PRN PRN Reason: PAIN OR FEVER > 101 Stop: 09/30/24 16:16 Atorvastatin Calcium (Atorvastatin Calcium 20 Mg Tablet) 20 mg PO HS ACE Stop: 09/30/24 20:59 Dextrose (Dextrose 50%-Water Inj 50 Ml Syringe) 25 ml IV Q15MIN PRN PRN Reason: BG 50-70 responsive npo pt Stop: 09/30/24 16:23 Dextrose (Dextrose 50%-Water Inj 50 Ml Syringe) 50 ml IV Q15MIN PRN PRN Reason: BG <50 OR BG <70 & pt unresponsive Stop: 09/30/24 16:23 Glucagon (Glucagon Inj 1 Mg Vial) 1 mg IM Q15MIN PRN PRN Reason: BG <70, and no IV access Heparin Sodium (Porcine) (Heparin Sod Inj 5000 Unit/Ml Vial) 5,000 unit SC Q8HR ACE Stop: 09/14/24 21:59 Hydralazine HCl (Hydralazine Inj 20 Mg/Ml Vial) 10 mg IVP Q6H PRN PRN Reason: hypertension Stop: 09/30/24 16:29 Insulin Glargine (Insulin Glargine (Lantus) 5 Unit/0.05 Ml (Per 5 Units)) 30 unit SC QDAY ACE Stop: 10/01/24 08:59 Insulin Human Lispro (Insulin Lispro (Admelog) 1 Unit/0.01 Ml Unit) 0 unit SC Q6HR ACE; Protocol Stop: 09/30/24 17:59 Losartan Potassium (Losartan Potassium 25 Mg Tablet) 100 mg PO QDAY ACE Stop: 10/01/24 08:59 Non-Formulary Medication (Pentosan Polysulfate Sodium) 100 mg PO TID ACE Stop: 09/30/24 21:59 Ondansetron HCl (Ondansetron Inj 2 Mg/Ml Inj 2 Ml) 4 mg IVP Q6H PRN; Protocol PRN Reason: NAUSEA OR VOMITING Stop: 09/30/24 16:16 Sertraline HCl (Sertraline Hcl 25 Mg Tablet) 25 mg PO HS ACE Stop: 09/30/24 20:59 Discontinued Medications Clonidine (Clonidine Hcl 0.1 Mg Tablet) 0.3 mg PO X1 ONE Stop: 08/31/24 14:29 Last Admin: 08/31/24 15:52 Dose: 0.3 mg Tuberculin PPD (Tuberculin Ppd Inj 5 Unit/0.1 Ml Dose) 5 unit ID X1 ONE Stop: 08/31/24 16:33 Assessment & Plan Plan Alberta Saldivar is 83 yr female with PMH of primary hypertension insulin-dependent diabetes mellitus type 2, CKD stage IV [baseline CR 2.7] follows up with Dr. Brito, chronic interstitial cystitis, chronic normocytic anemia, hyperlipidemia, anxiety and heart failure with preserved ejection fraction [EF 60 to 65%] presenting to ED on 08/31/[address] Brito. Patient to be admitted for catheter insertion and starting dialysis. #Hypertensive urgency #Primary hypertension #Hyperlipidemia BP 190/91, heart rate 85. Patient was endorsing headache. Is on losartan 100 mg daily. Compliant with medications and checks her blood pressure every day ranging 128-140 systolic. ? Resume home antihypertensive ?IV hydralazine 10 mg q6hr PRN for SBP>170, DBP >110, hold if HR >90 -montior BP - Resumed atorvastatin 20 mg daily #ESRD Creatinine 3.1, GFR 15. Electrolytes otherwise unremarkable. She has been following with Dr. Brito since past 4 years. Likely renal disease in setting of diabetes and poorly controlled hypertension. She is unable to communicate properly quantity of urine output. ? Nephrology Dr Brito consulted - Admitting patient for starting hemodialysis ? Hepatitis panel pending ? PPD test pending -Renally dose medications #Interstitial cystitis Experiences frequent UTIs and frequent use of antibiotics. Currently on medication Elmiron for painful bladder. ? Continue to monitor ? Urine culture pending ? Follow-up outpatient #Heart failure with preserved ejection fraction [EF 60 to 65%] Patient currently denies any symptoms of SOB, PND, orthopnea and chest pain. NYHA class III Home medication Lasix 40 Mg p.o. daily. -Resume home medications #Insulin-dependent type 2 diabetes mellitus-poorly controlled Glucose on admission 196. Last A1c 8.5 on 04/28/24. Patient takes 50 units degludac daily and 10units lispro TID for diabetes at home. -Held home medications -Bedside blood glucose checks ACHS -Insulin lispro sliding scale -Carb consistent low diet #Anxiety #Depression Resumed home meds sertraline 25 mg daily Health maintenance: Dispo: tele, ESRD will start dialysis FEN: renal, low carb DVT prophylaxis: Subcu heparin CODE STATUS: Full code The patient's management plan was discussed with my attending physician Dr. Zuñiga. Tennille Bernal, PGY-1 Attending Provider Attestation/Addendum I attest that I was physically present for the evaluation, physical examination, lab and imaging review of the patient with the residents. I discussed the case with the residents and agree with the findings and plans of care as documented above. Patient is a 83 years old female with past medical history of hypertension, diabetes mellitus, CKD stage IV, chronic anemia, chronic interstitial cystitis, anxiety and heart failure with preserved ejection fraction who presented to the ED with complaint of headache. 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 in the ED, her blood pressure was 190/91. Rest of the vitals were within normal limits. Lab results show WBC of 12.2, hemoglobin 10.1, sodium 132, BUN/creatinine of 43/3.1, GFR 15, glucose 196. Dr. Brito was contacted by ED, recommended starting patient on hemodialysis. After examination of the patient and review of the clinical data I feel that this patient needs admission to the hospital for further treatment/evaluation of hypertensive urgency and ESRD needing hemodialysis. Patient received clonidine in the ED with improvement in her blood pressure. We will resume her home medication and as needed hydralazine starting tomorrow. We will keep her n.p.o. after overnight for dialysis catheter placement tomorrow. Nephrology consult placed, will arrange hemodialysis for the patient, appreciate recommendations. Jacinta Zuñiga MD
[2024-08-31] MEDS: ATORVASTATIN CALCIUM 20 MG TABLET PO (21:55)
[2024-08-31] MEDS: TUBERCULIN PPD INJ 5 UNIT/0.1 ML DOSE ID (22:03)
[2024-09-01] VITALS (27 sets, daily range): BP systolic 142–201; BP diastolic 67–129; PULSE 55–83; RESP 12–95; TEMP 36–36.9; O2SAT 90–100; BMI 32.8
[2024-09-01] MEDS: ACETAMINOPHEN 325 MG TABLET 650 MG PO ×3 (02:32→18:44)
[2024-09-01 05:47] LABS: Basophils % (Auto) 0 % (0-2.5); Eosinophils # (Auto) 0.1 Thou/mm3 (0.0-0.5); Eosinophils % (Auto) 1 % (0-10); Hematocrit 26.1 % (36.0-46.0); Hemoglobin 8.9 g/dL (12.0-16.0); Immature Granulocytes % (Auto) 0 % (0-0); Immature Granulocytes Auto 0.04 Thou/mm3 (0.00-0.00); Lymphocytes # (Auto) 3.2 Thou/mm3 (1.0-4.8); Lymphocytes % (Auto) 33 % (10-50); Mean Corpuscular HGB Conc 34.1 g/dl (31.0-37.0); Mean Corpuscular Hemoglobin 30.3 pg (25.0-35.0); Mean Corpuscular Volume 89 fL (80-100); Monocytes # (Auto) 0.7 Thou/mm3 (0.0-0.8); Monocytes % (Auto) 7 % (0-12); Neutrophils # (Auto) 5.6 Thou/mm3 (1.8-7.7); Neutrophils % (Auto) 58 % (37-80); Nucleated Red Blood Cell % 0 /100 WBC (0); Platelet Count 226 Thou/mm3 (140-440); RDW Standard Deviation 41.1 fL (36.4-46.3); Red Blood Count 2.94 Miln/mm3 (4.00-5.20); White Blood Count 9.7 Thou/mm3 (3.6-11.0)
[2024-09-01 05:50] LABS: Glucose Estimated Average 177 mg/dL (80-131); Hemoglobin A1C 7.8 % Hgb (4.8-6.0)
[2024-09-01 06:13] LABS: INR 1.1 (0.9-1.3); Partial Thromboplastin Time 31.6 Seconds (22.0-36.0); Prothrombin Time 11.5 Seconds (9.0-12.2)
[2024-09-01 06:29] LABS: Alanine Aminotransferase 9 U/L (10-49); Albumin, Serum 3.5 gm/dL (3.4-4.8); Albumin/Globulin Ratio 1.6 (1.2-2.2); Alkaline Phosphatase 110 U/L (46-116); Anion Gap 5 (7-16); Aspartate Amino Transferase 12 U/L (0-34); BUN/Creatinine Ratio 15 Ratio (12-20); Bilirubin,Total 0.3 mg/dL (0.3-1.2); Blood Urea Nitrogen 47 mg/dL (9-23); Calcium 8.8 mg/dL (8.3-10.6); Calcium (Corrected) 9.2 mg/dL (8.5-10.1); Carbon Dioxide 28.7 mMol/L (20.0-31.0); Cardiac Risk Estimate 3.3 RATIO (3.7-5.6); Chloride 103 mMol/L (98-107); Cholesterol 145 mg/dL (132-200); Creatinine (Component) 3.1 mg/dL (0.6-1.3); Estimated Creatinine Clearance 13.5 mL/min (>60); Globulin 2.2 gm/dL (2.3-3.5); Glucose 109 mg/dL (74-106); HDL Cholesterol 44 mg/dL (40-60); LDL Cholesterol,Calculated 68 mg/dL (0-130); Magnesium 2.8 mg/dL (1.6-2.6); Osmolality,Calculated 287 (275-295); Phosphorous 5.3 mg/dL (2.4-5.1); Potassium 4.9 mMol/L (3.4-5.1); Sodium 137 mMol/L (136-145); Total Protein 5.7 gm/dL (5.7-8.2); Triglycerides 163 mg/dL (30-150); eGFR 15 See Note
[2024-09-01 06:40] LABS: Hepatitis A Antibody IgM Non Reactive (Non React); Hepatitis B Core Antibody IgM Non Reactive (Non React); Hepatitis B Surface Antigen Non Reactive (Non React); Hepatitis C Antibody Non Reactive (Non React)
[2024-09-01] MEDS: ONDANSETRON INJ 2 MG/ML INJ 2 ML 4 MG IVP ×2 (07:58→18:21)
[2024-09-01] MEDS: BENZONATATE 100 MG CAPSULE PO ×2 (07:58→16:24)
--- NOTE | 2024-09-01 07:59 | PD.RESCONSUL ---
HPI Data of Consult Consult date: 09/01/24 Requesting Physician: Jacinta Zuñiga MD Admitting Provider: Jacinta Zuñiga MD Attending Provider: Jacinta Zuñiga MD Primary Care Provider: Collin Herrera PA-C Consult Narrative Reason for consult: ESRD History of present illness: Ms. Saldivar is an 83-year-old female with a past medical history of CKD stage IV/ V, secondary to diabetic nephropathy, hypertension- uncontrolled for years, interstitial cystitis, anemia, hyperlipidemia, anxiety and HFpEF, who was seen in the emergency room complaining of severe abdominal pain. The patient has poorly controlled hypertension, and has been having progressive worsening of her GFR for the past few months, currently dropping below 15, plan to start renal replacement therapy. The patient had multiple ER visits during past 3 days consecutively for review of symptoms including abdominal pain, headache and anxiety. In the ER, patient was noted to have hypertensive urgency,patient was given clonidine 0.3 mg x 1, which made her sick to her stomach. Did help improve the blood pressure.initial CT of the head was negative for acute hemorrhage, labs consistent with end-stage renal disease. Also noted hypertensive the patient will be admitted to the hospital for management of end-stage renal disease, initiate hemodialysis. The patient will require SNF placement on discharge. cc:: cc: Jacinta Zuñiga MD Review of Systems Review of Systems Systems Reviewed: All systems reviewed, normal except as documented Past Medical History Past Medical History NEUROLOGIC: Positive Traumatic Brain Injury; Negative Neurological Disorders, Cerebrovascular Accident, Transient Ischemic Attacks (TIA), Dementia, Alzheimer's Disease, Parkinson's Disease, Brain Tumor, Meningitis, Seizures, Epilepsy, Multiple Sclerosis, Cerebral Palsy, Amyotrophic Lateral Sclerosis (ALS/Lilliam Gehrig's), Guillain-[place] Syndrome, Spina Bifida, Paralysis, Peripheral Neuropathy, Junior's Palsy, Subdural Hematoma, Migraine, Head Trauma or Spinal Cord Injury CARDIAC: Positive Cardiac Disorders, Myocardial Infarction, Angina, Hypercholesterolemia, Congestive Heart Failure, Edema, Deep Vein Thrombosis and Hypertension; Negative Cardiac Arrhythmia, Atrial Fibrillation, Heart Murmur, Coronary Artery Disease, Atherosclerotic Heart Disease, Peripheral Vascular Disease, Aneurysm, Congenital Heart Disease, Valvular Heart Disease, Rheumatic Fever, Cardiomyopathy, Pericarditis, Cellulitis, Hypotension or Varicose Veins RESPIRATORY: Positive Chronic Obstructive Pulmonary Disease (COPD), Asthma, Bronchitis and Pneumonia; Negative Emphysema, Pulmonary Fibrosis, Cystic Fibrosis, Tuberculosis, Pulmonary Embolism, Pulmonary Edema or Sleep Apnea GASTROINTESTINAL: Positive Gastrointestinal Disorders, Gastroesophageal Reflux Disease and Obesity; Negative Hepatitis, Cirrhosis, Pancreatitis, Celiac Disease, Gall Bladder Disease, Gastrointestinal Bleed, Esophageal Varices, Romero's Esophagus, Colitis, Ulcerative Colitis, Diverticulitis, Diverticulosis, Ulcer, Colorectal Cancer, Irritable Bowel, Crohn's Disease, Obstructive Bowel, Hiatal Hernia or Hemorrhoids GENITOURINARY: Positive Genitourinary Disorders, Chronic Kidney Disease and Renal Disease; Negative Kidney Stones, Polycystic Kidney Disease, Neurogenic Bladder, Inguinal Hernia, Dialysis or Benign Prostatic Hyperplasia REPRODUCTIVE: Positive Previous Pregnancies; Negative Breast Cancer, Endometriosis, Genital Herpes, Gonorrhea, Pelvic Inflammatory Disease, Syphilis or Uterine Prolapse MUSCULOSKELETAL: Positive Musculoskeletal Disorders and Arthritis; Negative Muscular Dystrophy, Myasthenia Gravis, Marfan's Syndrome, Bone Cancer, Rheumatoid Arthritis, Osteoporosis, Degenerative Disk Disease, Gout, Scoliosis, Carpal Tunnel Syndrome, Fibromyalgia, Fractures, Degenerative Joint Disease, Osteomyelitis or Poliovirus ENT: Negative History of ENT Problems, Cataracts, Glaucoma, Blind, Retinal Detachment, Macular Degeneration, Ear Infection, Deafness, Head Trauma or Eye Prosthesis ENDOCRINE: Positive Endocrine Disorders and Diabetes Mellitus Type 2; Negative Diabetes Mellitus Type 1, Hypoglycemia, [place]'s Syndrome, Burton's Disease, Hyperthyroidism, Hypothyroidism, Parathyroid Disease, Pituitary Disease, Systemic Lupus Erythematosus, Syndrome of Inappropriate Antidiuretic Hormone (SIADH), Adrenal Disease or Graves' Disease HEMATOLOGIC: Positive Blood Disorders and Anemia; Negative Sickle Cell Disease or Clotting Problems PSYCHO/SOCIAL: Positive Anxiety; Negative Psychiatric Problems, Schizophrenia, Recreational Drug Use, Bipolar Disorder, Depression, Behavior Problems, Self-Mutilation, Attention Deficit Disorder, Attention Deficit Hyperactivity Disorder, Depression, Post Traumatic Stress Disorder or Eating Disorder OTHER HISTORY: Positive Hospitalization, Blood Transfusions, Chicken Pox, Measles and Mumps; Negative Autoimmune Disease, Down Syndrome, Autism, Developmental Delay, Shingles, Falls, Blood Transfusion Reaction, Anesthesia Reactions, Organ Transplant, Chemotherapy, Radiation Therapy, Hyperbaric Therapy, MRSA, VRSA, Vancomycin-Resistant Enterococci, Human Immunodeficiency Virus (HIV), Rubella ([place] Measles), Pertussis, Clostridium Difficile, Cancer, Breast Cancer, Cervical Cancer, Colorectal Cancer, Lung Cancer or Ovarian Cancer Family History FAMILY HISTORY: Positive Family Respiratory Disorders, Family Cardiac Disorders and Family Cancer; Negative Family Psychiatric Problems, Family Gastrointestinal Problems, Family Surgery or Family Anesthesia Reaction Surgical History SURGICAL: Positive Angiogram, Abdominal Surgery, Joint Replacement and Hysterectomy; Negative Cardiac Surgery, Open Heart Surgery, Coronary Artery Bypass Graft, Valve Replacement, Vascular Surgery, Coronary Stent, Cardiac Catheterization, Pacemaker, Auto Implanted Cardiovert Defib, Carotid Endarterectomy, Endocrine Surgery, Thyroidectomy, Ear Surgery, Tympanostomy Tube, Eye Surgery, Nose Surgery, Oral Surgery, Tonsillectomy, Adenoidectomy, Cochlear Implant, Corneal Transplant, Throat Surgery, Tracheostomy, Gastric Bypass Surgery, Gastrostomy, Bowel Surgery, Nephrectomy, Amputation, Arthroscopy, Neurologic Surgery, Brain Shunt, Mastectomy, Lumpectomy, Tubal Ligation, Section or Organ Transplant Social History SMOKING STATUS: Never smoker SECOND HAND EXPOSURE: No SUBSTANCE USE: does not use Exam Vital Signs Temp Pulse Resp BP Pulse Ox O2 Del Method O2 Flow Rate 96.9 F 72 19 146/67 H 98 Room Air 1 09/01/24 04:00 09/01/24 04:00 09/01/24 04:00 09/01/24 04:00 09/01/24 04:00 09/01/24 04:00 09/01/24 04:00 Narrative Exam General: Elderly female, No acute respiratory distress but anxious HEENT: NCAT, No JVD noted. Mucosa moist. Pupils are equal and reactive to light bilaterally Cardiovascular: Normal S1 and S2. Regular rate and rhythm. Respiratory: Lungs are clear to auscultation bilaterally. No wheezing or crackles heard. Abdomen: Soft, nontender, not distended, normal bowel sounds. Skin: Warm to touch, dry, no rashes noted Musculoskeletal: No gross injuries. Able to move all 4 extremities. +1 edema Neuro: Alert and oriented x3. No focal neuro deficits. Psych: Normal affect and mood Results Labs 09/03/24 05:20 09/03/24 05:20 Labs: Short CBC 08/31/24 09/01/24 Range/Units 14:43 05:04 WBC 12.2 H 9.7 (3.6-11.0) Thou/mm3 Hgb 10.1 L 8.9 L (12.0-16.0) g/dL Hct 29.1 L 26.1 L (36.0-46.0) % Plt Count 249 226 (140-440) Thou/mm3 BMP 08/31/24 09/01/24 14:43 05:04 Sodium 132 L 137 Potassium 4.6 4.9 Chloride 100 103 Carbon Dioxide 26.0 28.7 BUN 43 H 47 H Creatinine 3.1 H 3.1 H Glucose 196 H D 109 H D Calcium 8.8 8.8 Cardiac Enzymes 08/31/24 Range/Units 14:43 Troponin I < 0.020 (0.0-0.045) ng/mL Liver Function 08/31/24 09/01/24 Range/Units 14:43 05:04 Total Bilirubin 0.4 0.3 (0.3-1.2) mg/dL Direct Bilirubin 0.1 (0.0-0.3) mg/dL AST 15 12 (0-34) U/L ALT 12 9 L (10-49) U/L Alkaline Phosphatase 142 H 110 D (46-116) U/L Albumin 4.0 3.5 D (3.4-4.8) gm/dL Quality Measures Quality Measures none Advance care planning discussed with:: patient Medications Home Medications and Allergies Home Medications ?Medication ?Instructions ?Recorded ?Confirmed ?Type loratadine 10 mg tablet 10 mg PO QDAY 04/22/21 08/31/24 History insulin degludec 200 unit/mL (3 45 unit subcut QDAY 08/12/21 08/31/24 History mL) subcutaneous pen (Tresiba FlexTouch U-200 insulin) atorvastatin 20 mg tablet 20 mg PO HS 03/11/22 08/31/24 History benzonatate 100 mg capsule 100 mg PO TID 03/11/22 08/31/24 History insulin aspart U-100 100 unit/mL 6 unit subcut TIDWM 03/11/22 08/31/24 History (3 mL) subcutaneous pen (Novolog FlexPen U-100 Insulin aspart) losartan 100 mg tablet 100 mg PO DAILY for BP 04/27/24 08/31/24 History sertraline 25 mg tablet 25 mg PO HS 04/28/24 08/31/24 History ondansetron HCl 8 mg tablet 8 mg PO Q8H 08/31/24 08/31/24 History Allergies Allergy/AdvReac Type Severity Reaction Status Date / Time amoxicillin Allergy Severe Vomiting Verified 09/01/24 08:23 codeine Allergy Severe PALPITATION Verified 09/01/24 08:23 S diazepam Allergy Severe RAPID Verified 09/01/24 08:23 HEARTRATE hydrocodone Allergy Severe Vomiting Verified 09/01/24 08:23 hydromorphone Allergy Severe Agitated Verified 09/01/24 08:23 ibuprofen Allergy Severe BLEEDING Verified 09/01/24 08:23 IN STOMACH PER PT meperidine Allergy Severe RAPID Verified 09/01/24 08:23 HEARTRATE morphine Allergy Severe RAPID Verified 09/01/24 08:23 HEARTRATE propoxyphene Allergy Severe RAPID Verified 09/01/24 08:23 HEARTRATE adhesive tape AdvReac Severe Hives Verified 08/31/24 14:49 levofloxacin AdvReac Severe VOMITS Verified 09/01/24 08:23 Visit Medications Acetaminophen (Acetaminophen 325 Mg Tablet) 650 mg PO Q6H PRN PRN Reason: PAIN OR FEVER > 101 Stop: 09/30/24 16:16 Last Admin: 09/01/24 02:32 Dose: 325 mg Atorvastatin Calcium (Atorvastatin Calcium 20 Mg Tablet) 20 mg PO HS ACE Stop: 09/30/24 20:59 Last Admin: 08/31/24 21:55 Dose: 20 mg Benzonatate (Benzonatate 100 Mg Capsule) 100 mg PO TID ACE; Protocol Stop: 10/01/24 07:59 Last Admin: 09/01/24 07:58 Dose: 100 mg Dextrose (Dextrose 50%-Water Inj 50 Ml Syringe) 25 ml IV Q15MIN PRN PRN Reason: BG 50-70 responsive npo pt Stop: 09/30/24 16:23 Dextrose (Dextrose 50%-Water Inj 50 Ml Syringe) 50 ml IV Q15MIN PRN PRN Reason: BG <50 OR BG <70 & pt unresponsive Stop: 09/30/24 16:23 Glucagon (Glucagon Inj 1 Mg Vial) 1 mg IM Q15MIN PRN PRN Reason: BG <70, and no IV access Hydralazine HCl (Hydralazine Inj 20 Mg/Ml Vial) 10 mg IVP Q6H PRN PRN Reason: hypertension Stop: 09/30/24 16:29 Insulin Glargine (Insulin Glargine (Lantus) 5 Unit/0.05 Ml (Per 5 Units)) 30 unit SC QDAY ACE Stop: 10/01/24 08:59 Last Admin: 09/01/24 07:58 Dose: Not Given Insulin Human Lispro (Insulin Lispro (Admelog) 1 Unit/0.01 Ml Unit) 0 unit SC Q6HR ACE; Protocol Stop: 09/30/24 17:59 Last Admin: 09/01/24 05:13 Dose: Not Given Loratadine (Loratadine 10 Mg Tablet) 10 mg PO QDAY ACE Stop: 10/01/24 08:59 Losartan Potassium (Losartan Potassium 25 Mg Tablet) 100 mg PO QDAY ACE Stop: 10/01/24 08:59 Non-Formulary Medication (Pentosan Polysulfate Sodium) 100 mg PO TID ACE Stop: 09/30/24 21:59 Last Admin: 09/01/24 05:13 Dose: Not Given Ondansetron HCl (Ondansetron Inj 2 Mg/Ml Inj 2 Ml) 4 mg IVP Q6H PRN; Protocol PRN Reason: NAUSEA OR VOMITING Stop: 09/30/24 16:16 Last Admin: 09/01/24 07:58 Dose: 4 mg Sertraline HCl (Sertraline Hcl 25 Mg Tablet) 25 mg PO HS [facility] Stop: 09/30/24 20:59 Last Admin: 08/31/24 21:00 Dose: Not Given Discontinued Medications Clonidine (Clonidine Hcl 0.1 Mg Tablet) 0.3 mg PO X1 ONE Stop: 08/31/24 14:29 Last Admin: 08/31/24 15:52 Dose: 0.3 mg Heparin Sodium (Porcine) (Heparin Sod Inj 5000 Unit/Ml Vial) 5,000 unit SC Q8HR ACE Stop: 09/14/24 21:59 Tuberculin PPD (Tuberculin Ppd Inj 5 Unit/0.1 Ml Dose) 5 unit ID X1 ONE Stop: 08/31/24 16:33 Last Admin: 08/31/24 22:03 Dose: 5 unit Assessment & Plan Plan Patient is an 83-year-old female with a past medical history of CKD stage IV, secondary to diabetic nephropathy, hypertension, interstitial cystitis, anemia, hyperlipidemia, anxiety and HFpEF, who was seen in the emergency room complaining of severe abdominal pain. The patient has poorly controlled hypertension, and has been having progressive worsening of her GFR for the past few months, currently dropping below 15, plan to start renal replacement therapy. The patient had multiple ER visits during past 3 days consecutively for review of symptoms including abdominal pain, headache and anxiety. In the ER, initial CT of the head was negative for acute hemorrhage, labs consistent with end-stage renal disease. The patient will be admitted to the hospital for management of end-stage renal disease, initiate hemodialysis. The patient will require SNF placement on discharge. 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 Patient will require outpatient hemodialysis chair and placement to prison. ? Viral markers ? PPD ? Patient n.p.o. at midnight ? IR tunneled dialysis cath ordered #Hypertensive urgency Systolic blood pressure in the 200s, on arrival, suspect noncompliance with medications, home medications include losartan 100 mg daily. In the ER patient was given clonidine 0.3 mg x 1, which made her sick to her stomach. Did help improve the blood pressure. ? Resume home dose of losartan 100 mg daily ? IV hydralazine as needed for hypertensive emergency #History of HFpEF #History of diabetes mellitus #History of hyperlipidemia #History of interstitial cystitis?chronic ? Management per primary team Plan of care discussed with filing or registry clerk Dr Alisha Shepherd PGY2 Attending Provider Attestation/Addendum Patient seen and examined with resident physician Dr. Shepherd. Note reviewed, agree with findings and recommendations. Patient with advanced diabetic nephropathy and significant proteinuria. GFR 15. Significant edema and multiple ER visits for uncontrolled hypertension. Decided to proceed with dialysis. Patient agreed and was sent from the office for direct admission yesterday. IJ catheter placed by Dr. Arriaga. Renal consultation requested for need for emergency dialysis. Patient currently seen on dialysis. Tolerating dialysis without any problems. Hemodialysis for 2 hours, 2K, ultrafiltration 1 L, Epogen 6000, no heparin ordered. Plan of care discussed with the dialysis nurse. Please see dialysis flowsheet for further details. Next dialysis scheduled for tomorrow. Plan of care discussed with primary team. Patient agreed to go to rehab. Daughter at bedside. Cannot care for herself. Thank you Jacinta for allowing me to participate in the care of Ms. Saldivar
[2024-09-01] MEDS: lorataDINE 10 MG TABLET PO (08:00)
[2024-09-01] MEDS: LOSARTAN POTASSIUM 25 MG TABLET 100 MG PO (08:00)
--- NOTE | 2024-09-01 08:20 | XR_ITS ---
Ultrasound-guided needle placement right internal jugular vein Permanent tunneled dialysis catheter insertion, percutaneous Fluoroscopy AP chest, portable, single view. Date and time of procedure: September 01, 2024 0958 hours INDICATIONS: Renal failure, need for stat and long-term dialysis Informed consent provided Technique: A timeout was completed verifying correct patient, procedure, site, positioning, and special equipment if applicable. The patient was placed in a dependent position appropriate for dialysis catheter placement based on the vein to be cannulated. The patient'sright neck was prepped and draped in sterile fashion. Maximum Sterile Barrier Technique used including cap, mask, sterile gown, sterile gloves, and sterile full body drape. If ultrasound technique used: sterile gel and sterile probe covers. Hand Hygiene performed using proper scrub, soap and water, or alcohol-based hand rub. 1% lidocaine was used to anesthetize the surrounding skin area [employer] portable ultrasound apparatus utilized to confirm patency of the right internal jugular vein Utilizing ultrasonographic guidance successful 21-gauge needle puncture right internal jugular vein Ultrasound images were recorded and stored. Vessel micropuncture was performed with 21-gauge needle. 0.18 wire guide is introduced into the vein. 0.18 wire is introduced into the vena cava under fluoroscopy. Subcutaneous tunnel formed in the upper chest. Permanent tunneled dialysis catheter placed in the subcutaneous tunnel. Dilators were introduced over the J-wire guide. Tunneled dialysis catheter is introduced through a dilator with venous sheath into the superior vena cava under fluoroscopic guidance. The catheter is sutured in place to the skin and a sterile dressing applied. Perfusion to the extremity distal to the point of catheter insertion is checked and found to be adequate Attending radiologist was present for the entire procedure Estimated blood loss5 cc. The patient tolerated the procedure well and there were no complications Impression: Successful ultrasound-guided needle placement right internal jugular vein Successful permanent tunneled dialysis catheter insertion, percutaneous Fluoroscopy 0.2 minute radiation dose 2.93 milligray 1 spot fluoroscopic chest film. AP chest performed at completion procedure demonstrates satisfactory position dialysis catheter. May use dialysis catheter.
--- NOTE | 2024-09-01 09:32 | ESPR_ITS ---
Documentation for date of: 09/01/24 Subjective Subjective Interval history: No acute events overnight. The patient remained hemodynamically stable. CBC showed resolved leukocytosis but a hemoglobin drop to 8.9 from yesterday. CMP was notable for chronic kidney disease with creatinine 3.5, BUN 47, and eGFR 15. Electrolyte imbalances consistent with CKD were also noted. Glucose is well- controlled on the current regimen; A1c is 7.8. A tunneled catheter was placed today under IR guidance, and the patient will begin inpatient hemodialysis. The plan was discussed with nephrology. The patient will need outpatient dialysis upon discharge, and social work has been notified to arrange a dialysis chair and follow-up appointment. Continue current management and address chronic conditions as needed. Exam Vital Signs Temp Pulse Resp BP Pulse Ox O2 Del Method O2 Flow Rate 97.4 F 67 18 171/82 H 97 Room Air 1 09/01/24 08:00 09/01/24 08:00 09/01/24 08:00 09/01/24 08:00 09/01/24 08:00 09/01/24 04:00 09/01/24 04:00 Narrative Exam General: Elderly female, No acute distress, cooperative, emotional sometimes HEENT: NCAT, No JVD noted. Mucosa moist. Pupils are equal and reactive to light bilaterally Cardiovascular: Normal S1 and S2. Regular rate and rhythm. Respiratory: Lungs are clear to auscultation bilaterally. No wheezing or crackles heard. Abdomen: Soft, nontender, not distended, normal bowel sounds. Skin: Warm to touch, dry, no rashes noted Musculoskeletal: No gross injuries. Able to move all 4 extremities. +1 edema Neuro: Alert and oriented x3. No focal neuro deficits. Psych: Normal affect and mood Objective Labs 09/01/24 05:04 09/01/24 05:04 Labs: Laboratory Results - last 24 hr 08/31/24 08/31/24 09/01/24 14:43 17:00 05:04 WBC 12.2 H 9.7 RBC 3.34 L 2.94 L Hgb 10.1 L 8.9 L Hct 29.1 L 26.1 L MCV 87 89 MCH 30.2 30.3 MCHC 34.7 34.1 RDW Std Deviation 41.3 41.1 Plt Count 249 226 Neut % (Auto) 71 58 Lymph % (Auto) 23 33 [place] % (Auto) 4 7 Eos % (Auto) 1 1 Baso % (Auto) 1 0 Neut # (Auto) 8.6 H 5.6 Lymph # (Auto) 2.8 3.2 [place] # (Auto) 0.5 0.7 Eos # (Auto) 0.1 0.1 Baso # (Auto) 0.1 0.0 Immature Gran # (Auto) 0.10 H 0.04 H Absolute Nucleated RBC 0.00 0.00 Immature Gran % 1 H 0 Nucleated RBC % 0 0 PT 11.2 11.5 INR 1.0 1.1 APTT 34.8 31.6 Sodium 132 L 137 Potassium 4.6 4.9 Chloride 100 103 Carbon Dioxide 26.0 28.7 Anion Gap 6 L 5 L BUN 43 H 47 H Creatinine 3.1 H 3.1 H Estim Creat Clear Calc 13.5 L 13.5 L eGFR 15 L 15 L BUN/Creatinine Ratio 14 15 Glucose 196 H D [address] Glu mg/dL 177 H Hemoglobin A1c 7.8 H Calculated Osmolality 280 287 Calcium 8.8 8.8 Corrected Calcium 8.8 9.2 Phosphorus 5.3 H Magnesium 2.5 2.8 H Total Bilirubin 0.4 0.3 Direct Bilirubin 0.1 AST 15 12 ALT 12 9 L Alkaline Phosphatase 142 H 110 D Troponin I < 0.020 B-Natriuretic Peptide 63 Total Protein 6.6 5.7 Albumin 4.0 3.5 D Globulin 2.6 2.2 L Albumin/Globulin Ratio 1.5 1.6 Triglycerides 163 H Cholesterol 145 LDL Cholesterol, Calc 68 HDL Cholesterol 44 Cholesterol/HDL Ratio 3.3 L TSH 1.66 Free T4 1.12 Hepatitis A IgM Ab Non Reactive Hep Bs Antigen Non Reactive Hep B Core IgM Ab Non Reactive Hepatitis C Antibody Non Reactive Blood Type O Positive Antibody Screen NEGATIVE Blood Bank Wristband ID Yes Quality Measures Quality Measures none Advance care planning discussed with:: patient Assessment & Plan Assessment Current Active Medications: Generic Name Dose Route Start Last Admin Trade Name Freq PRN Reason Stop Dose Admin Acetaminophen 650 mg 08/31/24 16:17 09/01/24 02:32 Acetaminophen 325 Mg Tablet PO 09/30/24 16:16 325 mg Q6H PRN Administration PAIN OR FEVER > 101 Atorvastatin Calcium 20 mg 08/31/24 21:00 08/31/24 21:55 Atorvastatin Calcium 20 Mg Tablet PO 09/30/24 20:59 20 mg HS ACE Administration Benzonatate 100 mg 09/01/24 08:00 09/01/24 07:58 Benzonatate 100 Mg Capsule PO 10/01/24 07:59 100 mg TID ACE Administration Protocol Dextrose 25 ml 08/31/24 16:24 Dextrose 50%-Water Inj 50 Ml Syringe IV 09/30/24 16:23 Q15MIN PRN BG 50-70 responsive npo pt Dextrose 50 ml 08/31/24 16:24 Dextrose 50%-Water Inj 50 Ml Syringe IV 09/30/24 16:23 Q15MIN PRN BG <50 OR BG <70 & pt unresponsive Glucagon 1 mg 08/31/24 16:24 Glucagon Inj 1 Mg Vial IM Q15MIN PRN BG <70, and no IV access Hydralazine HCl 10 mg 08/31/24 16:27 Hydralazine Inj 20 Mg/Ml Vial IVP 09/30/24 16:29 Q6H PRN hypertension Insulin Glargine 30 unit 09/01/24 09:00 09/01/24 07:58 Insulin Glargine (Lantus) 5 Unit/0.05 Ml (Per 5 Units) SC 10/01/24 08:59 Not Given QDAY [facility] Insulin Human Lispro 0 unit 08/31/24 18:00 09/01/24 05:13 Insulin Lispro (Admelog) 1 Unit/0.01 Ml Unit SC 09/30/24 17:59 Not Given Q6HR [facility] Protocol Loratadine 10 mg 09/01/24 09:00 09/01/24 08:00 Loratadine 10 Mg Tablet PO 10/01/24 08:59 10 mg QDAY ACE Administration Losartan Potassium 100 mg 09/01/24 09:00 09/01/24 08:00 Losartan Potassium 25 Mg Tablet PO 10/01/24 08:59 100 mg QDAY ACE Administration Non-Formulary Medication 100 mg 08/31/24 22:00 09/01/24 05:13 Pentosan Polysulfate Sodium PO 09/30/24 21:59 Not Given TID ACE Ondansetron HCl 4 mg 08/31/24 16:17 09/01/24 07:58 Ondansetron Inj 2 Mg/Ml Inj 2 Ml IVP 09/30/24 16:16 4 mg Q6H PRN Administration NAUSEA OR VOMITING Protocol Sertraline HCl 25 mg 08/31/24 21:00 08/31/24 21:00 Sertraline Hcl 25 Mg Tablet PO 09/30/24 20:59 Not Given HS ACE Plan Alberta Saldivar is 83 yr female with PMH of primary hypertension insulin-dependent diabetes mellitus type 2, CKD stage IV [baseline CR 2.7] follows up with Dr. Brito, chronic interstitial cystitis, chronic normocytic anemia, hyperlipidemia, anxiety and heart failure with preserved ejection fraction [EF 60 to 65%] presenting to ED on 08/31/[address] Brito. Patient to be admitted for catheter insertion and starting dialysis. 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 Electrolytes otherwise unremarkable. She has been following with Dr. Brito since past 4 years. Likely renal disease in setting of diabetes and poorly controlled hypertension. She is unable to communicate properly quantity of urine output. ? Nephrology Dr Brito consulted - Admitting patient for starting hemodialysis ? Hepatitis panel pending ? PPD test pending ? IR tunneled dialysis cath ordered -Renally dose medications #Hypertensive urgency #Primary hypertension #Hyperlipidemia BP 190/91, heart rate 85. Patient was endorsing headache. Is on losartan 100 mg daily. Compliant with medications and checks her blood pressure every day ranging 128-140 systolic. ? Resume home antihypertensive ?IV hydralazine 10 mg q6hr PRN for SBP>170, DBP >110, hold if HR >90 -montior BP - Resumed atorvastatin 20 mg daily #Interstitial cystitis Experiences frequent UTIs and frequent use of antibiotics. Currently on medication Elmiron for painful bladder. ? Continue to monitor ? Urine culture pending ? Follow-up outpatient #Heart failure with preserved ejection fraction [EF 60 to 65%] Patient currently denies any symptoms of SOB, PND, orthopnea and chest pain. NYHA class III Home medication Lasix 40 Mg p.o. daily. #Insulin-dependent type 2 diabetes mellitus-poorly controlled Glucose on admission 196. Last A1c 8.5 on 04/28/24. Patient takes 50 units degludac daily and 10units lispro TID for diabetes at home. -Held home medications -Bedside blood glucose checks ACHS -luntus 30 qday -Insulin lispro sliding scale -Carb consistent low diet #Anxiety #Depression Resumed home meds sertraline 25 mg daily Health maintenance: Dispo: tele, CKD stage V progressing to ESRD FEN: renal, low carb DVT prophylaxis: Subcu heparin CODE STATUS: Full code Patient care was discussed with attending physician Dr. Zara Hurst MD PGY-2 I have carefully reviewed this document. Due to imperfections in the voice software, there could be grammatical errors including phonetic/typographic errors. This in no way compromises the medical care the patient is receiving Attending Provider Attestation/Addendum I attest that I was physically present for the evaluation, physical examination, lab and imaging review of the patient with the residents. I discussed the case with the residents and agree with the findings and plans of care as documented above. At bedside, patient appears comfortable. Vitals are stable except for high blood pressure. Resumed her home losartan, we will monitor her blood pressure closely. BUN/creatinine is 47/3.1 today. A1c is 7.8. Underwent hemodialysis catheter placement with IR today. Plan for hemodialysis with nephrology. Nephrology following closely, appreciate recommendations. Jacinta Zuñiga MD
[2024-09-01] MEDS: HEPARIN SOD LOCK SYR 100 UNIT/ML 500 UNIT STFIELD (10:30)
[2024-09-01] MEDS: fentaNYL CIT INJ 50 mCg/ML AMP 2ML IVP (10:30)
[2024-09-01] MEDS: LIDOCAINE INJ PF 1% 30 ML VIAL 10 ML INFL (10:34)
[2024-09-01] MEDS: fentaNYL CIT INJ 50 mCg/ML AMP 2ML 25 MCG IVP (10:39)
[2024-09-01] MEDS: HEPARIN SOD INJ 1000 UNIT/ML VIAL 3800 UNIT INDWELLCAT (11:06)
--- NOTE | 2024-09-01 11:10 | PC.NURSE ---
1110 patient is awake, alert, breathing unlabored, s/p perm cath insertion to right IJ, tolerated procedure well, report given to Grace LIRA, patient transferred back to room [id number]
[2024-09-01] MEDS: hydrALAZINE INJ 20 MG/ML VIAL 10 MG IVP (11:58)
[2024-09-01] MEDS: EPOETIN ALFA-EPBX INJ 10,000 UNIT/ML VIAL (ESRD) 10000 UNIT SC (14:30)
--- NOTE | 2024-09-01 15:58 | PC.SS ---
SS utilized [facility] Fax to send over appropriate documentation to [facility] for a new chair time.
--- NOTE | 2024-09-01 16:06 | PC.SS ---
Patient was currently in IR for perm cath. SS spoke to daughter, Amanda who was at bedside. Patient is independent. Patient will be new on hemodialysis. Amanda states patient lives alone. She only uses a walker at home. Patient will be starting new dialysis with Dr. Brito. Documentation was sent over to dialysis center for review. TB was taken. Poss chair time on Wednesday. Family prefers patient to d/c to SNF. Preference is [facility]. SNF referrals were sent out. PASRR completed. Patient is a level 2 for hx: depression and anxiety. Patient does not have a vehicle but family transports to appointments. PCP: Dr. Herrera with [facility]. Discussion was held with patient's daughter, Amanda re: alt medical decision maker. Amanda states there's a little conflict between her and her other sister, Stacie. SS stated once patient is back in room and alert. We will need to discuss with her who is the alt medical decision maker.
[2024-09-01] MEDS: SERTRALINE HCL 25 MG TABLET PO (21:27)
[2024-09-01] MEDS: ATORVASTATIN CALCIUM 20 MG TABLET PO (21:27)
[2024-09-02] VITALS (24 sets, daily range): BP systolic 133–192; BP diastolic 68–108; PULSE 61–98; RESP 14–92; TEMP 36.1–36.7; O2SAT 91–99
[2024-09-02] MEDS: MG HYD/AL HYD/SIME (Maalox Reg) SUSP 30 ML UDC PO ×2 (01:02→12:44)
[2024-09-02] MEDS: ACETAMINOPHEN 325 MG TABLET 650 MG PO ×3 (01:02→19:57)
[2024-09-02] MEDS: ONDANSETRON INJ 2 MG/ML INJ 2 ML 4 MG IVP (02:14)
--- NOTE | 2024-09-02 02:21 | PC.NURSE ---
accessed pt's chart to assist main RN.
[2024-09-02 06:22] LABS: Basophils % (Auto) 0 % (0-2.5); Eosinophils % (Auto) 0 % (0-10); Hematocrit 28.7 % (36.0-46.0); Hemoglobin 9.9 g/dL (12.0-16.0); Immature Granulocytes % (Auto) 1 % (0-0); Immature Granulocytes Auto 0.09 Thou/mm3 (0.00-0.00); Lymphocytes # (Auto) 1.7 Thou/mm3 (1.0-4.8); Lymphocytes % (Auto) 15 % (10-50); Mean Corpuscular HGB Conc 34.5 g/dl (31.0-37.0); Mean Corpuscular Hemoglobin 30.3 pg (25.0-35.0); Mean Corpuscular Volume 88 fL (80-100); Monocytes # (Auto) 0.6 Thou/mm3 (0.0-0.8); Monocytes % (Auto) 5 % (0-12); Neutrophils # (Auto) 9.2 Thou/mm3 (1.8-7.7); Neutrophils % (Auto) 79 % (37-80); Nucleated Red Blood Cell % 0 /100 WBC (0); Platelet Count 243 Thou/mm3 (140-440); RDW Standard Deviation 41.3 fL (36.4-46.3); Red Blood Count 3.27 Miln/mm3 (4.00-5.20); White Blood Count 11.6 Thou/mm3 (3.6-11.0)
[2024-09-02 07:06] LABS: Alanine Aminotransferase 10 U/L (10-49); Albumin, Serum 3.6 gm/dL (3.4-4.8); Albumin/Globulin Ratio 1.6 (1.2-2.2); Alkaline Phosphatase 114 U/L (46-116); Anion Gap 10 (7-16); Aspartate Amino Transferase 15 U/L (0-34); BUN/Creatinine Ratio 11 Ratio (12-20); Bilirubin,Total 0.3 mg/dL (0.3-1.2); Blood Urea Nitrogen 27 mg/dL (9-23); Calcium 8.6 mg/dL (8.3-10.6); Calcium (Corrected) 8.9 mg/dL (8.5-10.1); Chloride 100 mMol/L (98-107); Creatinine (Component) 2.5 mg/dL (0.6-1.3); Estimated Creatinine Clearance 16.8 mL/min (>60); Globulin 2.3 gm/dL (2.3-3.5); Glucose 125 mg/dL (74-106); Magnesium 2.6 mg/dL (1.6-2.6); Osmolality,Calculated 285 (275-295); Phosphorous 4.4 mg/dL (2.4-5.1); Potassium 4.3 mMol/L (3.4-5.1); Sodium 140 mMol/L (136-145); Total Protein 5.9 gm/dL (5.7-8.2); eGFR 19 See Note
--- NOTE | 2024-09-02 08:07 | PC.NURSE ---
Notified dr Sharma of pts current bp this morning 169/77-82. per md continue with morning bp med on board.
[2024-09-02] MEDS: lorataDINE 10 MG TABLET PO (08:39)
[2024-09-02] MEDS: INSULIN GLARGINE (Lantus) 5 UNIT/0.05 ML (PER 5 UNITS) 30 UNIT SC (08:39)
[2024-09-02] MEDS: LOSARTAN POTASSIUM 25 MG TABLET 100 MG PO (08:39)
--- NOTE | 2024-09-02 09:42 | ESPR_ITS ---
Documentation for date of: 09/02/24 Subjective Subjective Interval history: Ms. Saldivar is an 83-year-old female with a past medical history of CKD stage IV, secondary to diabetic nephropathy, hypertension, interstitial cystitis, anemia, hyperlipidemia, anxiety and HFpEF, who was seen in the emergency room complaining of severe abdominal pain. The patient has poorly controlled hypertension, and has been having progressive worsening of her GFR for the past few months, currently dropping below 15, plan to start renal replacement therapy. The patient had multiple ER visits during past 3 days consecutively for review of symptoms including abdominal pain, headache and anxiety. In the ER, patient was noted to have hypertensive urgency,patient was given clonidine 0.3 mg x 1, which made her sick to her stomach. Did help improve the blood pressure.initial CT of the head was negative for acute hemorrhage, labs consistent with end-stage renal disease. Also noted hypertensive the patient will be admitted to the hospital for management of end-stage renal disease, initiate hemodialysis. The patient will require SNF placement on discharge. 09/02/2024, patient evaluated at bedside today, reported having 5-6 episodes of vomiting after meals, vomitus contained food contents, denied hematemesis or melena. Reporting some lower abdominal discomfort in the suprapubic region. Patient denied having any nausea at the moment. Denied chest pain or shortness of breath. Patient received dialysis catheter yesterday, hemodialysis ordered for 2 PM. Labs show sodium 140 potassium 4.3, BUN 27 creatinine 2.5. Exam Vital Signs Temp Pulse Resp BP Pulse Ox O2 Del Method O2 Flow Rate 97.5 F 82 14 167/71 H 95 Room Air 1 09/02/24 08:00 09/02/24 08:39 09/02/24 08:00 09/02/24 08:39 09/02/24 08:00 09/02/24 08:00 09/01/24 15:39 Narrative Exam General: Elderly female, in no acute discomfort HEENT: NCAT, No JVD noted. Mucosa moist. Pupils are equal and reactive to light bilaterally Cardiovascular: Normal S1 and S2. Regular rate and rhythm. Respiratory: Lungs are clear to auscultation bilaterally. No wheezing or crackles heard. Abdomen: Soft, mildly tender at suprapubic region, not distended, normal bowel sounds. Skin: Warm to touch, dry, no rashes noted Musculoskeletal: No gross injuries. Able to move all 4 extremities. +1 edema Neuro: Alert and oriented x3. No focal neuro deficits. Psych: Normal affect and mood Objective Labs 09/03/24 05:20 09/03/24 05:20 Labs: Laboratory Results - last 24 hr 09/02/24 05:25 WBC 11.6 H RBC 3.27 L Hgb 9.9 L Hct 28.7 L MCV 88 MCH 30.3 MCHC 34.5 RDW Std Deviation 41.3 Plt Count 243 Neut % (Auto) 79 Lymph % (Auto) 15 [place] % (Auto) 5 Eos % (Auto) 0 Baso % (Auto) 0 Neut # (Auto) 9.2 H Lymph # (Auto) 1.7 [place] # (Auto) 0.6 Eos # (Auto) 0.0 Baso # (Auto) 0.0 Immature Gran # (Auto) 0.09 H Absolute Nucleated RBC 0.00 Immature Gran % 1 H Nucleated RBC % 0 Sodium 140 Potassium 4.3 D Chloride 100 Carbon Dioxide 30.0 Anion Gap 10 BUN 27 H Creatinine 2.5 H D Estim Creat Clear Calc 16.8 L eGFR 19 L BUN/Creatinine Ratio 11 L Glucose 125 H Calculated Osmolality 285 Calcium 8.6 Corrected Calcium 8.9 Phosphorus 4.4 Magnesium 2.6 Total Bilirubin 0.3 AST 15 ALT 10 Alkaline Phosphatase 114 Total Protein 5.9 Albumin 3.6 Globulin 2.3 Albumin/Globulin Ratio 1.6 Quality Measures Quality Measures none Advance care planning discussed with:: patient Assessment & Plan Assessment Current Active Medications: Generic Name Dose Route Start Last Admin Trade Name Freq PRN Reason Stop Dose Admin Acetaminophen 650 mg 09/01/24 21:03 09/02/24 01:02 Acetaminophen 325 Mg Tablet PO 09/30/24 16:16 650 mg Q6H PRN Administration PAIN 1-3 OR FEVER > 101 Al Hydrox/Mg Hydrox/Simethicone 30 ml 09/02/24 00:11 09/02/24 01:02 Mg Hyd/Al Hyd/Arya (Maalox Reg) Susp 30 Ml Udc PO 10/02/24 00:10 30 ml Q4HR PRN Administration UPSET STOMACH/INDIGESTION Atorvastatin Calcium 20 mg 08/31/24 21:00 09/01/24 21:27 Atorvastatin Calcium 20 Mg Tablet PO 09/30/24 20:59 20 mg HS ACE Administration Benzonatate 100 mg 06/20/25 08:00 09/02/24 05:34 Benzonatate 100 Mg Capsule PO 10/01/24 07:59 Not Given TID [facility] Protocol Dextrose 25 ml 08/31/24 16:24 Dextrose 50%-Water Inj 50 Ml Syringe IV 09/30/24 16:23 Q15MIN PRN BG 50-70 responsive npo pt Dextrose 50 ml 08/31/24 16:24 Dextrose 50%-Water Inj 50 Ml Syringe IV 09/30/24 16:23 Q15MIN PRN BG <50 OR BG <70 & pt unresponsive Glucagon 1 mg 08/31/24 16:24 Glucagon Inj 1 Mg Vial IM Q15MIN PRN BG <70, and no IV access Heparin Sodium (Porcine) 3,800 unit 09/01/24 15:27 Heparin Sod Inj 1000 Unit/Ml Vial 10 Ml INDWELLCAT 09/15/24 15:26 X1 PRN DIALYSIS Hydralazine HCl 10 mg 08/31/24 16:27 09/01/24 11:58 Hydralazine Inj 20 Mg/Ml Vial IVP 09/30/24 16:29 10 mg Q6H PRN Administration hypertension Hydromorphone HCl 0.25 mg 09/01/24 20:58 Hydromorphone Inj 2 Mg/Ml Vial IVP 09/06/24 20:57 Q6HR PRN Pain 7-10 Insulin Glargine 30 unit 09/01/24 09:00 09/02/24 08:39 Insulin Glargine (Lantus) 5 Unit/0.05 Ml (Per 5 Units) SC 10/01/24 08:59 30 unit QDAY ACE Administration Insulin Human Lispro 0 unit 09/01/24 17:00 09/02/24 08:01 Insulin Lispro (Admelog) 1 Unit/0.01 Ml Unit SC 10/01/24 16:59 Not Given ACHS [facility] Protocol Loratadine 10 mg 09/01/24 09:00 09/02/24 08:39 Loratadine 10 Mg Tablet PO 10/01/24 08:59 10 mg QDAY ACE Administration Losartan Potassium 100 mg 09/01/24 09:00 09/02/24 08:39 Losartan Potassium 25 Mg Tablet PO 10/01/24 08:59 100 mg QDAY ACE Administration Non-Formulary Medication 100 mg 08/31/24 22:00 09/02/24 05:34 Pentosan Polysulfate Sodium PO 09/30/24 21:59 Not Given TID ACE Ondansetron HCl 4 mg 08/31/24 16:17 09/02/24 02:14 Ondansetron Inj 2 Mg/Ml Inj 2 Ml IVP 09/30/24 16:16 4 mg Q6H PRN Administration NAUSEA OR VOMITING Protocol Sertraline HCl 25 mg 08/31/24 21:00 09/01/24 21:27 Sertraline Hcl 25 Mg Tablet PO 09/30/24 20:59 25 mg HS ACE Administration Plan Patient is an 83-year-old female with a past medical history of CKD stage IV, secondary to diabetic nephropathy, hypertension, interstitial cystitis, anemia, hyperlipidemia, anxiety and HFpEF, who was seen in the emergency room complaining of severe abdominal pain. The patient has poorly controlled hypertension, and has been having progressive worsening of her GFR for the past few months, currently dropping below 15, plan to start renal replacement therapy. The patient had multiple ER visits during past 3 days consecutively for review of symptoms including abdominal pain, headache and anxiety. In the ER, initial CT of the head was negative for acute hemorrhage, labs consistent with end-stage renal disease. The patient will be admitted to the hospital for management of end-stage renal disease, initiate hemodialysis. The patient will require SNF placement on discharge. 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 Patient will require outpatient hemodialysis chair and placement to [facility]. ? Viral markers ? PPD ? received hemodialysis catheter, will initiate hemodialysis in the afternoon. #Hypertensive urgency Systolic blood pressure in the 200s, on arrival, suspect noncompliance with medications, home medications include losartan 100 mg daily. In the ER patient was given clonidine 0.3 mg x 1, which made her sick to her stomach. Did help improve the blood pressure. ? Resume home dose of losartan 100 mg daily ? IV hydralazine as needed for hypertensive emergency #History of HFpEF #History of diabetes mellitus #History of hyperlipidemia #History of interstitial cystitis?chronic ? Management per primary team Plan of care discussed with insurance actuary Dr Alisha Shepherd PGY2 Attending Provider Attestation/Addendum Patient seen and examined with resident physician Dr. Shepherd. Note reviewed, agree with findings and recommendations. Patient with advanced diabetic nephropathy and significant proteinuria. GFR 15. Significant edema and multiple ER visits for uncontrolled hypertension. Decided to proceed with dialysis. Patient agreed and was sent from the office for direct admission yesterday. IJ catheter placed by Dr. Arriaga. Renal consultation requested for need for emergency dialysis. Patient currently seen on dialysis. Tolerating dialysis without any problems. Hemodialysis for 2.5 hours, 2K, ultrafiltration 1 L, Epogen 6000, no heparin ordered. Plan of care discussed with the dialysis nurse. Please see dialysis flowsheet for further details. Next dialysis scheduled for Wednesday. Plan of care discussed with primary team. Patient needs outpatient dialysis arrangements. Hep panel, PPD pending. Patient agreed to go to rehab. Daughter at bedside. Cannot care for herself. Thank you Jacinta for allowing me to participate in the care of Ms. Saldivar
[2024-09-02] MEDS: INSULIN LISPRO (AdmeLOG) 1 UNIT/0.01 ML UNIT SC (11:42)
--- NOTE | 2024-09-02 12:27 | PC.NURSE ---
Rapid response called at 1227 per pts complains of feeling like im going to pass out and tingling to face. Pt on the bed verbal aaox4.
[2024-09-02] MEDS: LABETALOL INJ 5 MG/ML VIAL 20 ML 10 MG IVP (12:46)
[2024-09-02] MEDS: BENZONATATE 100 MG CAPSULE PO ×2 (13:55→21:06)
--- NOTE | 2024-09-02 15:16 | ESPR_ITS ---
Documentation for date of: 09/02/24 Subjective Subjective Interval history: Patient examined at bedside. No events overnight, complains that she is had multiple episodes of vomiting however per nursing patient has had none. Reliability of her history is uncertain. Blood sugar stable, BP slightly elevated 158/75. Hb uptrended 9.9, Cr 2.5, GFR 19. She tolerated dialysis well yesterday. Next session planned for 3pm this afternoon. Urine culture is penidng. Plan for dc to SNF and needed HD sessions inpatient. RR today in early afternoon due to severe abdominal pain, nausea, and vomiting. Bedside evaluation appeared that patient was comfortable, benign exam, tolerated her breakfast. She was given Maaolx and Tylenol which she tolerated. BP slightly elevated 180 systolic and got IV labetolol 10mg x1. She appeared comfortable and was making jokes at by the end of the rapid. Exam Vital Signs Temp Pulse Resp BP Pulse Ox O2 Del Method O2 Flow Rate 97.8 F 88 16 150/68 H 96 Room Air 1 09/02/24 12:56 09/02/24 12:56 09/02/24 12:56 09/02/24 12:56 09/02/24 12:56 09/02/24 12:56 09/02/24 12:56 Narrative Exam General: Elderly female, No acute respiratory distress but anxious HEENT: NCAT, No JVD noted. Mucosa moist. Pupils are equal and reactive to light bilaterally Cardiovascular: Normal S1 and S2. Regular rate and rhythm. Respiratory: Lungs are clear to auscultation bilaterally. No wheezing or crackles heard. Abdomen: Soft, nontender, not distended, normal bowel sounds. Skin: Warm to touch, dry, no rashes noted, right TDC Musculoskeletal: No gross injuries. Able to move all 4 extremities. +1 edema Neuro: Alert and oriented x3. No focal neuro deficits. Psych: rapid changes in mood Objective Labs 09/02/24 05:25 09/02/24 05:25 Labs: Laboratory Results - last 24 hr 09/02/24 05:25 WBC 11.6 H RBC 3.27 L Hgb 9.9 L Hct 28.7 L MCV 88 MCH 30.3 MCHC 34.5 RDW Std Deviation 41.3 Plt Count 243 Neut % (Auto) 79 Lymph % (Auto) 15 [place] % (Auto) 5 Eos % (Auto) 0 Baso % (Auto) 0 Neut # (Auto) 9.2 H Lymph # (Auto) 1.7 [place] # (Auto) 0.6 Eos # (Auto) 0.0 Baso # (Auto) 0.0 Immature Gran # (Auto) 0.09 H Absolute Nucleated RBC 0.00 Immature Gran % 1 H Nucleated RBC % 0 Sodium 140 Potassium 4.3 D Chloride 100 Carbon Dioxide 30.0 Anion Gap 10 BUN 27 H Creatinine 2.5 H D Estim Creat Clear Calc 16.8 L eGFR 19 L BUN/Creatinine Ratio 11 L Glucose 125 H Calculated Osmolality 285 Calcium 8.6 Corrected Calcium 8.9 Phosphorus 4.4 Magnesium 2.6 Total Bilirubin 0.3 AST 15 ALT 10 Alkaline Phosphatase 114 Total Protein 5.9 Albumin 3.6 Globulin 2.3 Albumin/Globulin Ratio 1.6 Quality Measures Quality Measures none Advance care planning discussed with:: patient Assessment & Plan Assessment Current Active Medications: Generic Name Dose Route Start Last Admin Trade Name Freq PRN Reason Stop Dose Admin Acetaminophen 650 mg 09/01/24 21:03 09/02/24 12:51 Acetaminophen 325 Mg Tablet PO 09/30/24 16:16 650 mg Q6H PRN Administration PAIN 1-3 OR FEVER > 101 Al Hydrox/Mg Hydrox/Simethicone 30 ml 09/02/24 00:11 09/02/24 12:44 Mg Hyd/Al Hyd/Arya (Maalox Reg) Susp 30 Ml Udc PO 10/02/24 00:10 30 ml Q4HR PRN Administration UPSET STOMACH/INDIGESTION Atorvastatin Calcium 20 mg 08/31/24 21:00 09/01/24 21:27 Atorvastatin Calcium 20 Mg Tablet PO 09/30/24 20:59 20 mg HS ACE Administration Benzonatate 100 mg 09/01/24 08:00 09/02/24 13:55 Benzonatate 100 Mg Capsule PO 10/01/24 07:59 100 mg TID ACE Administration Protocol Dextrose 25 ml 08/31/24 16:24 Dextrose 50%-Water Inj 50 Ml Syringe IV 09/30/24 16:23 Q15MIN PRN BG 50-70 responsive npo pt Dextrose 50 ml 08/31/24 16:24 Dextrose 50%-Water Inj 50 Ml Syringe IV 09/30/24 16:23 Q15MIN PRN BG <50 OR BG <70 & pt unresponsive Glucagon 1 mg 08/31/24 16:24 Glucagon Inj 1 Mg Vial IM Q15MIN PRN BG <70, and no IV access Heparin Sodium (Porcine) 3,800 unit 09/01/24 15:27 Heparin Sod Inj 1000 Unit/Ml Vial 10 Ml INDWELLCAT 09/15/24 15:26 X1 PRN DIALYSIS Hydralazine HCl 10 mg 08/31/24 16:27 09/01/24 11:58 Hydralazine Inj 20 Mg/Ml Vial IVP 09/30/24 16:29 10 mg Q6H PRN Administration hypertension Hydromorphone HCl 0.25 mg 09/01/24 20:58 Hydromorphone Inj 2 Mg/Ml Vial IVP 09/06/24 20:57 Q6HR PRN Pain 7-10 Insulin Glargine 30 unit 09/01/24 09:00 09/02/24 08:39 Insulin Glargine (Lantus) 5 Unit/0.05 Ml (Per 5 Units) SC 10/01/24 08:59 30 unit QDAY ACE Administration Insulin Human Lispro 0 unit 09/01/24 17:00 09/02/24 11:42 Insulin Lispro (Admelog) 1 Unit/0.01 Ml Unit SC 10/01/24 16:59 4 unit ACHS ACE Administration Protocol Loratadine 10 mg 09/01/24 09:00 09/02/24 08:39 Loratadine 10 Mg Tablet PO 10/01/24 08:59 10 mg QDAY ACE Administration Losartan Potassium 100 mg 09/01/24 09:00 09/02/24 08:39 Losartan Potassium 25 Mg Tablet PO 10/01/24 08:59 100 mg QDAY ACE Administration Metoclopramide HCl 10 mg 09/02/24 12:37 Metoclopramide Inj 5 Mg/Ml Vial 2 Ml IVP 10/02/24 12:36 Q6HR PRN NAUSEA OR VOMITING Protocol Non-Formulary Medication 100 mg 08/31/24 22:00 09/02/24 05:34 Pentosan Polysulfate Sodium PO 09/30/24 21:59 Not Given TID ACE Sertraline HCl 25 mg 08/31/24 21:00 09/01/24 21:27 Sertraline Hcl 25 Mg Tablet PO 09/30/24 20:59 25 mg HS ACE Administration Plan Alberta Saldivar is 83 yr female with PMH of primary hypertension insulin-dependent diabetes mellitus type 2, CKD stage IV [baseline CR 2.7] follows up with Dr. Brito, chronic interstitial cystitis, chronic normocytic anemia, hyperlipidemia, anxiety and heart failure with preserved ejection fraction [EF 60 to 65%] presenting to ED on 08/31/[address] Brito. Patient to be admitted for catheter insertion and starting dialysis. 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 Electrolytes otherwise unremarkable. She has been following with Dr. Brito since past 4 years. Likely renal disease in setting of diabetes and poorly controlled hypertension. She is unable to communicate properly quantity of urine output. Hepatitis panel negative ? Nephrology Dr Brito consulted - had TDC placed -continue HD sessions in patient per nephrology -Renally dose medications #Primary hypertension #Hyperlipidemia BP 190/91, heart rate 85. Patient was endorsing headache. Is on losartan 100 mg daily. Compliant with medications and checks her blood pressure every day ranging 128-140 systolic. ? Resume home antihypertensive ?IV hydralazine 10 mg q6hr PRN for SBP>170, DBP >110, hold if HR >90 -montior BP - Resumed atorvastatin 20 mg daily #Interstitial cystitis Experiences frequent UTIs and frequent use of antibiotics. Currently on medication Elmiron for painful bladder. ? Continue to monitor ? Urine culture pending ? Follow-up outpatient #Heart failure with preserved ejection fraction [EF 60 to 65%] Patient currently denies any symptoms of SOB, PND, orthopnea and chest pain. NYHA class III Home medication Lasix 40 Mg p.o. daily. #Insulin-dependent type 2 diabetes mellitus-poorly controlled Glucose on admission 196. Last A1c 8.5 on 04/28/24. Patient takes 50 units degludac daily and 10units lispro TID for diabetes at home. -Held home medications -Bedside blood glucose checks ACHS -luntus 30 qday -Insulin lispro sliding scale -Carb consistent low diet #Anxiety #Depression Resumed home meds sertraline 25 mg daily #Hypertensive urgency-resolved Health maintenance: Dispo: tele, ESRD on new HD. DC to SNF FEN: renal, low carb DVT prophylaxis: Subcu heparin CODE STATUS: Full code Patient care was discussed with attending physician Dr. Zara Steinbergn PGY1 Attending Provider Attestation/Addendum I attest that I was physically present for the evaluation, physical examination, lab and imaging review of the patient with the residents. I discussed the case with the residents and agree with the findings and plans of care as documented above. At bedside this morning, patient complained of mild nausea. Her abdominal pain has improved. Noted to have slightly elevated blood pressure at 158/75. Underwent hemodialysis yesterday with improvement in her kidney function. Patient will go for another hemodialysis session today. Had a rapid response this afternoon due to abdominal pain, nausea and vomiting. Improved after metoclopramide, Maalox and Tylenol. Also received labetalol 10 mg for elevated blood pressure. We will add hydralazine p.o. along with losartan. Continues to be on insulin regimen for diabetes. Nephrology following, appreciate recommendations. Jacinta Zuñiga MD
--- NOTE | 2024-09-02 17:39 | PC.NURSE ---
Pt transferred to dialysis via hospital bed by [place] [facility]. Pt stable aaox4.
[2024-09-02] MEDS: HEPARIN SOD INJ 1000 UNIT/ML VIAL 10 ML 3800 UNIT INDWELLCAT (19:42)
[2024-09-02] MEDS: ATORVASTATIN CALCIUM 20 MG TABLET PO (21:06)
[2024-09-02] MEDS: SERTRALINE HCL 25 MG TABLET PO (21:06)
[2024-09-03] VITALS (15 sets, daily range): BP systolic 121–193; BP diastolic 71–115; PULSE 77–94; RESP 13–17; TEMP 36.1–36.6; O2SAT 92–98
[2024-09-03] MEDS: ACETAMINOPHEN 325 MG TABLET 650 MG PO ×2 (05:07→19:11)
[2024-09-03] MEDS: BENZONATATE 100 MG CAPSULE PO ×3 (05:07→21:10)
[2024-09-03 06:02] LABS: Basophils # (Auto) 0.1 Thou/mm3 (0.0-0.2); Basophils % (Auto) 1 % (0-2.5); Eosinophils # (Auto) 0.1 Thou/mm3 (0.0-0.5); Eosinophils % (Auto) 1 % (0-10); Hemoglobin 9.3 g/dL (12.0-16.0); Immature Granulocytes % (Auto) 1 % (0-0); Immature Granulocytes Auto 0.11 Thou/mm3 (0.00-0.00); Lymphocytes # (Auto) 3.7 Thou/mm3 (1.0-4.8); Lymphocytes % (Auto) 34 % (10-50); Mean Corpuscular HGB Conc 33.2 g/dl (31.0-37.0); Mean Corpuscular Hemoglobin 30.2 pg (25.0-35.0); Mean Corpuscular Volume 91 fL (80-100); Monocytes # (Auto) 0.8 Thou/mm3 (0.0-0.8); Monocytes % (Auto) 7 % (0-12); Neutrophils # (Auto) 6.1 Thou/mm3 (1.8-7.7); Neutrophils % (Auto) 56 % (37-80); Nucleated Red Blood Cell % 0 /100 WBC (0); Platelet Count 239 Thou/mm3 (140-440); RDW Standard Deviation 42.7 fL (36.4-46.3); Red Blood Count 3.08 Miln/mm3 (4.00-5.20); White Blood Count 10.8 Thou/mm3 (3.6-11.0)
[2024-09-03 06:48] LABS: Alanine Aminotransferase 7 U/L (10-49); Albumin, Serum 3.5 gm/dL (3.4-4.8); Albumin/Globulin Ratio 1.6 (1.2-2.2); Alkaline Phosphatase 105 U/L (46-116); Anion Gap 8 (7-16); Aspartate Amino Transferase 12 U/L (0-34); BUN/Creatinine Ratio 8 Ratio (12-20); Bilirubin,Total 0.2 mg/dL (0.3-1.2); Blood Urea Nitrogen 17 mg/dL (9-23); Calcium 8.5 mg/dL (8.3-10.6); Calcium (Corrected) 8.9 mg/dL (8.5-10.1); Carbon Dioxide 31.3 mMol/L (20.0-31.0); Chloride 101 mMol/L (98-107); Creatinine (Component) 2.2 mg/dL (0.6-1.3); Estimated Creatinine Clearance 19.1 mL/min (>60); Globulin 2.2 gm/dL (2.3-3.5); Glucose 118 mg/dL (74-106); Magnesium 2.4 mg/dL (1.6-2.6); Osmolality,Calculated 281 (275-295); Phosphorous 3.9 mg/dL (2.4-5.1); Potassium 4.5 mMol/L (3.4-5.1); Sodium 140 mMol/L (136-145); Total Protein 5.7 gm/dL (5.7-8.2); eGFR 22 See Note
--- NOTE | 2024-09-03 07:31 | ESPR_ITS ---
Documentation for date of: 09/03/24 Subjective Subjective Interval history: Ms. Saldivar is an 83-year-old female with a past medical history of CKD stage IV, secondary to diabetic nephropathy, hypertension, interstitial cystitis, anemia, hyperlipidemia, anxiety and HFpEF, who was seen in the emergency room complaining of severe abdominal pain. The patient has poorly controlled hypertension, and has been having progressive worsening of her GFR for the past few months, currently dropping below 15, plan to start renal replacement therapy. The patient had multiple ER visits during past 3 days consecutively for review of symptoms including abdominal pain, headache and anxiety. In the ER, patient was noted to have hypertensive urgency,patient was given clonidine 0.3 mg x 1, which made her sick to her stomach. Did help improve the blood pressure.initial CT of the head was negative for acute hemorrhage, labs consistent with end-stage renal disease. Also noted hypertensive the patient will be admitted to the hospital for management of end-stage renal disease, initiate hemodialysis. The patient will require SNF placement on discharge. 09/02/2024, patient evaluated at bedside today, reported having 5-6 episodes of vomiting after meals, vomitus contained food contents, denied hematemesis or melena. Reporting some lower abdominal discomfort in the suprapubic region. Patient denied having any nausea at the moment. Denied chest pain or shortness of breath. Patient received dialysis catheter yesterday, hemodialysis ordered for 2 PM. Labs show sodium 140 potassium 4.3, BUN 27 creatinine 2.5. 09/03/2024 patient currently seen in medical floor. Resting comfortably. Agreed for rehab and to twice weekly dialysis. Next dialysis scheduled for tomorrow and postdialysis can be discharged. Still having some nausea. Review of Systems Review of Systems Narrative Review of Systems: Denies any chest pain, shortness of breath. Denies any nausea, vomiting. Exam Vital Signs Temp Pulse Resp BP Pulse Ox O2 Del Method O2 Flow Rate 36.4 C 94 16 152/73 H 92 L Room Air 2 09/03/24 04:00 09/03/24 04:00 09/03/24 04:00 09/03/24 04:00 09/03/24 04:00 09/03/24 04:00 09/02/24 17:52 Narrative Exam General: Elderly female, in no acute discomfort HEENT: NCAT, No JVD noted. Mucosa moist. Pupils are equal and reactive to light bilaterally Cardiovascular: Normal S1 and S2. Regular rate and rhythm. Respiratory: Lungs are clear to auscultation bilaterally. No wheezing or crackles heard. RIJ cath Abdomen: Soft, mildly tender at suprapubic region, not distended, normal bowel sounds. Skin: Warm to touch, dry, no rashes noted Musculoskeletal: No gross injuries. Able to move all 4 extremities. +1 edema Neuro: Alert and oriented x3. No focal neuro deficits. Psych: Normal affect and mood Objective Labs 09/03/24 05:20 09/04/24 07:39 Labs: Laboratory Results - last 24 hr 09/03/24 05:20 WBC 10.8 RBC 3.08 L Hgb 9.3 L Hct 28.0 L MCV 91 MCH 30.2 MCHC 33.2 RDW Std Deviation 42.7 Plt Count 239 Neut % (Auto) 56 Lymph % (Auto) 34 [place] % (Auto) 7 Eos % (Auto) 1 Baso % (Auto) 1 Neut # (Auto) 6.1 Lymph # (Auto) 3.7 [place] # (Auto) 0.8 Eos # (Auto) 0.1 Baso # (Auto) 0.1 Immature Gran # (Auto) 0.11 H Absolute Nucleated RBC 0.00 Immature Gran % 1 H Nucleated RBC % 0 Sodium 140 Potassium 4.5 Chloride 101 Carbon Dioxide 31.3 H Anion Gap 8 BUN 17 Creatinine 2.2 H Estim Creat Clear Calc 19.1 L eGFR 22 L BUN/Creatinine Ratio 8 L Glucose 118 H Calculated Osmolality 281 Calcium 8.5 Corrected Calcium 8.9 Phosphorus 3.9 Magnesium 2.4 Total Bilirubin 0.2 L AST 12 ALT 7 L Alkaline Phosphatase 105 Total Protein 5.7 Albumin 3.5 Globulin 2.2 L Albumin/Globulin Ratio 1.6 Assessment & Plan Additional Assessment & Plan Additional Plan: Patient is an 83-year-old female with a past medical history of CKD stage IV, secondary to diabetic nephropathy, hypertension, interstitial cystitis, anemia, hyperlipidemia, anxiety and HFpEF, who was seen in the emergency room complaining of severe abdominal pain. The patient has poorly controlled hypertension, and has been having progressive worsening of her GFR for the past few months, currently dropping below 15, plan to start renal replacement therapy. The patient had multiple ER visits during past 3 days consecutively for review of symptoms including abdominal pain, headache and anxiety. In the ER, initial CT of the head was negative for acute hemorrhage, labs consistent with end-stage renal disease. The patient will be admitted to the hospital for management of end-stage renal disease, initiate hemodialysis. The patient will require SNF placement on discharge. #ESRD #Diabetic nephropathy #Proteinuria Progressively worsening GFR, now CKD stage V, progressing to ESRD, secondary diabetic nephropathy, plan to initiate renal replacement therapy. Patient will require outpatient hemodialysis chair and placement to senior living. ? hep markers ? PPD ? received hemodialysis catheter and 2 hemodialysis sessions needs OP dialysis #Hypertensive urgency Systolic blood pressure in the 200s, on arrival, suspect noncompliance with medications, home medications include losartan 100 mg daily. In the ER patient was given clonidine 0.3 mg x 1, which made her sick to her stomach. Did help improve the blood pressure. ? Resume home dose of losartan 100 mg daily ? IV hydralazine as needed for hypertensive emergency #History of HFpEF #History of diabetes mellitus #History of hyperlipidemia #History of interstitial cystitis?chronic ? Management per primary team
[2024-09-03] MEDS: INSULIN GLARGINE (Lantus) 5 UNIT/0.05 ML (PER 5 UNITS) 30 UNIT SC (08:24)
[2024-09-03] MEDS: lorataDINE 10 MG TABLET PO (08:24)
[2024-09-03] MEDS: hydrALAZINE HCL 25 MG TABLET PO (11:02)
[2024-09-03] MEDS: LOSARTAN POTASSIUM 25 MG TABLET 100 MG PO (11:03)
[2024-09-03] MEDS: INSULIN LISPRO (AdmeLOG) 1 UNIT/0.01 ML UNIT SC ×2 (11:11→21:09)
--- NOTE | 2024-09-03 13:18 | ESPR_ITS ---
Documentation for date of: 09/03/24 Subjective Subjective Interval history: Patient examined at bedside. No events overnight. Tolerated dialysis session well yesterday but complains of lethargy. Denies any nausea, vomiting, abdominal pain this morning. Mild hypertension 152/73 other vitals are stable. Started patient on p.o. hydralazine 25 mg TID and continuing losartan 100 mg daily. Labs are stable. Planning for hemodialysis session tomorrow. Discharge also pending outpatient dialysis chair. Exam Vital Signs Temp Pulse Resp BP Pulse Ox O2 Del Method O2 Flow Rate 97.8 F 90 14 170/88 H 97 Room Air 2 09/03/24 12:00 09/03/24 12:14 09/03/24 12:00 09/03/24 12:00 09/03/24 12:00 09/03/24 12:00 09/02/24 17:52 Narrative Exam General: Elderly female, No acute distress HEENT: NCAT, No JVD noted. Mucosa moist. Pupils are equal and reactive to light bilaterally Cardiovascular: Normal S1 and S2. Regular rate and rhythm. Respiratory: Lungs are clear to auscultation bilaterally. No wheezing or crackles heard. Abdomen: Soft, nontender, not distended, normal bowel sounds. Skin: Warm to touch, dry, no rashes noted, right TDC in place, no bleeding Musculoskeletal: No gross injuries. Able to move all 4 extremities. +1 edema Neuro: Alert and oriented x3. No focal neuro deficits. Psych: rapid changes in mood Objective Labs 09/03/24 05:20 09/03/24 05:20 Labs: Laboratory Results - last 24 hr 09/03/24 05:20 WBC 10.8 RBC 3.08 L Hgb 9.3 L Hct 28.0 L MCV 91 MCH 30.2 MCHC 33.2 RDW Std Deviation 42.7 Plt Count 239 Neut % (Auto) 56 Lymph % (Auto) 34 [place] % (Auto) 7 Eos % (Auto) 1 Baso % (Auto) 1 Neut # (Auto) 6.1 Lymph # (Auto) 3.7 [place] # (Auto) 0.8 Eos # (Auto) 0.1 Baso # (Auto) 0.1 Immature Gran # (Auto) 0.11 H Absolute Nucleated RBC 0.00 Immature Gran % 1 H Nucleated RBC % 0 Sodium 140 Potassium 4.5 Chloride 101 Carbon Dioxide 31.3 H Anion Gap 8 BUN 17 Creatinine 2.2 H Estim Creat Clear Calc 19.1 L eGFR 22 L BUN/Creatinine Ratio 8 L Glucose 118 H Calculated Osmolality 281 Calcium 8.5 Corrected Calcium 8.9 Phosphorus 3.9 Magnesium 2.4 Total Bilirubin 0.2 L AST 12 ALT 7 L Alkaline Phosphatase 105 Total Protein 5.7 Albumin 3.5 Globulin 2.2 L Albumin/Globulin Ratio 1.6 Quality Measures Quality Measures none Advance care planning discussed with:: patient Assessment & Plan Assessment Current Active Medications: Generic Name Dose Route Start Last Admin Trade Name Freq PRN Reason Stop Dose Admin Acetaminophen 650 mg 09/01/24 21:03 09/03/24 05:07 Acetaminophen 325 Mg Tablet PO 09/30/24 16:16 650 mg Q6H PRN Administration PAIN 1-3 OR FEVER > 101 Al Hydrox/Mg Hydrox/Simethicone 30 ml 09/02/24 00:11 09/02/24 12:44 Mg Hyd/Al Hyd/Arya (Maalox Reg) Susp 30 Ml Udc PO 10/02/24 00:10 30 ml Q4HR PRN Administration UPSET STOMACH/INDIGESTION Atorvastatin Calcium 20 mg 08/31/24 21:00 09/02/24 21:06 Atorvastatin Calcium 20 Mg Tablet PO 09/30/24 20:59 20 mg HS ACE Administration Benzonatate 100 mg 09/01/24 08:00 09/03/24 05:07 Benzonatate 100 Mg Capsule PO 10/01/24 07:59 100 mg TID ACE Administration Protocol Dextrose 25 ml 08/31/24 16:24 Dextrose 50%-Water Inj 50 Ml Syringe IV 09/30/24 16:23 Q15MIN PRN BG 50-70 responsive npo pt Dextrose 50 ml 08/31/24 16:24 Dextrose 50%-Water Inj 50 Ml Syringe IV 09/30/24 16:23 Q15MIN PRN BG <50 OR BG <70 & pt unresponsive Glucagon 1 mg 08/31/24 16:24 Glucagon Inj 1 Mg Vial IM Q15MIN PRN BG <70, and no IV access Heparin Sodium (Porcine) 3,800 unit 09/01/24 15:27 09/02/24 19:42 Heparin Sod Inj 1000 Unit/Ml Vial 10 Ml INDWELLCAT 09/15/24 15:26 3,800 unit X1 PRN Administration DIALYSIS Hydralazine HCl 10 mg 08/31/24 16:27 09/01/24 11:58 Hydralazine Inj 20 Mg/Ml Vial IVP 09/30/24 16:29 10 mg Q6H PRN Administration hypertension Hydralazine HCl 25 mg 09/03/24 10:00 09/03/24 11:02 Hydralazine Hcl 25 Mg Tablet PO 10/03/24 09:59 25 mg TID ACE Administration Hydromorphone HCl 0.25 mg 09/01/24 20:58 Hydromorphone Inj 2 Mg/Ml Vial IVP 09/06/24 20:57 Q6HR PRN Pain 7-10 Insulin Glargine 30 unit 09/01/24 09:00 09/03/24 08:24 Insulin Glargine (Lantus) 5 Unit/0.05 Ml (Per 5 Units) SC 10/01/24 08:59 30 unit QDAY ACE Administration Insulin Human Lispro 0 unit 09/01/24 17:00 09/03/24 11:11 Insulin Lispro (Admelog) 1 Unit/0.01 Ml Unit SC 10/01/24 16:59 3 unit ACHS ACE Administration Protocol Loratadine 10 mg 09/01/24 09:00 09/03/24 08:24 Loratadine 10 Mg Tablet PO 10/01/24 08:59 10 mg QDAY ACE Administration Losartan Potassium 100 mg 09/01/24 09:00 09/03/24 11:03 Losartan Potassium 25 Mg Tablet PO 10/01/24 08:59 100 mg QDAY ACE Administration Metoclopramide HCl 10 mg 09/02/24 12:37 Metoclopramide Inj 5 Mg/Ml Vial 2 Ml IVP 10/02/24 12:36 Q6HR PRN NAUSEA OR VOMITING Protocol Non-Formulary Medication 100 mg 08/31/24 22:00 09/03/24 05:07 Pentosan Polysulfate Sodium PO 09/30/24 21:59 Not Given TID ACE Sertraline HCl 25 mg 08/31/24 21:00 09/02/24 21:06 Sertraline Hcl 25 Mg Tablet PO 09/30/24 20:59 25 mg HS ACE Administration Plan Alberta Saldivar is 83 yr female with PMH of primary hypertension insulin-dependent diabetes mellitus type 2, CKD stage IV [baseline CR 2.7] follows up with Dr. Brito, chronic interstitial cystitis, chronic normocytic anemia, hyperlipidemia, anxiety and heart failure with preserved ejection fraction [EF 60 to 65%] presenting to ED on 08/31/[address] Brito. Patient to be admitted for catheter insertion and starting dialysis. 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 Electrolytes otherwise unremarkable. She has been following with Dr. Brito since past 4 years. Likely renal disease in setting of diabetes and poorly controlled hypertension. She is unable to communicate properly quantity of urine output. Hepatitis panel negative ? Nephrology Dr Brito consulted - had TDC placed -continue HD sessions in patient per nephrology (neck session tomorrow) ? She has received 2 sessions so far, well-tolerated -Renally dose medications #Primary hypertension #Hyperlipidemia BP 190/91, heart rate 85. Patient was endorsing headache. Is on losartan 100 mg daily. Compliant with medications and checks her blood pressure every day ranging 128-140 systolic. ? Resume home antihypertensive ?IV hydralazine 10 mg q6hr PRN for SBP>170, DBP >110, hold if HR >90 -PO hydralazine 10 mg TID -Continue home losartan 100 mg daily -montior BP - Resumed atorvastatin 20 mg daily #Interstitial cystitis Experiences frequent UTIs and frequent use of antibiotics. Currently on medication Elmiron for painful bladder. ? Continue to monitor ? Urine culture pending ? Follow-up outpatient #Heart failure with preserved ejection fraction [EF 60 to 65%] Patient currently denies any symptoms of SOB, PND, orthopnea and chest pain. NYHA class III Home medication Lasix 40 Mg p.o. daily. #Insulin-dependent type 2 diabetes mellitus-poorly controlled Glucose on admission 196. Last A1c 8.5 on 04/28/24. Patient takes 50 units degludac daily and 10units lispro TID for diabetes at home. -Held home medications -Bedside blood glucose checks ACHS -luntus 30 qday -Insulin lispro sliding scale -Carb consistent low diet #Anxiety #Depression Resumed home meds sertraline 25 mg daily #Hypertensive urgency-resolved Health maintenance: Dispo: tele, ESRD on new HD. DC to SNF on pending outpatient HD chair FEN: renal, low carb DVT prophylaxis: Subcu heparin CODE STATUS: Full code Patient care was discussed with attending physician Dr. Zara Bernal PGY1 Attending Provider Attestation/Addendum I attest that I was physically present for the evaluation, physical examination, lab and imaging review of the patient with the residents. I discussed the case with the residents and agree with the findings and plans of care as documented above. At bedside today, patient states she is feeling well and denies any new complaints. She stated that she is feeling more sleepy compared to yesterday, provided reassurance. Denies any nausea, vomiting or abdominal pain. Blood pressure continues to be on higher side, started on hydralazine 25 3 times daily which was later increased to 50 3 times daily. Lab results are stable. Patient will undergo third hemodialysis session tomorrow. If hemodialysis outpatient chair is arranged, anticipate discharge after hemodialysis tomorrow. Jacinta Zuñiga MD
[2024-09-03] MEDS: hydrALAZINE HCL 25 MG TABLET 50 MG PO ×2 (15:20→21:10)
[2024-09-03] MEDS: amLODIPine BESYLATE 5 MG TABLET PO (15:22)
[2024-09-03] MEDS: ELMIRON 100 MG PO (15:55)
[2024-09-03] MEDS: ATORVASTATIN CALCIUM 20 MG TABLET PO (21:10)
[2024-09-03] MEDS: SERTRALINE HCL 25 MG TABLET PO (21:10)
[2024-09-04] VITALS (23 sets, daily range): BP systolic 138–188; BP diastolic 62–95; PULSE 75–98; RESP 15–18; TEMP 36.3–36.4; O2SAT 94–96
[2024-09-04] MEDS: ACETAMINOPHEN 325 MG TABLET 650 MG PO ×2 (04:37→12:36)
[2024-09-04] MEDS: BENZONATATE 100 MG CAPSULE PO ×2 (06:04→14:34)
[2024-09-04] MEDS: hydrALAZINE HCL 25 MG TABLET 50 MG PO ×2 (06:04→14:33)
[2024-09-04] MEDS: ELMIRON 100 MG PO (06:05)
[2024-09-04 06:20] LABS: Collection Type, Urine Clean Catch
[2024-09-04 07:03] LABS: Bacteria,Urine 4+; Bilirubin,Urine Negative (Negative); Blood,Urine 1+ (Negative); Clarity,Urine Turbid (Clear/Hazy); Color,Urine Lt-Yellow (Lt Yel-Yel); Glucose, Urine Negative (Negative); Ketones,Urine Negative (Negative); Leukocyte Esterase,Urine Positive (Negative); Nitrite,Urine Negative (Negative); PH,Urine 6.5 (5.0-7.0); Protein,Urine 2+ (Neg - Trace); RBC,Urine < 1 /hpf (0-3); Specific Gravity,Urine 1.008 (1.001-1.035); Squamous Epithelial Cell,Urine 2 /hpf (0-5); Urobilinogen,Urine Negative mg/dL (0.0-1.0); WBC,Urine 72 /hpf (0-5)
[2024-09-04 08:21] LABS: Albumin, Serum 3.7 gm/dL (3.4-4.8); Anion Gap 4 (7-16); BUN/Creatinine Ratio 8 Ratio (12-20); Blood Urea Nitrogen 22 mg/dL (9-23); Calcium 8.8 mg/dL (8.3-10.6); Carbon Dioxide 33.1 mMol/L (20.0-31.0); Chloride 100 mMol/L (98-107); Creatinine (Component) 2.8 mg/dL (0.6-1.3); Glucose 131 mg/dL (74-106); Osmolality,Calculated 279 (275-295); Phosphorous 4.4 mg/dL (2.4-5.1); Potassium 5.1 mMol/L (3.4-5.1); Sodium 137 mMol/L (136-145); eGFR 16 See Note
[2024-09-04] MEDS: INSULIN GLARGINE (Lantus) 5 UNIT/0.05 ML (PER 5 UNITS) 30 UNIT SC (08:36)
--- NOTE | 2024-09-04 08:44 | PD.RESPRO ---
Documentation for date of: 09/04/24 Subjective Subjective Interval history: Ms. Saldivar is an 83-year-old female with a past medical history of CKD stage IV, secondary to diabetic nephropathy, hypertension, interstitial cystitis, anemia, hyperlipidemia, anxiety and HFpEF, who was seen in the emergency room complaining of severe abdominal pain. The patient has poorly controlled hypertension, and has been having progressive worsening of her GFR for the past few months, currently dropping below 15, plan to start renal replacement therapy. The patient had multiple ER visits during past 3 days consecutively for review of symptoms including abdominal pain, headache and anxiety. In the ER, patient was noted to have hypertensive urgency,patient was given clonidine 0.3 mg x 1, which made her sick to her stomach. Did help improve the blood pressure.initial CT of the head was negative for acute hemorrhage, labs consistent with end-stage renal disease. Also noted hypertensive the patient will be admitted to the hospital for management of end-stage renal disease, initiate hemodialysis. The patient will require SNF placement on discharge. 09/02/2024, patient evaluated at bedside today, reported having 5-6 episodes of vomiting after meals, vomitus contained food contents, denied hematemesis or melena. Reporting some lower abdominal discomfort in the suprapubic region. Patient denied having any nausea at the moment. Denied chest pain or shortness of breath. Patient received dialysis catheter yesterday, hemodialysis ordered for 2 PM. Labs show sodium 140 potassium 4.3, BUN 27 creatinine 2.5. 09/04/2024, patient evaluated bedside, reported having nausea after receiving morning dose of antibiotics. Patient requesting her morning dose of antibiotic be scheduled with meals. Patient will receive hemodialysis today per schedule. Sodium 137 potassium 5.1, carbon dioxide 33.1, BUN 22 creatinine 2.8. Exam Vital Signs Temp Pulse Resp BP Pulse Ox O2 Del Method O2 Flow Rate 97.4 F 90 18 138/69 H 95 Room Air 2 09/04/24 07:51 09/04/24 07:51 09/04/24 07:51 09/04/24 07:51 09/04/24 07:51 09/04/24 07:51 09/02/24 17:52 Narrative Exam General: Elderly female, in no acute discomfort HEENT: NCAT, No JVD noted. Mucosa moist. Pupils are equal and reactive to light bilaterally Cardiovascular: Normal S1 and S2. Regular rate and rhythm. Respiratory: Lungs are clear to auscultation bilaterally. No wheezing or crackles heard. Abdomen: Soft, mildly tender at suprapubic region, not distended, normal bowel sounds. Skin: Warm to touch, dry, no rashes noted Musculoskeletal: No gross injuries. Able to move all 4 extremities. +1 edema Neuro: Alert and oriented x3. No focal neuro deficits. Psych: Normal affect and mood Objective Labs 09/03/24 05:20 09/04/24 07:39 Labs: Laboratory Results - last 24 hr 09/04/24 09/04/24 06:00 07:39 Sodium 137 Potassium 5.1 D Chloride 100 Carbon Dioxide 33.1 H Anion Gap 4 L BUN 22 Creatinine 2.8 H D Estim Creat Clear Calc 15.0 L eGFR 16 L BUN/Creatinine Ratio 8 L Glucose 131 H Calculated Osmolality 279 Calcium 8.8 Corrected Calcium 9.0 Phosphorus 4.4 Albumin 3.7 Ur Collection Type Clean Catch Urine Color Lt-Yellow Urine Clarity Turbid A Urine pH 6.5 Ur Specific [place] 1.008 Urine Protein 2+ A Urine Glucose (UA) Negative Urine Ketones Negative Urine Blood 1+ A Urine Nitrite Negative Urine Bilirubin Negative Urine Urobilinogen (Auto) Negative Ur Leukocyte Esterase Positive Urine RBC < 1 Urine WBC 72 H Ur Squamous Epith Cells 2 Urine Bacteria 4+ A Quality Measures Quality Measures none Advance care planning discussed with:: patient Assessment & Plan Assessment Current Active Medications: Generic Name Dose Route Start Last Admin Trade Name Freq PRN Reason Stop Dose Admin Acetaminophen 650 mg 09/01/24 21:03 09/04/24 04:37 Acetaminophen 325 Mg Tablet PO 09/30/24 16:16 650 mg Q6H PRN Administration PAIN 1-3 OR FEVER > 101 Al Hydrox/Mg Hydrox/Simethicone 30 ml 09/02/24 00:11 09/02/24 12:44 Mg Hyd/Al Hyd/Arya (Maalox Reg) Susp 30 Ml Udc PO 10/02/24 00:10 30 ml Q4HR PRN Administration UPSET STOMACH/INDIGESTION Amlodipine Besylate 5 mg 09/03/24 14:00 09/03/24 15:22 Amlodipine Besylate 5 Mg Tablet PO 10/03/24 13:59 5 mg QDAY ACE Administration Atorvastatin Calcium 20 mg 08/31/24 21:00 09/03/24 21:10 Atorvastatin Calcium 20 Mg Tablet PO 09/30/24 20:59 20 mg HS ACE Administration Benzonatate 100 mg 09/01/24 08:00 09/04/24 06:04 Benzonatate 100 Mg Capsule PO 10/01/24 07:59 100 mg TID ACE Administration Protocol Elmiron 100 Mg 0 ea 09/03/24 16:30 09/04/24 06:05 Capsules PO 10/03/24 16:29 1 capsule TID@0700,1100,1630 ACE Administration Dextrose 25 ml 08/31/24 16:24 Dextrose 50%-Water Inj 50 Ml Syringe IV 09/30/24 16:23 Q15MIN PRN BG 50-70 responsive npo pt Dextrose 50 ml 08/31/24 16:24 Dextrose 50%-Water Inj 50 Ml Syringe IV 09/30/24 16:23 Q15MIN PRN BG <50 OR BG <70 & pt unresponsive Glucagon 1 mg 08/31/24 16:24 Glucagon Inj 1 Mg Vial IM Q15MIN PRN BG <70, and no IV access Heparin Sodium (Porcine) 3,800 unit 09/01/24 15:27 09/02/24 19:42 Heparin Sod Inj 1000 Unit/Ml Vial 10 Ml INDWELLCAT 09/15/24 15:26 3,800 unit X1 PRN Administration DIALYSIS Hydralazine HCl 10 mg 08/31/24 16:27 09/01/24 11:58 Hydralazine Inj 20 Mg/Ml Vial IVP 09/30/24 16:29 10 mg Q6H PRN Administration hypertension Hydralazine HCl 50 mg 09/03/24 14:00 09/04/24 06:04 Hydralazine Hcl 25 Mg Tablet PO 10/03/24 13:59 50 mg TID ACE Administration Hydromorphone HCl 0.25 mg 09/01/24 20:58 Hydromorphone Inj 2 Mg/Ml Vial IVP 09/06/24 20:57 Q6HR PRN Pain 7-10 Insulin Glargine 30 unit 09/01/24 09:00 09/04/24 08:36 Insulin Glargine (Lantus) 5 Unit/0.05 Ml (Per 5 Units) SC 10/01/24 08:59 30 unit QDAY ACE Administration Insulin Human Lispro 0 unit 09/01/24 17:00 09/04/24 07:09 Insulin Lispro (Admelog) 1 Unit/0.01 Ml Unit SC 10/01/24 16:59 Not Given ACHS ACE Protocol Loratadine 10 mg 09/01/24 09:00 09/03/24 08:24 Loratadine 10 Mg Tablet PO 10/01/24 08:59 10 mg QDAY ACE Administration Losartan Potassium 100 mg 09/01/24 09:00 09/03/24 11:03 Losartan Potassium 25 Mg Tablet PO 10/01/24 08:59 100 mg QDAY ACE Administration Metoclopramide HCl 10 mg 09/02/24 12:37 Metoclopramide Inj 5 Mg/Ml Vial 2 Ml IVP 10/02/24 12:36 Q6HR PRN NAUSEA OR VOMITING Protocol Sertraline HCl 25 mg 08/31/24 21:00 09/03/24 21:10 Sertraline Hcl 25 Mg Tablet PO 09/30/24 20:59 25 mg HS ACE Administration Plan Patient is an 83-year-old female with a past medical history of CKD stage IV, secondary to diabetic nephropathy, hypertension, interstitial cystitis, anemia, hyperlipidemia, anxiety and HFpEF, who was seen in the emergency room complaining of severe abdominal pain. The patient has poorly controlled hypertension, and has been having progressive worsening of her GFR for the past few months, currently dropping below 15, plan to start renal replacement therapy. The patient had multiple ER visits during past 3 days consecutively for review of symptoms including abdominal pain, headache and anxiety. In the ER, initial CT of the head was negative for acute hemorrhage, labs consistent with end-stage renal disease. The patient will be admitted to the hospital for management of end-stage renal disease, initiate hemodialysis. The patient will require SNF placement on discharge. 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 Patient will require outpatient hemodialysis chair and placement to skilled nursing. ? Will continue hemodialysis. #Hypertensive urgency Systolic blood pressure in the 200s, on arrival, suspect noncompliance with medications, home medications include losartan 100 mg daily. In the ER patient was given clonidine 0.3 mg x 1, which made her sick to her stomach. Did help improve the blood pressure. ? Resume home dose of losartan 100 mg daily ? IV hydralazine as needed for hypertensive emergency #History of HFpEF #History of diabetes mellitus #History of hyperlipidemia #History of interstitial cystitis?chronic ? Management per primary team Plan of care discussed with pet care assistant Dr Alisha Shepherd PGY2 Attending Provider Attestation/Addendum Patient seen and examined with resident physician Dr. Shepherd. Note reviewed, agree with findings and recommendations. Patient currently seen on dialysis. Tolerating dialysis without any problems. Hemodialysis for 3 hours, 2K, ultrafiltration 1 L, Epogen 6000, no heparin ordered. Plan of care discussed with the dialysis nurse. Please see dialysis flowsheet for further details. Patient will be discharged to rehab with twice weekly dialysis.
[2024-09-04] MEDS: ONDANSETRON ODT 4 MG TABRAP PO (09:27)
[2024-09-04] MEDS: LOSARTAN POTASSIUM 25 MG TABLET 100 MG PO (09:29)
[2024-09-04] MEDS: lorataDINE 10 MG TABLET PO (09:29)
--- NOTE | 2024-09-04 10:41 | PC.SS ---
Addendum entered by Elise Johnson 09/04/24 15:29: SS confirmed with [facility] chairtime is scheduled for 09/08/24 1230. Schedule will then be Mondays and Fridays 1310. [facility] will transport patient today at 1600. SS informed RN Mayte. SS also informed patient's daughter Stacie at bedside and patient of ETA 1600 for transportation via [facility]'s transportation team. Original Note: SS met with patient and daughter Stefani Nunez to confirm SNF of choice. Patient chose [facility]. Patient requested SS if patient can have private room at [facility]. SS confirmed with [facility] who stated she can accommodate patient's request. Level 2 PASRR clearance is pending. SS to follow up.
--- NOTE | 2024-09-04 14:07 | PD.RESPRO ---
Documentation for date of: 09/04/24 Subjective Subjective Interval history: Patient examined at bedside. No events overnight. Continues to complain of some abdominal discomfort and nausea. Per nursing, patient has not had any emesis. Will start her on p.o. Zofran as she feels that unable to tolerate IV form. Mild hypertension 159/73 other vitals are stable. Continue PO hydralazine 50 mg TID and losartan 100 mg daily. Labs are stable. Blood sugars well controlled. Cr improved to 2.2 today, GFR 16. Planning for hemodialysis session today. Discharge also pending outpatient dialysis chair. Exam Vital Signs Temp Pulse Resp BP Pulse Ox O2 Del Method O2 Flow Rate 97.5 F 87 18 147/67 H 96 Room Air 2 09/04/24 13:35 09/04/24 13:35 09/04/24 13:35 09/04/24 13:35 09/04/24 13:35 09/04/24 07:51 09/02/24 17:52 Narrative Exam General: Elderly female, No acute distress HEENT: NCAT, No JVD noted. Mucosa moist. Pupils are equal and reactive to light bilaterally Cardiovascular: Normal S1 and S2. Regular rate and rhythm. Respiratory: Lungs are clear to auscultation bilaterally. No wheezing or crackles heard. Abdomen: Soft, nontender, not distended, normal bowel sounds. Skin: Warm to touch, dry, no rashes noted, right TDC in place, no bleeding Musculoskeletal: No gross injuries. Able to move all 4 extremities. No pitting edema. Neuro: Alert and oriented x3. No focal neuro deficits. Psych: rapid changes in mood Objective Labs 09/03/24 05:20 09/04/24 07:39 Labs: Laboratory Results - last 24 hr 09/04/24 09/04/24 06:00 07:39 Sodium 137 Potassium 5.1 D Chloride 100 Carbon Dioxide 33.1 H Anion Gap 4 L BUN 22 Creatinine 2.8 H D Estim Creat Clear Calc 15.0 L eGFR 16 L BUN/Creatinine Ratio 8 L Glucose 131 H Calculated Osmolality 279 Calcium 8.8 Corrected Calcium 9.0 Phosphorus 4.4 Albumin 3.7 Ur Collection Type Clean Catch Urine Color Lt-Yellow Urine Clarity Turbid A Urine pH 6.5 Ur Specific [place] 1.008 Urine Protein 2+ A Urine Glucose (UA) Negative Urine Ketones Negative Urine Blood 1+ A Urine Nitrite Negative Urine Bilirubin Negative Urine Urobilinogen (Auto) Negative Ur Leukocyte Esterase Positive Urine RBC < 1 Urine WBC 72 H Ur Squamous Epith Cells 2 Urine Bacteria 4+ A Quality Measures Quality Measures none Advance care planning discussed with:: patient Assessment & Plan Assessment Current Active Medications: Generic Name Dose Route Start Last Admin Trade Name Freq PRN Reason Stop Dose Admin Acetaminophen 650 mg 09/01/24 21:03 09/04/24 12:36 Acetaminophen 325 Mg Tablet PO 09/30/24 16:16 650 mg Q6H PRN Administration PAIN 1-3 OR FEVER > 101 Al Hydrox/Mg Hydrox/Simethicone 30 ml 09/02/24 00:11 09/02/24 12:44 Mg Hyd/Al Hyd/Arya (Maalox Reg) Susp 30 Ml Udc PO 10/02/24 00:10 30 ml Q4HR PRN Administration UPSET STOMACH/INDIGESTION Amlodipine Besylate 5 mg 09/03/24 14:00 09/04/24 09:35 Amlodipine Besylate 5 Mg Tablet PO 10/03/24 13:59 Not Given QDAY ACE Atorvastatin Calcium 20 mg 08/31/24 21:00 09/03/24 21:10 Atorvastatin Calcium 20 Mg Tablet PO 09/30/24 20:59 20 mg HS ACE Administration Benzonatate 100 mg 09/01/24 08:00 09/04/24 06:04 Benzonatate 100 Mg Capsule PO 10/01/24 07:59 100 mg TID ACE Administration Protocol Elmiron 100 Mg 0 ea 09/03/24 16:30 09/04/24 12:11 Capsules PO 10/03/24 16:29 Not Given TID@0700,1100,1630 ACE Dextrose 25 ml 08/31/24 16:24 Dextrose 50%-Water Inj 50 Ml Syringe IV 09/30/24 16:23 Q15MIN PRN BG 50-70 responsive npo pt Dextrose 50 ml 08/31/24 16:24 Dextrose 50%-Water Inj 50 Ml Syringe IV 09/30/24 16:23 Q15MIN PRN BG <50 OR BG <70 & pt unresponsive Glucagon 1 mg 08/31/24 16:24 Glucagon Inj 1 Mg Vial IM Q15MIN PRN BG <70, and no IV access Heparin Sodium (Porcine) 3,800 unit 09/01/24 15:27 09/02/24 19:42 Heparin Sod Inj 1000 Unit/Ml Vial 10 Ml INDWELLCAT 09/15/24 15:26 3,800 unit X1 PRN Administration DIALYSIS Hydralazine HCl 10 mg 08/31/24 16:27 09/01/24 11:58 Hydralazine Inj 20 Mg/Ml Vial IVP 09/30/24 16:29 10 mg Q6H PRN Administration hypertension Hydralazine HCl 50 mg 09/03/24 14:00 09/04/24 06:04 Hydralazine Hcl 25 Mg Tablet PO 10/03/24 13:59 50 mg TID ACE Administration Hydromorphone HCl 0.25 mg 09/01/24 20:58 Hydromorphone Inj 2 Mg/Ml Vial IVP 09/06/24 20:57 Q6HR PRN Pain 7-10 Insulin Glargine 30 unit 09/01/24 09:00 09/04/24 08:36 Insulin Glargine (Lantus) 5 Unit/0.05 Ml (Per 5 Units) SC 10/01/24 08:59 30 unit QDAY ACE Administration Insulin Human Lispro 0 unit 09/01/24 17:00 09/04/24 12:11 Insulin Lispro (Admelog) 1 Unit/0.01 Ml Unit SC 10/01/24 16:59 Not Given ACHS ACE Protocol Loratadine 10 mg 09/01/24 09:00 09/04/24 09:29 Loratadine 10 Mg Tablet PO 10/01/24 08:59 10 mg QDAY ACE Administration Losartan Potassium 100 mg 09/01/24 09:00 09/04/24 09:29 Losartan Potassium 25 Mg Tablet PO 10/01/24 08:59 100 mg QDAY ACE Administration Metoclopramide HCl 10 mg 09/02/24 12:37 Metoclopramide Inj 5 Mg/Ml Vial 2 Ml IVP 10/02/24 12:36 Q6HR PRN NAUSEA OR VOMITING Protocol Ondansetron HCl 4 mg 09/04/24 08:45 09/04/24 09:27 Ondansetron Odt 4 Mg Tabrap PO 10/04/24 08:44 4 mg Q6HR PRN Administration NAUSEA OR VOMITING Protocol Sertraline HCl 25 mg 08/31/24 21:00 09/03/24 21:10 Sertraline Hcl 25 Mg Tablet PO 09/30/24 20:59 25 mg HS [facility] Administration Plan Alberta Saldivar is 83 yr female with PMH of primary hypertension insulin-dependent diabetes mellitus type 2, CKD stage IV [baseline CR 2.7] follows up with Dr. Brito, chronic interstitial cystitis, chronic normocytic anemia, hyperlipidemia, anxiety and heart failure with preserved ejection fraction [EF 60 to 65%] presenting to ED on 08/31/[address] Brito. Patient to be admitted for catheter insertion and starting dialysis. 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 Electrolytes otherwise unremarkable. She has been following with Dr. Brito since past 4 years. Likely renal disease in setting of diabetes and poorly controlled hypertension. She is unable to communicate properly quantity of urine output. Hepatitis panel negative ? Nephrology Dr Brito consulted - had TDC placed -continue HD sessions in patient per nephrology (next session today) ? today will be third inpatient dialysis session, well-tolerated -Renally dose medications #Primary hypertension #Hyperlipidemia BP 190/91, heart rate 85. Patient was endorsing headache. Is on losartan 100 mg daily. Compliant with medications and checks her blood pressure every day ranging 128-140 systolic. ? Resume home antihypertensive ?IV hydralazine 10 mg q6hr PRN for SBP>170, DBP >110, hold if HR >90 - Increase PO hydralazine to 50mg TID -Continue home losartan 100 mg daily -montior BP - Resumed atorvastatin 20 mg daily #Interstitial cystitis Experiences frequent UTIs and frequent use of antibiotics. Currently on medication Elmiron for painful bladder. Urine culture showing contamination. ? Continue to monitor ? Follow-up outpatient #Heart failure with preserved ejection fraction [EF 60 to 65%] Patient currently denies any symptoms of SOB, PND, orthopnea and chest pain. NYHA class III Home medication Lasix 40 Mg p.o. daily. #Insulin-dependent type 2 diabetes mellitus-poorly controlled Glucose on admission 196. Last A1c 8.5 on 04/28/24. Patient takes 50 units degludac daily and 10units lispro TID for diabetes at home. -Held home medications -Bedside blood glucose checks ACHS -luntus 30 qday -Insulin lispro sliding scale -Carb consistent low diet #Anxiety #Depression Resumed home meds sertraline 25 mg daily #Hypertensive urgency-resolved Health maintenance: Dispo: tele, ESRD on new HD. DC to SNF on pending outpatient HD chair FEN: renal, low carb DVT prophylaxis: Subcu heparin CODE STATUS: Full code Patient care was discussed with attending physician Dr. Zara Bernal PGY1
--- NOTE | 2024-09-04 15:19 | PD.RESDS ---
Planned Discharge Date 09/04/24 DS: Providers Provider Date of admission: 08/31/24 16:17 Primary care physician: Collin Herrera PA-C Admitting Provider: Jacinta Zuñiga MD Attending Provider on Admission: Jacinta Zuñiga MD Consults: 08/31/24 15:59 Consult to Nephrology Stat Comment: ESRD Consulting Provider: Radhames Brito 09/03/24 07:31 Referral Discharge Planning Routine Comment: Outpatient dialysis unit 09/03/24 07:32 Referral Discharge Planning Routine Comment: rehab placement 09/03/24 12:48 Referral Adele Routine Comment: pt yazdanism; requesting communion Attending Provider on DC: Jacinta Zuñiga MD Discharging Provider: Jacinta Zuñiga MD DS: Diagnosis Problem List Completed Was Problem List Reviewed/Reconciled?: Yes Hospital Course Hospital Course Hospital course: Reason for hospitalization: new HD patient Alberta Saldivar is 83 yr female with PMH of primary hypertension insulin-dependent diabetes mellitus type 2, CKD stage IV [baseline CR 2.7] follows up with Dr. Brito, chronic interstitial cystitis, chronic normocytic anemia, hyperlipidemia, anxiety and heart failure with preserved ejection fraction [EF 60 to 65%] presenting to ED om 08/31/24 after being sent by nephrology Dr Brito to start inpatient hemodialysis sessions. Initial labs showed BUN 43, creatinine 3.1, GFR 15, glucose 196, other electrolytes within normal limits. She also complained of abdominal pain and dysuria most likely associated with history of cystitis. UA was negative for UTI. Nephrology Dr Brito was consulted and patient admitted for catheter insertion for starting dialysis. She underwent a total of 3 sessions tolerated well. Blood pressure remains slightly elevated in the 160?170 systolic. Home medication losartan was resumed along with starting amlodipine 10 mg daily and p.o. hydralazine 50 mg TID. Patient is now in stable condition and ready for discharge. Recommendations were given as below. Discharge Recommendations: Continue taking losartan 100 mg daily for blood pressure control. We also started amlodipine 5 mg daily, hydralazine 50 mg TID for improved control. Follow-up with PCP in 1-2 weeks for additional dose adjustments. Follow-up with nephrology in 1-2 weeks. Common symptoms you may experience as a new dialysis patient include fatigue, muscle cramps, nausea, headaches. Blood pressures also may occasionally be low. Continue monitoring after discharge. Hospital Diagnoses: #CKD stage IV/V progressed to ESRD #Diabetic nephropathy #Primary hypertension #Hyperlipidemia #Interstitial cystitis #Heart failure with preserved ejection fraction [EF 60 to 65%] #Insulin-dependent type 2 diabetes mellitus-poorly controlled #Anxiety #Depression #Hypertensive urgency The patient's management plan was discussed with my attending physician Dr. Zuñiga. Tennille Bernal MD, PGY-1 Time Spent with Patient Time attestation: Total time spent providing and/or coordinating discharge services: Time spent: Greater than 30 minutes Exam Vital Signs Temp Pulse Resp BP Pulse Ox O2 Del Method O2 Flow Rate 97.5 F 87 18 147/67 H 96 Room Air 2 09/04/24 13:35 09/04/24 14:33 09/04/24 13:35 09/04/24 14:33 09/04/24 13:35 09/04/24 07:51 09/02/24 17:52 Narrative Exam General: Elderly female, No acute distress, appears comfortable HEENT: NCAT, No JVD noted. Mucosa moist. Pupils are equal and reactive to light bilaterally Cardiovascular: Normal S1 and S2. Regular rate and rhythm. Respiratory: Lungs are clear to auscultation bilaterally. No wheezing or crackles heard. Abdomen: Soft, nontender, not distended, normal bowel sounds. Skin: Warm to touch, dry, no rashes noted, right TDC in place, no bleeding Musculoskeletal: No gross injuries. Able to move all 4 extremities. No pitting edema. Neuro: Alert and oriented x3. No focal neuro deficits. Psych: rapid changes in mood Discharge Plan Plan Patient Disposition[facility]) Patient condition on transfer: Stable Care Plan Goals: Continue taking losartan 100 mg daily for blood pressure control. We also started amlodipine 5 mg daily, hydralazine 50 mg TID for improved control. Follow-up with PCP in 1-2 weeks for additional dose adjustments. Follow-up with nephrology in 1-2 weeks. Common symptoms you may experience as a new dialysis patient include fatigue, muscle cramps, nausea, headaches. Blood pressures also may occasionally be low. Continue monitoring after discharge. HD chairtime is scheduled for 09/08/24 1230. Schedule will then be Mondays and Fridays 1310. Prescriptions/Referrals Prescriptions/Med Rec: New hydralazine 25 mg Tablet 50 mg PO TID 30 Days Qty: 180 0RF amlodipine 5 mg Tablet 5 mg PO QDAY 30 Days Qty: 30 0RF Continued loratadine 10 mg tablet 10 mg PO QDAY Patient Comments: TAKE 1 TABLET BY MOUTH EVERY DAY insulin degludec [Tresiba FlexTouch U-200] 200 unit/mL (3 mL) insulin pen 45 unit SUBCUT QDAY losartan 100 mg tablet 100 mg PO DAILY Patient Comments: TAKE 1 TABLET BY MOUTH EVERY DAY sertraline 25 mg tablet 25 mg PO HS Patient Comments: TAKE 1 TABLET BY MOUTH AT BEDTIME oxycodone-acetaminophen [Percocet] 5-325 mg tablet 2 tab PO Q8H MDD 6 PRN (Reason: pain) Qty: 20 0RF atorvastatin 20 mg tablet 20 mg PO HS benzonatate 100 mg capsule 100 mg PO TID Patient Comments: TAKE 1 CAPSULE BY MOUTH TWICE DAILY insulin aspart U-100 [Novolog FlexPen U-100 Insulin] 100 unit/mL (3 mL) insulin pen 6 unit SUBCUT TIDWM Patient Comments: INJECT 10 UNITS UNDER THE SKIN THREE TIMES DAILY WITH MEALS pentosan polysulfate sodium 100 mg capsule 100 mg PO TID Qty: 90 3RF ondansetron HCl 8 mg tablet 8 mg PO Q8H Patient Comments: TAKE 1 TABLET BY MOUTH EVERY 8 HOURS FOR 2 DAYS No Action losartan 50 mg tablet 50 mg PO QDAY Qty: 30 1RF Referrals: Collin Herrera PA-C [Primary Care Provider] - Radhames Brito MD [Physician] - Patient/Caregiver Discharge Instructions Other Discharge Activity Instructions:: Continue taking losartan 100 mg daily for blood pressure control. We also started amlodipine 5 mg daily, hydralazine 50 mg TID for improved control. Follow-up with PCP in 1-2 weeks for additional dose adjustments. Follow-up with nephrology in 1-2 weeks. Common symptoms you may experience as a new dialysis patient include fatigue, muscle cramps, nausea, headaches. Blood pressures also may occasionally be low. Continue monitoring after discharge. Education Materials: Hemodialysis, Hypertension and Kidney Disease, Diabetes and Kidney Disease Print Language: Albanian Stand Alone Forms: Grace Award Info., Patient Portal Info Letter Discharge Order Discharge Orders: Discharge (Routine); Ordered 09/04/24 Ordered By: Tennille Bernal Quality Discharge Quality Measures VTE prophylaxis Attestestation MD Attestation I attest that I was physically present for the evaluation, physical examination, lab and imaging review of the patient with the residents. I discussed the case with the residents and agree with the findings and plans of care as documented above. Jacinta Zuñiga MD
--- NOTE | 2024-09-06 15:18 | CHAP ---
Patient was visited by a Spiritual Care Volunteer on 09/04/2024 between 0930 and 1200 and received comfort, encouragement and/or prayer.
== END 2024-09-04 15:57 | disposition skilled nursing facility (03) | DRG 304 ==
LOC: SERX 16:45 → SERHOLD 16:46 → S3NX 09-01 05:44
PROVIDERS: Internal Medicine; Student in an Organized Health Care Education/Training Program; Admitting Provider Student in an Organized Health Care Education/Training Program; Emergency Provider Emergency Medicine; PCP Physician Assistant; Visit Provider Student in an Organized Health Care Education/Training Program
DX: I16.0 Hypertensive urgency (principal); N18.6 End stage renal disease; I50.32 Chronic diastolic (congestive) heart failure; N30.10 Interstitial cystitis (chronic) without hematuria; N30.20 Other chronic cystitis without hematuria; Z79.4 Long term (current) use of insulin; Z79.899 Other long term (current) drug therapy; Z87.440 Personal history of urinary (tract) infections; E11.22 Type 2 diabetes mellitus with diabetic chronic kidney disease; D63.1 Anemia in chronic kidney disease; E78.5 Hyperlipidemia, unspecified; F32.A Depression, unspecified; F41.9 Anxiety disorder, unspecified; I13.2 Hypertensive heart and chronic kidney disease with heart failure and with stage 5 chronic kidney disease, or end stage renal disease; Z99.2 Dependence on renal dialysis
CPT/HCPCS: 36415; 70450; 71045; 76937; 77001; 80053; 80061; 80069; 80074; 81001; 82248; 83036; 83735; 83880; 84100; 84439; 84443; 84484; 85025; 85610; 85730; 86580; 86850; 86900; 86901; 87081; 87086; 93005; 93225; 94762; 99285; C1750; C1894; J0360; J1642; J1643; J1815; J2405; J3010; J3490; J7050; Q0162; Q5105; A9270; J1920

== ENCOUNTER 2024-09-25 18:46 | Emergency (ER) | payer MEDICARE, MEDICAID, SELFPAY ==
[2024-09-25 18:51] VITALS: BP 206/100; PULSE 78; RESP 18; TEMP 36.3; O2SAT 95
--- NOTE | 2024-09-25 19:03 | EKG_ITS ---
[facility] Test Date: 2024-09-25 Pat Name: TYREE NOLASCO Department: Room: - Gender: Female Consumer Advocate: : 1940 Requested By: Mally Haji Order Number: [id number] Reading MD: Mally Haji Measurements Intervals Perkins Rate: 82 P: 39 UT: 171 QRS: 32 QRSD: 108 T: 248 QT: 402 QTc: 470 Interpretive Statements SINUS RHYTHM WITH SINUS ARRHYTHMIA INCOMPLETE RIGHT BUNDLE BRANCH BLOCK [90+ ms QRS DURATION, TERMINAL R IN V1/V2, 40+ ms S IN I/aVL/V4/V5/V6] ST DEVIATION AND MODERATE T-WAVE ABNORMALITY, CONSIDER INFERIOR ISCHEMIA [-0.1+ mV T-WAVE IN II/aVF] Compared to ECG 08/31/2024 14:35:37 Incomplete right bundle-branch block now present Possible ischemia now present T-wave abnormality still present /store/S0/[id number]/ecg/[id number].pdf
--- NOTE | 2024-09-25 19:07 | EDNOTE_ITS ---
Nausea/Vomit./Diarrhea-RME/HPI General Chief complaint: Syncope / Near Syncope Stated complaint: SYNCOPE Time Seen by Provider: 09/25/24 19:03 Source: patient and EMS Arrival date/time: 09/25/24 18:46 Mode of arrival: EMS RME / HPI RME / HPI Narrative: The history is difficult to obtain. Patient was brought in by EMS after she finished her run of dialysis. She was picked up at the dialysis center for what sounds like a possible syncopal episode. She has nausea and vomiting. Patient has a history of end-stage renal disease and anxiety. She has diabetes and hypertension. Related Data Home Medications ?Medication ?Instructions ?Recorded ?Confirmed loratadine 10 mg tablet 10 mg PO QDAY 04/22/2108/31 insulin degludec 200 unit/mL (3 45 unit subcut QDAY 08/31/24 mL) subcutaneous pen (Tresiba FlexTouch U-200 insulin) atorvastatin 20 mg tablet 20 mg PO HS 03/11/22 5 benzonatate 100 mg capsule 100 mg PO TID 03/11/2208/13 insulin aspart U-100 100 unit/mL 6 unit subcut TIDWM 1 05/12/21 08/31/24 (3 mL) subcutaneous pen (Novolog FlexPen U-100 Insulin aspart) losartan 100 mg tablet 100 mg PO DAILY for BP 04/2708/31/24 sertraline 25 mg tablet 25 mg PO HS 04/28/24 5 ondansetron HCl 8 mg tablet 8 mg PO Q8H 08/31/2408/31 Previous Rx's ?Medication ?Instructions ?Recorded losartan 50 mg tablet 50 mg PO QDAY #30 tabs 05/24 pentosan polysulfate sodium 100 mg 100 mg PO TID #90 c aps 09/21/23 capsule oxycodone-acetaminophen 5 mg-325 2 tab PO Q8H PRN pain #20 tabs 06/04/24 mg tablet (Percocet) amlodipine 5 mg tablet 5 mg PO QDAY 30 days #30 tab s 09/04/24 hydralazine 25 mg tablet 50 mg (2 x 25 mg) PO TID 30 days 09/04/24 #180 tabs Allergies Allergy/AdvReac Type Severity Reaction Status Date / Time amoxicillin Allergy Severe Vomiting Verified 09/01/24 08:23 codeine Allergy Severe PALPITATION Verified 09/01/24 08:23 S diazepam Allergy Severe RAPID Verified 09/01/24 08:23 HEARTRATE hydrocodone Allergy Severe Vomiting Verified 09/01/24 08:23 hydromorphone Allergy Severe Agitated Verified 09/01/24 08:23 ibuprofen Allergy Severe BLEEDING Verified 09/01/24 08:23 IN STOMACH PER PT meperidine Allergy Severe RAPID Verified 09/01/24 08:23 HEARTRATE morphine Allergy Severe RAPID Verified 09/01/24 08:23 HEARTRATE propoxyphene Allergy Severe RAPID Verified 09/01/24 08:23 HEARTRATE adhesive tape AdvReac Severe Hives Verified 08/31/24 14:49 levofloxacin AdvReac Severe VOMITS Verified 09/01/24 08:23 Review of Systems Review of Systems Systems Reviewed: All systems reviewed, normal except as documented Course Course Course Narrative: * Reviewed patient's lab results. She has a mild leukocytosis 11.6k, her hemoglobin is 10.3 and hematocrit is 31.4. * Patient's manager statistical programming, Dr. Brito was contacted. We reviewed patient's lab results including her hypokalemia at 3.0. We advised to provide 40meq of potassium orally. No other intervention from a nephrology standpoint. Quality Measures none Orders Category Date Time Status EKG (ED ONLY) *Do not use* NOW Care 09/25/24 19:03 Completed EKG (ED Only) Stat Exams 09/25/24 19:03 Draft US venous doppler LE LT Stat Exams 09/25/24 20:32 Completed CBC Stat Lab 09/25/24 19:25 Completed CMP [Comprehensive Metabolic Panel] Stat Lab 09/25/24 19:25 Completed UA [Urinalysis] Stat Lab 09/25/24 19:40 Completed Labetalol IV [Trandate IV] Med 09/25/24 19:26 Discontinued 5 mg IVP X1 ONE Ondansetron Inj [Zofran Inj] Med 09/25/24 19:07 Discontinued 4 mg IVP X1 ONE Potassium Chloride [K-Dur] Med 09/25/24 20:36 Discontinued 40 meq PO X1 ONE Vital Signs Vital signs: Vital Signs Temperature 97.4 F 09/25/24 18:51 Pulse Rate 78 09/25/24 18:51 Respiratory Rate 18 09/25/24 18:51 Blood Pressure 206/100 H 09/25/24 18:51 Pulse Oximetry (%) 95 09/25/24 18:51 Oxygen Delivery Method Room Air 09/25/24 18:51 Nausea/Vomiting/Diarrhea MDM Narrative MDM Narrative:: The history is difficult to obtain. Patient was brought in by EMS after she finished her run of dialysis. She was picked up at the dialysis center for what sounds like a possible syncopal episode. She has nausea and vomiting. Patient has a history of end-stage renal disease and anxiety. She has diabetes and hypertension. Labs were obtained and patient was found to have a hypokalemia of 3.0. Her manager statistical programming was contacted and patient was given a dose of oral potassium here. Patient also states she had left lower leg pain. An ultrasound was obtained which ruled out DVT. I do believe the patient be discharged from the ER at this time. Discussed likely anxiety reaction. She may return to the ER anytime for any worsening changes. Patient data External records reviewed:: [facility] previous records and EMS form Clinical information provided by:: patient and family Social determinants that could affect healthcare access:: mental health Patient has the following chronic illnesses:: End-stage renal disease, severe anxiety, hypertension, diabetes How is presenting disease/condition affected by chronic disease/condition?: exacerbated by Evaluation data The following diagnostics were reviewed and interpreted by me:: lab results (CBC is unremarkable. Metabolic panel revealed a hypokalemia at 3.0.), radiology exam(s) (Lower leg Doppler was negative for DVT.) and EKG tracing(s) (Normal sinus rhythm at [address] changes. There are nonspecific T wave changes that are present on EKG dated 08/31/2024.) Lab and/or radiology exams considered but not ordered:: n/a Interpretation Summary: Hypokalemia Medications / Prescriptions Medications / Prescriptions considered but not ordered:: n/a Medication administrations:: Medication Administration History Discontinued Medications Labetalol HCl (Labetalol Inj 5 Mg/Ml Vial 20 Ml) 5 mg IVP X1 ONE Stop: 09/25/24 19:27 Last Admin: 09/25/24 19:34 Dose: 5 mg Documented By: MITRA Ondansetron HCl (Ondansetron Inj 2 Mg/Ml Inj 2 Ml) 4 mg IVP X1 ONE; Protocol Stop: 09/25/24 19:08 Last Admin: 09/25/24 19:35 Dose: 4 mg Documented By: MITRA Potassium Chloride (Potassium Chloride 20 Meq Tabcr) 40 meq PO X1 ONE Stop: 09/25/24 20:37 Last Admin: 09/25/24 20:46 Dose: 40 meq Documented By: JEANNINE See above Consultations Consultation(s) initiated? (list below): No Diagnosis Nausea Differential Diagnosis: drug-induced nausea and vomiting and dehydration Most likely diagnosis given after review of the tests above:: Vasovagal syncope, anxiety reaction, hypokalemia Admission Indicated Admission indicated?: not indicated Admission Request Was there a request for admission?: No Disposition Plan Disposition Plan: Discharge Discharge Attestation Discharge Attestation: The patient and all family members were given an opportunity to ask questions and understood the discharge instructions. Discharge instructions specifically effects, indications for sooner follow up or return to the emergency department, and the expected course of current diagnosis. Patient condition: Stable Discharge Plan Plan Patient Disposition: HOME (Self Care) Patient condition on transfer: Stable Prescriptions/Referrals Prescriptions/Med Rec: No Action loratadine 10 mg tablet 10 mg PO QDAY Patient Comments: TAKE 1 TABLET BY MOUTH EVERY DAY insulin degludec [Tresiba FlexTouch U-200] 200 unit/mL (3 mL) insulin pen 45 unit SUBCUT QDAY losartan 50 mg tablet 50 mg PO QDAY Qty: 30 1RF losartan 100 mg tablet 100 mg PO DAILY Patient Comments: TAKE 1 TABLET BY MOUTH EVERY DAY sertraline 25 mg tablet 25 mg PO HS Patient Comments: TAKE 1 TABLET BY MOUTH AT BEDTIME oxycodone-acetaminophen [Percocet] 5-325 mg tablet 2 tab PO Q8H MDD 6 PRN (Reason: pain) Qty: 20 0RF atorvastatin 20 mg tablet 20 mg PO HS benzonatate 100 mg capsule 100 mg PO TID Patient Comments: TAKE 1 CAPSULE BY MOUTH TWICE DAILY insulin aspart U-100 [Novolog FlexPen U-100 Insulin] 100 unit/mL (3 mL) insulin pen 6 unit SUBCUT TIDWM Patient Comments: INJECT 10 UNITS UNDER THE SKIN THREE TIMES DAILY WITH MEALS pentosan polysulfate sodium 100 mg capsule 100 mg PO TID Qty: 90 3RF ondansetron HCl 8 mg tablet 8 mg PO Q8H Patient Comments: TAKE 1 TABLET BY MOUTH EVERY 8 HOURS FOR 2 DAYS hydralazine 25 mg Tablet 50 mg PO TID 30 Days Qty: 180 0RF amlodipine 5 mg Tablet 5 mg PO QDAY 30 Days Qty: 30 0RF Referrals: Collin Herrera PA-C [Primary Care Provider] - In 1 week Problem List Clinical Impression: Acute hypokalemia, End stage chronic kidney disease Patient/Caregiver Discharge Instructions Education Materials: Hypertension and Kidney Disease, CKD Dc Additional Instructions: - Continue your current medications. - Continue dialysis as planned. - Return here as needed for any worsening or emergent changes. Print Language: French Stand Alone Forms: Grace Award Info., Patient Portal Info Letter
[2024-09-25 19:17] VITALS: BP 204/82; PULSE 75; PULSE 82; RESP 16; TEMP 36.4; O2SAT 93; O2SAT 98
[2024-09-25 19:25] VITALS: BMI 29.2
[2024-09-25 19:34] VITALS: BP 204/82; PULSE 75
[2024-09-25] MEDS: LABETALOL INJ 5 MG/ML VIAL 20 ML IVP (19:34)
[2024-09-25] MEDS: ONDANSETRON INJ 2 MG/ML INJ 2 ML 4 MG IVP (19:35)
[2024-09-25 19:51] LABS: Collection Type, Urine Voided
[2024-09-25 19:55] LABS: Basophils # (Auto) 0.1 Thou/mm3 (0.0-0.2); Basophils % (Auto) 1 % (0-2.5); Eosinophils # (Auto) 0.1 Thou/mm3 (0.0-0.5); Eosinophils % (Auto) 1 % (0-10); Hematocrit 31.4 % (36.0-46.0); Hemoglobin 10.3 g/dL (12.0-16.0); Immature Granulocytes Auto 0.25 Thou/mm3 (0.00-0.00); Lymphocytes # (Auto) 3.2 Thou/mm3 (1.0-4.8); Lymphocytes % (Auto) 27 % (10-50); Mean Corpuscular HGB Conc 32.8 g/dl (31.0-37.0); Mean Corpuscular Hemoglobin 29.7 pg (25.0-35.0); Mean Corpuscular Volume 91 fL (80-100); Monocytes # (Auto) 0.6 Thou/mm3 (0.0-0.8); Monocytes % (Auto) 5 % (0-12); Neutrophils # (Auto) 7.4 Thou/mm3 (1.8-7.7); Neutrophils % (Auto) 64 % (37-80); Nucleated Red Blood Cell # 0.00 Thou/mm3 (0.00-0.00); Nucleated Red Blood Cell % 0 /100 WBC (0); Platelet Count 315 Thou/mm3 (140-440); RDW Standard Deviation 44.4 fL (36.4-46.3); Red Blood Count 3.47 Miln/mm3 (4.00-5.20); White Blood Count 11.6 Thou/mm3 (3.6-11.0)
[2024-09-25 20:05] LABS: Amorphous Crystals,Urine Present (Absent); Bacteria,Urine 3+; Bilirubin,Urine Negative (Negative); Blood,Urine 1+ (Negative); Clarity,Urine Turbid (Clear/Hazy); Color,Urine Yellow (Lt Yel-Yel); Glucose, Urine 1+ (Negative); Hyaline Casts,Urine < 1 /hpf (0-1); Ketones,Urine Negative (Negative); Leukocyte Esterase,Urine Positive (Negative); Nitrite,Urine Negative (Negative); PH,Urine 8.0 (5.0-7.0); Protein,Urine 2+ (Neg - Trace); RBC,Urine 3 /hpf (0-3); Specific Gravity,Urine 1.006 (1.001-1.035); Squamous Epithelial Cell,Urine 1 /hpf (0-5); Urobilinogen,Urine Negative mg/dL (0.0-1.0); WBC,Urine 176 /hpf (0-5)
[2024-09-25 20:24] LABS: Alanine Aminotransferase 16 U/L (10-49); Albumin, Serum 4.0 gm/dL (3.4-4.8); Albumin/Globulin Ratio 1.4 (1.2-2.2); Alkaline Phosphatase 164 U/L (46-116); Anion Gap 10 (7-16); Aspartate Amino Transferase 24 U/L (0-34); BUN/Creatinine Ratio 8 Ratio (12-20); Bilirubin,Total 0.3 mg/dL (0.3-1.2); Blood Urea Nitrogen 14 mg/dL (9-23); Calcium 8.4 mg/dL (8.3-10.6); Calcium (Corrected) 8.4 mg/dL (8.5-10.1); Carbon Dioxide 30.7 mMol/L (20.0-31.0); Chloride 97 mMol/L (98-107); Creatinine (Component) 1.8 mg/dL (0.6-1.3); Estimated Creatinine Clearance 24.6 mL/min (>60); Globulin 2.9 gm/dL (2.3-3.5); Glucose 145 mg/dL (74-106); Osmolality,Calculated 279 (275-295); Potassium 3.0 mMol/L (3.4-5.1); Sodium 138 mMol/L (136-145); Total Protein 6.9 gm/dL (5.7-8.2); eGFR 28 See Note
--- NOTE | 2024-09-25 20:32 | XR_ITS ---
Examination: Duplex scan of the lower extremity, unilateral left complete Date and time of exam: September 25, 2024 at 2050 hours INDICATIONS: Left leg swelling today Technique: Duplex scan of the extremity veins using B-mode/grayscale imaging and Doppler spectral analysis and color flow Attention is directed to internal echogenicity, compression and augmentation involving these veins, color flow assessment, spectral analysis Findings: Major deep venous structures in the extremity demonstrate normal course and caliber. There is no evidence of deep vein thrombosis. Normal color flow and spectral analysis Impression: Negative for DVT..
[2024-09-25 22:00] VITALS: BP 170/83; PULSE 74; RESP 17; TEMP 36.6; O2SAT 91
--- NOTE | 2024-09-25 23:33 | PC.NURSE ---
CALLED [facility] FOR REPORT SPOKE TO EVANGELIST LIRA.
== END 2024-09-25 23:32 | disposition home or self-care (01) ==
PROVIDERS: Physician Assistant Medical; Emergency Provider Emergency Medicine; PCP Physician Assistant
DX: E87.6 Hypokalemia (principal); N18.6 End stage renal disease; E11.22 Type 2 diabetes mellitus with diabetic chronic kidney disease; I12.0 Hypertensive chronic kidney disease with stage 5 chronic kidney disease or end stage renal disease; Z99.2 Dependence on renal dialysis; I45.10 Unspecified right bundle-branch block
CPT/HCPCS: 36415; 80053; 81001; 85025; 93005; 93971; 96374; 96375; 99283; J2405; J3490; A9270; J1920

== ENCOUNTER 2024-10-18 16:13 | Emergency (ER) | payer MEDICARE, MEDICAID, SELFPAY ==
[2024-10-18 16:27] VITALS: BP 174/99; PULSE 94; RESP 18; TEMP 36.9; O2SAT 96
[2024-10-18 16:28] VITALS: BMI 31.5
--- NOTE | 2024-10-18 16:36 | PD.EDRME ---
Rapid Medical Screening Exam RME Arrival date/time: 10/18/24 16:13 Chief Complaint: Flu Like Symptoms Vital signs: Vital Signs Temperature 98.4 F 10/18/24 16:27 Pulse Rate 94 10/18/24 16:27 Respiratory Rate 18 10/18/24 16:27 Blood Pressure 174/99 H 10/18/24 16:27 Pulse Oximetry (%) 96 10/18/24 16:27 Oxygen Delivery Method Room Air 10/18/24 16:27 Pulse ox is 96% room air Vital signs reviewed by provider: Yes [facility] Narrative: 83-year-old female presents to the urgent care with complaint of flulike symptoms to include wheezing, nausea with vomiting and diarrhea that began 2 days ago. Also complains of intermittent fever.
--- NOTE | 2024-10-18 16:37 | XR_ITS ---
Examination: AP chest single view Technique upright AP chest single view Date and time: October 18, 2024 1654 hours Comparison August 31, 2024 INDICATIONS: Wheezing vomiting shortness of the chest pain beginning 2 days ago. FINDINGS: Normal heart size Ectatic thoracic aorta. Right internal jugular dialysis catheter tip satisfactory position. No pneumonia or pulmonary edema IMPRESSION: No pneumonia or pulmonary edema
[2024-10-18 17:12] LABS: Basophils # (Auto) 0.1 Thou/mm3 (0.0-0.2); Basophils % (Auto) 1 % (0-2.5); Eosinophils # (Auto) 0.1 Thou/mm3 (0.0-0.5); Eosinophils % (Auto) 1 % (0-10); Hematocrit 35.3 % (36.0-46.0); Hemoglobin 11.2 g/dL (12.0-16.0); Immature Granulocytes Auto 0.11 Thou/mm3 (0.00-0.00); Lymphocytes # (Auto) 2.6 Thou/mm3 (1.0-4.8); Lymphocytes % (Auto) 21 % (10-50); Mean Corpuscular HGB Conc 31.7 g/dl (31.0-37.0); Mean Corpuscular Hemoglobin 29.2 pg (25.0-35.0); Mean Corpuscular Volume 92 fL (80-100); Monocytes # (Auto) 0.7 Thou/mm3 (0.0-0.8); Monocytes % (Auto) 5 % (0-12); Neutrophils # (Auto) 8.6 Thou/mm3 (1.8-7.7); Neutrophils % (Auto) 71 % (37-80); Nucleated Red Blood Cell # 0.00 Thou/mm3 (0.00-0.00); Nucleated Red Blood Cell % 0 /100 WBC (0); Platelet Count 271 Thou/mm3 (140-440); RDW Standard Deviation 47.8 fL (36.4-46.3); Red Blood Count 3.83 Miln/mm3 (4.00-5.20); White Blood Count 12.2 Thou/mm3 (3.6-11.0)
[2024-10-18 17:23] LABS: Collection Type, Urine Clean Catch
[2024-10-18 17:29] LABS: Alanine Aminotransferase 10 U/L (10-49); Albumin, Serum 4.0 gm/dL (3.4-4.8); Albumin/Globulin Ratio 1.6 (1.2-2.2); Alkaline Phosphatase 178 U/L (46-116); Anion Gap 9 (7-16); Aspartate Amino Transferase 13 U/L (0-34); BUN/Creatinine Ratio 10 Ratio (12-20); Bilirubin,Total 0.2 mg/dL (0.3-1.2); Blood Urea Nitrogen 29 mg/dL (9-23); Calcium 8.7 mg/dL (8.3-10.6); Calcium (Corrected) 8.7 mg/dL (8.5-10.1); Carbon Dioxide 28.5 mMol/L (20.0-31.0); Chloride 100 mMol/L (98-107); Creatinine (Component) 2.9 mg/dL (0.6-1.3); Estimated Creatinine Clearance 14.2 mL/min (>60); Globulin 2.5 gm/dL (2.3-3.5); Glucose 244 mg/dL (74-106); LDH (Lactate Dehydrogenase) 224 U/L (120-246); Lipase 32 U/L (12-53); Osmolality,Calculated 287 (275-295); Potassium 4.5 mMol/L (3.4-5.1); Sodium 137 mMol/L (136-145); Total Protein 6.5 gm/dL (5.7-8.2); eGFR 16 See Note
[2024-10-18 17:31] LABS: Bacteria,Urine Rare; Bilirubin,Urine Negative (Negative); Blood,Urine 1+ (Negative); Color,Urine Lt-Yellow (Lt Yel-Yel); Glucose, Urine 2+ (Negative); Ketones,Urine Negative (Negative); Leukocyte Esterase,Urine Positive (Negative); Nitrite,Urine Negative (Negative); PH,Urine 6.5 (5.0-7.0); Protein,Urine 3+ (Neg - Trace); RBC,Urine 3 /hpf (0-3); Specific Gravity,Urine 1.015 (1.001-1.035); Squamous Epithelial Cell,Urine 2 /hpf (0-5); Urobilinogen,Urine Negative mg/dL (0.0-1.0); WBC,Urine 18 /hpf (0-5)
[2024-10-18 17:58] LABS: Clarity,Urine Hazy (Clear/Hazy)
--- NOTE | 2024-10-18 19:13 | PD.EDURI ---
Upper Respiratory Inf. RME/HPI General Chief Complaint: Flu Like Symptoms Stated Complaint: SOB, COUGH, CONGESTION, N/V, DIARRHEA Time Seen by Provider: 10/18/24 18:06 Arrival date/time: 10/18/24 16:13 RME / HPI RME / HPI Narrative: 83-year-old female presents to the urgent care with complaint of flulike symptoms to include wheezing, nausea with vomiting and diarrhea that began 2 days ago. Also complains of intermittent fever. This section includes all my notes and documentations, including HPI, PE, and ED course. Henry Dillard MD HPI: 83 y/o female with Hx of COPD, CHF, and Renal Disease on Dialysis presents with several days of worsening non-productive cough, shortness of breath, subjective fever, and chills. Patient undergoes dialysis on Mondays and Fridays. No other complaints. ROS: All negative except as documented in HPI. Physical Exam: General: Alert and oriented. Occasional coughing noted. High BP noted. Eyes: Conjunctivae and lids clear. ENT: No nasal congestion. Neck: Supple. Heart: RRR. Lungs: No respiratory distress. Mildly decreased air movement with rhonchi. Abdomen: Soft and nontender. Normal bowel sounds. No distension. No rebound or guarding. Back: No CVA tenderness. Skin: Warm and dry. Neuro: Alert and oriented X 3. I reviewed all diagnostic test results: My interpretation of the EKG is: Sinus rhythm (83 bpm) with nonspecific ST-T changes. My interpretation of the chest x-ray is: NAD. Blood tests remarkable for WBC 12.2. UA showed positive leukocyte esterase, 18 WBC, and bacteria. Covid/Influenza: Negative. At this point, diagnoses include: UTI, Bronchitis. I ordered metoprolol, clonidine, losartan, hydralazine, Solu-Medrol, DuoNeb, and Rocephin. Patient declined many diagnostic tests and treatments, including chest CT and clonidine and losartan and hydralazine and Solu-Medrol and DuoNeb. Discussed potential risks, including missing serious conditions and subpar treatments leading to serious and even potential fatal conditions. Patient understood but still declined. We couldn't change her mind. Patient requested discharge. Declined hospitalization. Discussed potential risks, including sudden . We couldn't change her mind. Based on my best medical judgment, made decision no further evaluation or treatment indicated at this time. Patient understands and agrees to the discharge instructions customized and printed, see below. Discharge instructions from Dr. Dillard: --Unfortunately, we weren't able to complete our full evaluation/treatment. Because you declined diagnostic tests and different treatments. Including CT scans and BP medications and medications to open up your airways. --Your diagnoses include UTI and bronchitis. See attached handouts. --No physical exertion for 3 days to help rest the lungs. ?No smoking or exposure to smoking or pets or dust or humidity. --Zithromax and cefdinir to kill the germs causing the bronchitis and UTI. --Albuterol 2 puffs every 4-6 hours for 3 days to help keep the airways open. Then as needed for cough or shortness of breath. --See a private doctor on 10/20/2024 for recheck and further care. Ask to review all test results and official radiology reports, to make sure you receive all necessary follow-ups and monitoring. Ask for help until you are completely better. --Seek immediate medical care with worsening or with any concerns. Henry Dillard MD Related Data Home Medications ?Medication ?Instructions ?Recorded ?Confirmed loratadine 10 mg tablet 10 mg PO QDAY 04/22/21 08/31/24 insulin degludec 200 unit/mL (3 45 unit subcut QDAY 08/12/21 08/31/24 mL) subcutaneous pen (Tresiba FlexTouch U-200 insulin) atorvastatin 20 mg tablet 20 mg PO HS 03/11/22 08/31/24 benzonatate 100 mg capsule 100 mg PO TID 03/11/22 08/31/24 insulin aspart U-100 100 unit/mL 6 unit subcut TIDWM 03/11/22 08/31/24 (3 mL) subcutaneous pen (Novolog FlexPen U-100 Insulin aspart) losartan 100 mg tablet 100 mg PO DAILY for BP 04/27/24 08/31/24 sertraline 25 mg tablet 25 mg PO HS 04/28/24 08/31/24 ondansetron HCl 8 mg tablet 8 mg PO Q8H 08/31/24 08/31/24 Previous Rx's ?Medication ?Instructions ?Recorded losartan 50 mg tablet 50 mg PO QDAY #30 tabs 05/25/23 pentosan polysulfate sodium 100 mg 100 mg PO TID #90 caps 09/21/23 capsule oxycodone-acetaminophen 5 mg-325 2 tab PO Q8H PRN pain #20 tabs 06/04/24 mg tablet (Percocet) albuterol sulfate 90 mcg/actuation 2 puff inhalation Q6H PRN 10/19/24 aerosol inhaler shortness of breath or wheezing #8.5 grams azithromycin 500 mg tablet 500 mg PO QDAY 3 days #3 tabs 10/19/24 (Zithromax TRI-PATRICIA) cefdinir 300 mg capsule 300 mg PO BID #14 caps 10/19/24 Allergies Allergy/AdvReac Type Severity Reaction Status Date / Time amoxicillin Allergy Severe Vomiting Verified 09/01/24 08:23 codeine Allergy Severe PALPITATION Verified 09/01/24 08:23 S diazepam Allergy Severe RAPID Verified 09/01/24 08:23 HEARTRATE hydrocodone Allergy Severe Vomiting Verified 09/01/24 08:23 hydromorphone Allergy Severe Agitated Verified 09/01/24 08:23 ibuprofen Allergy Severe BLEEDING Verified 09/01/24 08:23 IN STOMACH PER PT meperidine Allergy Severe RAPID Verified 09/01/24 08:23 HEARTRATE morphine Allergy Severe RAPID Verified 09/01/24 08:23 HEARTRATE propoxyphene Allergy Severe RAPID Verified 09/01/24 08:23 HEARTRATE adhesive tape AdvReac Severe Hives Verified 08/31/24 14:49 levofloxacin AdvReac Severe VOMITS Verified 09/01/24 08:23 Review of Systems Review of Systems Systems Reviewed: All systems reviewed, normal except as documented Past Medical History Past Medical History NEUROLOGIC: Positive Traumatic Brain Injury CARDIAC: Positive Cardiac Disorders, Myocardial Infarction, Angina, Hypercholesterolemia, Congestive Heart Failure, Edema, Deep Vein Thrombosis and Hypertension RESPIRATORY: Positive Chronic Obstructive Pulmonary Disease (COPD), Asthma, Bronchitis and Pneumonia GASTROINTESTINAL: Positive Gastrointestinal Disorders, Gastroesophageal Reflux Disease and Obesity GENITOURINARY: Positive Genitourinary Disorders and Renal Disease REPRODUCTIVE: Positive Previous Pregnancies MUSCULOSKELETAL: Positive Musculoskeletal Disorders and Arthritis ENDOCRINE: Positive Endocrine Disorders and Diabetes Mellitus Type 2 HEMATOLOGIC: Positive Blood Disorders and Anemia PSYCHO/SOCIAL: Positive Anxiety OTHER HISTORY: Positive Hospitalization, Blood Transfusions, Chicken Pox, Measles and Mumps Family History FAMILY HISTORY: Positive Family Respiratory Disorders, Family Cardiac Disorders and Family Cancer Surgical History SURGICAL: Positive Angiogram, Abdominal Surgery, Joint Replacement and Hysterectomy ED Exam Narrative Physical exam: Refer to HPI Course Course Course Narrative: CXR is ordered for determining the etiology of shortness of breath. Quality Measures none Orders Category Date Time Status Bedside COVID-19 Antigen Test NOW Care 10/18/24 18:45 Completed Bedside Influenza A&B Antigen Test NOW Care 10/18/24 18:[address] Screening NOW Care 10/18/24 21:10 Completed EKG (ED ONLY) *Do not use* NOW Care 10/18/24 19:19 Completed Saline [Insert IV] NOW Care 10/18/24 19:17 Completed Straight [In and Out Catheter] X1 Care 10/18/24 19:[address] chest wo con Stat Exams 10/18/24 21:20 Ordered CXR2 [XR chest 2V] Stat Exams 10/18/24 16:37 Completed EKG (ED Only) Stat Exams 10/18/24 19:19 Draft BNP [B-Type Natriuretic Peptide] Stat Lab 10/18/24 16:42 Completed Blood Culture (Lab) Stat Lab 10/18/24 20:04 Received CBC Stat Lab 10/18/24 16:42 Completed CRP [C-Reactive Protein] Stat Lab 10/18/24 20:04 Completed Comprehensive Metabolic Panel Stat Lab 10/18/24 16:42 Completed D-Dimer Stat Lab 10/18/24 16:42 Completed LDH (Lactate Dehydrogenase) Stat Lab 10/18/24 16:42 Completed Lactate (Lactic Acid) Stat Lab 10/18/24 20:04 Completed Lipase Stat Lab 10/18/24 16:42 Completed Magnesium Stat Lab 10/18/24 20:04 Completed PT [Prothrombin Time with INR] Stat Lab 10/18/24 20:04 Completed PTT [Partial Thromboplastin Time] Stat Lab 10/18/24 20:04 Completed Procalcitonin Stat Lab 10/18/24 20:04 Completed Prolactin* Stat Lab 10/18/24 16:42 Stop Req Sed Rate (ESR) Stat Lab 10/18/24 16:42 Completed TSH [Thyroid Stimulating Hormone] Stat Lab 10/18/24 20:04 Completed Troponin I Stat Lab 10/18/24 20:04 Completed Urinalysis Stat Lab 10/18/24 17:17 Completed Albuterol/Ipratr Rt Mary [Duoneb Rt Mary] Med 10/18/24 19:18 Discontinued 3 ml INH X1 ONE Losartan [Cozaar] Med 10/18/24 22:01 Discontinued 25 mg PO X1 ONE MethylPREDNISolone.* [SoluMEDROL Inj] Med 10/18/24 19:18 Discontinued 125 mg IVP X1 ONE Metoprolol Tartrate [Lopressor] Med 10/18/24 20:32 Discontinued 25 mg PO X1 ONE Metoprolol Tartrate [Lopressor] Med 10/18/24 20:00 Discontinued 50 mg PO X1 ONE cefTRIAXone/D5w 1gm IV premix [Rocephin/D5w 1gm IV Med 10/18/24 19:18 Discontinued premix] 1 gm in 50 ml IV X1 cloNIDine HCL [Catapres] Med 10/18/24 20:32 Discontinued 0.1 mg PO X1 ONE cloNIDine HCL [Catapres] Med 10/18/24 20:00 Discontinued 0.4 mg PO X1 ONE hydrALAZINE INJ [Apresoline Inj] Med 10/18/24 22:01 Discontinued 10 mg IVP X1 ONE Vital Signs Vital signs: Vital Signs Temperature 98.4 F 10/18/24 16:27 Pulse Rate 94 10/18/24 16:27 Respiratory Rate 18 10/18/24 16:27 Blood Pressure 174/99 H 10/18/24 16:27 Pulse Oximetry (%) 96 10/18/24 16:27 Oxygen Delivery Method Room Air 10/18/24 16:27 Upper Respiratory Infection MDM Narrative MDM Narrative:: Scribe Attestation: Hayley Rooney am scribing for and in the presence of Dr. Dillard. Provider Notation: Although this document has been carefully reviewed, there may still be some phonetic and other typographical errors.? These errors are purely grammatical due to imperfections in the software program and should not be construed in any way to? compromise the substance of the patient's medical care during this visit. 83 y/o female with Hx of COPD, CHF, and Renal Disease with Dialysis presents with several days of worsening non-productive cough, shortness of breath, fever, and chills. Patient undergoes dialysis on Mondays and Fridays. No other complaints. Patient data External records reviewed:: [facility] previous records (Reviewed prior ED records available for 09/25/24. Patient was seen for Acute hypokalemia.) Clinical information provided by:: patient Social determinants that could affect healthcare access:: none Patient has the following chronic illnesses:: Angina, Hypercholesterolemia, Congestive Heart Failure, Edema, Deep Vein Thrombosis, Hypertension, Chronic Obstructive Pulmonary Disease (COPD), Asthma, Gastroesophageal Reflux Disease, Obesity, Renal Disease, Arthritis, Diabetes Mellitus Type 2, Anemia How is presenting disease/condition affected by chronic disease/condition?: exacerbated by Evaluation data The following diagnostics were reviewed and interpreted by me:: lab results, radiology exam(s) and EKG tracing(s) (My interpretation of the EKG is: Sinus rhythm (83 bpm) with nonspecific ST-T changes. Henry Dillard MD) Lab and/or radiology exams considered but not ordered:: None Interpretation Summary: I reviewed all diagnostic test results: My interpretation of the EKG is: Sinus rhythm (83 bpm) with nonspecific ST-T changes. My interpretation of the chest x-ray is: NAD. Blood tests remarkable for WBC 12.2. UA showed positive leukocyte esterase, 18 WBC, and bacteria. Covid/Influenza: Negative. At this point, diagnoses include: UTI, Bronchitis. I ordered metoprolol, clonidine, losartan, hydralazine, Solu-Medrol, DuoNeb, and Rocephin. Patient declined many diagnostic tests and treatments, including chest CT and clonidine and losartan and hydralazine and Solu-Medrol and DuoNeb. Discussed potential risks, including missing serious conditions and subpar treatments leading to serious and even potential fatal conditions. Patient understood but still declined. We couldn't change her mind. Patient requested discharge. Declined hospitalization. Discussed potential risks, including sudden . We couldn't change her mind. Medications / Prescriptions Medications or Prescriptions considered but not ordered:: None Medication administrations:: Medication Administration History Discontinued Medications Albuterol/Ipratropium (Albuterol/Ipratropium (Duoneb) Rt Mary 3 Ml Nebu) 3 ml INH X1 ONE Stop: 10/18/24 19:19 Last Admin: 10/18/24 19:53 Dose: 3 ml Documented By: YULIANA Clonidine (Clonidine Hcl 0.1 Mg Tablet) 0.4 mg PO X1 ONE Stop: 10/18/24 20:01 Last Admin: 10/18/24 20:24 Dose: Not Given Documented By: DT Non-Admin Reason: Patient Refused Comments: per patient and family she cant have that she passes out Clonidine (Clonidine Hcl 0.1 Mg Tablet) 0.1 mg PO X1 ONE Stop: 10/18/24 20:33 Last Admin: 10/18/24 21:02 Dose: Not Given Documented By: DT Non-Admin Reason: Patient Refused Hydralazine HCl (Hydralazine Inj 20 Mg/Ml Vial) 10 mg IVP X1 ONE Stop: 10/18/24 22:02 Last Admin: 10/18/24 22:16 Dose: Not Given Documented By: DT Non-Admin Reason: Patient Refused Ceftriaxone Sodium/Dextrose (Rocephin/D5w 1gm Iv Premix) 1 gm in 50 mls @ 100 mls/hr IV X1 ONE Stop: 10/18/24 19:47 Last Infusion: 10/18/24 21:02 Dose: Infused Documented By: Admin: 10/18/24 19:57 Dose: 100 mls/hr Documented By: DT Losartan Potassium (Losartan Potassium 25 Mg Tablet) 25 mg PO X1 ONE Stop: 10/18/24 22:02 Last Admin: 10/18/24 22:15 Dose: 25 mg Documented By: DT Methylprednisolone Sodium Succinate (Methylprednisolone Sod Succ 62.5 Mg/Ml 2ml Vial) 125 mg IVP X1 ONE Stop: 10/18/24 19:19 Last Admin: 10/18/24 19:58 Dose: Not Given Documented By: DT Non-Admin Reason: Patient Refused Metoprolol Tartrate (Metoprolol Tartrate 25 Mg Tablet) 50 mg PO X1 ONE Stop: 10/18/24 20:01 Last Admin: 10/18/24 20:35 Dose: Not Given Documented By: DT Non-Admin Reason: Patient Refused Metoprolol Tartrate (Metoprolol Tartrate 25 Mg Tablet) 25 mg PO X1 ONE Stop: 10/18/24 20:33 Last Admin: 10/18/24 21:01 Dose: 25 mg Documented By: DT I ordered metoprolol, clonidine, losartan, hydralazine, Solu-Medrol, DuoNeb, and Rocephin. Patient declined many diagnostic tests and treatments, including chest CT and clonidine and losartan and hydralazine and Solu-Medrol and DuoNeb. Discussed potential risks, including missing serious conditions and subpar treatments leading to serious and even potential fatal conditions. Patient understood but still declined. We couldn't change her mind. Patient requested discharge. Declined hospitalization. Discussed potential risks, including sudden . We couldn't change her mind. Consultations Consultation(s) initiated? (list below): No Diagnosis Upper Respiratory Differential Diagnosis: upper respiratory infection, viral infection, bronchitis, influenza, pharyngitis and other (Sepsis) Most likely diagnosis given after review of the tests above:: UTI, Bronchitis Admission Indicated Admission indicated?: not indicated Explain why admission is indicated or not indicated:: Patient requested discharge. Declined hospitalization. Discussed potential risks, including sudden . We couldn't change her mind. Admission Request Was there a request for admission?: No Disposition Plan Disposition Plan: Discharge Discharge Attestation Discharge Attestation: The patient and all family members were given an opportunity to ask questions and understood the discharge instructions. Discharge instructions specifically effects, indications for sooner follow up or return to the emergency department, and the expected course of current diagnosis. Patient condition: Stable Discharge Plan Plan Patient Disposition: HOME (Self Care) Prescriptions/Referrals Prescriptions/Med Rec: New albuterol sulfate 90 mcg/actuation HFA aerosol inhaler 2 puff inhalation Q6H PRN (Reason: shortness of breath or wheezing) Qty: 8.5 0RF cefdinir 300 mg capsule 300 mg PO BID Qty: 14 0RF azithromycin [Zithromax TRI-PATRICIA] 500 mg tablet 500 mg PO QDAY 3 Days Qty: 3 0RF No Action loratadine 10 mg tablet 10 mg PO QDAY Patient Comments: TAKE 1 TABLET BY MOUTH EVERY DAY insulin degludec [Tresiba FlexTouch U-200] 200 unit/mL (3 mL) insulin pen 45 unit SUBCUT QDAY losartan 50 mg tablet 50 mg PO QDAY Qty: 30 1RF losartan 100 mg tablet 100 mg PO DAILY Patient Comments: TAKE 1 TABLET BY MOUTH EVERY DAY sertraline 25 mg tablet 25 mg PO HS Patient Comments: TAKE 1 TABLET BY MOUTH AT BEDTIME oxycodone-acetaminophen [Percocet] 5-325 mg tablet 2 tab PO Q8H MDD 6 PRN (Reason: pain) Qty: 20 0RF atorvastatin 20 mg tablet 20 mg PO HS benzonatate 100 mg capsule 100 mg PO TID Patient Comments: TAKE 1 CAPSULE BY MOUTH TWICE DAILY insulin aspart U-100 [Novolog FlexPen U-100 Insulin] 100 unit/mL (3 mL) insulin pen 6 unit SUBCUT TIDWM Patient Comments: INJECT 10 UNITS UNDER THE SKIN THREE TIMES DAILY WITH MEALS pentosan polysulfate sodium 100 mg capsule 100 mg PO TID Qty: 90 3RF ondansetron HCl 8 mg tablet 8 mg PO Q8H Patient Comments: TAKE 1 TABLET BY MOUTH EVERY 8 HOURS FOR 2 DAYS Referrals: Collin Herrera PA-C [Primary Care Provider] - In 1 week Problem List Clinical Impression: UTI (urinary tract infection), Bronchitis Patient/Caregiver Discharge Instructions Discharge Activity: activity as tolerated Education Materials: ED Bronchitis with Wheezing (Adult), ED CYSTITIS Female Adult Additional Instructions: Discharge instructions from Dr. Dillard: --Unfortunately, we weren't able to complete our full evaluation/treatment. Because you declined diagnostic tests and different treatments. Including CT scans and BP medications and medications to open up your airways. --Your diagnoses include UTI and bronchitis. See attached handouts. --No physical exertion for 3 days to help rest the lungs. ?No smoking or exposure to smoking or pets or dust or humidity. --Zithromax and cefdinir to kill the germs causing the bronchitis and UTI. --Albuterol 2 puffs every 4-6 hours for 3 days to help keep the airways open. Then as needed for cough or shortness of breath. --See a private doctor on 10/20/2024 for recheck and further care. Ask to review all test results and official radiology reports, to make sure you receive all necessary follow-ups and monitoring. Ask for help until you are completely better. --Seek immediate medical care with worsening or with any concerns. Print Language: Ghanaian Stand Alone Forms: [facility] Award Info., Patient Portal Info Letter
--- NOTE | 2024-10-18 19:19 | EKG_ITS ---
[facility] Test Date: 2024-10-18 Pat Name: TYREE NOLASCO Department: Room: - Gender: Female Reference Test Clerk: : 1940 Requested By: Henry Monroe Order Number: [id number] Reading MD: Henry Monroe Measurements Intervals [place] Rate: 83 P: 34 NH: 170 QRS: 18 QRSD: 92 T: 42 QT: 367 QTc: 432 Interpretive Statements SINUS RHYTHM WITH SINUS ARRHYTHMIA NONSPECIFIC T-WAVE ABNORMALITY Compared to ECG 09/25/2024 19:20:50 Incomplete right bundle-branch block no longer present Possible ischemia no longer present T-wave abnormality still present /store/S0/[id number]/[id number].pdf
[2024-10-18 19:34] VITALS: BP 216/105; PULSE 89; RESP 19; TEMP 36.8; O2SAT 95
[2024-10-18] MEDS: ALBUTEROL/IPRATROPIUM (Duoneb) RT SOL 3 ML NEBU INH (19:53)
[2024-10-18] MEDS: cefTRIAXone/D5w 1gm IV premix 1 GM/50 ML BAG IV (19:57)
[2024-10-18 20:21] LABS: Lactate (Lactic Acid) 0.8 mMol/L (0.4-2.0)
[2024-10-18 20:22] LABS: Sed Rate (ESR) 54 mm/hr (0-30)
--- NOTE | 2024-10-18 20:33 | PC.NURSE ---
THIS RN SPOKE WITH DAUGHTER ON THE PATIENT CELL PHONE. PER DAUGHTER PATIENT WHEN SHE TAKES CLONIDINE SHE PASSES OUT . DR. CONWAY INFORMED OF CONVERSATION. DR CONWAY AT BEDSIDE SPEAKING WITH PATIENT. PATIENT VERBALLY AGREED TO TAKE A LOWER DOSE OF CLONIDINE AND METOPROLOL TO PREVENT STROKE WITH A PRESSURE OF 195/101.
[2024-10-18 20:41] LABS: INR 1.0 (0.9-1.3); Partial Thromboplastin Time 33.1 Seconds (22.0-36.0); Prothrombin Time 11.1 Seconds (9.0-12.2)
[2024-10-18 20:42] LABS: D-Dimer 1050 ng/mL (<600)
[2024-10-18 21:01] VITALS: BP 205/79; PULSE 84
[2024-10-18] MEDS: METOPROLOL TARTRATE 25 MG TABLET PO (21:01)
--- NOTE | 2024-10-18 21:03 | PC.NURSE ---
THIS RN SPOKE WITH АЛЕКСАНДР BRITNI ON THE PHONE AND PATIENT AT BEDSIDE REGARDING PATIENT REFUSING [facility] SY[facility]OL[facility] IN THE 200'S. BOTH PATIENT AND DAUGHTER BRITNI VERBALLY AGREED TO UNDERSTANDING THE RISKS OF THE PATIENT REFUSING BLOOD PRESSURE MEDICATIONS AND WILL BE REINFORMED. PATIENT REQUESTING LOSARTAN. THIS RN INFORMED DR CONWAY OF CONVERSATION.
[2024-10-18 21:11] VITALS: BP 205/79; PULSE 70; RESP 14; TEMP 37; O2SAT 99
--- NOTE | 2024-10-18 21:19 | PC.NURSE ---
PATIENT REFUSING CT SCAN WITH CONTRAST.. INFORMED AND AWARE.
[2024-10-18 22:15] VITALS: BP 205/98; PULSE 79
[2024-10-18] MEDS: LOSARTAN POTASSIUM 25 MG TABLET PO (22:15)
--- NOTE | 2024-10-18 22:41 | PC.NURSE ---
PATIENT REFUSED CT SCAN. PER PATIENT I DONT NEED THAT. I DONT WANT THAT
[2024-10-18 22:44] VITALS: BP 174/80; PULSE 75; RESP 14; TEMP 37; O2SAT 96
[2024-10-18 23:27] LABS: C-Reactive Protein 1.0 mg/dL (0.0-0.9); Magnesium 2.5 mg/dL (1.6-2.6); Procalcitonin 0.16 ng/ml (0.0-0.49); Thyroid Stimulating Hormone 1.87 uIU/mL (0.55-4.78); Troponin I < 0.020 ng/mL (0.0-0.045)
[2024-10-18 23:38] LABS: B-Type Natriuretic Peptide 82 pg/mL (0-100)
[2024-10-19] VITALS: BP 180/90; PULSE 70; RESP 14; TEMP 37; O2SAT 95
--- NOTE | 2024-10-19 00:03 | PC.NURSE ---
PER PATIENT I WANT THIS IV TAKEN OUT IT IS WHAT IS CAUSING ME TO HAVE HIGH BLOOD PRESSURE TO BE HIGH . THIS RN INFORMED PATIENT THE IMPORTANCE OF HAVING AN IV WHILE RECIEVING CARE FROM THE ER.
[2024-10-19 01:26] VITALS: BP 178/87; PULSE 75; RESP 14; TEMP 37; O2SAT 99
[2024-10-23 14:41] LABS: Prolactin* 7.0 ng/mL
== END 2024-10-19 01:27 | disposition home or self-care (01) ==
PROVIDERS: Physician Assistant; Emergency Provider Emergency Medicine; PCP Physician Assistant
DX: N39.0 Urinary tract infection, site not specified (principal); J40 Bronchitis, not specified as acute or chronic; I49.8 Other specified cardiac arrhythmias
CPT/HCPCS: 36415; 71046; 80053; 81001; 83605; 83615; 83690; 83735; 83880; 84145; 84146; 84443; 84484; 85025; 85379; 85610; 85652; 85730; 86140; 87040; 87400; 87502; 87811; 93005; 96365; 99284; A9270; J0696

== ENCOUNTER 2024-10-30 23:25 | Emergency (ER) | payer MEDICARE, MEDICAID, SELFPAY ==
[2024-10-30 23:37] VITALS: PULSE 91; RESP 18; O2SAT 96
[2024-10-30 23:41] VITALS: BMI 31.5
--- NOTE | 2024-10-30 23:50 | PD.EDABDPN ---
ED Abdominal Pain RME/HPI General Chief Complaint: Abdominal Pain Stated complaint: SICK Time seen by provider: 10/30/24 23:50 Arrival date/time: 10/30/24 23:25 RME / HPI RME / HPI narrative: See MDM for HPI documentation. Related Data Home Medications ?Medication ?Instructions ?Recorded ?Confirmed loratadine 10 mg tablet 10 mg PO QDAY 04/22/21 08/31/24 insulin degludec 200 unit/mL (3 45 unit subcut QDAY 08/12/21 08/31/24 mL) subcutaneous pen (Tresiba FlexTouch U-200 insulin) atorvastatin 20 mg tablet 20 mg PO HS 03/11/22 08/31/24 benzonatate 100 mg capsule 100 mg PO TID 03/11/22 08/31/24 insulin aspart U-100 100 unit/mL 6 unit subcut TIDWM 03/11/22 08/31/24 (3 mL) subcutaneous pen (Novolog FlexPen U-100 Insulin aspart) losartan 100 mg tablet 100 mg PO DAILY for BP 04/27/24 08/31/24 sertraline 25 mg tablet 25 mg PO HS 04/28/24 08/31/24 ondansetron HCl 8 mg tablet 8 mg PO Q8H 08/31/24 08/31/24 Previous Rx's ?Medication ?Instructions ?Recorded losartan 50 mg tablet 50 mg PO QDAY #30 tabs 05/25/23 pentosan polysulfate sodium 100 mg 100 mg PO TID #90 caps 09/21/23 capsule oxycodone-acetaminophen 5 mg-325 2 tab PO Q8H PRN pain #20 tabs 06/04/24 mg tablet (Percocet) albuterol sulfate 90 mcg/actuation 2 puff inhalation Q6H PRN 10/19/24 aerosol inhaler shortness of breath or wheezing #8.5 grams cefdinir 300 mg capsule 300 mg PO BID #14 caps 10/19/24 alprazolam 0.25 mg tablet (Xanax) 0.25 mg PO BID PRN anxiety #10 tabs 10/31/24 clonidine HCl 0.1 mg tablet 0.1 mg PO BID #60 tabs 10/31/24 Allergies Allergy/AdvReac Type Severity Reaction Status Date / Time amoxicillin Allergy Severe Vomiting Verified 09/01/24 08:23 codeine Allergy Severe PALPITATION Verified 09/01/24 08:23 S diazepam Allergy Severe RAPID Verified 09/01/24 08:23 HEARTRATE hydrocodone Allergy Severe Vomiting Verified 09/01/24 08:23 hydromorphone Allergy Severe Agitated Verified 09/01/24 08:23 ibuprofen Allergy Severe BLEEDING Verified 09/01/24 08:23 IN STOMACH PER PT meperidine Allergy Severe RAPID Verified 09/01/24 08:23 HEARTRATE morphine Allergy Severe RAPID Verified 09/01/24 08:23 HEARTRATE propoxyphene Allergy Severe RAPID Verified 09/01/24 08:23 HEARTRATE adhesive tape AdvReac Severe Hives Verified 08/31/24 14:49 levofloxacin AdvReac Severe VOMITS Verified 09/01/24 08:23 Review of Systems Review of Systems Systems Reviewed: All systems reviewed, normal except as documented Past Medical History Past Medical History NEUROLOGIC: Positive Traumatic Brain Injury; Negative Neurological Disorders, Cerebrovascular Accident, Transient Ischemic Attacks (TIA), Dementia, Alzheimer's Disease, Parkinson's Disease, Brain Tumor, Meningitis, Seizures, Epilepsy, Multiple Sclerosis, Cerebral Palsy, Amyotrophic Lateral Sclerosis (ALS/Lilliam Gehrig's), Guillain-[place] Syndrome, Spina Bifida, Paralysis, Peripheral Neuropathy, Junior's Palsy, Subdural Hematoma, Migraine, Head Trauma or Spinal Cord Injury CARDIAC: Positive Cardiac Disorders, Myocardial Infarction, Angina, Hypercholesterolemia, Congestive Heart Failure, Edema, Deep Vein Thrombosis and Hypertension; Negative Cardiac Arrhythmia, Atrial Fibrillation, Heart Murmur, Coronary Artery Disease, Atherosclerotic Heart Disease, Peripheral Vascular Disease, Aneurysm, Congenital Heart Disease, Valvular Heart Disease, Rheumatic Fever, Cardiomyopathy, Pericarditis, Cellulitis, Hypotension or Varicose Veins RESPIRATORY: Positive Chronic Obstructive Pulmonary Disease (COPD), Asthma, Bronchitis and Pneumonia; Negative Emphysema, Pulmonary Fibrosis, Cystic Fibrosis, Tuberculosis, Pulmonary Embolism, Pulmonary Edema or Sleep Apnea GASTROINTESTINAL: Positive Gastrointestinal Disorders, Gastroesophageal Reflux Disease and Obesity; Negative Hepatitis, Cirrhosis, Pancreatitis, Celiac Disease, Gall Bladder Disease, Gastrointestinal Bleed, Esophageal Varices, Romero's Esophagus, Colitis, Ulcerative Colitis, Diverticulitis, Diverticulosis, Ulcer, Colorectal Cancer, Irritable Bowel, Crohn's Disease, Obstructive Bowel, Hiatal Hernia or Hemorrhoids GENITOURINARY: Positive Genitourinary Disorders and Renal Disease; Negative Kidney Stones, Polycystic Kidney Disease, Neurogenic Bladder, Inguinal Hernia, Dialysis or Benign Prostatic Hyperplasia REPRODUCTIVE: Positive Previous Pregnancies; Negative Breast Cancer, Endometriosis, Genital Herpes, Gonorrhea, Pelvic Inflammatory Disease, Syphilis or Uterine Prolapse MUSCULOSKELETAL: Positive Musculoskeletal Disorders and Arthritis; Negative Muscular Dystrophy, Myasthenia Gravis, Marfan's Syndrome, Bone Cancer, Rheumatoid Arthritis, Osteoporosis, Degenerative Disk Disease, Gout, Scoliosis, Carpal Tunnel Syndrome, Fibromyalgia, Fractures, Degenerative Joint Disease, Osteomyelitis or Poliovirus ENT: Negative Cataracts, Glaucoma, Blind, Retinal Detachment, Macular Degeneration, Ear Infection, Deafness, Head Trauma or Eye Prosthesis ENDOCRINE: Positive Endocrine Disorders and Diabetes Mellitus Type 2 (TASHEVA INSULIN AND NOVALOG); Negative Diabetes Mellitus Type 1, Hypoglycemia, Daniel's Syndrome, Burton's Disease, Hyperthyroidism, Hypothyroidism, Parathyroid Disease, Pituitary Disease, Systemic Lupus Erythematosus, Syndrome of Inappropriate Antidiuretic Hormone (SIADH), Adrenal Disease or Graves' Disease HEMATOLOGIC: Positive Blood Disorders and Anemia; Negative Sickle Cell Disease or Clotting Problems PSYCHO/SOCIAL: Positive Anxiety; Negative Psychiatric Problems, Schizophrenia, Recreational Drug Use, Bipolar Disorder, Depression, Behavior Problems, Self-Mutilation, Attention Deficit Disorder, Attention Deficit Hyperactivity Disorder, Depression, Post Traumatic Stress Disorder or Eating Disorder OTHER HISTORY: Positive Hospitalization, Blood Transfusions, Chicken Pox, Measles and Mumps; Negative Autoimmune Disease, Down Syndrome, Autism, Developmental Delay, Shingles, Falls, Blood Transfusion Reaction, Anesthesia Reactions, Organ Transplant, Chemotherapy, Radiation Therapy, Hyperbaric Therapy, MRSA, VRSA, Vancomycin-Resistant Enterococci, Human Immunodeficiency Virus (HIV), Rubella ([place] Measles), Pertussis, Clostridium Difficile, Cancer, Breast Cancer, Cervical Cancer, Colorectal Cancer, Lung Cancer or Ovarian Cancer Family History FAMILY HISTORY: Positive Family Respiratory Disorders, Family Cardiac Disorders and Family Cancer; Negative Family Psychiatric Problems, Family Gastrointestinal Problems, Family Surgery or Family Anesthesia Reaction Surgical History SURGICAL: Positive Angiogram, Abdominal Surgery, Joint Replacement and Hysterectomy; Negative Cardiac Surgery, Open Heart Surgery, Coronary Artery Bypass Graft, Valve Replacement, Vascular Surgery, Coronary Stent, Cardiac Catheterization, Pacemaker, Auto Implanted Cardiovert Defib, Carotid Endarterectomy, Endocrine Surgery, Thyroidectomy, Ear Surgery, Tympanostomy Tube, Eye Surgery, Nose Surgery, Oral Surgery, Tonsillectomy, Adenoidectomy, Cochlear Implant, Corneal Transplant, Throat Surgery, Tracheostomy, Gastric Bypass Surgery, Gastrostomy, Bowel Surgery, Nephrectomy, Amputation, Arthroscopy, Neurologic Surgery, Brain Shunt, Mastectomy, Lumpectomy, Tubal Ligation, Section or Organ Transplant Social History SMOKING STATUS: Never smoker SECOND HAND EXPOSURE: No SUBSTANCE USE: does not use ED Exam Narrative Physical exam: See MDM for physical exam documentation. Course Quality Measures none Orders Category Date Time Status Bedside COVID-19 Antigen Test NOW Care 10/31/24 00:11 Completed Bedside Influenza A&B Antigen Test NOW Care 10/31/24 00:11 Completed EKG (ED ONLY) *Do not use* NOW Care 10/31/24 00:13 Completed Saline [Insert IV] NOW Care 10/31/24 00:[address] chest abdomen pelvis wo Stat Exams 10/31/24 00:[address] head/brain wo con Stat Exams 10/31/24 00:12 Completed EKG (ED Only) Stat Exams 10/31/24 00:13 Ordered XR chest 1V portable Stat Exams 10/31/24 00:13 Completed Amylase Stat Lab 10/31/24 00:20 Completed BNP [B-Type Natriuretic Peptide] Stat Lab 10/31/24 00:20 Completed Bilirubin,Direct Stat Lab 10/31/24 00:20 Completed Blood Culture (Lab) Stat Lab 10/31/24 02:15 Received C-Reactive Protein Stat Lab 10/31/24 00:20 Completed CBC Stat Lab 10/31/24 00:20 Completed CMP [Comprehensive Metabolic Panel] Stat Lab 10/31/24 00:20 Completed Lactate (Lactic Acid) Stat Lab 10/31/24 02:05 Completed Lipase Stat Lab 10/31/24 00:20 Completed Magnesium Stat Lab 10/31/24 00:20 Completed Procalcitonin Stat Lab 10/31/24 00:20 Completed Sed Rate (ESR) Stat Lab 10/31/24 00:20 Completed TSH [Thyroid Stimulating Hormone] Stat Lab 10/31/24 00:20 Completed Troponin I Stat Lab 10/31/24 00:20 Completed UA, C/S IF [Urinalysis, C/S if Indicated] Stat Lab 10/31/24 01:18 Completed ALPRazoLAM [Xanax] Med 10/31/24 01:21 Discontinued 0.5 mg PO X1 ONE Levalbuterol Rt [Xopenex Rt Mary] Med 10/31/24 01:21 Discontinued 2.5 mg INH X1 ONE Losartan [Cozaar] Med 10/31/24 02:30 Discontinued 50 mg PO X1 ONE MethylPREDNISolone.* [SoluMEDROL Inj] Med 10/31/24 01:21 Discontinued 125 mg IVP X1 ONE Metoprolol Succinate Xl [Toprol Xl] Med 10/31/24 02:30 Discontinued 100 mg PO X1 ONE Ondansetron Inj [Zofran Inj] Med 10/31/24 00:11 Discontinued 4 mg IVP X1 ONE Sodium Chloride Rt Mary 0.9% [NS Rt Mary 0.9%] Med 10/31/24 01:21 Discontinued 3 ml INH PRN PRN cloNIDine HCL [Catapres] Med 10/31/24 00:09 Discontinued 0.4 mg PO X1 ONE Vital Signs Vital signs: Vital Signs Temperature 97.9 F 10/30/24 23:58 Pulse Rate 83 10/30/24 23:58 Respiratory Rate 14 10/30/24 23:58 Blood Pressure 236/109 H 10/30/24 23:58 Pulse Oximetry (%) 97 10/30/24 23:58 Oxygen Delivery Method Room Air 10/30/24 23:58 Abdominal Pain MDM MDM Narrative MDM Narrative:: This section includes all my notes and documentations, including HPI, PE, and ED course. Henry Dillard MD HPI: 83yo female BIBA from home with multiple concerns. She reports continued for weeks and on and off symptoms of headache and postnasal drip and congestion and cough and shortness of breath. Has trouble describing quality and quantity of her symptoms. Has trouble describing exacerbating factors or relieving factors. She reports no fever in the past few days. No other complaints. ROS: All negative except as documented in HPI. Physical Exam: General: Alert and oriented. No acute distress when remaining still. High BP noted. Eyes: Conjunctivae and lids clear. PERRL. EOMI. ENT: No nasal congestion. Pharynx normal. TM normal bilaterally. Neck: Supple. Heart: RRR. Lungs: No respiratory distress. Good air movement. No rhonchi, wheezing, rales. Abdomen: Soft and nontender. Normal bowel sounds. No distension. No rebound or guarding. Back: No CVA tenderness. Skin: Warm and dry. Neuro: Alert and oriented X 3. Cranial nerves were grossly normal. No peripheral motor deficits. I reviewed EMS notes. I reviewed all diagnostic test results. My interpretation of the chest x-ray is NAD. My review of the CT head report is NAD. My review of the CT chest abdomen pelvis report is NAD. Blood tests and urine tests are unremarkable. COVID/Influenza negative. At this point, diagnoses include allergic rhinitis, hypertension, anxiety. Treatment here included Xopenex, Metoprolol, Losartan (patient declined multiple medications similar to past visits, including Xanax and clonidine and Solu-Medrol and metoprolol and Zofran). Some improvement noted. Recommended more outpatient management. Based on my best medical judgment, made decision no further evaluation or treatment indicated at this time. Patient understands and agrees to the discharge instructions customized and printed, see below. Discharge instructions from Dr. Dillard: 1. After extensive evaluation, there is no life-threatening condition.? Such as stroke or brain tumor or heart attack or pneumothorax (collapsed lung). And there is no pneumonia or bronchitis or COVID or influenza or other infection. Your cough and congestion with drainage is due to allergic rhinitis, see attached handout. Since you decline many medications, see your primary doctor to discuss treatment for your allergic rhinitis. 2. For high BP, take Clonidine 0.1 mg pill(s) every 12 hours as needed based on SBP (higher number of BP). SBP > 140, take one pill. SBP > 160, take two pills. SBP > 180, take three pills. SBP > 200, take four pills. 3. Take Xanax as needed for anxiety. 4. See a private doctor on 11/01/2024 for recheck and further care. Ask to review all test results and official radiology reports, to make sure you receive all necessary follow-ups and monitoring. To make sure there is no serious underlying heart condition, ask to help you get more tests for your heart that cannot be done here in the ER. Such as Holter Monitor (cardiac monitoring at home from a day to even a month), heart stress test (on treadmill or with medication), echocardiogram (imaging of your heart structures), heart catherization (checking for blockages in your heart arteries), and a referral to see a Polystyrene Bead Molder. 5. Seek immediate medical care with worsening or with any concerns.?? Henry Dillard MD Patient data External records reviewed:: [facility] previous records (Per chart review, patient was seen here on 10/18/24 for bronchitis.) and EMS form Clinical information provided by:: patient Social determinants that could affect healthcare access:: none Patient has the following chronic illnesses:: renal disease on HD, DM, HTN How is presenting disease/condition affected by chronic disease/condition?: uneffected by Evaluation data The following diagnostics were reviewed and interpreted by me:: lab results and radiology exam(s) Lab and/or radiology exams considered but not ordered:: none Interpretation Summary: I reviewed all diagnostic test results. My interpretation of the chest x-ray is NAD. My review of the CT head report is NAD. My review of the CT chest abdomen pelvis report is NAD. Blood tests and urine tests are unremarkable. COVID/Influenza negative. Medications / Prescriptions Medications or Prescriptions considered but not ordered:: none Medication administrations:: Medication Administration History Discontinued Medications Alprazolam (Alprazolam 0.25 Mg Tablet) 0.5 mg PO X1 ONE Stop: 10/31/24 01:22 Last Admin: 10/31/24 01:37 Dose: Not Given Documented By: NIRALI Non-Admin Reason: Patient Refused Clonidine (Clonidine Hcl 0.1 Mg Tablet) 0.4 mg PO X1 ONE Stop: 10/31/24 00:10 Last Admin: 10/31/24 00:50 Dose: Not Given Documented By: NIRALI Non-Admin Reason: Patient Refused Levalbuterol HCl (Levalbuterol Rt 1.25 Mg/0.5 Ml Nebu) 2.5 mg INH X1 ONE Stop: 10/31/24 01:22 Last Admin: 10/31/24 02:01 Dose: 2.5 mg Documented By: CIPRIANO Losartan Potassium (Losartan Potassium 25 Mg Tablet) 50 mg PO X1 ONE Stop: 10/31/24 02:31 Last Admin: 10/31/24 02:52 Dose: 50 mg Documented By: NIRALI Methylprednisolone Sodium Succinate (Methylprednisolone Sod Succ 62.5 Mg/Ml 2ml Vial) 125 mg IVP X1 ONE Stop: 10/31/24 01:22 Last Admin: 10/31/24 01:37 Dose: Not Given Documented By: NIRALI Non-Admin Reason: Patient Refused Metoprolol Succinate (Metoprolol Succinate Xl 25 Mg Tabcr) 100 mg PO X1 ONE Stop: 10/31/24 02:31 Last Admin: 10/31/24 02:53 Dose: 100 mg Documented By: NIRALI Ondansetron HCl (Ondansetron Inj 2 Mg/Ml Inj 2 Ml) 4 mg IVP X1 ONE; Protocol Stop: 10/31/24 00:12 Last Admin: 10/31/24 00:49 Dose: 4 mg Documented By: NIRALI Sodium Chloride (Sodium Chloride Rt Mary 0.9% 3 Ml Nebu) 3 ml INH PRN PRN PRN Reason: SOLN Stop: 11/30/24 01:20 Last Admin: 10/31/24 02:01 Dose: 3 ml Documented By: CIPRIANO Treatment here included Xopenex, Metoprolol, Losartan (patient declined multiple medications similar to past visits, including Xanax and clonidine and Solu-Medrol and metoprolol and Zofran). Consultations Consultation(s) initiated? (list below): No Diagnosis Differential diagnosis abdominal pain: other (CVA, brain tumor, ID, CHF, COPD, pneumonia, influenza, COVID, URI, allergic rhinitis) Most likely diagnosis given after review of the tests above:: Allergic rhinitis, Hypertension, Anxiety Admission Indicated Admission indicated?: not indicated Explain why admission is indicated or not indicated:: With significant improvement and no condition needing emergent intervention, there was no indication for admission. Admission Request Was there a request for admission?: No Disposition Plan Disposition Plan: Discharge Discharge Attestation Discharge Attestation: The patient and all family members were given an opportunity to ask questions and understood the discharge instructions. Discharge instructions specifically effects, indications for sooner follow up or return to the emergency department, and the expected course of current diagnosis. Patient condition: Stable Discharge Plan Plan Patient Disposition: HOME (Self Care) Prescriptions/Referrals Prescriptions/Med Rec: New clonidine HCl 0.1 mg tablet 0.1 mg PO BID Qty: 60 0RF alprazolam [Xanax] 0.25 mg tablet 0.25 mg PO BID PRN (Reason: anxiety) Qty: 10 0RF No Action loratadine 10 mg tablet 10 mg PO QDAY Patient Comments: TAKE 1 TABLET BY MOUTH EVERY DAY insulin degludec [Tresiba FlexTouch U-200] 200 unit/mL (3 mL) insulin pen 45 unit SUBCUT QDAY losartan 50 mg tablet 50 mg PO QDAY Qty: 30 1RF losartan 100 mg tablet 100 mg PO DAILY Patient Comments: TAKE 1 TABLET BY MOUTH EVERY DAY sertraline 25 mg tablet 25 mg PO HS Patient Comments: TAKE 1 TABLET BY MOUTH AT BEDTIME oxycodone-acetaminophen [Percocet] 5-325 mg tablet 2 tab PO Q8H MDD 6 PRN (Reason: pain) Qty: 20 0RF atorvastatin 20 mg tablet 20 mg PO HS benzonatate 100 mg capsule 100 mg PO TID Patient Comments: TAKE 1 CAPSULE BY MOUTH TWICE DAILY insulin aspart U-100 [Novolog FlexPen U-100 Insulin] 100 unit/mL (3 mL) insulin pen 6 unit SUBCUT TIDWM Patient Comments: INJECT 10 UNITS UNDER THE SKIN THREE TIMES DAILY WITH MEALS pentosan polysulfate sodium 100 mg capsule 100 mg PO TID Qty: 90 3RF ondansetron HCl 8 mg tablet 8 mg PO Q8H Patient Comments: TAKE 1 TABLET BY MOUTH EVERY 8 HOURS FOR 2 DAYS albuterol sulfate 90 mcg/actuation HFA aerosol inhaler 2 puff inhalation Q6H PRN (Reason: shortness of breath or wheezing) Qty: 8.5 0RF cefdinir 300 mg capsule 300 mg PO BID Qty: 14 0RF Referrals: No Primary/Family,Physician [Primary Care Provider] - In 1 week Problem List Clinical Impression: Allergic rhinitis, Hypertension, Anxiety Patient/Caregiver Discharge Instructions Discharge Activity: activity as tolerated Education Materials: ED Anxiety Reaction, ED Hypertension, Established, ED Allergic Rhinitis Additional Instructions: Discharge instructions from Dr. Dillard: 1. After extensive evaluation, there is no life-threatening condition.? Such as stroke or brain tumor or heart attack or pneumothorax (collapsed lung). And there is no pneumonia or bronchitis or COVID or influenza or other infection. Your cough and congestion with drainage is due to allergic rhinitis, see attached handout. Since you decline many medications, see your primary doctor to discuss treatment for your allergic rhinitis. 2. For high BP, take Clonidine 0.1 mg pill(s) every 12 hours as needed based on SBP (higher number of BP). SBP > 140, take one pill. SBP > 160, take two pills. SBP > 180, take three pills. SBP > 200, take four pills. 3. Take Xanax as needed for anxiety. 4. See a private doctor on 11/01/2024 for recheck and further care. Ask to review all test results and official radiology reports, to make sure you receive all necessary follow-ups and monitoring. To make sure there is no serious underlying heart condition, ask to help you get more tests for your heart that cannot be done here in the ER. Such as Holter Monitor (cardiac monitoring at home from a day to even a month), heart stress test (on treadmill or with medication), echocardiogram (imaging of your heart structures), heart catherization (checking for blockages in your heart arteries), and a referral to see a Polystyrene Bead Molder. 5. Seek immediate medical care with worsening or with any concerns.?? Print Language: Korean Stand Alone Forms: [facility] Info., Patient Portal Info Letter
[2024-10-30 23:58] VITALS: BP 236/109; PULSE 83; RESP 14; TEMP 36.6; O2SAT 97
--- NOTE | 2024-10-31 00:12 | XR_ITS ---
Examination: CT chest, without intravenous contrast. CT abdomen, without intravenous contrast. CT pelvis, without intravenous contrast. 2-D sagittal and coronal reconstructions. 3-D reconstructions. Date and time of exam:October 31, 2024, 0027 hours, comparison July 20, 2024 CT abdomen and pelvis INDICATIONS: Shortness of chest pain and mid abdominal pain beginning 3 days ago CTDI vol (mgy) 17.4. DLP (MGycm)1161. Technique: Multiple CT images, 3.0 mm slice thickness, obtained chest, abdomen, pelvis, with the high-resolution 64 slice scanner.. Sagittal and coronal 2-D reconstructions are obtained. 3-D reconstructions Low dose protocols were performed. One or more of the following dose reduction techniques were used; automated exposure control, adjustment of the mA and/or KV according to patient size, use of iterative reconstruction technique. Findings: Bilateral thyroid nodules, the largest in the right lobe 16 mm. Thoracic aortic calcification no aneurysmal dilatation Right internal jugular dialysis catheter tip SVC satisfactory position Significant coronary artery calcification. Mild enlargement cardiac contour. 6 mm pulmonary nodule left upper lobe axial image 60 6 mm pulmonary nodule right upper lobe axial image 88 4 mm pulmonary nodule lingular segment image 166 Dilated bronchi in the lower lung zones. No liver or splenic lesions Absent gallbladder No pancreatic or adrenal mass Moderate renal scarring History abdominal aortic calcification No pericecal inflammatory change No bowel obstruction Abundant stool in the rectum Absent uterus No pelvic mass Significant osteopenia with moderate narrowing hip joints IMPRESSION: Bilateral thyroid nodules as above, consider dedicated thyroid sonography Noncalcified pulmonary nodules as above, differential would include early pulmonary nodular metastatic disease Mild bibasilar bronchiectasis No acute process in the abdomen or pelvis
--- NOTE | 2024-10-31 00:12 | XR_ITS ---
Examination: CT brain head without contrast. 2-D sagittal coronal reconstructions Date and time of exam:October 31, 2024 at 0026 hours, comparison August 31, 2024 INDICATIONS: Onset hypertension and headache today CTDI: vol (mGy):45.8. DLP: (mGycm):853 Technique: Multiple CT axial sections of the brain have been obtained, 5 mm slice thickness. Contrast has not been administered. 2-D sagittal, coronal reconstructions have been obtained Low dose protocols were performed. One or more of the following dose reduction techniques were used; automated exposure control, adjustment of the mA and/or KV according to patient size, use of iterative reconstruction technique. Findings: No significant ventricular enlargement. Intra-axial or extra-axial hemorrhage density is not seen. No mass effect or midline shift Basal cisterns are not remarkable. Fourth ventricle is midline. Cranial vault intact. Impression: Negative for acute hemorrhage, mass effect or midline shift
--- NOTE | 2024-10-31 00:13 | XR_ITS ---
Examination: AP chest single view Technique one AP portable upright chest single view Date and time: October 31, 2024 0038 hours, comparison October 18, 2024 INDICATIONS: Shortness of breath today. FINDINGS: Normal heart size. Mild vascular congestion. Right internal jugular dialysis catheter tips SVC Prominent osteopenia. IMPRESSION: Mild vascular congestion.
[2024-10-31] MEDS: ONDANSETRON INJ 2 MG/ML INJ 2 ML 4 MG IVP (00:49)
--- NOTE | 2024-10-31 00:49 | PC.NURSE ---
Pt refused clonidine. Said this medication raises her blood pressure. MD Gilma christine.
--- NOTE | 2024-10-31 01:10 | PRELIM_ITS ---
CT scan of the head without intravenous contrast (axial sections with sagittal and coronal reformats) October 31, 2024 0026 hours Clinical history: Headache and high BP Radiation Dose: Total exam DLP 856 mGy/cm. Reference is made to the prior report dated February Findings: There is no evidence of intracranial hemorrhage, mass effect or midline shift. There are periventricular white matter hypodensities, compatible with chronic small vessel ischemia. There is mild volume loss. The calvarium is unremarkable. The mastoid air cells and the visualized paranasal sinuses are clear. Impression: No evidence of intracranial hemorrhage, mass effect or midline shift. Periventricular chronic small vessel ischemia and volume loss. Report Electronically Signed By: Chris Du 10/31/2024 1:10:05 AM [EST]
--- NOTE | 2024-10-31 01:19 | PRELIM_ITS ---
CT scan of the chest, abdomen and pelvis without intravenous contrast (axial sections with sagittal and coronal reformats) October 31, 2024 0027 hours Clinical History: SOB and abdominal pain Radiation Dose: Total exam DLP 1162mGy/cm. Reference is made to the prior report dated March. Findings Bibasilar atelectasis is seen. There are non-calcified nodules in the bilateral upper lobe, the largest measuring 7 mm in the left upper lobe. There is a calcified nodule in the right upper lobe, measuring 3.5 mm, with smooth margin. The lungs are otherwise clear. There is no pleural effusion or pneumothorax. The aorta is unremarkable on this noncontrast study. No evidence of mediastinal mass or lymphadenopathy. There is no pericardial effusion. There are hypodense nodules in the both lobes of the thyroid, the largest measuring 1.5 mm in the right lobe. A right internal jugular venous catheter is seen with its tip in the cavoatrial junction. The gallbladder is surgically absent. A calcific density is noted in the spleen, likely representing an old calcified granuloma. Nonspecific perinephric fat stranding is noted bilaterally. The liver, pancreas and adrenals are unremarkable on this noncontrast study. No evidence of bowel obstruction. The appendix is not definitively visualized; however, there is no evidence of inflammatory process in the right lower quadrant to suggest appendicitis. The urinary bladder is unremarkable. There is no free fluid or free air. Degenerative changes are identified in the spine. Impression: Non-calcified nodules in the bilateral upper lobe, Recommend clinical correlation and follow-up. No evidence of intraabdominal or pelvic pathology on this noncontrast study. Other findings as described above. Report Electronically Signed By: Chris Du 10/31/2024 1:18:07 AM [EST]
[2024-10-31 01:28] LABS: Sed Rate (ESR) 48 mm/hr (0-30)
[2024-10-31 01:30] LABS: Basophils # (Auto) 0.1 Thou/mm3 (0.0-0.2); Basophils % (Auto) 1 % (0-2.5); Eosinophils # (Auto) 0.2 Thou/mm3 (0.0-0.5); Eosinophils % (Auto) 2 % (0-10); Hematocrit 34.3 % (36.0-46.0); Hemoglobin 10.8 g/dL (12.0-16.0); Immature Granulocytes Auto 0.10 Thou/mm3 (0.00-0.00); Lymphocytes # (Auto) 3.4 Thou/mm3 (1.0-4.8); Lymphocytes % (Auto) 23 % (10-50); Mean Corpuscular HGB Conc 31.5 g/dl (31.0-37.0); Mean Corpuscular Hemoglobin 28.1 pg (25.0-35.0); Mean Corpuscular Volume 89 fL (80-100); Monocytes # (Auto) 0.9 Thou/mm3 (0.0-0.8); Monocytes % (Auto) 6 % (0-12); Neutrophils # (Auto) 9.9 Thou/mm3 (1.8-7.7); Neutrophils % (Auto) 68 % (37-80); Nucleated Red Blood Cell # 0.00 Thou/mm3 (0.00-0.00); Nucleated Red Blood Cell % 0 /100 WBC (0); Platelet Count 239 Thou/mm3 (140-440); RDW Standard Deviation 46.9 fL (36.4-46.3); Red Blood Count 3.85 Miln/mm3 (4.00-5.20); White Blood Count 14.7 Thou/mm3 (3.6-11.0)
[2024-10-31 01:32] LABS: Collection Type, Urine Clean Catch
--- NOTE | 2024-10-31 01:37 | PC.NURSE ---
Pt refused xanax and solumedrol. Stated I don't need those .
[2024-10-31 01:40] LABS: Bilirubin,Urine Negative (Negative); Blood,Urine Negative (Negative); Clarity,Urine Clear (Clear/Hazy); Color,Urine Colorless (Lt Yel-Yel); Culture Indicated,Urine Not Indicated; Glucose, Urine Trace (Negative); Ketones,Urine Negative (Negative); Leukocyte Esterase,Urine Negative (Negative); Nitrite,Urine Negative (Negative); PH,Urine 7.0 (5.0-7.0); Protein,Urine 2+ (Neg - Trace); RBC,Urine 1 /hpf (0-3); Specific Gravity,Urine 1.006 (1.001-1.035); Squamous Epithelial Cell,Urine < 1 /hpf (0-5); Urobilinogen,Urine Negative mg/dL (0.0-1.0); WBC,Urine 1 /hpf (0-5)
[2024-10-31 01:40] LABS: Alanine Aminotransferase < 7 U/L (10-49); Albumin, Serum 3.8 gm/dL (3.4-4.8); Albumin/Globulin Ratio 1.5 (1.2-2.2); Alkaline Phosphatase 165 U/L (46-116); Amylase 70 U/L (30-118); Anion Gap 10 (7-16); Aspartate Amino Transferase 15 U/L (0-34); BUN/Creatinine Ratio 10 Ratio (12-20); Bilirubin,Direct < 0.1 mg/dL (0.0-0.3); Bilirubin,Total 0.2 mg/dL (0.3-1.2); Blood Urea Nitrogen 26 mg/dL (9-23); C-Reactive Protein < 0.5 mg/dL (0.0-0.9); Calcium 9.4 mg/dL (8.3-10.6); Calcium (Corrected) 9.6 mg/dL (8.5-10.1); Carbon Dioxide 22.9 mMol/L (20.0-31.0); Chloride 102 mMol/L (98-107); Creatinine (Component) 2.5 mg/dL (0.6-1.3); Estimated Creatinine Clearance 16.4 mL/min (>60); Globulin 2.6 gm/dL (2.3-3.5); Glucose 125 mg/dL (74-106); Lipase 51 U/L (12-53); Magnesium 2.0 mg/dL (1.6-2.6); Osmolality,Calculated 275 (275-295); Potassium 4.2 mMol/L (3.4-5.1); Procalcitonin 0.09 ng/ml (0.0-0.49); Sodium 135 mMol/L (136-145); Thyroid Stimulating Hormone 1.83 uIU/mL (0.55-4.78); Total Protein 6.4 gm/dL (5.7-8.2); Troponin I < 0.020 ng/mL (0.0-0.045); eGFR 19 See Note
[2024-10-31 01:51] LABS: B-Type Natriuretic Peptide 140 pg/mL (0-100)
[2024-10-31] MEDS: LEVALBUTEROL RT 1.25 MG/0.5 ML NEBU 2.5 MG INH (02:01)
[2024-10-31] MEDS: SODIUM CHLORIDE RT SOL 0.9% 3 ML NEBU INH (02:01)
[2024-10-31 02:04] VITALS: PULSE 74; RESP 14; O2SAT 98
[2024-10-31 02:24] LABS: Lactate (Lactic Acid) 1.0 mMol/L (0.4-2.0)
[2024-10-31 02:52] VITALS: BP 183/104; PULSE 88
[2024-10-31] MEDS: LOSARTAN POTASSIUM 25 MG TABLET 50 MG PO (02:52)
[2024-10-31 02:53] VITALS: BP 183/104; PULSE 84
[2024-10-31] MEDS: METOPROLOL SUCCINATE XL 25 MG TABCR 100 MG PO (02:53)
--- NOTE | 2024-10-31 03:07 | PC.NURSE ---
Pt krystle'd, called daughter Stacie who agreed to p/u pt.
[2024-10-31 03:30] VITALS: BP 197/100; PULSE 82; RESP 16; TEMP 36.2; O2SAT 97
== END 2024-10-31 04:18 | disposition home or self-care (01) ==
PROVIDERS: Emergency Provider Emergency Medicine
DX: J30.9 Allergic rhinitis, unspecified (principal); I10 Essential (primary) hypertension; F41.9 Anxiety disorder, unspecified
CPT/HCPCS: 36415; 70450; 71045; 71250; 74176; 80053; 81001; 82150; 82248; 83605; 83690; 83735; 83880; 84145; 84443; 84484; 85025; 85652; 86140; 87040; 87400; 87811; 94640; 96374; 99284; J2405; A9270

== ENCOUNTER 2024-11-02 15:01 | Emergency (ER) | payer MEDICARE, MEDICAID, SELFPAY ==
[2024-11-02] VITALS (7 sets, daily range): BP systolic 176–206; BP diastolic 90–104; PULSE 70–87; RESP 16–18; TEMP 36.7–37; O2SAT 95–98; BMI 31.5
--- NOTE | 2024-11-02 15:22 | PD.EDHA ---
ED Headache RME/HPI General Chief Complaint: Headache Stated Complaint: HIGH BLOOD PRESSURE Time Seen by Provider: 11/02/24 15:04 Arrival date/time: 11/02/24 15:01 Limitations: no limitations RME / HPI RME / HPI Narrative: DR. MOSQUEDA MAIN ED EVALUATION: 83-year-old female with past medical history of hypertension, type 2 diabetes mellitus, and renal disease on dialysis (Wednesday and Wednesday) under the care of Dr. Brito, presents to the Emergency Department BIBA from home with a headache that started a couple hours ago. The pain is rated 5/10. EMS reports blood pressure at 200/110, heart rate 80, and oxygen saturation 98% on room air. The patient states she took her blood pressure medications this morning. She also reports associated nausea without vomiting and mild abdominal discomfort, particularly in the lower suprapubic area. She denies recent falls or injuries and notes that she still urinates despite being on dialysis. Related Data Home Medications ?Medication ?Instructions ?Recorded ?Confirmed loratadine 10 mg tablet 10 mg PO QDAY 04/22/21 08/31/24 insulin degludec 200 unit/mL (3 45 unit subcut QDAY 08/12/21 08/31/24 mL) subcutaneous pen (Tresiba FlexTouch U-200 insulin) atorvastatin 20 mg tablet 20 mg PO HS 03/11/22 08/31/24 benzonatate 100 mg capsule 100 mg PO TID 03/11/22 08/31/24 insulin aspart U-100 100 unit/mL 6 unit subcut TIDWM 03/11/22 08/31/24 (3 mL) subcutaneous pen (Novolog FlexPen U-100 Insulin aspart) losartan 100 mg tablet 100 mg PO DAILY for BP 04/27/24 08/31/24 sertraline 25 mg tablet 25 mg PO HS 04/28/24 08/31/24 ondansetron HCl 8 mg tablet 8 mg PO Q8H 08/31/24 08/31/24 Previous Rx's ?Medication ?Instructions ?Recorded losartan 50 mg tablet 50 mg PO QDAY #30 tabs 05/25/23 pentosan polysulfate sodium 100 mg 100 mg PO TID #90 caps 09/21/23 capsule oxycodone-acetaminophen 5 mg-325 2 tab PO Q8H PRN pain #20 tabs 06/04/24 mg tablet (Percocet) albuterol sulfate 90 mcg/actuation 2 puff inhalation Q6H PRN 10/19/24 aerosol inhaler shortness of breath or wheezing #8.5 grams cefdinir 300 mg capsule 300 mg PO BID #14 caps 10/19/24 alprazolam 0.25 mg tablet (Xanax) 0.25 mg PO BID PRN anxiety #10 tabs 10/31/24 clonidine HCl 0.1 mg tablet 0.1 mg PO BID #60 tabs 10/31/24 Allergies Allergy/AdvReac Type Severity Reaction Status Date / Time amoxicillin Allergy Severe Vomiting Verified 09/01/24 08:23 codeine Allergy Severe PALPITATION Verified 09/01/24 08:23 S diazepam Allergy Severe RAPID Verified 09/01/24 08:23 HEARTRATE hydrocodone Allergy Severe Vomiting Verified 09/01/24 08:23 hydromorphone Allergy Severe Agitated Verified 09/01/24 08:23 ibuprofen Allergy Severe BLEEDING Verified 09/01/24 08:23 IN STOMACH PER PT meperidine Allergy Severe RAPID Verified 09/01/24 08:23 HEARTRATE morphine Allergy Severe RAPID Verified 09/01/24 08:23 HEARTRATE propoxyphene Allergy Severe RAPID Verified 09/01/24 08:23 HEARTRATE adhesive tape AdvReac Severe Hives Verified 08/31/24 14:49 levofloxacin AdvReac Severe VOMITS Verified 09/01/24 08:23 Review of Systems Review of Systems Systems Reviewed: All systems reviewed, normal except as documented Past Medical History Past Medical History NEUROLOGIC: Positive Traumatic Brain Injury CARDIAC: Positive Cardiac Disorders, Myocardial Infarction, Angina, Hypercholesterolemia, Edema, Deep Vein Thrombosis and Hypertension RESPIRATORY: Positive Chronic Obstructive Pulmonary Disease (COPD), Asthma, Bronchitis and Pneumonia GASTROINTESTINAL: Positive Gastrointestinal Disorders, Gastroesophageal Reflux Disease and Obesity GENITOURINARY: Positive Genitourinary Disorders and Renal Disease REPRODUCTIVE: Positive Previous Pregnancies MUSCULOSKELETAL: Positive Musculoskeletal Disorders ENDOCRINE: Positive Endocrine Disorders and Diabetes Mellitus Type 2 HEMATOLOGIC: Positive Blood Disorders and Anemia PSYCHO/SOCIAL: Positive Anxiety OTHER HISTORY: Positive Hospitalization, Blood Transfusions, Chicken Pox, Measles and Mumps Family History FAMILY HISTORY: Positive Family Respiratory Disorders, Family Cardiac Disorders and Family Cancer Surgical History SURGICAL: Positive Angiogram, Joint Replacement and Hysterectomy Social History SMOKING STATUS: Never smoker SECOND HAND EXPOSURE: No SUBSTANCE USE: does not use ALCOHOL: Never ED Exam General Limitations: Present no limitations General appearance: Present alert and in no apparent distress Head Head exam: Present atraumatic, normocephalic and normal inspection Eye Eye exam: Present normal appearance, PERRL and EOMI ENT ENT exam: Present normal exam, normal oropharynx and mucous membranes moist Neck Neck exam: Present normal inspection, full ROM and trachea midline Chest Chest inspection: Present normal inspection and symmetric chest wall rise Respiratory Respiratory exam: Present normal lung sounds bilaterally Cardiovascular Cardiovascular exam: Present regular rate, normal rhythm and normal heart sounds Abdominal Exam Abdominal exam: Present tenderness (Mild abdominal pain and suprapubic area pain/tenderness) and normal bowel sounds Extremities Exam Extremities exam: Present normal inspection and full ROM Back Exam Back exam: Present normal inspection and full ROM Neurological Exam Neurological exam: Present alert, oriented X3 and CN II-XII intact Psychiatric Psychiatric exam: Present normal affect and normal mood Skin Skin exam: Present warm, dry, intact and normal color Course Quality Measures none Orders Category Date Time Status CT Screening NOW Care 11/02/24 15:34 Active EKG (ED ONLY) *Do not use* NOW Care 11/02/24 15:[address] abdomen pelvis w con Stat Exams 11/02/24 15:[address] head/brain wo con Stat Exams 11/02/24 18:25 Ordered CXR [XR chest 1V] Stat Exams 11/02/24 15:33 Completed EKG (ED Only) Stat Exams 11/02/24 15:33 Draft CBC Stat Lab 11/02/24 15:55 Completed CMP [Comprehensive Metabolic Panel] Stat Lab 11/02/24 15:55 Completed Lipase Stat Lab 11/02/24 15:55 Completed PT [Prothrombin Time with INR] Stat Lab 11/02/24 15:55 Completed Troponin I Stat Lab 11/02/24 15:55 Completed UA, C/S IF [Urinalysis, C/S if Indicated] Stat Lab 11/02/24 17:47 Completed Labetalol IV [Trandate IV] Med 11/02/24 15:36 Discontinued 10 mg IVP X1 ONE Vital Signs Vital signs: Vital Signs Temperature 98.1 F 11/02/24 15:06 Pulse Rate 87 11/02/24 15:06 Respiratory Rate 18 11/02/24 15:06 Blood Pressure 206/104 H 11/02/24 15:06 Pulse Oximetry (%) 97 11/02/24 15:06 Oxygen Delivery Method Room Air 11/02/24 15:06 Headache MDM Narrative MDM Narrative:: I, Neida Melendrez, am scribing for and in the presence of Dr. Mosqueda. Patient is an 83-year-old female with medical history notable for ESRD, hypertension, diabetes that seen emerged part concerns for abdominal pain, headache, nausea and having missed dialysis. Patient states that she has had the symptoms on and off for the last week. Missed dialysis on Wednesday usually goes Wednesday, follows with Dr Brito. Concern for ACS arrhythmia electrolyte abnormality bowel obstruction perforation symptomatic hypertension among others. Patient also with suprapubic pain concern for urinary tract infection. Ordered labs, CT brain, CT abdomen pelvis, medication for blood pressure control and for symptom relief. At this time accepted on transfer care over to oncoming provider Dr. Dillard. Patient is pending results of her workup and safe dispo Patient data External records reviewed:: [facility] previous records and EMS form Clinical information provided by:: patient and EMS Social determinants that could affect healthcare access:: none Patient has the following chronic illnesses:: Hypertension, type 2 diabetes mellitus, and renal disease on dialysis (Wednesday and Wednesday) under the care of Dr. Brito; she still urinates despite being on dialysis. How is presenting disease/condition affected by chronic disease/condition?: exacerbated by Evaluation data The following diagnostics were reviewed and interpreted by me:: lab results, radiology exam(s) and EKG tracing(s) (My interpretation: EKG performed at 1629 hours, sinus rhythm, rate 81, normal intervals, non specific ST-T wave changes, no cardiac alert) Lab and/or radiology exams considered but not ordered:: none Interpretation Summary: Procedure(s): XR chest 1V Accession Number(s): [id number] cc: Rory Meeks MD; COLLIN PERALTA; Kathie Mosqueda MD~ Examination: AP chest single view Technique one AP portable upright chest single view Date and time: November 02, 2024, 1647 hours, comparison October 31, 2024 INDICATIONS: Chest pain high blood pressure today. FINDINGS: Mild enlargement cardiac contour. Mild vascular congestion. Lobar pneumonia or pulmonary edema. Right internal jugular calcis catheter tip SVC IMPRESSION: Mild vascular congestion. Dictated By: Rory Meeks MD Medications / Prescriptions Medications or Prescriptions considered but not ordered:: none Medication administrations:: Medication Administration History Discontinued Medications Labetalol HCl (Labetalol Inj 5 Mg/Ml Vial 20 Ml) 10 mg IVP X1 ONE Stop: 11/02/24 15:37 Last Admin: 11/02/24 16:26 Dose: 10 mg Documented By: VL see above if any Consultations Consultation(s) initiated? (list below): No Diagnosis Differential diagnosis headache: other (Hypertensive urgency, intracranial hemorrhage or other intracranial pathology, and uremic encephalopathy.) Most likely diagnosis given after review of the tests above:: Abdominal pain Admission Indicated Admission indicated?: not indicated Admission Request Was there a request for admission?: No Disposition Plan Disposition Plan: other (specify) (Signed out) Discharge Plan Prescriptions/Referrals Prescriptions/Med Rec: No Action loratadine 10 mg tablet 10 mg PO QDAY Patient Comments: TAKE 1 TABLET BY MOUTH EVERY DAY insulin degludec [Tresiba FlexTouch U-200] 200 unit/mL (3 mL) insulin pen 45 unit SUBCUT QDAY losartan 50 mg tablet 50 mg PO QDAY Qty: 30 1RF losartan 100 mg tablet 100 mg PO DAILY Patient Comments: TAKE 1 TABLET BY MOUTH EVERY DAY sertraline 25 mg tablet 25 mg PO HS Patient Comments: TAKE 1 TABLET BY MOUTH AT BEDTIME oxycodone-acetaminophen [Percocet] 5-325 mg tablet 2 tab PO Q8H MDD 6 PRN (Reason: pain) Qty: 20 0RF clonidine HCl 0.1 mg tablet 0.1 mg PO BID Qty: 60 0RF alprazolam [Xanax] 0.25 mg tablet 0.25 mg PO BID PRN (Reason: anxiety) Qty: 10 0RF atorvastatin 20 mg tablet 20 mg PO HS benzonatate 100 mg capsule 100 mg PO TID Patient Comments: TAKE 1 CAPSULE BY MOUTH TWICE DAILY insulin aspart U-100 [Novolog FlexPen U-100 Insulin] 100 unit/mL (3 mL) insulin pen 6 unit SUBCUT TIDWM Patient Comments: INJECT 10 UNITS UNDER THE SKIN THREE TIMES DAILY WITH MEALS pentosan polysulfate sodium 100 mg capsule 100 mg PO TID Qty: 90 3RF ondansetron HCl 8 mg tablet 8 mg PO Q8H Patient Comments: TAKE 1 TABLET BY MOUTH EVERY 8 HOURS FOR 2 DAYS albuterol sulfate 90 mcg/actuation HFA aerosol inhaler 2 puff inhalation Q6H PRN (Reason: shortness of breath or wheezing) Qty: 8.5 0RF cefdinir 300 mg capsule 300 mg PO BID Qty: 14 0RF Referrals: Collin Peralta PA-C [Primary Care Provider] - In 1 week Problem List Clinical Impression: Abdominal pain Patient/Caregiver Discharge Instructions Print Language: Mauritian
--- NOTE | 2024-11-02 15:33 | EKG_ITS ---
[facility] Test Date: 2024-11-02 Pat Name: TYREE NOLASCO Department: Room: - Gender: Female Animal Care Provider: : 1940 Requested By: Kathie Simeon Order Number: [id number] Reading MD: Kathie Simeon Measurements Intervals [place] Rate: 81 P: 27 [place]: 164 QRS: 7 QRSD: 98 T: 57 QT: 361 QTc: 421 Interpretive Statements SINUS RHYTHM NONSPECIFIC T-WAVE ABNORMALITY Compared to ECG 10/18/2024 19:27:05 Sinus arrhythmia no longer present T-wave abnormality still present /store/S0/[id number]
--- NOTE | 2024-11-02 15:33 | XR_ITS ---
Examination: AP chest single view Technique one AP portable upright chest single view Date and time: November 02, 2024, 1647 hours, comparison October 31, 2024 INDICATIONS: Chest pain high blood pressure today. FINDINGS: Mild enlargement cardiac contour. Mild vascular congestion. Lobar pneumonia or pulmonary edema. Right internal jugular calcis catheter tip SVC IMPRESSION: Mild vascular congestion.
[2024-11-02 16:08] LABS: Basophils # (Auto) 0.1 Thou/mm3 (0.0-0.2); Basophils % (Auto) 1 % (0-2.5); Eosinophils # (Auto) 0.1 Thou/mm3 (0.0-0.5); Eosinophils % (Auto) 1 % (0-10); Hematocrit 34.1 % (36.0-46.0); Hemoglobin 10.8 g/dL (12.0-16.0); Immature Granulocytes Auto 0.07 Thou/mm3 (0.00-0.00); Lymphocytes # (Auto) 2.4 Thou/mm3 (1.0-4.8); Lymphocytes % (Auto) 19 % (10-50); Mean Corpuscular HGB Conc 31.7 g/dl (31.0-37.0); Mean Corpuscular Hemoglobin 28.2 pg (25.0-35.0); Mean Corpuscular Volume 89 fL (80-100); Monocytes # (Auto) 0.5 Thou/mm3 (0.0-0.8); Monocytes % (Auto) 4 % (0-12); Neutrophils # (Auto) 9.1 Thou/mm3 (1.8-7.7); Neutrophils % (Auto) 74 % (37-80); Nucleated Red Blood Cell # 0.00 Thou/mm3 (0.00-0.00); Nucleated Red Blood Cell % 0 /100 WBC (0); Platelet Count 216 Thou/mm3 (140-440); RDW Standard Deviation 45.8 fL (36.4-46.3); Red Blood Count 3.83 Miln/mm3 (4.00-5.20); White Blood Count 12.3 Thou/mm3 (3.6-11.0)
[2024-11-02] MEDS: LABETALOL INJ 5 MG/ML VIAL 20 ML 10 MG IVP (16:26)
[2024-11-02 16:32] LABS: INR 1.0 (0.9-1.3); Prothrombin Time 11.0 Seconds (9.0-12.2)
[2024-11-02 16:39] LABS: Alanine Aminotransferase 8 U/L (10-49); Albumin, Serum 4.0 gm/dL (3.4-4.8); Albumin/Globulin Ratio 1.7 (1.2-2.2); Alkaline Phosphatase 144 U/L (46-116); Anion Gap 9 (7-16); Aspartate Amino Transferase 13 U/L (0-34); BUN/Creatinine Ratio 11 Ratio (12-20); Bilirubin,Total 0.2 mg/dL (0.3-1.2); Blood Urea Nitrogen 33 mg/dL (9-23); Calcium 9.4 mg/dL (8.3-10.6); Calcium (Corrected) 9.4 mg/dL (8.5-10.1); Carbon Dioxide 25.0 mMol/L (20.0-31.0); Chloride 100 mMol/L (98-107); Creatinine (Component) 2.9 mg/dL (0.6-1.3); Estimated Creatinine Clearance 14.2 mL/min (>60); Globulin 2.3 gm/dL (2.3-3.5); Glucose 150 mg/dL (74-106); Lipase 42 U/L (12-53); Osmolality,Calculated 278 (275-295); Potassium 5.1 mMol/L (3.4-5.1); Sodium 134 mMol/L (136-145); Total Protein 6.3 gm/dL (5.7-8.2); Troponin I < 0.020 ng/mL (0.0-0.045); eGFR 16 See Note
[2024-11-02 17:52] LABS: Collection Type, Urine Clean Catch
[2024-11-02 18:07] LABS: Bacteria,Urine Rare; Bilirubin,Urine Negative (Negative); Blood,Urine Negative (Negative); Clarity,Urine Clear (Clear/Hazy); Color,Urine Colorless (Lt Yel-Yel); Culture Indicated,Urine Not Indicated; Glucose, Urine Trace (Negative); Ketones,Urine Negative (Negative); Leukocyte Esterase,Urine Negative (Negative); Nitrite,Urine Negative (Negative); PH,Urine 6.5 (5.0-7.0); Protein,Urine 2+ (Neg - Trace); RBC,Urine 2 /hpf (0-3); Specific Gravity,Urine 1.008 (1.001-1.035); Squamous Epithelial Cell,Urine 1 /hpf (0-5); Urobilinogen,Urine Negative mg/dL (0.0-1.0); WBC,Urine 2 /hpf (0-5)
--- NOTE | 2024-11-02 18:25 | XR_ITS ---
Examination: CT brain head without contrast. 2-D sagittal coronal reconstructions Date and time of exam:November 02, 2024 at 1858 hours INDICATIONS: Generalized set pain today. COMPARISON: October 31, 2024 CTDI: vol (mGy):48.2 DLP: (mGycm):951 Technique: Multiple CT axial sections of the brain have been obtained, 5 mm slice thickness. Contrast has not been administered. 2-D sagittal, coronal reconstructions have been obtained Low dose protocols were performed. One or more of the following dose reduction techniques were used; automated exposure control, adjustment of the mA and/or KV according to patient size, use of iterative reconstruction technique. Findings: No significant ventricular enlargement. Small old infarct left basal ganglia Intra-axial or extra-axial hemorrhage density is not seen. No mass effect or midline shift Basal cisterns are not remarkable. Fourth ventricle is midline. Cranial vault intact. Impression: Negative for acute hemorrhage, mass effect or midline shift
--- NOTE | 2024-11-02 18:36 | PC.NURSE ---
DR. MOSQUEDA AWARE OF HIGH BP PER MD PATIENT WILL NEED TO BE DIALYZED. MD UNSURE IF PATIENT BEING ADMITTED YET OR NOT. PATIENT MISSED HER DIALYSIS ON WEDNESDAY. PATIENT MADE AWARE OF PLAN OF CARE.
--- NOTE | 2024-11-02 18:40 | EDNOTE_ITS ---
Emergency Room Addendum <Hayley Shen - Last Filed: 11/02/24 20:01> Addendum Narrative: I took over the care from previous shift physician at 6 PM on 11/02/2024. See previous notes for complete H & P and ED course. I reviewed all diagnostic test results. My interpretation of the EKG is: Sinus rhythm (81 bpm) with nonspecific ST-T changes. Henry Dillard MD My interpretation of the chest x-ray is mild vascular congestion. My review of the Abdomen/Pelvis CT report is findings suspicious for pyelonephritis and cystitis. Blood tests and urine tests Covid/Influenza: Diagnoses include: Hypertension. Treatment here included Trandate 10 mg, Tylenol 650 mg. Based on my best medical judgment, made decision no further evaluation or treatment indicated at this time. Patient understands and agrees to the discharge instructions customized and printed, see below. Discharge instructions from Dr. Dillard: 1. After extensive evaluation, there is no life-threatening condition. Such as stroke or brain tumor or heart attack or pneumothorax (collapsed lung). 2. For your high blood pressure: Take Clonidine 0.1 mg pill(s) every 12 hours as needed based on SBP (higher number of BP). SBP > 140, take one pill. SBP > 160, take two pills. SBP > 180, take three pills. SBP > 200, take four pills. 3. We need to lower BP to prevent future heart attacks and strokes. 4. See a private doctor on 11/03/2024 for recheck. Ask to review all test results and official radiology reports, to make sure you receive all necessary follow-ups and monitoring. To make sure there is no serious underlying heart condition, ask to help you get more tests for your heart that cannot be done here in the ER. Such as Holter Monitor (cardiac monitoring at home from a day to even a month), heart stress test (on treadmill or with medication), echocardiogram (imaging of your heart structures), heart catherization (checking for blockages in your heart arteries), and a referral to see a Community Service Director. 5. Seek immediate medical care with worsening or with any concerns. Henry Dillard MD <Henry Dillard MD - Last Filed: 11/04/24 17:14> Addendum Narrative: I took over the care from previous shift physician at 6 PM on 11/02/2024. See previous notes for complete H & P and ED course. I reviewed all diagnostic test results. My interpretation of the EKG is: Sinus rhythm (81 bpm) with nonspecific ST-T changes. Henry Dillard MD My interpretation of the chest x-ray is no change from yesterday's CXR. My review of the Abdomen/Pelvis CT report is NAD. Blood tests and urine tests unremarkable. Covid/Influenza negative. Diagnoses include: Hypertension. Treatment here included Losartan 50 mg and Tylenol 650 mg. BP improved and she felt much better. Recommended outpatient management. Based on my best medical judgment, made decision no further evaluation or treatment indicated at this time. Patient understands and agrees to the discharge instructions customized and printed, see below. Discharge instructions from Dr. Dillard: 1. After extensive evaluation, there is no life-threatening condition. Such as stroke or brain tumor or heart attack or pneumothorax (collapsed lung). 2. For your high blood pressure: Take Clonidine 0.1 mg pill(s) every 12 hours as needed based on SBP (higher number of BP). SBP > 140, take one pill. SBP > 160, take two pills. SBP > 180, take three pills. SBP > 200, take four pills. 3. We need to lower BP to prevent future heart attacks and strokes. 4. See a private doctor on 11/03/2024 for recheck. Ask to review all test results and official radiology reports, to make sure you receive all necessary follow-ups and monitoring. To make sure there is no serious underlying heart condition, ask to help you get more tests for your heart that cannot be done here in the ER. Such as Holter Monitor (cardiac monitoring at home from a day to even a month), heart stress test (on treadmill or with medication), echocardiogram (imaging of your heart structures), heart catherization (checking for blockages in your heart arteries), and a referral to see a Community Service Director. 5. Seek immediate medical care with worsening or with any concerns. Henry Dillard MD
--- NOTE | 2024-11-02 18:46 | PC.NURSE ---
PATIENT UPSET CRYING STATING SHE WOULD LIKE SOME WATER OR WARM TEA. PATIENT MADE AWARE WE ARE PENDING A CT OF HER ABDOMEN SINCE SHE CAME IN FOR NAUSEA. PATIENT AGREES
--- NOTE | 2024-11-02 18:59 | XR_ITS ---
Examination: CT abdomen and pelvis without contrast. Coronal 3-D reconstructions. Sagittal 2-D reconstructions. Date and time of exam:November 02, 2024, 1903 hours, comparison October 31, 2024 INDICATIONS: Generalized abdominal pain today CTDI: vol (mGy): 8.84 DLP: (mGycm): 485 Technique: Axial images of the abdomen have been obtained, 3 mm slice thickness Intravenous contrast material has not been administered. Low dose protocols were performed. One or more of the following dose reduction techniques were used; automated exposure control, adjustment of the mA and/or KV according to patient size, use of iterative reconstruction technique. Findings: No focal liver or splenic lesions Absent gallbladder No extrahepatic biliary tract dilatation Normal pancreas Minimal nodular thickening of the adrenal glands. Moderate bilateral renal parenchymal scar formation Minimal dilatation of the renal collecting systems with wall thickening, mild including mild thickening of the ureters, greater on the right side, without ureteral calculi, consistent with pyelonephritis Abdominal aortic calcification No pericecal inflammatory changes No bowel obstruction Colonic diverticulosis, no diverticulitis Absent uterus Urinary bladder wall thickening up to 5 mm Severe osteopenia IMPRESSION: Findings suspicious for pyelonephritis and cystitis
[2024-11-02] MEDS: ACETAMINOPHEN 325 MG TABLET 650 MG PO (19:36)
--- NOTE | 2024-11-02 20:10 | PC.NURSE ---
Notify Dr Dillard of [facility] not approved due to potassium 5.1 per pharmacy-DR Dillard states okay discharge without medication given b/p 176/63
== END 2024-11-02 20:30 | disposition home or self-care (01) ==
PROVIDERS: Emergency Medicine; Emergency Provider Emergency Medicine; PCP Physician Assistant
DX: R10.9 Unspecified abdominal pain (principal); R09.89 Other specified symptoms and signs involving the circulatory and respiratory systems; R10.2 Pelvic and perineal pain; R51.9 Headache, unspecified; I12.0 Hypertensive chronic kidney disease with stage 5 chronic kidney disease or end stage renal disease; E11.22 Type 2 diabetes mellitus with diabetic chronic kidney disease; N18.6 End stage renal disease; E78.00 Pure hypercholesterolemia, unspecified; I25.2 Old myocardial infarction; J44.9 Chronic obstructive pulmonary disease, unspecified; Z99.2 Dependence on renal dialysis; Z91.158 Patient's noncompliance with renal dialysis for other reason; Z88.0 Allergy status to penicillin; Z88.5 Allergy status to narcotic agent; Z88.6 Allergy status to analgesic agent; Z88.1 Allergy status to other antibiotic agents; Z91.048 Other nonmedicinal substance allergy status
CPT/HCPCS: 36415; 70450; 71045; 74176; 80053; 81001; 83690; 84484; 85025; 85610; 93005; 99283; J3490; A9270; J1920

== ENCOUNTER 2024-11-03 21:34 | Emergency (ER) | payer MEDICARE, MEDICAID, SELFPAY ==
[2024-11-03 21:37] VITALS: BP 169/104; PULSE 91; RESP 18; TEMP 37; O2SAT 95; BMI 30.9
[2024-11-03 21:39] VITALS: BMI 30.9
--- NOTE | 2024-11-03 21:39 | XR_ITS ---
Examination: AP chest single view TECHNIQUE: AP portable upright chest single view Date and time: November 03, 2024, 215 hours, comparison November 02, 2024 INDICATIONS: Chest pain shortness of breath today. FINDINGS: Bibasilar opacity consistent with pneumonia Minor prominence left ventricle Mild vascular congestion. Right internal jugular dialysis catheter satisfactory position IMPRESSION: Bibasilar pneumonia.
--- NOTE | 2024-11-03 21:39 | EKG_ITS ---
[facility] Test Date: 2024-11-03 Pat Name: TYREE NOLASCO Department: Room: - Gender: Female Ingot Supervisor: : 1940 Requested By: Mally Haji Order Number: [id number] Reading MD: Mally Haji Measurements Intervals [place] Rate: 90 P: 14 [place]: 135 QRS: 7 QRSD: 88 T: 60 QT: 364 QTc: 447 Interpretive Statements SINUS RHYTHM NONSPECIFIC T-WAVE ABNORMALITY Compared to ECG 11/02/2024 16:29:25 No significant changes /store/S0/[id number]/[id number]
--- NOTE | 2024-11-03 21:40 | PD.EDRME ---
Rapid Medical Screening Exam RME Arrival date/time: 11/03/24 21:34 Chief Complaint: Weakness Vital signs: Vital Signs Temperature 98.6 F 11/03/24 21:37 Pulse Rate 91 11/03/24 21:37 Respiratory Rate 18 11/03/24 21:37 Blood Pressure 169/104 H 11/03/24 21:37 Pulse Oximetry (%) 95 11/03/24 21:37 Oxygen Delivery Method Room Air 11/03/24 21:37 RME Narrative: 83 year old female brought in by EMS after she developed chest pain and abdominal pain at 18:00 today. She has a history of severe anxiety, HTN, DM and ESRD. She has dialysis performed Wednesday and Wednesday. She finsihed her run today. Patient is anxious appearing but non-toxic appearing. VSS. Work up intiated, medical screening exam complete.
[2024-11-03 22:22] LABS: Basophils # (Auto) 0.1 Thou/mm3 (0.0-0.2); Basophils % (Auto) 1 % (0-2.5); Eosinophils # (Auto) 0.1 Thou/mm3 (0.0-0.5); Eosinophils % (Auto) 1 % (0-10); Hematocrit 33.9 % (36.0-46.0); Hemoglobin 10.9 g/dL (12.0-16.0); Immature Granulocytes Auto 0.07 Thou/mm3 (0.00-0.00); Lymphocytes # (Auto) 2.3 Thou/mm3 (1.0-4.8); Lymphocytes % (Auto) 18 % (10-50); Mean Corpuscular HGB Conc 32.2 g/dl (31.0-37.0); Mean Corpuscular Hemoglobin 28.5 pg (25.0-35.0); Mean Corpuscular Volume 89 fL (80-100); Monocytes # (Auto) 0.7 Thou/mm3 (0.0-0.8); Monocytes % (Auto) 6 % (0-12); Neutrophils # (Auto) 9.3 Thou/mm3 (1.8-7.7); Neutrophils % (Auto) 74 % (37-80); Nucleated Red Blood Cell # 0.00 Thou/mm3 (0.00-0.00); Nucleated Red Blood Cell % 0 /100 WBC (0); Platelet Count 215 Thou/mm3 (140-440); RDW Standard Deviation 46.3 fL (36.4-46.3); Red Blood Count 3.82 Miln/mm3 (4.00-5.20); White Blood Count 12.5 Thou/mm3 (3.6-11.0)
[2024-11-03 22:37] LABS: B-Type Natriuretic Peptide 80 pg/mL (0-100)
[2024-11-03 22:39] LABS: Alanine Aminotransferase 8 U/L (10-49); Albumin, Serum 4.0 gm/dL (3.4-4.8); Albumin/Globulin Ratio 1.4 (1.2-2.2); Alkaline Phosphatase 163 U/L (46-116); Anion Gap 8 (7-16); Aspartate Amino Transferase 13 U/L (0-34); BUN/Creatinine Ratio 8 Ratio (12-20); Bilirubin,Total 0.2 mg/dL (0.3-1.2); Blood Urea Nitrogen 17 mg/dL (9-23); Calcium 9.1 mg/dL (8.3-10.6); Calcium (Corrected) 9.1 mg/dL (8.5-10.1); Carbon Dioxide 30.9 mMol/L (20.0-31.0); Chloride 96 mMol/L (98-107); Creatinine (Component) 2.1 mg/dL (0.6-1.3); Estimated Creatinine Clearance 19.4 mL/min (>60); Globulin 2.8 gm/dL (2.3-3.5); Glucose 203 mg/dL (74-106); Lipase 46 U/L (12-53); Magnesium 2.2 mg/dL (1.6-2.6); Osmolality,Calculated 277 (275-295); Potassium 4.7 mMol/L (3.4-5.1); Sodium 135 mMol/L (136-145); Total Protein 6.8 gm/dL (5.7-8.2); eGFR 23 See Note
--- NOTE | 2024-11-03 22:51 | PC.NURSE ---
PT SIGNING OUT AMA. PT REPORTS FEELING BETTER AFTER HAVING A BOWEL MOVEMENT. PT DOES NOT WANT TO WAIT FOR RESULTS. PT AND DAUGHTER ENCOURAGED TO STAY AND WAIT. INFORMED TO RETURN FOR ANY WORSENING OF SYMPTOMS. VERBALIZED UNDERSTANDING. PROVIDER RATTS MADE AWARE PT WANTING TO LEAVE.
== END 2024-11-03 22:55 | disposition left against medical advice (07) ==
LOC: SERX 23:19
PROVIDERS: Physician Assistant Medical; Emergency Provider Emergency Medicine
DX: R53.1 Weakness (principal); R07.9 Chest pain, unspecified; R10.9 Unspecified abdominal pain; F41.9 Anxiety disorder, unspecified; E11.22 Type 2 diabetes mellitus with diabetic chronic kidney disease; I12.0 Hypertensive chronic kidney disease with stage 5 chronic kidney disease or end stage renal disease; N18.6 End stage renal disease; Z53.29 Procedure and treatment not carried out because of patient's decision for other reasons; Z99.2 Dependence on renal dialysis
CPT/HCPCS: 36415; 71045; 80053; 81001; 83690; 83735; 83880; 85025; 93005; 99283

== ENCOUNTER 2024-11-05 09:54 | Emergency (ER) | payer MEDICARE, MEDICAID, SELFPAY ==
[2024-11-05 09:58] VITALS: BP 214/83; PULSE 89; RESP 18; TEMP 36.6; O2SAT 95; BMI 30.9
[2024-11-05 10:11] VITALS: PULSE 88; RESP 20; O2SAT 96; BMI 29.1
--- NOTE | 2024-11-05 10:51 | PD.EDABDPN ---
ED Abdominal Pain RME/HPI General Chief Complaint: Abdominal Pain Stated complaint: BACK PAIN Time seen by provider: 11/05/24 09:58 Arrival date/time: 11/05/24 09:54 Limitations: no limitations RME / HPI RME / HPI narrative: 83 year old female with history of hypertension, diabetes, ESRD on HD (Wednesday and Wednesday) followed by Dr. Brito presents to the ED BIBA for evaluation of back pain and dysuria beginning several days ago. Accompanied by urinary frequency. Patient reports she was evaluated here 3 days ago for abdominal pain; however, pain today is new and different. Denies fevers, chills, sweats, hematuria. Related Data Home Medications ?Medication ?Instructions ?Recorded ?Confirmed loratadine 10 mg tablet 10 mg PO QDAY 04/22/21 08/31/24 insulin degludec 200 unit/mL (3 45 unit subcut QDAY 08/12/21 08/31/24 mL) subcutaneous pen (Tresiba FlexTouch U-200 insulin) atorvastatin 20 mg tablet 20 mg PO HS 03/11/22 08/31/24 benzonatate 100 mg capsule 100 mg PO TID 03/11/22 08/31/24 insulin aspart U-100 100 unit/mL 6 unit subcut TIDWM 03/11/22 08/31/24 (3 mL) subcutaneous pen (Novolog FlexPen U-100 Insulin aspart) losartan 100 mg tablet 100 mg PO DAILY for BP 04/27/24 08/31/24 sertraline 25 mg tablet 25 mg PO HS 04/28/24 08/31/24 ondansetron HCl 8 mg tablet 8 mg PO Q8H 08/31/24 08/31/24 Previous Rx's ?Medication ?Instructions ?Recorded losartan 50 mg tablet 50 mg PO QDAY #30 tabs 05/25/23 pentosan polysulfate sodium 100 mg 100 mg PO TID #90 caps 09/21/23 capsule oxycodone-acetaminophen 5 mg-325 2 tab PO Q8H PRN pain #20 tabs 06/04/24 mg tablet (Percocet) albuterol sulfate 90 mcg/actuation 2 puff inhalation Q6H PRN 10/19/24 aerosol inhaler shortness of breath or wheezing #8.5 grams cefdinir 300 mg capsule 300 mg PO BID #14 caps 10/19/24 alprazolam 0.25 mg tablet (Xanax) 0.25 mg PO BID PRN anxiety #10 tabs 10/31/24 clonidine HCl 0.1 mg tablet 0.1 mg PO BID #60 tabs 10/31/24 clonidine HCl 0.1 mg tablet 0.1 mg PO BID #60 tabs 11/02/24 Allergies Allergy/AdvReac Type Severity Reaction Status Date / Time amoxicillin Allergy Severe Vomiting Verified 11/03/24 21:37 codeine Allergy Severe PALPITATION Verified 11/03/24 21:37 S diazepam Allergy Severe RAPID Verified 11/03/24 21:37 HEARTRATE hydrocodone Allergy Severe Vomiting Verified 11/03/24 21:37 hydromorphone Allergy Severe Agitated Verified 11/03/24 21:37 ibuprofen Allergy Severe BLEEDING Verified 11/03/24 21:37 IN STOMACH PER PT meperidine Allergy Severe RAPID Verified 11/03/24 21:37 HEARTRATE morphine Allergy Severe RAPID Verified 11/03/24 21:37 HEARTRATE propoxyphene Allergy Severe RAPID Verified 11/03/24 21:37 HEARTRATE adhesive tape AdvReac Severe Hives Verified 11/03/24 21:37 levofloxacin AdvReac Severe VOMITS Verified 11/03/24 21:37 Review of Systems Review of Systems Systems Reviewed: All systems reviewed, normal except as documented Past Medical History Past Medical History NEUROLOGIC: Positive Traumatic Brain Injury CARDIAC: Positive Cardiac Disorders (CHF), Myocardial Infarction, Angina, Hypercholesterolemia, Edema, Deep Vein Thrombosis and Hypertension RESPIRATORY: Positive Asthma, Bronchitis and Pneumonia GASTROINTESTINAL: Positive Gastrointestinal Disorders, Gastroesophageal Reflux Disease and Obesity GENITOURINARY: Positive Genitourinary Disorders and Renal Disease (DIALYSIS PATIENT) REPRODUCTIVE: Positive Previous Pregnancies MUSCULOSKELETAL: Positive Musculoskeletal Disorders and Arthritis ENDOCRINE: Positive Endocrine Disorders and Diabetes Mellitus Type 2 HEMATOLOGIC: Positive Blood Disorders and Anemia PSYCHO/SOCIAL: Positive Anxiety OTHER HISTORY: Positive Hospitalization, Blood Transfusions, Chicken Pox, Measles and Mumps Family History FAMILY HISTORY: Positive Family Respiratory Disorders, Family Cardiac Disorders and Family Cancer Surgical History SURGICAL: Positive Angiogram, Abdominal Surgery, Joint Replacement and Hysterectomy Social History SMOKING STATUS: Never smoker SECOND HAND EXPOSURE: No SUBSTANCE USE: does not use ED Exam General Limitations: Present no limitations General appearance: Present alert, in no apparent distress and obese Head Head exam: Present atraumatic and normocephalic Eye Eye exam: Present normal appearance, PERRL and EOMI ENT ENT exam: Present normal exam, normal oropharynx and mucous membranes moist Neck Neck exam: Present normal inspection, full ROM and trachea midline Chest Chest inspection: Present symmetric chest wall rise and other (Right chest temporary dialysis catheter ) Respiratory Respiratory exam: Present normal lung sounds bilaterally Cardiovascular Cardiovascular exam: Present regular rate, normal rhythm and normal heart sounds Abdominal Exam Abdominal exam: Present soft and normal bowel sounds Extremities Exam Extremities exam: Present normal inspection and full ROM Back Exam Back exam: Present normal inspection and full ROM Neurological Exam Neurological exam: Present alert, oriented X3 and CN II-XII intact Psychiatric Psychiatric exam: Present normal affect and normal mood Skin Skin exam: Present warm, dry, intact and normal color Course Quality Measures none Orders Category Date Time Status Urinalysis, C/S if Indicated Stat Lab 11/05/24 11:35 Completed Vital Signs Vital signs: Vital Signs Temperature 97.8 F 11/05/24 09:58 Pulse Rate 89 11/05/24 09:58 Respiratory Rate 18 11/05/24 09:58 Blood Pressure 214/83 H 11/05/24 09:58 Pulse Oximetry (%) 95 11/05/24 09:58 Oxygen Delivery Method Room Air 11/05/24 09:58 Pulse ox is 95% on room air which is adequate. Abdominal Pain MDM MDM Narrative MDM Narrative:: Sherly Rooney am scribing for and in the presence of Dr. Mclean. 1240h: Patient remains clinically stable throughout the emergency department visit. We reviewed all the results, analysis, and treatment plans. Patient is amenable to discharge. Strict return precautions were outlined. Patient was discharged in stable condition. Patient data External records reviewed:: [facility] previous records (I reviewed ED visit from 11/02/2024 ) and EMS form Clinical information provided by:: patient and EMS Social determinants that could affect healthcare access:: none Patient has the following chronic illnesses:: hypertension, diabetes, ESRD on HD (Wednesday and Wednesday) followed by Dr. Brito How is presenting disease/condition affected by chronic disease/condition?: exacerbated by Evaluation data The following diagnostics were reviewed and interpreted by me:: lab results Lab and/or radiology exams considered but not ordered:: None Interpretation Summary: UA shows no signs of infection Medications / Prescriptions Medications or Prescriptions considered but not ordered:: none Medication administrations:: None Consultations Consultation(s) initiated? (list below): No Diagnosis Differential diagnosis abdominal pain: abdominal pain, calculus of kidney and other (pyelonephritis, cystitis ) Most likely diagnosis given after review of the tests above:: Dysuria Back pain Admission Indicated Admission indicated?: not indicated Admission Request Was there a request for admission?: No Disposition Plan Disposition Plan: Discharge Discharge Attestation Discharge Attestation: The patient and all family members were given an opportunity to ask questions and understood the discharge instructions. Discharge instructions specifically effects, indications for sooner follow up or return to the emergency department, and the expected course of current diagnosis. Patient condition: Stable Discharge Plan Plan Patient Disposition: HOME (Self Care) Discharge Disposition comment: Stable for discharge home Patient condition on transfer: Stable Prescriptions/Referrals Prescriptions/Med Rec: No Action loratadine 10 mg tablet 10 mg PO QDAY Patient Comments: TAKE 1 TABLET BY MOUTH EVERY DAY insulin degludec [Tresiba FlexTouch U-200] 200 unit/mL (3 mL) insulin pen 45 unit SUBCUT QDAY losartan 50 mg tablet 50 mg PO QDAY Qty: 30 1RF losartan 100 mg tablet 100 mg PO DAILY Patient Comments: TAKE 1 TABLET BY MOUTH EVERY DAY sertraline 25 mg tablet 25 mg PO HS Patient Comments: TAKE 1 TABLET BY MOUTH AT BEDTIME oxycodone-acetaminophen [Percocet] 5-325 mg tablet 2 tab PO Q8H MDD 6 PRN (Reason: pain) Qty: 20 0RF clonidine HCl 0.1 mg tablet 0.1 mg PO BID Qty: 60 0RF alprazolam [Xanax] 0.25 mg tablet 0.25 mg PO BID PRN (Reason: anxiety) Qty: 10 0RF clonidine HCl 0.1 mg tablet 0.1 mg PO BID Qty: 60 0RF atorvastatin 20 mg tablet 20 mg PO HS benzonatate 100 mg capsule 100 mg PO TID Patient Comments: TAKE 1 CAPSULE BY MOUTH TWICE DAILY insulin aspart U-100 [Novolog FlexPen U-100 Insulin] 100 unit/mL (3 mL) insulin pen 6 unit SUBCUT TIDWM Patient Comments: INJECT 10 UNITS UNDER THE SKIN THREE TIMES DAILY WITH MEALS pentosan polysulfate sodium 100 mg capsule 100 mg PO TID Qty: 90 3RF ondansetron HCl 8 mg tablet 8 mg PO Q8H Patient Comments: TAKE 1 TABLET BY MOUTH EVERY 8 HOURS FOR 2 DAYS albuterol sulfate 90 mcg/actuation HFA aerosol inhaler 2 puff inhalation Q6H PRN (Reason: shortness of breath or wheezing) Qty: 8.5 0RF cefdinir 300 mg capsule 300 mg PO BID Qty: 14 0RF Referrals: Collin Herrera PA-C [Primary Care Provider] - In 1 week Problem List Clinical Impression: Dysuria, Back pain Patient/Caregiver Discharge Instructions Discharge Activity: activity as tolerated Other Activity Instructions:: As tolerated Diet Instructions: No restrictions Education Materials: ED Back Care Tips, ED Back Pain (Acute or Chronic), ED Dysuria, Uncertain Cause (Adult) Additional Instructions: Today you were seen in the emergency department for dysuria and lower back pain. Luckily your urine shows no signs of infection or bleeding. So you do not need antibiotics please take [id number] Tylenol for pain at home for pain. Please return to the emergency department if you have any worsening or any further medical problems we will help you. Otherwise you should follow-up with your primary care doctor within the next several days. Print Language: Gambian Stand Alone Forms: [facility] Info., Patient Portal Info Letter
[2024-11-05 11:57] LABS: Collection Type, Urine Catheter
[2024-11-05 12:19] LABS: Bilirubin,Urine Negative (Negative); Blood,Urine Negative (Negative); Clarity,Urine Clear (Clear/Hazy); Color,Urine Colorless (Lt Yel-Yel); Culture Indicated,Urine Not Indicated; Glucose, Urine 1+ (Negative); Ketones,Urine Negative (Negative); Leukocyte Esterase,Urine Negative (Negative); Nitrite,Urine Negative (Negative); PH,Urine 7.0 (5.0-7.0); Protein,Urine 1+ (Neg - Trace); RBC,Urine 1 /hpf (0-3); Specific Gravity,Urine 1.006 (1.001-1.035); Squamous Epithelial Cell,Urine 1 /hpf (0-5); Urobilinogen,Urine Negative mg/dL (0.0-1.0); WBC,Urine 2 /hpf (0-5)
== END 2024-11-05 13:04 | disposition home or self-care (01) ==
PROVIDERS: Emergency Provider Emergency Medicine; PCP Physician Assistant
DX: R30.0 Dysuria (principal); M54.9 Dorsalgia, unspecified; E11.22 Type 2 diabetes mellitus with diabetic chronic kidney disease; I12.0 Hypertensive chronic kidney disease with stage 5 chronic kidney disease or end stage renal disease; N18.6 End stage renal disease; Z99.2 Dependence on renal dialysis
CPT/HCPCS: 81001; 99282

== ENCOUNTER 2024-11-06 13:16 | Emergency (ER) | payer MEDICARE, MEDICAID, SELFPAY ==
[2024-11-06 13:20] VITALS: BP 194/95; PULSE 85; RESP 18; TEMP 36.9; O2SAT 95
--- NOTE | 2024-11-06 13:36 | PD.EDABDPN ---
ED Abdominal Pain RME/HPI General Chief Complaint: Abdominal Pain Stated complaint: ABDOMINAL PAIN Time seen by provider: 11/06/24 13:29 Arrival date/time: 11/06/24 13:16 Limitations: no limitations RME / HPI RME / HPI narrative: 83 year old female with history of hypertension, diabetes, ESRD on HD (Wednesday and Wednesday) followed by Dr. Brito presents to the ED BIBA from home for evaluation of abdominal pain today. Reports pain is unchanged since onset ~1 week ago. Accompanied by nausea and vomiting. Additionally complains of sore throat and my lungs hurt . Per EMR, patient had been evaluated here twice since onset, 11/02/2024 and 11/05/2024 where her work-up was unremarkable for acute findings and discharged home. Denies fevers, chills, chest pain, cough, shortness of breath, or urinary symptoms. Related Data Home Medications ?Medication ?Instructions ?Recorded ?Confirmed loratadine 10 mg tablet 10 mg PO QDAY 04/22/21 08/31/24 insulin degludec 200 unit/mL (3 45 unit subcut QDAY 08/12/21 08/31/24 mL) subcutaneous pen (Tresiba FlexTouch U-200 insulin) atorvastatin 20 mg tablet 20 mg PO HS 03/11/22 08/31/24 benzonatate 100 mg capsule 100 mg PO TID 03/11/22 08/31/24 insulin aspart U-100 100 unit/mL 6 unit subcut TIDWM 03/11/22 08/31/24 (3 mL) subcutaneous pen (Novolog FlexPen U-100 Insulin aspart) losartan 100 mg tablet 100 mg PO DAILY for BP 04/27/24 08/31/24 sertraline 25 mg tablet 25 mg PO HS 04/28/24 08/31/24 ondansetron HCl 8 mg tablet 8 mg PO Q8H 08/31/24 08/31/24 Previous Rx's ?Medication ?Instructions ?Recorded losartan 50 mg tablet 50 mg PO QDAY #30 tabs 05/25/23 pentosan polysulfate sodium 100 mg 100 mg PO TID #90 caps 09/21/23 capsule oxycodone-acetaminophen 5 mg-325 2 tab PO Q8H PRN pain #20 tabs 06/04/24 mg tablet (Percocet) albuterol sulfate 90 mcg/actuation 2 puff inhalation Q6H PRN 10/19/24 aerosol inhaler shortness of breath or wheezing #8.5 grams cefdinir 300 mg capsule 300 mg PO BID #14 caps 10/19/24 alprazolam 0.25 mg tablet (Xanax) 0.25 mg PO BID PRN anxiety #10 tabs 10/31/24 clonidine HCl 0.1 mg tablet 0.1 mg PO BID #60 tabs 10/31/24 clonidine HCl 0.1 mg tablet 0.1 mg PO BID #60 tabs 11/02/24 cephalexin 500 mg capsule 500 mg PO QID #20 caps 11/06/24 Allergies Allergy/AdvReac Type Severity Reaction Status Date / Time amoxicillin Allergy Severe Vomiting Verified 11/06/24 13:55 codeine Allergy Severe PALPITATION Verified 11/06/24 13:55 S diazepam Allergy Severe RAPID Verified 11/06/24 13:55 HEARTRATE hydrocodone Allergy Severe Vomiting Verified 11/06/24 13:55 hydromorphone Allergy Severe Agitated Verified 11/06/24 13:55 ibuprofen Allergy Severe BLEEDING Verified 11/06/24 13:55 IN STOMACH PER PT meperidine Allergy Severe RAPID Verified 11/06/24 13:55 HEARTRATE morphine Allergy Severe RAPID Verified 11/06/24 13:55 HEARTRATE propoxyphene Allergy Severe RAPID Verified 11/06/24 13:55 HEARTRATE adhesive tape AdvReac Severe Hives Verified 11/06/24 13:55 levofloxacin AdvReac Severe VOMITS Verified 11/06/24 13:55 Review of Systems Review of Systems Systems Reviewed: All systems reviewed, normal except as documented Past Medical History Past Medical History NEUROLOGIC: Positive Traumatic Brain Injury CARDIAC: Positive Cardiac Disorders (CHF), Myocardial Infarction, Angina, Hypercholesterolemia, Edema, Deep Vein Thrombosis and Hypertension RESPIRATORY: Positive Asthma, Bronchitis and Pneumonia GASTROINTESTINAL: Positive Gastrointestinal Disorders, Gastroesophageal Reflux Disease and Obesity GENITOURINARY: Positive Genitourinary Disorders and Renal Disease (DIALYSIS PATIENT) REPRODUCTIVE: Positive Previous Pregnancies MUSCULOSKELETAL: Positive Musculoskeletal Disorders and Arthritis ENDOCRINE: Positive Endocrine Disorders and Diabetes Mellitus Type 2 HEMATOLOGIC: Positive Blood Disorders and Anemia PSYCHO/SOCIAL: Positive Anxiety OTHER HISTORY: Positive Hospitalization, Blood Transfusions, Chicken Pox, Measles and Mumps Family History FAMILY HISTORY: Positive Family Respiratory Disorders, Family Cardiac Disorders and Family Cancer Surgical History SURGICAL: Positive Angiogram, Abdominal Surgery, Joint Replacement and Hysterectomy Social History SMOKING STATUS: Never smoker SECOND HAND EXPOSURE: No SUBSTANCE USE: does not use ED Exam General Limitations: Present no limitations General appearance: Present alert and in no apparent distress Head Head exam: Present atraumatic, normocephalic and normal inspection Eye Eye exam: Present normal appearance, PERRL and EOMI ENT ENT exam: Present normal exam, normal oropharynx and mucous membranes moist Neck Neck exam: Present normal inspection, full ROM and trachea midline Chest Chest inspection: Present normal inspection and symmetric chest wall rise Respiratory Respiratory exam: Present normal lung sounds bilaterally Cardiovascular Cardiovascular exam: Present regular rate, normal rhythm and normal heart sounds Abdominal Exam Abdominal exam: Present soft and normal bowel sounds; Absent distention, tenderness, guarding, rebound or rigidity Extremities Exam Extremities exam: Present normal inspection and full ROM Back Exam Back exam: Present normal inspection and full ROM Neurological Exam Neurological exam: Present alert, oriented X3 and CN II-XII intact Psychiatric Psychiatric exam: Present normal affect and normal mood Skin Skin exam: Present warm, dry, intact and normal color Course Quality Measures none Orders Category Date Time Status Bedside COVID-19 Antigen Test NOW Care 11/06/24 16:24 Completed CXR [XR chest 1V] Stat Exams 11/06/24 13:39 Completed CBC Stat Lab 11/06/24 14:30 Completed CMP [Comprehensive Metabolic Panel] Stat Lab 11/06/24 14:30 Completed Lipase Stat Lab 11/06/24 14:30 Completed Troponin I Stat Lab 11/06/24 14:30 Completed UA, C/S IF [Urinalysis, C/S if Indicated] Stat Lab 11/06/24 16:20 Completed Urine Culture Stat Lab 11/06/24 16:20 Completed Acetaminophen Tab [Tylenol Tab] Med 11/06/24 16:25 Discontinued 650 mg PO X1 ONE Labetalol IV [Trandate IV] Med 11/06/24 13:38 Discontinued 10 mg IVP X1 ONE Ondansetron Odt [Zofran Odt] Med 11/06/24 13:38 Discontinued 4 mg PO X1 ONE cefTRIAXone [Rocephin] 1,000 mg Med 11/06/24 17:30 Discontinued Lidocaine 1% 20 ml [Xylocaine 1% 20 ML] 2.1 ml IM X1 Vital Signs Vital signs: Vital Signs Temperature 98.5 F 11/06/24 13:20 Pulse Rate 85 11/06/24 13:20 Respiratory Rate 18 11/06/24 13:20 Blood Pressure 194/95 H 11/06/24 13:20 Pulse Oximetry (%) 95 11/06/24 13:20 Oxygen Delivery Method Room Air 11/06/24 13:20 Pulse ox is 95% on room air which is adequate. Abdominal Pain MDM MDM Narrative MDM Narrative:: Labs without acute hematologic abnormality, no significant electrolyte abnormality, patient is on room air, no evidence of fluid overload, troponin not elevated, chest x-ray unremarkable. CT abdomen pelvis with evidence of cystitis. Urinalysis with evidence of possible urinary tract infection. Provided patient with a dose of antibiotics will send home a course of antibiotics on reevaluation patient hemodynamically stable not in distress. Patient data External records reviewed:: [facility] previous records (I reviewed yesterdays ED visit ) and EMS form Clinical information provided by:: patient and EMS Social determinants that could affect healthcare access:: none Patient has the following chronic illnesses:: hypertension, diabetes, ESRD on HD (Wednesday and Wednesday) followed by Dr. Brito How is presenting disease/condition affected by chronic disease/condition?: exacerbated by Evaluation data The following diagnostics were reviewed and interpreted by me:: lab results and radiology exam(s) Lab and/or radiology exams considered but not ordered:: None Interpretation Summary: Ordering Physician: Kathie Pete MD Date of Service: 11/06/24 Procedure(s): XR chest 1V Accession Number(s): [id number] cc: Rory Meeks MD; Kathie Pete MD~ Examination: AP chest single view Technique AP portable upright chest single view Date and time: 2024, 1407 hours, comparison November 03, 2024 INDICATIONS: Chest pain today. FINDINGS: Normal heart size No pneumonia pulmonary edema. Dialysis catheter satisfactory position. IMPRESSION: No pneumonia or pulmonary edema. Dictated By: Rory Meeks MD Signed By: <Electronically signed by Rory Meeks MD in OV> 11/06/24 1434 Medications / Prescriptions Medications or Prescriptions considered but not ordered:: None Medication administrations:: Medication Administration History Discontinued Medications Acetaminophen (Acetaminophen 325 Mg Tablet) 650 mg PO X1 ONE Stop: 11/06/24 16:26 Last Admin: 11/06/24 17:11 Dose: 650 mg Documented By: ARF Ceftriaxone Sodium 1,000 mg/ (Lidocaine HCl 2.1 ml) 0 mg IM X1 ONE Stop: 11/06/24 17:31 Last Admin: 11/06/24 18:34 Dose: 1 mg Documented By: ARF Labetalol HCl (Labetalol Inj 5 Mg/Ml Vial 20 Ml) 10 mg IVP X1 ONE Stop: 11/06/24 13:39 Last Admin: 11/06/24 16:36 Dose: Not Given Documented By: ARF Non-Admin Reason: Patient Refused Ondansetron HCl (Ondansetron Odt 4 Mg Tabrap) 4 mg PO X1 ONE; Protocol Stop: 11/06/24 13:39 Last Admin: 11/06/24 17:12 Dose: 4 mg Documented By: ARF See above Consultations Consultation(s) initiated? (list below): No Diagnosis Differential diagnosis abdominal pain: abdominal pain, constipation and other (gastroparesis) Most likely diagnosis given after review of the tests above:: Abdominal pain Pharyngitis Admission Indicated Admission indicated?: not indicated Admission Request Was there a request for admission?: No Disposition Plan Disposition Plan: Discharge Discharge Attestation Discharge Attestation: The patient and all family members were given an opportunity to ask questions and understood the discharge instructions. Discharge instructions specifically effects, indications for sooner follow up or return to the emergency department, and the expected course of current diagnosis. Patient condition: Stable Discharge Plan Plan Patient Disposition: HOME (Self Care) Prescriptions/Referrals Prescriptions/Med Rec: New cephalexin 500 mg capsule 500 mg PO QID Qty: 20 0RF No Action loratadine 10 mg tablet 10 mg PO QDAY Patient Comments: TAKE 1 TABLET BY MOUTH EVERY DAY insulin degludec [Tresiba FlexTouch U-200] 200 unit/mL (3 mL) insulin pen 45 unit SUBCUT QDAY losartan 50 mg tablet 50 mg PO QDAY Qty: 30 1RF losartan 100 mg tablet 100 mg PO DAILY Patient Comments: TAKE 1 TABLET BY MOUTH EVERY DAY sertraline 25 mg tablet 25 mg PO HS Patient Comments: TAKE 1 TABLET BY MOUTH AT BEDTIME oxycodone-acetaminophen [Percocet] 5-325 mg tablet 2 tab PO Q8H MDD 6 PRN (Reason: pain) Qty: 20 0RF clonidine HCl 0.1 mg tablet 0.1 mg PO BID Qty: 60 0RF alprazolam [Xanax] 0.25 mg tablet 0.25 mg PO BID PRN (Reason: anxiety) Qty: 10 0RF clonidine HCl 0.1 mg tablet 0.1 mg PO BID Qty: 60 0RF atorvastatin 20 mg tablet 20 mg PO HS benzonatate 100 mg capsule 100 mg PO TID Patient Comments: TAKE 1 CAPSULE BY MOUTH TWICE DAILY insulin aspart U-100 [Novolog FlexPen U-100 Insulin] 100 unit/mL (3 mL) insulin pen 6 unit SUBCUT TIDWM Patient Comments: INJECT 10 UNITS UNDER THE SKIN THREE TIMES DAILY WITH MEALS pentosan polysulfate sodium 100 mg capsule 100 mg PO TID Qty: 90 3RF ondansetron HCl 8 mg tablet 8 mg PO Q8H Patient Comments: TAKE 1 TABLET BY MOUTH EVERY 8 HOURS FOR 2 DAYS albuterol sulfate 90 mcg/actuation HFA aerosol inhaler 2 puff inhalation Q6H PRN (Reason: shortness of breath or wheezing) Qty: 8.5 0RF cefdinir 300 mg capsule 300 mg PO BID Qty: 14 0RF Problem List Clinical Impression: Abdominal pain, Pharyngitis Patient/Caregiver Discharge Instructions Education Materials: When You Have a Sore Throat, Abdominal Pain Additional Instructions: Please follow-up with your primary care doctor as well as your city designer. Please call to schedule dialysis. Is important that you do not miss dialysis. Please return to the emergency department if you have any worsening symptoms or symptoms of concern Print Language: Upper Sorbian Stand Alone Forms: [facility] Info., Patient Portal Info Letter
--- NOTE | 2024-11-06 13:39 | XR_ITS ---
Examination: AP chest single view Technique AP portable upright chest single view Date and time: 2024, 1407 hours, comparison November 03, 2024 INDICATIONS: Chest pain today. FINDINGS: Normal heart size No pneumonia pulmonary edema. Dialysis catheter satisfactory position. IMPRESSION: No pneumonia or pulmonary edema.
[2024-11-06 13:51] VITALS: BMI 31.9
[2024-11-06 14:41] LABS: Basophils # (Auto) 0.1 Thou/mm3 (0.0-0.2); Basophils % (Auto) 1 % (0-2.5); Eosinophils # (Auto) 0.0 Thou/mm3 (0.0-0.5); Eosinophils % (Auto) 0 % (0-10); Hematocrit 34.2 % (36.0-46.0); Hemoglobin 11.2 g/dL (12.0-16.0); Immature Granulocytes Auto 0.11 Thou/mm3 (0.00-0.00); Lymphocytes # (Auto) 1.9 Thou/mm3 (1.0-4.8); Lymphocytes % (Auto) 18 % (10-50); Mean Corpuscular HGB Conc 32.7 g/dl (31.0-37.0); Mean Corpuscular Hemoglobin 28.6 pg (25.0-35.0); Mean Corpuscular Volume 87 fL (80-100); Monocytes # (Auto) 0.5 Thou/mm3 (0.0-0.8); Monocytes % (Auto) 5 % (0-12); Neutrophils # (Auto) 8.3 Thou/mm3 (1.8-7.7); Neutrophils % (Auto) 76 % (37-80); Nucleated Red Blood Cell # 0.00 Thou/mm3 (0.00-0.00); Nucleated Red Blood Cell % 0 /100 WBC (0); Platelet Count 242 Thou/mm3 (140-440); RDW Standard Deviation 45.3 fL (36.4-46.3); Red Blood Count 3.92 Miln/mm3 (4.00-5.20); White Blood Count 11.0 Thou/mm3 (3.6-11.0)
[2024-11-06 14:56] LABS: Alanine Aminotransferase 10 U/L (10-49); Albumin, Serum 3.9 gm/dL (3.4-4.8); Albumin/Globulin Ratio 1.6 (1.2-2.2); Alkaline Phosphatase 151 U/L (46-116); Anion Gap 9 (7-16); Aspartate Amino Transferase 18 U/L (0-34); BUN/Creatinine Ratio 12 Ratio (12-20); Bilirubin,Total 0.2 mg/dL (0.3-1.2); Blood Urea Nitrogen 33 mg/dL (9-23); Calcium 9.7 mg/dL (8.3-10.6); Calcium (Corrected) 9.8 mg/dL (8.5-10.1); Carbon Dioxide 27.1 mMol/L (20.0-31.0); Chloride 99 mMol/L (98-107); Creatinine (Component) 2.7 mg/dL (0.6-1.3); Estimated Creatinine Clearance 15.3 mL/min (>60); Globulin 2.5 gm/dL (2.3-3.5); Glucose 133 mg/dL (74-106); Lipase 36 U/L (12-53); Osmolality,Calculated 279 (275-295); Potassium 5.0 mMol/L (3.4-5.1); Sodium 135 mMol/L (136-145); Total Protein 6.4 gm/dL (5.7-8.2); Troponin I < 0.020 ng/mL (0.0-0.045); eGFR 17 See Note
--- NOTE | 2024-11-06 16:12 | PC.NURSE ---
PT REFUSING IV AND IV MEDS. NOTIFIED.
[2024-11-06 16:35] LABS: Collection Type, Urine Catheter
[2024-11-06 16:46] LABS: Bilirubin,Urine Negative (Negative); Blood,Urine Negative (Negative); Clarity,Urine Clear (Clear/Hazy); Color,Urine Colorless (Lt Yel-Yel); Glucose, Urine Trace (Negative); Ketones,Urine Negative (Negative); Leukocyte Esterase,Urine Positive (Negative); Nitrite,Urine Negative (Negative); PH,Urine 6.5 (5.0-7.0); Protein,Urine 2+ (Neg - Trace); RBC,Urine 3 /hpf (0-3); Specific Gravity,Urine 1.008 (1.001-1.035); Squamous Epithelial Cell,Urine 2 /hpf (0-5); Urobilinogen,Urine Negative mg/dL (0.0-1.0); WBC,Urine 17 /hpf (0-5)
[2024-11-06 16:52] LABS: Culture Indicated,Urine Yes
[2024-11-06] MEDS: ACETAMINOPHEN 325 MG TABLET 650 MG PO (17:11)
[2024-11-06] MEDS: ONDANSETRON ODT 4 MG TABRAP PO (17:12)
--- NOTE | 2024-11-06 17:26 | PC.NURSE ---
PT REFUSING THROAT SWAB- WANTS TO GO HOME AND ASKING FOR DC PAPERS
[2024-11-06] MEDS: cefTRIAXone 1,000 MG, LIDOCAINE 1% 20 ML 2.1 ML IM (18:34)
== END 2024-11-06 18:37 | disposition home or self-care (01) ==
LOC: SERX 18:02
PROVIDERS: Emergency Provider Emergency Medicine
DX: R10.9 Unspecified abdominal pain (principal); J02.9 Acute pharyngitis, unspecified; E11.22 Type 2 diabetes mellitus with diabetic chronic kidney disease; I12.0 Hypertensive chronic kidney disease with stage 5 chronic kidney disease or end stage renal disease; N18.6 End stage renal disease
CPT/HCPCS: 36415; 71045; 80053; 81001; 83690; 84484; 85025; 87077; 87086; 87186; 87651; 96372; 99283; J0696; J3490; Q0162; A9270

== ENCOUNTER 2024-12-03 13:07 | Emergency (ER) | payer MEDICARE, MEDICAID, SELFPAY ==
[2024-12-03] VITALS (8 sets, daily range): BP systolic 142–248; BP diastolic 75–107; PULSE 71–88; RESP 16–18; TEMP 36.5–37; O2SAT 93–99; BMI 32.1
--- NOTE | 2024-12-03 13:22 | EKG_ITS ---
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
--- NOTE | 2024-12-03 13:22 | XR_ITS ---
Examination: AP chest single view Technique one AP portable semiupright chest single view Date and time: December 03, 2024, 1353 hrs. Comparison: November 06, 2024 Indications: Chest pain today. Findings: Normal heart size. Right internal jugular dialysis catheter tips SVC No pneumonia or pulmonary edema Prominent osteopenia Impression: No pneumonia or pulmonary edema
--- NOTE | 2024-12-03 13:23 | PD.EDADULT ---
ED General RME/HPI General Stated complaint: NAUSEA Time Seen by Provider: 12/03/24 13:22 Arrival date/time: 12/03/24 13:07 CC: High blood pressure , headache and chest pain HPI ongoing since this morning. The patient states she woke up and she was normal , and then developed the symptoms later in EMS report elevated blood pressure normal heart rate. Patient is awake alert oriented nontoxic-appearing not in any acute distress. Related Data Home Medications ?Medication ?Instructions ?Recorded ?Confirmed loratadine 10 mg tablet 10 mg PO QDAY 04/22/21 08/31/24 insulin degludec 200 unit/mL (3 45 unit subcut QDAY 08/12/21 08/31/24 mL) subcutaneous pen (Tresiba FlexTouch U-200 insulin) atorvastatin 20 mg tablet 20 mg PO HS 03/11/22 08/31/24 benzonatate 100 mg capsule 100 mg PO TID 03/11/22 08/31/24 insulin aspart U-100 100 unit/mL 6 unit subcut TIDWM 03/11/22 08/31/24 (3 mL) subcutaneous pen (Novolog FlexPen U-100 Insulin aspart) losartan 100 mg tablet 100 mg PO DAILY for BP 04/27/24 08/31/24 sertraline 25 mg tablet 25 mg PO HS 04/28/24 08/31/24 ondansetron HCl 8 mg tablet 8 mg PO Q8H 08/31/24 08/31/24 Previous Rx's ?Medication ?Instructions ?Recorded losartan 50 mg tablet 50 mg PO QDAY #30 tabs 05/25/23 pentosan polysulfate sodium 100 mg 100 mg PO TID #90 caps 09/21/23 capsule oxycodone-acetaminophen 5 mg-325 2 tab PO Q8H PRN pain #20 tabs 06/04/24 mg tablet (Percocet) albuterol sulfate 90 mcg/actuation 2 puff inhalation Q6H PRN 10/19/24 aerosol inhaler shortness of breath or wheezing #8.5 grams cefdinir 300 mg capsule 300 mg PO BID #14 caps 10/19/24 alprazolam 0.25 mg tablet (Xanax) 0.25 mg PO BID PRN anxiety #10 tabs 10/31/24 clonidine HCl 0.1 mg tablet 0.1 mg PO BID #60 tabs 10/31/24 clonidine HCl 0.1 mg tablet 0.1 mg PO BID #60 tabs 11/02/24 cephalexin 500 mg capsule 500 mg PO QID #20 caps 11/06/24 Allergies Allergy/AdvReac Type Severity Reaction Status Date / Time amoxicillin Allergy Severe Vomiting Verified 11/06/24 13:55 codeine Allergy Severe PALPITATION Verified 11/06/24 13:55 S diazepam Allergy Severe RAPID Verified 11/06/24 13:55 HEARTRATE hydrocodone Allergy Severe Vomiting Verified 11/06/24 13:55 hydromorphone Allergy Severe Agitated Verified 11/06/24 13:55 ibuprofen Allergy Severe BLEEDING Verified 11/06/24 13:55 IN STOMACH PER PT meperidine Allergy Severe RAPID Verified 11/06/24 13:55 HEARTRATE morphine Allergy Severe RAPID Verified 11/06/24 13:55 HEARTRATE propoxyphene Allergy Severe RAPID Verified 11/06/24 13:55 HEARTRATE adhesive tape AdvReac Severe Hives Verified 11/06/24 13:55 levofloxacin AdvReac Severe VOMITS Verified 11/06/24 13:55 Review of Systems Review of Systems Narrative Review of Systems: GEN: No fever, no chills, no weight loss EYES: No discharge, no visual changes, no pain HEENT: No ear pain, no congestion, no sore throat PULM: No shortness of breath, no cough, no congestion CV: + chest pain, no dyspnea on exertion, no palpitations GI: No nausea, no vomiting, no diarrhea, no pain, no constipation : No frequency, no urgency, no dysuria MUSC/SKEL: No joint pain, no back pain SKIN: No rash PSYCH: No hallucinations, no depression HEME/LYMPH: No easy bleeding or bruising tendencies NEURO: No weakness, no headache Past Medical History Past Medical History NEUROLOGIC: Positive Traumatic Brain Injury; Negative Neurological Disorders, Cerebrovascular Accident, Transient Ischemic Attacks (TIA), Dementia, Alzheimer's Disease, Parkinson's Disease, Brain Tumor, Meningitis, Seizures, Epilepsy, Multiple Sclerosis, Cerebral Palsy, Amyotrophic Lateral Sclerosis (ALS/Lilliam Gehrig's), Guillain-[place] Syndrome, Spina Bifida, Paralysis, Peripheral Neuropathy, Junior's Palsy, Subdural Hematoma, Migraine, Head Trauma or Spinal Cord Injury CARDIAC: Positive Cardiac Disorders (CHF), Myocardial Infarction, Angina, Hypercholesterolemia, Edema, Deep Vein Thrombosis and Hypertension; Negative Cardiac Arrhythmia, Atrial Fibrillation, Heart Murmur, Coronary Artery Disease, Atherosclerotic Heart Disease, Peripheral Vascular Disease, Aneurysm, Congestive Heart Failure, Congenital Heart Disease, Valvular Heart Disease, Rheumatic Fever, Cardiomyopathy, Pericarditis, Cellulitis, Hypotension or Varicose Veins RESPIRATORY: Positive Asthma, Bronchitis and Pneumonia; Negative Chronic Obstructive Pulmonary Disease (COPD), Emphysema, Pulmonary Fibrosis, Cystic Fibrosis, Tuberculosis, Pulmonary Embolism, Pulmonary Edema or Sleep Apnea GASTROINTESTINAL: Positive Gastrointestinal Disorders, Gastroesophageal Reflux Disease and Obesity; Negative Hepatitis, Cirrhosis, Pancreatitis, Celiac Disease, Gall Bladder Disease, Gastrointestinal Bleed, Esophageal Varices, Romero's Esophagus, Colitis, Ulcerative Colitis, Diverticulitis, Diverticulosis, Ulcer, Colorectal Cancer, Irritable Bowel, Crohn's Disease, Obstructive Bowel, Hiatal Hernia or Hemorrhoids GENITOURINARY: Positive Genitourinary Disorders and Renal Disease (DIALYSIS PATIENT); Negative Kidney Stones, Polycystic Kidney Disease, Neurogenic Bladder, Inguinal Hernia, Dialysis or Benign Prostatic Hyperplasia REPRODUCTIVE: Positive Previous Pregnancies; Negative Breast Cancer, Endometriosis, Genital Herpes, Gonorrhea, Pelvic Inflammatory Disease, Syphilis or Uterine Prolapse MUSCULOSKELETAL: Positive Musculoskeletal Disorders and Arthritis; Negative Muscular Dystrophy, Myasthenia Gravis, Marfan's Syndrome, Bone Cancer, Rheumatoid Arthritis, Osteoporosis, Degenerative Disk Disease, Gout, Scoliosis, Carpal Tunnel Syndrome, Fibromyalgia, Fractures, Degenerative Joint Disease, Osteomyelitis or Poliovirus ENT: Negative Cataracts, Glaucoma, Blind, Retinal Detachment, Macular Degeneration, Ear Infection, Deafness, Head Trauma or Eye Prosthesis ENDOCRINE: Positive Endocrine Disorders and Diabetes Mellitus Type 2; Negative Diabetes Mellitus Type 1, Hypoglycemia, [place]'s Syndrome, [place]'s Disease, Hyperthyroidism, Hypothyroidism, Parathyroid Disease, Pituitary Disease, Systemic Lupus Erythematosus, Syndrome of Inappropriate Antidiuretic Hormone (SIADH), Adrenal Disease or Graves' Disease HEMATOLOGIC: Positive Blood Disorders and Anemia; Negative Sickle Cell Disease or Clotting Problems PSYCHO/SOCIAL: Positive Anxiety; Negative Psychiatric Problems, Schizophrenia, Recreational Drug Use, Bipolar Disorder, Depression, Behavior Problems, Self-Mutilation, Attention Deficit Disorder, Attention Deficit Hyperactivity Disorder, Depression, Post Traumatic Stress Disorder or Eating Disorder OTHER HISTORY: Positive Hospitalization, Blood Transfusions, Chicken Pox, Measles and Mumps; Negative Autoimmune Disease, Down Syndrome, Autism, Developmental Delay, Shingles, Falls, Blood Transfusion Reaction, Anesthesia Reactions, Organ Transplant, Chemotherapy, Radiation Therapy, Hyperbaric Therapy, MRSA, VRSA, Vancomycin-Resistant Enterococci, Human Immunodeficiency Virus (HIV), Rubella ([place] Measles), Pertussis, Clostridium Difficile, Cancer, Breast Cancer, Cervical Cancer, Colorectal Cancer, Lung Cancer or Ovarian Cancer Family History FAMILY HISTORY: Positive Family Respiratory Disorders, Family Cardiac Disorders and Family Cancer; Negative Family Psychiatric Problems, Family Gastrointestinal Problems, Family Surgery or Family Anesthesia Reaction Surgical History SURGICAL: Positive Angiogram, Abdominal Surgery, Joint Replacement and Hysterectomy; Negative Cardiac Surgery, Open Heart Surgery, Coronary Artery Bypass Graft, Valve Replacement, Vascular Surgery, Coronary Stent, Cardiac Catheterization, Pacemaker, Auto Implanted Cardiovert Defib, Carotid Endarterectomy, Endocrine Surgery, Thyroidectomy, Ear Surgery, Tympanostomy Tube, Eye Surgery, Nose Surgery, Oral Surgery, Tonsillectomy, Adenoidectomy, Cochlear Implant, Corneal Transplant, Throat Surgery, Tracheostomy, Gastric Bypass Surgery, Gastrostomy, Bowel Surgery, Nephrectomy, Amputation, Arthroscopy, Neurologic Surgery, Brain Shunt, Mastectomy, Lumpectomy, Tubal Ligation, Section or Organ Transplant Social History SMOKING STATUS: Never smoker SECOND HAND EXPOSURE: No SUBSTANCE USE: does not use ED Exam Narrative Physical exam: [General: Obese not in in any acute distress Head normocephalic HEENT: Eyes pupils are PERRLA EOMs are intact mouth pink moist membranes uvula is midline swallow symmetrical phonation is normal all the subsystems of HEENT are within acceptable limits Neck is supple nontender, no JVD Chest equal chest rise nontender to palpation Respiratory: Clear to auscultation no wheezes crackles or rubs CV: Rate rhythm is regular no murmurs rubs or clicks Abdomen is distended secondary to body habitus soft nontender no masses positive bowel sounds all 4 quadrants Back: No CVA tenderness no spinous process tenderness from cervical spine thoracic and lumbar spine Skin: Intact no petechiae rash induration ulceration or crepitus Extremities: Moving all extremity against resistance cap refill less than 2 seconds neurosensory intact. No lower extremity edema. Neuro: Awake alert oriented x3 Glascow coma 15 no focal deficits] Course Course Course Narrative: At 1534 patient's pressure was noted to be 200/100, patient refused clonidine stating it makes his heart rate go higher. Last time patient was here she was given Trandate. Patient refused IV for the Trandate, now has agreed to take the clonidine. 1740, patient's systolic blood pressure is decreased to 140s and will discharge the patient home. Patient is already followed for CKD with a creatinine of 3 no other acute signs of endorgan damage. Patient to be discharged home. Quality Measures none Orders Category Date Time Status EKG (ED ONLY) *Do not use* NOW Care 12/03/24 13:22 Completed EKG (ED Only) Stat Exams 12/03/24 13:22 Draft XR chest 1V Stat Exams 12/03/24 13:22 Completed B-Type Natriuretic Peptide Stat Lab 12/03/24 13:48 Completed CBC Stat Lab 12/03/24 13:48 Completed Comprehensive Metabolic Panel Stat Lab 12/03/24 13:48 Completed Drug Screen,Urine Stat Lab 12/03/24 16:00 Completed LDH (Lactate Dehydrogenase) Stat Lab 12/03/24 13:48 Completed Magnesium Stat Lab 12/03/24 13:48 Completed Partial Thromboplastin Time Stat Lab 12/03/24 13:48 Completed Prothrombin Time with INR Stat Lab 12/03/24 13:48 Completed Troponin I Stat Lab 12/03/24 13:48 Completed Urinalysis, C/S if Indicated Stat Lab 12/03/24 15:55 Completed Urine Culture Stat Lab 12/03/24 15:55 Received Labetalol IV [Trandate IV] Med 12/03/24 15:35 Discontinued 10 mg IVP X1 ONE Labetalol Tab [Trandate Tab] Med 12/03/24 16:14 Discontinued 100 mg PO X1 ONE Losartan [Cozaar] Med 12/03/24 16:53 Discontinued 100 mg PO X1 ONE cloNIDine HCL [Catapres] Med 12/03/24 14:47 Discontinued 0.2 mg PO X1 ONE Vital Signs Vital signs: Vital Signs Temperature 98.6 F 12/03/24 13:13 Pulse Rate 78 12/03/24 13:13 Respiratory Rate 17 12/03/24 13:13 Blood Pressure 203/102 H 12/03/24 13:13 Pulse Oximetry (%) 95 12/03/24 13:13 Oxygen Delivery Method Room Air 12/03/24 13:13 Discharge Plan Plan Patient Disposition: HOME (Self Care) Patient condition on transfer: Stable Prescriptions/Referrals Prescriptions/Med Rec: No Action loratadine 10 mg tablet 10 mg PO QDAY Patient Comments: TAKE 1 TABLET BY MOUTH EVERY DAY insulin degludec [Tresiba FlexTouch U-200] 200 unit/mL (3 mL) insulin pen 45 unit SUBCUT QDAY losartan 50 mg tablet 50 mg PO QDAY Qty: 30 1RF losartan 100 mg tablet 100 mg PO DAILY Patient Comments: TAKE 1 TABLET BY MOUTH EVERY DAY sertraline 25 mg tablet 25 mg PO HS Patient Comments: TAKE 1 TABLET BY MOUTH AT BEDTIME oxycodone-acetaminophen [Percocet] 5-325 mg tablet 2 tab PO Q8H MDD 6 PRN (Reason: pain) Qty: 20 0RF clonidine HCl 0.1 mg tablet 0.1 mg PO BID Qty: 60 0RF alprazolam [Xanax] 0.25 mg tablet 0.25 mg PO BID PRN (Reason: anxiety) Qty: 10 0RF clonidine HCl 0.1 mg tablet 0.1 mg PO BID Qty: 60 0RF atorvastatin 20 mg tablet 20 mg PO HS benzonatate 100 mg capsule 100 mg PO TID Patient Comments: TAKE 1 CAPSULE BY MOUTH TWICE DAILY insulin aspart U-100 [Novolog FlexPen U-100 Insulin] 100 unit/mL (3 mL) insulin pen 6 unit SUBCUT TIDWM Patient Comments: INJECT 10 UNITS UNDER THE SKIN THREE TIMES DAILY WITH MEALS pentosan polysulfate sodium 100 mg capsule 100 mg PO TID Qty: 90 3RF ondansetron HCl 8 mg tablet 8 mg PO Q8H Patient Comments: TAKE 1 TABLET BY MOUTH EVERY 8 HOURS FOR 2 DAYS albuterol sulfate 90 mcg/actuation HFA aerosol inhaler 2 puff inhalation Q6H PRN (Reason: shortness of breath or wheezing) Qty: 8.5 0RF cefdinir 300 mg capsule 300 mg PO BID Qty: 14 0RF cephalexin 500 mg capsule 500 mg PO QID Qty: 20 0RF Referrals: Collin Herrera PA-C [Primary Care Provider] - In 1 week Problem List Clinical Impression: Headache, Hypertension Patient/Caregiver Discharge Instructions Print Language: Estonian Stand Alone Forms: Grace Award Info., Patient Portal Info Letter MDM Clinical Information Provided by: patient and EMS Medical Records reviewed [facility] and EMS Medical Records additional comments: Review the medical record show the patient has had a large number of visits for wide variety of complaints last admission was for ESRD in September 2024. Meds/Rx considered, not ordered None Labs/Rad/Tests considered, not ordered None Chronic Illness/Social Conditions Explain: ESRD EKG Interpretation EKG #1: EKG Interpretation: EKG performed at 1406 shows a ventricular rate of 69 ID interval 167 QRS of 97 QTc of 400 the sinus rhythm incomplete right bundle branch block when compared to old EKG from this year there are no significant changes. Labs Labs: interpreted by me Lab(s) Interpretation(s): CBC shows no acute leukocytosis anemia thrombocytopenia Coags within acceptable limits CMP shows sodium 134 creatinine 3.0 no other significant electrolyte imbalances no transaminitis or T. bili elevation note: Creatinine of 3 is baseline for her when reviewing laboratory results from the past. Magnesium within acceptable limits Troponin is within acceptable limits BNP is elevated at 122. Imaging Imaging Interpretation(s): Chest x-ray as interpreted by me read by radiology shows no acute finding. Medication Administration(s) Medication Administration History Discontinued Medications Clonidine (Clonidine Hcl 0.1 Mg Tablet) 0.2 mg PO X1 ONE Stop: 12/03/24 14:48 Last Admin: 12/03/24 15:39 Dose: 0.2 mg Documented By: BY Labetalol HCl (Labetalol Inj 5 Mg/Ml Vial 20 Ml) 10 mg IVP X1 ONE Stop: 12/03/24 15:36 Last Admin: 12/03/24 16:04 Dose: Not Given Documented By: BY Non-Admin Reason: Discontinued Labetalol HCl (Labetalol 100 Mg Tablet) 100 mg PO X1 ONE Stop: 12/03/24 16:15 Losartan Potassium (Losartan Potassium 25 Mg Tablet) 100 mg PO X1 ONE Stop: 12/03/24 16:54
[2024-12-03 13:58] LABS: Basophils # (Auto) 0.1 Thou/mm3 (0.0-0.2); Basophils % (Auto) 1 % (0-2.5); Eosinophils # (Auto) 0.2 Thou/mm3 (0.0-0.5); Eosinophils % (Auto) 1 % (0-10); Hematocrit 39.3 % (36.0-46.0); Hemoglobin 12.4 g/dL (12.0-16.0); Immature Granulocytes Auto 0.05 Thou/mm3 (0.00-0.00); Lymphocytes # (Auto) 2.4 Thou/mm3 (1.0-4.8); Lymphocytes % (Auto) 23 % (10-50); Mean Corpuscular HGB Conc 31.6 g/dl (31.0-37.0); Mean Corpuscular Hemoglobin 27.9 pg (25.0-35.0); Mean Corpuscular Volume 89 fL (80-100); Monocytes # (Auto) 0.6 Thou/mm3 (0.0-0.8); Monocytes % (Auto) 6 % (0-12); Neutrophils # (Auto) 7.3 Thou/mm3 (1.8-7.7); Neutrophils % (Auto) 69 % (37-80); Nucleated Red Blood Cell # 0.00 Thou/mm3 (0.00-0.00); Nucleated Red Blood Cell % 0 /100 WBC (0); Platelet Count 246 Thou/mm3 (140-440); RDW Standard Deviation 49.5 fL (36.4-46.3); Red Blood Count 4.44 Miln/mm3 (4.00-5.20); White Blood Count 10.5 Thou/mm3 (3.6-11.0)
[2024-12-03 14:09] LABS: INR 1.0 (0.9-1.3); Partial Thromboplastin Time 32.1 Seconds (22.0-36.0); Prothrombin Time 11.3 Seconds (9.0-12.2)
[2024-12-03 14:24] LABS: Alanine Aminotransferase 11 U/L (10-49); Albumin, Serum 4.0 gm/dL (3.4-4.8); Albumin/Globulin Ratio 1.5 (1.2-2.2); Alkaline Phosphatase 124 U/L (46-116); Anion Gap 8 (7-16); Aspartate Amino Transferase 14 U/L (0-34); BUN/Creatinine Ratio 5 Ratio (12-20); Bilirubin,Total 0.3 mg/dL (0.3-1.2); Blood Urea Nitrogen 15 mg/dL (9-23); Calcium 9.5 mg/dL (8.3-10.6); Calcium (Corrected) 9.5 mg/dL (8.5-10.1); Carbon Dioxide 27.3 mMol/L (20.0-31.0); Chloride 99 mMol/L (98-107); Creatinine (Component) 3.0 mg/dL (0.6-1.3); Globulin 2.7 gm/dL (2.3-3.5); Glucose 91 mg/dL (74-106); LDH (Lactate Dehydrogenase) 221 U/L (120-246); Magnesium 2.3 mg/dL (1.6-2.6); Osmolality,Calculated 269 (275-295); Potassium 4.7 mMol/L (3.4-5.1); Sodium 134 mMol/L (136-145); Total Protein 6.7 gm/dL (5.7-8.2); Troponin I < 0.020 ng/mL (0.0-0.045); eGFR 15 See Note
[2024-12-03 14:45] LABS: B-Type Natriuretic Peptide 122 pg/mL (0-100)
[2024-12-03 16:32] LABS: Collection Type, Urine Clean Catch
[2024-12-03 16:49] LABS: Amphetamine/Methamp Scrn,U Negative (Negative); Barbiturate Screen,Urine Negative (Negative); Benzodiazepines Screen,Urine Negative (Negative); Benzoylecgonine Screen, Ur Negative (Negative); Fentanyl Screen,Urine Negative (Negative); Opiate Screen,Urine Negative (Negative); THC Screen,Urine Negative (Negative)
[2024-12-03 16:54] LABS: Bacteria,Urine Rare; Bilirubin,Urine Negative (Negative); Blood,Urine Trace (Negative); Clarity,Urine Clear (Clear/Hazy); Color,Urine Colorless (Lt Yel-Yel); Glucose, Urine Negative (Negative); Ketones,Urine Negative (Negative); Leukocyte Esterase,Urine Positive (Negative); Nitrite,Urine Negative (Negative); PH,Urine 7.0 (5.0-7.0); Protein,Urine 2+ (Neg - Trace); RBC,Urine 4 /hpf (0-3); Specific Gravity,Urine 1.006 (1.001-1.035); Squamous Epithelial Cell,Urine 4 /hpf (0-5); Urobilinogen,Urine Negative mg/dL (0.0-1.0); WBC,Urine 15 /hpf (0-5)
[2024-12-03 16:58] LABS: Culture Indicated,Urine Yes
== END 2024-12-03 18:17 | disposition home or self-care (01) ==
PROVIDERS: Registered Nurse General Practice; Emergency Provider Emergency Medicine; PCP Physician Assistant
DX: I13.2 Hypertensive heart and chronic kidney disease with heart failure and with stage 5 chronic kidney disease, or end stage renal disease (principal); N18.6 End stage renal disease; E11.22 Type 2 diabetes mellitus with diabetic chronic kidney disease; I50.9 Heart failure, unspecified; R51.9 Headache, unspecified; R07.9 Chest pain, unspecified; I49.8 Other specified cardiac arrhythmias; I45.10 Unspecified right bundle-branch block; Z99.2 Dependence on renal dialysis; Z79.4 Long term (current) use of insulin
CPT/HCPCS: 36415; 71045; 80053; 80307; 81001; 83615; 83735; 83880; 84484; 85025; 85610; 85730; 87086; 93005; 99283; A9270

== ENCOUNTER → 2024-12-19 | Outpatient (CLI) | payer MEDICARE, SELFPAY ==
[2024-12-18 09:42] VITALS: BMI 31.1
[2024-12-19 13:10] LABS: Basophils # (Auto) 0.1 Thou/mm3 (0.0-0.2); Basophils % (Auto) 1 % (0-2.5); Eosinophils # (Auto) 0.1 Thou/mm3 (0.0-0.5); Eosinophils % (Auto) 1 % (0-10); Hematocrit 39.6 % (36.0-46.0); Hemoglobin 12.5 g/dL (12.0-16.0); Immature Granulocytes Auto 0.03 Thou/mm3 (0.00-0.00); Lymphocytes # (Auto) 2.7 Thou/mm3 (1.0-4.8); Lymphocytes % (Auto) 27 % (10-50); Mean Corpuscular HGB Conc 31.6 g/dl (31.0-37.0); Mean Corpuscular Hemoglobin 27.9 pg (25.0-35.0); Mean Corpuscular Volume 88 fL (80-100); Monocytes # (Auto) 0.5 Thou/mm3 (0.0-0.8); Monocytes % (Auto) 5 % (0-12); Neutrophils # (Auto) 6.5 Thou/mm3 (1.8-7.7); Neutrophils % (Auto) 66 % (37-80); Nucleated Red Blood Cell # 0.00 Thou/mm3 (0.00-0.00); Nucleated Red Blood Cell % 0 /100 WBC (0); Platelet Count 235 Thou/mm3 (140-440); RDW Standard Deviation 50.4 fL (36.4-46.3); Red Blood Count 4.48 Miln/mm3 (4.00-5.20); White Blood Count 9.9 Thou/mm3 (3.6-11.0)
[2024-12-19 13:19] LABS: Blood Urea Nitrogen 45 mg/dL (9-23); Creatinine (Component) 3.0 mg/dL (0.6-1.3); Estimated Creatinine Clearance 13.4 mL/min (>60); eGFR 15 See Note
[2024-12-19 13:21] LABS: INR 1.0 (0.9-1.3); Partial Thromboplastin Time 33.9 Seconds (22.0-36.0); Prothrombin Time 10.6 Seconds (9.0-12.2)
[2024-12-20 08:47] VITALS: BP 210/90; BP 211/114; PULSE 88; RESP 24; TEMP 36.6; O2SAT 98; BMI 31.1
== END | disposition home or self-care (01) ==
LOC: SIRX 12-21 10:05 → SLAB 12-26 06:33
PROVIDERS: Radiology Diagnostic Radiology; PCP Physician Assistant; Referring Provider Internal Medicine; Visit Provider Internal Medicine
DX: N18.6 End stage renal disease (principal)
CPT/HCPCS: 36415; 82565; 84520; 85025; 85610; 85730

== ENCOUNTER 2024-12-20 09:46 | Emergency (ER) | payer MEDICARE, MEDICAID, SELFPAY ==
[2024-12-20] VITALS (7 sets, daily range): BP systolic 155–213; BP diastolic 75–103; PULSE 74–84; RESP 16–18; TEMP 36.9; O2SAT 97–100; BMI 31.1
--- NOTE | 2024-12-20 09:47 | EKG_ITS ---
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
--- NOTE | 2024-12-20 09:53 | PD.EDADULT ---
ED General RME/HPI General Chief complaint: General Adult/Misc Complain Stated complaint: HIGH BP Time Seen by Provider: 12/20/24 09:47 Arrival date/time: 12/20/24 09:46 RME / HPI RME / HPI narrative: 84 year old female with history of hypertension, diabetes, ESRD on HD M/F presents to the ED brought from the quality assurance/r&d lab technician unit within this facility for evaluation of elevated blood pressure today. Per RN, patient was scheduled to have dialysis catheter changed today and blood pressure noted to be elevated, SBP 200s. Patient has no complaints and is asymptomatic. Patients sister at bedside reports the patient is not compliant with her nightime blood pressure medications and her blood pressure is always high . Related Data Home Medications ?Medication ?Instructions ?Recorded ?Confirmed loratadine 10 mg tablet 10 mg PO QDAY 04/22/21 12/20/24 insulin degludec 200 unit/mL (3 45 unit subcut QDAY 08/12/21 12/20/24 mL) subcutaneous pen (Tresiba FlexTouch U-200 insulin) atorvastatin 20 mg tablet 20 mg PO HS 03/11/22 12/20/24 benzonatate 100 mg capsule 100 mg PO TID 03/11/22 12/20/24 insulin aspart U-100 100 unit/mL 6 unit subcut TIDWM 03/11/22 12/20/24 (3 mL) subcutaneous pen (Novolog FlexPen U-100 Insulin aspart) losartan 100 mg tablet 100 mg PO DAILY for BP 04/27/24 12/20/24 sertraline 25 mg tablet 25 mg PO HS 04/28/24 12/20/24 Previous Rx's ?Medication ?Instructions ?Recorded pentosan polysulfate sodium 100 mg 100 mg PO TID #90 caps 09/21/23 capsule albuterol sulfate 90 mcg/actuation 2 puff inhalation Q6H PRN 10/19/24 aerosol inhaler shortness of breath or wheezing #8.5 grams clonidine HCl 0.1 mg tablet 0.1 mg PO BID #60 tabs 10/31/24 clonidine HCl 0.1 mg tablet 0.1 mg PO BID #60 tabs 11/02/24 Allergies Allergy/AdvReac Type Severity Reaction Status Date / Time amoxicillin Allergy Severe Vomiting Verified 12/20/24 09:59 codeine Allergy Severe PALPITATION Verified 12/20/24 09:59 S diazepam Allergy Severe RAPID Verified 12/20/24 09:59 HEARTRATE hydrocodone Allergy Severe Vomiting Verified 12/20/24 09:59 hydromorphone Allergy Severe Agitated Verified 12/20/24 09:59 ibuprofen Allergy Severe BLEEDING Verified 12/20/24 09:59 IN STOMACH PER PT meperidine Allergy Severe RAPID Verified 12/20/24 09:59 HEARTRATE morphine Allergy Severe RAPID Verified 12/20/24 09:59 HEARTRATE propoxyphene Allergy Severe RAPID Verified 12/20/24 09:59 HEARTRATE adhesive tape AdvReac Severe Hives Verified 12/20/24 09:59 levofloxacin AdvReac Severe VOMITS Verified 12/20/24 09:59 Review of Systems Review of Systems Systems Reviewed: All systems reviewed, normal except as documented Past Medical History Past Medical History NEUROLOGIC: Positive Traumatic Brain Injury CARDIAC: Positive Cardiac Disorders, Myocardial Infarction, Angina, Hypercholesterolemia, Edema, Deep Vein Thrombosis and Hypertension RESPIRATORY: Positive Asthma, Bronchitis and Pneumonia GASTROINTESTINAL: Positive Gastrointestinal Disorders, Gastroesophageal Reflux Disease and Obesity GENITOURINARY: Positive Genitourinary Disorders, Renal Disease and Dialysis (tuesdays/fridays) REPRODUCTIVE: Positive Previous Pregnancies MUSCULOSKELETAL: Positive Musculoskeletal Disorders (right shoulder /arm pain; use walker for mobility) and Arthritis ENDOCRINE: Positive Endocrine Disorders and Diabetes Mellitus Type 2 HEMATOLOGIC: Positive Blood Disorders and Anemia PSYCHO/SOCIAL: Positive Anxiety OTHER HISTORY: Positive Hospitalization, Blood Transfusions, Chicken Pox, Measles and Mumps Family History FAMILY HISTORY: Positive Family Respiratory Disorders, Family Cardiac Disorders and Family Cancer Surgical History SURGICAL: Positive Angiogram, Abdominal Surgery and Hysterectomy Social History SMOKING STATUS: Never smoker SECOND HAND EXPOSURE: No SUBSTANCE USE: does not use ED Exam Narrative Physical exam: GENERAL APPEARANCE: alert and oriented x 4, well-developed, well-nourished, no acute distress HEENT: Normocephalic, atraumatic; pupils equal, round, reactive to light; EOMI; mucous membranes pink, moist; oropharynx clear NECK: Supple LUNGS: CTABL; no wheezes, no rales, no rhonchi HEART: Regular rate, regular rhythm; normal S1, S2; no murmurs ABDOMEN: non distended; normal BS; soft, no tenderness, no guarding, no rebound; no masses, no organomegaly, no hernia BACK: no CVA tenderness EXTREMITIES: atraumatic; no edema NEUROLOGIC: awake; alert and oriented x4; cranial nerves II-XII grossly intact; no focal sensory or motor deficits PSYCHIATRIC: appropriate mood and affect SKIN: warm, dry, normal color; no rashes Course Course Course Narrative: 1228p: Blood pressure 155/87, will send to quality assurance/r&d lab technician. 1300p: I spoke with IR Dr. Meeks and states he is not available to perform dialysis replacement today. Evidently, the patient was last dialyzed 5 days ago Wednesday. Will order labs. 1405p: Patient complains of a mild headache, will order Tylenol. Labs reviewed and renal function is at her baseline. Will DC home. Quality Measures none Orders Category Date Time Status EKG (ED ONLY) *Do not use* NOW Care 12/20/24 09:50 Completed EKG (ED Only) Stat Exams 12/20/24 09:47 Draft IR dialysis catheter insertion Stat Exams 12/20/24 Ordered BMP [Basic Metabolic Panel] Stat Lab 12/20/24 13:29 Completed Acetaminophen Tab [Tylenol Tab] Med 12/20/24 14:06 Discontinued 650 mg PO X1 ONE Labetalol IV [Trandate IV] Med 12/20/24 10:20 Discontinued 10 mg IVP X1 ONE hydrALAZINE INJ [Apresoline Inj] Med 12/20/24 12:08 Discontinued 10 mg IVP X1 ONE Vital Signs Vital signs: Vital Signs Temperature 98.5 F 12/20/24 09:50 Pulse Rate 84 12/20/24 09:50 Respiratory Rate 17 12/20/24 09:50 Blood Pressure 213/103 H 12/20/24 09:50 Pulse Oximetry (%) 100 12/20/24 09:50 Oxygen Delivery Method Room Air 12/20/24 09:50 Pulse ox is 100% on room air which is adequate. Critical Care Time Critical Care Time Critical Care Time: Yes Total Critical Care Time (min.): 35 Attestation: The high probability of sudden, clinically significant deterioration in the patient's condition required the highest level of my preparedness to intervene urgently. The services I provided to this patient were to treat and/or prevent clinically significant deterioration. Services included the following: chart data review, reviewing nursing notes and/or old charts, documentation time, coding consultant collaboration regarding findings and treatment options, medication orders and management, direct patient care, vital sign assessments and ordering, interpreting and reviewing diagnostic studies and lab tests. Aggregate critical care time includes only time during which I was engaged in work directly related to the patient's care, as described above, whether at bedside or elsewhere in the Emergency Department. It did not include time spent performing other reported procedures or the services of residents, students, nurses or physician assistants. Discharge Plan Plan Patient Disposition: HOME (Self Care) Patient condition on transfer: Stable Prescriptions/Referrals Prescriptions/Med Rec: No Action loratadine 10 mg tablet 10 mg PO QDAY Patient Comments: TAKE 1 TABLET BY MOUTH EVERY DAY insulin degludec [Tresiba FlexTouch U-200] 200 unit/mL (3 mL) insulin pen 45 unit SUBCUT QDAY losartan 100 mg tablet 100 mg PO DAILY Patient Comments: TAKE 1 TABLET BY MOUTH EVERY DAY sertraline 25 mg tablet 25 mg PO HS Patient Comments: TAKE 1 TABLET BY MOUTH AT BEDTIME clonidine HCl 0.1 mg tablet 0.1 mg PO BID Qty: 60 0RF clonidine HCl 0.1 mg tablet 0.1 mg PO BID Qty: 60 0RF atorvastatin 20 mg tablet 20 mg PO HS benzonatate 100 mg capsule 100 mg PO TID Patient Comments: TAKE 1 CAPSULE BY MOUTH TWICE DAILY insulin aspart U-100 [Novolog FlexPen U-100 Insulin] 100 unit/mL (3 mL) insulin pen 6 unit SUBCUT TIDWM Patient Comments: INJECT 10 UNITS UNDER THE SKIN THREE TIMES DAILY WITH MEALS pentosan polysulfate sodium 100 mg capsule 100 mg PO TID Qty: 90 3RF albuterol sulfate 90 mcg/actuation HFA aerosol inhaler 2 puff inhalation Q6H PRN (Reason: shortness of breath or wheezing) Qty: 8.5 0RF Referrals: Collin Herrera PA-C [Primary Care Provider] - In 1 week Problem List Clinical Impression: Hypertensive urgency Patient/Caregiver Discharge Instructions Education Materials: ED High Blood Pressure ... Print Language: Turkish Stand Alone Forms: Grace Award Info., Patient Portal Info Letter MDM Narrative MDM hospital course (for use when minimal MDM required): Sherly Rooney am scribing for and in the presence of Dr. Lopez. Clinical Information Provided by: patient and family Medical Records reviewed [facility] Meds/Rx considered, not ordered None Labs/Rad/Tests considered, not ordered None Chronic Illness/Social Conditions which may negatively complicate care or outcome(s)-explain: None or not applicable EKG Interpretation EKG #1: EKG Interpretation: EKG @ 09:56 AM. Sinus rhythm, rate 86, no STEMI. Labs Labs: see narrative above Imaging Imaging interpretation: none Medication Administration(s) Medication Administration History Discontinued Medications Acetaminophen (Acetaminophen 325 Mg Tablet) 650 mg PO X1 ONE Stop: 12/20/24 14:07 Last Admin: 12/20/24 14:30 Dose: 650 mg Documented By: SOHAM Hydralazine HCl (Hydralazine Inj 20 Mg/Ml Vial) 10 mg IVP X1 ONE Stop: 12/20/24 12:09 Last Admin: 12/20/24 12:29 Dose: Not Given Documented By: TATIANA Non-Admin Reason: Change of Condition Labetalol HCl (Labetalol Inj 5 Mg/Ml Vial 20 Ml) 10 mg IVP X1 ONE Stop: 12/20/24 10:21 Last Admin: 12/20/24 10:32 Dose: 10 mg Documented By: TATIANA See above Diagnosis Diagnoses ruled out and/or further discussions: Hypertensive urgency
[2024-12-20] MEDS: LABETALOL INJ 5 MG/ML VIAL 20 ML 10 MG IVP (10:32)
[2024-12-20 13:53] LABS: Anion Gap 10 (7-16); BUN/Creatinine Ratio 12 Ratio (12-20); Blood Urea Nitrogen 34 mg/dL (9-23); Calcium 9.4 mg/dL (8.3-10.6); Carbon Dioxide 25.7 mMol/L (20.0-31.0); Chloride 107 mMol/L (98-107); Creatinine (Component) 2.9 mg/dL (0.6-1.3); Estimated Creatinine Clearance 13.8 mL/min (>60); Glucose 101 mg/dL (74-106); Osmolality,Calculated 292 (275-295); Potassium 4.0 mMol/L (3.4-5.1); Sodium 143 mMol/L (136-145); eGFR 16 See Note
[2024-12-20] MEDS: ACETAMINOPHEN 325 MG TABLET 650 MG PO (14:30)
[2024-12-20] MEDS: hydrALAZINE INJ 20 MG/ML VIAL 10 MG IVP (15:14)
--- NOTE | 2024-12-20 22:52 | PD.TNEURO ---
Tele Neuro Consultation Consultation Date 12/20/24 Most Recent Vital Signs Last Vital Signs Temp 98.5 F 12/20/24 12:30 Pulse 78 12/20/24 15:54 Resp 18 12/20/24 15:54 BP 167/75 H 12/20/24 15:54 Pulse Ox 98 12/20/24 15:54 O2 Del Method Room Air 12/20/24 15:54 Consultation Narrative [facility] TeleNeurology Consult Services Patient Name:???Alberta Nelson Date of :???1940 Date of Service:???12/20/2024 22:10:36 Diagnosis:?I63.89 - Cerebrovascular accident (CVA) due to other mechanism (HCCC) Impression: ?Progressive Weakness, Dizziness, Nausea, Left hemiparesis: ?Possible parapontine hemorrhage on CT head ? ?- 84-year-old female in a residential care facility with history of diabetes, end-stage renal disease, and hypertension presents with acute onset left-sided weakness, speech difficulties, and facial spasms starting this morning. Neurological examination reveals weakness in the left leg, unable to hold it up for 5 seconds. Given the acute onset, focal neurological deficits, and patient's risk factors, this is highly suggestive of acute stroke. ? - Admit to neurology floor for stroke work-up including lab works (CBC, CMP, TSH, UA, fasting lipid profile, and HbA1C), ? - MRI brain ADC/DWI and GRE/SWI to rule out bleed. ? - Repeat CT head PRN with any changes in NIH ? - Hold Antiplatelet until bleed ruled out. ? - High intensity statins. ? -Vessel imaging CTA/MRA head and neck w/o to evaluate extra/intracranial vasculature integrity ? -2D echo to check Ejection fraction, wall motion defects, intracardiac thrombi ? -Q4hour Neurochecks ? -Monitor 48 hours under telemetry for arrhythmia ? - No need for permissive HTN > 24 hours ? - Strict BP control ? -IVF 0.9NS @100 cc/hr (if needed) ? -Replete any deficiencies as needed and provide appropriate supplementation recommendations. ? - May resume if MRI negative. ? - PT/OT/HEEL SLICKER/PM&R evaluation ? - If failed swallow, insert NGT and start feeds w/i 48 hrs. ? - Maintain euthermia, euvolemia, euglycemia. ? ? ?Hypertension: ?- Patient with known history of hypertension, current blood pressure elevated at 137/100 mmHg, which may be related to the acute neurological event or inadequate control of chronic hypertension. ? - Monitor blood pressure closely ? ?Diabetes Mellitus: ?- Patient with known diabetes, current blood sugar 137 mg/dL, slightly elevated but may be stress-related due to the acute neurological event. ? - Continue to monitor blood glucose levels ? ?End-Stage Renal Disease: ?- Patient with history of end-stage renal disease, which is a significant risk factor for cardiovascular and cerebrovascular events. Our recommendations are outlined below. Recommendations: ? Stroke/Telemetry Floor ? Neuro Checks (Q4) ? Bedside Swallow Eval ? DVT Prophylaxis ? IV Fluids, Normal Saline ? Head of Bed 30 Degrees ? Euglycemia and Avoid Hyperthermia (PRN Acetaminophen) Sign Out: ? Discussed with Emergency Department Provider Advanced Imaging: Advanced Imaging Deferred because: Non-disabling symptoms as verified by the patient; no cortical signs so not consistent with LVO Metrics: Last Known Well: Unknown Dispatch Time: 12/20/2024 22:10:36 Arrival Time: 12/20/2024 22:05:00 Initial Response Time: 12/20/2024 22:11:43Symptoms: weakness and speech changes. Initial patient interaction: 12/20/2024 22:17:03 NIHSS Assessment Completed: 12/20/2024 22:25:20Patient is not a candidate for Thrombolytic. Thrombolytic Medical Decision: 12/20/2024 22:25:28Patient was not deemed candidate for Thrombolytic because of following reasons: Care-team unable to determine eligibility. . CT Head: I personally reviewed all the CT images that were available to me and it showed: Per rads: possible hyperdensity right brainstem, parapontine; possible hemorrhage Primary Provider Notified of Diagnostic Impression and Management Plan on: 12/20/2024 22:46:52 History of Present Illness:Patient is a 84 year old Female. Patient was brought by private transportation with symptoms of weakness and speech changes. The patient is an 84-year-old female with a medical history of diabetes, end-stage renal disease, and hypertension who presents with progressive neurological symptoms including weakness, gait disturbance, speech difficulties, and facial spasms. Over the last couple of weeks, the patient has been experiencing progressive weakness and has been dragging her left foot when walking. She has also developed slurring speech and difficulty formulating sentences. Additionally, she has been experiencing facial spasms. According to family members, these symptoms started this morning, though this appears to contradict the reported timeline of symptoms occurring over the past couple of weeks. The left-sided weakness affects the lower extremity, with the patient dragging her left foot when walking. The slurred speech and difficulty formulating sentences have persisted throughout the episode. Past Medical History: ?Hypertension ?Diabetes Mellitus ?Hyperlipidemia Other PMH:? ESRD Medications: Anticoagulant use:??Unknown Antiplatelet use:?Unknown Reviewed EMR for current medications Allergies:? Reviewed Social History: Drug Use: No Family History: There is no family history of premature cerebrovascular disease pertinent to this consultation ROS : 14 Points Review of Systems was performed and was negative except mentioned in HPI. Past Surgical History: There Is No Surgical History Contributory To Today?s Visit Examination: BP(137/100),?Pulse(101), 1A: Level of Consciousness - Alert; keenly responsive?+ 0 1B: Ask Month and Age - Both Questions Right?+ 0 1C: Blink Eyes & Squeeze Hands - Performs Both Tasks?+ 0 2: Test Horizontal Extraocular Movements - Normal?+ 0 3: Test Visual Goyal - No Visual Loss?+ 0 4: Test Facial Palsy (Use Grimace if Obtunded) - Normal symmetry?+ 0 5A: Test Left Arm Motor Drift - No Drift for 10 Seconds?+ 0 5B: Test Right Arm Motor Drift - No Drift for 10 Seconds?+ 0 6A: Test Left Leg Motor Drift - Drift, but doesn't hit bed?+ 1 6B: Test Right Leg Motor Drift - No Drift for 5 Seconds?+ 0 7: Test Limb Ataxia (FNF/Heel-Evans) - No Ataxia?+ 0 8: Test Sensation - Normal; No sensory loss?+ 0 9: Test Language/Aphasia - Normal; No aphasia?+ 0 10: Test Dysarthria - Normal?+ 0 11: Test Extinction/Inattention - No abnormality?+ 0 NIHSS Score:?1 Pre-Morbid Modified Warren Scale: 3 Points = Moderate disability; requiring some help, but able to walk without assistance Spoke with :?Dr. Dillard This consult was conducted in real time using interactive audio and video technology. Patient was informed of the technology being used for this visit and agreed to proceed. Patient located in hospital and provider located at home/office setting. Patient is being evaluated for possible acute neurologic impairment and high probability of imminent or life-threatening deterioration. I spent total of 45 minutes providing care to this patient, including time for face to face visit via telemedicine, review of medical records, imaging studies and discussion of findings with providers, the patient and/or family. Dr Huy Villegas [facility] For Inpatient follow-up with [facility] physician please call [facility] at . As we are not an outpatient service for any post hospital discharge needs please contact the hospital for assistance. If you have any questions for the [facility] physicians or need to reconsult for clinical or diagnostic changes please contact us via [facility] at . Signature :Arleth Villegas
== END 2024-12-20 16:03 | disposition home or self-care (01) ==
PROVIDERS: Emergency Provider Emergency Medicine; PCP Physician Assistant
DX: I16.0 Hypertensive urgency (principal); I12.0 Hypertensive chronic kidney disease with stage 5 chronic kidney disease or end stage renal disease; N18.6 End stage renal disease; E11.22 Type 2 diabetes mellitus with diabetic chronic kidney disease; R94.31 Abnormal electrocardiogram [ECG] [EKG]; Z79.4 Long term (current) use of insulin; Z99.2 Dependence on renal dialysis
CPT/HCPCS: 36415; 80048; 93005; 96374; 96375; 99284; J0360; J3490; A9270; J1920

== ENCOUNTER 2024-12-20 22:11 | Emergency (ER) | payer MEDICARE, SELFPAY ==
[2024-12-20 22:12] VITALS: BP 119/77; PULSE 102; RESP 18; TEMP 36.6; O2SAT 95
--- NOTE | 2024-12-20 22:12 | PC.NURSE ---
Case Consult 12/20/2024 22:10:36 PST Case # [id number] has been created.
--- NOTE | 2024-12-20 22:13 | PD.EDNEURO ---
Neuro Symptoms Deficit-RME/HPI General Chief Complaint: Fall Stated Complaint: POSSIBLE STROKE Time Seen by Provider: 12/20/24 22:25 Arrival date/time: 12/20/24 22:11 RME / HPI RME / HPI Narrative: See MDM for Dr. Dillard's HPI documentation. Related Data Home Medications ?Medication ?Instructions ?Recorded ?Confirmed atorvastatin 20 mg tablet 20 mg PO HS 03/11/22 12/27/24 benzonatate 100 mg capsule 100 mg PO TID 03/11/22 12/27/24 losartan 100 mg tablet 100 mg PO DAILY for BP 04/27/24 12/27/24 sertraline 25 mg tablet 25 mg PO HS 04/28/24 12/27/24 blood sugar diagnostic (True 12/27/24 12/27/24 Metrix Glucose Test Strip) labetalol 100 mg tablet 100 mg PO BID 12/27/24 12/27/24 pen needle, diabetic 32 gauge x 12/27/24 12/27/24 (Jeanne 2nd Gen Pen Needle) Previous Rx's ?Medication ?Instructions ?Recorded albuterol sulfate 90 mcg/actuation 2 puff inhalation Q6H PRN 10/19/24 aerosol inhaler shortness of breath or wheezing #8.5 grams clonidine HCl 0.1 mg tablet 0.1 mg PO BID #60 tabs 11/02/24 insulin aspart U-100 100 unit/mL 4 unit (0.04 mL) subcut TIDWM 1 12/28/24 (3 mL) subcutaneous pen (Novolog month #15 mL FlexPen U-100 Insulin aspart) insulin degludec 200 unit/mL (3 20 unit (0.1 mL) subcut QDAY 1 12/28/24 mL) subcutaneous pen (Tresiba month #3 mL FlexTouch U-200 insulin) Allergies Allergy/AdvReac Type Severity Reaction Status Date / Time amoxicillin Allergy Severe Vomiting Verified 12/20/24 09:59 codeine Allergy Severe PALPITATION Verified 12/20/24 09:59 S diazepam Allergy Severe RAPID Verified 12/20/24 09:59 HEARTRATE hydrocodone Allergy Severe Vomiting Verified 12/20/24 09:59 hydromorphone Allergy Severe Agitated Verified 12/20/24 09:59 ibuprofen Allergy Severe BLEEDING Verified 12/20/24 09:59 IN STOMACH PER PT meperidine Allergy Severe RAPID Verified 12/20/24 09:59 HEARTRATE morphine Allergy Severe RAPID Verified 12/20/24 09:59 HEARTRATE propoxyphene Allergy Severe RAPID Verified 12/20/24 09:59 HEARTRATE adhesive tape AdvReac Severe Hives Verified 12/20/24 09:59 levofloxacin AdvReac Severe VOMITS Verified 12/20/24 09:59 Review of Systems Review of Systems ROS Unobtainable: other (unobtainable due to the patient not answering questions) ED Exam Narrative Physical exam: See MDM for Dr. Dillard's physical exam documentation. Course Quality Measures none Orders Category Date Time Status Bedside Blood Glucose NOW Care 12/20/24 22:14 Completed Bedside COVID-19 Antigen Test NOW Care 12/20/24 22:16 Completed Geographic Information Systems Analyst NOW Care 12/20/24 22:14 Completed Continuous Pulse Oximetry NOW Care 12/20/24 22:14 Completed EKG (ED ONLY) *Do not use* NOW Care 12/20/24 22:14 Completed Insert IV NOW Care 12/20/24 22:14 Completed NIH Stroke Scale now Care 12/20/24 22:14 Completed NPO NOW Care 12/20/24 22:14 Completed Nurse Swallow Screen x1 Care 12/20/24 22:14 Completed Straight [In and Out Catheter] X1 Care 12/20/24 22:16 Completed Consult to Neurology / Tele-Neurology Routine Cons 12/20/24 22:14 Active Transfer to another facility [Transfer/Discharge] Stat Discharge 12/21/24 00:[address] angio stroke protocol Stat Exams 12/20/24 22:[address] cervical spine wo con Stat Exams 12/20/24 22:[address] chest abdomen pelvis wo Stat Exams 12/20/24 22:[address] stroke protocol Stat Exams 12/20/24 22:14 Completed EKG (ED Only) Stat Exams 12/20/24 22:14 Draft XR chest 1V portable Stat Exams 12/20/24 22:14 Completed Alcohol, Blood Medical Stat Lab 12/20/24 22:28 Completed Arterial Blood Gas Stat Lab 12/20/24 23:07 Completed B-Type Natriuretic Peptide Stat Lab 12/20/24 22:28 Completed Bilirubin,Direct Stat Lab 12/20/24 22:28 Completed CBC Stat Lab 12/20/24 22:28 Completed Comprehensive Metabolic Panel Stat Lab 12/20/24 22:28 Completed Magnesium Stat Lab 12/20/24 22:28 Completed Partial Thromboplastin Time Stat Lab 12/20/24 23:25 Completed Prothrombin Time with INR Stat Lab 12/20/24 23:25 Completed TSH [Thyroid Stimulating Hormone] Stat Lab 12/20/24 22:28 Completed Troponin I Stat Lab 12/20/24 22:28 Completed DiphenhydrAMINE INJ [Benadryl Inj] Med 12/20/24 22:38 Discontinued 50 mg .ROUTE .STK-MED ONE DiphenhydrAMINE INJ [Benadryl Inj] Med 12/20/24 22:35 Discontinued 50 mg IVP X1 STA Labetalol IV [Trandate IV] Med 12/21/24 00:06 Discontinued 10 mg IVP Q15M PRN MethylPREDNISolone.* [SoluMEDROL Inj] Med 12/20/24 22:37 Discontinued 125 mg .ROUTE .STK-MED ONE MethylPREDNISolone.* [SoluMEDROL Inj] Med 12/20/24 22:35 Discontinued 125 mg IVP X1 ONE Sodium Chloride 0.9% 1000 ml [Ns] 1,000 ml Med 12/20/24 22:15 Discontinued IV Q10H hydrALAZINE INJ [Apresoline Inj] Med 12/21/24 00:27 Discontinued 10 mg IVP X1 ONE Oxygen Delivery NOW RT 12/20/24 22:14 Completed Vital Signs Vital signs: Vital Signs Temperature 97.8 F 12/20/24 22:12 Pulse Rate 102 H 12/20/24 22:12 Respiratory Rate 18 12/20/24 22:12 Blood Pressure 119/77 12/20/24 22:12 Pulse Oximetry (%) 95 12/20/24 22:12 Oxygen Delivery Method Room Air 12/20/24 22:12 Neuro Symptoms / Deficit MDM Narrative MDM Narrative:: This section includes all my notes and documentations, including HPI, PE, and ED course. Henry Dillard MD HPI: 84yo female with history of ESRD on HD, HTN, DM BIBA from home here for neurological symptoms. Family noticed the patient was dragging her foot, left facial droop, and slurred speech this morning, about 12 hours ago. No other complaints. ROS: Can't obtain due to the patient not answering questions. Physical Exam: General: Alert and oriented. No acute distress. High BP noted. Eyes: Conjunctivae and lids clear. EOMI. PERRL. ENT: No nasal congestion. Neck: Supple. No carotid bruit. No JVD. Heart: RRR. Lungs: No respiratory distress. Good air movement. No rhonchi, wheezing, rales. Abdomen: Soft and nontender. Normal bowel sounds. No distension. No rebound or guarding. Back: No CVA tenderness. Skin: Warm and dry. Neuro: Alert and oriented X 3. Cranial Nerves II-XII grossly intact. Equivocal left lower extremity weakness. I reviewed EMS notes. I reviewed all diagnostic test results. My interpretation of the EKG is sinus rhythm with nonspecific ST-T changes. My interpretation of the chest x-ray is NAD. My review of the CT head report is subtle 4 mm hyperdensity in the right brainstem pontine level. My review of the CT angio head neck report is NAD. My review of the CT cervical spine report is no fracture. My review of the CT chest abdomen pelvis report is no acute findings. Blood tests unremarkable. At this point, diagnoses include: Hemorrhagic cerebrovascular accident (CVA) Treatment here included: Solumedrol IV fluid Labetalol 10mg IV I discussed the case with our teleneurologist. About the presentation and exam and diagnostics and treatments here. Recommended MRI, no availability here at this time. I discussed the case with Dr. Aragon, neurosurgeon at [facility]. About the presentation and exam and diagnostics and treatments here. And need of further care there. Will accept the patient. Henry Dillard MD Patient data External records reviewed:: [facility] previous records and EMS form Clinical information provided by:: EMS Social determinants that could affect healthcare access:: none Patient has the following chronic illnesses:: ESRD on HD, HTN, DM How is presenting disease/condition affected by chronic disease/condition?: uneffected by Evaluation data The following diagnostics were reviewed and interpreted by me:: lab results, radiology exam(s) and EKG tracing(s) (My interpretation of the EKG is: Sinus rhythm (84 bpm) with nonspecific ST-T changes. Henry Dillard MD) Lab and/or radiology exams considered but not ordered:: none Interpretation Summary: I reviewed all diagnostic test results. My interpretation of the EKG is sinus rhythm with nonspecific ST-T changes. My interpretation of the chest x-ray is NAD. My review of the CT head report is subtle 4 mm hyperdensity in the right brainstem pontine level. My review of the CT angio head neck report is NAD. My review of the CT cervical spine report is no fracture. My review of the CT chest abdomen pelvis report is no acute findings. Blood tests unremarkable. Medications / Prescriptions Medications or Prescriptions considered but not ordered:: none Medication administrations:: Medication Administration History Discontinued Medications Diphenhydramine HCl (Diphenhydramine Inj 50 Mg/Ml Vial) 50 mg IVP X1 STA Stop: 12/20/24 22:36 Diphenhydramine HCl (Diphenhydramine Inj 50 Mg/Ml Vial) Confirm Administered Dose 50 mg .ROUTE .STK-MED ONE Stop: 12/20/24 22:39 Hydralazine HCl (Hydralazine Inj 20 Mg/Ml Vial) 10 mg IVP X1 ONE Stop: 12/21/24 00:28 Sodium Chloride (Ns) 1,000 mls @ 100 mls/hr IV Q10H ACE Stop: 01/19/25 22:14 Labetalol HCl (Labetalol Inj 5 Mg/Ml Vial 20 Ml) 10 mg IVP Q15M PRN PRN Reason: HYPER Last Admin: 12/21/24 00:29 Dose: 10 mg Documented By: MARIANO Methylprednisolone Sodium Succinate (Methylprednisolone Sod Succ 62.5 Mg/Ml 2ml Vial) 125 mg IVP X1 ONE Stop: 12/20/24 22:36 Methylprednisolone Sodium Succinate (Methylprednisolone Sod Succ 62.5 Mg/Ml 2ml Vial) Confirm Administered Dose 125 mg .ROUTE .STK-MED ONE Stop: 12/20/24 22:38 Solumedrol IV fluid Labetalol 10 mg IV Consultations Consultation(s) initiated? (list below): Yes Consultation #1 (Physician, Specialty, Details): I discussed the case with our teleneurologist. About the presentation and exam and diagnostics and treatments here. And need of further care in the hospital. Recommended MRI. Consultation #2 (Physician, Specialty, Details): I discussed the case with Dr. Aragon, neurosurgeon from [facility]. About the presentation and exam and diagnostics and treatments here. And need of further care there. Agreed to accept the patient. Diagnosis Neuro Differential Diagnosis: subarachnoid hemorrhage, cerebrovascular accident and transient cerebral ischemia Most likely diagnosis given after review of the tests above:: Hemorrhagic cerebrovascular accident (CVA) Admission Indicated Admission indicated?: not indicated Explain why admission is indicated or not indicated:: No neurosurgery service at this facility. Admission Request Was there a request for admission?: No Disposition Plan Disposition Plan: Transfer Critical Care Time Critical Care Time Critical Care Time: Yes Total Critical Care Time (min.): 45 Attestation: Due to a high probability of clinically significant, life threatening deterioration, the patient required my highest level of preparedness to intervene emergently and I personally spent this critical care time directly and personally managing the patient. This critical care time included obtaining a history; examining the patient; ordering and review of studies; arranging urgent treatment with development of a management plan; evaluation of patient's response to treatment; frequent reassessment; and discussions with family and other providers. It was exclusive of separately billable procedures and treating other patients and teaching time. Henry Dillard MD Discharge Plan Plan Patient Disposition: [facility] Pt Being Transferred to: [facility] Service Needed for Transfer: Neurosurgery Prescriptions/Referrals Prescriptions/Med Rec: No Action losartan 100 mg tablet 100 mg PO DAILY Patient Comments: TAKE 1 TABLET BY MOUTH EVERY DAY sertraline 25 mg tablet 25 mg PO HS Patient Comments: TAKE 1 TABLET BY MOUTH AT BEDTIME clonidine HCl 0.1 mg tablet 0.1 mg PO BID Qty: 60 0RF atorvastatin 20 mg tablet 20 mg PO HS benzonatate 100 mg capsule 100 mg PO TID Patient Comments: TAKE 1 CAPSULE BY MOUTH TWICE DAILY albuterol sulfate 90 mcg/actuation HFA aerosol inhaler 2 puff inhalation Q6H PRN (Reason: shortness of breath or wheezing) Qty: 8.5 0RF labetalol 100 mg tablet 100 mg PO BID Patient Comments: TAKE 1 TABLET BY MOUTH TWICE A DAY (DME) True Metrix Glucose Test Strip Strip Patient Comments: USE TO TEST BLOOD SUGAR THREE TIMES DAILY (DME) pen needle, diabetic [Jeanne 2nd Gen Pen Needle] 32 gauge x 5/32 needle Patient Comments: USE DIRECTED FOUR TIMES DAILY insulin aspart U-100 [Novolog FlexPen U-100 Insulin] 100 unit/mL (3 mL) insulin pen 4 unit SUBCUT TIDWM 30 Days Qty: 15 0RF Patient Comments: INJECT 10 UNITS UNDER THE SKIN THREE TIMES DAILY WITH MEALS insulin degludec [Tresiba FlexTouch U-200] 200 unit/mL (3 mL) insulin pen 20 unit SUBCUT QDAY 30 Days Qty: 3 0RF Referrals: Collin Herrera PA-C [Primary Care Provider] - In 1 week Problem List Clinical Impression: Hemorrhagic cerebrovascular accident (CVA) Patient/Caregiver Discharge Instructions Print Language: Upper Sorbian Stand Alone Forms: Grace Award Info., Patient Portal Info Letter
--- NOTE | 2024-12-20 22:14 | XR_ITS ---
Examination: CTA carotids with intravenous contrast CTA brain, head with intravenous contrast. 2-D sagittal, coronal reconstructions. 3-D reconstructions. Exam date and time: December 20, 2024, 10:26 p.m. INDICATIONS: Stroke alert, onset focal neurologic deficit today CTDI: vol (mGy) 11.5 DLP: (mGycm) 425 Technique: Multiple CTA axial brain, head carotid images post intravenous contrast injection 75 cc, [id number]. 2-D sagittal, coronal reconstructions. 3-D reconstructions, 3-D post processing including vascular maximum intensity projection images. Low dose protocols were performed. One or more of the following dose reduction techniques were used; automated exposure control, adjustment of the mA and/or KV according to patient size, use of iterative reconstruction technique. Findings: No significant common carotid carotid bifurcation or internal carotid artery stenoses Dominant left vertebral artery with no critical vertebral artery stenoses in the neck Intracranial vertebral arteries basilar artery and posterior cerebral branches do fill Juxtasellar internal carotid arteries show calcifications, heavy involving the right juxtasellar internal carotid artery The M1 segments middle cerebral arteries and middle cerebral artery trifurcation vessels as well as the anterior cerebral arteries do not show occlusions There is 50% stenosis at the origin of the M1 segment left middle cerebral artery IMPRESSION: No significant neck arterial stenoses No cerebral large vessel arterial occlusions
--- NOTE | 2024-12-20 22:14 | XR_ITS ---
EXAMINATION: AP chest single view TECHNIQUE: AP portable upright chest single view Date and time: December 20, 2024, 1109 hours INDICATIONS: Stroke alert today FINDINGS: Mild prominence left ventricle Right internal jugular dialysis catheter tip SVC Mild vascular congestion. No aspiration pneumonia. No pneumothorax. Prominent osteopenia, osseous structures appear intact IMPRESSION: No aspiration pneumonia
--- NOTE | 2024-12-20 22:14 | EKG_ITS ---
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
--- NOTE | 2024-12-20 22:14 | XR_ITS ---
Examination: CT brain head without contrast. 2-D sagittal coronal reconstructions Date and time of exam: December 20 0 25, 1018 hours INDICATIONS: Stroke alert, onset focal neurologic deficit today COMPARISON: November 02, 2024 CTDI: vol (mGy): 48.1 DLP: (mGycm): 937 Technique: Multiple CT axial sections of the brain have been obtained, 5 mm slice thickness. Contrast has not been administered. 2-D sagittal, coronal reconstructions have been obtained Low dose protocols were performed. One or more of the following dose reduction techniques were used; automated exposure control, adjustment of the mA and/or KV according to patient size, use of iterative reconstruction technique. Findings: No significant ventricular enlargement. Small old infarct left basal ganglia Subtle 4 mm hyperdensity in the right brainstem pontine level, axial image 29 No mass effect or midline shift Basal cisterns are not remarkable. Fourth ventricle is midline. Cranial vault intact. Impression: Subtle 4 mm hyperdensity in the right brainstem pontine level, axial image 29, consider small area of hemorrhage, recommend close clinical observation and repeat brain scan in the a.m.
--- NOTE | 2024-12-20 22:15 | XR_ITS ---
Examination: CT cervical spine without contrast 2-D sagittal reconstructions 2-D coronal reconstructions 3-D reconstructions. Exam date and time: December 20, 2024, 1036 hours INDICATIONS: Stroke alert, patient found down unconscious with neck pain CTDI:vol (mGy) 14.4 DLP: (mGycm) 288 Technique: Multiple 2 mm axial sections of the cervical spine have been obtained. The coronal and sagittal reconstructions have been obtained. 3-D reconstructions have been obtained. Low dose protocols were performed. One or more of the following dose reduction techniques were used; automated exposure control, adjustment of the mA and/or KV according to patient size, use of iterative reconstruction technique. Findings: Axial sections demonstrate intact base of the skull. C1 exhibit satisfactory relationship to the odontoid. No acute cervical vertebral body fracture seen. Alignment posterior spinous processes satisfactory. 6 mm pulmonary nodule left upper lobe axial image 100 Impression: No acute cervical fracture.
--- NOTE | 2024-12-20 22:15 | XR_ITS ---
Examination: CT chest, without intravenous contrast. CT abdomen, without intravenous contrast. CT pelvis, without intravenous contrast. 2-D sagittal and coronal reconstructions. 3-D reconstructions. Date and time of exam: December 20, 2024, 10:36 p.m. INDICATIONS: Patient found down unconscious today with chest abdominal pain CTDI vol (mgy) 19.8 DLP (MGycm) 1338 Technique: Multiple CT images, 3.0 mm slice thickness, obtained chest, abdomen, pelvis, with the high-resolution 64 slice scanner.. Sagittal and coronal 2-D reconstructions are obtained. 3-D reconstructions Low dose protocols were performed. One or more of the following dose reduction techniques were used; automated exposure control, adjustment of the mA and/or KV according to patient size, use of iterative reconstruction technique. Findings: 18 mm right thyroid nodule Thoracic aortic calcification no aneurysm dilatation Pulmonary artery segments are intact 6 mm pulmonary nodule right upper lobe image 75 4 mm pulmonary nodule lingular segment image 150 8 mm pulmonary nodule left upper lobe image 47 No pneumothorax pulmonary contusion or hemothorax Heavy calcification left main left anterior descending and left circumflex right coronary arteries The manubrium and the body of the sternum appear intact No thoracic fracture is noted Right internal jugular dialysis catheter tip SVC Ribs appear intact No liver splenic or renal laceration Abdominal aorta intact, no free blood in the abdomen Negative for pneumoperitoneum Tiny fat-containing umbilical hernia Urinary bladder intact Absent uterus Lumbar vertebral bodies sacral segments bones of the pelvis and hips appear intact IMPRESSION: Thoracic aorta pulmonary arteries intact No hemopericardium, pneumothorax, pulmonary contusion or hemothorax Suspicious for pulmonary nodular metastatic disease as above, recommend continued 6-month follow-up CT chest without contrast No abdominal parenchymal laceration Abdominal aorta intact No free blood in the abdomen or pelvis Osseous structures appear intact
[2024-12-20 22:23] VITALS: PULSE 84; PULSE 89; RESP 14; O2SAT 100; BMI 31.1
[2024-12-20 22:58] LABS: Basophils # (Auto) 0.1 Thou/mm3 (0.0-0.2); Basophils % (Auto) 1 % (0-2.5); Eosinophils # (Auto) 0.1 Thou/mm3 (0.0-0.5); Eosinophils % (Auto) 1 % (0-10); Hematocrit 39.0 % (36.0-46.0); Hemoglobin 12.8 g/dL (12.0-16.0); Immature Granulocytes Auto 0.04 Thou/mm3 (0.00-0.00); Lymphocytes # (Auto) 2.2 Thou/mm3 (1.0-4.8); Lymphocytes % (Auto) 19 % (10-50); Mean Corpuscular HGB Conc 32.8 g/dl (31.0-37.0); Mean Corpuscular Hemoglobin 27.9 pg (25.0-35.0); Mean Corpuscular Volume 85 fL (80-100); Monocytes # (Auto) 0.6 Thou/mm3 (0.0-0.8); Monocytes % (Auto) 5 % (0-12); Neutrophils # (Auto) 8.7 Thou/mm3 (1.8-7.7); Neutrophils % (Auto) 75 % (37-80); Nucleated Red Blood Cell # 0.00 Thou/mm3 (0.00-0.00); Nucleated Red Blood Cell % 0 /100 WBC (0); Platelet Count 220 Thou/mm3 (140-440); RDW Standard Deviation 47.8 fL (36.4-46.3); Red Blood Count 4.58 Miln/mm3 (4.00-5.20); White Blood Count 11.6 Thou/mm3 (3.6-11.0)
[2024-12-20 23:13] LABS: Base Excess -2 (-3-3); HCO3 24 mEq/L (20-26); Inspired Oxygen, FIO2 28 %; O2 Saturation 97 % (91-98); PCO2 42 mmHg (32.0-48.0); PO2 86 mmHg (83-108); pH, Arterial 7.36 (7.35-7.45)
[2024-12-20 23:14] LABS: Allen Test Performed/OK; Puncture Site Left Radial
[2024-12-20 23:22] LABS: B-Type Natriuretic Peptide 86 pg/mL (0-100)
[2024-12-20 23:30] LABS: Alanine Aminotransferase 11 U/L (10-49); Albumin, Serum 3.9 gm/dL (3.4-4.8); Albumin/Globulin Ratio 1.4 (1.2-2.2); Alcohol, Blood Medical < 3.0 mg/dL (0-10.0); Alkaline Phosphatase 132 U/L (46-116); Anion Gap 14 (7-16); Aspartate Amino Transferase 14 U/L (0-34); BUN/Creatinine Ratio 11 Ratio (12-20); Bilirubin,Direct < 0.1 mg/dL (0.0-0.3); Bilirubin,Total 0.3 mg/dL (0.3-1.2); Blood Urea Nitrogen 33 mg/dL (9-23); Calcium 9.4 mg/dL (8.3-10.6); Calcium (Corrected) 9.5 mg/dL (8.5-10.1); Carbon Dioxide 22.9 mMol/L (20.0-31.0); Chloride 105 mMol/L (98-107); Creatinine (Component) 3.1 mg/dL (0.6-1.3); Globulin 2.7 gm/dL (2.3-3.5); Glucose 156 mg/dL (74-106); Magnesium 2.2 mg/dL (1.6-2.6); Osmolality,Calculated 293 (275-295); Potassium 3.8 mMol/L (3.4-5.1); Sodium 142 mMol/L (136-145); Thyroid Stimulating Hormone 1.91 uIU/mL (0.55-4.78); Total Protein 6.6 gm/dL (5.7-8.2); Troponin I < 0.020 ng/mL (0.0-0.045); eGFR 14 See Note
[2024-12-20 23:51] LABS: INR 1.0 (0.9-1.3); Partial Thromboplastin Time 31.6 Seconds (22.0-36.0); Prothrombin Time 11.0 Seconds (9.0-12.2)
[2024-12-21 00:13] VITALS: BP 220/105; PULSE 86; RESP 16; O2SAT 100
--- NOTE | 2024-12-21 00:13 | PC.NURSE ---
THIS PT IS ACCEPTED TO [facility] BY DR. PEÑALOZA. IVORY WAS THE FACILITY REP I SPOKE WITH FOR ACCEPTING INFO. REPORT # [id number].
[2024-12-21 00:29] VITALS: BP 220/105; PULSE 86
[2024-12-21] MEDS: LABETALOL INJ 5 MG/ML VIAL 20 ML 10 MG IVP (00:29)
[2024-12-21 00:46] VITALS: BP 195/93
[2024-12-21 01:04] VITALS: BP 198/102; PULSE 84; RESP 16; TEMP 36.8; O2SAT 100
== END 2024-12-21 01:04 | disposition short-term general hospital (02) ==
PROVIDERS: Emergency Provider Emergency Medicine; PCP Physician Assistant
DX: I62.9 Nontraumatic intracranial hemorrhage, unspecified (principal); G81.94 Hemiplegia, unspecified affecting left nondominant side; R47.81 Slurred speech; R29.810 Facial weakness; R29.701 NIHSS score 1; I45.10 Unspecified right bundle-branch block; I12.0 Hypertensive chronic kidney disease with stage 5 chronic kidney disease or end stage renal disease; N18.6 End stage renal disease; E11.22 Type 2 diabetes mellitus with diabetic chronic kidney disease; M54.2 Cervicalgia; R10.9 Unspecified abdominal pain; R07.9 Chest pain, unspecified; Z99.2 Dependence on renal dialysis; Z75.1 Person awaiting admission to adequate facility elsewhere
CPT/HCPCS: 36415; 36600; 70450; 70496; 70498; 71045; 71250; 72125; 74176; 80053; 80307; 80320; 81001; 82248; 82803; 83735; 83880; 84443; 84484; 85025; 85610; 85730; 87502; 93005; 96374; 99285; A4649; J3490; Q9967; G0480; J1920

== ENCOUNTER 2024-12-26 21:24 | Inpatient (IN) | payer MEDICARE, MEDICAID, SELFPAY ==
[2024-12-26 21:47] VITALS: BP 129/75; PULSE 66; RESP 18; TEMP 36.4; O2SAT 98
--- NOTE | 2024-12-26 22:29 | PD.RESHP ---
Documentation for date of: 12/26/24 [facility] History of Present Illness History of present illness: Ms. Saldivar is an 84 y/o female with PMHx HTN, T2DM, ESRD (dialysis T/Th/Wed) with Dr. Brito, hyperlipidemia, HFpEF (LVEF 60-65%), HLD who presented to the ED on 12/20/24 with elevated BP >200/100s, asymptomatic. Patient had a ground level fall at home when coming back to bed from the bathroom. She does not remember falling or feeling dizzy, nauseous, lightheaded, chest pain/pressure, acute change in vision. Patient initially presented to the ED with left-sided weakness, slurred speech. Initial NIHSS 1. Labs significant for WBC 11.6. BUN 33, Cr 3.1, eGFR 14, alk phos 132. CT head showed subtle 4 mm hyperdensity in the right pontine c/f small hemorrhage. CTA, EKG, CT C spine negative. Patient transferred to [facility] for neurosurgery. At [facility], MRI w/o showed no areas of diffusion restriction/no acute stroke, midline shift, or mass effect; showed chronic white matter changes, age-related atrophy with compensatory dilation of ventricles and sulci, small area of blooming artifact on right side of britany w/o concommitant signal abnormality, c/w old bleed. Patient was restarted on Labetalol, BP remained stable. Patient reported b/l LE weakness and paresthesias. Patient declined spine MRI. Patient was medically cleared for post-acute rehab placement. At bedside, patient reports that she feels much better. Notes that she feels weak/unsteady on her feet because she has not been walking and when she does, she has to use a walker. Before this hospitalization, she did not require mobility assistance devices. She denies headache, acute vision changes, dizziness, nausea, vomiting, paresthesias. She lives alone in a [facility] community since her 3 years ago, though her children come to visit her. Upon arrival as transfer back to [facility], patients vital stable, BP 129/75, HR 66. PMHx: HTN, T2DM, ESRD (dialysis T/Th/Sat) with Dr. Brito, hyperlipidemia, HFpEF (LVEF 60-65%), chronic interstitial cystitis, chronic normocytic anemia, hyperlipidemia, anxiety, vesicovaginal fistula, arthritis Allergies: Amoxicillin, codeine, diazepam, hydrocodone, ibuprofen, meperidine, morphine, propoxyphene, adhesive tape, levofloxacin Home meds: (as listed in [facility] notes, pt does not remember the medications she takes) - Pending official med rec Claritin 10 mg PO daily Clonidine 0.1 mg PO BID Elmiron 100 mg PO TID Labetalol 100 mg PO BID Lasix 40 mg PO daily Lipitor 20 mg PO daily Novolog 10U TID w/ meals Prilosec OTC 20 mg PO daily Tessalon perles 100 mg PO TID Tresiba 45U daily SgHx: Appendectomy, cholecystectomy over 10 years ago SHx: Lives in [facility] community, 3 years ago, denies smoking, EtOH, recreational drug use. FHx: nne reported Review of Systems Review of Systems Narrative Review of Systems: 14 point ROS negative other than HPI Exam Vital Signs Temp Pulse Resp BP Pulse Ox O2 Del Method 97.6 F 66 18 129/75 98 Room Air 12/26/24 21:47 12/26/24 21:47 12/26/24 21:47 12/26/24 21:47 12/26/24 21:47 12/26/24 21:47 Narrative Exam General: No acute distress, well nourished Eye: PERRL, EOMI, normal conjunctiva, no scleral icterus HENT: Normocephalic, atraumatic, normal hearing, moist oral mucosa Neck: Supple, non-tender, no JVD, no lymphadenopathy Lungs: Clear to auscultation bilaterally, non-labored respirations, symmetric chest rise, no use of accessory muscles Heart: Normal S1 and S2, no S3 or S4 appreciated. Normal rate and regular rhythm, no murmurs, rubs gallops, or edema. Peripheral pulses intact bilaterally, capillary refill brisk distally Abdomen: Soft, non-tender, non-distended, normal bowel sounds. No guarding or rebound tenderness. Musculoskeletal: Normal range of motion and strength, no tenderness or swelling Skin: Skin is warm, dry. Several bruises on lateral right thigh, left arm Psychiatric: Cooperative, appropriate mood and affect Neurologic: Mental status: Orientation: Oriented to person, place, time, and situation Communication: Patient is cooperative and can follow simple instructions Language: Speech fluent, normal rate and volume, comprehension intact Cranial nerves: CN II: Visual de la torre intact CN III: Pupils equal, round, and reactive to light CN III, IV, : No gaze deviation, no nystagmus Horizontal pursuit: intact Vertical pursuit: intact Ptosis: none CN V: Facial sensation to light touch intact bilaterally at the forehead, cheeks, and jaw line CN VII: Face symmetric, no facial droop appreciated CN VIII: Able to hear and respond to conversation at normal volume, intact to finger rub CN IX, X: Palate elevation symmetric, uvula midline CN XI: Head turn and shoulder shrug strong, symmetric bilaterally CN XII: Normal tongue protrusion without deviation, no fasciculations Motor: Normal bulk and tone No abnormal movements or fasciculations Muscle strength: Shoulder abduction: R 5/5 L 5/5 Elbow flexion: R 5/5 L 5/5 Elbow extension: R 5/5 L 5/5 Hip flexion: R 5/5 L 5/5 Hip extension: R 5/5 L 5/5 Knee flexion: R 5/5 L 5/5 Knee extension: R 5/5 L 5/5 Sensory: RUE: Light touch intact LUE: Light touch intact RLE: Light touch intact LLE: Light touch intact Cerebellum: RUE: No dysmetria (finger to nose), no dysdiadochokinesia (rapid alternating movements) LUE: No dysmetria (finger to nose), no dysdiadochokinesia (rapid alternating movements) Results: Labs 12/26/24 22:30 12/26/24 22:30 Quality Measures Quality Measures VTE prophylaxis Advance care planning discussed with:: patient Medications Home Medications and Allergies Home Medications ?Medication ?Instructions ?Recorded ?Confirmed ?Type loratadine 10 mg tablet 10 mg PO QDAY 04/22/21 12/20/24 History insulin degludec 200 unit/mL (3 45 unit subcut QDAY 08/12/21 12/20/24 History mL) subcutaneous pen (Tresiba FlexTouch U-200 insulin) atorvastatin 20 mg tablet 20 mg PO HS 03/11/22 12/20/24 History benzonatate 100 mg capsule 100 mg PO TID 03/11/22 12/20/24 History insulin aspart U-100 100 unit/mL 6 unit subcut TIDWM 03/11/22 12/20/24 History (3 mL) subcutaneous pen (Novolog FlexPen U-100 Insulin aspart) losartan 100 mg tablet 100 mg PO DAILY for BP 04/27/24 12/20/24 History sertraline 25 mg tablet 25 mg PO HS 04/28/24 12/20/24 History Allergies Allergy/AdvReac Type Severity Reaction Status Date / Time amoxicillin Allergy Severe Vomiting Verified 12/20/24 09:59 codeine Allergy Severe PALPITATION Verified 12/20/24 09:59 S diazepam Allergy Severe RAPID Verified 12/20/24 09:59 HEARTRATE hydrocodone Allergy Severe Vomiting Verified 12/20/24 09:59 hydromorphone Allergy Severe Agitated Verified 12/20/24 09:59 ibuprofen Allergy Severe BLEEDING Verified 12/20/24 09:59 IN STOMACH PER PT meperidine Allergy Severe RAPID Verified 12/20/24 09:59 HEARTRATE morphine Allergy Severe RAPID Verified 12/20/24 09:59 HEARTRATE propoxyphene Allergy Severe RAPID Verified 12/20/24 09:59 HEARTRATE adhesive tape AdvReac Severe Hives Verified 12/20/24 09:59 levofloxacin AdvReac Severe VOMITS Verified 12/20/24 09:59 Assessment & Plan Plan Ms. Saldivar is an 84 y/o female with PMHx HTN, T2DM, ESRD (dialysis //Wed) with Dr. Brito, hyperlipidemia, HFpEF (LVEF 60-65%), HLD who presented to the ED on 12/20/24 with elevated BP >200/100s, asymptomatic. Patient transferred to [facility] for neurosurgery services, found to have old hemorrhage in right pontine, no acute stroke or hemorrhage. Transferred back to [facility] for further management. #Hypertensive urgency vs emergency Patient initially came to the ED with HTN >200/100, left facial droop, slurred speech. NIHSS 1. MRI at [facility] showed no acute ischemic stroke, mass effect, midline shift. VSS at this time Plan: - CTM VS - Resumed labetalol 100 mg PO BID (home med) #Left facial droop - resolved #Slurred speech - resolved i/s/o HTN urgency vs emergency NIHSS 1 MRI at [facility] showed no acute ischemic stroke, only chronic microvascular white matter changes No focal neuro deficits on exam Plan: - CTM for focal neuro deficits - Pending lipid panel, A1C, TSH - Pending PT #Hx pontine hemorrhage MRI w/o at [facility] showed no areas of diffusion restriction/no acute stroke, midline shift, or mass effect; showed chronic white matter changes, age-related atrophy with compensatory dilation of ventricles and sulci, small area of blooming artifact on right side of britany w/o concommitant signal abnormality, c/w old bleed. Plan: - Nothing to do at this time - CTM for focal neuro deficits - SCD for DVT ppx #B/L lower extremity weakness, paresthesias Patient refused spine MRI at [facility] DDX: deconditioning, spinal stenosis Plan: - Pending PT - CTM for focal neuro deficits #Ground level fall #Presyncope? No reported preceding symptoms, not on blood thinners, patient does not remember what happened right before or after the fall. [facility] notes mention no LOC Plan: - TTE - Tylenol PRN for pain - CTM bruises on right lateral thigh and left arm #ESRD on dialysis T//Wed Follows with Dr. Brito BUN 33, Cr 3.1, eGFR 14 on 12/20 Plan: - Consulted Dr. Brito for dialysis - Renally dose medications - Avoid nephrotoxic agents. Avoid NSAIDs #HFpEF (LVEF 60-65%) No s/sx fluid overload at this time Plan: - Lasix 40 mg PO daily (home med) #Type 2 diabetes mellitus insulin-dependent Plan: - SSI #Hyperlipidemia Plan: - Pending lipid panel - Atorvastatin 20 mg PO daily (home med) Checklist Dispo: Admit to med tele Diet: Renal Bowel Reg: doc/senna PRN VTE ppx: SCD given hx pontine hemorrhage GI ppx: n/a Pain mgmt: Tylenol PRN Code status: full Plan discussed with Dr. Dougherty and Dr. Loly Vega MD PGY1 Attending Provider Attestation/Addendum 85-year-old female who was repatriated from [facility] where she was sent for possible intracranial hemorrhage. MRI done at [facility] showed no acute hemorrhage. Patient had previous pontine stroke. Her blood pressure is better controlled. She is a dialysis patient. Her station attendant is Dr. Reinoso. Her last dialysis was last Wednesday. Continue current medications. Monitor blood pressure. The patient has lower extremity weakness for which she refused MRI of the spine earlier. I discussed with and supervised the resident physician who took care of this patient. I agree with the assessment and plan as above.
[2024-12-26 22:53] LABS: Basophils # (Auto) 0.1 Thou/mm3 (0.0-0.2); Basophils % (Auto) 1 % (0-2.5); Eosinophils # (Auto) 0.3 Thou/mm3 (0.0-0.5); Eosinophils % (Auto) 3 % (0-10); Hematocrit 33.1 % (36.0-46.0); Hemoglobin 10.7 g/dL (12.0-16.0); Immature Granulocytes Auto 0.26 Thou/mm3 (0.00-0.00); Lymphocytes # (Auto) 3.3 Thou/mm3 (1.0-4.8); Lymphocytes % (Auto) 27 % (10-50); Mean Corpuscular HGB Conc 32.3 g/dl (31.0-37.0); Mean Corpuscular Hemoglobin 27.7 pg (25.0-35.0); Mean Corpuscular Volume 86 fL (80-100); Monocytes # (Auto) 0.7 Thou/mm3 (0.0-0.8); Monocytes % (Auto) 6 % (0-12); Neutrophils # (Auto) 7.9 Thou/mm3 (1.8-7.7); Neutrophils % (Auto) 62 % (37-80); Nucleated Red Blood Cell # 0.00 Thou/mm3 (0.00-0.00); Nucleated Red Blood Cell % 0 /100 WBC (0); Platelet Count 214 Thou/mm3 (140-440); RDW Standard Deviation 48.1 fL (36.4-46.3); Red Blood Count 3.86 Miln/mm3 (4.00-5.20); White Blood Count 12.6 Thou/mm3 (3.6-11.0)
[2024-12-26 23:09] LABS: Anion Gap 9 (7-16); BUN/Creatinine Ratio 8 Ratio (12-20); Blood Urea Nitrogen 21 mg/dL (9-23); Calcium 8.1 mg/dL (8.3-10.6); Carbon Dioxide 27.4 mMol/L (20.0-31.0); Chloride 99 mMol/L (98-107); Creatinine (Component) 2.8 mg/dL (0.6-1.3); Glucose 177 mg/dL (74-106); Osmolality,Calculated 277 (275-295); Potassium 3.9 mMol/L (3.4-5.1); Sodium 135 mMol/L (136-145); eGFR 16 See Note
--- NOTE | 2024-12-26 23:52 | PC.NURSE ---
Per Dr. Vega, IV access not necessary due to possible day discharge.
[2024-12-27] VITALS (15 sets, daily range): BP systolic 118–176; BP diastolic 55–91; PULSE 62–79; RESP 14–18; TEMP 36.2–36.5; O2SAT 93–100
[2024-12-27] MEDS: ONDANSETRON ODT 4 MG TABRAP PO (04:52)
[2024-12-27 05:53] LABS: Basophils # (Auto) 0.1 Thou/mm3 (0.0-0.2); Basophils % (Auto) 1 % (0-2.5); Eosinophils # (Auto) 0.4 Thou/mm3 (0.0-0.5); Eosinophils % (Auto) 3 % (0-10); Hematocrit 33.1 % (36.0-46.0); Hemoglobin 10.7 g/dL (12.0-16.0); Immature Granulocytes Auto 0.23 Thou/mm3 (0.00-0.00); Lymphocytes # (Auto) 2.9 Thou/mm3 (1.0-4.8); Lymphocytes % (Auto) 25 % (10-50); Mean Corpuscular HGB Conc 32.3 g/dl (31.0-37.0); Mean Corpuscular Hemoglobin 27.8 pg (25.0-35.0); Mean Corpuscular Volume 86 fL (80-100); Monocytes # (Auto) 0.8 Thou/mm3 (0.0-0.8); Monocytes % (Auto) 7 % (0-12); Neutrophils # (Auto) 7.4 Thou/mm3 (1.8-7.7); Neutrophils % (Auto) 63 % (37-80); Nucleated Red Blood Cell # 0.00 Thou/mm3 (0.00-0.00); Nucleated Red Blood Cell % 0 /100 WBC (0); Platelet Count 210 Thou/mm3 (140-440); RDW Standard Deviation 47.9 fL (36.4-46.3); Red Blood Count 3.85 Miln/mm3 (4.00-5.20); White Blood Count 11.9 Thou/mm3 (3.6-11.0)
[2024-12-27 06:19] LABS: Anion Gap 10 (7-16); BUN/Creatinine Ratio 7 Ratio (12-20); Blood Urea Nitrogen 21 mg/dL (9-23); Calcium 8.6 mg/dL (8.3-10.6); Carbon Dioxide 27.0 mMol/L (20.0-31.0); Cardiac Risk Estimate 3.4 RATIO (3.7-5.6); Chloride 99 mMol/L (98-107); Cholesterol 160 mg/dL (132-200); Creatinine (Component) 2.9 mg/dL (0.6-1.3); Glucose 187 mg/dL (74-106); HDL Cholesterol 47 mg/dL (40-60); LDL Cholesterol,Calculated 53 mg/dL (0-130); Magnesium 1.8 mg/dL (1.6-2.6); Osmolality,Calculated 279 (275-295); Phosphorous 4.1 mg/dL (2.4-5.1); Potassium 4.3 mMol/L (3.4-5.1); Sodium 136 mMol/L (136-145); Thyroid Stimulating Hormone 3.04 uIU/mL (0.55-4.78); Triglycerides 298 mg/dL (30-150); eGFR 16 See Note
[2024-12-27 06:24] LABS: Glucose Estimated Average 166 mg/dL (80-131); Hemoglobin A1C 7.4 % Hgb (4.8-6.0)
[2024-12-27] MEDS: LABETALOL 100 MG TABLET PO (08:21)
[2024-12-27] MEDS: INSULIN LISPRO (AdmeLOG) 1 UNIT/0.01 ML UNIT SC ×3 (08:21→17:04)
--- NOTE | 2024-12-27 09:06 | PD.RESPRO ---
Documentation for date of: 12/27/24 Subjective Subjective Interval history: Patient seen at bedside. No acute overnight events. Patient denies any chest pain, shortness of breath, abdominal pain, nausea, vomiting, dizziness. Patient counselled to take all 3 BP meds (labetalol, clonidine, losartan) as SBP >170 on just labetalol. Patient worked with PT and recommened SNF for improving strength and functioning. At falls risk. Exam Vital Signs Temp Pulse Resp BP Pulse Ox O2 Del Method 97.2 F 72 18 174/76 H 98 Room Air 12/27/24 08:00 12/27/24 08:22 12/27/24 08:00 12/27/24 08:22 12/27/24 08:00 12/27/24 08:00 Narrative Exam General: No acute distress, well nourished Eye: PERRL, EOMI, normal conjunctiva, no scleral icterus HENT: Normocephalic, atraumatic, normal hearing, moist oral mucosa Neck: Supple, non-tender, no JVD, no lymphadenopathy Lungs: Clear to auscultation bilaterally, non-labored respirations, symmetric chest rise, no use of accessory muscles Heart: Normal S1 and S2, no S3 or S4 appreciated. Normal rate and regular rhythm, no murmurs, rubs gallops, or edema. Peripheral pulses intact bilaterally, capillary refill brisk distally Abdomen: Soft, non-tender, non-distended, normal bowel sounds. No guarding or rebound tenderness. Neuro: No focal neuro deficits. No facial droop. No parasthesias. Bilat upper and lower limbs strength 5/5. Moving all 4 limbs. Musculoskeletal: Normal range of motion and strength, no tenderness or swelling Skin: Skin is warm, dry. Several bruises on lateral right thigh, left arm Psychiatric: Cooperative, appropriate mood and affect Objective Labs 12/28/24 04:49 12/28/24 04:49 Labs: Laboratory Results - last 24 hr 12/26/24 12/27/24 22:30 04:56 WBC 12.6 H 11.9 H RBC 3.86 L 3.85 L Hgb 10.7 L D 10.7 L Hct 33.1 L 33.1 L MCV 86 86 MCH 27.7 27.8 MCHC 32.3 32.3 RDW Std Deviation 48.1 H 47.9 H Plt Count 214 210 Neut % (Auto) 62 63 Lymph % (Auto) [address] [place] % (Auto) 6 7 Eos % (Auto) 3 3 Baso % (Auto) 1 1 Neut # (Auto) 7.9 H 7.4 Lymph # (Auto) 3.[address] # (Auto) 0.7 0.8 Eos # (Auto) 0.3 0.4 Baso # (Auto) 0.1 0.1 Immature Gran # (Auto) 0.26 H 0.23 H Absolute Nucleated RBC 0.00 0.00 Immature Gran % 2 H 2 H Nucleated RBC % 0 0 Sodium 135 L 136 Potassium 3.9 4.3 Chloride 99 99 Carbon Dioxide 27.4 27.0 Anion Gap 9 10 BUN 21 21 Creatinine 2.8 H 2.9 H Estim Creat Clear Calc Not Performed. Not Performed. eGFR 16 L 16 L BUN/Creatinine Ratio 8 L 7 L Glucose [address] Glu mg/dL 166 H Hemoglobin A1c 7.4 H Calculated Osmolality 277 279 Calcium 8.1 L 8.6 Phosphorus 4.1 Magnesium 1.8 Triglycerides 298 H Cholesterol 160 LDL Cholesterol, Calc 53 HDL Cholesterol 47 Cholesterol/HDL Ratio 3.4 L TSH 3.04 Quality Measures Quality Measures VTE prophylaxis Advance care planning discussed with:: patient Assessment & Plan Assessment Current Active Medications: Generic Name Dose Route Start Last Admin Trade Name Freq PRN Reason Stop Dose Admin Acetaminophen 650 mg 12/26/24 22:26 Acetaminophen 325 Mg Tablet PO 01/25/25 22:25 Q6H PRN Fever >100.3 Acetaminophen 650 mg 12/26/24 22:26 Acetaminophen 325 Mg Tablet PO 01/25/25 22:25 Q6H PRN PAIN SCALE 1-3 (mild Atorvastatin Calcium 20 mg 12/27/24 21:00 Atorvastatin Calcium 20 Mg Tablet PO 01/26/25 20:59 HS ACE Dextrose 25 ml 12/26/24 22:56 Dextrose 50%-Water Inj 50 Ml Syringe IV 01/25/25 22:55 Q15MIN PRN BG 50-70 responsive npo pt Dextrose 50 ml 12/26/24 22:56 Dextrose 50%-Water Inj 50 Ml Syringe IV 01/25/25 22:55 Q15MIN PRN BG <50 OR BG <70 & pt unresponsive Furosemide 40 mg 12/27/24 09:00 12/27/24 08:22 Furosemide 40 Mg Tablet PO 01/26/25 08:59 40 mg QDAY ACE Administration Glucagon 1 mg 12/26/24 22:56 Glucagon Inj 1 Mg Vial IM Q15MIN PRN BG <70, and no IV access Insulin Human Lispro 0 unit 12/27/24 07:30 12/27/24 08:21 Insulin Lispro (Admelog) 1 Unit/0.01 Ml Unit SC 01/26/25 07:29 1 unit AC ACE Administration Protocol Labetalol HCl 100 mg 12/27/24 09:00 12/27/24 08:21 Labetalol 100 Mg Tablet PO 01/26/25 08:59 100 mg BID ACE Administration Ondansetron HCl 4 mg 12/26/24 22:26 Ondansetron Inj 2 Mg/Ml Inj 2 Ml IVP 01/25/25 22:25 On Hold: 12/27/24 04:39 Q6H PRN NAUSEA OR VOMITING Protocol Ondansetron HCl 4 mg 12/27/24 04:37 12/27/24 04:52 Ondansetron Odt 4 Mg Tabrap PO 01/26/25 04:36 4 mg Q6HR PRN Administration NAUSEA OR VOMITING Protocol Sennosides 1 tab 12/26/24 23:04 Senna/Docusate Sod 1 Tab Tablet PO 01/25/25 23:03 QDAY PRN CONSTIPATION Protocol Plan 84 y/o female with PMHx HTN, T2DM, ESRD (HD /Wed) with Dr. Brito, hyperlipidemia, HFpEF (LVEF 60-65%), HLD who presented to the ED on 12/20/24 with elevated BP >200/100s, asymptomatic. 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 Transferred back to [facility] for further management. #Hypertensive urgency vs emergency Patient initially came to the ED with HTN >200/100, left facial droop, slurred speech. NIHSS 1. MRI at [facility] showed no acute ischemic stroke, mass effect, midline shift. SBP 170s on just Labetalol 100 BID Plan: - labetalol 100 mg PO BID - Clonidine 0.1mg qDay - Losartan 100mg PO qDay #Hx pontine hemorrhage MRI w/o at [facility] showed no areas of diffusion restriction/no acute stroke, midline shift, or mass effect; showed chronic white matter changes, age-related atrophy with compensatory dilation of ventricles and sulci, small area of blooming artifact on right side of britany w/o concommitant signal abnormality, c/w old bleed. Plan: - CTM for focal neuro deficits - SCD for DVT ppx #Ground level fall #Presyncope? No reported preceding symptoms, not on blood thinners, patient does not remember what happened right before or after the fall. Hilary notes mention no LOC Plan: - TTE - Tylenol PRN for pain - CTM bruises on right lateral thigh and left arm #ESRD on dialysis Tu/Wed Follows with Dr. Brito BUN 21, Cr 2.9, eGFR 16 Plan: - Consulted Dr. Brito for dialysis - Renally dose medications - Avoid nephrotoxic agents. Avoid NSAIDs #HFpEF (LVEF 60-65%) - 2022 No s/sx fluid overload at this time Plan: - Lasix 40 mg PO daily (home med) - ECHO ordered #Type 2 diabetes mellitus, insulin-dependent A1c 7.4 insulin-dependent Plan: - SSI #Hyperlipidemia Trig 298, TChol 160, LDL 53 Plan: - Atorvastatin 20 mg PO daily (home med) #Left facial droop - resolved #Slurred speech - resolved Health Maintenance Dispo: Med/Tele Diet: Renal VTE ppx: SCD given hx pontine hemorrhage GI ppx: n/a Pain mgmt: Tylenol PRN Code status: FULL Case discussed with my attending Dr. Chery, and senior resident, Dr. Sofi Horn MD PGY-1 Attending Provider Attestation/Addendum I reviewed labs, imaging, EKG, home medications and prior available records. Face to face evaluation was performed by me. I have personally examined the patient and discussed assessment and plan with the IM team. I reviewed the resident note and agree with the plan with exceptions as below. Hypertensive encephalopathy Possible right britany hemorrhage, ruled out Syncope ESRD on hemodialysis Hypertensive emergency Insulin-dependent diabetes mellitus Continue losartan, clonidine, and labetalol Monitor BP Consulted nephrology for hemodialysis Ordered echocardiogram Consulted neurology PT evaluation
--- NOTE | 2024-12-27 09:24 | PC.NURSE ---
DR. Smith oked patient to use home otc vaporizing rub prn of lower back pain.
--- NOTE | 2024-12-27 09:37 | PC.SS ---
Follow up note: Pt is transfer back. Pt is established dialysis with Dr. Brito at [facility]. SS called Sonja at Dialysis who confirmed patient's dialysis chair time is Wednesday and Wednesday at 11:20 and family is aware patient's health insurance is inactive for transportation.
--- NOTE | 2024-12-27 11:48 | ESCONSULT_ITS ---
HPI Data of Consult Consult date: 12/27/24 Requesting Physician: Christopher Salcido MD Admitting Provider: Christopher Salcido MD Attending Provider: Christopher Salcido MD Primary Care Provider: Collin Herrera PA-C Consult Narrative Reason for consult: ESRD on hemodialysis History of present illness: 84-year-old female with a past medical history significant for HTN, T2DM, ESRD on dialysis (/Wed schedule with Dr. Brito), HFpEF (LVEF 60?65%), and HLD, who was initially admitted on 12/20/24 for hypertensive urgency with BP >200/100 mm Hg and transient left facial droop/slurred speech. She was evaluated at [facility] for possible intracranial hemorrhage, MRI showed an old right pontine bleed with no acute pathology and then transferred back to [facility] for ongoing management and rehab planning. Today, patient is stable and reports no complaints. No shortness of breath, chest pain, dizziness, nausea, or swelling. She denies cramping or pruritus. She is aware that dialysis is scheduled twice weekly (/Wed) and last session was Wednesday; next planned for Wednesday. 12/27/2024: Patient seen and examined at bedside. Feels well, denies any acute concerns. No dyspnea, chest pain, nausea, or leg swelling. No access issues or pain at catheter site. BP 160/83, HR 79 bpm. Labs: WBC 11.9, Hgb 10.7, Hct 33, Plt 210, Na 136, K 4.3, Cl 99, CO? 27, BUN 21, Cr 2.9, Glu 187, Ca 8.6, Mg 1.8, Phos 4.1, A1c 7.4. cc:: cc: Christopher Salcido MD Exam Vital Signs Temp Pulse Resp BP Pulse Ox O2 Del Method 97.2 F 78 18 138/74 H 98 Room Air 12/27/24 08:00 12/27/24 10:51 12/27/24 08:00 12/27/24 10:51 12/27/24 08:00 12/27/24 08:00 Narrative Exam General: Awake, alert, in no distress HEENT: No JVD, no oral ulcers, moist mucous membranes Cardiac: RRR, normal S1 S2, no murmurs Lungs: Clear to auscultation bilaterally, no rales/wheezes Abdomen: Soft, non-tender, no distension Extremities: No edema, no cyanosis Access: Dialysis catheter site clean, no erythema or drainage Neuro: Alert & oriented ? 3, no focal deficits Results Labs 12/28/24 04:49 12/28/24 04:49 Labs: Short CBC 12/26/24 12/27/24 Range/Units 22:30 04:56 WBC 12.6 H 11.9 H (3.6-11.0) Thou/mm3 Hgb 10.7 L D 10.7 L (12.0-16.0) g/dL Hct 33.1 L 33.1 L (36.0-46.0) % Plt Count 214 210 (140-440) Thou/mm3 BMP 12/26/24 12/27/24 22:30 04:56 Sodium 135 L 136 Potassium 3.9 4.3 Chloride 99 99 Carbon Dioxide 27.4 27.0 BUN 21 21 Creatinine 2.8 H 2.9 H Glucose 177 H 187 H Calcium 8.1 L 8.6 Quality Measures Quality Measures VTE prophylaxis Advance care planning discussed with:: patient Medications Home Medications and Allergies Home Medications ?Medication ?Instructions ?Recorded ?Confirmed ?Type atorvastatin 20 mg tablet 20 mg PO HS 03/11/22 5 History benzonatate 100 mg capsule 100 mg PO TID 03/11/2212/13 History losartan 100 mg tablet 100 mg PO DAILY for BP 04/2712/27/24 History sertraline 25 mg tablet 25 mg PO HS 04/28/24 5 History blood sugar diagnostic (True 12/27/24 12/27/24 Histor y Metrix Glucose Test Strip) labetalol 100 mg tablet 100 mg PO BID 12/27/2412/27 History pen needle, diabetic 32 gauge x 12/27/24 12/27/24 His tory (Jeanne 2nd Gen Pen Needle) Allergies Allergy/AdvReac Type Severity Reaction Status Date / Time amoxicillin Allergy Severe Vomiting Verified 12/20/24 09:59 codeine Allergy Severe PALPITATION Verified 12/20/24 09:59 S diazepam Allergy Severe RAPID Verified 12/20/24 09:59 HEARTRATE hydrocodone Allergy Severe Vomiting Verified 12/20/24 09:59 hydromorphone Allergy Severe Agitated Verified 12/20/24 09:59 ibuprofen Allergy Severe BLEEDING Verified 12/20/24 09:59 IN STOMACH PER PT meperidine Allergy Severe RAPID Verified 12/20/24 09:59 HEARTRATE morphine Allergy Severe RAPID Verified 12/20/24 09:59 HEARTRATE propoxyphene Allergy Severe RAPID Verified 12/20/24 09:59 HEARTRATE adhesive tape AdvReac Severe Hives Verified 12/20/24 09:59 levofloxacin AdvReac Severe VOMITS Verified 12/20/24 09:59 Visit Medications Acetaminophen (Acetaminophen 325 Mg Tablet) 650 mg PO Q6H PRN PRN Reason: Fever >100.3 Stop: 01/25/25 22:25 Acetaminophen (Acetaminophen 325 Mg Tablet) 650 mg PO Q6H PRN PRN Reason: PAIN SCALE 1-3 (mild Stop: 01/25/25 22:25 Atorvastatin Calcium (Atorvastatin Calcium 20 Mg Tablet) 20 mg PO HS [facility] Stop: 01/26/25 20:59 Clonidine (Clonidine Hcl 0.1 Mg Tablet) 0.1 mg PO BID [facility] Stop: 01/26/25 09:59 Last Admin: 12/27/24 10:51 Dose: Not Given Dextrose (Dextrose 50%-Water Inj 50 Ml Syringe) 25 ml IV Q15MIN PRN PRN Reason: BG 50-70 responsive npo pt Stop: 01/25/25 22:55 Dextrose (Dextrose 50%-Water Inj 50 Ml Syringe) 50 ml IV Q15MIN PRN PRN Reason: BG <50 OR BG <70 & pt unresponsive Stop: 01/25/25 22:55 Furosemide (Furosemide 40 Mg Tablet) 40 mg PO QDAY [facility] Stop: 01/26/25 08:59 Last Admin: 12/27/24 08:22 Dose: 40 mg Glucagon (Glucagon Inj 1 Mg Vial) 1 mg IM Q15MIN PRN PRN Reason: BG <70, and no IV access Insulin Human Lispro (Insulin Lispro (Admelog) 1 Unit/0.01 Ml Unit) 0 unit SC [facility]; Protocol Stop: 01/26/25 07:29 Last Admin: 12/27/24 11:34 Dose: 3 unit Labetalol HCl (Labetalol 100 Mg Tablet) 100 mg PO BID [facility] Stop: 01/26/25 08:59 Last Admin: 12/27/24 08:21 Dose: 100 mg Losartan Potassium (Losartan Potassium 25 Mg Tablet) 100 mg PO QDAY ACE Stop: 01/26/25 09:59 Last Admin: 12/27/24 10:51 Dose: Not Given Ondansetron HCl (Ondansetron Inj 2 Mg/Ml Inj 2 Ml) 4 mg IVP Q6H PRN; Protocol On Hold: 12/27/24 04:39 PRN Reason: NAUSEA OR VOMITING Stop: 01/25/25 22:25 Ondansetron HCl (Ondansetron Odt 4 Mg Tabrap) 4 mg PO Q6HR PRN; Protocol PRN Reason: NAUSEA OR VOMITING Stop: 01/26/25 04:36 Last Admin: 12/27/24 04:52 Dose: 4 mg Sennosides (Senna/Docusate Sod 1 Tab Tablet) 1 tab PO QDAY PRN; Protocol PRN Reason: CONSTIPATION Stop: 01/25/25 23:03 Assessment & Plan Plan 84-year-old female with ESRD on twice-weekly hemodialysis (/Wed, Dr. Brito) admitted for hypertensive urgency. Now clinically stable, euvolemic, and without uremic symptoms. # ESRD on hemodialysis Stable; no acute indication for emergent dialysis today. Plan: * Continue scheduled dialysis Wednesday (per T/ schedule). * Maintain renal diet. * Avoid nephrotoxins (NSAIDs, contrast). * Monitor I/Os, daily weights, electrolytes, and volume status. # Hypertension Mildly elevated this morning; patient asymptomatic. Plan: * Continue Labetalol 100 mg PO BID (home regimen). * Allow primary team to titrate for optimal control. * Avoid large fluid shifts during dialysis to prevent hypotension. # Anemia of CKD Hgb 10.7 acceptable range for ESRD Plan: * Continue to monitor H/H. * No EDUARDO needed at this time. Other current problems: #Hypertensive urgency vs emergency #Left facial droop -improved #Slurred speech - resolved #Hx pontine hemorrhage #B/L lower extremity weakness, paresthesias #Ground level fall #Presyncope? #HFpEF (LVEF 60-65%) #Type 2 diabetes mellitus #Hyperlipidemia Management per primary team ----- Plan discussed with attending physician Dr. Alisha Ann MD PGY-1 Internal Medicine Attending Provider Attestation/Addendum Patient seen and examined with resident physician Dr. Ann. Note reviewed, agree with findings and recommendations. Next dialysis scheduled for Wednesday.
--- NOTE | 2024-12-27 14:20 | PC.PT ---
Patient is safe to ambulate to the bathroom and in the halls with 1 staff and a FWW. RN made aware.
--- NOTE | 2024-12-27 15:13 | PC.CC ---
Addendum entered by Maira Johnson 12/28/24 09:03: PASRR LVL2 closed due to no SMI Original Note: PASRR Level 1 completed and downloaded. Pending Level 2 clearance.
--- NOTE | 2024-12-27 15:33 | PC.SS ---
SS has met with pt to discuss d/c options to home or SNF. Pt is aware Physician Residents and Dr. Brito are recommending SNF for short term rehab. Pt is agreeable to SNF and her choice is [facility]. SS has sent inquiry to the local SNF using [facility]. Jane, pharmacist has competed PASRR assement. Per bedside nurse, Shailesh pt is on Sertraline for depression.
--- NOTE | 2024-12-27 16:59 | PD.RESPRO ---
Documentation for date of: 12/27/24 Exam Vital Signs Temp Pulse Resp BP Pulse Ox O2 Del Method 97.7 F 66 18 176/83 H 96 Room Air 12/27/24 16:00 12/27/24 16:00 12/27/24 16:00 12/27/24 16:00 12/27/24 16:00 12/27/24 16:00 Objective Labs 12/27/24 04:56 12/27/24 04:56 Labs: Laboratory Results - last 24 hr 12/26/24 12/27/24 22:30 04:56 WBC 12.6 H 11.9 H RBC 3.86 L 3.85 L Hgb 10.7 L D 10.7 L Hct 33.1 L 33.1 L MCV 86 86 MCH 27.7 27.8 MCHC 32.3 32.3 RDW Std Deviation 48.1 H 47.9 H Plt Count 214 210 Neut % (Auto) 62 63 Lymph % (Auto) 27 25 [place] % (Auto) 6 7 Eos % (Auto) 3 3 Baso % (Auto) 1 1 Neut # (Auto) 7.9 H 7.4 Lymph # (Auto) 3.3 2.9 [place] # (Auto) 0.7 0.8 Eos # (Auto) 0.3 0.4 Baso # (Auto) 0.1 0.1 Immature Gran # (Auto) 0.26 H 0.23 H Absolute Nucleated RBC 0.00 0.00 Immature Gran % 2 H 2 H Nucleated RBC % 0 0 Sodium 135 L 136 Potassium 3.9 4.3 Chloride 99 99 Carbon Dioxide 27.4 27.0 Anion Gap 9 10 BUN 21 21 Creatinine 2.8 H 2.9 H Estim Creat Clear Calc Not Performed. Not Performed. eGFR 16 L 16 L BUN/Creatinine Ratio 8 L 7 L Glucose [address] Glu mg/dL 166 H Hemoglobin A1c 7.4 H Calculated Osmolality 277 279 Calcium 8.1 L 8.6 Phosphorus 4.1 Magnesium 1.8 Triglycerides 298 H Cholesterol 160 LDL Cholesterol, Calc 53 HDL Cholesterol 47 Cholesterol/HDL Ratio 3.4 L TSH 3.04 Quality Measures Quality Measures VTE prophylaxis Assessment & Plan Assessment Current Active Medications: Generic Name Dose Route Start Last Admin Trade Name Freq PRN Reason Stop Dose Admin Acetaminophen 650 mg 12/26/24 22:26 Acetaminophen 325 Mg Tablet PO 01/25/25 22:25 Q6H PRN Fever >100.3 Acetaminophen 650 mg 12/26/24 22:26 Acetaminophen 325 Mg Tablet PO 01/25/25 22:25 Q6H PRN PAIN SCALE 1-3 (mild Atorvastatin Calcium 20 mg 12/27/24 21:00 Atorvastatin Calcium 20 Mg Tablet PO 01/26/25 20:59 HS ACE Clonidine 0.1 mg 12/27/24 10:00 12/27/24 10:51 Clonidine Hcl 0.1 Mg Tablet PO 01/26/25 09:59 Not Given BID ACE Dextrose 25 ml 12/26/24 22:56 Dextrose 50%-Water Inj 50 Ml Syringe IV 01/25/25 22:55 Q15MIN PRN BG 50-70 responsive npo pt Dextrose 50 ml 12/26/24 22:56 Dextrose 50%-Water Inj 50 Ml Syringe IV 01/25/25 22:55 Q15MIN PRN BG <50 OR BG <70 & pt unresponsive Furosemide 40 mg 12/27/24 09:00 12/27/24 08:22 Furosemide 40 Mg Tablet PO 01/26/25 08:59 40 mg QDAY ACE Administration Glucagon 1 mg 12/26/24 22:56 Glucagon Inj 1 Mg Vial IM Q15MIN PRN BG <70, and no IV access Insulin Human Lispro 0 unit 12/27/24 07:30 12/27/24 11:34 Insulin Lispro (Admelog) 1 Unit/0.01 Ml Unit SC 01/26/25 07:29 3 unit AC ACE Administration Protocol Labetalol HCl 100 mg 12/27/24 09:00 12/27/24 08:21 Labetalol 100 Mg Tablet PO 01/26/25 08:59 100 mg BID ACE Administration Losartan Potassium 100 mg 12/27/24 10:00 12/27/24 10:51 Losartan Potassium 25 Mg Tablet PO 01/26/25 09:59 Not Given QDAY ACE Ondansetron HCl 4 mg 12/27/24 04:37 12/27/24 04:52 Ondansetron Odt 4 Mg Tabrap PO 01/26/25 04:36 4 mg Q6HR PRN Administration NAUSEA OR VOMITING Protocol Sennosides 1 tab 12/26/24 23:04 Senna/Docusate Sod 1 Tab Tablet PO 01/25/25 23:03 QDAY PRN CONSTIPATION Protocol
[2024-12-27] MEDS: LOSARTAN POTASSIUM 25 MG TABLET 100 MG PO (17:03)
--- NOTE | 2024-12-27 18:25 | ESPR_ITS ---
Documentation for date of: 12/27/24 Subjective Subjective Interval history: Patient examined at bedside. Blood pressure elevated 176/83, heart rate 66. A1c 7.4 triglycerides 298, cholesterol 160, LDL 53, HDL 47. Patient is alert and oriented x 3. Daughter was at bedside who did express concern for dementia. This was also brought up to the family while patient was at [facility]. The daughter stated that there are times where patient does not take medication including her antihypertensives. Has noticed that patient will spit out the medications and put them in her pocket. Recommended to daughter that patient have close follow-up with neurology after discharge for evaluation of dementia. Neurologic exam unremarkable, denies headache, blurry vision, nausea. Continue supportive management. Exam Vital Signs Temp Pulse Resp BP Pulse Ox O2 Del Method 97.7 F 66 18 176/83 H 96 Room Air 12/27/24 16:00 12/27/24 17:03 12/27/24 16:00 12/27/24 17:03 12/27/24 16:00 12/27/24 16:00 Narrative Exam General: Elderly female, No acute distress, appears comfortable HEENT: NCAT, No JVD noted. Mucosa moist. Pupils are equal and reactive to light bilaterally Cardiovascular: Normal S1 and S2. Regular rate and rhythm. Respiratory: Lungs are clear to auscultation bilaterally. No wheezing or crackles heard. Abdomen: Soft, nontender, not distended, normal bowel sounds. Skin: Warm to touch, dry, no rashes noted, right TDC in place, no bleeding Musculoskeletal: No gross injuries. Able to move all 4 extremities. No pitting edema. Neuro: Alert and oriented x3. No focal neuro deficits. Somewhat tangential thoughts Psych: normal affect. Objective Labs 12/28/24 04:49 12/28/24 04:49 Labs: Laboratory Results - last 24 hr 12/26/24 12/27/24 22:30 04:56 WBC 12.6 H 11.9 H RBC 3.86 L 3.85 L Hgb 10.7 L D 10.7 L Hct 33.1 L 33.1 L MCV 86 86 MCH 27.7 27.8 MCHC 32.3 32.3 RDW Std Deviation 48.1 H 47.9 H Plt Count 214 210 Neut % (Auto) 62 63 Lymph % (Auto) 27 25 [place] % (Auto) 6 7 Eos % (Auto) 3 3 Baso % (Auto) 1 1 Neut # (Auto) 7.9 H 7.4 Lymph # (Auto) 3.3 2.9 [place] # (Auto) 0.7 0.8 Eos # (Auto) 0.3 0.4 Baso # (Auto) 0.1 0.1 Immature Gran # (Auto) 0.26 H 0.23 H Absolute Nucleated RBC 0.00 0.00 Immature Gran % 2 H 2 H Nucleated RBC % 0 0 Sodium 135 L 136 Potassium 3.9 4.3 Chloride 99 99 Carbon Dioxide 27.4 27.0 Anion Gap 9 10 BUN 21 21 Creatinine 2.8 H 2.9 H Estim Creat Clear Calc Not Performed. Not Performed. eGFR 16 L 16 L BUN/Creatinine Ratio 8 L 7 L Glucose [address] Glu mg/dL 166 H Hemoglobin A1c 7.4 H Calculated Osmolality 277 279 Calcium 8.1 L 8.6 Phosphorus 4.1 Magnesium 1.8 Triglycerides 298 H Cholesterol 160 LDL Cholesterol, Calc 53 HDL Cholesterol 47 Cholesterol/HDL Ratio 3.4 L TSH 3.04 Quality Measures Quality Measures VTE prophylaxis Advance care planning discussed with:: patient Assessment & Plan Assessment Current Active Medications: Generic Name Dose Route Start Last Admin Trade Name Freq PRN Reason Stop Dose Admin Acetaminophen 650 mg 12/26/24 22:26 Acetaminophen 325 Mg Tablet PO 01/25/25 22:25 Q6H PRN Fever >100.3 Acetaminophen 650 mg 12/26/24 22:26 Acetaminophen 325 Mg Tablet PO 01/25/25 22:25 Q6H PRN PAIN SCALE 1-3 (mild Atorvastatin Calcium 20 mg 12/27/24 21:00 Atorvastatin Calcium 20 Mg Tablet PO 01/26/25 20:59 HS ACE Clonidine 0.1 mg 12/27/24 10:00 12/27/24 10:51 Clonidine Hcl 0.1 Mg Tablet PO 01/26/25 09:59 Not Given BID ACE Dextrose 25 ml 12/26/24 22:56 Dextrose 50%-Water Inj 50 Ml Syringe IV 01/25/25 22:55 Q15MIN PRN BG 50-70 responsive npo pt Dextrose 50 ml 12/26/24 22:56 Dextrose 50%-Water Inj 50 Ml Syringe IV 01/25/25 22:55 Q15MIN PRN BG <50 OR BG <70 & pt unresponsive Furosemide 40 mg 12/27/24 09:00 12/27/24 08:22 Furosemide 40 Mg Tablet PO 01/26/25 08:59 40 mg QDAY ACE Administration Glucagon 1 mg 12/26/24 22:56 Glucagon Inj 1 Mg Vial IM Q15MIN PRN BG <70, and no IV access Insulin Human Lispro 0 unit 12/27/24 07:30 12/27/24 17:04 Insulin Lispro (Admelog) 1 Unit/0.01 Ml Unit SC 01/26/25 07:29 2 unit AC ACE Administration Protocol Labetalol HCl 100 mg 12/27/24 09:00 12/27/24 08:21 Labetalol 100 Mg Tablet PO 01/26/25 08:59 100 mg BID ACE Administration Losartan Potassium 100 mg 12/27/24 10:00 12/27/24 10:51 Losartan Potassium 25 Mg Tablet PO 01/26/25 09:59 Not Given QDAY ACE Ondansetron HCl 4 mg 12/27/24 04:37 12/27/24 04:52 Ondansetron Odt 4 Mg Tabrap PO 01/26/25 04:36 4 mg Q6HR PRN Administration NAUSEA OR VOMITING Protocol Sennosides 1 tab 12/26/24 23:04 Senna/Docusate Sod 1 Tab Tablet PO 01/25/25 23:03 QDAY PRN CONSTIPATION Protocol Plan Ms. Saldivar is an 84 y/o female with PMHx HTN, T2DM, ESRD (dialysis T//Wed) with Dr. Brito, hyperlipidemia, HFpEF (LVEF 60-65%), HLD who presented to the ED on 12/20/24 with elevated BP >200/100s, asymptomatic. 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 No intervention done. Transferred back to [facility] for further management. #Ground level #Left facial droop - resolved #Slurred speech - resolved #Hypertensive urgency vs emergency # Hyperlipidemia Patient initially came to the ED with HTN >200/100, left facial droop, slurred speech. NIHSS 1. MRI at [facility] showed no acute ischemic stroke, mass effect, midline shift. NIHSS 1 MRI at [facility] showed no acute ischemic stroke, only chronic microvascular white matter changes No focal neuro deficits on exam A1c 7.4 triglycerides 298, cholesterol 160, LDL 53, HDL 47. -BP control - CTM for focal neuro deficits - continue with PT -astorvastatin 20mg daily #B/L lower extremity weakness, paresthesias #Ground level fall #ESRD on dialysis T//Wed #HFpEF (LVEF 60-65%) #Type 2 diabetes mellitus Primary care team to manage above conditions and ongoing care needs. The patient's management plan was discussed with my attending physician Dr. Christy. Tennille Bernal, PGY-2 Attending Provider Attestation/Addendum I personally have seen and examined the patient at the bedside and agreed with the resident's findings, assessment and plan of care. Workup form [facility] confirmed that there is no acute infarction or hge. Stable from neuro stand point for discharge tp rehab. Will follow as an outpatient in 2 weeks.
[2024-12-28] VITALS (9 sets, daily range): BP systolic 129–144; BP diastolic 64–81; PULSE 66–80; RESP 14–26; TEMP 36.1–37.1; O2SAT 97–100; BMI 30.4
[2024-12-28 05:39] LABS: Basophils # (Auto) 0.1 Thou/mm3 (0.0-0.2); Basophils % (Auto) 1 % (0-2.5); Eosinophils # (Auto) 0.3 Thou/mm3 (0.0-0.5); Eosinophils % (Auto) 3 % (0-10); Hematocrit 32.5 % (36.0-46.0); Hemoglobin 10.6 g/dL (12.0-16.0); Immature Granulocytes Auto 0.21 Thou/mm3 (0.00-0.00); Lymphocytes # (Auto) 2.6 Thou/mm3 (1.0-4.8); Lymphocytes % (Auto) 25 % (10-50); Mean Corpuscular HGB Conc 32.6 g/dl (31.0-37.0); Mean Corpuscular Hemoglobin 27.7 pg (25.0-35.0); Mean Corpuscular Volume 85 fL (80-100); Monocytes # (Auto) 0.7 Thou/mm3 (0.0-0.8); Monocytes % (Auto) 6 % (0-12); Neutrophils # (Auto) 6.8 Thou/mm3 (1.8-7.7); Neutrophils % (Auto) 64 % (37-80); Nucleated Red Blood Cell # 0.00 Thou/mm3 (0.00-0.00); Nucleated Red Blood Cell % 0 /100 WBC (0); Platelet Count 217 Thou/mm3 (140-440); RDW Standard Deviation 47.2 fL (36.4-46.3); Red Blood Count 3.83 Miln/mm3 (4.00-5.20); White Blood Count 10.7 Thou/mm3 (3.6-11.0)
[2024-12-28 05:55] LABS: Alanine Aminotransferase 10 U/L (10-49); Albumin, Serum 3.5 gm/dL (3.4-4.8); Albumin/Globulin Ratio 1.6 (1.2-2.2); Alkaline Phosphatase 124 U/L (46-116); Anion Gap 10 (7-16); Aspartate Amino Transferase 13 U/L (0-34); BUN/Creatinine Ratio 9 Ratio (12-20); Bilirubin,Total 0.2 mg/dL (0.3-1.2); Blood Urea Nitrogen 28 mg/dL (9-23); Calcium 8.8 mg/dL (8.3-10.6); Calcium (Corrected) 9.2 mg/dL (8.5-10.1); Carbon Dioxide 26.1 mMol/L (20.0-31.0); Chloride 100 mMol/L (98-107); Creatinine (Component) 3.1 mg/dL (0.6-1.3); Globulin 2.2 gm/dL (2.3-3.5); Glucose 227 mg/dL (74-106); Magnesium 1.9 mg/dL (1.6-2.6); Osmolality,Calculated 284 (275-295); Phosphorous 4.8 mg/dL (2.4-5.1); Potassium 4.3 mMol/L (3.4-5.1); Sodium 136 mMol/L (136-145); Total Protein 5.7 gm/dL (5.7-8.2); eGFR 14 See Note
[2024-12-28] MEDS: INSULIN LISPRO (AdmeLOG) 1 UNIT/0.01 ML UNIT SC ×2 (07:41→11:46)
[2024-12-28] MEDS: ACETAMINOPHEN 325 MG TABLET 650 MG PO (09:45)
[2024-12-28] MEDS: LABETALOL 100 MG TABLET PO (09:47)
--- NOTE | 2024-12-28 09:56 | ESDS_ITS ---
Planned Discharge Date 12/28/24 DS: Providers Provider Date of admission: 12/26/24 21:24 Primary care physician: Collin Herrera PA-C Admitting Provider: Christopher Salcido MD Attending Provider on Admission: Ashkan Chery MD Consults: 12/26/24 21:41 Referral Physical Therapy Routine Comment: Physician Instructions: Instructions: PT EVALUTION 12/26/24 22:56 Consult to Nephrology Routine Comment: ESRD, dialysis T//Sat Consulting Provider: Radhames Brito 12/27/24 07:25 Consult to Neurology / Tele-Neurology Routine Comment: Consulting Provider: Jd Christy 12/27/24 16:08 Referral Registered Dietitian Stat Comment: Attending Provider on DC: Jose Gibson DO Discharging Provider: Jose Gibson DO DS: Diagnosis Problem List Completed Was Problem List Reviewed/Reconciled?: Yes Hospital Course Hospital Course Hospital course: 84-year-old female with PMHx of HTN, T2DM, ESRD (on Wed/Wed dialysis), HLD, and HFpEF (LVEF 60-65%), who presented on 12/20/24 following a ground level fall at home, initially found to have a BP elevation (>200/100s) and subsequently developed transient left-sided weakness and slurred speech (NIHSS 1). Initial workup revealed a subtle 4 mm hyperdensity in the right britany on CT Head, concerning for a small hemorrhage. She was transferred to [facility] for neurosurgical evaluation where an MRI showed no evidence of acute stroke but confirmed a small blooming artifact in the right britany consistent with an old bleed. Upon return transfer, the patient's BP was stabilized on Labetalol 100mg BID, Losartan 100mg qday, and Clonidine 0.1mg BID . She worked with PT during her hospital stay and they recommended SNF for strength and conditioning before returning back home. Her blood glucose was elevated (BG >200), therefore her insulin regimen was adjusted to Tresiba 20u qDay and Novolog 4u pre-meals. Discharge instructions: - Continue extensive physical therapy at the long term facility at least twice a day - Please follow-up with neurology within 1 to 2 weeks of discharge - Please follow-up with your branch service representative within 2 weeks of discharge and continue going to dialysis sessions as scheduled - Please continue all home medications but stop taking loratadine and pentosan polysulfate capsule - Follow-up with your PCP within 1 week of discharge or follow-up at the [facility] [address] [place] [address] - If your symptoms worsen or you develop new chest pain, shortness of breath Admission diagnoses: #Hypertensive encephalopathy #Hx pontine hemorrhage #ESRD on HM Tue/Wed #HFpEF #Type 2 diabetes mellitus, insulin-dependent #Hyperlipidemia #Left facial droop - resolved #Slurred speech - resolved Case discussed with my attending Dr. Gibson, and senior resident, Dr. Sofi Horn MD PGY-1 Status at Discharge Overall status at discharge: patient is progressing back to baseline Time Spent with Patient Time attestation: Total time spent providing and/or coordinating discharge services: Time spent: Greater than 30 minutes Exam Vital Signs Temp Pulse Resp BP Pulse Ox O2 Del Method 97.0 F 76 18 144/65 H 100 Room Air 12/28/24 07:37 12/28/24 09:49 12/28/24 07:37 12/28/24 09:49 12/28/24 07:37 12/28/24 07:37 Narrative Exam General: No acute distress, well nourished Eye: PERRL, EOMI, normal conjunctiva, no scleral icterus HENT: Normocephalic, atraumatic, normal hearing, moist oral mucosa Neck: Supple, non-tender, no JVD, no lymphadenopathy Lungs: Clear to auscultation bilaterally, non-labored respirations, symmetric chest rise, no use of accessory muscles Heart: Normal S1 and S2, no S3 or S4 appreciated. Normal rate and regular rhythm, no murmurs, rubs gallops, or edema. Peripheral pulses intact bilaterally, capillary refill brisk distally Abdomen: Soft, non-tender, non-distended, normal bowel sounds. No guarding or rebound tenderness. Neuro: No focal neuro deficits. No facial droop. No parasthesias. Bilat upper and lower limbs strength 5/5. Moving all 4 limbs. Musculoskeletal: Normal range of motion and strength, no tenderness or swelling Skin: Skin is warm, dry. Several bruises on lateral right thigh, left arm Psychiatric: Cooperative, appropriate mood and affect Discharge Plan Plan Patient Disposition: Xfer Skilled Nsg Fac (SNF) Disposition Comment: [facility] Care Plan Goals: Continue extensive physical therapy at the long term facility at least twice a day Please follow-up with neurology within 1 to 2 weeks of discharge Please follow-up with your branch service representative within 2 weeks of discharge and continue going to dialysis sessions as scheduled Please continue all home medications but stop taking loratadine and pentosan polysulfate capsule Follow-up with your PCP within 1 week of discharge or follow-up at the [facility] [address] [place] [address] If your symptoms worsen or you develop new chest pain, shortness of breath Prescriptions/Referrals Prescriptions/Med Rec: Continued losartan 100 mg tablet 100 mg PO DAILY Patient Comments: TAKE 1 TABLET BY MOUTH EVERY DAY sertraline 25 mg tablet 25 mg PO HS Patient Comments: TAKE 1 TABLET BY MOUTH AT BEDTIME clonidine HCl 0.1 mg tablet 0.1 mg PO BID Qty: 60 0RF atorvastatin 20 mg tablet 20 mg PO HS benzonatate 100 mg capsule 100 mg PO TID Patient Comments: TAKE 1 CAPSULE BY MOUTH TWICE DAILY albuterol sulfate 90 mcg/actuation HFA aerosol inhaler 2 puff inhalation Q6H PRN (Reason: shortness of breath or wheezing) Qty: 8.5 0RF labetalol 100 mg tablet 100 mg PO BID Patient Comments: TAKE 1 TABLET BY MOUTH TWICE A DAY (DME) True Metrix Glucose Test Strip Strip Patient Comments: USE TO TEST BLOOD SUGAR THREE TIMES DAILY (DME) pen needle, diabetic [Jeanne 2nd Gen Pen Needle] 32 gauge x 5/32 needle Patient Comments: USE DIRECTED FOUR TIMES DAILY Changed insulin aspart U-100 [Novolog FlexPen U-100 Insulin] 100 unit/mL (3 mL) insulin pen 4 unit SUBCUT TIDWM 30 Days Qty: 15 0RF Patient Comments: INJECT 10 UNITS UNDER THE SKIN THREE TIMES DAILY WITH MEALS insulin degludec [Tresiba FlexTouch U-200] 200 unit/mL (3 mL) insulin pen 20 unit SUBCUT QDAY 30 Days Qty: 3 0RF Discontinued loratadine 10 mg tablet 10 mg PO QDAY Patient Comments: TAKE 1 TABLET BY MOUTH EVERY DAY pentosan polysulfate sodium 100 mg capsule 100 mg PO TID Qty: 90 3RF Referrals: Jd Christy MD [Physician, Neurology] Collin Herrera PA-C [Primary Care Provider] Radhames Brito MD [Physician, Nephrology] Patient/Caregiver Discharge Instructions Print Language: Qatari Stand Alone Forms: Grace Award Info., Patient Portal Info Letter Discharge Order Discharge Orders: Discharge (Routine); Ordered 12/28/24 Ordered By: Shaun Horn Quality Discharge Quality Measures VTE prophylaxis MD Attestestation MD Attestation I have discussed and was present for the essential components of the discharge history, physical examination, diagnosis, and discharge treatment plan with the resident. I agree with the patient's discharge care as documented by the resident and amended herein by me. Fabio Gibson DO. The patient understood all discharge instructions, all questions were answered satisfactorily. The patient was instructed to return to the Emergency Department is symptoms worsened or persisted. Of note we we have reduced the patient's insulin for now, she was requiring less than her home dose insulin hence we made her degludec 20 units nightly and short acting lispro 4 units 3 times daily AC. This may need to be uptitrated when she is back in her facility. Patient was stable, afebrile, tolerating p.o. intake at time of discharge to SNF. Although this document has been carefully reviewed, there may still be some phonetic and other typographical errors. These errors are purely grammatical due to imperfections in the software program and should not be construed in any way to compromise the substance of the patient's medical care during this visit. Time Spent on discharge: 35 minutes
--- NOTE | 2024-12-28 10:09 | ESPR_ITS ---
Documentation for date of: 12/28/24 Subjective Subjective Interval history: Reason for consult: ESRD on hemodialysis History of present illness: 84-year-old female with a past medical history significant for HTN, T2DM, ESRD on dialysis (/Wed schedule with Dr. Brito), HFpEF (LVEF 60?65%), and HLD, who was initially admitted on 12/20/24 for hypertensive urgency with BP >200/100 mm Hg and transient left facial droop/slurred speech. She was evaluated at [facility] for possible intracranial hemorrhage, MRI showed an old right pontine bleed with no acute pathology and then transferred back to [facility] for ongoing management and rehab planning. Today, patient is stable and reports no complaints. No shortness of breath, chest pain, dizziness, nausea, or swelling. She denies cramping or pruritus. She is aware that dialysis is scheduled twice weekly (/Wed) and last session was Wednesday; next planned for Wednesday. 12/27/2024: Patient seen and examined at bedside. Feels well, denies any acute concerns. No dyspnea, chest pain, nausea, or leg swelling. No access issues or pain at catheter site. BP 160/83, HR 79 bpm. Labs: WBC 11.9, Hgb 10.7, Hct 33, Plt 210, Na 136, K 4.3, Cl 99, CO? 27, BUN 21, Cr 2.9, Glu 187, Ca 8.6, Mg 1.8, Phos 4.1, A1c 7.4. 12/28/2024: Patient seen and examined today. She is doing well and has no complaints. Denies chest pain, shortness of breath, dizziness, nausea, or swelling. Awaiting transfer to SNF. Vitals: BP 136/73, HR 80 bpm. Labs: WBC 10.7, Plt 217, Hgb 10.6, Hct 32.5, Na 136, K 4.3, Cl 100, CO2 26, BUN 28, Cr 3.1, Glu 227, Ca 9.2, Mg 1.9, Phos 4.8. Exam Vital Signs Temp Pulse Resp BP Pulse Ox O2 Del Method 97.0 F 76 18 144/65 H 100 Room Air 12/28/24 07:37 12/28/24 09:56 12/28/24 07:37 12/28/24 09:56 12/28/24 07:37 12/28/24 07:37 Narrative Exam General: Awake, alert, in no distress HEENT: No JVD, no oral ulcers, moist mucous membranes Cardiac: RRR, normal S1 S2, no murmurs Lungs: Clear to auscultation bilaterally, no rales/wheezes Abdomen: Soft, non-tender, no distension Extremities: No edema, no cyanosis Access: Dialysis catheter site clean, no erythema or drainage Neuro: Alert & oriented ? 3, no focal deficits Objective Labs 12/28/24 04:49 12/28/24 04:49 Labs: Laboratory Results - last 24 hr 12/28/24 04:49 WBC 10.7 RBC 3.83 L Hgb 10.6 L Hct 32.5 L MCV 85 MCH 27.7 MCHC 32.6 RDW Std Deviation 47.2 H Plt Count 217 Neut % (Auto) 64 Lymph % (Auto) 25 [place] % (Auto) 6 Eos % (Auto) 3 Baso % (Auto) 1 Neut # (Auto) 6.8 Lymph # (Auto) 2.6 [place] # (Auto) 0.7 Eos # (Auto) 0.3 Baso # (Auto) 0.1 Immature Gran # (Auto) 0.21 H Absolute Nucleated RBC 0.00 Immature Gran % 2 H Nucleated RBC % 0 Sodium 136 Potassium 4.3 Chloride 100 Carbon Dioxide 26.1 Anion Gap 10 BUN 28 H Creatinine 3.1 H Estim Creat Clear Calc Not Performed. eGFR 14 L* BUN/Creatinine Ratio 9 L Glucose 227 H Calculated Osmolality 284 Calcium 8.8 Corrected Calcium 9.2 Phosphorus 4.8 Magnesium 1.9 Total Bilirubin 0.2 L AST 13 ALT 10 Alkaline Phosphatase 124 H Total Protein 5.7 Albumin 3.5 Globulin 2.2 L Albumin/Globulin Ratio 1.6 Quality Measures Quality Measures VTE prophylaxis Advance care planning discussed with:: patient Assessment & Plan Assessment Current Active Medications: Generic Name Dose Route Start Last Admin Trade Name Freq PRN Reason Stop Dose Admin Acetaminophen 650 mg 12/26/24 22:26 Acetaminophen 325 Mg Tablet PO 01/25/25 22:25 Q6H PRN Fever >100.3 Acetaminophen 650 mg 12/26/24 22:26 12/28/24 09:45 Acetaminophen 325 Mg Tablet PO 01/25/25 22:25 650 mg Q6H PRN Administration PAIN SCALE 1-3 (mild Atorvastatin Calcium 20 mg 12/27/24 21:00 12/27/24 23:03 Atorvastatin Calcium 20 Mg Tablet PO 01/26/25 20:59 Not Given HS ACE Clonidine 0.1 mg 12/27/24 10:00 12/28/24 09:49 Clonidine Hcl 0.1 Mg Tablet PO 01/26/25 09:59 Not Given BID ACE Dextrose 25 ml 12/26/24 22:56 Dextrose 50%-Water Inj 50 Ml Syringe IV 01/25/25 22:55 Q15MIN PRN BG 50-70 responsive npo pt Dextrose 50 ml 12/26/24 22:56 Dextrose 50%-Water Inj 50 Ml Syringe IV 01/25/25 22:55 Q15MIN PRN BG <50 OR BG <70 & pt unresponsive Furosemide 40 mg 12/27/24 09:00 12/28/24 09:46 Furosemide 40 Mg Tablet PO 01/26/25 08:59 40 mg QDAY ACE Administration Glucagon 1 mg 12/26/24 22:56 Glucagon Inj 1 Mg Vial IM Q15MIN PRN BG <70, and no IV access Insulin Human Lispro 0 unit 12/27/24 07:30 12/28/24 07:41 Insulin Lispro (Admelog) 1 Unit/0.01 Ml Unit SC 01/26/25 07:29 2 unit AC ACE Administration Protocol Labetalol HCl 100 mg 12/27/24 09:00 12/28/24 09:47 Labetalol 100 Mg Tablet PO 01/26/25 08:59 100 mg BID ACE Administration Losartan Potassium 100 mg 12/27/24 10:00 12/28/24 09:56 Losartan Potassium 25 Mg Tablet PO 01/26/25 09:59 Not Given QDAY ACE Ondansetron HCl 4 mg 12/27/24 04:37 12/27/24 04:52 Ondansetron Odt 4 Mg Tabrap PO 01/26/25 04:36 4 mg Q6HR PRN Administration NAUSEA OR VOMITING Protocol Sennosides 1 tab 12/26/24 23:04 Senna/Docusate Sod 1 Tab Tablet PO 01/25/25 23:03 QDAY PRN CONSTIPATION Protocol Plan 84-year-old female with ESRD on twice-weekly hemodialysis (/Wed) under Dr. Brito, currently stable and asymptomatic. Awaiting SNF placement. # ESRD on hemodialysis Stable; no acute indication for emergent dialysis today. Plan: * Continue scheduled dialysis Wednesday (per T/ schedule). * If patient not discharged by tomorrow afternoon, will resume inpatient dialysis Wednesday morning. * Maintain renal diet. * Avoid nephrotoxins (NSAIDs, contrast). * Monitor I/Os, daily weights, electrolytes, and volume status. # Hypertension Mildly elevated this morning; patient asymptomatic. Plan: * Continue Labetalol 100 mg PO BID (home regimen). * Allow primary team to titrate for optimal control. # Anemia of CKD Hgb 10.6 acceptable range for ESRD Plan: * Continue to monitor H/H. * No EDUARDO needed at this time. Other current problems: #Hypertensive urgency vs emergency #Left facial droop -improved #Slurred speech - resolved #Hx pontine hemorrhage #B/L lower extremity weakness, paresthesias #Ground level fall #Presyncope? #HFpEF (LVEF 60-65%) #Type 2 diabetes mellitus #Hyperlipidemia Management per primary team ----- Plan discussed with attending physician Dr. Alisha Ann MD PGY-1 Internal Medicine Attending Provider Attestation/Addendum Patient seen and examined with resident physician Dr. Ann. Note reviewed, agree with findings and recommendations. Next dialysis scheduled for tomorrow
--- NOTE | 2024-12-28 11:36 | PC.SS ---
Addendum entered by Maira Johnson 12/28/24 12:04: ETA set for 1400 RN, Chayito made aware Original Note: SS met with pt to confirm SNF choice. Pt wants [facility] as [facility] has no beds available. [facility] updated. Transport setup via [employer] #[id number] Pending release. PCS and FS sent to [facility] pending response
[2024-12-28] MEDS: INSULIN DEGLUDEC 5 UNIT/0.05 ML (PER 5 UNITS) 25 UNIT SC (11:45)
[2024-12-28] MEDS: INSULIN LISPRO (AdmeLOG) 1 UNIT/0.01 ML UNIT 4 UNIT SC (11:48)
--- NOTE | 2024-12-28 13:27 | PC.NURSE ---
Spoke with nurse Childers from [facility] at 1328 to give report regarding patient. Last set of VS are as follows: BP 125/72, HR 73, O2 97%.
== END 2024-12-28 14:20 | disposition skilled nursing facility (03) | DRG 70 ==
PROVIDERS: Admitting Provider Internal Medicine; PCP Physician Assistant; Visit Provider Student in an Organized Health Care Education/Training Program
DX: I67.4 Hypertensive encephalopathy (principal); N18.6 End stage renal disease; I13.2 Hypertensive heart and chronic kidney disease with heart failure and with stage 5 chronic kidney disease, or end stage renal disease; I50.32 Chronic diastolic (congestive) heart failure; I16.1 Hypertensive emergency; E11.22 Type 2 diabetes mellitus with diabetic chronic kidney disease; E78.5 Hyperlipidemia, unspecified; D63.1 Anemia in chronic kidney disease; E11.65 Type 2 diabetes mellitus with hyperglycemia; R29.810 Facial weakness; W18.30XA Fall on same level, unspecified, initial encounter; Y92.009 Unspecified place in unspecified non-institutional (private) residence as the place of occurrence of the external cause; Z53.20 Procedure and treatment not carried out because of patient's decision for unspecified reasons; N30.20 Other chronic cystitis without hematuria; R47.81 Slurred speech; Z75.1 Person awaiting admission to adequate facility elsewhere; Z79.899 Other long term (current) drug therapy; Z79.4 Long term (current) use of insulin; Z99.2 Dependence on renal dialysis; Z88.5 Allergy status to narcotic agent; Z88.6 Allergy status to analgesic agent; Z88.1 Allergy status to other antibiotic agents; Z88.8 Allergy status to other drugs, medicaments and biological substances; Z88.0 Allergy status to penicillin; Z86.73 Personal history of transient ischemic attack (TIA), and cerebral infarction without residual deficits
CPT/HCPCS: 36415; 80048; 80053; 80061; 83036; 83735; 84100; 84443; 85025; 97162; J1815; Q0162; A9270

== ENCOUNTER 2025-02-02 11:49 | Emergency (ER) | payer MEDICARE, MEDICAID, SELFPAY ==
[2025-02-02 11:50] VITALS: BP 186/92; PULSE 82; RESP 18; TEMP 36.7; O2SAT 95
[2025-02-02 11:57] VITALS: BMI 31.1
--- NOTE | 2025-02-02 12:14 | EKG_ITS ---
[facility] Test Date: 2025-02-02 Pat Name: TYREE NOLASCO Department: Room: - Gender: Female [place]: : 1940 Requested By: Quinten Vyas Order Number: [id number] Reading MD: Quinten Vyas Measurements Intervals Patrick Rate: 75 P: 39 [place]: 185 QRS: 30 QRSD: 96 T: 64 QT: 400 QTc: 448 Interpretive Statements SINUS RHYTHM NONSPECIFIC T-WAVE ABNORMALITY Compared to ECG 12/20/2024 23:17:44 Incomplete right bundle-branch block no longer present T-wave abnormality still present /store/S0/[id number].pdf
--- NOTE | 2025-02-02 12:14 | XR_ITS ---
EXAMINATION: AP chest single view TECHNIQUE: AP portable upright chest single view Date and time: February 02, 2025, 1224 hours, comparison December 20, 2024 INDICATIONS: Chest pain coughing 1 week. FINDINGS: Normal heart size Mild prominence pulmonary vasculature. No lobar pneumonia or lupe pulmonary edema Right internal jugular dialysis catheter tip SVC IMPRESSION: Mild prominence pulmonary vasculature
--- NOTE | 2025-02-02 12:18 | PD.EDSOB ---
ED SOB =RME/HPI General Chief Complaint: Shortness of Breath/Dyspnea Stated Complaint: SOB Time Seen by Provider: 02/02/25 12:14 Arrival date/time: 02/02/25 11:49 84-year-old female patient with significant history of hypertension diabetes mellitus, end-stage renal disease on hemodialysis, was sent to us from dialysis center for shortness of breath and coughing. Patient was on dialysis, ongoing for the last 10 minutes, patient suddenly developed coughing, with shortness of breath, drink some water and was coughing more, he had stopped dialysis. Patient was sent to us for further evaluation. On my initial evaluation patient told me that her coughing is almost gone and she feels better. Related Data Home Medications ?Medication ?Instructions ?Recorded ?Confirmed atorvastatin 20 mg tablet 20 mg PO HS 03/11/22 12/27/24 benzonatate 100 mg capsule 100 mg PO TID 03/11/22 12/27/24 losartan 100 mg tablet 100 mg PO DAILY for BP 04/27/24 12/27/24 sertraline 25 mg tablet 25 mg PO HS 04/28/24 12/27/24 blood sugar diagnostic (True 12/27/24 12/27/24 Metrix Glucose Test Strip) labetalol 100 mg tablet 100 mg PO BID 12/27/24 12/27/24 pen needle, diabetic 32 gauge x 12/27/24 12/27/24 (Jeanne 2nd Gen Pen Needle) Previous Rx's ?Medication ?Instructions ?Recorded albuterol sulfate 90 mcg/actuation 2 puff inhalation Q6H PRN 10/19/24 aerosol inhaler shortness of breath or wheezing #8.5 grams clonidine HCl 0.1 mg tablet 0.1 mg PO BID #60 tabs 11/02/24 insulin aspart U-100 100 unit/mL 4 unit (0.04 mL) subcut TIDWM 1 12/28/24 (3 mL) subcutaneous pen (Novolog month #15 mL FlexPen U-100 Insulin aspart) insulin degludec 200 unit/mL (3 20 unit (0.1 mL) subcut QDAY 1 12/28/24 mL) subcutaneous pen (Tresiba month #3 mL FlexTouch U-200 insulin) alprazolam 0.25 mg tablet (Xanax) 0.25 mg PO QDAY PRN anxiety #10 02/02/25 tabs Allergies Allergy/AdvReac Type Severity Reaction Status Date / Time amoxicillin Allergy Severe Vomiting Verified 02/02/25 12:06 codeine Allergy Severe PALPITATION Verified 02/02/25 12:06 S diazepam Allergy Severe RAPID Verified 02/02/25 12:06 HEARTRATE hydrocodone Allergy Severe Vomiting Verified 02/02/25 12:06 hydromorphone Allergy Severe Agitated Verified 02/02/25 12:06 ibuprofen Allergy Severe BLEEDING Verified 02/02/25 12:06 IN STOMACH PER PT meperidine Allergy Severe RAPID Verified 02/02/25 12:06 HEARTRATE morphine Allergy Severe RAPID Verified 02/02/25 12:06 HEARTRATE propoxyphene Allergy Severe RAPID Verified 02/02/25 12:06 HEARTRATE adhesive tape AdvReac Severe Hives Verified 02/02/25 12:06 levofloxacin AdvReac Severe VOMITS Verified 02/02/25 12:06 Review of Systems Review of Systems Narrative Review of Systems: Review of system reviewed and within normal limits except mentioned in HPI ED Exam Narrative Physical exam: VITAL SIGNS: Reviewed. GENERAL APPEARANCE: Alert and interactive, follows commands, no acute distress, HEAD AND FACE: Non-traumatic. ENT: PERRL, pink conjunctivitis, eyelid no trauma, Mucous membrane moist. NECK: Supple, nontender, no nuchal rigidity. CHEST: No tenderness, no crepitus, no paradoxical movement, no retractions. Right chest wall dialysis catheter intact with dressing LUNGS: Clear, well ventilated, symmetric, no rales, no wheezing, no ronchi, no stridor, good breath sounds bilaterally. HEART: Regular rate, regular rhythm, no murmur, no gallops. ABDOMEN: Soft, positive bowel sounds, nondistended, no guarding, nontender, no rebound, no masses, RECTAL: Deferred. GENITAL: Deferred. NEUROLOGICAL: Gross motor function intact sensory function intact, Appropriate for age. MUSCULOSKELETAL: low back nontender, full range of motion. EXTREMITIES: Nontender, full range of motion. SKIN: Color pink, dry, no rash, no lacerations, no abrasions, no contusions. LYMPHATICS: Deferred. Course Quality Measures none Orders Category Date Time Status EKG (ED ONLY) *Do not use* NOW Care 02/02/25 12:14 Completed EKG (ED Only) Stat Exams 02/02/25 12:14 Draft XR chest 1V Stat Exams 02/02/25 12:14 Completed B-Type Natriuretic Peptide Stat Lab 02/02/25 12:37 Completed CBC Stat Lab 02/02/25 12:37 Completed Comprehensive Metabolic Panel Stat Lab 02/02/25 12:37 Completed Partial Thromboplastin Time Stat Lab 02/02/25 12:37 Completed Troponin I Stat Lab 02/02/25 12:37 Completed Vital Signs Vital signs: Vital Signs Temperature 98.0 F 02/02/25 11:50 Pulse Rate 82 02/02/25 11:50 Respiratory Rate 18 02/02/25 11:50 Blood Pressure 186/92 H 02/02/25 11:50 Pulse Oximetry (%) 95 02/02/25 11:50 Oxygen Delivery Method Room Air 02/02/25 11:50 Shortness of Breath / Dyspnea MDM Narrative MDM Narrative:: 84-year-old female patient with significant history of hypertension diabetes mellitus, end-stage renal disease on hemodialysis, was sent to us from dialysis center for shortness of breath and coughing. Patient was on dialysis, ongoing for the last 10 minutes, patient suddenly developed coughing, with shortness of breath, drink some water and was coughing more, he had stopped dialysis. Patient was sent to us for further evaluation. On my initial evaluation patient told me that her coughing is almost gone and she feels better. EKG as interpreted by me showed sinus rhythm, ventricular to 75 bpm, no ST segment elevation or depression noted Patient chest x-ray showed no pneumonia infiltrates except for mild vascular congestion patient is a blood workup significant for elevated creatinine potassium is normal Prior to discharge patient was noted to be no complaints satting 95% on room air I consulted Dr. Brito, patient's university librarian, who recommends dialysis today or tomorrow patient is to contact the dialysis center. Patient wants dialysis done tomorrow. Patient data External records reviewed:: None Clinical information provided by:: patient Social determinants that could affect healthcare access:: none Patient has the following chronic illnesses:: Hypertension diabetes ESRD How is presenting disease/condition affected by chronic disease/condition?: exacerbated by Evaluation data The following diagnostics were reviewed and interpreted by me:: lab results, radiology exam(s) and EKG tracing(s) Lab and/or radiology exams considered but not ordered:: None Interpretation Summary: See above Medications / Prescriptions Medications or Prescriptions considered but not ordered:: None Medication administrations:: None Consultations Consultation(s) initiated? (list below): No Diagnosis Shortness of Breath Differential Diagnosis: congestive heart failure, community acquired pneumonia and asthma with exacerbation Most likely diagnosis given after review of the tests above:: Anxiety, shortness of breath, ESRD Admission Indicated Admission indicated?: not indicated Admission Request Was there a request for admission?: No Disposition Plan Disposition Plan: Discharge Discharge Attestation Discharge Attestation: The patient was given an opportunity to ask questions and understood the discharge instructions. Discharge instructions specifically effects, indications for sooner follow up or return to the emergency department, and the expected course of current diagnosis. Patient condition: Stable Discharge Plan Plan Patient Disposition: HOME (Self Care) Discharge Disposition comment: Stable Prescriptions/Referrals Prescriptions/Med Rec: New alprazolam [Xanax] 0.25 mg tablet 0.25 mg PO QDAY PRN (Reason: anxiety) Qty: 10 0RF Rx Instructions: Take 1 tablet 30 minutes prior to dialysis No Action losartan 100 mg tablet 100 mg PO DAILY Patient Comments: TAKE 1 TABLET BY MOUTH EVERY DAY sertraline 25 mg tablet 25 mg PO HS Patient Comments: TAKE 1 TABLET BY MOUTH AT BEDTIME clonidine HCl 0.1 mg tablet 0.1 mg PO BID Qty: 60 0RF atorvastatin 20 mg tablet 20 mg PO HS benzonatate 100 mg capsule 100 mg PO TID Patient Comments: TAKE 1 CAPSULE BY MOUTH TWICE DAILY albuterol sulfate 90 mcg/actuation HFA aerosol inhaler 2 puff inhalation Q6H PRN (Reason: shortness of breath or wheezing) Qty: 8.5 0RF labetalol 100 mg tablet 100 mg PO BID Patient Comments: TAKE 1 TABLET BY MOUTH TWICE A DAY (DME) True Metrix Glucose Test Strip Strip Patient Comments: USE TO TEST BLOOD SUGAR THREE TIMES DAILY (DME) pen needle, diabetic [Jeanne 2nd Gen Pen Needle] 32 gauge x 5/32 needle Patient Comments: USE DIRECTED FOUR TIMES DAILY insulin aspart U-100 [Novolog FlexPen U-100 Insulin] 100 unit/mL (3 mL) insulin pen 4 unit SUBCUT TIDWM 30 Days Qty: 15 0RF Patient Comments: INJECT 10 UNITS UNDER THE SKIN THREE TIMES DAILY WITH MEALS insulin degludec [Tresiba FlexTouch U-200] 200 unit/mL (3 mL) insulin pen 20 unit SUBCUT QDAY 30 Days Qty: 3 0RF Problem List Clinical Impression: Shortness of breath, Anxiety, ESRD on dialysis Patient/Caregiver Discharge Instructions Discharge Activity: activity as tolerated Education Materials: ED Anxiety Reaction Additional Instructions: Thank you for the opportunity for serving you today. You are stable for discharged . You are advised to: Follow-up with your PCP in 1 to 2 days Return to ED for worsening of symptoms Please call dialysis center today and schedule for dialysis tomorrow per recommendation by your university librarian Dr. Brito Print Language: Vietnamese Stand Alone Forms: Grace Award Info., Patient Portal Info Letter PA/[employer]YGEN THER[employer] TEACHER Supervising Physician PA/ESTRELLITA Supervising Physician: MD Kurt
[2025-02-02 12:52] LABS: Basophils # (Auto) 0.1 Thou/mm3 (0.0-0.2); Basophils % (Auto) 1 % (0-2.5); Eosinophils # (Auto) 0.3 Thou/mm3 (0.0-0.5); Eosinophils % (Auto) 3 % (0-10); Hematocrit 28.3 % (36.0-46.0); Hemoglobin 9.2 g/dL (12.0-16.0); Immature Granulocytes Auto 0.15 Thou/mm3 (0.00-0.00); Lymphocytes # (Auto) 2.5 Thou/mm3 (1.0-4.8); Lymphocytes % (Auto) 24 % (10-50); Mean Corpuscular HGB Conc 32.5 g/dl (31.0-37.0); Mean Corpuscular Hemoglobin 28.2 pg (25.0-35.0); Mean Corpuscular Volume 87 fL (80-100); Monocytes # (Auto) 0.6 Thou/mm3 (0.0-0.8); Monocytes % (Auto) 6 % (0-12); Neutrophils # (Auto) 6.8 Thou/mm3 (1.8-7.7); Neutrophils % (Auto) 65 % (37-80); Nucleated Red Blood Cell # 0.00 Thou/mm3 (0.00-0.00); Nucleated Red Blood Cell % 0 /100 WBC (0); Platelet Count 237 Thou/mm3 (140-440); RDW Standard Deviation 53.8 fL (36.4-46.3); Red Blood Count 3.26 Miln/mm3 (4.00-5.20); White Blood Count 10.4 Thou/mm3 (3.6-11.0)
[2025-02-02 13:10] LABS: B-Type Natriuretic Peptide 140 pg/mL (0-100)
[2025-02-02 13:14] LABS: Alanine Aminotransferase 20 U/L (10-49); Albumin, Serum 4.1 gm/dL (3.4-4.8); Albumin/Globulin Ratio 2.0 (1.2-2.2); Alkaline Phosphatase 210 U/L (46-116); Anion Gap 7 (7-16); Aspartate Amino Transferase 17 U/L (0-34); BUN/Creatinine Ratio 12 Ratio (12-20); Bilirubin,Total < 0.2 mg/dL (0.3-1.2); Blood Urea Nitrogen 41 mg/dL (9-23); Calcium 8.7 mg/dL (8.3-10.6); Calcium (Corrected) 8.7 mg/dL (8.5-10.1); Carbon Dioxide 27.9 mMol/L (20.0-31.0); Chloride 102 mMol/L (98-107); Creatinine (Component) 3.4 mg/dL (0.6-1.3); Estimated Creatinine Clearance 11.8 mL/min (>60); Globulin 2.1 gm/dL (2.3-3.5); Glucose 109 mg/dL (74-106); Osmolality,Calculated 284 (275-295); Potassium 4.8 mMol/L (3.4-5.1); Sodium 137 mMol/L (136-145); Total Protein 6.2 gm/dL (5.7-8.2); Troponin I < 0.020 ng/mL (0.0-0.045); eGFR 13 See Note
[2025-02-02 13:31] LABS: Partial Thromboplastin Time 40.1 Seconds (22.0-36.0)
[2025-02-02 15:14] VITALS: BP 174/95; PULSE 86; RESP 16; TEMP 37; O2SAT 99
== END 2025-02-02 15:15 | disposition home or self-care (01) ==
PROVIDERS: Nurse Practitioner Family; Emergency Provider Family Medicine
DX: F41.9 Anxiety disorder, unspecified (principal); E11.22 Type 2 diabetes mellitus with diabetic chronic kidney disease; I12.0 Hypertensive chronic kidney disease with stage 5 chronic kidney disease or end stage renal disease; N18.6 End stage renal disease; Z99.2 Dependence on renal dialysis
CPT/HCPCS: 36415; 71045; 80053; 83880; 84484; 85025; 85730; 93005; 99283

== ENCOUNTER 2025-03-05 13:43 | Emergency (ER) | payer MEDICARE, MEDICAID, SELFPAY ==
--- NOTE | 2025-03-05 14:22 | EKG_ITS ---
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
--- NOTE | 2025-03-05 14:22 | EDRME_ITS ---
Rapid Medical Screening Exam [facility] Arrival date/time: 03/05/25 13:43 84-year-old female with a history of hyperlipidemia, type 2 diabetes, end-stage renal disease on dialysis Wednesday, presents to the emergency room with a chief complaint of 5 out of 10 right sided sternal chest pain that began today during her dialysis treatment 1 hour ago. I have greeted and performed a focused initial assessment of this patient. A comprehensive ED assessment and evaluation of the patient, analysis of all test results, and completion of the medical decision making process will be conducted by additional ED providers. Chief Complaint: Chest Pain Vital signs reviewed by provider: Yes Exam: Patient is complaining of 5 out of 10 sternal chest pain. Patient has a strong and regular rhythm. Clear bilateral lung sounds Clinical Impression: STEMI/NSTEMI/
--- NOTE | 2025-03-05 14:22 | XR_ITS ---
Upright AP chest film on 03/05/2025 at 2:25 p.m. Comparison study 02/02/2025 INDICATION: Weakness, left-sided chest pain radiating to the left hand There is significant cardiomegaly, I believe that the heart size has increased slightly since the previous chest film There is a dual-lumen central venous catheter in good position on the right. Both lungs and pleural space are clear normal. Mildly prominent degenerative osteophyte formation surrounds virtually all of the disc spaces in the dorsal spine. There is possible abnormal narrowing of the rotator space between the acromion process and head of the humerus on the left shoulder which raises the possibility of rotator cuff pathology. 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 IMPRESSION: 1. Prominent cardiomegaly, which has increased slightly since the last chest film 2 lungs are clear no pleural fluid is seen. No evidence of CHF 3. There are subtle findings in the left shoulder which at least raise the possibility of rotator cuff pathology. MRI of the left shoulder is definitely recommended
[2025-03-05 14:23] VITALS: BP 156/79; PULSE 80; RESP 20; TEMP 36.9; O2SAT 98; BMI 31.1
[2025-03-05 14:59] LABS: Basophils # (Auto) 0.0 Thou/mm3 (0.0-0.2); Basophils % (Auto) 0 % (0-2.5); Eosinophils # (Auto) 0.2 Thou/mm3 (0.0-0.5); Eosinophils % (Auto) 2 % (0-10); Hematocrit 26.9 % (36.0-46.0); Immature Granulocytes Auto 0.09 Thou/mm3 (0.00-0.00); Lymphocytes # (Auto) 1.4 Thou/mm3 (1.0-4.8); Lymphocytes % (Auto) 14 % (10-50); Mean Corpuscular HGB Conc 32.3 g/dl (31.0-37.0); Mean Corpuscular Hemoglobin 28.6 pg (25.0-35.0); Mean Corpuscular Volume 89 fL (80-100); Monocytes # (Auto) 0.5 Thou/mm3 (0.0-0.8); Monocytes % (Auto) 5 % (0-12); Neutrophils # (Auto) 8.1 Thou/mm3 (1.8-7.7); Neutrophils % (Auto) 78 % (37-80); Nucleated Red Blood Cell # 0.00 Thou/mm3 (0.00-0.00); Nucleated Red Blood Cell % 0 /100 WBC (0); Platelet Count 242 Thou/mm3 (140-440); RDW Standard Deviation 58.4 fL (36.4-46.3); Red Blood Count 3.04 Miln/mm3 (4.00-5.20); White Blood Count 10.4 Thou/mm3 (3.6-11.0)
[2025-03-05 15:12] LABS: INR 1.0 (0.9-1.3); Partial Thromboplastin Time 37.0 Seconds (22.0-36.0); Prothrombin Time 11.1 Seconds (9.0-12.2)
[2025-03-05 15:18] LABS: B-Type Natriuretic Peptide 136 pg/mL (0-100)
[2025-03-05 15:21] LABS: Alanine Aminotransferase 10 U/L (10-49); Albumin, Serum 4.0 gm/dL (3.4-4.8); Albumin/Globulin Ratio 1.3 (1.2-2.2); Alkaline Phosphatase 150 U/L (46-116); Anion Gap 7 (7-16); Aspartate Amino Transferase 15 U/L (0-34); BUN/Creatinine Ratio 13 Ratio (12-20); Bilirubin,Total 0.4 mg/dL (0.3-1.2); Blood Urea Nitrogen 28 mg/dL (9-23); Calcium 9.0 mg/dL (8.3-10.6); Calcium (Corrected) 9.0 mg/dL (8.5-10.1); Carbon Dioxide 29.8 mMol/L (20.0-31.0); Chloride 99 mMol/L (98-107); Creatinine (Component) 2.1 mg/dL (0.6-1.3); Estimated Creatinine Clearance 19.1 mL/min (>60); Free T4 (Free Thyroxine) 1.05 ng/dL (0.89-1.76); Globulin 3.1 gm/dL (2.3-3.5); Glucose 132 mg/dL (74-106); Magnesium 1.9 mg/dL (1.6-2.6); Osmolality,Calculated 279 (275-295); Potassium 4.1 mMol/L (3.4-5.1); Sodium 136 mMol/L (136-145); Thyroid Stimulating Hormone 1.47 uIU/mL (0.55-4.78); Total Protein 7.1 gm/dL (5.7-8.2); Troponin I < 0.020 ng/mL (0.0-0.045); eGFR 23 See Note
[2025-03-05 15:36] LABS: Hemoglobin 8.7 g/dL (12.0-16.0)
--- NOTE | 2025-03-05 18:01 | EDNOTE_ITS ---
ED General RME/HPI General Chief complaint: Chest Pain Stated complaint: NUMBNESS R) HAND, CHEST PAIN, NECK PAIN, WEAKNESS Time Seen by Provider: 03/05/25 17:55 Arrival date/time: 03/05/25 13:43 CC: Right sided chest pain HPI onset approximately lasting 1 hour while during dialysis then prostate easily resolved. The patient denies any left-sided potential chest pain denies any shortness of breath or difficulty breathing patient had a full session of dialysis she is typically dialyzed on Wednesday and Wednesday denies fever chills shortness of breath or difficulty breathing. Currently the patient is pain-free. RME / HPI RME / HPI narrative: 03/05/25 13:43 84-year-old female with a history of hyperlipidemia, type 2 diabetes, end-stage renal disease on dialysis Wednesday, presents to the emergency room with a chief complaint of 5 out of 10 right sided sternal chest pain that began today during her dialysis treatment 1 hour ago. I have greeted and performed a focused initial assessment of this patient. A com prehensive ED assessment and evaluation of the patient, analysis of all test results, and completion of the medical decision making process will be conducted by additional ED providers. Exam: Patient is complaining of 5 out of 10 sternal chest pain. Patient has a strong and regular rhythm. Clear bilateral lung sounds Impression: STEMI/NSTEMI/ Related Data Home Medications ?Medication ?Instructions ?Recorded ?Confirmed atorvastatin 20 mg tablet 20 mg PO HS 03/11/22 5 benzonatate 100 mg capsule 100 mg PO TID 03/11/2212/13 losartan 100 mg tablet 100 mg PO DAILY for BP 04/2712/27/24 sertraline 25 mg tablet 25 mg PO HS 04/28/24 5 blood sugar diagnostic (True 12/27/24 12/27/24 Metrix Glucose Test Strip) labetalol 100 mg tablet 100 mg PO BID 12/27/2412/27 pen needle, diabetic 32 gauge x 12/27/24 12/27/24 (Jeanne 2nd Gen Pen Needle) Previous Rx's ?Medication ?Instructions ?Recorded albuterol sulfate 90 mcg/actuation 2 puff inhalation Q 6H PRN 10/19/24 aerosol inhaler shortness of breath or wheez ing #8.5 grams clonidine HCl 0.1 mg tablet 0.1 mg PO BID #60 tabs insulin aspart U-100 100 unit/mL 4 unit (0.04 mL) subc ut TIDWM 1 12/28/24 (3 mL) subcutaneous pen (Novolog month #15 mL FlexPen U-100 Insulin aspart) insulin degludec 200 unit/mL (3 20 unit (0.1 mL) subcu t QDAY 1 12/28/24 mL) subcutaneous pen (Tresiba month #3 mL FlexTouch U-200 insulin) alprazolam 0.25 mg tablet (Xanax) 0.25 mg PO QDAY PRN anxiety #10 02/02/25 tabs Allergies Allergy/AdvReac Type Severity Reaction Status Date / Time amoxicillin Allergy Severe Vomiting Verified 03/05/25 13:47 codeine Allergy Severe PALPITATION Verified 03/05/25 13:47 S diazepam Allergy Severe RAPID Verified 03/05/25 13:47 HEARTRATE hydrocodone Allergy Severe Vomiting Verified 03/05/25 13:47 hydromorphone Allergy Severe Agitated Verified 03/05/25 13:47 ibuprofen Allergy Severe BLEEDING Verified 03/05/25 13:47 IN STOMACH PER PT meperidine Allergy Severe RAPID Verified 03/05/25 13:47 HEARTRATE morphine Allergy Severe RAPID Verified 03/05/25 13:47 HEARTRATE propoxyphene Allergy Severe RAPID Verified 03/05/25 13:47 HEARTRATE adhesive tape AdvReac Severe Hives Verified 03/05/25 13:47 levofloxacin AdvReac Severe VOMITS Verified 03/05/25 13:47 Review of Systems Review of Systems Narrative Review of Systems: GEN: No fever, no chills, no weight loss EYES: No discharge, no visual changes, no pain HEENT: No ear pain, no congestion, no sore throat PULM: No shortness of breath, no cough, no congestion CV: + chest pain, no dyspnea on exertion, no palpitations GI: No nausea, no vomiting, no diarrhea, no pain, no constipation : No frequency, no urgency, no dysuria MUSC/SKEL: No joint pain, no back pain SKIN: No rash PSYCH: No hallucinations, no depression HEME/LYMPH: No easy bleeding or bruising tendencies NEURO: No weakness, no headache Past Medical History Past Medical History NEUROLOGIC: Positive Traumatic Brain Injury; Negative Neurological Disorders, Cerebrovascular Accident, Transient Ischemic Attacks (TIA), Dementia, Alzheimer's Disease, Parkinson's Disease, Brain Tumor, Meningitis, Seizures, Epilepsy, Multiple Sclerosis, Cerebral Palsy, Amyotrophic Lateral Sclerosis (ALS/Lilliam Gehrig's), Guillain-Kirby Syndrome, Spina Bifida, Paralysis, Peripheral Neuropathy, Junior's Palsy, Subdural Hematoma, Migraine, Head Trauma or Spinal Cord Injury CARDIAC: Positive Cardiac Disorders, Myocardial Infarction, Angina, Hypercholesterolemia, Edema, Deep Vein Thrombosis and Hypertension; Negative Cardiac Arrhythmia, Atrial Fibrillation, Heart Murmur, Coronary Artery Disease, Atherosclerotic Heart Disease, Peripheral Vascular Disease, Aneurysm, Congestive Heart Failure, Congenital Heart Disease, Valvular Heart Disease, Rheumatic Fever, Cardiomyopathy, Pericarditis, Cellulitis, Hypotension or Varicose Veins RESPIRATORY: Positive Asthma, Bronchitis and Pneumonia; Negative Chronic Obstructive Pulmonary Disease (COPD), Emphysema, Pulmonary Fibrosis, Cystic Fibrosis, Tuberculosis, Pulmonary Embolism, Pulmonary Edema or Sleep Apnea GASTROINTESTINAL: Positive Gastrointestinal Disorders, Gastroesophageal Reflux Disease and Obesity; Negative Hepatitis, Cirrhosis, Pancreatitis, Celiac Disease, Gall Bladder Disease, Gastrointestinal Bleed, Esophageal Varices, Romero's Esophagus, Colitis, Ulcerative Colitis, Diverticulitis, Diverticulosis, Ulcer, Colorectal Cancer, Irritable Bowel, Crohn's Disease, Obstructive Bowel, Hiatal Hernia or Hemorrhoids GENITOURINARY: Positive Genitourinary Disorders, Renal Disease and Dialysis; Negative Kidney Stones, Polycystic Kidney Disease, Neurogenic Bladder, Inguinal Hernia or Benign Prostatic Hyperplasia REPRODUCTIVE: Positive Previous Pregnancies; Negative Breast Cancer, Endometriosis, Genital Herpes, Gonorrhea, Pelvic Inflammatory Disease, Syphilis or Uterine Prolapse MUSCULOSKELETAL: Positive Musculoskeletal Disorders and Arthritis; Negative Muscular Dystrophy, Myasthenia Gravis, Marfan's Syndrome, Bone Cancer, Rheumatoid Arthritis, Osteoporosis, Degenerative Disk Disease, Gout, Scoliosis, Carpal Tunnel Syndrome, Fibromyalgia, Fractures, Degenerative Joint Disease, Osteomyelitis or Poliovirus ENT: Negative Cataracts, Glaucoma, Blind, Retinal Detachment, Macular Degeneration, Ear Infection, Head Trauma or Eye Prosthesis ENDOCRINE: Positive Endocrine Disorders and Diabetes Mellitus Type 2; Negative Diabetes Mellitus Type 1, Hypoglycemia, Daniel's Syndrome, Burton's Disease, Hyperthyroidism, Hypothyroidism, Parathyroid Disease, Pituitary Disease, Systemic Lupus Erythematosus, Syndrome of Inappropriate Antidiuretic Hormone (SIADH), Adrenal Disease or Graves' Disease HEMATOLOGIC: Positive Blood Disorders and Anemia; Negative Sickle Cell Disease or Clotting Problems PSYCHO/SOCIAL: Positive Anxiety; Negative Psychiatric Problems, Schizophrenia, Recreational Drug Use, Bipolar Disorder, Depression, Behavior Problems, Self-Mutilation, Attention Deficit Disorder, Attention Deficit Hyperactivity Disorder, Depression, Post Traumatic Stress Disorder or Eating Disorder OTHER HISTORY: Positive Hospitalization, Blood Transfusions, Chicken Pox, Measles and Mumps; Negative Autoimmune Disease, Down Syndrome, Autism, Developmental Delay, Shingles, Falls, Blood Transfusion Reaction, Anesthesia Reactions, Organ Transplant, Chemotherapy, Radiation Therapy, Hyperbaric Therapy, MRSA, VRSA, Vancomycin-Resistant Enterococci, Human Immunodeficiency Virus (HIV), Rubella ([place] Islander Measles), Pertussis, Clostridium Difficile, Cancer, Breast Cancer, Cervical Cancer, Colorectal Cancer, Lung Cancer or Ovarian Cancer Family History FAMILY HISTORY: Positive Family Respiratory Disorders, Family Cardiac Disorders and Family Cancer; Negative Family Psychiatric Problems, Family Gastrointestinal Problems, Family Surgery or Family Anesthesia Reaction Surgical History SURGICAL: Positive Angiogram, Abdominal Surgery and Hysterectomy; Negative Cardiac Surgery, Open Heart Surgery, Coronary Artery Bypass Graft, Valve Replacement, Vascular Surgery, Coronary Stent, Cardiac Catheterization, Pacemaker, Auto Implanted Cardiovert Defib, Carotid Endarterectomy, Endocrine Surgery, Thyroidectomy, Ear Surgery, Tympanostomy Tube, Eye Surgery, Nose Surgery, Oral Surgery, Tonsillectomy, Adenoidectomy, Cochlear Implant, Corneal Transplant, Throat Surgery, Tracheostomy, Gastric Bypass Surgery, Gastrostomy, Bowel Surgery, Nephrectomy, Joint Replacement, Amputation, Arthroscopy, Neurologic Surgery, Brain Shunt, Mastectomy, Lumpectomy, Tubal Ligation, Section or Organ Transplant Social History SMOKING STATUS: Never smoker SECOND HAND EXPOSURE: No SUBSTANCE USE: does not use ED Exam Narrative Physical exam: [General: Obese not in any acute distress Head normocephalic HEENT: Within acceptable limits Neck is supple nontender Chest equal chest rise right sided chest tenderness to palpation, clinically significant to the complaint of right chest pain. Left-sided chest dialysis catheter dressing clean dry and intact. No surrounding erythema or edema. Respiratory: Clear to auscultation no wheezes crackles or rubs CV: Rate rhythm is regular no murmurs rubs or clicks Abdomen is distended secondary to body habitus soft nontender no masses positive bowel sounds all 4 quadrants Back: No CVA tenderness no spinous process tenderness from cervical spine thoracic and lumbar spine Skin: Intact no petechiae rash induration ulceration or crepitus Extremities: Moving all extremity against resistance cap refill less than 2 seconds neurosensory intact Neuro: Awake alert oriented x3 Glascow coma 15 no focal deficits] Course Course Course Narrative: All the chest pain was reproduced with palpation at this time comfortable discharging the patient home with right-sided chest wall pain. Quality Measures none Orders Category Date Time Status EKG (ED ONLY) *Do not use* NOW Care 03/05/25 14:22 Completed EKG (ED Only) Stat Exams 03/05/25 14:22 Draft XR chest 1V portable Stat Exams 03/05/25 14:22 Completed B-Type Natriuretic Peptide Stat Lab 03/05/25 14:41 Completed CBC Stat Lab 03/05/25 14:41 Completed Comprehensive Metabolic Panel Stat Lab 03/05/25 14:41 Completed Free T4 (Free Thyroxine) Stat Lab 03/05/25 14:41 Completed Magnesium Stat Lab 03/05/25 14:41 Completed Partial Thromboplastin Time Stat Lab 03/05/25 14:41 Completed Prothrombin Time with INR Stat Lab 03/05/25 14:41 Completed TSH [Thyroid Stimulating Hormone] Stat Lab 03/05/25 14:41 Completed Troponin I Stat Lab 03/05/25 14:41 Completed Urinalysis, C/S if Indicated Stat Lab 03/05/25 14:22 Ordered Vital Signs Vital signs: Vital Signs Temperature 98.5 F 03/05/25 14:23 Pulse Rate 80 03/05/25 14:23 Respiratory Rate 20 03/05/25 14:23 Blood Pressure 156/79 H 03/05/25 14:23 Pulse Oximetry (%) 98 03/05/25 14:23 Oxygen Delivery Method Room Air 03/05/25 14:23 Discharge Plan Plan Patient Disposition: HOME (Self Care) Patient condition on transfer: Stable Prescriptions/Referrals Prescriptions/Med Rec: No Action losartan 100 mg tablet 100 mg PO DAILY Patient Comments: TAKE 1 TABLET BY MOUTH EVERY DAY sertraline 25 mg tablet 25 mg PO HS Patient Comments: TAKE 1 TABLET BY MOUTH AT BEDTIME clonidine HCl 0.1 mg tablet 0.1 mg PO BID Qty: 60 0RF alprazolam [Xanax] 0.25 mg tablet 0.25 mg PO QDAY PRN (Reason: anxiety) Qty: 10 0RF Rx Instructions: Take 1 tablet 30 minutes prior to dialysis atorvastatin 20 mg tablet 20 mg PO HS benzonatate 100 mg capsule 100 mg PO TID Patient Comments: TAKE 1 CAPSULE BY MOUTH TWICE DAILY albuterol sulfate 90 mcg/actuation HFA aerosol inhaler 2 puff inhalation Q6H PRN (Reason: shortness of breath or wheezing) Qty: 8.5 0RF labetalol 100 mg tablet 100 mg PO BID Patient Comments: TAKE 1 TABLET BY MOUTH TWICE A DAY (DME) True Metrix Glucose Test Strip Strip Patient Comments: USE TO TEST BLOOD SUGAR THREE TIMES DAILY (DME) pen needle, diabetic [Jeanne 2nd Gen Pen Needle] 32 gauge x 5/32 needle Patient Comments: USE DIRECTED FOUR TIMES DAILY insulin aspart U-100 [Novolog FlexPen U-100 Insulin] 100 unit/mL (3 mL) insulin pen 4 unit SUBCUT TIDWM 30 Days Qty: 15 0RF Patient Comments: INJECT 10 UNITS UNDER THE SKIN THREE TIMES DAILY WITH MEALS insulin degludec [Tresiba FlexTouch U-200] 200 unit/mL (3 mL) insulin pen 20 unit SUBCUT QDAY 30 Days Qty: 3 0RF Referrals: Collin Herrera PA-C [Primary Care Provider] - In 1 week Problem List Clinical Impression: Chest wall pain Patient/Caregiver Discharge Instructions Education Materials: ED Chest Pain, Uncertain Cause Additional Instructions: Follow-up with your primary care doctor if there is a worsening of symptoms return to the emergency room for reevaluation. Print Language: Ethiopian Stand Alone Forms: Grace Award Info., Patient Portal Info Letter PA/ESTRELLITA Supervising Physician PA/ESTRELLITA Supervising Physician: Kyler Carrero ENP [facility] Clinical Information Provided by: patient Medical Records reviewed [facility] Meds/Rx considered, not ordered None Labs/Rad/Tests considered, not ordered None Chronic Illness/Social Conditions Explain: ESRD dialysis EKG Interpretation EKG #1: EKG Interpretation: EKG performed at 1426 shows a ventricular rate of 80 TN interval 149 QRS of 102 QTc of 421 this is sinus rhythm nonspecific ST-T wave abnormalities. Labs Labs: interpreted by wa Lab(s) Interpretation(s): CBC shows no acute leukocytosis with anemia showing hemoglobin of 8.7 hematocrit of 26.9 respectively. Platelets of 242 Coags show PT of 11.1 INR 1.0 PTT of 37.0 CMP shows BUN of 28 a creatinine of 2.1. Glucose of 132 no other electrolyte an d abnormalities, no transaminitis or T. bili elevation BNP of 136 Troponin of less than 0.020. TSH of 1.47 Free T4 of 1.05. Imaging Imaging interpretation: interpreted by me Imaging Interpretation(s): Chest x-ray is negative for any acute finding Medication Administration(s) none Diagnosis Differential Diagnosis ED Complaint MDM: ACS NC pneumonia
== END 2025-03-05 18:09 | disposition home or self-care (01) ==
PROVIDERS: Nurse Practitioner Family; Emergency Provider Family Medicine; PCP Physician Assistant
DX: R07.89 Other chest pain (principal); R94.31 Abnormal electrocardiogram [ECG] [EKG]; I12.0 Hypertensive chronic kidney disease with stage 5 chronic kidney disease or end stage renal disease; E78.00 Pure hypercholesterolemia, unspecified; E11.22 Type 2 diabetes mellitus with diabetic chronic kidney disease; N18.6 End stage renal disease; Z99.2 Dependence on renal dialysis; Z79.4 Long term (current) use of insulin
CPT/HCPCS: 36415; 71045; 80053; 81001; 83735; 83880; 84439; 84443; 84484; 85025; 85610; 85730; 93005; 99283